=== PATIENT | female | born 1970 | race African-American/Black ===

== ENCOUNTER 2018-06-17 14:44 | Emergency (ER) | payer BC, SELFPAY ==
[2018-06-17 14:44] VITALS: BP 206/121; PULSE 97; RESP 16; TEMP 36.4; O2SAT 98; BMI 36.2
[2018-06-17 15:14] VITALS: BP 172/111; PULSE 90; RESP 16; O2SAT 98
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
[2018-06-17] MEDS: diazePAM 5 MG Tablet PO (15:39)
[2018-06-17] MEDS: oxyCODONE 5 MG Tablet PO (15:39)
[2018-06-17] MEDS: Naproxen 500 MG Tablet PO (15:40)
[2018-06-17 15:41] VITALS: BP 164/110
== END 2018-06-17 15:43 | disposition home or self-care (01) ==
PROVIDERS: Emergency Provider Emergency Medicine; Family Provider Family Medicine; PCP Family Medicine
DX: M62.830 Muscle spasm of back (principal); V89.2XXA Person injured in unspecified motor-vehicle accident, traffic, initial encounter; Y93.9 Activity, unspecified; Y92.9 Unspecified place or not applicable; M54.9 Dorsalgia, unspecified; J45.909 Unspecified asthma, uncomplicated; E11.9 Type 2 diabetes mellitus without complications; I10 Essential (primary) hypertension; Z79.84 Long term (current) use of oral hypoglycemic drugs; Z79.899 Other long term (current) drug therapy
CPT/HCPCS: 99283

== ENCOUNTER 2019-04-20 19:25 | Observation (INO) | payer BC, SELFPAY ==
[2019-04-20] VITALS (10 sets, daily range): BP systolic 74–127; BP diastolic 34–88; PULSE 78–96; RESP 15–20; TEMP 36.6–37; O2SAT 97–100; BMI 36.9; BMI 36.8
--- NOTE | 2019-04-20 19:36 | EKG12_ITS ---
Test Reason : Blood Pressure : / mmHG Vent. Rate : 084 BPM Atrial Rate : 084 BPM P-R Int : 126 ms QRS Dur : 082 ms QT Int : 396 ms P-R-T Axes : 055 042 048 degrees QTc Int : 467 ms Normal sinus rhythm Nonspecific ST abnormality Abnormal ECG Confirmed by SARAVANAN MACHADO, JOVON ([id number]), non linear editor RAY PANDEY ([id number]) on 04/21/2019 1:23:09 PM Referred By: Leo Ge Confirmed By:JOVON COE MD
--- NOTE | 2019-04-20 19:48 | ED.DCSUM_ITS ---
- ER Visit Summary Date of Service: 04/20/19 Chief Complaint: Rash, hives and itching History of Present Illness: The patient is a 48 F history of prior stroke earlier this year and [id number] diabetes. Patient states within the last hour she started having highs, itching and just not feeling well. States that the only time she had allergic reaction before with the fish and thinks that she may have ate something that had fish with it was cooked with it. She denies any nausea, vomiting or diarrhea. No fever. She is on no new medications. She is not on any type of WHIT inhibitor. And she is currently not on any antibiotics. Physical Examination: Middle-aged female no acute distress vital signs are stable afebrile. HEENT exam minimal swelling to her lower lip. Tongue unremarkable. No trouble swallowing, breathing. No drooling or stridor. Neck nontender. Lungs clear to auscultation bilaterally. No wheezing. Heart regular rhythm no murmur. Rate about 90. Abdomen is soft and nontender. Normal bowel sounds no peritoneal signs. Patient moving all 4 extremities. Neurovascular intact. She has a rash consistent with hives on both thighs her abdomen and back. Neurologically she is awake alert with no focal motor deficits. She is moving all 4 extremities. Test Results: Patient states she was dizzy the nurses per protocol did an EKG which showed a sinus rhythm rate 84 with no acute signs of AR or ischemia. I do not think there is any type of cardiac etiology at this time. Emergency Department Course and Treatment: Patient's history exam is consistent with a diffuse allergic reaction with hives. She will be treated with IV Solu- Medrol, IV Benadryl and p.o. Pepcid. Repeat exam patient is doing well at 2110. She was given a dose of p.o. Ativan for being anxious. Her rash is resolving she looks better. Repeat exam this patient rash is improving but was still present. We still during her pressure dropped in the 80s systolically. She is Nael received a liter of fluid. She will be given a second. I do not think she needs epinephrine at this time given her age, diabetes and recent stroke unless she worsens I do not think epinephrine is necessary. I do think she would warrant admission to be observed overnight. I discussed this with the hospitalist. Due to the admission he wanted some screening labs were to be checked out to be overnight.and the patient will be admitted to PCU Treatment Plan: Prednisone daily. Benadryl for the itching. Follow-up if not improving return if worse. Disposition: Discharge Impression: Acute generalized allergic reaction with hives with transient hypotension History of prior CVA History of diabetes This note was generated with [employer] dictation software. It may contain incorrect words, spelling, and punctuation that were not noted in review of the chart prior to signing ED Disposition - Plan for ED Patient: Disposition: Home or Assisted Living Instructions: ED Urticaria Prescriptions: Prednisone [Deltasone] 40 mg PO DAILY 3 Days tab Referrals: Jaspreet Henry MD [Primary Care Provider] - 3-5 Days if not improving Additional Instructions: Prednisone for the hives. Take daily. Watch her blood sugars closely because the prednisone will increase your blood sugars typically. Benadryl also for itching and the allergic reaction. Follow-up with your doctor if not improving return if worse.
[2019-04-20] MEDS: DiphenhydrAMINE 50 MG/ML Syringe IV (19:50)
[2019-04-20] MEDS: Famotidine 20 MG Tablet 40 MG PO (19:50)
[2019-04-20] MEDS: MethylPREDNISolone 125 MG/2 ML Vial IV (19:50)
--- NOTE | 2019-04-20 21:11 | ED.DEP ---
ED Disposition - Plan for ED Patient: Disposition: Home or Assisted Living Instructions: ED Urticaria Prescriptions: Prednisone [Deltasone] 40 mg PO DAILY 3 Days tab Referrals: Jaspreet Henry MD [Primary Care Provider] - 3-5 Days if not improving Additional Instructions: Prednisone for the hives. Take daily. Watch her blood sugars closely because the prednisone will increase your blood sugars typically. Benadryl also for itching and the allergic reaction. Follow-up with your doctor if not improving return if worse.
[2019-04-20] MEDS: LORazepam 1 MG Tablet PO (21:21)
--- NOTE | 2019-04-20 21:37 | ED.RN ---
1929 STOOD PT UP FOR DC AND SHE STATES SHE FELT DIZZY AND NAUSEOUS. SAT HER IN WHEELCHAIR AND BP WAS 74/34. PULSE 84 SPO2 97 ON RA. WITH ASSISTANCE, WE RETURNED PT TO THE BED FOR OBSERVATION. 1934 BP IS 113/62. FAMILY PRESENT IN ROOM. WILL CONTINUE TO MONITOR.
--- NOTE | 2019-04-20 21:59 | ED.RN ---
HOSPITALIST PAGED FOR DR PEREIRA
--- NOTE | 2019-04-20 22:00 | ED.RN ---
Addendum entered by Marisela Alexander 04/20/19 22:30: PT PLACED BACK ON BED REMAINS IN SAFE AND COMFORTABLE POSITIONING. 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 PT TO BE ADMITTED PER DR. PEREIRA. Original Note: PT REPORTS CONTINUED NAUSEA AND DIZZINESS. PT ORTHOS POSITIVE. DR. PEREIRA INFORMED WILL CONTINUE TO MONITOR.
--- NOTE | 2019-04-20 22:04 | HP.PCM_ITS ---
Problem List (1) Allergic reaction Status: Acute (2) Diabetes Status: Chronic History of Present Illness Date of Admission: 04/20/19 Chief Complaint: hives. 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 Her symptoms started on the same day of presentation. Associated with her symptoms is generalized body itching. Lightheadedness; and weakness which caused her to sit down. Also patient reports lip swelling and swelling of her face. At emergency department patient was given Benadryl; Pepcid; Ativan and methylprednisone. The plan was to discharge patient for the emergency department. However patient systolic blood pressure was 120s but upon getting up her systolic blood pressure dropped to the 80s for which reason a consideration was made to admit the patient. Also patient received IV fluids at the emergency department. Although, she is allergic to face she denies eating fish or coming into contact with fish. She cannot pinpoint any trigger at this time except using a blanket of her brother who recently flew from [place]. Her brother also denied eating fish. Past Medical History Past Medical History (Chronic Problems): Chronic Problems (Last Reviewed 04/20/19 @ 22:58 by Leo Ge MD) Diabetes (Chronic) Medical History: Medical History (Last Reviewed 04/20/19 @ 22:58 by Leo Ge MD) Asthma J45.909 Diabetes E11.9 HTN (hypertension) I10 Allergies Tetanus Vaccines and Toxoid Adverse Reaction (Verified 01/25/18 11:22) Hives Home Medications: Ambulatory Orders Medication Instructions Recorded hydroCHLOROthiazide 1 tab PO DAILY 09/21/16 [Hydrochlorothiazide] amlodipine 10 mg tablet 10 mg PO DAILY 30 Days #30 01/25/18 metformin 500 mg tablet 1,000 mg PO BID 30 Days #60 01/25/18 Diazepam [Valium] 5 mg PO Q8 PRN #10 tablet 06/17/18 Naproxen [Naprosyn] 500 mg PO BID PRN PRN #20 tablet 06/17/18 Oxycodone HCl/Acetaminophen 1 tablet PO Q6H PRN PRN 3 Days #12 06/17/18 [Percocet 5/325] tablet Aspirin [Adult Low Dose Aspirin EC] 81 mg PO 04/20/19 Clopidogrel Bisulfate [Plavix] 75 mg PO DAILY 04/20/19 Glimepiride [Amaryl] 1 mg PO DAILY 04/20/19 Metoprolol Tartrate [Lopressor 25 mg PO BID 04/20/19 (Beta Leora)] Prednisone [Deltasone] 40 mg PO DAILY 3 Days tab 04/20/19 Surgical History: Surgical History (Last Updated 01/25/18 @ 11:23 by Juana Carmona) Ovarian mass N83.9 Smoking Status: Never smoker Review of Systems Constitutional: Reports: Weakness. Denies: Fever, Weight Change HEENT: Denies: Head Aches, Sinus Congestion, Sinus Drainage Cardiovascular: Reports: Light Headedness. Denies: Chest Pain, Palpitations Respiratory: Denies: Cough, Shortness of breath at rest, Sputum production Gastrointestinal: Reports: Nausea. Denies: Abdominal Pain, Vomiting Genitourinary: Denies: Dysuria Musculoskeletal: Denies: Joint Pain, Joint Tenderness Skin: Denies: Rash, Wounds Neurological: Denies: Numbness, Tingling, Focal weakness Psychiatric: Denies: Anxiety, Depression, Homicidal Ideations, Suicidal Keely ations Hematologic/ Lymphatic: Denies: Easy Bruising, Easy Bleeding VTE Information - Inpt Only VTE Present on Admission: No VTE Mechan Device Prophylaxis: None VTE Pharm Prophylaxis ordered?: Yes Patient Problems: Active and Suspected Problems (Last Reviewed 04/20/19 @ 22:58 by Leo Ge MD) Allergic reaction (Acute) - Physical Exam General: Alert, Oriented x3, Cooperative, - - Observed rigors HEENT: Atraumatic, Normocephalic, - - Lower lip swelling Neck: Supple, No JVD, Negative Carotid Bruits Lungs: Clear to auscultation, Normal air movement Cardiovascular: Regular rate, No murmurs Abdomen: Bowel Sounds Present, Soft, Non Tender Extremities: No edema, Capillary Refill Less than 3 Seconds Skin: No breakdown, - - Diffuse wheals Musculoskeletal: No Tenderness to Palpation of Joints or Extremities Neurological: Neuro grossly intact Psych/Mental Status: Normal Affect, Appropriate Vital Signs Temp Pulse Resp BP Pulse Ox 98.2 F 86 16 115/88 H 97 04/20/19 19:26 04/20/19 21:57 04/20/19 21:32 04/20/19 21:57 04/20/19 21:32 Oxygen Delivery Method Room Air Weight: 97.7 kg Body Mass Index (BMI) 36.9 Assessment/Plan All Active Problems (Last Reviewed 04/20/19 @ 22:58 by Leo eG MD) Allergic reaction (Acute) The patient is a 48 year old F with a significant history of CVA; hypertension; diabetes mellitus and 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 Probable Allergic reaction We will admit to progressive care unit on observation status and on telemetry. Received IV fluid at the emergency department. We will continue normal saline infusion. We will hold home blood pressure medications. Received Solu-Medrol; Pepcid and Benadryl at emergency department. Also received Ativan. Solu-Medrol; Pepcid and loratadine scheduled. PRN Benadryl and epinephrine ordered. Lactic acidosis: Lactic acid is 3.8. Likely due to probable allergic reaction or dehydration. Her metformin use could also be contributing to her elevated lactic acid. Hold metformin. IV hydration as above. Trend lactic acid. Elevated creatinine without diagnosis of MARIANA: On presentation her creatinine was 1.27. Review of records show that in 2016 her creatinine was 1.08. IV fluids as above. Trend BMP. Diabetes mellitus with acute hyperglycemia. On admission her blood glucose was not within goal. Hold home metformin because of lactic acidosis. Continue Amaryl. Accu-Chek every 4 hours with correction scale insulin. Neutrophilic leukocytosis: Mild. Trend. History of CVA: Aspirin and Plavix continued. Hypertension: Hold home anti-hypertensive medication because of orthostatic hypotension in the setting of probable allergic reaction. Repeat orthostatic blood pressure in a.m. labetalol as needed for systolic blood pressure more than 160. DVT prophylaxis: Subcutaneous Lovenox. Code Visit OBSV E&M: 74775 Initial observation care L3
[2019-04-20] MEDS: 0.9% Normal Saline 1,000 ML 1000 ML IV (22:14)
[2019-04-20 22:30] LABS: Absolute Lymphocyte Count 2.59 X10^3/ul (0.83-4.51); Absolute Neutrophil Count 8.5 X10^3/uL (2.0-7.7); Basophil# 0.01 X10^3/uL; Basophil% 0.1 % (0-1); Eosinophil# 0.03 X10^3/uL; Eosinophils% 0.3 % (0-5); Hematocrit 43.6 % (37-47); Hemoglobin 14.3 g/dl (12.0-15.0); Lymphocyte # 2.59 X10^3/ul (4.0); Lymphocyte % 22.3 % (19-41); Mean Corp Hgb Conc 32.8 g/gl (32-36); Mean Corpuscular Hgb 27.1 pg (27.0-32.0); Mean Corpuscular Volume 82.7 fL (81-99); Mean Platelet Vol. 9.7 fl (6.2-12.0); Monocyte% 4.3 % (0-10); Neutrophil # 8.45 X10^3/uL (2.7-7.7); Neutrophil % 72.7 % (47-70); Platelet Count 362 K/mm3 (150-450); RBC Distribution Width CV 14.3 % (11.6-14.6); RBC Distribution Width SD 43.4 fl (35.1-43.9); Red Blood Count 5.27 M/mm3 (4.2-5.4); White Blood Count 11.6 K/mm3 (4.4-11.0)
[2019-04-20 22:35] LABS: POSITIVE COUNT NO; POSITIVE DIFFERENTIAL NO; POSITIVE MORPHOLOGY NO
[2019-04-20 22:41] LABS: Anion Gap 13 (5-15); BUN 16 mg/dL (7-18); BUN/Creat Ratio 12.6 RATIO (10-20); Calcium,Total 9.1 mg/dL (8.5-10.1); Chloride 101 mmol/L (98-107); Creatinine, Serum 1.27 mg/dL (0.55-1.02); EST Glomerular Filtration Rate 47 mL/min (>60); Est Glom Filt Rate - Afr Amer 57 mL/min (>60); Estimated Creatinine Clearance 45.76 ml/min; Glucose 325 mg/dL (74-106); Sodium Level 142 mmol/L (136-145)
[2019-04-20 22:57] LABS: Lactic Acid 3.8 mmol/L (0.4-2.0)
--- NOTE | 2019-04-20 22:59 | ED.RN ---
DR DE LEON AND DR GALARZA BOTH AWARE OF PT'S LACTIC ACID RESULTS.
[2019-04-21] MEDS: Insulin Lispro 100 UNIT/ML INSULN.PEN SQ ×3 (00:06→10:15)
[2019-04-21] MEDS: Loratadine 10 MG Tablet PO ×2 (00:06→10:17)
[2019-04-21] MEDS: 0.9% NaCl Peripheral Flush Adult/Peds IV ×2 (00:08→05:17)
[2019-04-21 00:11] LABS: Bedside Glucose 283 mg/dL (70-110)
[2019-04-21 02:26] LABS: Reflex Lactate? Y
[2019-04-21 03:02] VITALS: PULSE 79
[2019-04-21 03:10] LABS: Anion Gap 8 (5-15); BUN 14 mg/dL (7-18); BUN/Creat Ratio 12.4 RATIO (10-20); Calcium,Total 8.7 mg/dL (8.5-10.1); Chloride 105 mmol/L (98-107); Creatinine, Serum 1.13 mg/dL (0.55-1.02); EST Glomerular Filtration Rate 54 mL/min (>60); Est Glom Filt Rate - Afr Amer 65 mL/min (>60); Estimated Creatinine Clearance 49.27 ml/min; Glucose 292 mg/dL (74-106); Potassium 4.7 mmol/L (3.5-5.1); Sodium Level 137 mmol/L (136-145)
[2019-04-21 03:28] LABS: Hematocrit 39.2 % (37-47); Hemoglobin 12.7 g/dl (12.0-15.0); Mean Corp Hgb Conc 32.4 g/gl (32-36); Mean Corpuscular Hgb 26.6 pg (27.0-32.0); Mean Platelet Vol. 9.9 fl (6.2-12.0); Platelet Count 353 K/mm3 (150-450); RBC Distribution Width CV 14.3 % (11.6-14.6); RBC Distribution Width SD 42.7 fl (35.1-43.9); Red Blood Count 4.78 M/mm3 (4.2-5.4); White Blood Count 7.5 K/mm3 (4.4-11.0)
[2019-04-21 03:29] LABS: Scan Indicated on CBC? Y/N NO
[2019-04-21 03:43] LABS: Lactic Acid 3.9 mmol/L (0.4-2.0)
[2019-04-21 05:11] LABS: Bedside Glucose 261 mg/dL (70-110)
[2019-04-21 05:20] VITALS: BP 124/78; PULSE 85; RESP 18; TEMP 36.6; O2SAT 99
[2019-04-21 05:30] VITALS: BP 118/73; BP 124/78; BP 126/78; PULSE 100; PULSE 79; PULSE 81
[2019-04-21 07:08] VITALS: PULSE 90
[2019-04-21 07:23] VITALS: O2SAT 97
[2019-04-21] MEDS: Clopidogrel Bisulfate 75 MG Tablet PO (08:42)
[2019-04-21] MEDS: Famotidine 20 MG Tablet PO (08:42)
[2019-04-21] MEDS: Glimepiride 1 MG Tablet PO (08:42)
--- NOTE | 2019-04-21 09:17 | NURSING ---
patient walked in halls, no SOB or unsteadiness
[2019-04-21 10:20] LABS: Bedside Glucose 248 mg/dL (70-110)
--- NOTE | 2019-04-21 10:34 | DCINST_ITS ---
- Discharge Diagnoses Current Active Problems: Current Active and Chronic Problems (Last Reviewed 04/20/19 @ 22:58 by Leo Ge MD) Allergic reaction (Acute) Diabetes (Chronic) You will use the following diet at home:: Calorie/Carbohydrate Controlled (specify 1200, 1400, etc) - 1800 garcía Your food should be the consistency of: Regular Your liquids should be the consistency of: Regular/Thin Discharge Activity: Return to Normal Activity Weight Bearing Status: Full weight bearing Instructions: ED Urticaria Additional Instructions: take Benadryl 25 mg four times a day as needed for allergic symptoms Allergies/Adverse Reactions: Allergies Fish Containing Products Allergy (Verified 04/20/19 23:31) Swelling Tetanus Vaccines and Toxoid Adverse Reaction (Verified 01/25/18 11:22) Hives Medications to take at Discharge hydroCHLOROthiazide [Hydrochlorothiazide] 1 tab PO DAILY 09/21/16 amlodipine 10 mg tablet 10 mg PO DAILY 30 Days #30 01/25/18 metformin 500 mg tablet 1,000 mg PO BID 30 Days #60 01/25/18 Aspirin [Adult Low Dose Aspirin EC] 81 mg PO DAILY 04/20/19 Clopidogrel Bisulfate [Plavix] 75 mg PO DAILY 04/20/19 Glimepiride [Amaryl] 1 mg PO DAILY 04/20/19 Metoprolol Tartrate [Lopressor (beta gato)] 12.5 mg PO BID 04/20/19 MethylPREDNISolone DosePak [Medrol DosePak] 4 mg PO UD #1 box 04/21/19 The following prescriptions were given: MethylPREDNISolone DosePak [Medrol DosePak] 4 mg PO UD #1 box Primary Care Physician: Jaspreet Henry MD [Primary Care Provider] - 3-5 Days if not improving Please follow up with your Primary Care Physician in: in 1-2 weeks Test Results: Test results from this visit will be discussed in further detail at your follow- up appointment, if applicable.
[2019-04-21 11:00] VITALS: BP 114/71; PULSE 87; RESP 16; TEMP 36.8; O2SAT 97
--- NOTE | 2019-04-21 11:13 | PHA.DC.MC ---
Pharmacy Service has performed discharge medication reconciliation and counseling for this patient. The patient's discharge medication list was reviewed for discrepancies and discrepancies were resolved. The patient was counseled on the following discharge medications and changes in medications for homegoing were reviewed. 1. MEDROL DOSEPAK The Reason for Use, instructions for use, and potential side effects were reviewed for all new medications. The patient's questions regarding all of their medications were answered. The patient demonstrated some understanding but would benefit from further education and reinforcement.
--- NOTE | 2019-04-21 19:21 | DS.PCM_ITS ---
Discharge Date and Diagnosis Date of Admission: 04/20/19 Date of Discharge: 04/21/19 - Primary Discharge Diagnosis #1 acute allergic reaction with hives-etiology unclear #2 hypertension #3 type 2 diabetes - Secondary Discharge Diagnosis Chronic Problems (Last Reviewed 04/20/19 @ 22:58 by Leo Ge MD) Diabetes (Chronic) Hospital Course and Treatment Operations: None Procedures: None Summary of Care Provided: The patient is a 48 year old F was seen in the emergency room at [facility] with a chief complaint of rash, hives, and itching. She is highly allergic to fish and wonders whether she could have come into contact with fish. 613 examination in the emergency room showed the patient have a rash consistent with hives on both of her thighs, her abdomen, and her back. Patient had no shortness of breath and the remainder of her work-up was unremarkable. Patient was given Ativan p.o. for anxiety in the emergency room, rash appeared to be improved after ministration of IV Solu-Medrol, p.o. Pepcid, and IV Benadryl. She was also given IV fluids. The emergency room physician felt the patient should be observed overnight and the patient was placed in observation status on PCU and IV corticosteroids were continued. Patient's rash improved markedly and on 04/21/2019, patient was seen and examined: On examination she appeared in good health and spirits. Vital signs as documented. Skin warm and dry and without overt rashes. Neck without JVD. Lungs clear. Heart exam notable for regular rhythm, normal sounds and absence of murmurs, rubs or gallops. Abdomen unremarkable and without evidence of organomegaly, masses, or abdominal aortic enlargement. Extremities nonedematous. Neuro: Cranial nerves II through XII are grossly intact, no focal motor deficits were noted, sensation to light touch and pinprick is intact. Psych: Patient is alert and oriented x3, she does not appear anxious or depressed On 04/21/2019, patient was discharged home in stable condition. - Physical Exam Vital Signs Temp Pulse Resp BP Pulse Ox 98.2 F 87 16 114/71 97 04/21/19 11:00 04/21/19 11:00 04/21/19 11:00 04/21/19 11:00 04/21/19 11:00 Oxygen Delivery Method Room Air Weight: 94.4 kg Body Mass Index (BMI) 36.8 Intake and Output for Last 24 Hours 04/19/19 04/20/19 04/21/19 23:59 23:59 23:59 Intake Total 911 / 911 Balance 911 / 911 Laboratory Tests Past 24 Hrs 04/20/19 04/20/19 04/20/19 22:10 22:10 22:10 WBC 11.6 H RBC 5.27 Hgb 14.3 Hct 43.6 MCV 82.7 MCH 27.1 MCHC 32.8 RDW 14.3 RDW Differential 43.4 Plt Count 362 MPV 9.7 Immature Gran % (Auto) 0.300 Neut % (Auto) 72.7 H Lymph % (Auto) 22.3 [place] % (Auto) 4.3 Eos % (Auto) 0.3 Baso % (Auto) 0.1 Absolute Neuts (auto) 8.5 H Absolute Lymphs (auto) 2.59 Total Counted Not Reportable Sodium 142 Potassium 4.0 Chloride 101 Carbon Dioxide 28.0 Anion Gap 13 BUN 16 Creatinine 1.27 H Estim Creat Clear Calc 45.76 Est GFR (MDRD) Af Amer 57 L Est GFR (MDRD) Non-Af 47 L BUN/Creatinine Ratio 12.6 Glucose 325 H Lactic Acid 3.8 H Calcium 9.1 04/21/19 04/21/19 04/21/19 02:39 02:39 02:39 WBC 7.5 RBC 4.78 Hgb 12.7 Hct 39.2 MCV 82.0 MCH 26.6 L MCHC 32.4 RDW 14.3 RDW Differential 42.7 Plt Count 353 MPV 9.9 Immature Gran % (Auto) Neut % (Auto) Lymph % (Auto) [place] % (Auto) Eos % (Auto) Baso % (Auto) Absolute Neuts (auto) Absolute Lymphs (auto) Total Counted Sodium 137 Potassium 4.7 Chloride 105 Carbon Dioxide 24.0 Anion Gap 8 BUN 14 Creatinine 1.13 H Estim Creat Clear Calc 49.27 Est GFR (MDRD) Af Amer 65 Est GFR (MDRD) Non-Af 54 L BUN/Creatinine Ratio 12.4 Glucose 292 H Lactic Acid 3.9 H Calcium 8.7 POC Glucose 04/21/19 04/21/19 04/21/19 10:13 05:08 00:04 POC Glucose 248 H 261 H 283 H Discharge Activity: Return to Normal Activity Weight Bearing Status: Full weight bearing Home Medications: Medications to take at Discharge hydroCHLOROthiazide [Hydrochlorothiazide] 1 tab PO DAILY 09/21/16 amlodipine 10 mg tablet 10 mg PO DAILY 30 Days #30 01/25/18 metformin 500 mg tablet 1,000 mg PO BID 30 Days #60 01/25/18 Aspirin [Adult Low Dose Aspirin EC] 81 mg PO DAILY 04/20/19 Clopidogrel Bisulfate [Plavix] 75 mg PO DAILY 04/20/19 Glimepiride [Amaryl] 1 mg PO DAILY 04/20/19 Metoprolol Tartrate [Lopressor (beta gato)] 12.5 mg PO BID 04/20/19 MethylPREDNISolone DosePak [Medrol DosePak] 4 mg PO UD #1 box 04/21/19 Following Prescrptions Were Given to Patient: MethylPREDNISolone DosePak [Medrol DosePak] 4 mg PO UD #1 box Primary Care Physician: Jaspreet Henry MD [Primary Care Provider] - 3-5 Days if not improving Please follow up with your Primary Care Physician in: in 1-2 weeks Patient Instructions: ED Urticaria Disposition: Home Minutes spent on discharge:: 30 Patient Condition:: Stable Medical Necessity - Tobacco Use Smoking Status: Never smoker Meaningful Use Info Meaningful Use Diagnoses (Choose all that apply): None applicable Code Visit OBSV E&M: 41500 Observation care discharge
== END 2019-04-21 10:34 | disposition home or self-care (01) ==
LOC: ED 21:13 → PCU 23:02
PROVIDERS: Admitting Provider Hospitalist; Emergency Provider Emergency Medicine; Family Provider Family Medicine; PCP Family Medicine; Referring Provider Hospitalist; Visit Provider Internal Medicine
DX: L50.0 Allergic urticaria (principal); E11.9 Type 2 diabetes mellitus without complications; I10 Essential (primary) hypertension; Z79.02 Long term (current) use of antithrombotics/antiplatelets; Z79.899 Other long term (current) drug therapy; Z79.82 Long term (current) use of aspirin; Z79.84 Long term (current) use of oral hypoglycemic drugs; F41.9 Anxiety disorder, unspecified; Z86.73 Personal history of transient ischemic attack (TIA), and cerebral infarction without residual deficits; J45.909 Unspecified asthma, uncomplicated; E87.2 Acidosis
CPT/HCPCS: 80048; 82962; 83605; 85025; 85027; 93005; 96361; 96374; 96375; 96376; 99218; 99285; J7030; A4216; G0378

== ENCOUNTER 2020-07-18 14:05 | Emergency (ER) | payer MEDICAID, SELFPAY ==
[2019-04-20 23:25] VITALS: BMI 36.8
[2020-07-18 14:05] VITALS: BP 151/93; PULSE 77; RESP 16; TEMP 36.3; O2SAT 100; BMI 32.9
--- NOTE | 2020-07-18 14:32 | ED.VISSUMM ---
- ER Visit Summary Date of Service: 07/18/20 Chief Complaint: [Dental pain] History of Present Illness: The patient is a 50 F [presents the emergency department complaint of dental pain for the last 2 days. Patient states that she is actually had pain off and on for several months. Patient states that she had a stroke last year and ever since her stroke her teeth started to move. Patient states over last 2 days she is having hard time sleeping because of the pain in her mouth and it seems that the pain radiates to the right side of her head. Patient denies any photophobia or nausea. She denies any fevers. Patient is a diabetic and has history of hypertension as well as cholesterol history of stroke.] Physical Examination: [HEENT-PERRLA, EOMI. Cranial nerves II through XII grossly intact. TMs clear. Mucous membranes moist. No adenopathy. Titian-patient has tenderness palpation to her right lower second molar that seems to reproduce her pain. She has some gingival erythema noted. There is no abscess noted on exam. No fluctuance. There are some mild swelling to the right lower side of the face. No facial cellulitis noted. Cardiovascular-regular rate and rhythm without murmur or ectopy Lungs-clear to auscultation, chest wall stable without crepitus or subcu emphysema Abdomen-normoactive bowel sounds, soft, nontender, no rebound or rigidity, no peritoneal signs. Extremities-intact ?4, normal range of motion, normal pulses, atraumatic] Test Results: [None indicated] Emergency Department Course and Treatment: [] Treatment Plan: [Patient will be treated with clindamycin and [place] for pain. Patient will be referred to dentist for follow-up. Patient advised to return if fever, worsening pain, increased swelling, or condition should worsen anyway.] Disposition: [Discharged home in stable condition] Impression: [Dental pain Cephalgia] This note was generated with [employer] dictation software. It may contain incorrect words, spelling, and punctuation that were not noted in review of the chart prior to signing ED Disposition - Plan for ED Patient: Referrals: Jaspreet Henry MD [Primary Care Provider] -
--- NOTE | 2020-07-18 14:34 | ED.DEP ---
ED Disposition - Plan for ED Patient: Instructions: ED Headache Unspecified, ED Tooth Pain Prescriptions: Clindamycin HCl [Cleocin] 300 mg PO Q6H #40 cap Transmission Status: Pending to [facility] Hydrocodone Bitart/Apap 5-325 [[place] 5MG-325MG] 1 tablet PO Q4H PRN PRN 2 Days #14 tablet PRN Reason: Pain Transmission Status: Received by [facility] Referrals: Jaspreet Henry MD [Primary Care Provider] - Additional Instructions: see a dentist
== END 2020-07-18 14:45 | disposition home or self-care (01) ==
PROVIDERS: Emergency Provider Emergency Medicine; PCP Family Medicine
DX: K08.89 Other specified disorders of teeth and supporting structures (principal); R51 Headache; I10 Essential (primary) hypertension; E11.9 Type 2 diabetes mellitus without complications; Z86.73 Personal history of transient ischemic attack (TIA), and cerebral infarction without residual deficits; Z79.82 Long term (current) use of aspirin; Z79.84 Long term (current) use of oral hypoglycemic drugs; Z79.02 Long term (current) use of antithrombotics/antiplatelets; Z79.899 Other long term (current) drug therapy
CPT/HCPCS: 99282

== ENCOUNTER 2022-10-22 20:16 | Emergency (ER) | payer MEDICAID, SELFPAY ==
[2022-10-22 20:16] VITALS: BP 196/101; PULSE 131; RESP 18; TEMP 35.6; O2SAT 97
[2022-10-22 20:17] VITALS: BP 196/101; PULSE 131; RESP 18; TEMP 35.6; O2SAT 97; BMI 35.1
--- NOTE | 2022-10-22 20:51 | EKG12_ITS ---
Test Reason : DIZZINESS Blood Pressure : / mmHG Vent. Rate : 070 BPM Atrial Rate : 070 BPM P-R Int : 140 ms QRS Dur : 078 ms QT Int : 400 ms P-R-T Axes : 040 005 037 degrees QTc Int : 432 ms Normal sinus rhythm Normal ECG Confirmed by SARAVANAN MACHADO, JOVON ([id number]), editor index ZOILA DOS SANTOS ([id number]) on 10/23/2022 12:57:15 PM Referred By: Confirmed By:JOVON COE MD
--- NOTE | 2022-10-22 20:54 | EDS_ITS ---
HPI History of Present Illness Chief Complaint: Dizziness Informant: patient Narrative Narrative: 52-year-old female presenting with body aches, fever, cough. Symptoms started approximately 2 days ago. She states she has had lightheadedness with no syncope. Denies chest pain or shortness of breath. She has had nausea with no vomiting. Denies diarrhea. Denies abdominal pain. Multiple sick contacts. Prior similar symptoms: Yes Recent Illness/Hospitalization: No PFSH PFSH Medical History Asthma Diabetes HTN (hypertension) Home Medications hydrochlorothiazide 12.5 mg capsule 1 tab PO DAILY BLOOD PRESSURE 09/21/16 [History Last Taken Unknown] amlodipine 10 mg tablet 10 mg PO DAILY ANTIPLATELET 30 days ##30 01/25/18 [History Last Taken Unknown] metformin 500 mg tablet 1,000 mg PO BID BLOOD PRESSURE 30 days ##60 01/25/18 [History Last Taken Unknown] aspirin 81 mg tablet,delayed release (Adult Low Dose Aspirin) 81 mg PO DAILY ANTIPLATELET 04/20/19 [History Last Taken Unknown] clopidogrel 75 mg tablet 75 mg PO DAILY 04/20/19 [History Last Taken Unknown] glimepiride 1 mg tablet 1 mg PO DAILY BP 04/20/19 [History Last Taken Unknown] metoprolol tartrate 25 mg tablet 12.5 mg PO BID 04/20/19 [History Last Taken Unknown] methylprednisolone 4 mg tablets in a dose pack 4 mg PO UD ##1 04/21/19 [Rx Last Taken Unknown] clindamycin HCl 300 mg capsule 300 mg PO Q6H #40 caps 07/18/20 [Rx Last Taken Unknown] Allergy/AdvReac Type Severity Reaction Status Date / Time Fish Containing Products Allergy Swelling Verified 07/18/20 14:07 Tetanus Vaccines and Toxoid AdvReac Hives Verified 07/18/20 14:07 Surgical History Ovarian mass Social History Smoking Status: Never smoker alcohol intake: never ROS ROS ED Constitutional Constitutional ED: Reports chills and fever(s) Eyes Eyes: Denies change in vision ENT ENT ED: Reports rhinorrhea and sore throat Cardiovascular Cardiovascular: Denies chest pain or palpitations Respiratory/Chest Respiratory/Chest: Reports cough; Denies dyspnea Gastrointestinal Gastrointestinal: Reports nausea; Denies abdominal pain, diarrhea or vomiting Genitourinary Genitourinary ED: Denies dysuria Musculoskeletal Musculoskeletal: Reports myalgias; Denies neck pain Integumentary Denies rash Neurologic Neurologic: Denies headache(s) Psychiatric Psychiatric: Denies suicidal thoughts EXAM Physical Exam Const Vital Signs: 10/22/22 20:17 10/22/22 20:16 10/22/22 22:41 Temperature 96.0 F L 96.0 F L Temperature Source Temporal Temporal Pulse Rate 131 H 131 H 65 Respiratory Rate 18 18 16 Blood Pressure 196/101 H 196/101 H 152/87 H Blood Pressure Mean 132 132 108 Pulse Ox 97 97 100 Oxygen Delivery Method Room Air Room Air Room Air Positive well nourished and well developed General Appearance ED: well developed HEENT Reports normocephalic and head/scalp atraumatic Eyes PERRL and EOMs intact bilaterally Neck supple Neck Narrative: No meningismus General: Negative for tenderness Chest Wall inspection of chest normal Resp normal respiratory effort and clear to auscultation bilaterally Cardio regular rhythm Rate: tachycardic GI non-tender and non-distended Palpation: soft; Negative for guarding or rebound tenderness present no CVA tenderness Extremity normal to inspection Neuro oriented x3, CN's II-XII intact bilaterally and no sensory deficits noted Sensorium / Orientation: alert Motor Exam: strength 5/5 throughout Psych mental status grossly normal MDM MDM MDM Narrative Medical decision making narrative: Patient given IV fluids, Zofran, Toradol. CBC, chemistries are unremarkable. Troponin is negative. Chest x-ray read by myself and radiology shows no acute process. EKG is sinus rhythm rate of 70 with no acute ischemic changes. COVID- negative, influenza A positive. Patient is feeling improved on reevaluation. She is comfortable with discharge home. Advised signs and symptoms for which to return to ED. Advised to follow-up with primary care physician. Lab Data Attestation: I reviewed the patient's lab results. Labs: Laboratory Results - last 24 hr 10/22/22 10/22/22 21:05 21:05 WBC 4.4 RBC 5.13 Hgb 13.4 Hct 42.4 MCV 82.7 MCH 26.1 L MCHC 31.6 L RDW Std Deviation 47.3 H RDW Coeff of Margy 15.5 H Plt Count 291 MPV 10.8 Immature Gran % (Auto) 0.200 Neut % (Auto) 30.4 L Lymph % (Auto) 52.1 H Castro % (Auto) 15.5 H Eos % (Auto) 1.6 Baso % (Auto) 0.2 Absolute Neuts (auto) 1.3 L Absolute Lymphs (auto) 2.28 Nucleated RBC % 0 Sodium 140 Potassium 3.5 Chloride 105 Carbon Dioxide 30.0 Anion Gap 5 BUN 16 Creatinine 0.98 Estim Creat Clear Calc 56.67 Est GFR (MDRD) Af Amer 76 Est GFR (MDRD) Non-Af 63 BUN/Creatinine Ratio 16.3 Glucose 183 H Calcium 8.6 Troponin I High Sens 8 Radiography Chest X-Ray - ED: 1 View, Read by ED Physician and Read by Radiologist Diagnostic Testing: Clinical Impression(s) from Imaging Studies Chest X-Ray 10/22/22 21:10 IMPRESSION: No acute disease Electronically Signed: Jorge Mark MD at 21:27 EST Reading Location ID and State: [address] [place] [address] , Service support , EKG Initial EKG: Attestation: I personally reviewed and interpreted this EKG as follows: Interpretation: Sinus Rhythm and No Acute Injury Pattern Discharge Plan Triage Chief Complaint: Dizziness ED Provider: Taylor Cruz Dx/Rx/DC Orders Clinical Impression: Influenza A Instructions: ED Influenza (Adult) Prescriptions: No Action metformin 500 mg tablet 1,000 mg PO BID 30 Days Qty: 60 Label Comments: amlodipine 10 mg tablet 10 mg PO DAILY 30 Days Qty: 30 Label Comments: take 1 tablet by mouth once daily hydrochlorothiazide 12.5 MG capsule 1 tab PO DAILY clopidogrel 75 MG tablet 75 mg PO DAILY glimepiride 1 MG tablet 1 mg PO DAILY metoprolol tartrate 25 MG tablet 12.5 mg PO BID aspirin [Adult Low Dose Aspirin] 81 MG Tablet.Dr 81 mg PO DAILY methylprednisolone 4 MG tablet 4 mg PO UD Qty: 1 0RF clindamycin HCl 300 MG capsule 300 mg PO Q6H Qty: 40 0RF Primary Care Provider: Jaspreet Henry Referrals: Jaspreet Henry MD [Primary Care Provider] - Disposition Disposition: Home, Self Care
--- NOTE | 2022-10-22 21:10 | RAD_ITS ---
STUDY: X-RAY CHEST REASON FOR EXAM: Female, 52 years old. cough TECHNIQUE: Single frontal view of the chest. COMPARISON: None. FINDINGS: Loop recorder Left chest. The lungs are clear and expanded. There is no demonstrated pleural abnormality. Normal size heart. Normal mediastinum and lesa. Normal visualized pulmonary arteries. Normal visualized aortic arch and descending thoracic aorta. Normal visualized thoracic spine. Normal visualized ribs, clavicles, and shoulders. There is no demonstrated abnormality of the visualized soft tissue structures of the upper abdomen. RAD/Chest 1 View (Portable) IMPRESSION: No acute disease Electronically Signed: Jorge Mark MD at 21:27 EST ,
[2022-10-22 21:12] LABS: Absolute Lymphocyte Count 2.28 X10^3/uL (0.83-4.51); Absolute Neutrophil Count 1.3 X10^3/uL (2.0-7.7); Basophil# 0.01 X10^3/uL; Basophil% 0.2 % (0-1); Eosinophil# 0.07 X10^3/uL; Eosinophils% 1.6 % (0-5); Hematocrit 42.4 % (37-47); Hemoglobin 13.4 g/dL (12.0-15.0); Lymphocyte # 2.28 X10^3/ul (0.83-4.51); Lymphocyte % 52.1 % (19-41); Mean Corp Hgb Conc 31.6 g/dL (32-36); Mean Corpuscular Hgb 26.1 pg (27.0-32.0); Mean Corpuscular Volume 82.7 fL (81-99); Mean Platelet Vol. 10.8 fl (6.2-12.0); Monocyte# 0.68 X10^3/uL; Monocyte% 15.5 % (0-10); NRBC Flagged by Analyzer 0 % (0-5); Neutrophil # 1.33 X10^3/uL (2.7-7.7); Neutrophil % 30.4 % (47-70); Platelet Count 291 K/mm3 (150-450); RBC Distribution Width CV 15.5 % (11.6-14.6); RBC Distribution Width SD 47.3 fl (35.1-43.9); Red Blood Count 5.13 M/mm3 (4.2-5.4); White Blood Count 4.4 K/mm3 (4.4-11.0)
[2022-10-22] MEDS: Ketorolac 15 MG/ML Vial IV (21:14)
[2022-10-22] MEDS: 0.9% Normal Saline 1,000 ML 1000 ML IV (21:14)
[2022-10-22] MEDS: Ondansetron 4 MG/2 ML Vial IV (21:14)
[2022-10-22 21:34] LABS: Anion Gap 5 (5-15); BUN 16 mg/dL (7-18); BUN/Creat Ratio 16.3 RATIO (10-20); Calcium,Total 8.6 mg/dL (8.5-10.1); Chloride 105 mmol/L (98-107); Creatinine, Serum 0.98 mg/dL (0.55-1.02); EST Glomerular Filtration Rate 63 mL/min (>60); Est Glom Filt Rate - Afr Amer 76 mL/min (>60); Estimated Creatinine Clearance 56.67 ml/min; Glucose 183 mg/dL (74-106); Potassium 3.5 mmol/L (3.5-5.1); Sodium Level 140 mmol/L (136-145); Troponin-I HS 8 pg/mL (3.0-54.0)
[2022-10-22 22:41] VITALS: BP 152/87; PULSE 65; RESP 16; O2SAT 100
== END 2022-10-22 22:58 | disposition home or self-care (01) ==
PROVIDERS: Emergency Provider Emergency Medicine; PCP Family Medicine; Visit Provider Emergency Medicine
DX: J10.1 Influenza due to other identified influenza virus with other respiratory manifestations (principal)
CPT/HCPCS: 71045; 80048; 84484; 85025; 87428; 93005; 96361; 96374; 96375; 99282; J2405

== ENCOUNTER 2022-12-08 01:12 | Emergency (ER) | payer OTHER, SELFPAY ==
[2022-12-08 01:13] VITALS: PULSE 79; RESP 17; TEMP 35.8; O2SAT 99; BMI 35.0
--- NOTE | 2022-12-08 01:53 | EDS_ITS ---
HPI History of Present Illness Chief Complaint: Laceration Narrative Narrative: Patient is a 52-year-old female with past medical history of diabetes and hypertension. She is right-hand dominant. She was at work this evening when she was working on a machine that has a sharp metal edge and proximal to her left hand against this causing a small laceration to the dorsal aspect of her left hand. She states the bleeding would not stop at work and secondary to that she had concerned that she may need sutures and therefore comes in for evaluation. She states she is on Plavix but denies any true blood thinners. She states that she cannot receive tetanus update secondary to an allergy [facility] Medical History Asthma Diabetes HTN (hypertension) Home Medications hydrochlorothiazide 12.5 mg capsule 1 tab PO DAILY BLOOD PRESSURE 09/21/16 [History Last Taken Unknown] amlodipine 10 mg tablet 10 mg PO DAILY ANTIPLATELET 30 days ##30 01/25/18 [History Last Taken Unknown] metformin 500 mg tablet 1,000 mg PO BID BLOOD PRESSURE 30 days ##60 01/25/18 [History Last Taken Unknown] aspirin 81 mg tablet,delayed release (Adult Low Dose Aspirin) 81 mg PO DAILY ANTIPLATELET 04/20/19 [History Last Taken Unknown] clopidogrel 75 mg tablet 75 mg PO DAILY 04/20/19 [History Last Taken Unknown] glimepiride 1 mg tablet 1 mg PO DAILY BP 04/20/19 [History Last Taken Unknown] metoprolol tartrate 25 mg tablet 12.5 mg PO BID 04/20/19 [History Last Taken Unknown] methylprednisolone 4 mg tablets in a dose pack 4 mg PO UD ##1 04/21/19 [Rx Last Taken Unknown] clindamycin HCl 300 mg capsule 300 mg PO Q6H #40 caps 07/18/20 [Rx Last Taken Unknown] Allergy/AdvReac Type Severity Reaction Status Date / Time Fish Containing Products Allergy NEEDS Verified 12/08/22 01:18 FOLLOW-UP tetanus and diphtheria Allergy NEEDS Verified 12/08/22 01:18 toxoids FOLLOW-UP Surgical History Ovarian mass Social History Smoking Status: Never smoker alcohol intake: never ROS ROS ED Constitutional Constitutional ED: Denies chills or fever(s) ENT ENT ED: Denies sore throat Cardiovascular Cardiovascular: Denies chest pain Respiratory/Chest Respiratory/Chest: Denies cough or dyspnea Gastrointestinal Gastrointestinal: Denies abdominal pain, diarrhea, nausea or vomiting Genitourinary Genitourinary ED: Denies dysuria Musculoskeletal Musculoskeletal: Reports other Details: Positive left hand pain ; Denies myalgias Integumentary Reports other Details: Positive left hand laceration ; Denies rash Neurologic Neurologic: Denies headache(s) Hematologic/Lymphatic Hematologic/Lymphatic: Reports easy bleeding and easy bruising EXAM Physical Exam Const Vital Signs: 12/08/22 01:13 Temperature 96.5 F L Temperature Source Temporal Pulse Rate 79 Respiratory Rate 17 Pulse Ox 99 Oxygen Delivery Method Nasal Cannula Positive well nourished and well developed General Appearance ED: well developed Eyes PERRL and EOMs intact bilaterally Neck supple Resp normal respiratory effort and clear to auscultation bilaterally Cardio regular rate and regular rhythm Extremity Extremity Narrative: Left upper extremity is neurovascularly intact; AIN/PIN are intact and normal. Patient has a 1.5 cm subcutaneous layer deep linear laceration to the mid dorsal portion of the left hand with minimal ooze of blood and no foreign body. No signs of ligamentous or tendon injury either. Remainder the exam is normal Neuro oriented x3, CN's II-XII intact bilaterally and no sensory deficits noted Sensorium / Orientation: alert Psych mental status grossly normal Skin Skin Narrative: Laceration to the left hand as documented above MDM MDM MDM Narrative Medical decision making narrative: Patient presented to the ER with a simple laceration to her left hand. As it occurred mainly from brushed against a sharp object I do not feel there is need for x-ray as my concern for underlying bony injury or foreign body is low. The patient has an allergy to tetanus and therefore this was not given. The wound was sutured as documented below and as exam does not indicate ligamentous or tendon injury or signs of bony trauma patient is otherwise safe for discharge Patient had the left hand wound cleaned with chlorhexidine. It was anesthetized using 3 mL of 2% lidocaine with epinephrine in local fashion. The wound was copiously irrigated with normal saline. Then three 4 Ethilon sutures were placed in simple interrupted fashion. This brought the wound together good approximation. Patient tolerated procedure well without complication Discharge Plan Triage Chief Complaint: Laceration ED Provider: Andes,Pj Dx/Rx/DC Orders Clinical Impression: Laceration of left hand, Diabetes Instructions: ED Laceration, Hand: All Closures Prescriptions: No Action metformin 500 mg tablet 1,000 mg PO BID 30 Days Qty: 60 Label Comments: amlodipine 10 mg tablet 10 mg PO DAILY 30 Days Qty: 30 Label Comments: take 1 tablet by mouth once daily hydrochlorothiazide 12.5 MG capsule 1 tab PO DAILY clopidogrel 75 MG tablet 75 mg PO DAILY glimepiride 1 MG tablet 1 mg PO DAILY metoprolol tartrate 25 MG tablet 12.5 mg PO BID aspirin [Adult Low Dose Aspirin] 81 MG Tablet.Dr 81 mg PO DAILY methylprednisolone 4 MG tablet 4 mg PO UD Qty: 1 0RF clindamycin HCl 300 MG capsule 300 mg PO Q6H Qty: 40 0RF Primary Care Provider: Jaspreet Henry Referrals: Jaspreet Henry MD [Primary Care Provider] - Activity Restrictions/Additional Instructions: Please return to the ER or follow-up with Work[employer]'s Compensation in 7 to 10 days for suture removal Disposition Disposition: Home, Self Care Discharge Date/Time: 12/08/22 02:23
== END 2022-12-08 02:23 | disposition home or self-care (01) ==
PROVIDERS: Emergency Provider Emergency Medicine; PCP Family Medicine; Visit Provider Emergency Medicine
DX: S61.412A Laceration without foreign body of left hand, initial encounter (principal); E11.9 Type 2 diabetes mellitus without complications; W31.9XXA Contact with unspecified machinery, initial encounter; Y93.89 Activity, other specified; Y99.0 Civilian activity done for income or pay; I10 Essential (primary) hypertension; Z79.02 Long term (current) use of antithrombotics/antiplatelets; Z79.82 Long term (current) use of aspirin; Z79.84 Long term (current) use of oral hypoglycemic drugs; Z79.899 Other long term (current) drug therapy
CPT/HCPCS: 12001; 99281

== ENCOUNTER 2023-03-25 12:31 | Emergency (ER) | payer BC, MEDICAID, SELFPAY ==
[2023-03-25 12:32] VITALS: BP 166/99; PULSE 72; RESP 16; TEMP 36.5; O2SAT 95; BMI 35.9
[2023-03-25] MEDS: Ketorolac 15 MG/ML Vial IM (13:26)
--- NOTE | 2023-03-25 16:44 | ED.VIS.BACK ---
HPI History of Present Illness Chief Complaint: Back Narrative Narrative: 52-year-old female with right gluteal pain. She has a history of sciatica recently diagnosed. Patient was on muscle relaxers and NSAIDs however she is run out of muscle relaxers. She is actually in physical therapy as well and was improving until yesterday when at the grocery store she noted the pain was a great. She had no direct trauma. No loss of bladder or bowel control. No saddle anesthesia or paresthesia. Patient is ambulatory. Denies urinary, vaginal, GI complaints. [facility] Medical History Asthma CVA (cerebral vascular accident) Diabetes HTN (hypertension) Home Medications hydrochlorothiazide 12.5 mg capsule 1 tab PO DAILY BLOOD PRESSURE 09/21/16 [History Last Taken Unknown] amlodipine 10 mg tablet 10 mg PO DAILY ANTIPLATELET 30 days ##30 01/25/18 [History Last Taken Unknown] metformin 500 mg tablet 1,000 mg PO BID BLOOD PRESSURE 30 days ##60 01/25/18 [History Last Taken Unknown] aspirin 81 mg tablet,delayed release (Adult Low Dose Aspirin) 81 mg PO DAILY ANTIPLATELET 04/20/19 [History Last Taken Unknown] clopidogrel 75 mg tablet 75 mg PO DAILY 04/20/19 [History Last Taken Unknown] glimepiride 1 mg tablet 1 mg PO DAILY BP 04/20/19 [History Last Taken Unknown] metoprolol tartrate 25 mg tablet 12.5 mg PO BID 04/20/19 [History Last Taken Unknown] naproxen 500 mg tablet (Naprosyn) 500 mg PO BID PRN pain #20 tabs 03/25/23 [Rx Last Taken Unknown] tizanidine 4 mg capsule (Zanaflex) 4 mg PO Q8H PRN muscle spasticity #20 caps 03/25/23 [Rx Last Taken Unknown] Allergy/AdvReac Type Severity Reaction Status Date / Time Fish Containing Products Allergy NEEDS Verified 03/25/23 12:32 FOLLOW-UP tetanus and diphtheria Allergy NEEDS Verified 03/25/23 12:32 toxoids FOLLOW-UP Surgical History Ovarian mass Status post percutaneous patent foramen ovale closure Social History Smoking Status: Never smoker alcohol intake: current alcohol intake frequency: holidays/special occasions only ROS ROS ED Constitutional Constitutional ED: Denies chills, fever(s) or sweats Eyes Eyes: Denies blurry vision or change in vision ENT ENT ED: Denies ear pain or sore throat Cardiovascular Cardiovascular: Denies chest pain, palpitations or racing heartbeat Respiratory/Chest Respiratory/Chest: Denies cough, dyspnea or sputum Gastrointestinal Gastrointestinal: Denies abdominal pain, constipation, diarrhea, nausea or vomiting Genitourinary Genitourinary ED: Denies dysuria, hematuria or urinary frequency Musculoskeletal Musculoskeletal: Reports back pain; Denies myalgias or neck pain Integumentary Denies abscess, Abrasions or rash Neurologic Neurologic: Denies headache(s), paresthesias or weakness Psychiatric Psychiatric: Denies anxiety, depression, suicidal ideation or suicidal thoughts Endocrine Endocrinology: Denies polydipsia or polyuria EXAM Physical Exam Const Vital Signs: 03/25/23 12:32 Temperature 97.7 F L Temperature Source Temporal Pulse Rate 72 Respiratory Rate 16 Blood Pressure 166/99 H Blood Pressure Mean 121 Pulse Ox 95 Oxygen Delivery Method Room Air Positive well nourished General Appearance ED: NAD HEENT Reports moist mucous membranes Eyes PERRL and EOMs intact bilaterally Resp normal respiratory effort and clear to auscultation bilaterally Cardio regular rate and regular rhythm GI normal to inspection, nondistended, normoactive bowel sounds Extremity Extremity Narrative: Tenderness to palpation in the right gluteal region. Straight leg raise test +10 to 15 degrees. Neuro oriented x3 and no sensory deficits noted Motor Exam: strength 5/5 throughout Psych mental status grossly normal Skin no rashes or lesions noted and no wounds MDM MDM MDM Narrative Medical decision making narrative: Patient presenting with sciatic pain. She is already had x-rays previously. I do not believe she warrants any today. She was given a shot of Toradol and ADD. She started on Naprosyn and tizanidine for home. Follow-up with PCP to ensure resolution. Discharge Plan Triage Chief Complaint: Back Other Complaint: Lower Extremity Injury ED Provider: Sam Nance Dx/Rx/DC Orders Instructions: ED Sciatica Prescriptions: New tizanidine [Zanaflex] 4 mg capsule 4 mg PO Q8H PRN (Reason: muscle spasticity) Qty: 20 0RF naproxen [Naprosyn] 500 mg tablet 500 mg PO BID PRN (Reason: pain) Qty: 20 0RF No Action metformin 500 mg tablet 1,000 mg PO BID 30 Days Qty: 60 Label Comments: amlodipine 10 mg tablet 10 mg PO DAILY 30 Days Qty: 30 Label Comments: take 1 tablet by mouth once daily hydrochlorothiazide 12.5 MG capsule 1 tab PO DAILY clopidogrel 75 MG tablet 75 mg PO DAILY glimepiride 1 MG tablet 1 mg PO DAILY metoprolol tartrate 25 MG tablet 12.5 mg PO BID aspirin [Adult Low Dose Aspirin] 81 MG tablet,delayed release (DR/EC) 81 mg PO DAILY Primary Care Provider: Jaspreet Henry Referrals: Jaspreet Henry MD [Primary Care Provider] - Disposition Disposition: Home, Self Care Discharge Date/Time: 03/25/23 13:48
== END 2023-03-25 13:48 | disposition home or self-care (01) ==
PROVIDERS: Emergency Provider Student in an Organized Health Care Education/Training Program; PCP Family Medicine; Visit Provider Student in an Organized Health Care Education/Training Program
DX: M54.30 Sciatica, unspecified side (principal); E11.9 Type 2 diabetes mellitus without complications; I10 Essential (primary) hypertension; Z79.899 Other long term (current) drug therapy; Z79.84 Long term (current) use of oral hypoglycemic drugs; Z79.82 Long term (current) use of aspirin; Z79.02 Long term (current) use of antithrombotics/antiplatelets; Z86.73 Personal history of transient ischemic attack (TIA), and cerebral infarction without residual deficits
CPT/HCPCS: 96372; 99282

== ENCOUNTER → 2025-04-08 | Outpatient (CLI) | payer BC, SELFPAY ==
--- NOTE | 2025-04-08 07:31 | CT_ITS ---
PROCEDURE: SINUS/FACIAL BONE REASON FOR EXAM: SINUSITIS None. TECHNIQUE: CT of the paranasal sinuses without contrast. Coronal and Sagittal reconstruction series were provided. One or more dose reduction techniques were used (e.g., Automated exposure control, adjustment of the mA and/or kV according to patient size, use of iterative reconstruction technique). CTDI volume: 33.06 mGy DLP: 883.43 mGy cm COMPARISON: None. FINDINGS: Frontal: Clear. Ethmoid: Clear. Sphenoid: Clear. Maxillary: Clear. Turbinates: Unremarkable. Nasal Septum: There is mild nasal septal deviation to the left. There is a small left-sided nasal spur. Mastoids/Middle Ears: There is opacification of the mastoid air cells on the left. The right mastoid air cells and the middle ears are unremarkable. Visualized intracranial contents: There is calcific vascular disease of the intracranial portion of both internal carotid arteries. The brain parenchyma has an unremarkable unenhanced CT appearance. Intraorbital contents: Normal. Calvarium, skull base, mandible, and facial soft tissues: The calvarium skull base and mandible are unremarkable. The temporomandibular joints are normal. There are calcifications within the palatine tonsils consistent with chronic inflammation. There are multiple reactive cervical lymph nodes. CT/Sinus/Facial Bone IMPRESSION: 1. The paranasal sinuses are clear. 2. Left mastoiditis. 3. Other findings as noted. Reading Location: [id number]
--- OUTSIDE RECORDS SUMMARY | 2025-04-08 07:33 | XMS RPT_ITS | CCD ---
Author Organization [facility] CliniSyor Care Team Providers Care Reservation Clerk Name Role Phone PROVIDER, UNKNOWN Attending Unavailable PROVIDER, UNKNOWN Referring Unavailable Jaspreet Davenport Primary Care Unavailable STACEY AMADOR Attending Unavailable CORTEZ FORRESTER Attending Unavailable Jaspreet Davenport Referring Unavailable Jaspreet Davenport Primary Care Unavailable MERARI CAMARILLO Attending Unavailable Jaspreet Davenport Referring Unavailable Jaspreet Davenport Primary Care Unavailable MERARI CAMARILLO Attending Unavailable Jaspreet Davenport Referring Unavailable Jaspreet Davenport Primary Care Unavailable FERNANDO ROSAS Attending Unavailable CORTEZ FORRESTER Referring Unavailable Jaspreet Davenport Primary Care Unavailable Isabel Davenport MD Primary Care Provider Merari Camarillo MD Unavailable Usama Briseno MD, William J Unavailable Tutcaroline REGALADO [place] Unavailable Isabel Davenport MD Primary Care Provider Merari Camarillo MD Unavailable Usama Briseno MD, William J Unavailable Tutcaroline REGALADO [place] Unavailable Isabel Davenport MD Primary Care Provider ISABEL DAVENPORT Primary Care Unavailable SJ MCCARTHY JR Referring Unavailable SJ MCCARTHY JR Referring Unavailable ISABEL DAVENPORT Primary Care Unavailable Isabel Davenport MD Primary Care Provider Merari Camarillo MD Unavailable Usama Briseno MD, Cortez Benjamin Unavailable [phone] [place] REGALADOAntonio Unavailable Kaitlynn MACHADO, Fifi Unavailable [phone] Fifi Calderón MD Unavailable Ethel MACHADO, Isabel Stoner Primary Care Provider [phone] Marquise MACHADO, Merari Unavailable 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, 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 Unavailable ETHEL, ISABEL R Primary Care Unavailable PHYLLIS BERNARDO Attending Unavailable SELF Referring Unavailable KONTAK, ISABEL R Primary Care Unavailable MERARI CAMARILLO Attending Unavailable SELF Referring Unavailable KONTAK, ISABEL R Primary Care Unavailable MERARI CAMARILLO Attending Unavailable DHEERAJTAGenaro, ISABEL R Primary Care Unavailable KONHANNAH, ISABEL R Attending Unavailable ETHEL, ISABEL R Primary Care Unavailable VADIM TEIXEIRA Referring Unavailable ENEIDA LOYOLA Referring Unavailable KONTAK, ISABEL R Primary Care Unavailable KONTAK, ISABEL R Primary Care Unavailable KONTAK, ISABEL R Referring Unavailable KONTAK, ISABEL R Primary Care Unavailable KONTAK, ISABEL R Primary Care Unavailable FERNANDO MOSQUEDA Attending Unavailable KONTAK, ISABEL R Primary Care Unavailable ANTONIO CHRISTINA Attending Unavailable JEMIMA WINN Attending Unavailable ETHEL, ISABEL R Primary Care Unavailable VADIM TEIXEIRA Referring Unavailable DHEERAJTAGenaro, ISABEL R Primary Care Unavailable KONTAK, ISABEL R Referring Unavailable ELIZABETH PEREIRA Attending Unavailable KONTAK, ISABEL R Primary Care Unavailable SELF Referring Unavailable Dandre Melissa Referring UnavailDandre Cardoza Attending UnavailJaspreet Suarez Primary Care Unavailable Allergies Allergy Classification Reported Allergen(s) Allergy Type Date of Onset Reaction(s) Facility (20 sources) TETANUS VACCINES AND TOXOID; Translations: [TETANUS VACCINES AND TOXOID] Propensity to adverse reactions to drug (disorder) 9 [facility] [place] Other [place] Repository (20 sources) Fish; Translations: [FISH CONTAINING PRODUCTS] Drug Allergy 9 [facility], [facility] Work Phone: (1 source) Fish Containing Products Allergy to substance 0 Swelling [facility] Work Phone: (17 sources) Iodine; Translations: [IODINE] Drug Allergy [address] [facility] (17 sources) Shellfish; Translations: [SHELLFISH DERIVED] Drug Allergy 4 Other: See Comments [facility] (1 source) Fish Containing Products Drug allergy (disorder) 3 [facility] Repository (1 source) tetanus and diphtheria toxoids Drug allergy (disorder) 3 [facility] Repository Medications Current Medications Medication Drug Class(es) Dates Sig (Normalized) Sig (Original) amLODIPine 10 mg oral tablet (20 sources) Dihydropyridine Calcium Channel Gato Start: 12-31-2023 End: 05-11-2024 take 1 tablet by mouth once daily amLODIPine (NORVASC) 10 mg tablet Indications: Essential hypertension Take 1 tablet by mouth once daily. 90 tablet 3 05/12/2024 Active Start: 01-25-2018 End: 04-10-2023 take 1 tablet by mouth once daily amLODIPine (NORVASC) 10 mg tablet Indications: Essential hypertension take 1 tablet by mouth once daily 90 tablet 3 04/10/2023 Active Comment on above: take 1 tablet by garry th once daily Take 1 tablet by garry th once daily. amoxicillin 875 mg / clavulanate 125 mg oral tablet (2 sources) Penicillin-class Antibacterial Start: 09-06-20 End: 09-11-20 take 1 tablet by mouth twice daily amoxicillin-clavulan ic acid (AUGMENTIN) 875-125 mg per tablet Take 1 tablet by mouth twice daily for 5 days. 10 tablet 0 09/06/2022 09/11/2022 Active Comment on above: Take 1 tablet by garry th twice daily for 5 days. aspirin 81 mg delayed release oral tablet (20 sources) Platelet Aggregation Inhibitor, Nonsteroidal Anti-inflammatory Drug Start: 04-20-20 take 1 tablet by mouth once daily aspirin, enteric coated (ASPIRIN, ENTERIC COATED) 81 mg EC tablet take 1 tablet by mouth once daily 100 tablet 3 12/27/2020 Active Comment on above: take 1 tablet by garry th once daily atorvastatin 40 mg oral tablet (20 sources) HMG-CoA Reductase Inhibitor Start: 12-31-19 End: 03-14-20 take 1 tablet by mouth once daily atorvastatin (LIPITOR) 40 mg tablet Indications: Essential hypertension Take 1 tablet by mouth once daily. 90 tablet 1 09/15/2024 03/14/2025 Active Start: 11-30-2021 End: 02-15-2023 take 1 tablet by mouth once daily atorvastatin (LIPITOR) 40 mg tablet take 1 tablet by mouth once daily 90 tablet 3 02/15/2023 Active Comment on above: Take 1 tablet by garry th once daily. take 1 tablet by garry th once daily benoxinate hydrochloride 4 mg/ml / fluorescein sodium 3 mg/ml ophthalmic solution (2 sources) Diagnostic Dye Start: 03-28-2024 End: 03-28-2024 fluorescein-benoxi leidy 0.3-0.4 % 1 Drop (FLURESS) Start: 07-12-2022 End: 07-12-2022 fluorescein-benoxinate 0.25- 0.4 % 1 Drop (FLURESS) Blood-Glucose Meter monitoring kit (1 source) Start: 11-13-2022 End: 11-14-2022 Blood-Glucose Meter monitoring kit Glucose Meter of Choice - Kit - Dx: Type 2 DM - Uncontrolled E11.65 1 Each 0 11/13/2022 11/14/2022 Active Comment on above: Glucose Meter of Cho ice - Kit - Dx: Type 2 DM - Uncontrolled E11.65 clindamycin 300 mg oral capsule (1 source) Lincosamide Antibacterial Start: 07-18-2020 take 300 mg by mouth every six hours Clindamycin Hcl Active 300 MG PO EVERY 6 HOURS 40 July 17, 2020 11:00pm clopidogrel 75 mg oral tablet (20 sources) [id number] Platelet Inhibitor Start: 01-08-2023 End: 01-29-2025 take 1 tablet by mouth once daily clopidogrel (PLAVIX) 75 mg tablet Indications: 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, unspecified blood vessel laterality (HCC) take 1 tablet by mouth once daily 360 tablet 3 01/29/2025 Active Start: 04-20-2019 take 1 tablet by garry th once daily clopidogrel (PLAVIX) 75 mg tablet take 1 tablet by mouth once daily 90 tablet 3 01/03/2022 Active Comment on above: take 1 tablet by garry th once daily Take 1 tablet by garry th once daily. docosanol 100 mg/ml topical cream (15 sources) Start: 01-06-20 25 docosanol (ABREVA) 10 % crea Apply to affected area five times a day. 2 g 1 01/05/2025 Active [id number] 0.3 ml EPINEPHrine 1 mg/ml auto-injector (13 sources) alpha-Adrenergic Agonist, beta-Adrenergic Agonist, Catecholamine Start: 01-16-20 25 EPINEPHrine (EPIPEN) 0.3 mg/0.3 mL auto-injector Inject 0.3 mL intramuscularly as needed. 2 Each 01/15/2025 Active fexofenadine hydrochloride 180 mg oral tablet (13 sources) Histamine-1 Receptor Antagonist Start: 01-16-20 25 fexofenadine (DAVID) 180 mg tablet Take 1 tablet daily. Can titrate up to 4 tablets in one day for hives with swelling. Do not exceed 4 tablets in 24 hours. 120 tablet 2 01/15/2025 Active fluticasone propionate 0.05 mg/actuat metered dose nasal spray (19 sources) Corticosteroid Start: 10-21-20 24 take 1-2 spray(s) nasal route once daily fluticasone (FLONASE) 50 mcg/actuation nasal spray instill 1 TO 2 sprays into each nostril once daily if needed 10/21/2024 Active Start: 10-06-2022 take 2 spray(s) by [facility] once daily fluticasone (FLONASE) 50 mcg/actuation nasal spray Use 2 Sprays in each nostril once daily. Rinse mouth after use. 1 Each 0 10/06/2022 Active Comment on above: Use 2 Sprays in each nostril once daily. Rinse mouth after use. hydroCHLOROthiazide 25 mg oral tablet (20 sources) Thiazide Diuretic Start: 023 End: 024 take 1 tablet by mouth once daily hydroCHLOROthiazide 25 mg tablet Indications: Essential hypertension Take 1 tablet by mouth once daily. 90 tablet 3 05/12/2024 Active Start: 11-30-2021 End: 11-30-2022 take 1 tablet by mouth once daily hydroCHLOROthiazide (HYDRODIURIL, ESIDRIX) 25 mg tablet Indications: Essential hypertension Take 1 tablet by mouth once daily. 90 tablet 3 11/30/2021 11/30/2022 Active Start: 09-21-2016 take 1 tablet by garry th once daily Hydrochlorothiazide Active 1 TABLET PO DAILY September 21, 2016 12:00am Comment on above: Take 1 tablet by garry th once daily. levothyroxine sodium 0.05 mg oral tablet (20 sources) l-Thyroxine Start: 06-28-20 End: 01-08-20 take 1 tablet by mouth once daily for thyroid dysfunction levothyroxine (LEVOXYL) 50 mcg tablet Indications: Type 2 diabetes mellitus without complication, without long-term current use of insulin (HCC) , Acquired hypothyroidism Take 1 tablet by mouth once daily. Take on empty stomach. For Thyroid 90 tablet 3 01/08/2024 Active Start: 04-20-2021 End: 03-14-2022 take 1 tablet by mouth once daily for thyroid dysfunction levothyroxine (LEVOXYL) 50 mcg tablet Indications: Acquired hypothyroidism Take 1 tablet by mouth once daily. Take on empty stomach. For Thyroid 30 tablet 5 04/20/2021 03/14/2022 Discontinued Comment on above: Take 1 tablet by garry th once daily. Take on empty stomach. For Thyroid losartan potassium 100 mg oral tablet (20 sources) Angiotensin 2 Receptor Gato Start: 3 End: 5 take 1 tablet by mouth once daily losartan (COZAAR) 100 mg tablet Indications: Essential hypertension take 1 tablet by mouth once daily 360 tablet 3 01/29/2025 Active Start: 08-11-2021 End: 11-20-2022 take 1 tablet by mouth once daily losartan (COZAAR) 50 mg tablet Take 1 tablet by mouth once daily. 180 tablet 2 06/14/2022 11/20/2022 Discontinued Comment on above: take 1 tablet by garry th once daily Take 1 tablet by garry th once daily. metFORMIN hydrochloride 500 mg oral tablet (20 sources) Biguanide Start: 4 End: 4 take 2 tablets by mouth twice daily at mealtime metFORMIN (GLUCOPHAGE) 500 mg tablet Indications: Type 2 diabetes mellitus without complication, without long-term current use of insulin (HCC) Take 2 tablets by mouth two times a day with meals. 360 tablet 3 05/12/2024 Active Start: 10-24-2022 take 2 tablets by mo uth twice daily at mealtime metFORMIN (GLUCOPHAGE) 500 mg tablet Indications: Type 2 diabetes mellitus without complication, without long-term current use of insulin (HCC) take 2 tablets by mouth twice a day with meals 120 tablet 5 10/24/2022 Active Start: 06-28-2022 End: 10-24-2022 take 2 tablets by mouth once daily at breakfast metFORMIN (GLUCOPHAGE) 500 mg tablet Indications: Type 2 diabetes mellitus without complication, without long-term current use of insulin (HCC) Take 2 tablets by mouth daily with breakfast. 0 06/28/2022 10/24/2022 Discontinued Start: 12-21-2021 take 2 tablets by mo uth twice daily at mealtime metFORMIN (GLUCOPHAGE) 500 mg tablet Indications: Type 2 diabetes mellitus without complication, without long-term current use of insulin (HCC) Take 2 tablets by mouth twice daily with meals. 120 tablet 5 12/21/2021 Active Start: 01-25-2018 take 1000 mg by mout twice daily Metformin Active 1000 MG PO TWICE A DAY 60 January 24, 2018 11:00pm Comment on above: Take 2 tablets by mo uth twice daily with meals. Take 2 tablets by mo uth daily with breakfast. take 2 tablets by mo uth twice a day with meals Take 2 tablets by mo uth two times a day with meals. methylPREDNISolone 4 mg oral tablet (1 source) Corticosteroid Start: 2018 Methylprednisolone Active 4 MG PO DIRECTED April 20, 2019 11:00pm 24 hr metoprolol succinate 25 mg extended release oral tablet (20 sources) beta-Adrenergic Gato Start: 2023 take 1 tablet by mouth once daily metoprolol succinate ER (TOPROL XL) 25 mg 24 hr tablet Take 1 tablet by mouth once daily. 90 tablet 3 06/11/2024 Active Start: 06-14-2022 End: 06-11-2024 take 0.5 tablet by mouth twice daily metoprolol tartrate, short acting, (LOPRESSOR) 25 mg tablet Indications: Essential hypertension Take 0.5 tablets by mouth two times a day. 90 tablet 3 05/12/2024 06/11/2024 Discontinued (Course of therapy completed) Start: 12-27-2020 End: 06-14-2022 take 1 tablet by mouth twice daily metoprolol tartrate, short acting, (LOPRESSOR) 25 mg tablet take 1/2 tablet by mouth twice a day 180 tablet 3 12/27/2020 06/14/2022 Discontinued Start: 04-20-2019 take 12.5 mg by mout h twice daily Metoprolol Tartrate Active 12.5 MG PO TWICE A DAY April 19, 2019 11:00pm Comment on above: take 1/2 tablet by m outh twice a day Take 0.5 tablets by mouth twice daily. Take 0.5 tablets by mouth two times a day. Miscellaneous Medical Supply (20 sources) Start: 07-17-2022 Miscellaneous Medical Supply 1 Each once daily. 1 Each 07/17/2022 Active Start: 07-17-2022 Miscellaneous Medical Supply 1 Each once daily. 1 Each 0 07/17/2022 Active Comment on above: 1 Each once daily. MULTIVITAMIN ORAL (20 sources) MULTIVITAMIN ORA L Take by mouth once daily. Active MULTIVITAMIN ORA L Take by mouth once daily. 0 Active Comment on above: Take by mouth once d aily. perflutren lipid microspheres 1.3 mL in NaCl (PF) 0.9% 10 mL injection (DEFINITY) (20 sources) Start: 11-19-2022 End: 02-18-2024 perflutren lipid microspheres 1.3 mL in NaCl (PF) 0.9% 10 mL injection (DEFINITY) Start: 08-02-2022 End: 11-01-2023 perflutren lipid microsphere s 1.3 mL in NaCl (PF) 0.9% 10 mL injection (DEFINITY) phenylephrine hydrochloride 25 mg/ml ophthalmic solution (1 source) alpha-1 Adrenergic Agonist Start: 07-12-2022 End: 07-12-2022 PHENYLephrine 2.5 % 1 Drop (AK-DILATE, IZA-SYNEPHRINE) SITagliptin 50 mg oral tablet (15 sources) Dipeptidyl Peptidase 4 Inhibitor Start: 01-05-2025 take 1 tablet by mouth once daily SITagliptin phosphate (JANUVIA) 50 mg tablet Take 1 tablet by mouth once daily. 30 tablet 11 01/05/2025 Active 125 ml sodium chloride 9 mg/ml prefilled syringe (20 sources) Start: 08-02-2022 End: 02-18-2024 sodium chloride 0.9 % (flush) 10 mL (BD POSIFLUSH) tropicamide 10 mg/ml ophthalmic solution (2 sources) Anticholinergic Start: 03-28-2024 End: 03-28-2024 tropicamide 1 % 1 Drop (MYDRIACYL) Start: 07-12-2022 End: 07-12-2022 tropicamide 1 % 1 Drop (MYDR IACYL) TRUE METRIX GLUCOSE METER (20 sources) Start: 11-13-2022 TRUE METRIX GL UCOSE METER Glucose Meter of Choice - Kit - Dx Type 2 DM - Uncontrolled E11.65 11/13/2022 Active Start: 11-13-2022 TRUE METRIX GL UCOSE METER Glucose Meter of Choice - Kit - Dx Type 2 DM - Uncontrolled E11.65 0 11/13/2022 Active Comment on above: Glucose Meter of Cho ice - Kit - Dx Type 2 DM - Uncontrolled E11.65 Completed/Discontinued Medications Medication Drug Class(es) Dates Sig (Normalized) Sig (Original) acetaminophen 250 mg / aspirin 250 mg / caffeine 65 mg oral tablet (1 source) Platelet Aggregation Inhibitor, Nonsteroidal Anti-inflammatory Drug, Central Nervous System Stimulant, Methylxanthine Start: 09-21-2016 End: 01-25-2018 Aspirin-Acetamino phen-Caffeine Discontinued 1 EACH PO DAILY September 21, 2016 12:00am January 25, 2018 10:22am acetaminophen 325 mg / HYDROcodone bitartrate 5 mg oral tablet (1 source) Opioid Agonist Start: 07-18-2020 End: 07-20-2020 take 1 tablet by mouth every four hours as needed Hydrocodone-Aceta minophen Discontinued 1 TABLET PO EVERY 4 HOURS NEEDED 14 July 18, 2020 July 19, 2020 11:03pm benzonatate 100 mg oral capsule (11 sources) Non-narcotic Antitussive Start: 10-06-2022 take 2 capsules by mouth every eight hours as needed benzonatate (TESSALON PERLES) 100 mg capsule Take 2 capsules by mouth three times daily as needed. 30 capsule 0 10/06/2022 Active Start: 09-06-2022 take 1 capsule by mo ut every eight hours as needed benzonatate (TESSALON PERLES) 100 mg capsule Take 1 capsule by mouth three times daily as needed for cough. 12 capsule 0 09/06/2022 Active Comment on above: Take 1 capsule by mo [facility] three times daily as needed for cough. Take 2 capsules by [facility] three times daily as needed. cyclobenzaprine hydrochloride 10 mg oral tablet (13 sources) Muscle Relaxant Start: 2022 End: 2023 take 1 tablet by mouth once daily at bedtime cyclobenzaprine (FLEXERIL) 10 mg tablet Indications: Primary osteoarthritis of right hip Take 1 tablet by mouth daily at bedtime. 15 tablet 0 01/29/2023 01/08/2024 Discontinued Comment on above: Take 1 tablet by garry th daily at bedtime. diazePAM 10 mg oral tablet (4 sources) Benzodiazepine Start: 2021 End: 2021 take 1 tablet by mouth every hour diazePAM (VALIUM) 10 mg tablet take 1 tablet by mouth 1 hour PRIOR TO MRI APPOINTMENT 0 03/27/2022 07/21/2022 Discontinued Comment on above: take 1 tablet by garry th 1 hour PRIOR TO MRI APPOINTMENT escitalopram 10 mg oral tablet (1 source) Serotonin Reuptake Inhibitor Start: 2021 End: 2021 take 1 tablet by mouth once daily escitalopram oxalate (LEXAPRO) 10 mg tablet take 1 tablet by mouth once daily 90 tablet 0 12/06/2021 02/18/2022 Discontinued Comment on above: take 1 tablet by garry th once daily glimepiride 2 mg oral tablet (5 sources) Sulfonylurea Start: 2021 End: 2021 take 1 tablet by mouth once daily at breakfast for diabetes mellitus glimepiride (AMARYL) 2 mg tablet Indications: Type 2 diabetes mellitus without complication, without long-term current use of insulin (HCC) Take 1 tablet by mouth daily with breakfast. For diabetes 30 tablet 11 06/28/2022 07/21/2022 Discontinued Start: 04-20-2019 take 1 mg by mouth once daily Glimepiride Active 1 MG PO DAILY April 19, 2019 11:00pm Comment on above: Take 1 tablet by garry th daily with breakfast. For diabetes hydrOXYzine hydrochloride 50 mg oral tablet (13 sources) Antihistamine Start: 02-19-20 End: 07-21-20 take 0.5 tablet by mouth three times daily hydrOXYzine HCl (ATARAX) 50 mg tablet Take 0.5 tablets by mouth three times daily. 30 tablet 0 02/18/2022 07/21/2022 Discontinued Comment on above: Take 0.5 tablets by mouth three times daily. predniSONE 10 mg oral tablet (13 sources) Start: 01-30-20 End: 01-08-20 predniSONE (DELTASONE) 10 mg tablet Indications: Primary osteoarthritis of right hip 6 tabs po day 1, then 5 tabs day 2, 4 tabs day 3, 3 tabs day 4, 2 tabs day 5, 1 tab day 6. 21 tablet 0 01/29/2023 01/08/2024 Discontinued Comment on above: 6 tabs po day 1, the n 5 tabs day 2, 4 tabs day 3, 3 tabs day 4, 2 tabs day 5, 1 tab day 6. triamcinolone acetonide 0.70907 mg/mg topical ointment (13 sources) Corticosteroid Start: 02-19-20 End: 07-21-20 triamcinolone (KENALOG) 0.025 % ointment Apply to affected area three times daily. 80 g 1 02/18/2022 07/21/2022 Discontinued Comment on above: Apply to affected ar ea three times daily. 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; Translations: [Occipital cerebral infarction] Onset: 01-16-2019 03-10-2019 Chronic Adjustment disorders (1 source) Bereavement; Translations: [Adjustment disorder, unspecified] 01-05-2025 Chronic Allergic reactions (4 sources) Inflammatory dermatosis; Translations: [Dermatitis, unspecified] Episodic Asthma (20 sources) Unspecified asthma, uncomplicated; Translations: [Asthma] Onset: 09-27-2009 09-27-2009 Chronic Blindness and vision defects (20 sources) Bilateral visual impairment; Translations: [Unqualified visual loss, both eyes] Onset: 01-27-2019 01-27-2019 Chronic Cardiac and circulatory congenital anomalies (20 sources) Atrial septal defect; Translations: [Patent foramen ovale] Onset: 01-19-2019 Resolved: 12-25-2022 01-23-2020 Chronic Diabetes mellitus without complication (20 sources) Type 2 diabetes mellitus without complications; Translations: [Diabetes mellitus] Onset: 10-10-2016 03-31-2021 Chronic Diseases of mouth; excluding dental (1 source) Oral lesion; Translations: [Unspecified lesions of oral mucosa] 01-05-2025 Episodic Disorders of lipid metabolism (20 sources) Mixed hyperlipidemia; Translations: [Mixed hyperlipidemia] Onset: 06-08-2022 Chronic Disorders usually diagnosed in infancy, childhood, or adolescence (20 sources) Adult attention deficit hyperactivity disorder ; Translations: [Other specified behavioral and emotional disorders with onset usually occurring in childhood and adolescence] Onset: 10-23-2011 10-23-2011 Chronic Essential hypertension (20 sources) Essential (primary) hypertension; Translations: [Essential hypertension] Onset: 10-06-2008 09-26-2016 Chronic Fluid and electrolyte disorders (2 sources) Hypokalemia; Translations: [Hypokalemia] Onset: 01-19-2019 Episodic Heart valve disorders (2 sources) Nonrheumatic aortic (valve) insufficiency; Translations: [Nonrheumatic aortic (valve) insufficiency] Onset: 01-19-2019 Chronic Influenza (1 source) Influenza due to Influenza A virus; Translations: [Influenza due to other identified influenza virus with other respiratory manifestations] Episodic Mood disorders (20 sources) Depressive disorder; Translations: [Depression] Onset: 05-12-2020 05-12-2020 Chronic Osteoarthritis (1 source) Osteoarthritis of right hip joint; Translations: [Unilateral primary osteoarthritis, right hip] Chronic Other aftercare (2 sources) 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 hypoglycemic drugs; Translations: [retirement (current) use of oral hypoglycemic drugs] Onset: 01-19-2019 Other circulatory disease (14 sources) History of cardiovascular surgery; Translations: [Presence of other cardiac implants and grafts] 01-16-2025 Chronic Other gastrointestinal disorders (2 sources) Occult blood in stools; Translations: [Other fecal abnormalities] 03-09-2025 Episodic Other gastrointestinal disorders (1 source) Other fecal abnormalities; Translations: [Positive fecal occult blood test] Onset: 03-09-2025 Episodic Other injuries and conditions due to external causes (1 source) Angioedema; Translations: [Angioneurotic edema, initial encounter] 01-15-2025 Episodic Other lower respiratory disease (2 sources) Cough; Translations: [Acute cough] 11-11-2024 Episodic Other non-traumatic joint disorders (1 source) Chronic pain of right upper limb; Translations: [Pain in right shoulder] Episodic Other non-traumatic joint disorders (1 source) Pain in right hip joint; Translations: [Pain in right hip] Episodic Other nutritional; endocrine; and metabolic disorders (20 sources) Obesity; Translations: [Obesity, unspecified] Onset: 10-06-2008 06-10-2019 Chronic Other screening for suspected conditions (not mental disorders or infectious disease) (13 sources) Patient encounter status; Translations: [Encounter for screening mammogram for malignant neoplasm of breast] Onset: 02-27-2025 Episodic Other upper respiratory infections (1 source) Other chronic sinusitis; Translations: [Other chronic sinusitis] Onset: 04-06-2025 Chronic Other upper respiratory infections (2 sources) Acute maxillary sinusitis; Translations: [Acute maxillary sinusitis, unspecified] Episodic Spondylosis; intervertebral disc disorders; other back problems (1 source) Inflammation of sacroiliac joint; Translations: [Sacroiliitis, not elsewhere classified] Chronic Thyroid disorders (20 sources) Acquired hypothyroidism; Translations: [Hypothyroidism, unspecified] Onset: 04-20-2021 04-20-2021 Chronic Unclassified (1 source) NO SHOW 01-04-2024 Unclassified (1 source) PFO (patent foramen ovale) (HCC); Translations: [PFO (patent foramen ovale) (HCC)] Onset: 01-16-2025 Unclassified (1 source) Acute cough; Translations: [Acute cough] Onset: 11-11-2024 Past or Other Problems Problem Classification Problem Date Documented Date Episodic/Chronic Blindness and vision defects (20 sources) Diplopia; Translations: [Homonymous bilateral field defects, left side] Onset: 01-16-2019 Episodic Diabetes mellitus without complication (20 sources) Impaired fasting glycemia; Translations: [Impaired fasting glucose] Onset: 04-28-2009 04-28-2009 Episodic Disorders of teeth and jaw (20 sources) Jaw pain; Translations: [Jaw pain] Onset: 05-12-2020 05-12-2020 Episodic Immunizations and screening for infectious disease (2 sources) Suspected disease caused by 2019-nCoV; Translations: [Suspected COVID-19 virus infection] Onset: 04-14-2024 Episodic Other acquired deformities (20 sources) Leg length inequality; Translations: [Unequal limb length (acquired), unspecified site] Onset: 02-05-2023 Episodic Other circulatory disease (20 sources) History of cerebrovascular accident; Translations: [Personal history of transient ischemic attack (TIA), and cerebral infarction without residual deficits] Onset: 05-12-2020 05-12-2020 Episodic Other circulatory disease (1 source) Personal history of transient ischemic attack (TIA), and cerebral infarction without residual deficits; Translations: [History of CVA (cerebrovascular accident)] Onset: 06-11-2024 Episodic Other connective tissue disease (20 sources) Calcaneal spur; Translations: [Calcaneal spur, unspecified foot] Onset: 09-22-2008 09-22-2008 Episodic Other connective tissue disease (20 sources) Ganglion of joint; Translations: [Ganglion, unspecified site] Onset: 10-21-2008 04-28-2009 Episodic Other connective tissue disease (20 sources) Pain in left foot; Translations: [Pain in left foot] Onset: 08-17-2015 08-17-2015 Episodic Other connective tissue disease (20 sources) Pain in right foot; Translations: [Pain in right foot] Onset: 08-17-2015 08-17-2015 Episodic Other connective tissue disease (20 sources) 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; Translations: [Plantar fascial fibromatosis] Onset: 04-16-2017 04-16-2017 Episodic Other female genital disorders (20 sources) Mass of uterine adnexa; Translations: [Other specified conditions associated with female genital organs and menstrual cycle] Onset: 04-29-2013 04-29-2013 Episodic Other lower respiratory disease (20 sources) Snoring; Translations: [Snoring] Onset: 05-12-2020 05-12-2020 Episodic Other nervous system disorders (20 sources) Abnormal gait; Translations: [Unspecified abnormalities of gait and mobility] Onset: 04-27-2010 04-27-2010 Episodic Other non-traumatic joint disorders (20 sources) Shoulder joint pain; Translations: [Pain in unspecified shoulder] Onset: 09-05-2012 09-05-2012 Episodic Residual codes; unclassified (20 sources) Family history of sleep apnea; Translations: [Family history of epilepsy and other diseases of the nervous system] Onset: 05-12-2020 05-12-2020 Episodic Spondylosis; intervertebral disc disorders; other back problems (20 sources) Low back pain; Translations: [Bilateral low back pain without sciatica] Onset: 08-17-2015 08-17-2015 Episodic Transient cerebral ischemia (20 sources) Transient cerebral ischemic attack, unspecified; Translations: [Transient cerebral ischemia] Onset: 01-16-2019 Resolved: 03-10-2019 03-10-2019 Chronic Unclassified (1 source) Patient encounter status 01-05-2025 Results Test Name Value Interpretation Reference Range Facility [facility] 03-13-[address] [facility] Telephone ([facility]) -- MARTHA VENEGAS ([id number]) 1970 F Date Time Provider Department 03/13/25 ISABEL DAVENPORT WANDER During your visit today, we recorded the following information about you: Shelia Terrazas MA 03/13/2025 11:41 AM Signed [facility] paperwork faxed today. Allergies As of Date: 03/13/2025 Noted Allergy Reaction FISH CONTAINING PRODUCTS 04/29/2019 4 - Hives 7 - Swelling IODINE 08/14/2024 16 - Unknown SHELLFISH DERIVED 08/14/2024 14 - Other: See Comments TETANUS VACCINES AND TOXOID 04/30/2009 Comments: Local Reaction Date Reviewed: 03/09/2025 Reviewed by: Marlen Mayers, RN - Fully Assessed Prescriptions as of 03/13/2025 - losartan (COZAAR) 100 mg tablet take 1 tablet by mouth once daily - clopidogrel (PLAVIX) 75 mg tablet take 1 tablet by mouth once daily - EPINEPHrine (EPIPEN) 0.3 mg/0.3 mL auto-injector Inject 0.3 mL intramuscularly as needed. - fexofenadine (DAVID) 180 mg tablet Take 1 tablet daily. Can titrate up to 4 tablets in one day for hives with swelling. Do not exceed 4 tablets in 24 hours. - fluticasone (FLONASE) 50 mcg/actuation nasal spray instill 1 TO 2 sprays into each nostril once daily if needed - SITagliptin phosphate (JANUVIA) 50 mg tablet Take 1 tablet by mouth once daily. - docosanol (ABREVA) 10 % crea Apply to affected area five times a day. - atorvastatin (LIPITOR) 40 mg tablet Take 1 tablet by mouth once daily. - metoprolol succinate ER (TOPROL XL) 25 mg 24 hr tablet Take 1 tablet by mouth once daily. - hydroCHLOROthiazide 25 mg tablet Take 1 tablet by mouth once daily. - amLODIPine (NORVASC) 10 mg tablet Take 1 tablet by mouth once daily. - metFORMIN (GLUCOPHAGE) 500 mg tablet Take 2 tablets by mouth two times a day with meals. - levothyroxine (LEVOXYL) 50 mcg tablet Take 1 tablet by mouth once daily. Take on empty stomach. For Thyroid - blood sugar diagnostic (BLOOD GLUCOSE TEST) test strip Test blood sugar(s) 2 times daily. Dx: Type 2 DM - Uncontrolled E11.65 Insulin: No - Lancets lancets Test blood sugar(s) 2 times daily. Dx: Type 2 DM - Uncontrolled E11.65 Insulin: No - TRUE METRIX GLUCOSE METER Glucose Meter of Choice - Kit - Dx Type 2 DM - Uncontrolled E11.65 - Miscellaneous Medical Supply 1 Each once daily. - MULTIVITAMIN ORAL Take by mouth once daily. - aspirin, enteric coated (ASPIRIN, ENTERIC COATED) 81 mg EC tablet take 1 tablet by mouth once daily Problem List As Of Date 03/13/2025 Noted Resolved CALCANEAL SPUR [M77.30] 09/22/2008 Primary hypertension [I10] 10/06/2008 Class 2 obesity with body mass index (BMI) of 3*10/06/2008 GANGLION OF JOINT [M67.40] 10/21/2008 IMPAIRED FASTING GLUCOSE [R73.01] 04/28/2009 Asthma [J45.909] 09/27/2009 Abnormality of Gait [R26.9] 04/27/2010 Attention deficit disorder of adult [F98.8] 10/23/2011 Pain in joint, shoulder region [M25.519] 09/05/2012 Adnexal mass [N94.89] 04/29/2013 Pain in left foot [M79.672] 08/17/2015 Pain in right foot [M79.671] 08/17/2015 Bilateral low back pain without sciatica [M54.5*08/17/2015 Diabetes mellitus (HCC) [E11.9] 10/10/2016 Plantar fascial fibromatosis of both feet [M72.*04/16/2017 TIA (transient ischemic attack) [G45.9] 01/16/2019 03/10/2019 Visual loss, both eyes [H54.3] 01/27/2019 Occipital stroke (HCC) [I63.9] 01/16/2019 PFO (patent foramen ovale) [Q21.12] 01/23/2020 Jaw pain [R68.84] 05/12/2020 History of stroke [Z86.73] 05/12/2020 Snoring [R06.83] 05/12/2020 Family history of sleep apnea [Z82.0] 05/12/2020 Depression [F32.A] 05/12/2020 Preop cardiovascular exam [Z01.810] 03/31/2021 Acquired hypothyroidism [E03.9] 04/20/2021 Hypertension [I10] 06/08/2022 Mixed hyperlipidemia [E78.2] 06/08/2022 Stroke (cerebrum) (HCC) [I63.9] 07/21/2022 Leg length discrepancy [M21.70] 02/05/2023 Low vision right eye category 1, low vision lef*04/08/2024 Homonymous hemianopsia, left [H53.462] 04/08/2024 Presbyopia [H52.4] 04/08/2024 Status post placement of implantable loop recor* Encounter Status:Closed by SHELIA TERRAZAS on 03/13/25 Normal [facility] ANES POSTPROC EVALon 025 ANES POSTPROC EVAL HNO ID: [id number] Author: SUNITHA MOYA APRN.CRNA Service: Anesthesiology Author Type: Nurse Inverform Machine Operator Type: Anesthesia Postprocedure Evaluation Filed: 03/09/2025 09:26 Note Text: POST ANESTHESIA EVALUATION NOTE : 1970 Procedure Summary Date: 03/09/25 Room / Location: Ambulatory Surgery Anesthesia Start: 846 Anesthesia Stop: 924 Procedure: COLONOSCOPY DIAGNOSTIC Diagnosis: Positive fecal occult blood test Scheduled Providers: Jemima Winn MD; Katie Meade RN; Vadim Ruiz Tech Responsible Provider: Sunitha Moya APRN.ORDER FILLER Anesthesia Type: MAC ASA Status: 2 Anesthesia Type: MAC Last Vitals Vitals Value Taken Time BP 140/85 03/09/25 0925 Temp 03/09/25 0925 Pulse 62 03/09/25 0925 Resp 26 03/09/25 0925 SpO2 100 03/09/25 0925 Post Anesthesia Patient Status Patient Evaluation: bedside. Anticipated Disposition: phase 2 then home. Neurological Status: aware and responsive. Pulmonary Status: breathing comfortably on room air Airway Control: returned to baseline unsupported. Cardiovascular Status: stable. Pain Management: clinically adequate Postoperative Hydration: acceptable. Intraoperative Events: no significant anesthesia events Post Operative Nausea/Vomiting Status: no significant post operative nausea or vomiting Recommendation: continue current plan of care. Anesthesia Observations No Documentation SIGNATURE: Sunitha Moya APRN.ORDER FILLER PATIENT NAME: Martha Venegas DATE: March 09, 2025 TIME: 9:25 AM CSN: [id number] Normal [facility] ANES PRE-OPon 03-09-2025 ANES PRE-OP HNO ID: [id number] Author: SUNITHA MOYA APRN.CRNA Service: Anesthesiology Author Type: Nurse Inverform Machine Operator Type: Anesthesia Preprocedure Evaluation Filed: 03/09/2025 09:00 Note Text: ANESTHESIOLOGY DAY OF SURGERY NOTE : 1970 Procedure Information Anesthesia Start Date/Time: 03/09/25 0847 Scheduled providers: Jemima Winn MD; Katie Meade RN; Vadim Ruiz Tech Procedure: COLONOSCOPY DIAGNOSTIC Location: Ambulatory Surgery Estimated body mass index is 33.99 kg/m? as calculated from the following: Height as of 02/16/25: 162.6 cm (5' 4). Weight as of 02/16/25: 89.8 kg (198 lb). Most recent hematocrit and potassium results: Hematocrit 39.2 01/02/2025 Potassium 3.6 04/14/2024 Relevant Problems CARDIO (+) Hypertension (+) Primary hypertension ENDO (+) Acquired hypothyroidism NEURO-PSYCH (+) History of stroke (+) Stroke (cerebrum) ([facility]) PULMONARY (+) Asthma (HCC) Cardiovascular (+) PFO (patent foramen ovale) ([facility]) I - PHYSICAL EVALUATION AIRWAY Patient intubated: No. Tracheostomy tube not present Mallampati: II. TM distance: >3 FB. Neck ROM: full ROM without neurological symptoms. Mouth opening: adequate. Short neck: no. Thick neck: no DENTAL Dental findings: teeth intact. Additional exam findings: yes. CARDIOVASCULAR Normal cardiovascular observations. PULMONARY Normal pulmonary observations. II - ANESTHESIA PLAN ASA Score: 2 Anesthetic Plan: MAC The patient is not a current smoker. NPO Status: adequate Beta Gato Administration of chronic beta gato medication not planned. (pt on home BB therapy) Monitoring Plan Monitoring plan: standard ASA. Post Procedure Analgesic Plan Postoperative analgesic plan: per surgical service. Informed Consent Anesthetic risks, benefits, alternatives, personnel and consent discussed: yes. Patient / Responsible Libertarian agrees to proceed: yes Patient / Surrogate agrees to blood products: blood products not planned DNR status not reviewed with patient and/or family prior to surgery. Significant changes in the patient condition since the History and Physical, not otherwise documented in primary service progress note: no. Potential Anesthesia issues that may suggest increased risk of complications or contraindication to planned procedure: none. Vitals Value Taken Time BP 138/75 03/09/25 0844 Pulse 59 03/09/25 0844 Resp 12 03/09/25 0844 Temp SpO2 97 % 03/09/25 0844 Outpatient Medications as of 03/09/2025 Medication Sig losartan (COZAAR) 100 mg tablet take 1 tablet by mouth once daily metoprolol succinate ER (TOPROL XL) 25 mg 24 hr tablet Take 1 tablet by mouth once daily. hydroCHLOROthiazide 25 mg tablet Take 1 tablet by mouth once daily. amLODIPine (NORVASC) 10 mg tablet Take 1 tablet by mouth once daily. metFORMIN (GLUCOPHAGE) 500 mg tablet Take 2 tablets by mouth two times a day with meals. aspirin, enteric coated (ASPIRIN, ENTERIC COATED) 81 mg EC tablet take 1 tablet by mouth once daily clopidogrel (PLAVIX) 75 mg tablet take 1 tablet by mouth once daily EPINEPHrine (EPIPEN) 0.3 mg/0.3 mL auto-injector Inject 0.3 mL intramuscularly as needed. fexofenadine (DAVID) 180 mg tablet Take 1 tablet daily. Can titrate up to 4 tablets in one day for hives with swelling. Do not exceed 4 tablets in 24 hours. fluticasone (FLONASE) 50 mcg/actuation nasal spray instill 1 TO 2 sprays into each nostril once daily if needed SITagliptin phosphate (JANUVIA) 50 mg tablet Take 1 tablet by mouth once daily. docosanol (ABREVA) 10 % crea Apply to affected area five times a day. atorvastatin (LIPITOR) 40 mg tablet Take 1 tablet by mouth once daily. levothyroxine (LEVOXYL) 50 mcg tablet Take 1 tablet by mouth once daily. Take on empty stomach. For Thyroid blood sugar diagnostic (BLOOD GLUCOSE TEST) test strip Test blood sugar(s) 2 times daily. Dx: Type 2 DM - Uncontrolled E11.65 Insulin: No Lancets lancets Test blood sugar(s) 2 times daily. Dx: Type 2 DM - Uncontrolled E11.65 Insulin: No TRUE METRIX GLUCOSE METER Glucose Meter of Choice - Kit - Dx Type 2 DM - Uncontrolled E11.65 Miscellaneous Medical Supply 1 Each once daily. MULTIVITAMIN ORAL Take by mouth once daily. (Patient not taking: Reported on 02/16/2025) Facility-Administered Medications as of 03/09/2025 Medication Dose Route Frequency lidocaine HCl (PF) 20 mg/mL (2 %) injection INTRAVENOUS PRN propofol infusion (DIPRIVAN) INTRAVENOUS X (ONE-STEP ONLY) CONTINUOUS PRN propofol injection (DIPRIVAN) INTRAVENOUS PRN NaCl 0.9% iv infusion INTRAVENOUS X (ONE-STEP ONLY) CONTINUOUS PRN I have interviewed and examined the patient. I have reviewed the medical record and/or the pre-anesthesia evaluation, pertinent labs, and test results. This contains updated information obtained within 48 hours of Surgery/Procedure. SIGNATURE: Sunitha Moya APRN.ORDER FILLER PATIENT NAME: Martha Venegas DATE: March 09, 2025 (more content not included)... Normal [facility] Colonoscopyon 03-09-2025 Colonoscopy [facility] Gastroenterology Gastrointestinal Endoscopy Patient Name: Martha Venegas Procedure Date: 03/09/2025 8:41 AM Date of : 1970 Admit Type: Outpatient Age: 54 Room: [facility] 1 Gender: Female Note Status: Training Program Manager Override Attending MD: Jemima Winn MD, [id number] Procedure: Colonoscopy Indications: Positive fecal immunochemical test Providers: Jemima Winn MD Patient Profile: This is a 54 year old female. Refer to note in patient chart for documentation of history and physical. Last Colonoscopy: none. The patient's first colonoscopy is today. Referring Physician: Vadim Lau (Referring MD) Medicines: Monitored Anesthesia Care Complications: No immediate complications. Requesting Provider: Procedure: Pre-Anesthesia Assessment: - Prior to the procedure, a History and Physical was performed, and patient medications and allergies were reviewed. The patient's tolerance of previous anesthesia was also reviewed. The risks and benefits of the procedure and the sedation options and risks were discussed with the patient. All questions were answered, and informed consent was obtained. Prior Anticoagulants: The patient has taken no anticoagulant or antiplatelet agents. ASA Grade Assessment: II - A patient with mild systemic disease. After reviewing the risks and benefits, the patient was deemed in satisfactory condition to undergo the procedure. - Prior to the procedure, a History and Physical was performed, and patient medications, allergies and sensitivities were reviewed. The patient's tolerance of previous anesthesia was reviewed. - The risks and benefits of the procedure and the sedation options and risks were discussed with the patient. All questions were answered and informed consent was obtained. - Patient identification and proposed procedure were verified prior to the procedure by the physician and the nurse. The procedure was verified in the pre-procedure area. After I obtained informed consent, the scope was passed under direct vision. Throughout the procedure, the patient's blood pressure, pulse, and oxygen saturations were monitored continuously. The Colonoscope was introduced through the anus and advanced to the terminal ileum, with identification of the appendiceal orifice and IC valve. I was present and participated during the entire procedure, including non-bradshaw portions, and during the administration and monitoring of Moderate Sedation. The colonoscopy was performed without difficulty. The patient tolerated the procedure well. The quality of the bowel preparation was evaluated using the BBPS ([place] Bowel Preparation Scale) with scores of: Right Colon = 1 (portion of mucosa seen, but other areas not well seen due to staining, residual stool and/or opaque liquid), Transverse Colon = 2 (minor amount of residual staining, small fragments of stool and/or opaque liquid, but mucosa seen well) and Left Colon = 1 (portion of mucosa seen, but other areas not well seen due to staining, residual stool and/or opaque liquid). The total BBPS score equals 4. The quality of the bowel preparation was fair. Scope Withdrawal Time: 0 hours 19 minutes 3 seconds Moderate Sedation: MAC anesthesia was administered by the anesthesia team. Findings: The perianal and digital rectal examinations were normal. Pertinent negatives include no palpable rectal lesions. The terminal ileum appeared normal. A large amount of liquid semi-solid stool was found in the entire colon, making visualization difficult. Lavage of the area was performed using a large amount of sterile water, resulting in clearance with fair visualization. A few medium-mouthed and small-mouthed diverticula were found in the sigmoid colon. Non-bleeding internal hemorrhoids were found during endoscopy. The hemorrhoids were small and Grade I (internal hemorrhoids that do not prolapse). Impression: - Preparation of the colon was fair. - The examined portion of the ileum was normal. - Stool in the entire examined colon. - Diverticulosis in the sigmoid colon. - Non-bleeding internal hemorrhoids. - No specimens collected. Recommendation: - Discharge patient to home (ambulatory). - Patient has a contact number available for emergencies. The signs and symptoms of potential delayed complications were discussed with the patient. Return to normal activities tomorrow. Written discharge instructions were provided to the patient. - Resume previous diet. - Continue present medications. - Repeat colonoscopy in 1 year because the bowel preparation was suboptimal. - Recommend 2 day prep with 8L of Golytely for next procedure. - The findings and recommendations were discussed with the patient. Procedure Code(s): --- Professional --- 71535, Colonoscopy, flexible; diagnostic, including (more content not included)... Normal [facility] Flexible sigmoidoscopy study on 03-09-2025 [facility] Gastroenterology Gastrointestinal Endoscopy Patient Name: Martha Venegas Procedure Date: 03/09/2025 8:41 AM Date of : 1970 Admit Type: Outpatient Age: 54 Room: [place] [address] Gender: Female Note Status: Finalized Attending MD: Jemima Winn MD, [id number] Procedure: Colonoscopy Indications: Positive fecal immunochemical test Providers: Jemima Winn MD Patient Profile: This is a 54 year old female. Refer to note in patient chart for documentation of history and physical. Last Colonoscopy: none. The patient's first colonoscopy is today. Referring Physician: Vaidm Lau (Referring MD) Medicines: Monitored Anesthesia Care Complications: No immediate complications. Requesting Provider: Procedure: Pre-Anesthesia Assessment: - Prior to the procedure, a History and Physical was performed, and patient medications and allergies were reviewed. The patient's tolerance of previous anesthesia was also reviewed. The risks and benefits of the procedure and the sedation options and risks were discussed with the patient. All questions were answered, and informed consent was obtained. Prior Anticoagulants: The patient has taken no anticoagulant or antiplatelet agents. ASA Grade Assessment: II - A patient with mild systemic disease. After reviewing the risks and benefits, the patient was deemed in satisfactory condition to undergo the procedure. - Prior to the procedure, a History and Physical was performed, and patient medications, allergies and sensitivities were reviewed. The patient's tolerance of previous anesthesia was reviewed. - The risks and benefits of the procedure and the sedation options and risks were discussed with the patient. All questions were answered and informed consent was obtained. - Patient identification and proposed procedure were verified prior to the procedure by the physician and the nurse. The procedure was verified in the pre-procedure area. After I obtained informed consent, the scope was passed under direct vision. Throughout the procedure, the patient's blood pressure, pulse, and oxygen saturations were monitored continuously. The Colonoscope was introduced through the anus and advanced to the terminal ileum, with identification of the appendiceal orifice and IC valve. I was present and participated during the entire procedure, including non-bradshaw portions, and during the administration and monitoring of Moderate Sedation. The colonoscopy was performed without difficulty. The patient tolerated the procedure well. The quality of the bowel preparation was evaluated using the BBPS ([place] Bowel Preparation Scale) with scores of: Right Colon = 1 (portion of mucosa seen, but other areas not well seen due to staining, residual stool and/or opaque liquid), Transverse Colon = 2 (minor amount of residual staining, small fragments of stool and/or opaque liquid, but mucosa seen well) and Left Colon = 1 (portion of mucosa seen, but other areas not well seen due to staining, residual stool and/or opaque liquid). The total BBPS score equals 4. The quality of the bowel preparation was fair. Scope Withdrawal Time: 0 hours 19 minutes 3 seconds Moderate Sedation: MAC anesthesia was administered by the anesthesia team. Findings: The perianal and digital rectal examinations were normal. Pertinent negatives include no palpable rectal lesions. The terminal ileum appeared normal. A large amount of liquid semi-solid stool was found in the entire colon, making visualization difficult. Lavage of the area was performed using a large am (more content not included)... [facility] Radiology Study observation (narrative) [facility] HISTORY PHYSICALon HISTORY PHYSICAL HNO ID: [id number] Author: JEMIMA WINN MD Service: Gastroenterology Author Type: Physician Type: H&P Filed: 03/09/2025 08:41 Note Text: ENDO HISTORY AND PHYSICAL EXAMINATION SHORT FORM EVALUATION DATE: 03/09/2025 EVALUATION TIME: 8:40 AM CHIEF COMPLAINT: Stool Guaiac Positive HPI: This is a 54 year old female who presents with Positive immunochemical fecal occult blood. 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 PAST SURGICAL HISTORY: PAST SURGICAL HISTORY Procedure Laterality Date OOPHORECTOMY PARTIAL/TOTAL UNI/BI 2006 Right PAST SURGICAL HISTORY OF 2007 Excision abdominal mass PAST SURGICAL HISTORY OF 10/14/2008 right foot soft tissue mass excision PAST SURGICAL HISTORY OF 11/03/2010 Left planter fasciotomy PAST SURGICAL HISTORY OF 12/11/2022 PFO VAGINAL HYSTERECTOMY UTERUS 250 GM/< 2007 Hysterectomy, vaginal XTRNL PT ACTIV ECG TRANSMIS W/GABRIELE SOCIAL HISTORY: Social History Tobacco Use Smoking status: Never Smokeless tobacco: Never Vaping Use Vaping status: Never Used Substance Use Topics Alcohol use: Yes Comment: rare Drug use: No FAMILY HISTORY: FAMILY HISTORY Problem Relation Age of Onset Diabetes Mother Diabetes Maternal Grandmother Diabetes Paternal Grandmother other (attention deficit) Son Diabetes Maternal Uncle other (no cardiac hx per pt) Other ALLERGIES: ALLERGIES Allergen Reactions Fish Containing Pro* Hives, Swelling Iodine Unknown Shellfish Derived Other: See Comments Tetanus Vaccines An* Local Reaction MEDICATIONS: Prior to Admission Medications: losartan (COZAAR) 100 mg tablet take 1 tablet by mouth once daily clopidogrel (PLAVIX) 75 mg tablet take 1 tablet by mouth once daily EPINEPHrine (EPIPEN) 0.3 mg/0.3 mL auto-injector Inject 0.3 mL intramuscularly as needed. fexofenadine (DAVID) 180 mg tablet Take 1 tablet daily. Can titrate up to 4 tablets in one day for hives with swelling. Do not exceed 4 tablets in 24 hours. fluticasone (FLONASE) 50 mcg/actuation nasal spray instill 1 TO 2 sprays into each nostril once daily if needed SITagliptin phosphate (JANUVIA) 50 mg tablet Take 1 tablet by mouth once daily. docosanol (ABREVA) 10 % crea Apply to affected area five times a day. atorvastatin (LIPITOR) 40 mg tablet Take 1 tablet by mouth once daily. metoprolol succinate ER (TOPROL XL) 25 mg 24 hr tablet Take 1 tablet by mouth once daily. hydroCHLOROthiazide 25 mg tablet Take 1 tablet by mouth once daily. amLODIPine (NORVASC) 10 mg tablet Take 1 tablet by mouth once daily. metFORMIN (GLUCOPHAGE) 500 mg tablet Take 2 tablets by mouth two times a day with meals. levothyroxine (LEVOXYL) 50 mcg tablet Take 1 tablet by mouth once daily. Take on empty stomach. For Thyroid blood sugar diagnostic (BLOOD GLUCOSE TEST) test strip Test blood sugar(s) 2 times daily. Dx: Type 2 DM - Uncontrolled E11.65 Insulin: No Lancets lancets Test blood sugar(s) 2 times daily. Dx: Type 2 DM - Uncontrolled E11.65 Insulin: No TRUE METRIX GLUCOSE METER Glucose Meter of Choice - Kit - Dx Type 2 DM - Uncontrolled E11.65 Miscellaneous Medical Supply 1 Each once daily. MULTIVITAMIN ORAL Take by mouth once daily. (Patient not taking: Reported on 02/16/2025) aspirin, enteric coated (ASPIRIN, ENTERIC COATED) 81 mg EC tablet take 1 tablet by mouth once daily No current facility-administered medications for this encounter. REVIEW OF SYSTEMS: Respiratory: Negative for smoking, dyspnea, cough, asthma, bronchitis, emphysema Cardiovascular: Negative for chest pain, leg swelling or palpitations. GI: See HPI PHYSICAL EXAM: No data found. General Appearance: well appearing, alert, in no acute distress Lungs: Lungs clear to auscultation. No wheezing, rhonchi, rales. Heart: RRR without murmur, gallop, or rubs. No ectopy Exogenous Class 1 Obesity PLAN OF TREATMENT: Colonoscopy SIGNATURE: Jemima Winn MD PATIENT NAME: Martha Venegas DATE: March 09, 2025 TIME: 8:40 AM Normal [facility] NURSING PROGon 03-09-2025 NURSING PROG HNO ID: [id number] Author: CHARO RAVI, RN Service: Nursing Author Type: Registered Nurse Type: Nursing Progress Note Filed: 03/09/2025 08:46 Note Text: PRE OP LEARNING ASSESSMENT PROCEDURE/SURGERY: GI PROCEDURES: Colonoscopy READINESS TO LEARN COGNITIVE ABILITY: Alert and oriented MOTIVATION TO LEARN: Eager FAMILY SUPPORT: High - Very involved in pt care PATIENT LEARNS BEST BY: Individual Instruction FACTORS AFFECTING LEARNING: None PHYSICAL LIMITATIONS AFFECTING LEARNING: None Electronically Signed By: Charo Ferrera RN In Department: AMBULATORY SURGERY Normal [facility] 03-03-2025 CNPN Telephone (FAMDNA) -- MARTHA VENEGAS ([id number]) 1970 F Date Time Provider Department 03/03/25 ISABEL DAVENPORT During your visit today, we recorded the following information about you: Luann Arita 03/03/2025 9:03 AM Signed Martha is calling Isabel Davenport MD today to advise she is having a procedure on 03/09/2025 , the [facility] paperwork will be coming to request to be off starting 03/07/2025 and 03/08/2025 which are her colonoscopy prep dates as the patient is already off on 03/09/2025. This is just a fyi that this paperwork with be coming from [place] for these two [facility] dates Patient has been identified by name and birthdate. Duration of symptoms: N/A Person calling: self Call patient at: on cell [phone] (home) [phone] (cell) Was an appointment scheduled: No Closing statement: Results or non-symptom based questions: Thank you for calling [facility], your call will be returned within the next business day. Luann Matthews [facility] Anastasia Ulloa LPN 03/03/2025 10:56 AM Signed Noted, will await receipt of fax Anastasia Ulloa LPN 03/04/2025 1:46 PM Signed [place] fmla forms received. Placed in pcp inbox for review. Isabel Davenport MD 03/13/2025 8:49 AM Signed FMLA paperwork filled out for absence 5*01/2025-03/09/2025. In outbasket. Please fax. Isabel Davenport MD Allergies As of Date: 03/03/2025 Noted Allergy Reaction FISH CONTAINING PRODUCTS 04/29/2019 4 - Hives 7 - Swelling IODINE 08/14/2024 16 - Unknown SHELLFISH DERIVED 08/14/2024 14 - Other: See Comments TETANUS VACCINES AND TOXOID 04/30/2009 Comments: Local Reaction Date Reviewed: 02/16/2025 Reviewed by: Clarisa Jeffrey MA - Fully Assessed Reason for Visit: Patient Update [1234] Prescriptions as of 03/13/2025 - losartan (COZAAR) 100 mg tablet take 1 tablet by mouth once daily - clopidogrel (PLAVIX) 75 mg tablet take 1 tablet by mouth once daily - EPINEPHrine (EPIPEN) 0.3 mg/0.3 mL auto-injector Inject 0.3 mL intramuscularly as needed. - fexofenadine (DAVID) 180 mg tablet Take 1 tablet daily. Can titrate up to 4 tablets in one day for hives with swelling. Do not exceed 4 tablets in 24 hours. - fluticasone (FLONASE) 50 mcg/actuation nasal spray instill 1 TO 2 sprays into each nostril once daily if needed - SITagliptin phosphate (JANUVIA) 50 mg tablet Take 1 tablet by mouth once daily. - docosanol (ABREVA) 10 % crea Apply to affected area five times a day. - atorvastatin (LIPITOR) 40 mg tablet Take 1 tablet by mouth once daily. - metoprolol succinate ER (TOPROL XL) 25 mg 24 hr tablet Take 1 tablet by mouth once daily. - hydroCHLOROthiazide 25 mg tablet Take 1 tablet by mouth once daily. - amLODIPine (NORVASC) 10 mg tablet Take 1 tablet by mouth once daily. - metFORMIN (GLUCOPHAGE) 500 mg tablet Take 2 tablets by mouth two times a day with meals. - levothyroxine (LEVOXYL) 50 mcg tablet Take 1 tablet by mouth once daily. Take on empty stomach. For Thyroid - blood sugar diagnostic (BLOOD GLUCOSE TEST) test strip Test blood sugar(s) 2 times daily. Dx: Type 2 DM - Uncontrolled Insulin: No - Lancets lancets Test blood sugar(s) 2 times daily. Dx: Type 2 DM - Uncontrolled Insulin: No - TRUE METRIX GLUCOSE METER Glucose Meter of Choice - Kit - Dx Type 2 DM - Uncontrolled - Miscellaneous Medical Supply 1 Each once daily. - MULTIVITAMIN ORAL Take by mouth once daily. - aspirin, enteric coated (ASPIRIN, ENTERIC COATED) 81 mg EC tablet take 1 tablet by mouth once daily Problem List As Of Date 03/03/2025 Noted Resolved CALCANEAL SPUR [M77.30] 09/22/2008 Primary hypertension [I10] 10/06/2008 Class 2 obesity with body mass index (BMI) of 3*10/06/2008 GANGLION OF JOINT [M67.40] 10/21/2008 IMPAIRED FASTING GLUCOSE [R73.01] 04/28/2009 Asthma [J45.909] 09/27/2009 Abnormality of Gait [R26.9] 04/27/2010 Attention deficit disorder of adult [F98.8] 10/23/2011 Pain in joint, shoulder region [M25.519] 09/05/2012 Adnexal mass [N94.89] 04/29/2013 Pain in left foot [M79.672] 08/17/2015 Pain in right foot [M79.671] 08/17/2015 Bilateral low back pain without sciatica [M54.5*08/17/2015 Diabetes mellitus (HCC) [E11.9] 10/10/2016 Plantar fascial fibromatosis of both feet [M72.*04/16/2017 TIA (transient ischemic attack) [G45.9] 01/16/2019 03/10/2019 Visual loss, both eyes [H54.3] 01/27/2019 Occipital stroke (HCC) [I63.9] 01/16/2019 PFO (patent foramen ovale) [Q21.12] 01/23/2020 Jaw pain [R68.84] 05/12/2020 History of stroke [Z86.73] 05/12/2020 Snoring [R06.83] 05/12/2020 Family history of sleep apnea [Z82.0] 05/12/2020 Depression [F32.A] 05/12/2020 Preop cardiovascular exam [Z01.810] 03/31/2021 Acquired hypothyroidism [E03.9] 04/20/2021 Hypertension [I10] 06/08/2022 Mixed hyperlipidemia [E78.2] 06/08/2022 Stroke (cerebrum) (HCC) [I63.9] 07/06 (more content not included)... [facility] ([id number]) 1970 F Date Time Provider Department 03/03/25 KEATON WADE ASWSNICKOLAS During your visit today, we recorded the following information about you: Yanet Meyer RN 03/03/2025 8:[address] Wade, This pt. needs rescheduled under [facility]. Please reach out to pt and assist in rescheduling. Thank you. KELLEN Brown Ida 03/03/2025 9:32 AM Addendum This patient has been contacted and rescheduled to [facility] Allergies As of Date: 03/03/2025 Noted Allergy Reaction FISH CONTAINING PRODUCTS 04/29/2019 4 - Hives 7 - Swelling IODINE 08/14/2024 16 - Unknown SHELLFISH DERIVED 08/14/2024 14 - Other: See Comments TETANUS VACCINES AND TOXOID 04/30/2009 Comments: Local Reaction Date Reviewed: 02/16/2025 Reviewed by: Clarisa Jeffrey MA - Fully Assessed Reason for Visit: Appointment [186] Prescriptions as of 03/03/2025 - losartan (COZAAR) 100 mg tablet take 1 tablet by mouth once daily - clopidogrel (PLAVIX) 75 mg tablet take 1 tablet by mouth once daily - EPINEPHrine (EPIPEN) 0.3 mg/0.3 mL auto-injector Inject 0.3 mL intramuscularly as needed. - fexofenadine (DAVID) 180 mg tablet Take 1 tablet daily. Can titrate up to 4 tablets in one day for hives with swelling. Do not exceed 4 tablets in 24 hours. - fluticasone (FLONASE) 50 mcg/actuation nasal spray instill 1 TO 2 sprays into each nostril once daily if needed - SITagliptin phosphate (JANUVIA) 50 mg tablet Take 1 tablet by mouth once daily. - docosanol (ABREVA) 10 % crea Apply to affected area five times a day. - atorvastatin (LIPITOR) 40 mg tablet Take 1 tablet by mouth once daily. - metoprolol succinate ER (TOPROL XL) 25 mg 24 hr tablet Take 1 tablet by mouth once daily. - hydroCHLOROthiazide 25 mg tablet Take 1 tablet by mouth once daily. - amLODIPine (NORVASC) 10 mg tablet Take 1 tablet by mouth once daily. - metFORMIN (GLUCOPHAGE) 500 mg tablet Take 2 tablets by mouth two times a day with meals. - levothyroxine (LEVOXYL) 50 mcg tablet Take 1 tablet by mouth once daily. Take on empty stomach. For Thyroid - blood sugar diagnostic (BLOOD GLUCOSE TEST) test strip Test blood sugar(s) 2 times daily. Dx: Type 2 DM - Uncontrolled E11.65 Insulin: No - Lancets lancets Test blood sugar(s) 2 times daily. Dx: Type 2 DM - Uncontrolled E11.65 Insulin: No - TRUE METRIX GLUCOSE METER Glucose Meter of Choice - Kit - Dx Type 2 DM - Uncontrolled E11.65 - Miscellaneous Medical Supply 1 Each once daily. - MULTIVITAMIN ORAL Take by mouth once daily. - aspirin, enteric coated (ASPIRIN, ENTERIC COATED) 81 mg EC tablet take 1 tablet by mouth once daily Problem List As Of Date 03/03/2025 Noted Resolved CALCANEAL SPUR [M77.30] 09/22/2008 Primary hypertension [I10] 10/06/2008 Class 2 obesity with body mass index (BMI) of 3*10/06/2008 GANGLION OF JOINT [M67.40] 10/21/2008 IMPAIRED FASTING GLUCOSE [R73.01] 04/28/2009 Asthma [J45.909] 09/27/2009 Abnormality of Gait [R26.9] 04/27/2010 Attention deficit disorder of adult [F98.8] 10/23/2011 Pain in joint, shoulder region [M25.519] 09/05/2012 Adnexal mass [N94.89] 04/29/2013 Pain in left foot [M79.672] 08/17/2015 Pain in right foot [M79.671] 08/17/2015 Bilateral low back pain without sciatica [M54.5*08/17/2015 Diabetes mellitus (HCC) [E11.9] 10/10/2016 Plantar fascial fibromatosis of both feet [M72.*04/16/2017 TIA (transient ischemic attack) [G45.9] 01/16/2019 03/10/2019 Visual loss, both eyes [H54.3] 01/27/2019 Occipital stroke (HCC) [I63.9] 01/16/2019 PFO (patent foramen ovale) [Q21.12] 01/23/2020 Jaw pain [R68.84] 05/12/2020 History of stroke [Z86.73] 05/12/2020 Snoring [R06.83] 05/12/2020 Family history of sleep apnea [Z82.0] 05/12/2020 Depression [F32.A] 05/12/2020 Preop cardiovascular exam [Z01.810] 03/31/2021 Acquired hypothyroidism [E03.9] 04/20/2021 Hypertension [I10] 06/08/2022 Mixed hyperlipidemia [E78.2] 06/08/2022 Stroke (cerebrum) (HCC) [I63.9] 07/21/2022 Leg length discrepancy [M21.70] 02/05/2023 Low vision right eye category 1, low vision lef*04/08/2024 Homonymous hemianopsia, left [H53.462] 04/08/2024 Presbyopia [H52.4] 04/08/2024 Status post placement of implantable loop recor* Encounter Status:Closed by OFELIA JOE on 03/03/25 Normal [facility] THAD SCREENING W TOMOon 02-27 THAD SCREENING W CAMILLA * * *Final Report* * * DATE OF EXAM: Feb 27 2025 7:55AM WRW [id number] - THAD SCREENING W CAMILLA / PROCEDURE REASON: Screening mammogram for breast cancer * * * * Physician Interpretation * * * * RESULT: [facility] [address] [place] [address] #[id number] - THAD SCREENING W CAMILLA HISTORY: 54 year-old patient seen for screening. Patient is asymptomatic in both breasts. Patient states no personal history of breast cancer. The patient has a family history of breast cancer. COMPARISON STUDIES: The present examination has been compared to prior imaging studies dated 03/19/2018 (mammogram), 01/05/2023 (mammogram) and 02/26/2024 (mammogram). MAMMOGRAM TECHNIQUE: The study was acquired using full field digital technology and interpreted from soft copy. Digital Breast Tomosynthesis (DBT) images were obtained and used to assist in the interpretation of this examination. MAMMOGRAM FINDINGS: There are scattered areas of fibroglandular density. There is a stable biopsy marker in the left breast. Loop recorder device in the upper inner left breast. There are no significant interval changes. No suspicious masses, calcifications or other abnormalities are seen in either breast. IMPRESSION: There is no mammographic evidence of malignancy. Routine screening mammogram is recommended. Annual mammogram will be due in 1 year. BI-RADS Category 2: Benign RISK: Based on the Tyrer-Cuzick (TC) risk assessment model, this patient has a 9.0% lifetime risk of developing breast cancer, meaning they are at average risk for developing breast cancer. However, this is only an estimate based on available history provided on the patient's questionnaire. We encourage all patients to talk with their providers about these results, further recommendations for managing breast health, and appropriate supplemental screening options if the patient has dense breast tissue. Interpreting Radiologist: Chika Pandey M.D. Electronically signed on: 03/02/2025 Case Repairer: ROSA Transcribe Date/Time: Feb 27 2025 7:43A Dictated by: CHIKA PANDEY MD This examination was interpreted and the report reviewed and electronically signed by: CHIKA PANDEY MD on Mar 02 2025 5:25PM EST [id number] Normal [facility] CNPNon 02-23-2025 CNPN Telephone (AGCARDPOB ) -- MARTHA VENEGAS ([id number]) 1970 F Date Time Provider Department 02/23/25 BELÉN ALCALAKSANDROVICHAGCARDPOB During your visit today, we recorded the following information about you: Gerald Lucas 02/23/2025 2:46 PM Signed Patient is scheduled for an ILR Removal on 04/[address] Alcala. The hospital will call the day before between 2-5pm with your arrival time. You should not eat or drink after midnight the day before the procedure. 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 Informed of instructions as stated above. Patient verbalized understanding. Colleen Velazco RN 02/23/2025 3:04 PM Signed Pt's name has been added to [facility] procedure board. Colleen Herrera RN Allergies As of Date: 02/23/2025 Noted Allergy Reaction FISH CONTAINING PRODUCTS 04/29/2019 4 - Hives 7 - Swelling IODINE 08/14/2024 16 - Unknown SHELLFISH DERIVED 08/14/2024 14 - Other: See Comments TETANUS VACCINES AND TOXOID 04/30/2009 Comments: Local Reaction Date Reviewed: 02/16/2025 Reviewed by: Clarisa Jeffrey MA - Fully Assessed Reason for Visit: Preparations For Procedures [899] Prescriptions as of 02/23/2025 - losartan (COZAAR) 100 mg tablet take 1 tablet by mouth once daily - clopidogrel (PLAVIX) 75 mg tablet take 1 tablet by mouth once daily - EPINEPHrine (EPIPEN) 0.3 mg/0.3 mL auto-injector Inject 0.3 mL intramuscularly as needed. - fexofenadine (DAVID) 180 mg tablet Take 1 tablet daily. Can titrate up to 4 tablets in one day for hives with swelling. Do not exceed 4 tablets in 24 hours. - fluticasone (FLONASE) 50 mcg/actuation nasal spray instill 1 TO 2 sprays into each nostril once daily if needed - SITagliptin phosphate (JANUVIA) 50 mg tablet Take 1 tablet by mouth once daily. - docosanol (ABREVA) 10 % crea Apply to affected area five times a day. - atorvastatin (LIPITOR) 40 mg tablet Take 1 tablet by mouth once daily. - metoprolol succinate ER (TOPROL XL) 25 mg 24 hr tablet Take 1 tablet by mouth once daily. - hydroCHLOROthiazide 25 mg tablet Take 1 tablet by mouth once daily. - amLODIPine (NORVASC) 10 mg tablet Take 1 tablet by mouth once daily. - metFORMIN (GLUCOPHAGE) 500 mg tablet Take 2 tablets by mouth two times a day with meals. - levothyroxine (LEVOXYL) 50 mcg tablet Take 1 tablet by mouth once daily. Take on empty stomach. For Thyroid - blood sugar diagnostic (BLOOD GLUCOSE TEST) test strip Test blood sugar(s) 2 times daily. Dx: Type 2 DM - Uncontrolled E11.65 Insulin: No - Lancets lancets Test blood sugar(s) 2 times daily. Dx: Type 2 DM - Uncontrolled E11.65 Insulin: No - TRUE METRIX GLUCOSE METER Glucose Meter of Choice - Kit - Dx Type 2 DM - Uncontrolled E11.65 - Miscellaneous Medical Supply 1 Each once daily. - MULTIVITAMIN ORAL Take by mouth once daily. - aspirin, enteric coated (ASPIRIN, ENTERIC COATED) 81 mg EC tablet take 1 tablet by mouth once daily Problem List As Of Date 02/23/2025 Noted Resolved CALCANEAL SPUR [M77.30] 09/22/2008 Primary hypertension [I10] 10/06/2008 Class 2 obesity with body mass index (BMI) of 3*10/06/2008 GANGLION OF JOINT [M67.40] 10/21/2008 IMPAIRED FASTING GLUCOSE [R73.01] 04/28/2009 Asthma [J45.909] 09/27/2009 Abnormality of Gait [R26.9] 04/27/2010 Attention deficit disorder of adult [F98.8] 10/23/2011 Pain in joint, shoulder region [M25.519] 09/05/2012 Adnexal mass [N94.89] 04/29/2013 Pain in left foot [M79.672] 08/17/2015 Pain in right foot [M79.671] 08/17/2015 Bilateral low back pain without sciatica [M54.5*08/17/2015 Diabetes mellitus (HCC) [E11.9] 10/10/2016 Plantar fascial fibromatosis of both feet [M72.*04/16/2017 TIA (transient ischemic attack) [G45.9] 01/16/2019 03/10/2019 Visual loss, both eyes [H54.3] 01/27/2019 Occipital stroke (HCC) [I63.9] 01/16/2019 PFO (patent foramen ovale) [Q21.12] 01/23/2020 Jaw pain [R68.84] 05/12/2020 History of stroke [Z86.73] 05/12/2020 Snoring [R06.83] 05/12/2020 Family history of sleep apnea [Z82.0] 05/12/2020 Depression [F32.A] 05/12/2020 Preop cardiovascular exam [Z01.810] 03/31/2021 Acquired hypothyroidism [E03.9] 04/20/2021 Hypertension [I10] 06/08/2022 Mixed hyperlipidemia [E78.2] 06/08/2022 Stroke (cerebrum) (HCC) [I63.9] 07/21/2022 Leg length discrepancy [M21.70] 02/05/2023 Low vision right eye category 1, low vision lef*04/08/2024 Homonymous hemianopsia, left [H53.462] 04/08/2024 Presbyopia [H52.4] 04/08/2024 Status post placement of implantable loop recor* Encounter Status:Closed by GERALD LUCAS on 02/23/25 [facility] CNPN Telephone (AGCARDPOB ) -- THEOMARTHA ([id number]) 1970 F Date Time Provider Department 02/23/25 BELÉN ALCALAHAGCARDPOB During your visit today, we recorded the following information about you: Belén Alcala MD 02/23/2025 11:30 AM Signed Will make arrangements for device explantation, please inform the patient. MD Dani Tavera Jennifer, LPN 02/23/2025 11:35 AM Signed Informed patient that Dr. Alcala will make arrangements for device explantation. Patient verbalizes understanding. 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 - fexofenadine (DAVID) 180 mg tablet Take 1 tablet daily. Can titrate up to 4 tablets in one day for hives with swelling. Do not exceed 4 tablets in 24 hours. - fluticasone (FLONASE) 50 mcg/actuation nasal spray instill 1 TO 2 sprays into each nostril once daily if needed - SITagliptin phosphate (JANUVIA) 50 mg tablet Take 1 tablet by mouth once daily. - docosanol (ABREVA) 10 % crea Apply to affected area five times a day. - atorvastatin (LIPITOR) 40 mg tablet Take 1 tablet by mouth once daily. - metoprolol succinate ER (TOPROL XL) 25 mg 24 hr tablet Take 1 tablet by mouth once daily. - hydroCHLOROthiazide 25 mg tablet Take 1 tablet by mouth once daily. - amLODIPine (NORVASC) 10 mg tablet Take 1 tablet by mouth once daily. - metFORMIN (GLUCOPHAGE) 500 mg tablet Take 2 tablets by mouth two times a day with meals. - levothyroxine (LEVOXYL) 50 mcg tablet Take 1 tablet by mouth once daily. Take on empty stomach. For Thyroid - blood sugar diagnostic (BLOOD GLUCOSE TEST) test strip Test blood sugar(s) 2 times daily. Dx: Type 2 DM - Uncontrolled E11.65 Insulin: No - Lancets lancets Test blood sugar(s) 2 times daily. Dx: Type 2 DM - Uncontrolled E11.65 Insulin: No - TRUE METRIX GLUCOSE METER Glucose Meter of Choice - Kit - Dx Type 2 DM - Uncontrolled E11.65 - Miscellaneous Medical Supply 1 Each once daily. - MULTIVITAMIN ORAL Take by mouth once daily. - aspirin, enteric coated (ASPIRIN, ENTERIC COATED) 81 mg EC tablet take 1 tablet by mouth once daily Problem List As Of Date 02/23/2025 Noted Resolved CALCANEAL SPUR [M77.30] 09/22/2008 Primary hypertension [I10] 10/06/2008 Class 2 obesity with body mass index (BMI) of 3*10/06/2008 GANGLION OF JOINT [M67.40] 10/21/2008 IMPAIRED FASTING GLUCOSE [R73.01] 04/28/2009 Asthma [J45.909] 09/27/2009 Abnormality of Gait [R26.9] 04/27/2010 Attention deficit disorder of adult [F98.8] 10/23/2011 Pain in joint, shoulder region [M25.519] 09/05/2012 Adnexal mass [N94.89] 04/29/2013 Pain in left foot [M79.672] 08/17/2015 Pain in right foot [M79.671] 08/17/2015 Bilateral low back pain without sciatica [M54.5*08/17/2015 Diabetes mellitus (HCC) [E11.9] 10/10/2016 Plantar fascial fibromatosis of both feet [M72.*04/16/2017 TIA (transient ischemic attack) [G45.9] 01/16/2019 03/10/2019 Visual loss, both eyes [H54.3] 01/27/2019 Occipital stroke (HCC) [I63.9] 01/16/2019 PFO (patent foramen ovale) [Q21.12] 01/23/2020 Jaw pain [R68.84] 05/12/2020 History of stroke [Z86.73] 05/12/2020 Snoring [R06.83] 05/12/2020 Family history of sleep apnea [Z82.0] 05/12/2020 Depression [F32.A] 05/12/2020 Preop cardiovascular exam [Z01.810] 03/31/2021 Acquired hypothyroidism [E03.9] 04/20/2021 Hypertension [I10] 06/08/2022 Mixed hyperlipidemia [E78.2] 06/08/2022 Stroke (cerebrum) (HCC) [I63.9] 07/21/2022 Leg length discrepancy [M21.70] 02/05/2023 Low vision right eye category 1, low vision lef*04/08/2024 Homonymous hemianopsia, left [H53.462] 04/08/2024 Presbyopia [H52.4] 04/08/2024 Status post placement of implantable loop recor* Encounter Status:Closed by CESIA FLORES on 02/23/25 [facility] [place] 02-16-2025 CNPRADIP Office Visit (EVANS [facility]) -- MARTHA VENEGAS ([id number]) 1970 F Date Time Provider Department 02/16/25 10:00 AM PHYLLIS BERNARDO During your visit today, we recorded the following information about you: Pulse Respiration Blood pressure Weight 68/minute 18/minute 128/78 89.8 kg Height 1.626 m Phyllis Bernardo APRN.CNP 02/16/2025 10:00 AM Signed Continue current regimen I will discuss loop recorder removal and update you Follow up in 6 months with DALIA or Dr. Camarillo Please call if you have any questions or concerns Pyhllis Bernardo APRN.[employer] 02/16/2025 10:07 AM Signed Chief Complaint: Patient presents with: Cardiology Follow Up : Follow up History of Present Illness: The patient is a 54-year-old female with a history of hypertension, hyperlipidemia, PFO, diabetes mellitus, and CVA in 01/2019, presenting for follow-up. The patient denies chest pain, dyspnea, lightheadedness, dizziness, palpitations, or lower extremity edema. She reports experiencing a sensation of pressure around her head, similar to sinus pressure, but without congestion. She plans to discuss this with her PCP. BP this visit 128/78, patient repports home readings being 118-120 systolically. In 01/2019, during the workup for her CVA, a LB revealed normal LV systolic function and a PFO, with no evidence of thrombus or masses. A loop recorder was implanted in 08/2019, which did not detect any arrhythmias. A PFO closure was attempted on 12/11/2022, but no intracardiac shunting was found. A TTE on 11/14/2022 showed an LVEF of 58%, grade 1 diastolic dysfunction, mild aortic valve regurgitation, a mid-ascending aorta measuring 4.1 cm, and a trivial pericardial effusion. Discused repeating ecchocardiogram to recheck aorta and AR this visit vs next of which patient would rather wait until next visit. Pt denies chest pain, leg swelling, shortness of breath, heart palpitations, orthopnea, cough, fever, dizziness, near syncope or syncope, nausea, vomiting diaphoresis, or falls Reviewed with patient and adjusted as needed : PMH, PSH, Fam hx, Social hx, Allergies. PAST MEDICAL HISTORY Diagnosis Date Asthma (HCC) Seasonal, uses Albuterol once a month Diabetes mellitus (HCC) Family history of sleep apnea History of stroke Hypertension Mixed hyperlipidemia PFO (patent foramen ovale) (HCC) Status post placement of implantable loop recorder Stroke (cerebrum) ([facility]) TMJ arthritis PAST SURGICAL HISTORY Procedure Laterality Date OOPHORECTOMY PARTIAL/TOTAL UNI/BI 2006 Right PAST SURGICAL HISTORY OF 2007 Excision abdominal mass PAST SURGICAL HISTORY OF 10/14/2008 right foot soft tissue mass excision PAST SURGICAL HISTORY OF 11/03/2010 Left planter fasciotomy PAST SURGICAL HISTORY OF 12/11/2022 PFO VAGINAL HYSTERECTOMY UTERUS 250 GM/< 2007 Hysterectomy, vaginal XTRNL PT ACTIV ECG TRANSMIS W/GABRIELE FAMILY HISTORY Problem Relation Age of Onset Diabetes Mother Diabetes Maternal Grandmother Diabetes Paternal Grandmother other (attention deficit) Son Diabetes Maternal Uncle other (no cardiac hx per pt) Other Social History Tobacco Use Smoking status: Never Smokeless tobacco: Never Vaping Use Vaping status: Never Used Substance Use Topics Alcohol use: Yes Comment: rare Drug use: No Current Outpatient Medications Medication Sig losartan (COZAAR) 100 mg tablet take 1 tablet by mouth once daily clopidogrel (PLAVIX) 75 mg tablet take 1 tablet by mouth once daily EPINEPHrine (EPIPEN) 0.3 mg/0.3 mL auto-injector Inject 0.3 mL intramuscularly as needed. fexofenadine (DAVID) 180 mg tablet Take 1 tablet daily. Can titrate up to 4 tablets in one day for hives with swelling. Do not exceed 4 tablets in 24 hours. fluticasone (FLONASE) 50 mcg/actuation nasal spray instill 1 TO 2 sprays into each nostril once daily if needed SITagliptin phosphate (JANUVIA) 50 mg tablet Take 1 tablet by mouth once daily. docosanol (ABREVA) 10 % crea Apply to affected area five times a day. atorvastatin (LIPITOR) 40 mg tablet Take 1 tablet by mouth once daily. metoprolol succinate ER (TOPROL XL) 25 mg 24 hr tablet Take 1 tablet by mouth once daily. hydroCHLOROthiazide 25 mg tablet Take 1 tablet by mouth once daily. amLODIPine (NORVASC) 10 mg tablet Take 1 tablet by mouth once daily. metFORMIN (GLUCOPHAGE) 500 mg tablet Take 2 tablets by mouth two times a day with meals. levothyroxine (LEVOXYL) 50 mcg tablet Take 1 tablet by mouth once daily. Take on empty stomach. For Thyroid blood sugar diagnostic (BLOOD GLUCOSE TEST) test strip Test blood sugar(s) 2 times daily. Dx: Type 2 DM - Uncontrolled E11.65 Insulin: No Lancets lancets Test blood sugar(s) 2 times daily. Dx: Type 2 DM - Uncontrolled E11.65 Insulin: No TRUE METRIX GLUCOSE METER Glucose Meter of Choice - Kit - Dx Type 2 DM - Uncontrolle (more content not included)... [facility] MANNY Telephone (CARDAGHWW ) -- MARTHA VENEGAS ([id number]) 1970 F Date Time Provider Department 02/16/25 PHYLLIS BERNARDO During your visit today, we recorded the following information about you: Phyllis Bernardo APRN.SRAVANTHI 02/16/2025 10:03 AM Signed This patient has an old loop recorder in that is no longer being used. She has misplaced the card for it and now is being told she can't fly with it. She is inquiring about having it removed. Thanks Phyllis Bernardo APRN.Merari Guevara MD 02/16/2025 10:15 AM Signed Looks like Dr. Alcala had implanted the loop recorder. I've included him in this message to see if he can arrange extraction. Thanks, Mearri Camarillo MD Allergies As of Date: 02/16/2025 Noted Allergy Reaction FISH CONTAINING PRODUCTS 04/29/2019 4 - Hives 7 - Swelling IODINE 08/14/2024 16 - Unknown SHELLFISH DERIVED 08/14/2024 14 - Other: See Comments TETANUS VACCINES AND TOXOID 04/30/2009 Comments: Local Reaction Date Reviewed: 02/16/2025 Reviewed by: Clarisa Jeffrey MA - Fully Assessed Reason for Visit: Appointment [[id number]] Prescriptions as of 02/23/2025 - losartan (COZAAR) 100 mg tablet take 1 tablet by mouth once daily - clopidogrel (PLAVIX) 75 mg tablet take 1 tablet by mouth once daily - EPINEPHrine (EPIPEN) 0.3 mg/0.3 mL auto-injector Inject 0.3 mL intramuscularly as needed. - fexofenadine (DAVID) 180 mg tablet Take 1 tablet daily. Can titrate up to 4 tablets in one day for hives with swelling. Do not exceed 4 tablets in 24 hours. - fluticasone (FLONASE) 50 mcg/actuation nasal spray instill 1 TO 2 sprays into each nostril once daily if needed - SITagliptin phosphate (JANUVIA) 50 mg tablet Take 1 tablet by mouth once daily. - docosanol (ABREVA) 10 % crea Apply to affected area five times a day. - atorvastatin (LIPITOR) 40 mg tablet Take 1 tablet by mouth once daily. - metoprolol succinate ER (TOPROL XL) 25 mg 24 hr tablet Take 1 tablet by mouth once daily. - hydroCHLOROthiazide 25 mg tablet Take 1 tablet by mouth once daily. - amLODIPine (NORVASC) 10 mg tablet Take 1 tablet by mouth once daily. - metFORMIN (GLUCOPHAGE) 500 mg tablet Take 2 tablets by mouth two times a day with meals. - levothyroxine (LEVOXYL) 50 mcg tablet Take 1 tablet by mouth once daily. Take on empty stomach. For Thyroid - blood sugar diagnostic (BLOOD GLUCOSE TEST) test strip Test blood sugar(s) 2 times daily. Dx: Type 2 DM - Uncontrolled E11.65 Insulin: No - Lancets lancets Test blood sugar(s) 2 times daily. Dx: Type 2 DM - Uncontrolled E11.65 Insulin: No - TRUE METRIX GLUCOSE METER Glucose Meter of Choice - Kit - Dx Type 2 DM - Uncontrolled E11.65 - Miscellaneous Medical Supply 1 Each once daily. - MULTIVITAMIN ORAL Take by mouth once daily. - aspirin, enteric coated (ASPIRIN, ENTERIC COATED) 81 mg EC tablet take 1 tablet by mouth once daily Problem List As Of Date 02/16/2025 Noted Resolved CALCANEAL SPUR [M77.30] 09/22/2008 Primary hypertension [I10] 10/06/2008 Class 2 obesity with body mass index (BMI) of 3*10/06/2008 GANGLION OF JOINT [M67.40] 10/21/2008 IMPAIRED FASTING GLUCOSE [R73.01] 04/28/2009 Asthma [J45.909] 09/27/2009 Abnormality of Gait [R26.9] 04/27/2010 Attention deficit disorder of adult [F98.8] 10/23/2011 Pain in joint, shoulder region [M25.519] 09/05/2012 Adnexal mass [N94.89] 04/29/2013 Pain in left foot [M79.672] 08/17/2015 Pain in right foot [M79.671] 08/17/2015 Bilateral low back pain without sciatica [M54.5*08/17/2015 Diabetes mellitus (HCC) [E11.9] 10/10/2016 Plantar fascial fibromatosis of both feet [M72.*04/16/2017 TIA (transient ischemic attack) [G45.9] 01/16/2019 03/10/2019 Visual loss, both eyes [H54.3] 01/27/2019 Occipital stroke (HCC) [I63.9] 01/16/2019 PFO (patent foramen ovale) [Q21.12] 01/23/2020 Jaw pain [R68.84] 05/12/2020 History of stroke [Z86.73] 05/12/2020 Snoring [R06.83] 05/12/2020 Family history of sleep apnea [Z82.0] 05/12/2020 Depression [F32.A] 05/12/2020 Preop cardiovascular exam [Z01.810] 03/31/2021 Acquired hypothyroidism [E03.9] 04/20/2021 Hypertension [I10] 06/08/2022 Mixed hyperlipidemia [E78.2] 06/08/2022 Stroke (cerebrum) (HCC) [I63.9] 07/21/2022 Leg length discrepancy [M21.70] 02/05/2023 Low vision right eye category 1, low vision lef*04/08/2024 Homonymous hemianopsia, left [H53.462] 04/08/2024 Presbyopia [H52.4] 04/08/2024 Status post placement of implantable loop recor* Encounter Status:Closed by PHYLLIS BERNARDO on 02/23/25 Normal [facility] Hemoccult Stl Ql IAon 2024 Lower GI hemoglobin IA Ql (Stl) Positive Abnormal Negative [facility] Comment on above: Order Comment: Speci men Type: BLOOD SPECIMEN Ordering Facility: [facility] Address: [address] [place] [address] Performed By: #### [id number] #### [facility] CLIA [id number] [address] [place] [address] [place] 02-03-2025 CNPN Telephone (AMADA) -- MARTHA VENEGAS ([id number]) 1970 F Date Time Provider Department 02/03/25 ISABEL DAVENPORT During your visit today, we recorded the following information about you: Lorene Jasso LPN 02/03/2025 3:51 PM Signed Received 02/03/2025 from [employer] (formerly [employer]) . Placed in provider's inbox for review. Route to [place] for faxing. Lorene Jasso LPN 02/10/2025 10:35 AM Signed Patient can not remember the dates. She is going to email her the company to get dates she was off. Isabel Davenport MD 02/12/2025 9:24 AM Signed [place] paperwork filled out with retrospective dates off work. MD Christian Haile Cheralyn, LPN 02/12/2025 2:34 PM Signed Fax sent Allergies As of Date: 02/03/2025 Noted Allergy Reaction FISH CONTAINING PRODUCTS 04/29/2019 4 - Hives 7 - Swelling IODINE 08/14/2024 16 - Unknown SHELLFISH DERIVED 08/14/2024 14 - Other: See Comments TETANUS VACCINES AND TOXOID 04/30/2009 Comments: Local Reaction Date Reviewed: 01/15/2025 Reviewed by: Marilee Powers LPN - Fully Assessed Reason for Visit: Received Outside Medical Records [[id number]] Cmt: [employer] [facility] Certification of Health Care provider for employees serious health condition 02/03/2025 Prescriptions as of 02/12/2025 - losartan (COZAAR) 100 mg tablet take 1 tablet by mouth once daily - clopidogrel (PLAVIX) 75 mg tablet take 1 tablet by mouth once daily - EPINEPHrine (EPIPEN) 0.3 mg/0.3 mL auto-injector Inject 0.3 mL intramuscularly as needed. - fexofenadine (DAVID) 180 mg tablet Take 1 tablet daily. Can titrate up to 4 tablets in one day for hives with swelling. Do not exceed 4 tablets in 24 hours. - fluticasone (FLONASE) 50 mcg/actuation nasal spray instill 1 TO 2 sprays into each nostril once daily if needed - SITagliptin phosphate (JANUVIA) 50 mg tablet Take 1 tablet by mouth once daily. - docosanol (ABREVA) 10 % crea Apply to affected area five times a day. - atorvastatin (LIPITOR) 40 mg tablet Take 1 tablet by mouth once daily. - metoprolol succinate ER (TOPROL XL) 25 mg 24 hr tablet Take 1 tablet by mouth once daily. - hydroCHLOROthiazide 25 mg tablet Take 1 tablet by mouth once daily. - amLODIPine (NORVASC) 10 mg tablet Take 1 tablet by mouth once daily. - metFORMIN (GLUCOPHAGE) 500 mg tablet Take 2 tablets by mouth two times a day with meals. - levothyroxine (LEVOXYL) 50 mcg tablet Take 1 tablet by mouth once daily. Take on empty stomach. For Thyroid - blood sugar diagnostic (BLOOD GLUCOSE TEST) test strip Test blood sugar(s) 2 times daily. Dx: Type 2 DM - Uncontrolled E11.65 Insulin: No - Lancets lancets Test blood sugar(s) 2 times daily. Dx: Type 2 DM - Uncontrolled E11.65 Insulin: No - TRUE METRIX GLUCOSE METER Glucose Meter of Choice - Kit - Dx Type 2 DM - Uncontrolled E11.65 - Miscellaneous Medical Supply 1 Each once daily. - MULTIVITAMIN ORAL Take by mouth once daily. - aspirin, enteric coated (ASPIRIN, ENTERIC COATED) 81 mg EC tablet take 1 tablet by mouth once daily Problem List As Of Date 02/03/2025 Noted Resolved CALCANEAL SPUR [M77.30] 09/22/2008 Primary hypertension [I10] 10/06/2008 Class 2 obesity with body mass index (BMI) of 3*10/06/2008 GANGLION OF JOINT [M67.40] 10/21/2008 IMPAIRED FASTING GLUCOSE [R73.01] 04/28/2009 Asthma [J45.909] 09/27/2009 Abnormality of Gait [R26.9] 04/27/2010 Attention deficit disorder of adult [F98.8] 10/23/2011 Pain in joint, shoulder region [M25.519] 09/05/2012 Adnexal mass [N94.89] 04/29/2013 Pain in left foot [M79.672] 08/17/2015 Pain in right foot [M79.671] 08/17/2015 Bilateral low back pain without sciatica [M54.5*08/17/2015 Diabetes mellitus (HCC) [E11.9] 10/10/2016 Plantar fascial fibromatosis of both feet [M72.*04/16/2017 TIA (transient ischemic attack) [G45.9] 01/16/2019 03/10/2019 Visual loss, both eyes [H54.3] 01/27/2019 Occipital stroke (HCC) [I63.9] 01/16/2019 PFO (patent foramen ovale) [Q21.12] 01/23/2020 Jaw pain [R68.84] 05/12/2020 History of stroke [Z86.73] 05/12/2020 Snoring [R06.83] 05/12/2020 Family history of sleep apnea [Z82.0] 05/12/2020 Depression [F32.A] 05/12/2020 Preop cardiovascular exam [Z01.810] 03/31/2021 Acquired hypothyroidism [E03.9] 04/20/2021 Hypertension [I10] 06/08/2022 Mixed hyperlipidemia [E78.2] 06/08/2022 Stroke (cerebrum) (HCC) [I63.9] 07/21/2022 Leg length discrepancy [M21.70] 02/05/2023 Low vision right eye category 1, low vision lef*04/08/2024 Homonymous hemianopsia, left [H53.462] 04/08/2024 Presbyopia [H52.4] 04/08/2024 Status post placement of implantable loop recor* Encounter Status:Closed by LORENE JASSO on 02/03/25 [facility] CNOVon 01-15-2025 CNOV Office Visit (ALLEST ) -- MARTHA VENEGAS ([id number]) 1970 F Date Time Provider Department 01/15/25 1:30 PM ELIZABETH PEREIRA During your visit today, we recorded the following information about you: Pulse Weight 75/minute 89 kg Elizabeth Pereira MD 01/22/2025 9:54 PM Signed Allergy and Immunology All aspects of this note have been reviewed and updated. Consultation requested by Self for an opinion regarding hives and swelling. My final recommendations will be communicated back to the requesting physician by way of shared Medical record or letter to requesting physician via US mail. Martha Veengas is a 54 year old female with PMHx CVA, HTN, asthma, acquired hypothyroidism who presents today for evaluation of hives and swelling. The patient reports that she has been having daily hives and swelling for at least the last 4 weeks. She states that the hives are located all over her body and migrate and last between 24 and 48 hours. There are red, itchy and swollen. They do not burn, bruise, or scar. They do not worsen with ibuprofen, Motrin, Aleve, or naproxen. She does not notice worsening symptoms with alcohol. She was diagnosed with COVID in November 2024 and unfortunately her mother in December 2024. She denies any new skin care products but reports that she has tried Vaseline, Brendon pose a balm, Neosporin and Benadryl cream without any improvement in her symptoms. She has pictures that are consistent with urticaria and associated angioedema. She denies any physical triggers including pressure, vibration, sunlight, cold or hot temperatures. She has not been out of the country since this started. 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 She does not carry an epinephrine autoinjector. She reports immediate tongue swelling after ingestion of shellfish and difficulty breathing. MYC COLLATERAL ALLERGY HISTORY Question 01/13/2025 3:25 PM EDT - Filed by Patient Do you have or have you ever been diagnosed with allergic rhinitis? Not Sure Have you ever been skin tested for allergies? No Do you have asthma? No Do you have or have you ever been diagnosed with eczema or atopic dermatitis? No Do you get frequent sinus infections? No Do you have nasal polyps? No Do you have or have you ever been diagnosed with urticaria / hives? No Do you have or have you ever been diagnosed with angioedema? No Do you have or have you ever been diagnosed with food allergy? Yes Do you have or have you ever been diagnosed with stinging insect allergy (bee, wasp, yellow jacket, hornet)? No Are you allergic to Penicillin antibiotics? No MYC ALLERGY ENVIROMENTAL EXPOSURES Question 01/13/2025 3:28 PM EDT - Filed by Patient Aeroallergens Exposure What pet(s) you have at home? No pets Is there evidence of a mouse infestation in your home? No Is there evidence of a cockroach infestation in your home? No Is there evidence of mold or mildew in your home? No Is your home air conditioned during the summer? Yes Do you use zip around dust mite covers on all mattresses and pillows? Yes Is there exposure in the home to cigarette or cigar smoke? No Is there any exposure to vaping? No PAST MEDICAL HISTORY Diagnosis Date Asthma Seasonal, uses Albuterol once a month Diabetes mellitus (HCC) Family history of sleep apnea History of stroke Hypertension Mixed hyperlipidemia PFO (patent foramen ovale) Status post placement of implantable loop recorder Stroke (cerebrum) (HCC) TMJ arthritis PAST SURGICAL HISTORY Procedure Laterality Date OOPHORECTOMY PARTIAL/TOTAL UNI/BI 2007 Right PAST SURGICAL HISTORY OF 2007 Excision abdominal mass PAST SURGICAL HISTORY OF 10/14/2008 right foot soft tissue mass excision PAST SURGICAL HISTORY OF 11/03/2010 Left planter fasciotomy PAST SURGICAL HISTORY OF 12/11/2022 PFO VAGINAL HYSTERECTOMY UTERUS 250 GM/< 2007 Hysterectomy, vaginal XTRNL PT ACTIV ECG TRANSMIS W/GABRIELE FAMILY HISTORY Problem Relation Age of Onset Diabetes Mother Diabetes Maternal Grandmother Diabetes Paternal Grandmother other (attention deficit) Son Diabetes Maternal Uncle other (no cardiac hx per pt) Other Current Outpatient Medications Medication Sig EPINEPHrine (EPIPEN) 0.3 mg/0.3 mL auto-injector Inject 0.3 mL intramuscularly as needed. fexofenadine (DAVID) 180 mg tablet Take 1 tablet daily. Can titrate up to 4 tablets in one day for hives with swelling. Do not exceed 4 tablets in 24 hours. fluticasone (FLONASE) 50 mcg/actuation nasal spray instill 1 TO 2 sprays into each nostril once daily if needed SITagliptin phosphate (JANUVIA) 50 mg tablet Take 1 tablet by mouth once daily. docosanol (ABREVA) 10 % crea Apply to affected area five times a day. atorvastatin (LIPITOR) 40 mg tablet Take 1 tablet by mouth once daily (more content not included)... Normal [facility] CNOVon 01-05-2025 CNOV Office Visit (FPWADS ) -- MARTHA VENEGAS ([id number]) 1970 F Date Time Provider Department 01/05/25 9:20 AM ISABEL DAVENPORT FPALYDS During your visit today, we recorded the following information about you: Pulse Blood pressure Weight Height 70/minute 132/80 90 kg 1.626 m Isabel Davenport MD 01/05/2025 11:09 AM Signed CHIEF COMPLAINT Patient presents with: Follow Up HISTORY OF PRESENT ILLNESS Martha Venegas is a 54 year old female who presents here today for follow up. I last saw this patient on 01/08/2024. - Mother recently to breast cancer Diabetes - A1c is 12.3% - Currently managed on metformin 500 mg (2 tablets) BID - Previously tried glimepiride, was having low BS Mouth - Has intermittent flare ups of blistering/rash of the lips - Admits to noticing seeping - Has tried OTC medication without benefit - Does report a similar episode when she had Covid Health Maintenance Due for BP Controlled (<130/80) Due for Shingrix Vaccine (2 of 2) Due for Influenza Vaccine (1) Due for Covid-19 Vaccine ( season) Due for Spirometry Due for Anxiety Screening Due for Hep B Vaccine (1 of 3-3 dose series) Due for Colorectal Cancer Screening Due for Diabetic Foot Exam Due for Mammogram Screening Labs reviewed. Past medical history, appointments, medications, allergies reviewed. REVIEW OF SYSTEMS General: Feels well, no weight changes, fevers or chills. HEENT: +lesion of the lip, intermittent, seeping No sinus congestion, earache, sore throat. Cardiac: No chest pain, palpitations Resp: No cough, wheeze, shortness of breath GI: No reflux symptoms, food intolerance, bowel changes. : No urinary frequency, dysuria. MS: No pain or joint complaints. PAST MEDICAL HISTORY PAST MEDICAL HISTORY Diagnosis Date Asthma Seasonal, uses Albuterol once a month Diabetes mellitus (HCC) Family history of sleep apnea History of stroke Hypertension Mixed hyperlipidemia PFO (patent foramen ovale) Status post placement of implantable loop recorder Stroke (cerebrum) ([facility]) TMJ arthritis PHYSICAL EXAMINATION BP 132/80 Pulse 70 Ht 162.6 cm (5' 4) Wt 90 kg (198 lb 6.6 oz) SpO2 97% BMI 34.06 kg/m? Repeat BP: 128/79 General: Alert, well developed, well nourished, no distress, pleasant and cooperative. Obese. Heart: Regular rate and rhythm. Normal S1 and S2. No murmurs, rubs, or gallops. Lungs: Clear to auscultation bilaterally. No respiratory distress. No wheezes, rales, or rhonchi. Abdomen: Soft, non-tender, no distention. Extremities: Feet/ankles without edema, posterior tibial pulses full and symmetrical. Feet: Shoes and socks removed. Are you having foot pain- No. No deformities, ulcers, calluses, and normal distal pulses Data Reviewed Latest Ref Rng 01/02/2025 WBC 3.70 - 11.00 k/uL 12.61 (H) RBC 3.90 - 5.20 m/uL 4.75 Hemoglobin 11.5 - 15.5 g/dL 12.3 Hematocrit 36.0 - 46.0 % 39.2 MCV 80.0 - 100.0 fL 82.5 MCH 26.0 - 34.0 pg 25.9 (L) MCHC 30.5 - 36.0 g/dL 31.4 RDW-CV 11.5 - 15.0 % 14.6 Platelet Count 150 - 400 k/uL 289 MPV 9.0 - 12.7 fL 11.0 Absolute nRBC <0.01 k/uL <0.01 Cholesterol, Total <200 mg/dL 182 Triglyceride <150 mg/dL 131 HDL Cholesterol >39 mg/dL 49 Non HDL Cholesterol <130 mg/dL 133 (H) Fasting Time hrs 12 VLDL Cholesterol <30 mg/dL 26 TC:HDL Ratio <5.10 3.71 LDL Cholesterol <100 mg/dL 107 (H) LDL:HDL Ratio <2.54 2.18 Hemoglobin A1C 4.3 - 5.6 % 12.3 (H) Estimated Average Glucose mg/dL 306 Legend: (H) High (L) Low Assessment/Plan (E11.9) Type 2 diabetes mellitus without complication, without long-term current use of insulin (HCC) (primary encounter diagnosis) Comment: A1c continues to trend up, 12.3% per recent labs Plan: Continue metformin Start januvia 50 mg daily (E78.2) Mixed hyperlipidemia Comment: Well managed on statin therapy Plan: Continue current regimen (I10) Essential hypertension Comment: Good control Plan: Continue current regimen (I63.439) 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, unspecified blood vessel laterality (HCC) Comment: On plavix Plan: Continue current regimen (E03.9) Acquired hypothyroidism Comment: Well managed on levoxyl Plan: Continue current regimen (Z12.31) Screening mammogram for breast cancer Comment: Per health maintenance. Family history of breast cancer in mother. Plan: THAD SCREENING (F43.20, Z63.4) Bereavement reaction Comment: Mother recently to breast cancer Plan: Pt brought in [facility] paperwork, was out of work from December 16 to the . Paperwork will be completed and returned (K13.70) Oral lesion Comment: Intermittent, seeping. Description does not sound like HSV, Consider food reaction Plan: Will continue to monitor will try topical abreva for next outbreak. Requested Prescript (more content not included)... Normal [facility] CBC panel Auto (Bld)on 01-02 Erythrocyte distribution width (RBC) [Ratio] 14.6 % Normal 11.5-15.0 [facility] Comment on above: Order Comment: Speci men Type: BLOOD SPECIMENOrdering Facility: [facility] Address: [address] [place] [address] Performed By: #### 5 8410-2 ####[facility] [id number] [place] [address] [place] Hematocrit (Bld) [Volume fraction] 39.2 % Normal 36.0-46.0 [facility] Comment on above: Order Comment: Speci men Type: BLOOD SPECIMENOrdering Facility: [facility] Address: [address] [place] [address] Performed By: #### 5 8410-2 ####[facility] [id number] [place] [address] [place] Hemoglobin (Bld) [Mass/Vol] 12.3 g/dL Normal 11.5-15.5 [facility] Comment on above: Order Comment: Speci men Type: BLOOD SPECIMENOrdering Facility: [facility] Address: [address] [place] [address] Performed By: #### 5 8410-2 ####[facility] [id number] [place] [address] [place] MCH (RBC) [Entitic mass] 25.9 pg Low 26.0-34.0 [facility] Comment on above: Order Comment: Speci men Type: BLOOD SPECIMENOrdering Facility: [facility] Address: [address] [place] [address] Performed By: #### 5 8410-2 ####[facility] [id number] [place] [address] [place] MCHC (RBC) [Mass/Vol] 31.4 g/dL Normal 30.5-36.0 [facility] Comment on above: Order Comment: Speci men Type: BLOOD SPECIMENOrdering Facility: [facility] Address: [address] [place] [address] Performed By: #### 5 8410-2 ####[facility] [id number] [place] [address] [place] MCV (RBC) [Entitic vol] 82.5 fL Normal 80.0-100.0 [facility] Comment on above: Order Comment: Speci men Type: BLOOD SPECIMENOrdering Facility: [facility] Address: [address] [place] [address] Performed By: #### 5 8410-2 ####[facility] [id number] [place] [address] [place] Nucleated RBC (Bld) [#/Vol] 10*3/uL Normal <0.01 [facility] Comment on above: Order Comment: Speci men Type: BLOOD SPECIMENOrdering Facility: [facility] Address: [address] [place] [address] Performed By: #### 5 8410-2 ####[facility]ENTERLIA [id number] [address] [place] Platelet mean volume (Bld) [Entitic vol] 11.0 fL Normal 9.0-12.7 [facility] Comment on above: Order Comment: Speci men Type: BLOOD SPECIMENOrdering Facility: [facility] Address: [address] [place], [place] [id number] Performed By: #### 5 8410-2 ####[facility] [id number] [place] [address] [place] Platelets (Bld) [#/Vol] 289 10*3/uL Normal 150-400 [facility] Comment on above: Order Comment: Speci men Type: BLOOD SPECIMENOrdering Facility: [facility] Address: [address] [place] [address] Performed By: #### 5 8410-2 ####[facility] [id number] [place] [address] [place] RBC (Bld) [#/Vol] 4.75 10*6/uL Normal 3.90-5.20 [facility] Comment on above: Order Comment: Speci men Type: BLOOD SPECIMENOrdering Facility: [facility] Address: [address] [place] [address] Performed By: #### 5 8410-2 ####[facility] [id number] [place] [address] [place] WBC (Bld) [#/Vol] 12.61 10*3/uL High 3.70-11.00 [facility] Comment on above: Order Comment: Speci men Type: BLOOD SPECIMENOrdering Facility: [facility] Address: [address] [place] [address] Performed By: #### 5 8410-2 ####[facility] [id number] [place] [address] [place] HbA1c (Bld)on 01-02-2025 Average glucose Estimated from glycated hemoglobin (Bld) [Mass/Vol] 306 mg/dL Normal [facility] Comment on above: Order Comment: Speci men Type: BLOOD SPECIMEN [facility] Address: [address] [place] [address] Result Comment: eAG: (Estimated average glucose) is a calculated value from HgbA1c and is sales representative business courses of the average blood glucose level in the last 2-3 month period. Performed By: #### 5 5454-3 #### [facility] CLIA [id number] [address] [place] [address] [place] HbA1c (Bld) [Mass fraction] 12.3 % High 4.3-5.6 [facility] Comment on above: Order Comment: Zane lorenzo Type: BLOOD SPECIMEN [facility] Address: [address] [place] [address] Result Comment: Amer [place] Diabetes Association guidelines indicate that patients with HgbA1c in the range 5.7-6.4% are at increased risk for development of diabetes, and intervention by lifestyle modification may be beneficial. HgbA1c greater or equal to 6.5% is considered diagnostic of diabetes. Performed By: #### 5 5454-3 #### [facility] CLIA [id number] [address] [place] [address] [place] Lipid 1996 panelon 5 Cholesterol [Mass/Vol] 182 mg/dL Normal <200 [facility] Comment on above: Order Comment: Zane lorenzo Type: BLOOD SPECIMEN [facility] Address: [address] [place] [address] Result Comment: <200 mg/dL, Desirable 200-239 mg/dL, Borderline high >239 mg/dL, High Performed By: #### 5 5454-3 #### [facility] CLIA [id number] [address] [place] [address] [place] Cholesterol in HDL [Mass/Vol] 49 mg/dL Normal >39 [facility] Comment on above: Order Comment: Zane lorenzo Type: BLOOD SPECIMEN [facility] Address: [address] [place] [address] Result Comment: 40-5 9 mg/dL, Acceptable >59 mg/dL, High: Negative risk factor for coronary heart disease <40 mg/dL, Low: Positive risk factor for coronary heart disease Performed By: #### 5 5454-3 #### [facility] CLIA [id number] [address] [place] [address] [place] Cholesterol in LDL [Mass/Vol] 107 mg/dL High <100 [facility] Comment on above: Order Comment: Speci men Type: BLOOD SPECIMEN [facility] Address: [address] [place] [address] Result Comment: <100 mg/dL, Optimal 100-129 mg/dL, Near optimal/above optimal 130-159 mg/dL, Borderline high 160-189 mg/dL, High >189 mg/dL, Very high Secondary prevention optimal LDL Cholesterol levels are recommended to be < 70 mg/dL Performed By: #### 5 5454-3 #### [facility] CLIA [id number] [address] [place], [place] [address] [address] Cholesterol in LDL/Cholesterol in HDL [Mass ratio] 2.18 {ratio} Normal <2.54 [facility] Comment on above: Order Comment: Tomási men Type: BLOOD SPECIMEN [facility] Address: [address] [place] [address] Result Comment: Claudia blulock: 1. National Cholesterol Education Program ATP III Guideline At-A-Glance Quick Desk Reference: National Heart, Lung, and Blood [place]. National Institutes of Health. 2001: NIH Publication No. 01-3305. 2. An International Atherosclerosis Society position paper: global recommendations for the management of dyslipidemia: executive summary, Atherosclerosis. 2014: 232(2):410-413. Performed By: #### 5 5454-3 #### [facility] CLIA [id number] [address] [place] [address] [place] Cholesterol in VLDL [Mass/Vol] 26 mg/dL Normal <30 [facility] Comment on above: Order Comment: Speci men Type: BLOOD SPECIMEN [facility] Address: [address] [place] [address] Performed By: #### 5 5454-3 #### [facility] CLIA [id number] [address] [place] [address] [place] Cholesterol non HDL [Mass/Vol] 133 mg/dL High <130 [facility] Comment on above: Order Comment: Speci men Type: BLOOD SPECIMEN [facility] Address: [address] [place] [address] Result Comment: <130 mg/dL, Optimal 130-159 mg/dL, Near optimal/above optimal 160-189 mg/dL, Borderline high 190-219 mg/dL, High >219 mg/dL, Very high Secondary prevention optimal non HDL Cholesterol levels are recommended to be <100 mg/dL Performed By: #### 5 5454-3 #### [facility] CLIA [id number] [address] [place] [address] [place] Cholesterol.total/ Cholesterol in HDL [Mass ratio] 3.71 {ratio} Normal <5.10 [facility] Comment on above: Order Comment: Speci men Type: BLOOD SPECIMEN [facility] Address: [address] [place] [address] Performed By: #### 5 5454-3 #### [facility] CLIA [id number] [address] [place] [address] STATES [facility] FASTING TIME 12 hrs Normal [facility] Comment on above: Order Comment: Speci men Type: BLOOD SPECIMEN [facility] Address: [address] [place] [address] Performed By: #### 5 5454-3 #### [facility] CLIA [id number] [address] [place] [address] [place] Triglyceride [Mass/Vol] 131 mg/dL Normal <150 [facility] Comment on above: Order Comment: Speci men Type: BLOOD SPECIMEN [facility] Address: [address] [place] [address] Result Comment: <150 mg/dL, Normal 150-199 mg/dL, Borderline high 200-499 mg/dL, High >499 mg/dL, Very high Performed By: #### 5 5454-3 #### [facility] CLIA [id number] [address] [place] [address] [place] CNPNon 12-25-2024 [facility] THEOMARTHA Princess ([id number]) 1970 F Date Time Provider Department 12/25/24 ISABEL DAVENPORT During your visit today, we recorded the following information about you: Anastasia Ulloa LPN 12/25/2024 4:21 PM Signed Received [facility] paperwork from [facility]. Placed in provider's inbox for review. Route to [place] fax Isabel Davenport MD 01/12/2025 2:33 PM Signed CHECK WITH Martha, is this disability paper for a specific time off work, ongoing/ future time out of work, limitations in duties? Please review form with her and see what she needs. MD Christian Haile Cheralyn, LPN 01/15/2025 8:10 AM Signed Fax sent. Allergies As of Date: 12/25/2024 Noted Allergy Reaction FISH CONTAINING PRODUCTS 04/29/2019 4 - Hives 7 - Swelling TETANUS VACCINES AND TOXOID 04/30/2009 Comments: Local Reaction Date Reviewed: 06/11/2024 Reviewed by: Mckenzie Flores MA - Fully Assessed Reason for Visit: [facility] Paperwork [4185] Cmt: [facility] Prescriptions as of 01/15/2025 - fluticasone (FLONASE) 50 mcg/actuation nasal spray instill 1 TO 2 sprays into each nostril once daily if needed - SITagliptin phosphate (JANUVIA) 50 mg tablet Take 1 tablet by mouth once daily. - docosanol (ABREVA) 10 % crea Apply to affected area five times a day. - atorvastatin (LIPITOR) 40 mg tablet Take 1 tablet by mouth once daily. - metoprolol succinate ER (TOPROL XL) 25 mg 24 hr tablet Take 1 tablet by mouth once daily. - hydroCHLOROthiazide 25 mg tablet Take 1 tablet by mouth once daily. - amLODIPine (NORVASC) 10 mg tablet Take 1 tablet by mouth once daily. - clopidogrel (PLAVIX) 75 mg tablet Take 1 tablet by mouth once daily. - metFORMIN (GLUCOPHAGE) 500 mg tablet Take 2 tablets by mouth two times a day with meals. - losartan (COZAAR) 100 mg tablet Take 1 tablet by mouth once daily. - levothyroxine (LEVOXYL) 50 mcg tablet Take 1 tablet by mouth once daily. Take on empty stomach. For Thyroid - blood sugar diagnostic (BLOOD GLUCOSE TEST) test strip Test blood sugar(s) 2 times daily. Dx: Type 2 DM - Uncontrolled Insulin: No - Lancets lancets Test blood sugar(s) 2 times daily. Dx: Type 2 DM - Uncontrolled Insulin: No - TRUE METRIX GLUCOSE METER Glucose Meter of Choice - Kit - Dx Type 2 DM - Uncontrolled - Miscellaneous Medical Supply 1 Each once daily. - MULTIVITAMIN ORAL Take by mouth once daily. - aspirin, enteric coated (ASPIRIN, ENTERIC COATED) 81 mg EC tablet take 1 tablet by mouth once daily Problem List As Of Date 12/25/2024 Noted Resolved CALCANEAL SPUR [M77.30] 09/22/2008 Primary hypertension [I10] 10/06/2008 Class 2 obesity with body mass index (BMI) of 3*10/06/2008 GANGLION OF JOINT [M67.40] 10/21/2008 IMPAIRED FASTING GLUCOSE [R73.01] 04/28/2009 Asthma [J45.909] 09/27/2009 Abnormality of Gait [R26.9] 04/27/2010 Attention deficit disorder of adult [F98.8] 10/23/2011 Pain in joint, shoulder region [M25.519] 09/05/2012 Adnexal mass [N94.89] 04/29/2013 Pain in left foot [M79.672] 08/17/2015 Pain in right foot [M79.671] 08/17/2015 Bilateral low back pain without sciatica [M54.5*08/17/2015 Diabetes mellitus (HCC) [E11.9] 10/10/2016 Plantar fascial fibromatosis of both feet [M72.*04/16/2017 TIA (transient ischemic attack) [G45.9] 01/16/2019 03/10/2019 Visual loss, both eyes [H54.3] 01/27/2019 Occipital stroke (HCC) [I63.9] 01/16/2019 PFO (patent foramen ovale) [Q21.12] 01/23/2020 12/25/2022 Jaw pain [R68.84] 05/12/2020 History of CVA (cerebrovascular accident) [Z86.*05/12/2020 Snoring [R06.83] 05/12/2020 Family history of sleep apnea [Z82.0] 05/12/2020 Depression [F32.A] 05/12/2020 Preop cardiovascular exam [Z01.810] 03/31/2021 Acquired hypothyroidism [E03.9] 04/20/2021 Hypertension [I10] 06/08/2022 Mixed hyperlipidemia [E78.2] 06/08/2022 Cerebrovascular accident (CVA) due to embolism *07/21/2022 Leg length discrepancy [M21.70] 02/05/2023 Low vision right eye category 1, low vision lef*04/08/2024 Homonymous hemianopsia, left [H53.462] 04/08/2024 Presbyopia [H52.4] 04/08/2024 Encounter Status:Closed by ANASTASIA ULLOA on 12/25/24 Normal [facility] 11-12-[address] [facility] Telephone ([facility]) -- MARTHA VENEGAS ([id number]) 1970 F Date Time Provider Department 11/12/24 JORGE HOBSON [facility] During your visit today, we recorded the following information about you: Jorge Hobson MD 11/12/2024 7:24 AM Signed You tested positive for COVID-19. You can go back to your normal activities when, for at least 24 hours, both are true: - Your symptoms are getting better overall, and - You have not had a fever (and are not using fever-reducing medication). When you go back to your normal activities, take added precaution over the next 5 days, such as taking additional steps for basin cleaner air, hygiene, masks, physical distancing, and/or testing when you will be around other people indoors. You may be eligible for antiviral treatment, but there are interactions with a couple of you medications. Please call your doctor's office to schedule a virtual visit to discuss your eligibility if you are interested in taking Paxlovid. Please contact us if your symptoms are worsening or not improving. Ted Dave MA 11/12/2024 8:25 AM Signed Pt was notified of the results. Pt verbalized understanding. Ted Dave MA Allergies As of Date: 11/12/2024 Noted Allergy Reaction FISH CONTAINING PRODUCTS 04/29/2019 4 - Hives 7 - Swelling TETANUS VACCINES AND TOXOID 04/30/2009 Comments: Local Reaction Date Reviewed: 06/11/2024 Reviewed by: Mckenzie Flores MA - Fully Assessed Reason for Visit: Results [95] Cmt: COVID+ Prescriptions as of 11/12/2024 - atorvastatin (LIPITOR) 40 mg tablet Take 1 tablet by mouth once daily. - metoprolol succinate ER (TOPROL XL) 25 mg 24 hr tablet Take 1 tablet by mouth once daily. - hydroCHLOROthiazide 25 mg tablet Take 1 tablet by mouth once daily. - amLODIPine (NORVASC) 10 mg tablet Take 1 tablet by mouth once daily. - clopidogrel (PLAVIX) 75 mg tablet Take 1 tablet by mouth once daily. - metFORMIN (GLUCOPHAGE) 500 mg tablet Take 2 tablets by mouth two times a day with meals. - losartan (COZAAR) 100 mg tablet Take 1 tablet by mouth once daily. - levothyroxine (LEVOXYL) 50 mcg tablet Take 1 tablet by mouth once daily. Take on empty stomach. For Thyroid - blood sugar diagnostic (BLOOD GLUCOSE TEST) test strip Test blood sugar(s) 2 times daily. Dx: Type 2 DM - Uncontrolled E11.65 Insulin: No - Lancets lancets Test blood sugar(s) 2 times daily. Dx: Type 2 DM - Uncontrolled E11.65 Insulin: No - TRUE METRIX GLUCOSE METER Glucose Meter of Choice - Kit - Dx Type 2 DM - Uncontrolled E11.65 - Miscellaneous Medical Supply 1 Each once daily. - MULTIVITAMIN ORAL Take by mouth once daily. - aspirin, enteric coated (ASPIRIN, ENTERIC COATED) 81 mg EC tablet take 1 tablet by mouth once daily Problem List As Of Date 11/12/2024 Noted Resolved CALCANEAL SPUR [M77.30] 09/22/2008 Primary hypertension [I10] 10/06/2008 Class 2 obesity with body mass index (BMI) of 3*10/06/2008 GANGLION OF JOINT [M67.40] 10/21/2008 IMPAIRED FASTING GLUCOSE [R73.01] 04/28/2009 Asthma [J45.909] 09/27/2009 Abnormality of Gait [R26.9] 04/27/2010 Attention deficit disorder of adult [F98.8] 10/23/2011 Pain in joint, shoulder region [M25.519] 09/05/2012 Adnexal mass [N94.89] 04/29/2013 Pain in left foot [M79.672] 08/17/2015 Pain in right foot [M79.671] 08/17/2015 Bilateral low back pain without sciatica [M54.5*08/17/2015 Diabetes mellitus (HCC) [E11.9] 10/10/2016 Plantar fascial fibromatosis of both feet [M72.*04/16/2017 TIA (transient ischemic attack) [G45.9] 01/16/2019 03/10/2019 Visual loss, both eyes [H54.3] 01/27/2019 Occipital stroke (HCC) [I63.9] 01/16/2019 PFO (patent foramen ovale) [Q21.12] 01/23/2020 12/25/2022 Jaw pain [R68.84] 05/12/2020 History of CVA (cerebrovascular accident) [Z86.*05/12/2020 Snoring [R06.83] 05/12/2020 Family history of sleep apnea [Z82.0] 05/12/2020 Depression [F32.A] 05/12/2020 Preop cardiovascular exam [Z01.810] 03/31/2021 Acquired hypothyroidism [E03.9] 04/20/2021 Hypertension [I10] 06/08/2022 Mixed hyperlipidemia [E78.2] 06/08/2022 Cerebrovascular accident (CVA) due to embolism *07/21/2022 Leg length discrepancy [M21.70] 02/05/2023 Low vision right eye category 1, low vision lef*04/08/2024 Homonymous hemianopsia, left [H53.462] 04/08/2024 Presbyopia [H52.4] 04/08/2024 Encounter Status:Closed by TED DAVE on 11/12/24 [facility] CNOVon 11-11-2024 CNOV Office Visit ([facility] ) -- MARTHA VENEGAS ([id number]) 1970 F Date Time Provider Department 11/11/24 2:45 PM ENEIDA LOYOLA [facility] During your visit today, we recorded the following information about you: Temperature Pulse Respiration Blood pressure 97.8 degrees 87/minute 18/minute 128/82 Weight 89.2 kg Eneida Loyola PA 11/11/2024 3:21 PM Signed This note was created using Mambo[employer]. Subjective Martha Venegas is a 54 year old female. HPI 54-year-old female presents for cough, chest congestion, nasal congestion, fevers x 2 days. Patient states she started getting sick 2 days ago. She has a cough. She states that she today she coughed up phlegm tinged with sputum. She states that her phlegm is very sticky. She states she has some shortness of breath with cough. She states that she has had some fevers the past 2 days. Tmax 104 ?F yesterday. She has not taken any Tylenol or Motrin today. She has not had a fever yet today. She states she has had some nasal congestion. Patient is a diabetic and states her blood sugar was elevated 2 days ago, states it is still slightly elevated today, but not as high. She states this morning glucose was 186. She has been taking medication as prescribed. Patient denies any chest pain. She did have an episode of vomiting this morning with coughing. No diarrhea. No abdominal pain. She took some ZzzQuil last night without much improvement. PAST MEDICAL HISTORY Diagnosis Date Asthma Seasonal, uses Albuterol once a month Diabetes mellitus (HCC) Family history of sleep apnea History of stroke Hypertension Mixed hyperlipidemia PFO (patent foramen ovale) Status post placement of implantable loop recorder Stroke (cerebrum) (HCC) TMJ arthritis PAST SURGICAL HISTORY Procedure Laterality Date OOPHORECTOMY PARTIAL/TOTAL UNI/BI 2006 Right PAST SURGICAL HISTORY OF 2007 Excision abdominal mass PAST SURGICAL HISTORY OF 10/14/2008 right foot soft tissue mass excision PAST SURGICAL HISTORY OF 11/03/2010 Left planter fasciotomy PAST SURGICAL HISTORY OF 12/11/2022 PFO VAGINAL HYSTERECTOMY UTERUS 250 GM/< 2006 Hysterectomy, vaginal XTRNL PT ACTIV ECG TRANSMIS W/GABRIELE ALLERGIES Fish Containing Products and Tetanus Vaccines And Toxoid MEDICATIONS atorvastatin (LIPITOR) 40 mg tablet Take 1 tablet by mouth once daily. metoprolol succinate ER (TOPROL XL) 25 mg 24 hr tablet Take 1 tablet by mouth once daily. hydroCHLOROthiazide 25 mg tablet Take 1 tablet by mouth once daily. amLODIPine (NORVASC) 10 mg tablet Take 1 tablet by mouth once daily. clopidogrel (PLAVIX) 75 mg tablet Take 1 tablet by mouth once daily. metFORMIN (GLUCOPHAGE) 500 mg tablet Take 2 tablets by mouth two times a day with meals. losartan (COZAAR) 100 mg tablet Take 1 tablet by mouth once daily. levothyroxine (LEVOXYL) 50 mcg tablet Take 1 tablet by mouth once daily. Take on empty stomach. For Thyroid blood sugar diagnostic (BLOOD GLUCOSE TEST) test strip Test blood sugar(s) 2 times daily. Dx: Type 2 DM - Uncontrolled E11.65 Insulin: No Lancets lancets Test blood sugar(s) 2 times daily. Dx: Type 2 DM - Uncontrolled E11.65 Insulin: No TRUE METRIX GLUCOSE METER Glucose Meter of Choice - Kit - Dx Type 2 DM - Uncontrolled E11.65 Miscellaneous Medical Supply 1 Each once daily. MULTIVITAMIN ORAL Take by mouth once daily. aspirin, enteric coated (ASPIRIN, ENTERIC COATED) 81 mg EC tablet take 1 tablet by mouth once daily FAMILY HISTORY Problem Relation Age of Onset Diabetes Mother Diabetes Maternal Grandmother Diabetes Paternal Grandmother other (attention deficit) Son Diabetes Maternal Uncle other (no cardiac hx per pt) Other Social History Tobacco Use Smoking status: Never Smokeless tobacco: Never Vaping Use Vaping status: Never Used Substance Use Topics Alcohol use: Yes Comment: rare Drug use: No Review of Systems Constitutional: Positive for chills, fatigue and fever. HENT: Positive for congestion. Negative for ear pain and sore throat. Respiratory: Positive for cough and shortness of breath. Cardiovascular: Negative for chest pain. Gastrointestinal: Negative for diarrhea and vomiting. Musculoskeletal: Positive for myalgias. Objective BP 128/82 Pulse 87 Temp 36.6 ?C (97.8 ?F) (Tympanic) Resp 18 Wt 89.2 kg (196 lb 10.4 oz) SpO2 97% BMI 33.76 kg/m? Physical Exam Vitals and nursing note reviewed. Constitutional: General: She is not in acute distress. Appearance: Normal appearance. She is not toxic-appearing. HENT: Right Ear: Tympanic membrane and ear canal normal. Left Ear: Tympanic membrane and ear canal normal. Nose: Congestion present. Mouth/Throat: Mouth: Mucous membranes are moist. Pharynx: Oropharynx is clear. Eyes: Conjunctiva/sclera: Conjunctivae normal. Cardiovascular: Rate and Rhythm: Normal rate and (more content not included)... Normal [facility] COVID AND INFLUENZA A/B AND RSV PCR, ROUTINEon 11-11-2024 SARS-CoV-2 (COVID-19) RNA STEVO+probe Ql (Unsp spec) SARS-COV-2 (AGENT OF COVID-19) RNA: Detected INFLUENZA A RNA: Not detected INFLUENZA B RNA: Not detected RESPIRATORY SYNCYTIAL VIRUS (RSV) RNA: Not detected Abnormal [facility] Comment on above: Performed By: #### C VFLRS ####[facility] [id number] [place] [address] [place] XR CHEST 2V FRONTAL/LATon XR CHEST 2V FRONTAL/LAT * * *Final Report* * * DATE OF EXAM: Nov 11 2024 3:05PM WOX [id number] - XR CHEST 2V FRONTAL/LAT / PROCEDURE REASON: Acute cough * * * * Physician Interpretation * * * * EXAMINATION: CHEST RADIOGRAPH (2 VIEW FRONTAL and LATERAL) PATIENT/TECHNOLOGIST PROVIDED HISTORY: cough, chest and head congestion with fever for 2 days CLINICAL HISTORY: 54 years old Female with Acute cough MQ: XC2_6 EXAM DATE/TIME: 11/11/2024 3:05 PM COMPARISON: Chest radiograph(s) dated 01/16/2019 RESULT: Lines, tubes, and devices: Implantable cardiac loop recorder in the anterior chest wall. Lungs and pleura: No consolidation, pleural effusion or pneumothorax. Cardiomediastinal silhouette: Normal cardiomediastinal silhouette. Bones and soft tissues: Mild endplate degenerative changes in the thoracic spine. IMPRESSION: No acute radiographic abnormality. Case Repairer: STEFANIE Transcribe Date/Time: Nov 11 2024 3:06P Dictated by : KOMAL GALE DO This examination was interpreted and the report reviewed and electronically signed by: KOMAL GALE DO on Nov 11 2024 3:08PM EST [id number] Normal [facility] XR Chest PA and Lateralon IMPRESSION: No acute radiographic abnormality. Case Repairer: [employer] Transcribe Date/Time: Nov 11 2024 3:06P Dictated by : KOMAL GALE DO This examination was interpreted and the report reviewed and electronically signed by: KOMAL GALE DO on Nov 11 2024 3:08PM EST DIVISION OF RADIOLOGY * * *Final Report* * * DATE OF EXAM: Nov 11 2024 3:05PM WOX [id number] - XR CHEST 2V FRONTAL/LAT / PROCEDURE REASON: Acute cough * * * * Physician Interpretation * * * * EXAMINATION: CHEST RADIOGRAPH (2 VIEW FRONTAL & LATERAL) PATIENT/TECHNOLOGIST PROVIDED HISTORY: cough, chest and head congestion with fever for 2 days CLINICAL HISTORY: 54 years old Female with Acute cough MQ: XC2_6 EXAM DATE/TIME: 11/11/2024 3:05 PM COMPARISON: Chest radiograph(s) dated 01/16/2019 RESULT: Lines, tubes, and devices: Implantable cardiac loop recorder in the anterior chest wall. Lungs and pleura: No consolidation, pleural effusion or pneumothorax. Cardiomediastinal silhouette: Normal cardiomediastinal silhouette. Bones and soft tissues: Mild endplate degenerative changes in the thoracic spine. DIVISION OF RADIOLOGY Provider, Christina richter [place] - 11/11/2024 * * *Final Report* * * DATE OF EXAM: Nov 11 2024 3:05PM WOX [id number] - XR CHEST 2V FRONTAL/LAT / PROCEDURE REASON: Acute cough * * * * Physician Interpretation * * * * EXAMINATION: CHEST RADIOGRAPH (2 VIEW FRONTAL & LATERAL) PATIENT/TECHNOLOGIST PROVIDED HISTORY: cough, chest and head congestion with fever for 2 days CLINICAL HISTORY: 54 years old Female with Acute cough MQ: XC2_6 EXAM DATE/TIME: 11/11/2024 3:05 PM COMPARISON: Chest radiograph(s) dated 01/16/2019 RESULT: Lines, tubes, and devices: Implantable cardiac loop recorder in the anterior chest wall. Lungs and pleura: No consolidation, pleural effusion or pneumothorax. Cardiomediastinal silhouette: Normal cardiomediastinal silhouette. Bones and soft tissues: Mild endplate degenerative changes in the thoracic spine. IMPRESSION IMPRESSION: No acute radiographic abnormality. Case Repairer: PSCB Transcribe Date/Time: Nov 11 2024 3:06P Dictated by : KOMAL GALE DO This examination was interpreted and the report reviewed and electronically signed by: KOMAL GALE DO on Nov 11 2024 3:08PM [facility] Radiology Study observation (narrative) [facility] XR Chest PA and LateralOrder ed By: Ccf Provider on 11-11-2024 [facility] CNCOon 06-11-2024 CNCO Letter Text Normal [facility] CNOVon 06-11-2024 CNOV Office Visit ([facility]) -- MARTHA VENEGAS ([id number]) 1970 F Date Time Provider Department 06/11/24 2:20 PM MERARI CAMARILLO During your visit today, we recorded the following information about you: Pulse Respiration Blood pressure Weight 72/minute 16/minute 180/103 93 kg Height 1.626 m Mckenzie Flores MA 06/11/2024 2:18 PM Signed Patient has no cardiac complaints today. Merari Epps CMA, MD 06/11/2024 2:42 PM Signed Restart taking medications Monitor home blood pressures and call us with readings in 4 weeks Once blood pressures improved, restart regular exercise program with goal of walking 30 minutes, 5 days weekly Merari Camarillo MD 06/11/2024 4:14 PM Signed HISTORY OF PRESENT ILLNESS: Ms. Venegas is a 53 year old female with a history of obesity, hypertension, hyperlipidemia, diabetes and CVA in 01/21 who presents to cardiology clinic for routine follow-up. Patient reports that in January 2019, she started having episodes of confusion where she would get lost while at work or while driving around town. 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 She was found to have hemianopsia and was taken to the ER for further evaluation. She did have an MRI and MRA of the brain revealing scattered areas of acute infarct in the right occipital lobe with an occluded right BOTTOM PAINTER. She was admitted to [facility] for further evaluation. Of note, prior to her hospitalization, her diabetes was not optimally controlled as her hemoglobin A1c was 10, her blood pressures were suboptimal ranging in the 150s/90s-100s, and her lipids were not optimally controlled and she was not on statin therapy. During her hospitalization, her medications were adjusted with improved blood sugar and blood pressure control. She did have a TTE and a LB performed revealing normal LV systolic function without evidence of intracardiac thrombus or masses but with evidence of a PFO. Since her hospitalization, she did wear an event monitor revealing no evidence of arrhythmias. She has since undergone a loop recorder implantation in 08/23 which has not revealed any evidence of atrial arrhythmias. Patient was referred to [facility] for PFO closure. She did undergo attempted procedure on 12/11/2022 but was not found to have any evidence of intracardiac shunting. In discussion with the patient in the office today, she reports doing well from a cardiac standpoint. She denies any complaints of chest pain, dyspnea on exertion, orthopnea, paroxysmal nocturnal dyspnea, lower extremity edema, presyncope, syncope, or palpitations. She does not engage in any regular exercise but has started hiking twice a day with her family. 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 Of note, patient reports that she has transition to working third shift in the last 6 to 8 weeks. She also became depressed about the number of pills she was taking. Due to the combination of the above, she has not been compliant with any of her medications for the last 6 weeks and has been taking them only approximately 10 to 20% of the time. In addition, she has not been checking her blood pressure regularly. When she was compliant with her medications and was checking her blood pressures back in April 2024, she reports they were very well-controlled in the 110s-120s/70s. PAST MEDICAL HISTORY No date: Asthma Comment: Seasonal, uses Albuterol once a month No date: Diabetes mellitus (HCC) No date: Family history of sleep apnea No date: History of stroke No date: Hypertension No date: Mixed hyperlipidemia No date: PFO (patent foramen ovale) No date: Status post placement of implantable loop recorder No date: Stroke (cerebrum) (HCC) No date: TMJ arthritis PAST SURGICAL HISTORY 2006: OOPHORECTOMY PARTIAL/TOTAL UNI/BI Comment: Right 2008: PAST SURGICAL HISTORY OF Comment: Excision abdominal mass 10/14/2008: PAST SURGICAL HISTORY OF Comment: right foot soft tissue mass excision 11/03/2010: PAST SURGICAL HISTORY OF Comment: Left planter fasciotomy 12/11/2022: PAST SURGICAL HISTORY OF Comment: PFO 2007: VAGINAL HYSTERECTOMY UTERUS 250 GM/< Comment: Hysterectomy, vaginal 08/15/2019: XTRNL PT ACTIV ECG TRANSMIS W/GABRIELE MEDICATIONS: hydroCHLOROthiazide 25 mg tablet Take 1 tablet by mouth once daily. amLODIPine (NORVASC) 10 mg tablet Take 1 tablet by mouth once daily. clopidogrel (PLAVIX) 75 mg tablet Take 1 tablet by mouth once daily. metFORMIN (GLUCOPHAGE) 500 mg tablet Take 2 tablets by mouth two times a day with meals. atorvastatin (LIPITOR) 40 mg tablet Take 1 tablet by mouth once daily. (more content not included)... Normal [facility] ALBUMIN/CREATININE RATIO, UR INEon 04-14-2024 Albumin DL <= 20 mg/L (U) [Mass/Vol] 62.6 mg/L Normal [facility] Comment on above: Order Comment: Speci men Type: BLOOD SPECIMEN Ordering Facility: [facility] Address: [address] [place] [address] Performed By: #### 5 5454-3 #### [facility] CLIA [id number] [address] [place] [address] [place] [facility] Albumin/Creatinine (U) [Mass ratio] 24 mg/g Normal <30 [facility] Comment on above: Order Comment: Speci men Type: BLOOD SPECIMEN Ordering Facility: [facility] Address: [address] [place] [address] Result Comment: Adul t Male and Female Nephrotic Criteria: <30 mg/g is considered normal to mildly increased 30-300 mg/g is considered moderately increased >300 mg/g is considered severely increased KDIGO. (2013). KDIGO 2012 Clinical Practice Guideline for the Evaluation and Management of Chronic Kidney Disease. Official Journal of the International Society of Nephrology, 3(1), 1-150. Performed By: #### 5 5454-3 #### [facility] CLIA [id number] [address] [place] [address] [place] Creatinine (U) [Mass/Vol] 256.1 mg/dL Normal 20.0-300.0 [facility] Comment on above: Order Comment: Speci men Type: BLOOD SPECIMEN Ordering Facility: [facility] Address: [address] [place] [address] Performed By: #### 5 5454-3 #### [facility] CLIA [id number] [address] [place] [address] [place] Comprehensive metabolic 2000 panelon 04-14-2024 Albumin [Mass/Vol] 4.1 g/dL Normal 3.9-4.9 [facility] Comment on above: Order Comment: Speci men Type: BLOOD SPECIMEN Ordering Facility: [facility] Address: [address] [place] [address] Performed By: #### 5 5454-3 #### [facility] CLIA [id number] [address] [place] [address] [place] ALP [Catalytic activity/Vol] 87 U/L Normal 34-123 [facility] Comment on above: Order Comment: Speci men Type: BLOOD SPECIMEN Ordering Facility: [facility] Address: [address] [place] [address] Performed By: #### 5 5454-3 #### [facility] CLIA [id number] [address] [place] [address] [place] ALT [Catalytic activity/Vol] 15 U/L Normal 7-38 [facility] Comment on above: Order Comment: Speci men Type: BLOOD SPECIMEN Ordering Facility: [facility] Address: [address] [place] [address] Performed By: #### 5 5454-3 #### [facility] CLIA [id number] [address] [place] [address] [place] Anion gap [Moles/Vol] 12 mmol/L Normal 8-15 [facility] Comment on above: Order Comment: Speci men Type: BLOOD SPECIMEN Ordering Facility: [facility] Address: [address] [place] [address] Performed By: #### 5 5454-3 #### [facility] CLIA [id number] [address] [place] [address] [place] AST [Catalytic activity/Vol] 10 U/L Low 13-35 [facility] Comment on above: Order Comment: Speci men Type: BLOOD SPECIMEN Ordering Facility: [facility] Address: [address] [place] [address] Performed By: #### 5 5454-3 #### [facility] CLIA [id number] [address] [place], [place] [address] [place] Bilirubin [Mass/Vol] 0.5 mg/dL Normal 0.2-1.3 [facility] Comment on above: Order Comment: Speci men Type: BLOOD SPECIMEN Ordering Facility: [facility] Address: [address] [place] [address] Performed By: #### 5 5454-3 #### [facility] CLIA [id number] [address] [place] [address] [place] Calcium [Mass/Vol] 9.7 mg/dL Normal 8.5-10.2 [facility] Comment on above: Order Comment: Speci men Type: BLOOD SPECIMEN Ordering Facility: [facility] Address: [address] [place] [address] Performed By: #### 5 5454-3 #### [facility] CLIA [id number] [address] [place] [address] [place] Chloride [Moles/Vol] 97 mmol/L Low 98-107 [facility] Comment on above: Order Comment: Speci men Type: BLOOD SPECIMEN Ordering Facility: [facility] Address: [address] [place] [address] Performed By: #### 5 5454-3 #### [facility] CLIA [id number] [address] [place] [address] [place] CO2 [Moles/Vol] 27 mmol/L Normal 22-30 [facility] Comment on above: Order Comment: Speci men Type: BLOOD SPECIMEN Ordering Facility: [facility] Address: [address] [place] [address] Performed By: #### 5 5454-3 #### [facility] CLIA [id number] [address] [place] [address] [place] Creatinine [Mass/Vol] 0.75 mg/dL Normal 0.58-0.96 [facility] Comment on above: Order Comment: Speci men Type: BLOOD SPECIMEN Ordering Facility: [facility] Address: [address] [place] [address] Performed By: #### 5 5454-3 #### [facility] CLIA [id number] [address] [place] [address] [place] Creatinine and Glomerular filtration rate.predicted panel (S/P/Bld) 94 mL/min/1.73m??? Normal >=60 [facility] Comment on above: Order Comment: Zane lorenzo Type: BLOOD SPECIMEN Ordering Facility: [facility] Address: [address] [place] [address] Result Comment: Crispin mated Glomerular Filtration Rate (eGFR) is calculated using the 2020 CKD-EPI creatinine equation. This equation utilizes serum creatinine, sex, and age as parameters. The creatinine assay has traceable calibration to isotope dilution-mass spectrometry. Refer to KDIGO guidelines for clinical interpretation. In patients with unstable renal function, e.g. those with acute kidney injury, the eGFR may not accurately reflect actual GFR. Performed By: #### 5 5454-3 #### [facility] CLIA [id number] [address] [place] [address] [place] Glucose [Mass/Vol] 277 mg/dL High 74-99 [facility] Comment on above: Order Comment: Zane lorenzo Type: BLOOD SPECIMEN Ordering Facility: [facility] Address: [address] [place] [address] Result Comment: The [place] Diabetes Association (ADA) provides guidance for cutoff values for fasting glucose and random glucose. The ADA defines fasting as no caloric intake for at least 8 hours. Fasting plasma glucose results between 100 to 125 mg/dL indicate increased risk for diabetes (prediabetes). Fasting plasma glucose results greater than or equal to 126 mg/dL meet the criteria for diagnosis of diabetes. In the absence of unequivocal hyperglycemia, results should be confirmed by repeat testing. In a patient with classic symptoms of hyperglycemia or hyperglycemic crisis, random plasma glucose results greater than or equal to 200 mg/dL meet the criteria for diagnosis of diabetes. Reference: Standards of Medical Care in Diabetes 2016, [place] Diabetes Association. Diabetes Care. 2016.39(Suppl 1). Performed By: #### 5 5454-3 #### [facility] CLIA [id number] [address] [place] [id number] [address] [place] Potassium [Moles/Vol] 3.6 mmol/L Low 3.7-5.1 [facility] Comment on above: Order Comment: Speci men Type: BLOOD SPECIMEN Ordering Facility: [facility] Address: [address] [place] [address] Performed By: #### 5 5454-3 #### [facility] CLIA [id number] [address] [place] [address] [place] Protein [Mass/Vol] 6.9 g/dL Normal 6.3-8.0 [facility] Comment on above: Order Comment: Speci men Type: BLOOD SPECIMEN Ordering Facility: [facility] Address: [address] [place] [address] Performed By: #### 5 5454-3 #### [facility] CLIA [id number] [address] [place] [address] [place] Sodium [Moles/Vol] 136 mmol/L Normal 136-144 [facility] Comment on above: Order Comment: Speci men Type: BLOOD SPECIMEN Ordering Facility: [facility] Address: [address] [place] [address] Performed By: #### 5 5454-3 #### [facility] CLIA [id number] [address] [place] [address] [place] Urea nitrogen [Mass/Vol] 14 mg/dL Normal 7-21 [facility] Comment on above: Order Comment: Speci men Type: BLOOD SPECIMEN Ordering Facility: [facility] Address: [address] [place] [address] Performed By: #### 5 5454-3 #### [facility] CLIA [id number] [address] [place] [address] [place] HIV 1+2 Ab IA Qlon 4 HIV 1 and 2 Ab IA.rapid Nom (S/P/Bld) Normal [facility] Comment on above: Order Comment: Speci men Type: BLOOD SPECIMEN Ordering Facility: [facility] Address: [address] [place] [address] Result Comment: Test not indicated. Performed By: #### 3 1201-7 #### [facility] CLIA [id number] [address] [place] [address] [place] HIV 1+2 Ab+HIV1 p24 Ag IA Ql Non-Reactive Normal Nonreactive [facility] Comment on above: Order Comment: Speci men Type: BLOOD SPECIMEN Ordering Facility: [facility] Address: [address] [place] [address] Performed By: #### 3 1201-7 #### [facility] CLIA [id number] [address] [place] [address] [place] HIV immunoassay testing algorithm interpretation (S/P/Bld) [Interp] Normal [facility] Comment on above: Order Comment: Speci men Type: BLOOD SPECIMEN Ordering Facility: [facility] Address: [address] [place] [address] Result Comment: No e vidence of HIV-1 or HIV-2 infection. Should recent infection be suspected, repeat testing may be considered 2-3 weeks after this draw. [place] Rev. Code 3701.243(E): This information has been disclosed to you from confidential records protected from disclosure by state law. ???You shall make no further disclosure of this information without the specific, written, and informed release of the individual to whom it pertains or as otherwise permitted by state law. A general authorization for the release of medical or other information is not sufficient for the purpose of the release of HIV test results or diagnoses. Performed By: #### 3 1201-7 #### [facility] CLIA [id number] [address] [place] [address] [place] HbA1c (Bld)on 04-14-2024 Average glucose Estimated from glycated hemoglobin (Bld) [Mass/Vol] 280 mg/dL Normal [facility] Comment on above: Order Comment: Speci men Type: BLOOD SPECIMEN Ordering Facility: [facility] Address: [address] [place] [address] Result Comment: eAG: (Estimated average glucose) is a calculated value from HgbA1c and is sales representative business courses of the average blood glucose level in the last 2-3 month period. Performed By: #### 5 5454-3 #### [facility] CLIA [id number] [address] [place] [address] [place] HbA1c (Bld) [Mass fraction] 11.4 % High 4.3-5.6 [facility] Comment on above: Order Comment: Speci men Type: BLOOD SPECIMEN Ordering Facility: [facility] Address: [address] [place] [address] Result Comment: [place] Diabetes Association guidelines indicate that patients with HgbA1c in the range 5.7-6.4% are at increased risk for development of diabetes, and intervention by lifestyle modification may be beneficial. HgbA1c greater or equal to 6.5% is considered diagnostic of diabetes. Performed By: #### 5 5454-3 #### [facility] IA [id number] [address] [place] [address] [place] TSH SerPl-aCncon 04-14-2024 TSH Qn 1.230 m[IU]/L Normal 0.270-4.200 [facility] Comment on above: Order Comment: Speci men Type: BLOOD SPECIMEN Ordering Facility: [facility] Address: [address] [place] [address] Performed By: #### 5 5454-3 #### [facility] IA [id number] [address] [place] [address] [place] HEMOGLOBIN A1C (POC)on 01-07 HbA1c (Bld) [Mass fraction] 10.5 % Abnormal 4.3 - 5.6 % [facility] Absolute lymphocyte counton 10-22-2022 Lymphocytes Auto (Unsp spec) [#/Vol] 2.28 10*3/uL 0.83-4.51 [facility] Work Phone: Basophil percentageon 2021 Basophils/100 WBC (Bld) 0.2 % 0-1 [facility] Work Phone: Chloride [Moles/Vol] 105 mmol/L 98-107 [facility] Work Phone: Eosinophils/100 WBC (Bld) 1.6 % 0-5 [facility] Work Phone: Glucose [Mass/Vol] 183 mg/dL 74-106 [facility] Work Phone: Comment on above: Fasting Glucose resu lt greater than or equal to 126 mg/dL suggests DIABETES MELLITUS per A.D.A. criteria. Neutrophils (Bld) [#/Vol] 1.3 10*3/uL 2.0-7.7 [facility] Work Phone: Neutrophils/100 WBC (Bld) 30.4 % 47-70 [facility] Work Phone: Potassium [Moles/Vol] 3.5 mmol/L 3.5-5.1 [facility] Work Phone: Sodium [Moles/Vol] 140 mmol/L 136-145 [facility] Work Phone: WBC (Bld) [#/Vol] 4.4 10*3/uL 4.4-11.0 [facility] Work Phone: Blood erythrocytes count (nu mber/volume)on 10-22-2022 RBC (Bld) [#/Vol] 5.13 10*6/uL 4.2-5.4 [facility] Work Phone: Blood hemoglobin measurement (mass/volume)on 10-22-2022 Hemoglobin (Bld) [Mass/Vol] 13.4 g/dL 12.0-15.0 [facility] Work Phone: Blood lymphocytes/100 leukoc yteson 10-22-2022 Lymphocytes/100 WBC (Bld) 52.1 % 19-41 [facility] Work Phone: Blood monocytes/100 leukocyt eson 10-22-2022 Monocytes/100 WBC (Bld) 15.5 % 0-10 [facility] Work Phone: [phone] Blood platelet mean volumeon 10-22-2022 Platelet mean volume (Bld) [Entitic vol] 10.8 fL 6.2-12.0 [facility] Work Phone: [phone] Determination of erythrocyte mean corpuscular volume (MCV)on 10-22-2022 MCV (RBC) [Entitic vol] 82.7 fL 81-99 [facility] Work Phone: [phone] Hematocrit Auto (Bld) [Volum e fraction]on 10-22-2022 Hematocrit (Bld) [Volume fraction] 42.4 % 37-47 [facility] Work Phone: [phone] Laboratory - Chemistry and C hemistry - challengeon 10-22-2022 CO2 [Moles/Vol] 30.0 mmol/L 21.0-32.0 [facility] Work Phone: [phone] Urea nitrogen/Creatinin e [Mass ratio] 16.3 mg/mg 10-20 [facility] Work Phone: [phone] Laboratory - Hematology and Cell countson 10-22-2022 Erythrocyte distribution width (RBC) [Entitic vol] 47.3 fL 35.1-43.9 [facility] Work Phone: [phone] Erythrocyte distribution width (RBC) [Ratio] 15.5 % 11.6-14.6 [facility] Work Phone: [phone] Immature granulocytes/100 WBC (Bld) 0.200 % 0.0-0.9 [facility] Work Phone: [phone] Comment on above: IG% - Immature Granu locytes (promyelocytes, myelocytes and metamyelocytes) > 1% indicates that a LEFT SHIFT is Present. MCH (RBC) [Entitic mass] 26.1 pg 27.0-32.0 [facility] Work Phone: [phone] Nucleated RBC/100 WBC (Bld) [Ratio] 0 % 0-5 [facility] Work Phone: [phone] MCHC Auto (RBC) [Mass/Vol]on 10-22-2022 MCHC (RBC) [Mass/Vol] 31.6 g/dL 32-36 [facility] Work Phone: No Panel Informationon 10-22 Estimated Creatinine Clearance Calc 56.67 ml/min [facility] Work Phone: Estimated GFR (MDRD) Amer 76 mL/min >60 [facility] Work Phone: Comment on above: GFR Calc Estimated GFR (MDRD) Non-Af Amer 63 mL/min >60 [facility] Work Phone: Comment on above: Non- GFR Calc Troponin I High Sensitivity 8 pg/mL 3.0-54.0 [facility] Work Phone: Comment on above: Please Note: New Ester t Units and Gender Specific Reference Ranges. For more information see Policy Stat Procedure [place] High Sensitivity Troponin (TNIH) and attachments. Platelets bldon 10-22-2022 Platelets (Bld) [#/Vol] 291 10*3/uL 150-450 [facility] Work Phone: Serum or plasma calcium loulou urement (mass/volume)on 10-22-2022 Calcium [Mass/Vol] 8.6 mg/dL 8.5-10.1 [facility] Work Phone: Serum or plasma creatinine m easurement (mass/volume)on 10-22-2022 Creatinine [Mass/Vol] 0.98 mg/dL 0.55-1.02 [facility] Work Phone: Comment on above: The validity of the calculated GFR & GFRAA in patients over 70 years has not been determined. Clinical correlation is essential. Serum or plasma urea nitroge n measurement (mass/volume)on 10-22-2022 Urea nitrogen [Mass/Vol] 16 mg/dL - [facility] Work Phone: [phone] Thin prep Papanicolaou smear with manual screeningon 10-22-2022 Thin prep Papanicolaou smear with manual screening 5 5-15 [facility] Work Phone: [phone] Influenza virus A and B RNA and SARS-CoV-2 (COVID-19) N gene panel STEVO+probe (Resp)on 09-06-2022 FLUAV RNA STEVO+probe Ql (Unsp spec) Negative Negative for Influenza A by RT-PCR [facility] FLUBV RNA STEVO+probe Ql (Unsp spec) Negative Negative for Influenza B by RT-PCR [facility] SARS-CoV-2 (COVID-19) RNA STEVO+probe Ql (Resp) SARS-CoV-2 (Agent of COVID-19) Not Detected by RT-PCR or equivalent method. Not Detected [facility] Basic Metabolic Panelon 01-03 Calcium mass conc 9.2 mg/dL Normal 8.4-10.4 [facility] Comment on above: Performed By: #### H EMDF, HA1C2, LIPD2, BMP3 #### [address] Glucose mass conc 110 mg/dL High 70-100 [facility] Comment on above: Performed By: #### H EMDF, HA1C2, LIPD2, BMP3 #### [address] Urea nitrogen mass conc 24 mg/dL High 7-20 [facility] Comment on above: Performed By: #### H EMDF, HA1C2, LIPD2, BMP3 #### [address] Anion gap molar conc 12 Normal [facility] Comment on above: Performed By: #### H EMDF, HA1C2, LIPD2, BMP3 #### [address] [address] [place], [place] CO2 molar conc 31 mmol/L High 22-30 [facility] Comment on above: Performed By: #### H EMDF, HA1C2, LIPD2, BMP3 #### [address] Creatinine mass conc 1.17 mg/dL Normal 0.52-1.25 [facility] Comment on above: Performed By: #### H EMDF, HA1C2, LIPD2, BMP3 #### [address] [address] [place], [place] GFR/1.73 sq M predicted among blacks MDRD vol rate/area (S/P/Bld) 59.2 mL/min/{1.73_m2} Normal >60 [facility] Comment on above: Performed By: #### H EMDF, HA1C2, LIPD2, BMP3 #### [facility] [address] [place] [address] GFR/1.73 sq M predicted among non-blacks MDRD vol rate/area (S/P/Bld) 48.9 mL/min/{1.73_m2} Normal >60 [facility] Comment on above: Result Comment: Sour ce- MDRD equation with creatinine calibration to IDMS(NKDEP) eGFR not recommended for drug dose adjustment Performed By: #### H EMDF, HA1C2, LIPD2, BMP3 #### [address] [address] Chloride molar conc 99 mmol/L Normal 98-107 [facility] Comment on above: Performed By: #### H EMDF, HA1C2, LIPD2, BMP3 #### [facility] [employer] [facility] [address] [place] [address] Potassium molar conc 3.3 mmol/L Low 3.5-5.1 [facility] Comment on above: Performed By: #### H EMDF, HA1C2, LIPD2, BMP3 #### [facility] [address] [place] [address] Sodium molar conc 142 mmol/L Normal 135-145 [facility] Comment on above: Performed By: #### H EMDF, HA1C2, LIPD2, BMP3 #### [facility] [address] [place] [address] Echo 2D/3D LB w/wo Contrast on 01-20-2019 Echo 2D/3D LB w/wo Contrast Patient Name: MARTHA VENEGAS Ultrasound Exam Date/Time 01/20/2019 15:03:36 EDT Exam Echo 2D/3D LB w/wo Contrast Ordering Physician MD ALIZA, LYNN Trent Accession Number [id number] Reason For Exam CVA Report TRANSESOPHAGEAL ECHOCARDIOGRAM PATIENT: Martha Venegas STUDY DATE: 01/20/2019 [facility]#: [id number] : 1970 AGE: 48 HT/WT: 170.2 cm (67 92.3 kg (203 in) lb) GENDER: F BP: 143 / 92 LOCATION: [facility] PATIENT Inpatient [facility] STATUS: *ORDERING PHYSICIAN: * Lynn Abrams *READING PHYSICIAN: * Lynn Abrams *ANIMAL HERDER: Jaskaran ALVARADO --- INDICATIONS: CVA. --- HISTORY: Echocardiography (01/17/2019). --- CONCLUSIONS SUMMARY: 1. Left ventricle: Systolic function is normal. The estimated ejection fraction is 55%. 2. Left atrium: No evidence of thrombus in the atrial cavity or appendage. 3. Atrial septum: Color Doppler shows a heneg-am-tegf shunt. There is evidence of right to left shunting with injection of agitated saline contrast. 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 No thrombus is identified within the aneurysm. 4. Aortic valve: There is redundancy of the non coronary cusp. Trileaflet. There is mild prolapse of the non coronary cusp resulting in a mild eccentric AI jet. There is mild, 1+ regurgitation. 5. Tricuspid valve: There is trivial, less than 1+ regurgitation. 6. Aorta: There is mild dilation of proximal ascending aorta. 7. Left upper pulmonary vein: The Doppler velocity and flow profile are normal. 8. Left lower pulmonary vein: The Doppler velocity and flow profile are normal. 9. Right upper pulmonary vein: The Doppler velocity and flow profile are normal. --- STUDY DATA: Transesophageal echocardiography was performed. Procedure: Initial setup. Surface ECG leads, blood pressure measurements, and pulse oximetric signals were monitored. Image quality was adequate. A transesophageal probe was inserted by the attending trick rodeo rider without difficulty. Intrvenous imaging enhancement Agitated saline was administered. Image quality was adequate. Complete 2D, complete spectral Doppler, and color flow Doppler images were acquired and archived for permanent storage and are available for subsequent review. Study status: Routine. Patient status: Inpatient. Location: [facility] laboratory. Consent: The risks, benefits, and alternatives to the procedure were explained to the patient and informed consent was obtained. Administered medications: Propofol. --- FINDINGS LEFT VENTRICLE: The cavity size is normal. Systolic function is normal. The estimated ejection fraction is 55%. RIGHT VENTRICLE: The cavity size is normal. Systolic function is normal. VENTRICULAR SEPTUM: Thickness is mildly increased. There is no evidence of a ventricular septal defect. LEFT ATRIUM: The atrium is normal in size. No evidence of thrombus in the atrial cavity or appendage. No evidence of thrombus in the atrial cavity or appendage. No spontaneous echo contrast is observed. The appendage is well visualized and of normal size. Emptying velocity is normal. RIGHT ATRIUM: The atrium is normal in size. ATRIAL SEPTUM: Well visualized. There is a small patent foramen ovale. Color Doppler shows a quoms-lt-bpcu shunt. There is evidence of right to left shunting with injection of agitated saline contrast. 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 No thrombus is identified within the aneurysm. MITRAL VALVE: Structurally normal valve. Leaflet separation is normal. Doppler: There is no significant regurgitation. AORTIC VALVE: There is redundancy of the non coronary cusp. Trileaflet. There is mild prolapse of the non coronary cusp resulting in a mild eccentric AI jet. Doppler: There is no stenosis. There is mild, 1+ regurgitation. TRICUSPID VALVE: Structurally normal valve. Leaflet separation is normal. Doppler: There is trivial, less than 1+ regurgitation. PULMONIC VALVE: No thickening. Cusp separation is normal. Doppler: There is no significant regurgitation. AORTA: The aorta is well visualized. There is no atheroma. There is no evidence for aneurysm. There is no evidence for dissection. There is mild dilation of proximal ascending aorta. PULMONARY ARTERY: The main pulmonary artery is normal in size. PERICARDIUM: There is no pericardial effusion. SYSTEMIC VEINS: Superior vena cava: The vessel is normal in size. PULMONARY VEINS: Well visualized. Left upper pulmonary vein: Normal sized. The Doppler velocity and flow profile are normal. Left lower pulmonary vein: Normal sized. The Doppler velocity and flow profile are normal. Right upper pulmonary vein: Normal sized. The Doppler velocity and flow profile are normal. Electronically signed by Lynn Abrams 01/20/2019 16:41 Final Dictated: 01/20/2019 4:41 pm Dictating Physician: MD ABRAMS MUHAMMAD A Signed Date and Time: 01/20/2019 4:41 pm Signed by: MD ABRAMS MUHAMMAD A Normal [facility] Glucose,Bedsideon 01-20-2019 Glucose mass conc 100 mg/dL Normal 70-100 [facility] [employer] [facility] Comment on above: Result Comment: Test performed by glucose meter. Results may be 10%-15% lower than serum/plasma values. (CLIA ID [id number]) Performed By: #### H EMDF, HA1C2, LIPD2, BMP3 #### [facility] [address] [place] [address] Glucose mass conc 114 mg/dL High 70-100 [facility] Comment on above: Result Comment: Test performed by glucose meter. Results may be 10%-15% lower than serum/plasma values. (CLIA ID [id number]) Performed By: #### H EMDF, HA1C2, LIPD2, BMP3 #### [facility] [address] [place] [address] Glucose,Bedsideon 01-19-2019 Glucose mass conc 117 mg/dL High 70-100 [facility] Comment on above: Result Comment: Test performed by glucose meter. Results may be 10%-15% lower than serum/plasma values. (CLIA ID [id number]) Performed By: #### H EMDF, HA1C2, LIPD2, BMP3 #### [facility] [address] [place] [address] Glucose mass conc 98 mg/dL Normal 70-100 [facility] Comment on above: Result Comment: Test performed by glucose meter. Results may be 10%-15% lower than serum/plasma values. (CLIA ID [id number]) Performed By: #### H EMDF, HA1C2, LIPD2, BMP3 #### [facility] [address] [place] [address] Glucose mass conc 111 mg/dL High 70-100 [facility] Comment on above: Result Comment: Test performed by glucose meter. Results may be 10%-15% lower than serum/plasma values. (CLIA ID [id number]) Performed By: #### H EMDF, HA1C2, LIPD2, BMP3 #### [facility] [address] [place] [address] Glucose mass conc 154 mg/dL High 70-100 [facility] Comment on above: Result Comment: Test performed by glucose meter. Results may be 10%-15% lower than serum/plasma values. (CLIA ID [id number]) Performed By: #### H EMDF, HA1C2, LIPD2, BMP3 #### [facility] [address] [place] [address] Glucose,Bedsideon 01-18-2019 Glucose mass conc 123 mg/dL High 70-100 [facility] Comment on above: Result Comment: Test performed by glucose meter. Results may be 10%-15% lower than serum/plasma values. (CLIA ID [id number]) Performed By: #### H EMDF, HA1C2, LIPD2, BMP3 #### [facility] [address] [place] [address] Glucose mass conc 231 mg/dL High 70-100 [facility] Comment on above: Result Comment: Test performed by glucose meter. Results may be 10%-15% lower than serum/plasma values. (CLIA ID [id number]) Performed By: #### H EMDF, HA1C2, LIPD2, BMP3 #### [facility] [address] [place] [address] Glucose mass conc 84 mg/dL Normal 70-100 [facility] Comment on above: Result Comment: Test performed by glucose meter. Results may be 10%-15% lower than serum/plasma values. (CLIA ID [id number]) Performed By: #### H EMDF, HA1C2, LIPD2, BMP3 #### [facility] [address] [place] [address] Glucose mass conc 121 mg/dL High 70-100 [facility] Comment on above: Result Comment: Test performed by glucose meter. Results may be 10%-15% lower than serum/plasma values. (CLIA ID [id number]) Performed By: #### H EMDF, HA1C2, LIPD2, BMP3 #### [facility] [address] [place] [address] MRA Head w/o Contraston 01-03 MRA Head w/o Contrast Patient Name: MARTHA VENEGAS MRI Exam Date/Time 01/17/2019 18:34:49 EDT Exam MRA Head w/o Contrast Ordering Physician MD VILLALTA SHREEBATSA Accession Number [id number] CPT4 Codes 75641 () Reason For Exam STROKE Report MRA HEAD WITHOUT CONTRAST CLINICAL INDICATION: Stroke Noncontrast three-dimensional drzg-ws-ireety MRA images of the intracranial circulation were obtained. Maximum intensity projection reformatted images were also made available for interpretation. 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 There is a predominantly origin of the left posterior cerebral artery which appears widely patent. The bilateral anterior and middle cerebral arteries appear patent. The distal vertebral arteries and basilar arteries appear normal. There is no evidence of aneurysm or vascular malformation. 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 Otherwise unremarkable MRA of the intracranial circulation. Report Dictated on Workstation: COUNTS INCLUDE 234 BEDS AT THE [facility] Final Dictated: 01/17/2019 10:54 pm Dictating Physician: MD PIPER JONATHAN R Signed Date and Time: 01/17/2019 10:56 pm Signed by: MD PIPER JONATHAN R Transcribed Date and Time: 01/17/2019 10:54 Normal [facility] MRA Neck w/ + w/o Contraston 01-18-2019 MRA Neck w/ + w/o Contrast Patient Name: MARTHA VENEGAS MRI Exam Date/Time 01/17/2019 18:34:49 EDT Exam MRA Neck w/ + w/o Contrast Ordering Physician [id number] ELINA JERRY Accession Number [id number] CPT4 Codes 48336 () Reason For Exam Stroke, L visual loss Report MRA NECK WITH AND WITHOUT CONTRAST CLINICAL INDICATION: Stroke Noncontrast 2-D ahdx-lm-rozshm MR angiographic images of the neck were performed. Gadolinium bolus postcontrast MR angiographic images of the neck were obtained after administration of 19 mL of Multihance gadolinium contrast. Maximum intensity projection images were also made available for interpretation. COMPARISON: MRA head performed the same day FINDINGS: There are patent origins of the great vessels. Along the lengths of the right and left vertebral arteries, there are no stenoses. Both vertebral arteries are patent through the axis loop to the basilar artery. There is no evidence of dissection. The lower right and left common carotid arteries are widely patent. The right carotid bifurcation demonstrates no hemodynamically significant stenosis. There is 0 percent stenosis by NASCET criteria. The external carotid is patent. The left carotid bifurcation demonstrates no hemodynamically significant stenosis. There is 0 percent stenosis by NASCET criteria. The external carotid is patent. There is good flow in the upper cervical internal carotid arteries to the carotid siphons bilaterally, with no evidence of stenosis or dissection. IMPRESSION: No significant carotid bifurcation stenosis or ulceration, 0 percent stenosis by NASCET criteria bilaterally. No significant vertebrobasilar stenosis. Report Dictated on Workstation: [facility] Final Dictated: 01/17/2019 10:56 pm Dictating Physician: MD PIPER JONATHAN R Signed Date and Time: 01/17/2019 10:58 pm Signed by: MD PIPER JONATHAN R Transcribed Date and Time: 01/17/2019 10:56 Normal [facility] MRI Brain w/ + w/o Contrasto n 01-18-2019 MRI Brain w/ + w/o Contrast Patient Name: MARTHA VENEGAS MRI Exam Date/Time 01/17/2019 18:34:49 EDT Exam MRI Brain w/ + w/o Contrast Ordering Physician [id number] ELINA JERRY Accession Number [id number] CPT4 Codes 01066 () Reason For Exam stroke, L visual changes Report MRI BRAIN WITH AND WITHOUT CONTRAST CLINICAL INDICATION: Stroke, left-sided visual changes Multiplanar, multisequence MR imaging of the brain was performed both before and after the intravenous administration of 19 mL Multihance gadolinium contrast. COMPARISON: None FINDINGS: There is scattered abnormal diffusion restriction within the right occipital lobe consistent with acute infarction. There is also abnormal diffusion restriction within the splenium of the corpus callosum predominately on the right and a small area of diffusion restriction within the posterolateral aspect of the right thalamus. The ventricles, sulci, and cisterns are normal in size and configuration for the patient's age. There is no evidence of mass lesion, edema, or hemorrhage. There is no hydrocephalus, midline shift, or herniation. No epidural or subdural collections are present. There are scattered areas of increased T2 and FLAIR signal within the periventricular and subcortical white matter. The hypothalamus and pituitary regions are normal. The brain stem, cerebellum, and craniocervical junction appear normal. The globes and orbital contents are grossly normal. The paranasal sinuses appear clear. Following Gadolinium administration, there is no pathologic enhancement in the brain or meninges. There is normal enhancement of the cerebral vascular structures and choroid. IMPRESSION: Scattered areas of acute infarction within the right occipital lobe. Abnormal diffusion restriction consistent with acute infarct also extends into the splenium of the corpus callosum predominantly to the right of midline. There is also a small area of abnormal diffusion restriction consistent with acute infarction within the posterolateral aspect of the right thalamus. No abnormal enhancement seen following administration of gadolinium contrast. Report Dictated on Workstation: [facility] Final Dictated: 01/17/2019 10:49 pm Dictating Physician: MD PIPER JONATHAN R Signed Date and Time: 01/17/2019 10:54 pm Signed by: MD PIPER JONATHAN R Transcribed Date and Time: 01/17/2019 10:49 Normal [facility] Add on test from HISon 01-17 Add on test from HIS Accepted Normal [facility] Comment on above: Result Comment: Spec imen available & acceptable for analysis. Performed By: #### A DDON #### [address] [address] [address] [place], [place] Basic Metabolic Panelon 01-03 Calcium mass conc 9.4 mg/dL Normal 8.4-10.4 [facility] Comment on above: Performed By: #### H EMDF, HA1C2, LIPD2, BMP3 #### [facility] [address] [place], [place] Anion gap molar conc 14 Normal [facility] Comment on above: Performed By: #### H EMDF, HA1C2, LIPD2, BMP3 #### [facility] [address] [place], [place] CO2 molar conc 28 mmol/L Normal 22-30 [facility] Comment on above: Performed By: #### H EMDF, HA1C2, LIPD2, BMP3 #### [address] [address] [place], [place] Creatinine mass conc 0.84 mg/dL Normal 0.52-1.25 [facility] Comment on above: Performed By: #### H EMDF, HA1C2, LIPD2, BMP3 #### [address] [address] [place], [place] GFR/1.73 sq M predicted among blacks MDRD vol rate/area (S/P/Bld) mL/min/{1.73_m2} Normal >60 [facility] Comment on above: Performed By: #### H EMDF, HA1C2, LIPD2, BMP3 #### [address] [address] [place], [place] GFR/1.73 sq M predicted among non-blacks MDRD vol rate/area (S/P/Bld) mL/min/{1.73_m2} Normal >60 [facility] Comment on above: Result Comment: Sour ce- MDRD equation with creatinine calibration to IDMS(NKDEP) eGFR not recommended for drug dose adjustment Performed By: #### H EMDF, HA1C2, LIPD2, BMP3 #### [address] [address] [place], [place] Glucose mass conc 155 mg/dL High 70-100 [facility] Comment on above: Performed By: #### H EMDF, HA1C2, LIPD2, BMP3 #### [address] [address] [place], [place] Urea nitrogen mass conc 19 mg/dL Normal 7-20 [facility] Comment on above: Performed By: #### H EMDF, HA1C2, LIPD2, BMP3 #### [address] Chloride molar conc 97 mmol/L Low 98-107 [facility] Comment on above: Performed By: #### H EMDF, HA1C2, LIPD2, BMP3 #### [address] [address] [place] [address] Potassium molar conc 3.3 mmol/L Low 3.5-5.1 [facility] Comment on above: Performed By: #### H EMDF, HA1C2, LIPD2, BMP3 #### [facility] [address] [place] [address] Sodium molar conc 139 mmol/L Normal 135-145 [facility] Comment on above: Performed By: #### H EMDF, HA1C2, LIPD2, BMP3 #### [facility] [facility] [facility] [address] [place] [address] Echo Complete w/wo Contrasto n 01-17-2019 Echo Complete w/wo Contrast Patient Name: MARTHA VENEGAS Ultrasound Exam Date/Time 01/17/2019 15:33:54 EDT Exam Echo Complete w/wo Contrast Ordering Physician Jamie AMADOR PALLAVI Accession Number [id number] Reason For Exam stroke Report TRANSTHORACIC ECHOCARDIOGRAM PATIENT: Martha Venegas STUDY DATE: 01/17/2019 : 1970 AGE: 48 HT/WT: 165.1 cm (65 92.1 kg (202.6 in) lb) GENDER: F BP: 137 / 95 LOCATION: [facility] PATIENT Observation [facility] STATUS: *ORDERING PHYSICIAN: * Stacey Amador *READING PHYSICIAN: * Wesley Gracia, *ANIMAL HERDER: * Raymond Gotti RDCS, MD AE --- INDICATIONS: (stroke). --- CONCLUSIONS SUMMARY: 1. Left ventricle: Systolic function is normal by visual assessment. The estimated ejection fraction is 70%. There are no regional wall motion abnormalities. 2. Ventricular septum: There is no evidence of a ventricular septal defect. 3. Atrial septum: Color Doppler shows no evidence of shunt. There is no aneurysm. 4. No significant valve disease. --- STUDY DATA: Complete transthoracic echocardiogram. Procedure: Image quality was good. M-mode, complete 2D, complete spectral Doppler, and color flow Doppler images were acquired and archived for permanent storage and are available for subsequent review. Study status: Routine. Patient status: Observation. --- FINDINGS LEFT VENTRICLE: The cavity size is normal. Wall thickness is mildly increased. Systolic function is normal by visual assessment. The estimated ejection fraction is 70%. There are no regional wall motion abnormalities. There is a borderline abnormality in the ratio of early to atrial left ventricular filling. The tissue Doppler parameters are abnormal. Left ventricular diastolic function parameters are normal for the patient's age. E/e' average: 9.5 RIGHT VENTRICLE: The cavity size is normal. Wall thickness is normal. Systolic function is normal. Right ventricular systolic pressure is within the normal range. VENTRICULAR SEPTUM: There is no evidence of a ventricular septal defect. LEFT ATRIUM: The atrium is normal in size. RIGHT ATRIUM: The atrium is normal in size. ATRIAL SEPTUM: Color Doppler shows no evidence of shunt. There is no aneurysm. MITRAL VALVE: Mildly thickened leaflets. Doppler: There is no regurgitation. AORTIC VALVE: Structurally normal valve. Trileaflet. Doppler: There is no regurgitation. Peak gradient (S): 6 mm Hg. Peak velocity (S): 1.2 m/sec. TRICUSPID VALVE: Structurally normal valve. Doppler: There is no regurgitation. PULMONIC VALVE: Structurally normal valve. Doppler: There is trivial, less than 1+ regurgitation. AORTA: The aorta is normal. PULMONARY ARTERY: Main pulmonary artery: Normal. PERICARDIUM: There is no pericardial effusion. SYSTEMIC VEINS: Inferior vena cava: The vessel is normal. The IVC collapses by greater than 50% with inspiration. --- Measurements Left ventricle Value Reference LV ID, ED 4.1 cm 3.9 - 5.3 LV ID, ES 2.5 cm --------- LV PW thickness, ED (H) 1.2 cm 0.6 - 0.9 LV end-diastolic volume, 1-p A4C (L) 32 ml 56 - 104 LV end-systolic volume, 1-p A4C (L) 11 ml 19 - 49 LV end-diastolic volume, 2-p (L) 30 ml 56 - 104 LV end-systolic volume, 2-p (L) 12 ml 19 - 49 LV ejection fraction, 2-p 59 % >=55 LV E/e', lateral 7.5 --------- LV E/e', medial 13.1 --------- LV E/e', average 9.5 --------- Ventricular septum Value Reference IVS thickness, ED (H) 1.1 cm 0.6 - 0.9 LVOT Value Reference LVOT ID, A-P 2.0 cm --------- LVOT mean velocity, S 0.6 m/sec --------- LVOT VTI, S 15.5 cm --------- LVOT peak gradient, S 4 mm Hg --------- Stroke volume (SV), LVOT DP 48 ml --------- Stroke index (SV/bsa), LVOT DP 23 ml/m2 --------- Aortic valve Value Reference Aortic annulus diameter, ED 1.8 cm --------- Aortic valve peak velocity, S 1.2 m/sec --------- Aortic peak gradient, S 6 mm Hg --------- Aorta Value Reference Ascending aorta ID, A-P, S 3.4 cm --------- Left atrium Value Reference LA volume/bsa, ES, 2-p 15 ml/m2 --------- Mitral valve Value Reference Mitral E-wave peak velocity 0.5 m/sec --------- Mitral A-wave peak velocity 0.8 m/sec --------- Mitral deceleration time 185 ms --------- Mitral E/A ratio, peak 0.7 --------- Right atrium Value Reference RA area, ES, A4C (L) 9 cm2 10 - 18 Right ventricle Value Reference RV ID, minor axis, ED, A4C base (L) 2.1 cm 2.4 - 4.2 RV ID, minor axis, ED, A4C mid 2.5 cm 2.0 - 3.5 TAPSE 1.8 cm --------- RV s', lateral, S 0.2 m/sec --------- Legend: (L) and (H) arpan values outside specified reference range. Electronically signed by Wesley Gracia MD 01/17/2019 15:54 Final Dictated: 01/17/2019 3:55 pm Dictating Physician: MD GRACIA STEPHEN A Signed Date and Time: 01/17/2019 3:54 pm Signed by: MD GRACIA STEPHEN A Normal [facility] Glucose,Bedsideon 01-17-2019 Glucose mass conc 117 mg/dL High 70-100 [facility] Comment on above: Result Comment: Test performed by glucose meter. Results may be 10%-15% lower than serum/plasma values. (CLIA ID [id number]) Performed By: #### H EMDF, HA1C2, LIPD2, BMP3 #### [address] [place] [place] [address] Glucose mass conc 125 mg/dL High 70-100 [facility] Comment on above: Result Comment: Test performed by glucose meter. Results may be 10%-15% lower than serum/plasma values. (CLIA ID [id number]) Performed By: #### B GLU #### [address], [place] Glucose mass conc 106 mg/dL High 70-100 [facility] Comment on above: Result Comment: Test performed by glucose meter. Results may be 10%-15% lower than serum/plasma values. (CLIA ID [id number]) Performed By: #### B GLU #### [address] [place], [place] Glucose mass conc 132 mg/dL High 70-100 [facility] Comment on above: Result Comment: Test performed by glucose meter. Results may be 10%-15% lower than serum/plasma values. (CLIA ID [id number]) Performed By: #### B GLU #### [address] [id number] Hemoglobin A1Con 01-17-2019 Hemoglobin A1c/Hemoglobin.tot al mass fraction (Bld) 240 mg/dL Normal [facility] Comment on above: Performed By: #### H EMDF, HA1C2, LIPD2, BMP3 #### [address] [address] [place], [place] Hemoglobin A1c/Hemoglobin.tot al mass fraction (Bld) 10.0 % High 4.0-5.7 [facility] Comment on above: Result Comment: --Hg bA1C levels may not be accurate in patients who have renal disease, received recent blood transfusions, are anemic, or who have dyshemoglobinemia. Performed By: #### H EMDF, HA1C2, LIPD2, BMP3 #### [address] [address] [place], [place] Hemogram w/ Autodiffon 01-17 Abs Baso Cnt 0.0 10*3/uL Normal 0.0-0.2 [facility] Comment on above: Performed By: #### H EMDF, HA1C2, LIPD2, BMP3 #### [address] Abs Neutrophile Cnt 5.3 10*3/uL Normal 1.8-7.0 [facility] Comment on above: Performed By: #### H EMDF, HA1C2, LIPD2, BMP3 #### [address] Basophils/100 WBC (Bld) 0.4 % Normal 0.0-2.0 [facility] Comment on above: Performed By: #### H EMDF, HA1C2, LIPD2, BMP3 #### [address] Eosinophils #/vol (Bld) 0.3 10*3/uL Normal 0.0-0.5 [facility] Comment on above: Performed By: #### H EMDF, HA1C2, LIPD2, BMP3 #### [address] Eosinophils/100 WBC (Bld) 3.0 % Normal 1.0-6.0 [facility] Comment on above: Performed By: #### H EMDF, HA1C2, LIPD2, BMP3 #### [address] Erythrocyte distribution width Ratio (RBC) 14.0 % Normal 11.5-14.5 [facility] Comment on above: Performed By: #### H EMDF, HA1C2, LIPD2, BMP3 #### [address] Granulocytes/100 WBC (Bld) 57.6 % Normal 40.0-80.0 [facility] Comment on above: Performed By: #### H EMDF, HA1C2, LIPD2, BMP3 #### [address] Hematocrit Volume Fraction (Bld) 41.2 % Normal 35.0-47.0 [facility] Comment on above: Performed By: #### H EMDF, HA1C2, LIPD2, BMP3 #### [address] Hemoglobin mass conc (Bld) 13.6 g/dL Normal 11.7-16.0 [facility] Comment on above: Performed By: #### H EMDF, HA1C2, LIPD2, BMP3 #### [address] Lymphocytes #/vol (Bld) 2.7 10*3/uL Normal 1.0-4.3 [facility] Comment on above: Performed By: #### H EMDF, HA1C2, LIPD2, BMP3 #### [address] Lymphocytes/100 WBC (Bld) 28.7 % Normal 20.0-40.0 [facility] Comment on above: Performed By: #### H EMDF, HA1C2, LIPD2, BMP3 #### [address] MCH Entitic mass (RBC) 26.6 pg Normal 26.0-34.0 [facility] Comment on above: Performed By: #### H EMDF, HA1C2, LIPD2, BMP3 #### [address] MCHC mass conc (RBC) 33.0 % Normal 32.0-36.0 [facility] Comment on above: Performed By: #### H EMDF, HA1C2, LIPD2, BMP3 #### [address] MCV Entitic volume (RBC) 80.8 fL Normal 79.0-98.0 [facility] Comment on above: Performed By: #### H EMDF, HA1C2, LIPD2, BMP3 #### [address] Monocytes #/vol (Bld) 1.0 10*3/uL High 0.0-0.8 [facility] Comment on above: Performed By: #### H EMDF, HA1C2, LIPD2, BMP3 #### [address] [address] [place], [place] Monocytes/100 WBC (Bld) 10.3 % High 2.0-10.0 [facility] Comment on above: Performed By: #### H EMDF, HA1C2, LIPD2, BMP3 #### [address] Platelet mean volume Entitic volume (Bld) 8.6 fL Normal 7.4-10.4 [facility] Comment on above: Performed By: #### H EMDF, HA1C2, LIPD2, BMP3 #### [address] Platelets #/vol (Bld) 328 10*3/uL Normal 140-440 [facility] Comment on above: Performed By: #### H EMDF, HA1C2, LIPD2, BMP3 #### [address] RBC #/vol (Bld) 5.09 10*6/uL Normal 3.80-5.20 [facility] Comment on above: Performed By: #### H EMDF, HA1C2, LIPD2, BMP3 #### [address] WBC #/vol (Bld) 9.2 10*3/uL Normal 3.6-10.7 [facility] Comment on above: Performed By: #### H EMDF, HA1C2, LIPD2, BMP3 #### [address] Lipid Panelon 01-17-2019 Cholesterol in HDL mass conc 36 mg/dL Low 40-60 [facility] Comment on above: Performed By: #### H EMDF, HA1C2, LIPD2, BMP3 #### [address] Cholesterol.total/ Cholesterol in HDL mass ratio 5 Normal [facility] Comment on above: Result Comment: Ref Range: < 3 Low Risk for CHD 3-6 Mod Risk for CHD > 6 High Risk for CHD Performed By: #### H EMDF, HA1C2, LIPD2, BMP3 #### [facility] [address] [place] [address] Protein mass conc 121 mg/dL Abnormal <100 [facility] Comment on above: Performed By: #### H EMDF, HA1C2, LIPD2, BMP3 #### [facility] [address] [place], [place] Cholesterol mass conc 195 mg/dL Normal < 200 [facility] Comment on above: Performed By: #### H EMDF, HA1C2, LIPD2, BMP3 #### [address] Triglyceride mass conc 192 mg/dL Abnormal <150 [facility] Comment on above: Performed By: #### H EMDF, HA1C2, LIPD2, BMP3 #### [facility] [address] [place], [place] Troponin Ion 01-17-2019 Troponin I.cardiac mass conc ng/mL Normal 0.000-0.034 [facility] Comment on above: Result Comment: 0.04 6 - 0.400 = Indeterminate > 0.400 = Consider Myocardial Injury Performed By: #### T ROPN #### [address] [address] ALLIED HEALTHon 01-16-2019 ALLIED HEALTH HNO ID: [id number] Author: Liliana (Ct) CHARANJIT Reyes Service: ? Author Type: Clinical Movement Assembly Final Inspector Type: Allied Health Filed: 01/16/2019 5:55 PM Note Text: Radiology Service Progress Note PATIENT NAME: Martha Venegas DATE OF SERVICE: January 16, 2019 TIME: 5:55 PM PATIENT IDENTITY VERIFICATION COMPLETED USING TWO (2) METHODS: Patient confirmed name verbally and ID band matches.. PATIENT GENDER DATA: Female. status: : No status: NO. PATIENT RELEVANT IMPLANT DATA REVIEWED: Not Applicable RADIOLOGY DEPARTMENT: CT; Exam(s) Completed: Brain PERIPHERAL IV DATA: Not applicable SIGNED BY: Liliana Reyes, CHARANJIT January 16, 2019 5:55 PM Normal [facility] APTTon 01-16-2019 aPTT Coag time (Bld) 21.4 s Low 23.0-32.4 [facility] Comment on above: Result Comment: Unfr actionated Heparin Therapeutic Ranges: Standard Heparin Nomogram: 53 to 78 seconds (anti-Xa level of 0.3 to 0.7 U/ml) Low Dose/ACS Nomogram: 49 to 67 seconds (anti-Xa level of 0.2 to 0.5 U/ml) Stroke Treatment Nomogram: 49 to 67 seconds (anti-Xa level of 0.2 to 0.5 U/ml) Note: The APTT therapeutic range has been determined for the current lot of laboratory APTT reagent in use throughout the [facility]. Performed By: #### C BCDIF, PT, PTT, CMP #### [facility] [address] [place] [address] CBC and Differentialon 01-16 Abs Baso <0.03 Normal <0.11 [facility] Comment on above: Performed By: #### C BCDIF, PT, PTT, CMP #### [facility] [address] [place] [address] Abs [place] 0.96 k/uL High <0.87 [facility] Comment on above: Performed By: #### C BCDIF, PT, PTT, CMP #### [facility] [address] [place] [address] Abs Neut 6.92 k/uL Normal 1.45-7.50 [facility] Comment on above: Performed By: #### C BCDIF, PT, PTT, CMP #### [facility] [address] [place] [address] Basophils/100 WBC (Bld) 0.2 % Normal [facility] Comment on above: Performed By: #### C BCDIF, PT, PTT, CMP #### [facility] [address] [place] [address] Eosinophils #/vol (Bld) 0.35 10*3/uL Normal <0.46 [facility] Comment on above: Performed By: #### C BCDIF, PT, PTT, CMP #### [facility] [address] [phone] Eosinophils/100 WBC (Bld) 3.2 % Normal [facility] Comment on above: Performed By: #### C BCDIF, PT, PTT, CMP #### [facility] [address] [phone] Erythrocyte distribution width Ratio (RBC) 14.5 % Normal 11.5-15.0 [facility] Comment on above: Performed By: #### C BCDIF, PT, PTT, CMP #### [facility] [address] [phone] Hematocrit Volume Fraction (Bld) 44.9 % Normal 36.0-46.0 [facility] Comment on above: Performed By: #### C BCDIF, PT, PTT, CMP #### [facility] [address] [phone] Hemoglobin mass conc (Bld) 14.1 g/dL Normal 11.5-15.5 [facility] Comment on above: Performed By: #### C BCDIF, PT, PTT, CMP #### [facility] [address] [phone] Lymphocytes #/vol (Bld) 2.77 10*3/uL Normal 1.00-4.00 [facility] Comment on above: Performed By: #### C BCDIF, PT, PTT, CMP #### [facility] [address] [phone] Lymphocytes/100 WBC (Bld) 25.1 % Normal [facility] Comment on above: Performed By: #### C BCDIF, PT, PTT, CMP #### [facility] [address] [phone] MCH Entitic mass (RBC) 25.8 pG Low 26.0-34.0 [facility] Comment on above: Performed By: #### C BCDIF, PT, PTT, CMP #### [facility] [address] [phone] MCHC mass conc (RBC) 31.4 g/dL Normal 30.5-36.0 [facility] Comment on above: Performed By: #### C BCDIF, PT, PTT, CMP #### [facility] [address] MCV Entitic volume (RBC) 82.2 fL Normal 80.0-100.0 [facility] Comment on above: Performed By: #### C BCDIF, PT, PTT, CMP #### [facility] [address] [phone] Monocytes/100 WBC (Bld) 8.7 % Normal [facility] Comment on above: Performed By: #### C BCDIF, PT, PTT, CMP #### [facility] [address] Neutrophils/100 WBC (Bld) 62.8 % Normal [facility] Comment on above: Performed By: #### C BCDIF, PT, PTT, CMP #### [facility] [address] [address] Platelet mean volume Entitic volume (Bld) 11.2 fL Normal 9.0-12.7 [facility] Comment on above: Performed By: #### C BCDIF, PT, PTT, CMP #### [facility] [address] [place] [address] Platelets #/vol (Bld) 274 10*3/uL Normal 150-400 [facility] Comment on above: Performed By: #### C BCDIF, PT, PTT, CMP #### [facility] [address] [place] [address] RBC #/vol (Bld) 5.46 10*6/uL High 3.90-5.20 [facility] Comment on above: Performed By: #### C BCDIF, PT, PTT, CMP #### [facility] [address] [place], [place] [id number] WBC #/vol (Bld) 11.02 10*3/uL High 3.70-11.00 [facility] Comment on above: Performed By: #### C BCDIF, PT, PTT, CMP #### [facility] [address] [place], [place] [id number] CT BRAIN WO IVCONon 01-17-[address] BRAIN WO IVCON * * *Final Report* * * DATE OF EXAM: Jan 16 2019 5:54PM [facility] - CT BRAIN WO IVCON / PROCEDURE REASON: Vision changes * * * * Physician Interpretation * * * * EXAMINATION: CT BRAIN WO IVCON CLINICAL HISTORY: Vision changes TECHNIQUE: Serial axial images without IV contrast were obtained from the vertex to the foramen magnum. MQ: CTBWO_[id number] CT Dose-Length Product (DLP): 532 mGy*cm CT Dose Reduction Employed: Automated exposure control (AEC) COMPARISON: None. RESULT: Post-operative change: None. Acute change: No evidence of an acute infarct or other acute parenchymal process. Hemorrhage: No evidence of acute intracranial hemorrhage. Mass Lesion / Mass Effect: There is no evidence of an intracranial mass or extraaxial fluid collection. No significant mass effect. Chronic change: None apparent. Parenchyma: There is no significant volume loss. The brain parenchyma is otherwise within normal limits for age. Ventricles: The ventricles are within normal limits of size and configuration for age. Paranasal sinuses and skull base: The visualized paranasal sinuses are grossly clear. The skull base and imaged soft tissues are unremarkable. IMPRESSION: No acute intracranial process. Case Repairer: STEFANIE Transcribe Date/Time: Jan 16 2019 5:57P Dictated by : VIVIAN WARD MD This examination was interpreted and the report reviewed and electronically signed by: VIVIAN WARD MD on Jan 16 2019 5:59PM EST [id number] Normal [facility] Comp Metabolic Panelon 01-16 Albumin mass conc 4.6 g/dL Normal 3.9-4.9 [facility] Comment on above: Performed By: #### C BCDIF, PT, PTT, CMP #### [facility] [address] [place], [place] [id number] ALP enzyme act/vol 71 U/L Normal 34-123 [facility] Comment on above: Performed By: #### C BCDIF, PT, PTT, CMP #### [facility] [address] [place], [place] [phone] ALT enzyme act/vol 38 U/L Normal 7-38 [facility] Comment on above: Performed By: #### C BCDIF, PT, PTT, CMP #### [facility] [address] [place], [place] [phone] Anion gap molar conc 16 mmol/L Normal 9-18 [facility] Comment on above: Performed By: #### C BCDIF, PT, PTT, CMP #### [facility] [address] [address] AST enzyme act/vol 27 U/L Normal 13-35 [facility] Comment on above: Performed By: #### C BCDIF, PT, PTT, CMP #### [facility] [address] [address] Bilirubin mass conc 0.3 mg/dL Normal 0.2-1.3 [facility] Comment on above: Performed By: #### C BCDIF, PT, PTT, CMP #### [facility] [address] [address] Calcium mass conc 9.9 mg/dL Normal 8.5-10.2 [facility] Comment on above: Performed By: #### C BCDIF, PT, PTT, CMP #### [facility] [address] [place] [address] Chloride molar conc 96 mmol/L Low 97-105 [facility] Comment on above: Performed By: #### C BCDIF, PT, PTT, CMP #### [facility] [address] [place] [address] CO2 molar conc 25 mmol/L Normal 22-30 [facility] Comment on above: Performed By: #### C BCDIF, PT, PTT, CMP #### [facility] [address] [place] [address] Creatinine mass conc 0.92 mg/dL Normal 0.58-0.96 [facility] Comment on above: Performed By: #### C BCDIF, PT, PTT, CMP #### [facility] [address] [place] [address] eGFR- Amer. >60 Normal [facility] Comment on above: Performed By: #### C BCDIF, PT, PTT, CMP #### [facility] [address] [place] [address] GFR/1.73 sq M predicted among non-blacks MDRD vol rate/area (S/P/Bld) mL/min/{1.73_m2} Normal [facility] Comment on above: Result Comment: eGFR (Estimated GFR) Units of measure: mL/min/1.73 meters squared eGFR is derived from the reexpressed MDRD Study equation using the following parameters: serum creatinine, age, gender and race. The creatinine assay has been calibrated to be traceable to IDMS. An eGFR <60 mL/min/1.73m2 for >3 months is consistent with chronic kidney disease. Refer to KDOQI guidelines for clinical interpretation. In patients with unstable renal function, e.g. those with acute kidney injury, the eGFR may not accurately reflect actual GFR. Performed By: #### C BCDIF, PT, PTT, CMP #### [facility] [address] [place] [address] Glucose mass conc 145 mg/dL High 74-99 [facility] Comment on above: Result Comment: The [place] [employer] (ADA) provides guidance for cutoff values for fasting glucose and random glucose. The ADA defines fasting as no caloric intake for at least 8 hours. Fasting plasma glucose results between 100 to 125 mg/dL indicate increased risk for diabetes (prediabetes). Fasting plasma glucose results greater than or equal to 126 mg/dL meet the criteria for diagnosis of diabetes. In the absence of unequivocal hyperglycemia, results should be confirmed by repeat testing. In a patient with classic symptoms of hyperglycemia or hyperglycemic crisis, random plasma glucose results greater than or equal to 200 mg/dL meet the criteria for diagnosis of diabetes. Reference: Standards of Medical Care in Diabetes 2016, [place] [employer]. Diabetes Care. 2016.39(Suppl 1). Performed By: #### C BCDIF, PT, PTT, CMP #### [facility] [address] [place], [place] [id number] Potassium molar conc 3.5 mmol/L Low 3.7-5.1 [facility] Comment on above: Performed By: #### C BCDIF, PT, PTT, CMP #### [facility] [address] [place], [place] [phone] Protein mass conc 8.4 g/dL High 6.3-8.0 [facility] Comment on above: Performed By: #### C BCDIF, PT, PTT, CMP #### [facility] [address] [place], [place] [phone] Sodium molar conc 137 mmol/L Normal 136-144 [facility] Comment on above: Performed By: #### C BCDIF, PT, PTT, CMP #### [facility] [address] [place], [place] [phone] Urea nitrogen mass conc 20 mg/dL Normal 05-25 [facility] Comment on above: Performed By: #### C BCDIF, PT, PTT, CMP #### [facility] [address] [facility] [phone] ECG COMPLETEon 01-16-2019 ECG COMPLETE NAME : MARTHA VENEGAS PID : [id number] Gender : Female Race : ORD : [id number] Procedure Date : Jan 16 2019 18:02:19 Edit Date : Jan 17 2019 08:54:46 Diagnosis:NORMAL SINUS RHYTHM MINIMAL VOLTAGE CRITERIA FOR LVH, MAY BE NORMAL VARIANT BORDERLINE ECG NO PREVIOUS ECGS AVAILABLE agree Confirmed by MD ESPINOZA CHRISTOPHER ([id number]), avid editor JUAN FRANCISCO TAMAYO ([id number]) on 01/17/2019 8:54:44 AM Ventricular Rate : 86 BPM Atrial Rate : 86 BPM P-R Interval : 138 ms QRS Duration : 82 ms Q-T Interval : 380 ms QTC Calculation(Bezet) : 454 ms P [place] : 32 degrees R [place] : -3 degrees T [place] : 37 degrees Test Reason : Chest Pain Location : 1 : ER ED Overread By : MD ESPINOZA CHRISTOPHER Edited By : JUAN FRANCISCO TAMAYO Referred By : , Acquired by : GEO [facility] ED NOTEon 01-16-2019 ED NOTE HNO ID: [id number] Author: Zhane (Rn) KELLEN Becerra Service: ? Author Type: Registered Nurse Type: ED Notes Filed: 01/16/2019 6:37 PM Note Text: Pt was explained the need for admit to hospital and need to transfer [facility] ED NOTE HNO ID: [id number] Author: Zhane (Rn) KELLEN Becerra Service: ? Author Type: Registered Nurse Type: ED Notes Filed: 01/16/2019 5:42 PM Note Text: C/o of lightheadedness and dizzeness for 1 month and blurred vision [facility] ED NOTE HNO ID: [id number] Author: Opal MarroquinRn) KELLEN Fletcher Service: ? Author Type: Registered Nurse Type: ED Notes Filed: 01/16/2019 4:49 PM Note Text: Patient presents from [facility] next door with vision issues and need for MRI, patient states it all started over a month ago with some lightheadedness, vision is getting worse over the past 2 weeks. [facility] ED PROV NOTEon 01-16-2019 Protein mass conc HNO ID: [id number] Author: Dandre Espinoza DO Service: Emergency Medicine Author Type: Physician Type: ED Provider Notes Filed: 01/18/2019 12:52 AM Note Text: ED Provider Note Patient Name: Martha Venegas SERVICE DATE: 01/16/19 History Patient presents with: Blurred Vision: sent over from [facility] for an MRI, been having these vision issues for about a month-getting worse over last couple of weeks 48 year old female, with a history of asthma and HTN, presents with diplopia for the last 2 weeks. She noted an episode of diplopia and forgot how to get to work 2 weeks ago. Prior to that she had been feeling generalized weakness and lightheadedness for about a month as she was doing the keto diet. She denies any chest pain or shortness of breath. No one-sided weakness, slurred speech, facial droop or head trauma. No history of TIA or stroke. She has hypertension but does not have diabetes or hyperlipidemia. States that she still has a diplopia. She was saw an new vehicle sales consultant today who diagnosed her with left-sided homonymous hemianopsia. She was sent in for evaluation of a subacute stroke History provided by: Patient PAST MEDICAL HISTORY Diagnosis Date - Asthma Seasonal, uses Albuterol once a month - Hypertension PAST SURGICAL HISTORY Procedure Laterality Date - PAST SURGICAL HISTORY OF 2007 Excision abdominal mass - PAST SURGICAL HISTORY OF 10/14/2008 right foot soft tissue mass excision - PAST SURGICAL HISTORY OF 11/03/10 Left planter fasciotomy - REMOVAL OF OVARY(S) 2006 Right - VAGINAL HYSTERECTOMY 2007 Hysterectomy, vaginal FAMILY HISTORY Problem Relation Age of Onset - Diabetes Mother - Diabetes Maternal Grandmother - Diabetes Paternal Grandmother - Cancer Paternal Grandmother - Cancer Paternal Grandfather - other (attention deficit [Other]) Son - Diabetes Maternal Uncle Social History Tobacco Use - Smoking status: Never Smoker - Smokeless tobacco: Never Used Substance and Sexual Activity - Alcohol use: Yes Comment: rare - Drug use: No - Sexual activity: Never ALLERGIES Allergen Reactions - Tetanus Vaccines An* Local Reaction Review of Systems Constitutional: Negative for chills and fever. HENT: Negative. Eyes: Positive for visual disturbance. Negative for photophobia, pain, discharge, redness and itching. Respiratory: Negative. Cardiovascular: Negative. Gastrointestinal: Negative. Endocrine: Negative. Genitourinary: Negative for difficulty urinating and dysuria. Musculoskeletal: Negative for myalgias, neck pain and neck stiffness. Skin: Negative for rash and wound. Neurological: Positive for dizziness and light-headedness. Negative for tremors, seizures, syncope, facial asymmetry, speech difficulty, weakness, numbness and headaches. Hematological: Negative. Psychiatric/Behavioral: Negative. Physical Exam BP 141/89 Pulse 90 Temp (Src) 98.5 (Oral) Resp 16 Ht 5' 4 (1.63m) Wt 207 lb (93.9kg) SpO2 99% BMI 35.51 kg/(m2). Physical Exam Constitutional: She is oriented to person, place, and time. She appears well-developed and well-nourished. No distress. Pleasant well appearing female in NAD HENT: Head: Normocephalic and atraumatic. Eyes: Pupils are equal, round, and reactive to light. Conjunctivae and EOM are normal. States double vision with right eye, left eye and both eyes Neck: Normal range of motion. Neck supple. Cardiovascular: Normal rate, regular rhythm and normal heart sounds. Pulmonary/Chest: Effort normal and breath sounds normal. No respiratory distress. Abdominal: Soft. Bowel sounds are normal. She exhibits no distension. There is no tenderness. Musculoskeletal: Normal range of motion. Neurological: She is alert and oriented to person, place, and time. She has normal strength. No cranial nerve deficit or sensory deficit. She displays a negative Romberg sign. Coordination and gait normal. GCS eye subscore is 4. GCS verbal subscore is 5. GCS motor subscore is 6. NIHSS 0 at this time. Skin: Skin is warm and dry. Psychiatric: She has a normal mood and affect. Nursing note and vitals reviewed. Diagnostic Testing ED Labs Ordered and Reviewed CBC + DIFF - Abnormal; Notable for the following components: Result Value Ref Range WBC 11.02 (*) 3.70 - 11.00 k/uL RBC 5.46 (*) 3.90 - 5.20 m/uL MCH 25.8 (*) 26.0 - 34.0 pG Abs [place] 0.96 (*) <0.87 k/uL All other components within normal limits COMP METABOLIC PANEL - Abnormal; Notable for the following components: Protein, Total 8.4 (*) 6.3 - 8.0 g/dL Glucose 145 (*) 74 - 99 mg/dL Potassium 3.5 (*) 3.7 - 5.1 mmol/L Chloride 96 (*) 97 - 105 mmol/L All other components within normal limits ACTIVATED PTT - Abnormal; Notable for the following components: APTT 21.4 (*) 23.0 - 32.4 sec All other components within normal limits PROTHROMBIN TIME/PT - Abnormal; Notable for the following components: PT INR <0.9 (*) 0.9 - 1.3 All other components within normal limits TROPONIN T ED imaging studies ordered and reviewed CT brain: without ICH CXR: without infiltrate or cardiomegaly EKG ordered and interpreted as normal sinus rhythm rate of 86 no appreciable acute ischemic changes Procedures-none ED Course / Clinical Impression Clinical Impressions as of Jan 18 46 Diplopia Leukocytosis, unspecified type Hypokalemia MDM / Disposition / Plan IV started Nursing notes and vital signs reviewed Triage note reviewed Placed on hospital monitor Discussed with accepting physician at [facility] Dr. Villalta - agreeable to admission/transfer Patient presented to the emergency department for diplopia been going on for 2 weeks. She was sent down from optometry. They noted left-sided homonymous hemianopsia. She has no other neurological deficits on my examinations. CT brain without ICH. Her lab work is unremarkable. However with the double vision there is concerning for stroke and that she would need MRI and a neuro evaluation. She would like to go to [facility]. The patient will be transferred. She stable at this time. Dr. Villalta is accepting. The patient was TRANSFERRED to: [facility] Condition at time of disposition: stable SIGNATURE: KAREN Carrizales (Pa) 01/16/192012 Attending Note I have personally performed a face to face assessment of the patient and have reviewed the PA/REFINERY OPERATOR VAPOR RECOVERY UNIT note. My bradshaw findings include: History is the patient is a 48-year-old female past medical history of morbid obesity asthma hypertension diabetes presents from ophthalmology office with visual disturbance. Patient has reportedly had visual disturbance including including blurred vision to both visual stephenson over the past 1 month. She has had episodes of disorientation and intermittent diplopia over the past 2 weeks. She denies any unilateral muscle weakness sensory deficits or speech disturbance. No gait instability. She was evaluated by an professor of literacy today and was noted to have left sided homonymous hemianopsia and was sent in for evaluation of potential stroke. Diplopia and disorientation are intermittent worsening and relieved by nothing. Exam is mildly hypertensive upon arrival. Alert and oriented no acute distress. Head normocephalic atraumatic. Pupils equal reactive. Extraocular motion intact. Visual field cut noted to the left upper lateral quadrant. Conjunctiva normal. No facial droop. Facial sensation equal bilaterally. Heart regular rate and rhythm. Lungs clear bilaterally. Abdomen soft nontender nondistended. No ataxia. Muscle strength 5 out of 5 to all 4 extremities. Equal and appropriate sensation to the face and all 4 extremities. Remainder of exam unremarkable. Assessment/Plan are stable upon arrival. Patient noted to have visual field cut to the left upper lateral quadrant. Patient reports visual disturbance intermittently over the past 2 weeks?4 weeks. No additional neurological abnormalities noted. Blood work shows minimal leukocytosis. CT brain and chest x-ray negative. EKG shows normal sinus rhythm. Patient be transferred to [facility] per her request for further evaluation of potential subacute stroke as the cause of her visual disturbance. Patient updated and agreeable to current plan of care. All questions answered bedside. Transfer. Other additions or changes: As edited - bold type Signature: Dandre Espinoza DO Date: 01/18/2019 Time: 12:48 AM Dandre Espinoza DO 01/18/19 0052 Normal [facility] Protimeon 01-16-2019 Prothrombin time (PT) Coag time (PPP) 9.7 s Normal 9.7-13.0 [facility] Comment on above: Performed By: #### C BCDIF, PT, PTT, CMP #### [facility] [address] [phone] Prothrombin time (PT) Coag time (PPP) s Low 0.9-1.3 [facility] Comment on above: Result Comment: Denisse min K Antagonist (VKA) Therapeutic Range: INR 2 to 3 (Target INR of 2.5) Note: For patients treated with VKA drugs, such as warfarin, the [employer] [employer] 2012 Guideline recommends a therapeutic INR range of 2 to 3 (target INR of 2.5). This recommendation includes high-risk patients with antiphospholipid syndrome with previous arterial or venous thromboembolism, current-generation mechanical or bioprosthetic aortic heart valve replacement. Note: Patients with mechanical aortic valve replacement and additional risk factors for thromboembolic events (atrial fibrillation, previous thromboembolism, LV dysfunction, hypercoagulable conditions) or an older generation mechanical AVR (i.e., ball in-Cage) or any mechanical MVR should have a INR therapeutic range of 2.5 to 3.5 (target INR of 3). Adilene GH, et al. Chest 2012, 141:7S-47S Steven RA, et al. [facility] 2017, 70: 252-289 Performed By: #### C BCDIF, PT, PTT, CMP #### [facility] [address] [phone] Troponin Ton 01-16-2019 Troponin T.cardiac mass conc ug/L Normal 0.000-0.029 [facility] Comment on above: Performed By: #### T NT #### [facility] [address] [phone] XR CHEST 1V FRONTAL PORTon 0 01-16-2019 XR CHEST 1V FRONTAL PORT * * *Final Report* * * DATE OF EXAM: Jan 16 2019 5:22PM MDX [id number] - XR CHEST 1V FRONTAL PORT / PROCEDURE REASON: Fatigue and malaise * * * * Physician Interpretation * * * * EXAMINATION: CHEST RADIOGRAPH (PORTABLE SINGLE VIEW AP) Exam Date/Time: 01/16/2019 5:22 PM Clinical History: Fatigue and malaise MQ: [id number] Comparison: 10/19/2016 RESULT: IMPRESSION: 1. Lines, Tubes, and Devices: None 2. Lungs and Pleura: The lungs are clear. No infiltrates, nodules or pleural effusions are seen. 3. Cardiomediastinal silhouette: Heart size is unchanged. Pulmonary vascularity is unremarkable. 4. Other: Bony structures unremarkable. Case Repairer: STEFANIE Transcribe Date/Time: Jan 16 2019 5:31P Dictated by : NEYMAR SEVERINO DO This examination was interpreted and the report reviewed and electronically signed by: NEYMAR SEVERINO DO on Jan 16 2019 5:32PM EST [id number] [facility] VISUAL FIELD 30-2 OU (BOTH E YES) [facility] Vital Signs Date Time Vital Sign Value Performing Clinician Facility 03-09-2025 09:35-0400 Diastolic blood pressure 91 mm[Hg] Jemima Winn MD Work Phone: [facility] 03-09-2025 09:35-0400 Heart rate 57 /min Jemima Winn MD Work Phone: [facility] 03-09-2025 09:35-0400 Respiratory rate 13 /min Jemima Winn MD Work Phone: [facility] 03-09-2025 09:35-0400 SaO2% (BldA) [Mass fraction] 100 % Jemima Winn MD Work Phone: [facility] 03-09-2025 09:35-0400 Systolic blood pressure 127 mm[Hg] Jemima Winn MD Work Phone: [facility] 02-16-2025 09:49-0400 Body height 162.6 cm Phyllis Bernardo APRN.SOLUTIONS EXECUTIVE SECURITY Work Phone: [facility] 02-16-2025 09:49-0400 Body mass index (BMI) [Ratio] 33.99 kg/m2 Phyllis Bernardo APRN.SOLUTIONS EXECUTIVE SECURITY Work Phone: [facility] 02-16-2025 09:49-0400 Body weight 89.81 kg Phyllis Bernardo APRN.SOLUTIONS EXECUTIVE SECURITY Work Phone: [facility] 02-16-2025 09:49-0400 Diastolic blood pressure 78 mm[Hg] Phyllis Bernardo APRN.SOLUTIONS EXECUTIVE SECURITY Work Phone: [facility] 02-16-2025 09:49-0400 Heart rate 68 /min Phyllis Bernardo APRN.SOLUTIONS EXECUTIVE SECURITY Work Phone: [facility] 02-16-2025 09:49-0400 Respiratory rate 18 /min Phyllis Bernardo APRN.SOLUTIONS EXECUTIVE SECURITY Work Phone: [facility] 02-16-2025 09:49-0400 SaO2% (BldA) [Mass fraction] 98 % Phyllis Bernardo APRN.SOLUTIONS EXECUTIVE SECURITY Work Phone: [facility] 02-16-2025 09:49-0400 Systolic blood pressure 128 mm[Hg] Phyllis Bernardo APRN.SOLUTIONS EXECUTIVE SECURITY Work Phone: [facility] 01-15-2025 13:24-0400 Body mass index (BMI) [Ratio] 33.68 kg/m2 Elizabeth Pereira MD Work Phone: [facility] 01-15-2025 13:24-0400 Body weight 89 kg Elizabeth Pereira MD Work Phone: [facility] 01-15-2025 13:24-0400 Heart rate 75 /min Elizabeth Pereira MD Work Phone: [facility] 01-15-2025 13:24-0400 SaO2% (BldA) [Mass fraction] 100 % Elizabeth Pereira MD Work Phone: [facility] 01-05-2025 09:29-0500 Body height 162.6 cm Isabel Davenport MD Work Phone: [facility] 01-05-2025 09:29-0500 Body mass index (BMI) [Ratio] 34.06 kg/m2 Isabel Davenport MD Work Phone: [facility] 01-05-2025 09:29-0500 Body weight 90 kg Isabel Davenport MD Work Phone: [facility] 01-05-2025 09:29-0500 Diastolic blood pressure 80 mm[Hg] Isabel Davenport MD Work Phone: [facility] 01-05-2025 09:29-0500 Heart rate 70 /min Isabel Davenport MD Work Phone: [facility] 01-05-2025 09:29-0500 SaO2% (BldA) [Mass fraction] 97 % Isabel Davenport MD Work Phone: [facility] 01-05-2025 09:29-0500 Systolic blood pressure 132 mm[Hg] Isabel Davenport MD Work Phone: [facility] 11-11-2024 14:45-0500 Body mass index (BMI) [Ratio] 33.76 kg/m2 Krislyn Aberegg PA Work Phone: [facility] 11-11-2024 14:45-0500 Body temperature 97.81 [degF] Krislyn Aberegg PA Work Phone: [facility] 11-11-2024 14:45-0500 Body weight 89.2 kg Krislyn Aberegg PA Work Phone: [facility] 11-11-2024 14:45-0500 Diastolic blood pressure 82 mm[Hg] Krislyn Aberegg PA Work Phone: [facility] 11-11-2024 14:45-0500 Heart rate 87 /min Krislyn Aberegg PA Work Phone: [facility] 11-11-2024 14:45-0500 Respiratory rate 18 /min Krislyn Aberegg PA Work Phone: [facility] 11-11-2024 14:45-0500 SaO2% (BldA) [Mass fraction] 97 % Krislyn Aberegg PA Work Phone: [facility] 11-11-2024 14:45-0500 Systolic blood pressure 128 mm[Hg] Krislyn Aberegg PA Work Phone: [facility] 06-11-2024 14:12-0400 Body height 162.6 cm Merari Camarillo MD Work Phone: [facility] 06-11-2024 14:12-0400 Body mass index (BMI) [Ratio] 35.19 kg/m2 Merari Camarillo MD Work Phone: [facility] 06-11-2024 14:12-0400 Body weight 92.99 kg Merari Camarillo MD Work Phone: [facility] 06-11-2024 14:12-0400 Diastolic blood pressure 103 mm[Hg] Merari Camarillo MD Work Phone: [facility] Comment on above: hasnt taken medication yet today 06-11-2024 14:12-0400 Heart rate 72 /min Merari Camarillo MD Work Phone: [facility] 06-11-2024 14:12-0400 Respiratory rate 16 /min Merari Camarillo MD Work Phone: [facility] 06-11-2024 14:12-0400 SaO2% (BldA) [Mass fraction] 100 % Merari Camarillo MD Work Phone: [facility] 06-11-2024 14:12-0400 Systolic blood pressure 180 mm[Hg] Merari Camarillo MD Work Phone: [facility] Comment on above: hasnt taken medication yet today 01-08-2024 16:42-0500 Body height 162.6 cm Isabel Davenport MD Work Phone: [facility] 01-08-2024 16:42-0500 Body weight 94 kg Isabel Davenport MD Work Phone: [facility] 01-08-2024 16:42-0500 Diastolic blood pressure 104 mm[Hg] Isabel Davenport MD Work Phone: [facility] 01-08-2024 16:42-0500 Heart rate 79 /min Isabel Davenport MD Work Phone: [facility] 01-08-2024 16:42-0500 SaO2% (BldA) [Mass fraction] 98 % Isabel Davenport MD Work Phone: [facility] 01-08-2024 16:42-0500 Systolic blood pressure 164 mm[Hg] Isabel Davenport MD Work Phone: [facility] 12-31-2023 16:19-0500 Body height 162.6 cm Isabel Davenport MD Work Phone: [facility] 03-27-2023 14:25-0400 Body height 162.6 cm Brianda Vetovitz PA-C Work Phone: [facility] 01-29-2023 14:25-0400 Body weight 95.25 kg Brianda Vetovitz PA-C Work Phone: [facility] 12-25-2022 08:41-0500 Body height 162.6 cm Merari Camarillo MD Work Phone: [facility] 12-25-2022 08:41-0500 Body weight 95.25 kg Merari Camarillo MD Work Phone: [facility] 12-25-2022 08:41-0500 Diastolic blood pressure 100 mm[Hg] Merari Camarillo MD Work Phone: [facility] 12-25-2022 08:41-0500 Heart rate 72 /min Merari Camarillo MD Work Phone: [facility] 12-25-2022 08:41-0500 Respiratory rate 18 /min Merari Camarillo MD Work Phone: [facility] 12-25-2022 08:41-0500 SaO2% (BldA) [Mass fraction] 98 % Merari Camarillo MD Work Phone: [facility] 12-25-2022 08:41-0500 Systolic blood pressure 146 mm[Hg] Merari Camarillo MD Work Phone: [facility] 11-20-2022 11:27-0500 Body height 166 cm Isabel Davenport MD Work Phone: [facility] 11-20-2022 11:27-0500 Body weight 94.35 kg Isabel Davenport MD Work Phone: [facility] 11-20-2022 11:27-0500 Diastolic blood pressure 80 mm[Hg] Isabel Davenport MD Work Phone: [facility] 11-20-2022 11:27-0500 Heart rate 78 /min Isabel Davenport MD Work Phone: [facility] 11-20-2022 11:27-0500 Systolic blood pressure 150 mm[Hg] Isabel Davenport MD Work Phone: [facility] 10-22-2022 22:41-0500 Diastolic blood pressure 87 mm[Hg] [facility] Work Phone: 10-22-2022 22:41-0500 Heart rate 65 /min [facility] Work Phone: 10-22-2022 22:41-0500 Respiratory rate 16 /min [facility] Work Phone: 10-22-2022 22:41-0500 SaO2% (BldA) [Mass fraction] 100 % [facility] Work Phone: 10-22-2022 22:41-0500 Systolic blood pressure 152 mm[Hg] [facility] Work Phone: 10-22-2022 20:17-0500 Body height 162.56 cm [facility] Work Phone: 10-22-2022 20:17-0500 Body mass index (BMI) [Ratio] 35.1 kg/m2 [facility] Work Phone: 10-22-2022 20:17-0500 Body temperature 96 [degF] [facility] Work Phone: 10-22-2022 20:17-0500 Body weight 92.85 kg [facility] Work Phone: 09-05-2022 18:17-0400 Body temperature 98.4 [degF] Jaspreet Acuña APRN.SOLUTIONS EXECUTIVE SECURITY Work Phone: [facility] 09-05-2022 18:17-0400 Body weight 94.35 kg Jaspreet Acuña APRN.SOLUTIONS EXECUTIVE SECURITY Work Phone: [facility] 09-05-2022 18:17-0400 Diastolic blood pressure 80 mm[Hg] Jaspreet Acuña APRN.SOLUTIONS EXECUTIVE SECURITY Work Phone: [facility] 09-05-2022 18:17-0400 Heart rate 98 /min Jaspreet Mirlandelebury GYPSUM BLOCK SETTER.SOLUTIONS EXECUTIVE SECURITY Work Phone: [facility] 09-05-2022 18:17-0400 Respiratory rate 16 /min Jaspreet Acuña GYPSUM BLOCK SETTER.SOLUTIONS EXECUTIVE SECURITY Work Phone: [facility] 09-05-2022 18:17-0400 SaO2% (BldA) [Mass fraction] 98 % Jaspreet Acuña GYPSUM BLOCK SETTER.SOLUTIONS EXECUTIVE SECURITY Work Phone: [facility] 09-05-2022 18:17-0400 Systolic blood pressure 124 mm[Hg] Jaspreet Acuña GYPSUM BLOCK SETTER.SOLUTIONS EXECUTIVE SECURITY Work Phone: [facility] 07-21-2022 10:31-0400 Body height 162.6 cm Parish Koch MD Work Phone: [facility] 07-21-2022 10:31-0400 Body weight 93.89 kg Parish Koch MD Work Phone: [facility] 07-21-2022 10:31-0400 Diastolic blood pressure 89 mm[Hg] Parish Koch MD Work Phone: [facility] 07-21-2022 10:31-0400 Heart rate 74 /min Parish Koch MD Work Phone: [facility] 07-21-2022 10:31-0400 SaO2% (BldA) [Mass fraction] 99 % Parish Koch MD Work Phone: [facility] 07-21-2022 10:31-0400 Systolic blood pressure 134 mm[Hg] Parish Koch MD Work Phone: [facility] 06-14-2022 10:43-0400 Body height 162.6 cm Merari Camarillo MD Work Phone: [facility] 06-14-2022 10:43-0400 Body weight 93.89 kg Merari Camarillo MD Work Phone: [facility] 06-14-2022 10:43-0400 Diastolic blood pressure 84 mm[Hg] Merari Camarillo MD Work Phone: [facility] 06-14-2022 10:43-0400 Heart rate 73 /min Merari Camarillo MD Work Phone: [facility] 06-14-2022 10:43-0400 Respiratory rate 18 /min Merari Camarillo MD Work Phone: [facility] 06-14-2022 10:43-0400 SaO2% (BldA) [Mass fraction] 97 % Merari Camarillo MD Work Phone: [facility] 06-14-2022 10:43-0400 Systolic blood pressure 134 mm[Hg] Merari Camarillo MD Work Phone: [facility] 03-14-2022 07:59-0400 Body height 162.6 cm Jennie Sosa GYPSUM BLOCK SETTER.SOLUTIONS EXECUTIVE SECURITY Work Phone: [facility] 03-14-2022 07:59-0400 Body weight 93.89 kg Jennie Sosa GYPSUM BLOCK SETTER.SOLUTIONS EXECUTIVE SECURITY Work Phone: [facility] 03-14-2022 07:59-0400 Diastolic blood pressure 88 mm[Hg] Jennie Sosa GYPSUM BLOCK SETTER.SOLUTIONS EXECUTIVE SECURITY Work Phone: [facility] 03-14-2022 07:59-0400 Heart rate 77 /min Jennie Sosa GYPSUM BLOCK SETTER.SOLUTIONS EXECUTIVE SECURITY Work Phone: [facility] 03-14-2022 07:59-0400 Respiratory rate 18 /min Jennie Sosa GYPSUM BLOCK SETTER.SOLUTIONS EXECUTIVE SECURITY Work Phone: [facility] 03-14-2022 07:59-0400 SaO2% (BldA) [Mass fraction] 98 % Jennie Sosa GYPSUM BLOCK SETTER.SOLUTIONS EXECUTIVE SECURITY Work Phone: [facility] 03-14-2022 07:59-0400 Systolic blood pressure 132 mm[Hg] Jennie Sosa GYPSUM BLOCK SETTER.SOLUTIONS EXECUTIVE SECURITY Work Phone: [facility] 02-18-2022 13:45-0400 Body temperature 97.2 [degF] Danette Lopez GYPSUM BLOCK SETTER.SOLUTIONS EXECUTIVE SECURITY Work Phone: [facility] 02-18-2022 13:45-0400 Body weight 97.61 kg Danette Lopez GYPSUM BLOCK SETTER.SOLUTIONS EXECUTIVE SECURITY Work Phone: [facility] 02-18-2022 13:45-0400 Diastolic blood pressure 74 mm[Hg] Danette Lopez GYPSUM BLOCK SETTER.SOLUTIONS EXECUTIVE SECURITY Work Phone: [facility] 02-18-2022 13:45-0400 Heart rate 70 /min Danette Lopez GYPSUM BLOCK SETTER.SOLUTIONS EXECUTIVE SECURITY Work Phone: [facility] 02-18-2022 13:45-0400 Respiratory rate 18 /min Danette Lopez GYPSUM BLOCK SETTER.SOLUTIONS EXECUTIVE SECURITY Work Phone: [facility] 02-18-2022 13:45-0400 SaO2% (BldA) [Mass fraction] 97 % Danette Lopez GYPSUM BLOCK SETTER.SOLUTIONS EXECUTIVE SECURITY Work Phone: [facility] 02-18-2022 13:45-0400 Systolic blood pressure 130 mm[Hg] Danette Lopez GYPSUM BLOCK SETTER.SOLUTIONS EXECUTIVE SECURITY Work Phone: [facility] Encounters Encounter Date Encounter Type Care Provider Facility Start: 04-08-2025 ambulatory [facility] Fa cility:[facility] Start: 03-13-2025 End: 03-13-2025 Telephone encounter Isabel Davenport MD Work Phone: [facility] Start: 03-09-2025 ambulatory JEMIMA WINN Facility: [facility] Start: 03-09-2025 End: 03-09-2025 Subsequent hospital visit by physician Jemima Winn MD Work Phone: [facility] Surgery Comment on above: Positive fecal occul t blood test [R19.5] Start: 03-03-2025 End: 03-03-2025 ambulatory Isabel Davenport MD Work Phone: [facility] Comment on above: Fax number Start: 03-03-2025 End: 03-04-2025 Telephone encounter Keaton Wade MD Work Phone: Ambulatory Surgery Comment on above: Appointment Patient Update Start: 02-27-2025 ambulatory ISABEL DAVENPORT [facility] ty:[facility] Start: 02-23-2025 End: 02-23-2025 Telephone encounter Belén Alcala MD Work Phone: 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 For Pro cedures Start: 02-16-2025 End: 02-23-2025 Telephone encounter Phyllis Bernardo APRN.SOLUTIONS EXECUTIVE SECURITY Work Phone: [facility] Comment on above: Appointment Start: 02-16-2025 End: 02-16-2025 Patient encounter procedure Phlylis Bernardo APRN.SOLUTIONS EXECUTIVE SECURITY Work Phone: [facility] Comment on above: PFO (patent foramen ovale) (HCC) (Primary Dx); Essential (primary) hypertension; Mixed hyperlipidemia Start: 02-16-2025 End: 02-16-2025 ambulatory ISABEL DAVENPORT Facility:[facility] Start: 02-03-2025 End: 02-03-2025 Telephone encounter Isabel Davenport MD Work Phone: [facility] Comment on above: Received Outside SubC Control Records ([place] [employer] [facility] Certification of Health Care provider for employees serious health condition 02/03/2025) Start: 01-29-2025 End: 01-29-2025 Refill Isabel Davenport MD Work Phone: [facility] Comment on above: Refill Request Start: 01-15-2025 End: 01-15-2025 ambulatory ELIZABETH PEREIRA Facility:[facility] Start: 01-15-2025 End: 01-15-2025 Office outpatient new 45 minutes Elizabeth Pereira MD Work Phone: Allergy Comment on above: Chronic idiopathic u rticaria (Primary Dx); Angioedema, initial encounter; Adverse food reaction, initial encounter Start: 01-05-2025 End: 03-07-2025 Follow-up encounter Isabel Davenport MD Work Phone: [facility] Start: 01-05-2025 End: 01-05-2025 ambulatory ISABEL DAVENPORT Facility:[facility] Start: 01-05-2025 End: 01-05-2025 Office outpatient visit 25 minutes Isabel Davenport MD Work Phone: [facility] Comment on above: Type 2 diabetes tavo itus without complication, without long- term current use of insulin (HCC) (Primary Dx); Mixed hyperlipidemia; Essential hypertension; 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, unspecified blood vessel laterality (HCC); Acquired hypothyroidism; Screening mammogram for breast cancer; Bereavement reaction; Oral lesion; Encounter for screening fecal occult blood testing Start: 01-02-2025 End: 01-02-2025 ambulatory ISABEL DAVENPORT Facility:[facility] Start: 12-25-2024 End: 12-25-2024 Telephone encounter Isabel Davenport MD Work Phone: [facility] Comment on above: 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 (Dannie finch ) Start: 12-23-2024 End: 12-26-2024 ambulatory Isabel Davenport MD Work Phone: Internal Medicine [place] [id number] Start: 12-17-2024 End: 12-19-2024 ambulatory Isabel Davenport MD Work Phone: [facility] Start: 11-12-2024 End: 11-12-2024 Telephone encounter Jorge Hobson MD Work Phone: [facility] Comment on above: Results (COVID+) Start: 11-11-2024 End: 11-11-2024 Subsequent hospital visit by physician [facility] Melissa Work Phone: Radiology Comment on above: Acute cough [R05.1] Start: 11-11-2024 End: 11-11-2024 ambulatory ISABEL DAVENPORT Facility:[facility] [place] Start: 11-11-2024 End: 11-11-2024 Patient encounter procedure Eneida GREENWOOD Work Phone: [facility] Comment on above: Acute cough (Primary Dx); URI, acute Start: 09-13-2024 End: 09-15-2024 Refill Isabel Davenport MD Work Phone: [facility] Comment on above: Refill Request Start: 07-04-2024 End: 07-04-2024 Refill Farnaz Flores [employer]UTIONS EXECUTIVE SECURITY Work Phone: [facility] Comment on above: Refill Request Start: 06-11-2024 End: 06-11-2024 Patient encounter procedure Merari Cmaarillo MD Work Phone: [facility] Comment on above: History of CVA (cere brovascular accident) (Primary Dx); Primary hypertension; Mixed hyperlipidemia Start: 06-11-2024 End: 06-11-2024 ambulatory ISABEL DAVENPORT Facility:[facility] Start: 05-11-2024 Refill Isabel chan MD Work Phone: [facility] Comment on above: Refill Request Start: 04-16-2024 ambulatory Isabel chan MD Work Phone: [facility] Comment on above: lab Start: 04-16-2024 E-mail encounter fro m caregiver Isabel Davenport MD Work Phone: [facility] Start: 04-14-2024 End: 04-14-2024 ambulatory ISABEL DAVENPORT Facility:[facility] [place] Start: 04-08-2024 End: 04-08-2024 ambulatory ISABEL DAVENPORT Facility:[facility] Start: 04-08-2024 End: 04-08-2024 Patient encounter procedure Fernando Bakaristeve OD Work Phone: [facility] Comment on above: Low vision right eye category 1, low vision left eye category 1 (Primary Dx); Homonymous hemianopsia, left; Occipital stroke (HCC); Presbyopia Start: 03-28-2024 End: 03-28-2024 ambulatory ISABEL DAVENPORT Facility:[facility] Start: 03-28-2024 End: 03-28-2024 Patient encounter procedure Antonio Christina OD Work Phone: Ophthalmology Comment on above: Type 2 diabetes tavo itus without retinopathy (HCC) (Primary Dx); Homonymous hemianopsia, left Start: 03-20-2024 End: 03-20-2024 ambulatory ISABEL DAVENPORT Facility:[facility] Start: 02-29-2024 ambulatory Isabel chan MD Work Phone: [facility] Start: 02-29-2024 E-mail encounter fro m caregiver Isabel Davenport MD Work Phone: [facility] Start: 02-27-2024 ambulatory Isabel chan MD Work Phone: [facility] Comment on above: Wellness Screening F rom Start: 02-27-2024 Documentation procedure Mammog hamlet Coordinator [facility] Department Start: 02-27-2024 Letter encounter Mammography Coordinator [facility] Start: 02-26-2024 End: 02-26-2024 Subsequent hospital visit by physician Screen Mammo [facility] Start: 01-08-2024 End: 01-08-2024 Patient encounter procedure Isabel Davenport MD Work Phone: [facility] Comment on above: Cerebrovascular acci dent (CVA) due to embolism of posterior cerebral artery, unspecified blood vessel laterality (HCC) (Primary Dx); Type 2 diabetes mellitus without complication, without long-term current use of insulin (HCC); Essential hypertension; Acquired hypothyroidism; Type 2 diabetes mellitus without complication, with no history of insulin use (HCC); Encounter for immunization; Screening mammogram for breast cancer; Encounter for screening fecal occult blood testing; Encounter for screening mammogram for breast cancer; Screening for HIV (human immunodeficiency virus) Start: 01-08-2024 Telephone encounter Merari lemos MD Work Phone: [facility] Cardiology [place] Comment on above: Results Start: 01-06-2024 ambulatory Hermelinda SALDANA SE CORPORATE STATISTICAL FINANCIAL ANALYST Comment on above: Patient Question Start: 12-31-2023 End: 12-31-2023 Patient encounter procedure Isabel Davenport MD Work Phone: [facility] Comment on above: NO SHOW (Primary Dx) Start: 12-30-2023 Refill Isabel chan MD Work Phone: [facility] Comment on above: Refill Request Start: 04-10-2023 Refill Merari Marquise M D Work Phone: [facility] Comment on above: Refill Request Start: 03-27-2023 Telephone encounter Isabel Davenport MD Work Phone: [facility] Comment on above: Received Outside Med ical Records ([facility] Emergency Department Summary 03/25/2023) Start: 03-06-2023 End: 03-06-2023 ambulatory Johny Flores PT Work Phone: [facility] Comment on above: Leg length discrepan cy (Primary Dx) Start: 02-19-2023 Orders Only Sheron Albert nn GYPSUM BLOCK SETTER.[employer] EXECUTIVE SECURITY Work Phone: Cardiology Comment on above: PFO (patent foramen ovale) (Primary Dx) Start: 02-15-2023 Refill Merari Marquise M D Work Phone: [facility] Comment on above: Refill Request Start: 02-15-2023 End: 02-15-2023 ambulatory Johny Flores PT Work Phone: [facility] Comment on above: Leg length discrepan cy (Primary Dx) Start: 02-02-2023 ambulatory Isabel chan MD Work Phone: [facility] Comment on above: Prescription [employer] p Sticker Renewal Start: 01-30-2023 ambulatory Brianda Vetovit z PA-C Work Phone: Orthopaedics Comment on above: Forgot: Return to Wo rk Note Start: 01-29-2023 End: 01-29-2023 Orders Only Brianda Vetovitz PA-C Work Phone: Orthopaedics Comment on above: Pain in right hip (P rimary Dx) Primary osteoarthrit is of right hip (Primary Dx); Sacroiliitis (HCC); Leg length discrepancy Start: 01-26-2023 End: 01-26-2023 Follow-up encounter Rem [facility] DEVICE [facility] Comment on above: Remote Pacemaker Fol low Up Start: 01-26-2023 End: 01-26-2023 Patient encounter procedure Rem Device [facility] Start: 01-05-2023 Documentation procedure Mammog hamlet Coordinator [facility] Start: 01-05-2023 Letter encounter Mammography Coordinator [facility] Department Start: 01-01-2023 [facility] Fifi Calderón MD Work Phone: Cardiology Comment on above: After Surgery/Return to work Start: 01-01-2023 ambulatory Fifi preciado MD Work Phone: [facility] Start: 01-01-2023 Telephone encounter Merari lemos MD Work Phone: Preventive Cardiology Comment on above: Patient Question (As ked why appointment Dr. Duffy) Start: 12-29-2022 [facility] Fifi Calderón MD Work Phone: Cardiology Comment on above: After Surgery/Return to work Start: 12-29-2022 ambulatory Fifi preciado MD Work Phone: [facility] Start: 12-27-2022 End: 12-27-2022 Follow-up encounter Rem [facility] DEVICE [facility] Comment on above: Remote ILR Follow Up Start: 12-27-2022 End: 12-27-2022 Patient encounter procedure Rem Device [facility] Start: 12-26-2022 [facility] Fifi Calderón MD Work Phone: Cardiology Comment on above: After Surgery/Return to work Start: 12-26-2022 ambulatory Fifi preciado MD Work Phone: [facility] Start: 12-25-2022 End: 12-25-2022 Patient encounter procedure Merari Camarillo MD Work Phone: [facility] Comment on above: Primary hypertension (Primary Dx); Mixed hyperlipidemia; Recurrent cerebrovascular accidents (CVAs) (HCC) Start: 12-19-2022 Admission to [facility] Fifi Calderón MD Work Phone: Cardiology Comment on above: Reply: After Surgery Start: 12-19-2022 ambulatory Fifi preciado MD Work Phone: [facility] Start: 12-15-2022 [facility] Fifi Calderón MD Work Phone: Cardiology Comment on above: After Surgery/Return to work Start: 12-15-2022 ambulatory Fifi preciado MD Work Phone: [facility] Start: 12-10-2022 Telephone encounter Fifi emanuel MD Work Phone: Cardiology Comment on above: Education Of Patient /family Start: 11-27-2022 End: 11-27-2022 Follow-up encounter Rem [facility] DEVICE [facility] Comment on above: Remote ILR Follow Up Start: 11-27-2022 End: 11-27-2022 Patient encounter procedure Rem Device [facility] Start: 11-20-2022 End: 11-20-2022 Patient encounter procedure Isabel Davenport MD Work Phone: [facility] Comment on above: Essential hypertensi on (Primary Dx); Type 2 diabetes mellitus without complication, without long-term current use of insulin (HCC); PFO (patent foramen ovale); Acquired hypothyroidism; History of stroke; Occipital stroke ([facility]); Visual impairment; Leg length discrepancy; Encounter for immunization; Encounter for screening fecal occult blood testing; Screening for HIV (human immunodeficiency virus) Start: 11-19-2022 Orders Only Fifi preciado MD Work Phone: Cardiology Comment on above: PFO (patent foramen ovale) (Primary Dx); Primary hypertension; Hypertension, unspecified type Start: 11-15-2022 Refill Merari Israel Work Phone: [facility] Comment on above: Refill Request Start: 11-10-2022 Refill Vadim Sid A PRN.[employer] EXECUTIVE SECURITY Work Phone: [facility] Comment on above: Refill Request Start: 10-28-2022 End: 11-01-2022 Follow-up encounter Rem [facility] GENERAL DEVICE [facility] Comment on above: Remote ILR Follow Up Start: 10-28-2022 End: 11-01-2022 Patient encounter procedure Rem Device [facility] Start: 10-23-2022 Telephone encounter Isabel Davenport MD Work Phone: [facility] Comment on above: Received Outside Med ical Records ([facility]) Start: 10-22-2022 End: 10-22-2022 Emergency department patient visit [facility] Start: 10-22-2022 Refill Zenobia malik PA-C Work Phone: [facility] Comment on above: Refill Request Start: 09-28-2022 End: 09-28-2022 Follow-up encounter [facility] DEVICE [facility] Comment on above: Remote Pacemaker Fol low Up Start: 09-28-2022 End: 09-28-2022 Patient encounter procedure Rem Device [facility] Start: 09-09-2022 End: 09-10-2022 ambulatory Covid Vaccine [place] COVID Vaccine Comment on above: Arrived Start: 09-05-2022 End: 09-05-2022 Patient encounter procedure Jaspreet Acuña GYPSUM BLOCK SETTER.[employer] EXECUTIVE SECURITY Work Phone: [facility] Comment on above: Suspected COVID-19 v irus infection (Primary Dx); Acute maxillary sinusitis, recurrence not specified Start: 08-29-2022 End: 08-29-2022 Follow-up encounter Rem [facility] GENERAL DEVICE [facility] Comment on above: Remote ILR Follow Up Start: 08-29-2022 End: 08-29-2022 Patient encounter procedure Rem Device [facility] Start: 08-12-2022 End: 08-12-2022 ambulatory Covid Vaccine [place] COVID Vaccine Comment on above: Arrived Start: 08-12-2022 End: 08-13-2022 ambulatory ISABEL DAVENPORT Facility:[facility] Start: 08-02-2022 Orders Only Fifi preciado MD Work Phone: Cardiology Comment on above: Primary hypertension (Primary Dx) Start: 07-21-2022 End: 07-21-2022 Patient encounter procedure Parish Koch MD Work Phone: [facility] [place] Comment on above: PFO (patent foramen ovale) (Primary Dx); Primary hypertension; Mixed hyperlipidemia; 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, unspecified blood vessel laterality (HCC) Start: 07-14-2022 Telephone encounter Isabel Davenport MD Work Phone: [facility] Comment on above: Orders Start: 07-12-2022 End: 07-12-2022 Patient encounter procedure Antonio Sanford OD Work Phone: Ophthalmology Comment on above: Homonymous hemianops ia, left (Primary Dx); Occipital stroke (HCC); Type 2 diabetes mellitus without retinopathy (HCC); Presbyopia Start: 06-30-2022 End: 06-30-2022 Follow-up encounter Rem [facility] GENERAL DEVICE [facility] Comment on above: Remote ILR Follow Up Start: 06-30-2022 End: 06-30-2022 Patient encounter procedure Rem Device [facility] Start: 06-14-2022 End: 06-14-2022 Patient encounter procedure Merari Camarillo MD Work Phone: [facility] Comment on above: History of stroke (P rimary Dx); Essential hypertension; PFO (patent foramen ovale); Mixed hyperlipidemia Start: 06-13-2022 ambulatory Isabel chan MD Work Phone: [facility] Medicine [facility] [place] Start: 05-03-2022 ambulatory Isabel chan MD Work Phone: [facility] [place] Start: 04-01-2022 End: 04-01-2022 Follow-up encounter Rem [facility] Comment on above: Remote ILR Follow Up Start: 04-01-2022 End: 04-01-2022 Patient encounter procedure Rem Device [facility] Start: 03-15-2022 Telephone encounter Jennie mckeon APRN.[employer]UTIONS EXECUTIVE SECURITY Work Phone: [facility] [place] Comment on above: Cardiac Clearance Start: 03-14-2022 End: 03-14-2022 Patient encounter procedure Jennie Sosa GYPSUM BLOCK SETTER.SOLUTIONS EXECUTIVE SECURITY Work Phone: [facility] Comment on above: Pre-operative cardio vascular examination (Primary Dx); Essential hypertension; Mixed hyperlipidemia; PFO (patent foramen ovale); Cerebrovascular accident (CVA), unspecified mechanism (HCC) Start: 03-14-2022 End: 03-14-2022 Patient encounter status Jennie Sosa GYPSUM BLOCK SETTER.SOLUTIONS EXECUTIVE SECURITY Work Phone: [facility] Start: 03-02-2022 End: 03-02-2022 Follow-up encounter Rem [facility]ICE [facility]INIC Comment on above: Remote Pacemaker Fol low Up Start: 03-02-2022 End: 03-02-2022 Patient encounter procedure Rem Device [facility] Start: 03-01-2022 Telephone encounter Merari lemos MD Work Phone: [facility] [place] Comment on above: Cardiac Clearance Start: 02-18-2022 End: 02-18-2022 Patient encounter procedure Danette Jessica GYPSUM BLOCK SETTER.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 Work Phone: Start: 05-14-2019 Patient encounter procedure MERARI MARQUISE Facility:[facility] Start: 05-05-2019 Patient encounter procedure FERNANDO ROSAS Facility:[facility] Start: 03-03-2019 End: 03-03-2019 Patient encounter procedure CORTEZ FORRESTER Facility:[facility] Start: 02-05-2019 End: 02-05-2019 Patient encounter procedure MERARI MARQUISE Facility:[facility] Start: 01-19-2019 Evaluation and management of inpatient UNKNOWN PROVIDER [facility] Start: 01-16-2019 End: 01-16-2019 Emergency department patient visit UNKNOWN PROVIDER [facility] Procedures Date Procedure Procedure Detail Performing Clinician Start: 03-09-2025 Colonoscopy flx dx w/collj spec when pfrmd Vadim Teixeira GYPSUM BLOCK SETTER.[employer] EXECUTIVE SECURITY Work Phone: Start: 03-09-2025 Colonoscopy Jemima Winn MD Work Phone: Start: 11-11-2024 Radiologic exam chest 2 views Eneida Loyola PA Work Phone: Start: 01-08-2024 Hemoglobin A1c/Hemoglobin.total in Blood Isabel Davenport MD Work Phone: Start: 01-08-2024 INFLUENZA VACCINE, AGE 6 MO - 64 YR, QUADRIVALENT (AFLURIA, FLULAVAL, FLUZONE) Isabel Davenport MD Work Phone: Start: 01-05-2023 Mammography Mammography Coordina tor Start: 10-22-2022 Plain chest X-ray Start: 09-09-2022 PFIZER-BIONTECH COVID-19 PRIMARY SERIES VACCINE, AGE 12+ YR Sj Mccarthy MD Work Phone: Start: 09-05-2022 COVID WITH FLUA+B, ROUTINE Jaspreet Acuña GYPSUM BLOCK SETTER.SOLUTIONS EXECUTIVE SECURITY Work Phone: Start: 08-12-2022 PFIZER-BIONTECH COVID-19 PRIMARY SERIES VACCINE, AGE 12+ YR Sj Mccarthy MD Work Phone: Start: 07-12-2022 Visual field xm uni/bi w/interp extended exam Antonio Christina OD Work Phone: Start: 03-19-2018 Mammography Danette Lopez GYPSUM BLOCK SETTER.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 Start: 02-27-2026 Screening for malignant neoplasm of breast Mammogram Screening [facility] Start: 02-16-2026 BP Controlled (<130/80) BP Controlled (<130/80) [facility] Start: 02-10-2026 Screening for malignant neoplasm of colon [facility] Start: 01-05-2026 Annual PCP Team Chronic Disease Visit Annual PCP Team Chronic Disease Visit [facility] Start: 01-05-2026 Diabetic foot examination Diabetic Foot Exam [facility] Start: 01-02-2026 Hepatitis B surface antibody level LDL Cholesterol [facility] Start: 09-28-2025 End: 09-28-2025 Patient encounter procedure 09/28/2025 9:00 AM EST [facility] [address] [place] [address] Merari Camarillo MD [address] [place], [place] [id number] 6 month follow up [facility] Comment on above: 6 month follow up Start: 07-06-2025 Influenza vaccination Influenza Vaccine (Season Ended) [facility] Start: 04-21-2025 End: 04-21-2025 Patient encounter procedure 04/21/2025 10:30 AM EDT Office Visit Allergy [address] [place] [address] [place] [address] [place] [address] HIVES FOLLOW UP Allergy Comment on above: HIVES FOLLOW UP Start: 04-14-2025 Hepatitis B screening Urine Albumin:Creatinine Ratio [facility] Start: 04-09-2025 Subsequent hospital visit by physician 04/09/2025 Hospital Encounter [facility] [address] [place] [address] Belén Alcala MD [address] [place] [id number] History of loop recorder [Z98.890] [facility] Comment on above: History of loop recorder [Z98.890] Start: 04-01-2025 Hemoglobin A1c measurement HbA1C [facility] Start: 03-28-2025 Glaucoma screening Dilated Retinal Exam [facility] Start: 03-09-2025 End: 03-09-2025 Patient encounter procedure 03/09/2025 12:30 PM EDT Appointment Ambulatory Surgery [address] [place] [address] Positive fecal occult blood test [R19.5] Ambulatory Surgery Comment on above: Positive fecal occult blood test [R19.5] Start: 03-09-2025 End: 03-09-2025 Patient encounter procedure Ambulatory Surgery Comment on above: colonoscopy Positive fecal occul t blood test Start: 03-03-2025 End: 03-03-2025 Anesthesia consultation 03/03/2025 11:59 PM EDT Anesthesia Event Ambulatory Surgery [address] [place] [address] Miranda Hernandez APRN.ORDER FILLER [address] [place] [address] Ambulatory Surgery Start: 02-27-2025 End: 02-27-2025 Patient encounter procedure 02/27/2025 7:50 AM EDT Appointment Mammogram [address] [place] [address] Mammogram Start: 02-26-2025 End: 02-04-2026 MG Breast Screening THAD SCREENING Radiology Routine Screening mammogram for breast cancer Expected: 02/26/2025, Expires: 02/04/2026 [facility] Work Phone: Comment on above: Expected: 02/26/2025, Expires: Start: 02-25-2025 Screening for malignant neoplasm of breast Mammogram Screening [facility] Start: 02-16-2025 End: 02-16-2025 Patient encounter procedure 02/16/2025 10:00 AM EDT Office Visit [facility] [address] [place] [address] Phyllis Bernardo APRN.[facility] [address], [address] [place] [address] overdue 2 month follow up jt [facility] Comment on above: overdue 2 month follow up jt Start: 01-21-2025 End: 01-21-2025 Patient encounter procedure 01/21/2025 11:00 AM EDT Office Visit [facility] [address] [place] [address] Merari Camarillo MD [address] [place], [place] [id number] overdue 2 month follow up [facility] Comment on above: overdue 2 month follow up Start: 01-07-2025 Annual PCP Team Chronic Disease Visit Annual PCP Team Chronic Disease Visit [facility] Start: 01-07-2025 Diabetic foot examination Diabetic Foot Exam [facility] Start: 01-06-2025 Hepatitis B surface antibody level LDL Cholesterol [facility] Start: 01-05-2025 End: 01-05-2025 Patient encounter procedure 01/05/2025 9:20 AM EST Office Visit Family [address] [place] [address] Isabel Davenport MD [address] [place] [address] [place] [address] f/u [facility] Comment on above: f/u Start: 01-02-2025 End: 01-02-2025 Results Only 01/02/2025 7:30 AM EST Results Only [facility] [address] [facility] [place] [address] 2 orders [facility] Comment on above: 2 orders Start: 12-31-2024 Annual PCP Team Chronic Disease Visit Annual PCP Team Chronic Disease Visit [facility] Start: 12-23-2024 End: 03-24-2025 CBC panel - Blood by Automated count COMPLETE BLOOD COUNT Lab Routine Diabetes mellitus (HCC) Expected: 12/23/2024, Expires: 03/24/2025 [facility] Work Phone: Comment on above: Expected: 12/23/2024, Expires: Start: 12-17-2024 End: 03-18-2025 Hemoglobin A1c in Blood HEMOGLOBIN A1C Lab Routine Type 2 diabetes mellitus without complication, without long-term current use of insulin (HCC) Expected: 12/17/2024, Expires: 03/18/2025 [facility] Comment on above: Expected: 12/17/2024, Expires: Start: 12-17-2024 End: 03-18-2025 Lipid 1996 panel - Serum or Plasma LIPID PANEL BASIC Lab Routine Mixed hyperlipidemia Expected: 12/17/2024, Expires: 03/18/2025 [facility] Work Phone: Comment on above: Expected: 12/17/2024, Expires: Start: 09-22-2024 End: 09-22-2024 Patient encounter procedure 09/22/2024 2:30 PM EST Office Visit [facility] General Cardiology [place] [address] [facility] [address] [place], [place] [address] Jackie Smith APRN.[employer] EXECUTIVE SECURITY [address] [place] [address] 2 month follow up [facility] Comment on above: 2 month follow up Start: 07-15-2024 Hemoglobin A1c measurement HbA1C [facility] Start: 07-09-2024 End: 09-30-2025 [facility] BINOCULAR VISUAL FIELD [facility] BINOCULAR VISUAL FIELD OPHT Imaging Routine Low vision right eye category 1, low vision left eye category 1 Homonymous hemianopsia, left Expected: 07/09/2024, Expires: 09/30/2025 [facility] Work Phone: Comment on above: Expected: 07/09/2024, Expires: Start: 07-06-2024 Covid-19 Vaccine ( season) Covid-19 Vaccine ( season) [facility] Start: 07-06-2024 Influenza vaccination Influenza Vaccine (#1) [facility] Start: 06-11-2024 End: 06-11-2024 Patient encounter procedure [facility] Comment on above: Overdue 6 month f/u Start: 04-14-2024 End: 04-14-2024 ambulatory 04/14/2024 7:00 AM EDT Results Only Melissa Taylor [facility] [address] [place] [address] Melissa [place] [facility] Start: 04-09-2024 End: 07-09-2024 ALBUMIN/CREAT RATIO RND UR ALBUMIN/CREAT RATIO RND UR Lab Routine Type 2 diabetes mellitus without complication, without long-term current use of insulin (HCC) Expected: 04/09/2024, Expires: 07/09/2024 [facility] Work Phone: Comment on above: Expected: 04/09/2024, Expires: Start: 04-09-2024 End: 07-09-2024 Comprehensive metabolic 2000 panel - Serum or Plasma COMP METABOLIC PANEL Lab Routine Type 2 diabetes mellitus without complication, without long-term current use of insulin (HCC) Essential hypertension Expected: 04/09/2024, Expires: 07/09/2024 [facility] Work Phone: Comment on above: Expected: 04/09/2024, Expires: Start: 04-09-2024 End: 07-09-2024 Hemoglobin A1c in Blood HGB A1C Lab Routine Type 2 diabetes mellitus without complication, with no history of insulin use (HCC) Expected: 04/09/2024, Expires: 07/09/2024 [facility] Work Phone: Comment on above: Expected: 04/09/2024, Expires: Start: 04-09-2024 Hemoglobin A1c measurement HbA1C [facility] Start: 04-09-2024 End: 07-09-2024 HIV 1+2 Ab [Presence] in Serum or Plasma by Immunoassay HIV 1 2 COMBO(AG/AB),WITH REFLEX TO DIFFERENTIATION Lab Routine Screening for HIV (human immunodeficiency virus) Expected: 04/09/2024, Expires: 07/09/2024 [facility] Work Phone: Comment on above: Expected: 04/09/2024, Expires: Start: 04-09-2024 End: 07-09-2024 Thyrotropin [Units/volume] in Serum or Plasma TSH BLD Lab Routine Acquired hypothyroidism Expected: 04/09/2024, Expires: 07/09/2024 [facility] Work Phone: Comment on above: Expected: 04/09/2024, Expires: Start: 03-28-2024 End: 03-28-2024 Patient encounter procedure 03/28/2024 10:00 AM EDT Office Visit [facility] Ophthalmology [address] [place], [place] [id number] Antonio Christina, OD [address] [place] [address] Routine eye exam Ophthalmology Comment on above: Routine eye exam Start: 03-20-2024 End: 03-20-2024 ambulatory 03/20/2024 8:00 AM EDT [facility] [address] [place] [address] Merari Camarillo MD [address] [place] [address] Overdue 6 month f/u, NI 12/25/22 [facility] Comment on above: Overdue 6 month f/u, NI 12/25/22 Start: 03-08-2024 Hzv zoster vacc recombinant adjuvanted im njx ZOSTER VACCINE, RECOMBINANT (SHINGRIX) Immunization/Injection Routine Encounter for immunization Expected: 03/08/2024 [facility] Work Phone: Comment on above: Expected: 03/08/2024 Start: 03-04-2024 Shingrix Vaccine (2 of 2) Shingrix Vaccine (2 of 2) [facility] Start: 01-06-[address] [facility] Start: 01-06-2024 Screening for malignant neoplasm of breast Mammogram Screening [facility] Start: 11-20-2023 ANNUAL PCP TEAM CHRONIC DISEASE VISIT ANNUAL PCP TEAM CHRONIC DISEASE VISIT [facility] Start: 11-14-2023 Hepatitis B surface antibody level LDL CHOLESTEROL [facility] Start: 09-05-2023 BP CONTROLLED (<130/80) BP CONTROLLED (<130/80) [facility] Start: 07-12-2023 Glaucoma screening Dilated Retinal Exam [facility] Start: 07-12-2023 Hepatitis C antibody, confirmatory test DILATED RETINAL EXAM [facility] Start: 07-06-2023 Covid-19 Vaccine ( season) Covid-19 Vaccine () [facility] Start: 07-06-[address] [facility] Start: 06-28-2023 3 comp foot exam completed DIABETIC FOOT EXAM [facility] Start: 06-28-2023 ANNUAL PCP TEAM CHRONIC DISEASE VISIT ANNUAL PCP TEAM CHRONIC DISEASE VISIT [facility] Start: 06-28-2023 BP CONTROLLED (<130/80) BP CONTROLLED (<130/80) [facility] inic Start: 06-28-2023 Diabetic foot examination Diabetic Foot Exam [facility] Start: 06-28-2023 Urine microalbumin profile DTAP,TDAP,TD (2 - Td or Tdap) [facility] Comment on above: Postponed from 04/28/2019 (Declined at t his time) Start: 06-26-2023 Hepatitis B screening URINE ALBUMIN:CREATININE RATIO [facility] Start: 05-05-2023 End: 07-05-2023 Basic metabolic 2000 panel - Serum or Plasma BASIC METABOLIC PNL Lab Routine Essential hypertension Expected: 05/05/2023, Expires: 07/05/2023 [facility] Work Phone: Comment on above: Expected: 05/05/2023, Expires: 3 Start: 05-05-2023 End: 07-05-2023 Hemoglobin A1c in Blood HGB A1C Lab Routine Type 2 diabetes mellitus without complication, without long-term current use of insulin (HCC) Expected: 05/05/2023, Expires: 07/05/2023 [facility] Work Phone: Comment on above: Expected: 05/05/2023, Expires: 3 Start: 02-19-2023 End: 04-21-2023 CBC W Auto Differential panel - Blood CBC + DIFF Lab Routine PFO (patent foramen ovale) Expected: 02/19/2023, Expires: 04/21/2023 [facility] Work Phone: Comment on above: Expected: 02/19/2023, Expires: 3 Start: 02-19-2023 End: 04-21-2023 Comprehensive metabolic 2000 panel - Serum or Plasma COMP METABOLIC PANEL Lab Routine PFO (patent foramen ovale) Expected: 02/19/2023, Expires: 04/21/2023 [facility] Work Phone: Comment on above: Expected: 02/19/2023, Expires: 3 Start: 02-19-2023 End: 04-21-2023 Lipid 1996 panel - Serum or Plasma LIPID PANEL BASIC Lab Routine PFO (patent foramen ovale) Expected: 02/19/2023, Expires: 04/21/2023 [facility] Work Phone: Comment on above: Expected: 02/19/2023, Expires: 3 Start: 02-19-2023 End: 04-21-2023 Natriuretic peptide.B prohormone N-Terminal [Mass/volume] in Serum or Plasma NT PRO BNP Lab Routine PFO (patent foramen ovale) Expected: 02/19/2023, Expires: 04/21/2023 [facility] Work Phone: Comment on above: Expected: 02/19/2023, Expires: 3 Start: 02-12-2023 Hemoglobin A1c measurement HbA1C [facility] Start: 02-12-2023 Hemoglobin A1c/Hemoglobin.total in Blood HBA1C [facility] Start: 11-19-2022 End: 01-19-2023 CBC panel - Blood by Automated count CBC Lab Routine PFO (patent foramen ovale) Primary hypertension Hypertension, unspecified type Expected: 11/19/2022, Expires: 01/19/2023 [facility] Work Phone: Comment on above: Expected: 11/19/2022, Expires: 3 Start: 11-19-2022 End: 01-19-2023 Comprehensive metabolic 2000 panel - Serum or Plasma COMP METABOLIC PANEL Lab Routine PFO (patent foramen ovale) Primary hypertension Hypertension, unspecified type Expected: 11/19/2022, Expires: 01/19/2023 [facility] Work Phone: Comment on above: Expected: 11/19/2022, Expires: 3 Start: 11-19-2022 End: 01-19-2023 Natriuretic peptide.B prohormone N-Terminal [Mass/volume] in Serum or Plasma NT PRO BNP Lab Routine PFO (patent foramen ovale) Primary hypertension Hypertension, unspecified type Expected: 11/19/2022, Expires: 01/19/2023 [facility] Work Phone: Comment on above: Expected: 11/19/2022, Expires: 3 Start: 11-04-2022 COVID-19 VACCINE (3 - Booster for Pfizer series) COVID-19 VACCINE (3 - Booster for Pfizer series) [facility] Start: 09-26-2022 Hemoglobin A1c/Hemoglobin.total in Blood HBA1C [facility] Start: 09-02-2022 COVID-19 VACCINE (2 - Pfizer series) COVID-19 VACCINE (2 - Pfizer series) [facility] Start: 09-02-2022 PFIZER SARS-COV-2 VACCINE 2D DOSE APPT PFIZER SARS-COV-2 VACCINE 2D DOSE APPT Procedures Routine Expected: 09/02/2022 [facility] Work Phone: Comment on above: Expected: 09/02/2022 Start: 08-05-2022 PNEUMOCOCCAL (1 - PCV) PNEUMOCOCCAL (1 - PCV) [facility] Comment on above: Postponed from 1974 (Declined at t his time) Start: 08-02-2022 End: 12-05-2022 CBC W Auto Differential panel - Blood CBC + DIFF Lab Routine Primary hypertension Expected: 08/02/2022, Expires: 12/05/2022 [facility] Work Phone: Comment on above: Expected: 08/02/2022, Expires: 3 Start: 08-02-2022 End: 12-05-2022 Comprehensive metabolic 2000 panel - Serum or Plasma COMP METABOLIC PANEL Lab Routine Primary hypertension Expected: 08/02/2022, Expires: 12/05/2022 [facility] Work Phone: Comment on above: Expected: 08/02/2022, Expires: 3 Start: 08-02-2022 End: 12-05-2022 Lipid 1996 panel - Serum or Plasma LIPID PANEL BASIC Lab Routine Primary hypertension Expected: 08/02/2022, Expires: 12/05/2022 [facility] Work Phone: Comment on above: Expected: 08/02/2022, Expires: 3 Start: 08-02-2022 End: 12-05-2022 Natriuretic peptide.B prohormone N-Terminal [Mass/volume] in Serum or Plasma NT PRO BNP Lab Routine Primary hypertension Expected: 08/02/2022, Expires: 12/05/2022 [facility] Work Phone: Comment on above: Expected: 08/02/2022, Expires: 3 Start: 07-06-2022 COVID-19 VACCINE (#1) COVID-19 VACCINE (#1) [facility] Comment on above: Postponed from 01[birth year]02/1969 (Declined at t his time) Start: 07-06-[address] [facility] Start: 06-13-2022 End: 08-13-2022 ALBUMIN/CREAT RATIO RND UR ALBUMIN/CREAT RATIO RND UR Lab Routine Diabetes mellitus (HCC) Expected: 06/13/2022, Expires: 08/13/2022 [facility] Work Phone: Comment on above: Expected: 06/13/2022, Expires: 2 Start: 06-13-2022 End: 08-13-2022 CBC panel - Blood by Automated count CBC Lab Routine Diabetes mellitus (HCC) Expected: 06/13/2022, Expires: 08/13/2022 [facility] Work Phone: Comment on above: Expected: 06/13/2022, Expires: 2 Start: 06-13-2022 End: 08-13-2022 Hemoglobin A1c in Blood HGB A1C Lab Routine Diabetes mellitus (HCC) Expected: 06/13/2022, Expires: 08/13/2022 [facility] Work Phone: Comment on above: Expected: 06/13/2022, Expires: 2 Start: 06-13-2022 End: 08-13-2022 SCHEDULE LAB TESTING SCHEDULE LAB TESTING Lab Routine Expected: 06/13/2022, Expires: 08/13/2022 [facility] Work Phone: Comment on above: Expected: 06/13/2022, Expires: 2 Start: 06-13-2022 End: 08-13-2022 Thyrotropin [Units/volume] in Serum or Plasma TSH BLD Lab Routine Acquired hypothyroidism Expected: 06/13/2022, Expires: 08/13/2022 [facility] Work Phone: Comment on above: Expected: 06/13/2022, Expires: 2 Start: 04-20-2022 ANNUAL PCP TEAM CHRONIC DISEASE VISIT ANNUAL PCP TEAM CHRONIC DISEASE VISIT [facility] Start: 01-06-2022 Hepatitis B surface antibody level LDL CHOLESTEROL [facility] Start: 10-20-2021 Hemoglobin A1c/Hemoglobin.total in Blood HBA1C [facility] Start: 01-17-2020 Hepatitis C antibody, confirmatory test DILATED RETINAL EXAM [facility] Start: 12-18-2019 Hepatitis B screening URINE ALBUMIN:CREATININE RATIO [facility] Start: 12-12-2019 3 comp foot exam completed DIABETIC FOOT EXAM [facility] Start: 04-28-[address] [facility] Start: 03-19-[address] [facility] Start: 2018 SHINGRIX VACCINE (1 of 2) SHINGRIX VACCINE (1 of 2) [facility] Start: 2013 COLOGUARD (FIT-DNA) COLOGUARD (FIT-DNA) [facility] Start: [address] [facility] Start: 2013 COLORECTAL CANCER SCREENING COLORECTAL CANCER SCREENING [facility] Start: [address] [facility] Start: 2013 FECAL OCCULT BLOOD FECAL OCCULT BLOOD [facility] Start: 2013 Screening for malignant neoplasm of colon [facility] Start: [address] [facility] Start: 1987 HEPATITIS B (1 of 3 - Risk 3-dose series) HEPATITIS B (1 of 3 - Risk 3-dose series) [facility] Start: 1987 Hepatitis B Vaccine (1 of 3 - 19+ 3-dose series) Hepatitis B Vaccine (1 of 3 - 19+ 3-dose series) [facility] Start: 1986 Anxiety Screening Anxiety Screening [facility] Start: 1986 BP CONTROLLED (<130/80) BP CONTROLLED (<130/80) [facility] Start: 1986 HIV SCREENING HIV SCREENING [facility] Start: 1986 HIV screening HIV Screening [facility] Start: [address] [facility] Start: 1984 ONE PNEUMOVAX PRIOR TO AGE 63 ONE PNEUMOVAX PRIOR TO AGE 63 [facility] Start: 1974 PNEUMOCOCCAL (1 - PCV) PNEUMOCOCCAL (1 - PCV) [facility] Start: 1973 COVID-19 VACCINE (#1) COVID-19 VACCINE (#1) [facility] Start: 1973 COVID-19 VACCINE (1) COVID-19 VACCINE (1) [facility] Start: 01-02-1969 COVID-19 VACCINE (#1) COVID-19 VACCINE (#1) [facility] Start: 1968 HEPATITIS B (1 of 3 - 3-dose series) HEPATITIS B (1 of 3 - 3-dose series) [facility] Start: 1968 Hepatitis B Vaccine (1 of 3 - 3-dose series) Hepatitis B Vaccine (1 of 3 - 3-dose series) [facility] COVID & INFLUENZA A/ B & RSV PCR, ROUTINE COVID & INFLUENZA A/B & RSV PCR, ROUTINE Microbiology Routine URI, acute Ordered: 11/11/2024 [facility] Work Phone: Comment on above: Ordered: 11/11/2024 End: 02-26-2024 DBT Breast - bilateral screening [facility] Work Phone: Comment on above: ONCE for 1 Occurrences starting 02/26/20 24 until 02/26/2024 ECG B/O W INTERP (ME D OFFICE) ECG B/O W INTERP (MED OFFICE) ECG Routine Pre-operative cardiovascular examination Ordered: 03/14/2022 [facility] Work Phone: Comment on above: Ordered: 03/14/2022 ECG B/O W INTERP (ME D OFFICE) ECG B/O W INTERP (MED OFFICE) ECG Routine PFO (patent foramen ovale) Ordered: 07/21/2022 [facility] Work Phone: Comment on above: Ordered: 07/21/2022 End: 08-02-2023 ECG COMPLETE ECG COMPLETE ECG Routine Primary hypertension 1 Occurrences starting 08/02/2022 until 08/02/2023 [facility] Work Phone: Comment on above: 1 Occurrences starting 08/02/2022 until 08/02/2023 End: 11-19-2023 ECG COMPLETE ECG COMPLETE ECG Routine PFO (patent foramen ovale) Primary hypertension Hypertension, unspecified type 1 Occurrences starting 11/19/2022 until 11/19/2023 [facility] Work Phone: Comment on above: 1 Occurrences starting 11/19/2022 until 11/19/2023 End: 08-02-2023 Echocardiography ECHO Cardiology Routine Primary hypertension 1 Occurrences starting 08/02/2022 until 08/02/2023 [facility] Work Phone: Comment on above: 1 Occurrences starting 08/02/2022 until 08/02/2023 End: 11-19-2023 Echocardiography ECHO Cardiology Routine PFO (patent foramen ovale) Primary hypertension Hypertension, unspecified type 1 Occurrences starting 11/19/2022 until 11/19/2023 [facility] Work Phone: Comment on above: 1 Occurrences starting 11/19/2022 until 11/19/2023 Hemoglobin.gastroint crispin nal.lower [Presence] in Stool by Immunoassay FECAL OCCULT BLOOD TEST Lab Routine Encounter for screening fecal occult blood testing Ordered: 11/20/2022 [facility] Work Phone: Comment on above: Ordered: 11/20/2022 Hemoglobin.gastroint crispin nal.lower [Presence] in Stool by Immunoassay FECAL OCCULT BLOOD TEST Lab Routine Encounter for screening fecal occult blood testing Ordered: 01/08/2024 [facility] Work Phone: Comment on above: Ordered: 01/08/2024 Hemoglobin.gastroint crispin nal.lower [Presence] in Stool by Immunoassay IMMUNOCHEMICAL FECAL OCCULT BLOOD TEST Lab Routine Encounter for screening fecal occult blood testing Ordered: 01/05/2025 [facility] Comment on above: Ordered: 01/05/2025 HIV 1+2 Ab [Presence ] in Serum or Plasma by Immunoassay HIV 1 2 COMBO(AG/AB),WITH REFLEX TO DIFFERENTIATION Lab Routine Screening for HIV (human immunodeficiency virus) Ordered: 11/20/2022 [facility] Work Phone: Comment on above: Ordered: 11/20/2022 End: 06-02-2023 THAD SCREENING [facility] THAD SCREENING [facility] Radiology Routine Encounter for screening mammogram for breast cancer 1 Occurrences starting 05/03/2022 until 06/02/2023 [facility] Work Phone: Comment on above: 1 Occurrences starting 05/03/2022 until 06/02/2023 End: 02-06-2025 MG Breast Screening THAD SCREENING Radiology Routine Encounter for screening mammogram for breast cancer 1 Occurrences starting 01/08/2024 until 02/06/2025 [facility] Work Phone: Comment on above: 1 Occurrences starting 01/08/2024 until 02/06/2025 Patient Education ED Influenza (Adult) [facility] Work Phone: Patient referral [facility] Work Phone: PT PLAN OF CARE CERTIFICATION PT PLAN OF CARE CERTIFICATION Procedures Routine Leg length discrepancy Ordered: 03/06/2023 [facility] Work Phone: Comment on above: Ordered: 03/06/2023 Removal subcutaneous cardiac rhythm monitor REMOVAL SUBCUTANEOUS CARDIAC RHYTHM MONITOR History of loop recorder [place] [facility] SARS-CoV-2 & FLU Ant igen (Rapid) SARS-CoV-2 & FLU Antigen (Rapid) [facility] Work Phone: End: 02-28-2024 XR HIP GENERAL 3V PELV/AP/LAT RIGHT XR HIP GENERAL 3V PELV/AP/LAT RIGHT Radiology Routine Pain in right hip 1 Occurrences starting 01/29/2023 until 02/28/2024 [facility] Work Phone: Comment on above: 1 Occurrences starting 01/29/2023 until 02/28/2024 XR HIP GENERAL 3V PELV/AP/LAT RIGHT XR HIP GENERAL 3V PELV/AP/LAT RIGHT Radiology Routine Pain in right hip 01/29/2023 2:20 PM EDT [facility] Work Phone: [facility] Immunizations Immunization Date Immunization Notes Care Provider Fa [facility] 01-08-2024 influenza, injectabl e, quadrivalent, contains preservative Isabel Davenport MD Work Phone: [facility] 01-08-2024 zoster vaccine recombinant Isabel Davenport MD Work Phone: [facility] 01-08-2024 influenza virus vaccine, unspecified formulation Isabel Davenport MD Work Phone: [facility] 11-20-2022 pneumococcal (PCV20) vaccine, 20 valent (PREVNAR 20) Isabel Davenport MD Work Phone: [facility] 11-20-2022 pneumococcal Conjugate, unspecified formulation Isabel Davenport MD Work Phone: [facility] Work Phone: 09-09-2022 COVID-19 original vaccine, age 12+ yr, monovalent (PFIZER-BIONTTaskmit - NAIR TOP) [facility]: 08-12-2022 COVID-19 original vaccine, age 12+ yr, monovalent (PFIZER-BIONTTaskmit - NAIR TOP) Covid [place] [facility] 12-12-2018 influenza virus vaccine, unspecified formulation Isabel Davenport MD Work Phone: [facility] 09-05-2012 influenza virus vaccine, unspecified formulation Danette Lopez [employer] Work Phone: [facility] 04-28-2009 tetanus toxoid, reduced diphtheria toxoid, and acellular pertussis vaccine, adsorbed Danette Lopez [employer] Work Phone: [facility] Payers Date Payer Category Payer Self-pay [id number] 2023 Blue [employer] Blue Shield BLUE CARD PPO OOS [id number] 2023 Unknown [id number] 2022 Unknown 2020 Medicaid [place] [id number] 2020-Present [phone] [address] [place] [address] Medicaid [id number] 2020 Medicaid [id number] 2020 Medicaid [id number] 2007 Private Health Insurance [employer]ET[employer] [id number] 2007 Unknown [id number] 1968 Unknown [id number] 1968 Unknown [id number] 1968 Unknown [id number] 1968 Unknown [id number] 1968 Unknown [id number] Unknown [id number] Social History Date Type Detail Facility Start: [facility]14[facility]2022 [facility] Start: 02-18-2022 End: 03-09-2025 Alcohol intake Current drinker of alcohol (finding) [facility] Start: 05-12-2020 End: 11-20-2022 History SDOH Alcohol Frequency 2 [facility] Start: 05-12-2020 End: 11-20-2022 History SDOH Alcohol Std Drinks 1 [facility] Start: 02-02-2020 End: 07-05-2020 History SDOH Social Connections Phone 3 [facility] Start: 02-02-2020 End: 11-20-2022 History SDOH Social Connections Living 7 [facility] Start: 02-02-2020 History SDOH Stress 4 [facility] Start: 07-05-[address] [facility] Start: 1970 Sex Assigned At Female C [facility] Start: 02-08-2022 End: 07-21-2022 Exposure to SARS-CoV-2 (event) Not sure [facility] Start: 06-14-2022 Tobacco use and exposure Smokeless tobacco non-user [facility] Start: 10-22-2022 [facility] if ever smoked [facility] Work Phone: Start: 11-20-2022 History SDOH Social Connections Get Together 98 [facility] Start: 03-27-2023 End: 12-30-2023 [address] of [address] [facility] Start: 03-27-2023 End: 12-30-2023 [facility] Utilities [facility] Has the [employer], [employer], or water [employer] threatened to shut off services in your home in past 12Mo Yes [facility] How often do you get together with friends or relatives? Patient refused [facility] Are you now , , , , never or living with a partner? Never [facility] How often to you hav e a drink containing alcohol? Monthly or less [facility] How many standard drinks containing alcohol do you have on a typical day? [address] [facility] How often do you hav e 6 or more drinks on 1 occasion? Never [facility] How hard is it for y ou to pay for the very basics like food, housing, medical care, and heating Hard [facility] Do you feel stress - tense, restless, nervous, or anxious, or unable to sleep at night because your mind is troubled all the time - these days [OSQ] Not at all [facility] (I/We) worried wheth er (my/our) food would run out before (I/we) got money to buy more. Never true [facility] In the past 12 month s, was there a time when you were not able to pay the mortgage or rent on time? No [facility] Start: 02-01-2020 Gender identity Identifies as female gender (finding) [facility] Start: 02-01-2020 Sexual orientation Heterosexual (kristine farnsworth) [facility] How hard is it for y ou to pay for the very basics like food, housing, medical care, and heating Somewhat hard [facility] Do you feel stress - tense, restless, nervous, or anxious, or unable to sleep at night because your mind is troubled all the time - these days [OSQ] To some extent [facility] Medical Equipment Procedure Code Equipment Code Equipment Origin al Text Equipment Identifier Dates Test blood sugar (s) 2 times daily. Dx: Type 2 DM - Uncontrolled E11.65 Insulin: No [id number], [id number] Start: 11-13-2022 Comment on above: Test blood sugar(s) 2 times daily. Dx: Type 2 DM - Uncontrolled E11.65 Insulin: No Goals Date Patient Goal Desired Activity /State Personal health goal Functional Status Date Assessment Result Facility 12-11-2022 Are you deaf, or do you have serious difficulty hearing No 12/11/2022 5:04 PM Elisabeth Avina, KELLEN No St[facility] [facility] 12-11-2022 Are you blind, or do you have serious difficulty seeing, even when wearing glasses No 12/11/2022 5:04 PM Elisabeth Avina, KELLEN No [facility] 12-11-2022 Do you have serious difficulty walking or climbing stairs No 12/11/2022 5:04 PM Elisabeth Avina, KELLEN No [facility] 12-11-2022 Do you have difficul ty dressing or bathing No 12/11/2022 5:04 PM Elisabeth Avina, KELLEN No [facility] 12-11-2022 Because of a physica l, mental, or emotional condition, do you have difficulty doing errands alone such as visiting a physician's office or shopping No 12/11/2022 5:04 PM Elisabeth Avina, KELLEN No [facility] Mental Status Date Assessment Result Facility 12-11-2022 Because of a physica l, mental, or emotional condition, do you have serious difficulty concentrating, remembering, or making decisions No 12/11/2022 5:04 PM Elisabeth Avina, KELLEN No [facility] 10-22-2022 Cognitive function Level Of Cons ciousness Awake;Alert;Appropriate;Fol lows Commands [facility] Work Phone: Clinical Notes 01-16-2019 to 03-13-2025 Telephone Encounter - Shelia Terrazas MA - 03/13/2025 11:40 AM EDTTelephone Encounter - Shelia Terrazas MA - 03/13/2025 11:40 AM EDTAl-Jemima Araujo MD - 03/09/2025 9:00 AM EDT Note Date & Type Note Facility 03-13-2025 Telephone encounter Note [place] paperwork faxed today. [facility] 03-13-2025 Miscellaneous Notes [facility] paperwork faxed today. documented in this encounter [facility] 03-09-2025 History and physical note ENDO HISTORY AND PHYSICAL EXAMINATION SHORT FORM EVALUATION DATE: 03/09/2025 EVALUATION TIME: 8:40 AM CHIEF COMPLAINT: Stool Guaiac Positive HPI: This is a 54 year old female who presents with Positive immunochemical fecal occult blood. 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 PAST SURGICAL HISTORY: PAST SURGICAL HISTORY Procedure Laterality Date OOPHORECTOMY PARTIAL/TOTAL UNI/BI 2006 Right PAST SURGICAL HISTORY OF 2007 Excision abdominal mass PAST SURGICAL HISTORY OF 10/14/2008 right foot soft tissue mass excision PAST SURGICAL HISTORY OF 11/03/2010 Left planter fasciotomy PAST SURGICAL HISTORY OF 12/11/2022 PFO VAGINAL HYSTERECTOMY UTERUS 250 GM/< 2006 Hysterectomy, vaginal XTRNL PT ACTIV ECG TRANSMIS W/R&I SOCIAL HISTORY: Social History Tobacco Use Smoking status: Never Smokeless tobacco: Never Vaping Use Vaping status: Never Used Substance Use Topics Alcohol use: Yes Comment: rare Drug use: No FAMILY HISTORY: FAMILY HISTORY Problem Relation Age of Onset Diabetes Mother Diabetes Maternal Grandmother Diabetes Paternal Grandmother other (attention deficit) Son Diabetes Maternal Uncle other (no cardiac hx per pt) Other ALLERGIES: ALLERGIES Allergen Reactions Fish Containing Pro* Hives, Swelling Iodine Unknown Shellfish Derived Other: See Comments Tetanus Vaccines An* Local Reaction MEDICATIONS: Prior to Admission Medications: losartan (COZAAR) 100 mg tablet take 1 tablet by mouth once daily clopidogrel (PLAVIX) 75 mg tablet take 1 tablet by mouth once daily EPINEPHrine (EPIPEN) 0.3 mg/0.3 mL auto-injector Inject 0.3 mL intramuscularly as needed. fexofenadine (DAVID) 180 mg tablet Take 1 tablet daily. Can titrate up to 4 tablets in one day for hives with swelling. Do not exceed 4 tablets in 24 hours. fluticasone (FLONASE) 50 mcg/actuation nasal spray instill 1 TO 2 sprays into each nostril once daily if needed SITagliptin phosphate (JANUVIA) 50 mg tablet Take 1 tablet by mouth once daily. docosanol (ABREVA) 10 % crea Apply to affected area five times a day. atorvastatin (LIPITOR) 40 mg tablet Take 1 tablet by mouth once daily. metoprolol succinate ER (TOPROL XL) 25 mg 24 hr tablet Take 1 tablet by mouth once daily. hydroCHLOROthiazide 25 mg tablet Take 1 tablet by mouth once daily. amLODIPine (NORVASC) 10 mg tablet Take 1 tablet by mouth once daily. metFORMIN (GLUCOPHAGE) 500 mg tablet Take 2 tablets by mouth two times a day with meals. levothyroxine (LEVOXYL) 50 mcg tablet Take 1 tablet by mouth once daily. Take on empty stomach. For Thyroid blood sugar diagnostic (BLOOD GLUCOSE TEST) test strip Test blood sugar(s) 2 times daily. Dx: Type 2 DM - Uncontrolled E11.65 Insulin: No Lancets lancets Test blood sugar(s) 2 times daily. Dx: Type 2 DM - Uncontrolled E11.65 Insulin: No TRUE METRIX GLUCOSE METER Glucose Meter of Choice - Kit - Dx Type 2 DM - Uncontrolled E11.65 Miscellaneous Medical Supply 1 Each once daily. MULTIVITAMIN ORAL Take by mouth once daily. (Patient not taking: Reported on 02/16/2025) aspirin, enteric coated (ASPIRIN, ENTERIC COATED) 81 mg EC tablet take 1 tablet by mouth once daily No current facility-administered medications for this encounter. REVIEW OF SYSTEMS: Respiratory: Negative for smoking, dyspnea, cough, asthma, bronchitis, emphysema Cardiovascular: Negative for chest pain, leg swelling or palpitations. GI: See HPI PHYSICAL EXAM: No data found. General Appearance: well appearing, alert, in no acute distress Lungs: Lungs clear to auscultation. No wheezing, rhonchi, rales. Heart: RRR without murmur, gallop, or rubs. No ectopy Exogenous Class 1 Obesity PLAN OF TREATMENT: Colonoscopy SIGNATURE: Jemima Winn MD PATIENT NAME: Martha Venegas DATE: March 09, 2025 TIME: 8:[address] [facility] Work Phone: 03-09-2025 History and physical note ENDO HISTORY AND PHYSICAL EXAMINATION SHORT FORM EVALUATION DATE: 03/09/2025 EVALUATION TIME: 8:40 AM CHIEF COMPLAINT: Stool Guaiac Positive HPI: This is a 54 year old female who presents with Positive immunochemical fecal occult blood. 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 PAST SURGICAL HISTORY: PAST SURGICAL HISTORY Procedure Laterality Date OOPHORECTOMY PARTIAL/TOTAL UNI/BI 2006 Right PAST SURGICAL HISTORY OF 2007 Excision abdominal mass PAST SURGICAL HISTORY OF 10/14/2008 right foot soft tissue mass excision PAST SURGICAL HISTORY OF 11/03/2010 Left planter fasciotomy PAST SURGICAL HISTORY OF 12/11/2022 PFO VAGINAL HYSTERECTOMY UTERUS 250 GM/< 2006 Hysterectomy, vaginal XTRNL PT ACTIV ECG TRANSMIS W/R&I </30 DAYS 08/15/2019 SOCIAL HISTORY: Social History Tobacco Use Smoking status: Never Smokeless tobacco: Never Vaping Use Vaping status: Never Used Substance Use Topics Alcohol use: Yes Comment: rare Drug use: No FAMILY HISTORY: FAMILY HISTORY Problem Relation Age of Onset Diabetes Mother Diabetes Maternal Grandmother Diabetes Paternal Grandmother other (attention deficit) Son Diabetes Maternal Uncle other (no cardiac hx per pt) Other ALLERGIES: ALLERGIES Allergen Reactions Fish Containing Pro* Hives, Swelling Iodine Unknown Shellfish Derived Other: See Comments Tetanus Vaccines An* Local Reaction MEDICATIONS: Prior to Admission Medications: losartan (COZAAR) 100 mg tablet take 1 tablet by mouth once daily clopidogrel (PLAVIX) 75 mg tablet take 1 tablet by mouth once daily EPINEPHrine (EPIPEN) 0.3 mg/0.3 mL auto-injector Inject 0.3 mL intramuscularly as needed. fexofenadine (DAVID) 180 mg tablet Take 1 tablet daily. Can titrate up to 4 tablets in one day for hives with swelling. Do not exceed 4 tablets in 24 hours. fluticasone (FLONASE) 50 mcg/actuation nasal spray instill 1 TO 2 sprays into each nostril once daily if needed SITagliptin phosphate (JANUVIA) 50 mg tablet Take 1 tablet by mouth once daily. docosanol (ABREVA) 10 % crea Apply to affected area five times a day. atorvastatin (LIPITOR) 40 mg tablet Take 1 tablet by mouth once daily. metoprolol succinate ER (TOPROL XL) 25 mg 24 hr tablet Take 1 tablet by mouth once daily. hydroCHLOROthiazide 25 mg tablet Take 1 tablet by mouth once daily. amLODIPine (NORVASC) 10 mg tablet Take 1 tablet by mouth once daily. metFORMIN (GLUCOPHAGE) 500 mg tablet Take 2 tablets by mouth two times a day with meals. levothyroxine (LEVOXYL) 50 mcg tablet Take 1 tablet by mouth once daily. Take on empty stomach. For Thyroid blood sugar diagnostic (BLOOD GLUCOSE TEST) test strip Test blood sugar(s) 2 times daily. Dx: Type 2 DM - Uncontrolled E11.65 Insulin: No Lancets lancets Test blood sugar(s) 2 times daily. Dx: Type 2 DM - Uncontrolled E11.65 Insulin: No TRUE METRIX GLUCOSE METER Glucose Meter of Choice - Kit - Dx Type 2 DM - Uncontrolled E11.65 Miscellaneous Medical Supply 1 Each once daily. MULTIVITAMIN ORAL Take by mouth once daily. (Patient not taking: Reported on 02/16/2025) aspirin, enteric coated (ASPIRIN, ENTERIC COATED) 81 mg EC tablet take 1 tablet by mouth once daily No current facility-administered medications for this encounter. REVIEW OF SYSTEMS: Respiratory: Negative for smoking, dyspnea, cough, asthma, bronchitis, emphysema Cardiovascular: Negative for chest pain, leg swelling or palpitations. GI: See HPI PHYSICAL EXAM: No data found. General Appearance: well appearing, alert, in no acute distress Lungs: Lungs clear to auscultation. No wheezing, rhonchi, rales. Heart: RRR without murmur, gallop, or rubs. No ectopy Exogenous Class 1 Obesity PLAN OF TREATMENT: Colonoscopy SIGNATURE: Jemima Winn MD PATIENT NAME: Martha Venegas DATE: March 09, 2025 TIME: 8:40 AM documented in this encounter [facility] 03-09-2025 Nurse Note PRE OP LEARNING ASSESSMENT PROCEDURE/SURGERY: GI PROCEDURES: Colonoscopy READINESS TO LEARN COGNITIVE ABILITY: Alert and oriented MOTIVATION TO LEARN: Eager FAMILY SUPPORT: High - Very involved in pt care PATIENT LEARNS BEST BY: Individual Instruction FACTORS AFFECTING LEARNING: None PHYSICAL LIMITATIONS AFFECTING LEARNING: None Electronically Signed By: Charo Ferrera RN In Department: AMBULATORY SURGERY [facility] 03-09-2025 Nurse Note PRE OP LEARNING ASSESSMENT PROCEDURE/SURGERY: GI PROCEDURES: Colonoscopy READINESS TO LEARN COGNITIVE ABILITY: Alert and oriented MOTIVATION TO LEARN: Eager FAMILY SUPPORT: High - Very involved in pt care PATIENT LEARNS BEST BY: Individual Instruction FACTORS AFFECTING LEARNING: None PHYSICAL LIMITATIONS AFFECTING LEARNING: None Electronically Signed By: Charo Ferrera RN In Department: AMBULATORY SURGERY documented in this encounter [facility] 03-04-2025 Telephone encounter Note [facility] fmla forms received. Placed in pcp inbox for review. [facility] 03-04-2025 Miscellaneous Notes [facility] f[employer] forms received. Placed in pcp inbox for review. Noted, will await receipt of fax Martha is calling Isabel Davenport MD today to advise she is having a procedure on 03/09/2025 , the [facility] paperwork will be coming to request to be off starting 03/07/2025 and 03/08/2025 which are her colonoscopy prep dates as the patient is already off on 03/09/2025. This is just a fyi that this paperwork with be coming from [place] for these two FMLA dates Patient has been identified by name and birthdate. Duration of symptoms: N/A Person calling: self Call patient at: on cell [phone] (home) [phone] (cell) Was an appointment scheduled: No Closing statement: Results or non-symptom based questions: Thank you for calling [facility], your call will be returned within the next business day. Luann Huynh documented in this encounter [facility] 03-03-2025 Telephone encounter Note Noted, will await receipt of fax [facility] 03-03-2025 Telephone encounter Note This patient has been contacted and rescheduled to [facility] Work Phone: 03-03-2025 Miscellaneous Notes This patient has been contacted and rescheduled to [facility] Per Dr. Wade, This pt. needs rescheduled under [facility]. Please reach out to pt and assist in rescheduling. Thank you. Yanet Meyer, RN documented in this encounter [facility] 04-29-2025 Telephone encounter Note Per Dr. Wade, This pt. needs rescheduled under [facility]. Please reach out to pt and assist in rescheduling. Thank you. Yanet Meyer RN [facility] 03-03-2025 Telephone encounter Note Martha is calling Isabel Davenport MD today to advise she is having a procedure on 03/09/2025 , the [facility] paperwork will be coming to request to be off starting 03/07/2025 and 03/08/2025 which are her colonoscopy prep dates as the patient is already off on 03/09/2025. This is just a fyi that this paperwork with be coming from [place] for these two FMLA dates Patient has been identified by name and birthdate. Duration of symptoms: N/A Person calling: self Call patient at: on cell [phone] (home) [phone] (cell) Was an appointment scheduled: No Closing statement: Results or non-symptom based questions: Thank you for calling [facility], your call will be returned within the next business day. Luann Huynh [facility] 02-27-2025 Note HNO ID: [id number] Author: ETHAN ROMERO [employer] Service: ? Author Type: Movement Assembly Final Inspector Type: Progress Notes Filed: 02/27/2025 08:38 Note Text: Radiology Service Progress Note PATIENT NAME: Martha Venegas DATE OF SERVICE: February 27, 2025 TIME: 8:38 AM PATIENT IDENTITY VERIFICATION COMPLETED USING TWO (2) IDENTIFIERS: Name and Date of confirmed by patient verbally. FALL SCREENING: Has the patient had 2 falls in the last year or 1 fall with injury or currently using an Ambulatory Assistive Device (Walker, Cane, Wheelchair, Crutches, etc.)? No PATIENT GENDER DATA: Assigned female at . status: : No status: NO. PATIENT RELEVANT IMPLANT DATA REVIEWED: Not Applicable PATIENT PRESENTS WITH AN IMPLANTABLE OR ATTACHED SUBSCRIPTION AGENT: No RADIOLOGY DEPARTMENT: Mammography PERIPHERAL IV DATA: Not applicable SIGNED BY: Lukasz Sebastian February 27, 2025 8:38 AM [facility] 02-23-2025 Telephone encounter Note Pt's name has been added to [place] procedure board. Colleen Herrera RN [facility] 02-23-2025 Miscellaneous Notes Pt's name has been added to [place] procedure board. Colleen Herrera RN Patient is scheduled for an ILR Removal on 04/[address] Alcala. The hospital will call the day before between 2-5pm with your arrival time. You should not eat or drink after midnight the day before the procedure. 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 Informed of instructions as stated above. Patient verbalized understanding. Gerald Lucas documented in this encounter [facility] 02-23-2025 Telephone encounter Note Patient is scheduled for an ILR Removal on 04/[address] Alcala. The hospital will call the day before between 2-5pm with your arrival time. You should not eat or drink after midnight the day before the procedure. 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 Informed of instructions as stated above. Patient verbalized understanding. Gerald Lucas [facility] 02-23-2025 Telephone encounter Note Informed patient that Dr. Alcala will make arrangements for device explantation. Patient verbalizes understanding. Cesia Flores LPN [facility] 02-23-2025 Miscellaneous Notes Informed patient that Dr. Alcala will make arrangements for device explantation. Patient verbalizes understanding. Cesia Flores LPN Will make arrangements for device explantation, please inform the patient. Belén Alcala MD documented in this encounter [facility] 02-23-2025 Telephone encounter Note Will make arrangements for device explantation, please inform the patient. Belén Alcala MD [facility] 02-16-2025 Telephone encounter Note Looks like Dr. Alcala had implanted the loop recorder. I've included him in this message to see if he can arrange extraction. Thanks, Merari Camarillo MD [facility] 02-16-2025 Miscellaneous [address] like Dr. Alcala had implanted the loop recorder. I've included him in this message to see if he can arrange extraction. Thanks, Merari Camarillo MD This patient has an old loop recorder in that is no longer being used. She has misplaced the card for it and now is being told she can't fly with it. She is inquiring about having it removed. Thanks Phyllis Bernardo APRN.CNP documented in this encounter [facility] 02-16-2025 Telephone encounter Note This patient has an old loop recorder in that is no longer being used. She has misplaced the card for it and now is being told she can't fly with it. She is inquiring about having it removed. Thanks Phyllis Bernardo APRN.CNP [facility] Work Phone: 02-16-2025 Note HNO ID: [id number] Author: PHYLLIS BERNARDO APRN.CNP Service: ? Author Type: Nurse Practitioner Type: Progress Notes Filed: 02/16/2025 10:07 Note Text: Chief Complaint: Patient presents with: Cardiology Follow Up : Follow up History of Present Illness: The patient is a 54-year-old female with a history of hypertension, hyperlipidemia, PFO, diabetes mellitus, and CVA in 01/2019, presenting for follow-up. The patient denies chest pain, dyspnea, lightheadedness, dizziness, palpitations, or lower extremity edema. She reports experiencing a sensation of pressure around her head, similar to sinus pressure, but without congestion. She plans to discuss this with her PCP. BP this visit 128/78, patient repports home readings being 118-120 systolically. In 01/2019, during the workup for her CVA, a LB revealed normal LV systolic function and a PFO, with no evidence of thrombus or masses. A loop recorder was implanted in 08/2019, which did not detect any arrhythmias. A PFO closure was attempted on 12/11/2022, but no intracardiac shunting was found. A TTE on 11/14/2022 showed an LVEF of 58%, grade 1 diastolic dysfunction, mild aortic valve regurgitation, a mid-ascending aorta measuring 4.1 cm, and a trivial pericardial effusion. Discused repeating ecchocardiogram to recheck aorta and AR this visit vs next of which patient would rather wait until next visit. Pt denies chest pain, leg swelling, shortness of breath, heart palpitations, orthopnea, cough, fever, dizziness, near syncope or syncope, nausea, vomiting diaphoresis, or falls Reviewed with patient and adjusted as needed : PMH, PSH, Fam hx, Social hx, Allergies. PAST MEDICAL HISTORY Diagnosis Date Asthma ([facility]) Seasonal, uses Albuterol once a month Diabetes mellitus ([facility]) Family history of sleep apnea History of stroke Hypertension Mixed hyperlipidemia PFO (patent foramen ovale) ([facility]) Status post placement of implantable loop recorder Stroke (cerebrum) ([facility]) TMJ arthritis PAST SURGICAL HISTORY Procedure Laterality Date OOPHORECTOMY PARTIAL/TOTAL UNI/BI 2006 Right PAST SURGICAL HISTORY OF 2007 Excision abdominal mass PAST SURGICAL HISTORY OF 10/14/2008 right foot soft tissue mass excision PAST SURGICAL HISTORY OF 11/03/2010 Left planter fasciotomy PAST SURGICAL HISTORY OF 12/11/2022 PFO VAGINAL HYSTERECTOMY UTERUS 250 GM/< 2006 Hysterectomy, vaginal XTRNL PT ACTIV ECG TRANSMIS W/GABRIELE FAMILY HISTORY Problem Relation Age of Onset Diabetes Mother Diabetes Maternal Grandmother Diabetes Paternal Grandmother other (attention deficit) Son Diabetes Maternal Uncle other (no cardiac hx per pt) Other Social History Tobacco Use Smoking status: Never Smokeless tobacco: Never Vaping Use Vaping status: Never Used Substance Use Topics Alcohol use: Yes Comment: rare Drug use: No Current Outpatient Medications Medication Sig losartan (COZAAR) 100 mg tablet take 1 tablet by mouth once daily clopidogrel (PLAVIX) 75 mg tablet take 1 tablet by mouth once daily EPINEPHrine (EPIPEN) 0.3 mg/0.3 mL auto-injector Inject 0.3 mL intramuscularly as needed. fexofenadine (DAVID) 180 mg tablet Take 1 tablet daily. Can titrate up to 4 tablets in one day for hives with swelling. Do not exceed 4 tablets in 24 hours. fluticasone (FLONASE) 50 mcg/actuation nasal spray instill 1 TO 2 sprays into each nostril once daily if needed SITagliptin phosphate (JANUVIA) 50 mg tablet Take 1 tablet by mouth once daily. docosanol (ABREVA) 10 % crea Apply to affected area five times a day. atorvastatin (LIPITOR) 40 mg tablet Take 1 tablet by mouth once daily. metoprolol succinate ER (TOPROL XL) 25 mg 24 hr tablet Take 1 tablet by mouth once daily. hydroCHLOROthiazide 25 mg tablet Take 1 tablet by mouth once daily. amLODIPine (NORVASC) 10 mg tablet Take 1 tablet by mouth once daily. metFORMIN (GLUCOPHAGE) 500 mg tablet Take 2 tablets by mouth two times a day with meals. levothyroxine (LEVOXYL) 50 mcg tablet Take 1 tablet by mouth once daily. Take on empty stomach. For Thyroid blood sugar diagnostic (BLOOD GLUCOSE TEST) test strip Test blood sugar(s) 2 times daily. Dx: Type 2 DM - Uncontrolled E11.65 Insulin: No Lancets lancets Test blood sugar(s) 2 times daily. Dx: Type 2 DM - Uncontrolled E11.65 Insulin: No TRUE METRIX GLUCOSE METER Glucose Meter of Choice - Kit - Dx Type 2 DM - Uncontrolled E11.65 Miscellaneous Medical Supply 1 Each once daily. aspirin, enteric coated (ASPIRIN, ENTERIC COATED) 81 mg EC tablet take 1 tablet by mouth once daily MULTIVITAMIN ORAL Take by mouth once daily. (Patient not taking: Reported on 02/16/2025) No current facility-administered medications for this visit. ALLERGIES Allergen Reactions Fish Containing Pro* Hives, Swelling Iodine Unknown Shellfish Derived Other: See Comments Tetanus Vaccines An* Local Reaction Review of Systems: Review of Systems (more content not included)... [facility] 02-16-2025 History of Present illness Narrative Chief Complaint: Patient presents with: Cardiology Follow Up : Follow up History of Present Illness: The patient is a 54-year-old female with a history of hypertension, hyperlipidemia, PFO, diabetes mellitus, and CVA in 01/2019, presenting for follow-up. The patient denies chest pain, dyspnea, lightheadedness, dizziness, palpitations, or lower extremity edema. She reports experiencing a sensation of pressure around her head, similar to sinus pressure, but without congestion. She plans to discuss this with her PCP. BP this visit 128/78, patient repports home readings being 118-120 systolically. In 01/2019, during the workup for her CVA, a LB revealed normal LV systolic function and a PFO, with no evidence of thrombus or masses. A loop recorder was implanted in 08/2019, which did not detect any arrhythmias. A PFO closure was attempted on 12/11/2022, but no intracardiac shunting was found. A TTE on 11/14/2022 showed an LVEF of 58%, grade 1 diastolic dysfunction, mild aortic valve regurgitation, a mid-ascending aorta measuring 4.1 cm, and a trivial pericardial effusion. Discused repeating ecchocardiogram to recheck aorta and AR this visit vs next of which patient would rather wait until next visit. Pt denies chest pain, leg swelling, shortness of breath, heart palpitations, orthopnea, cough, fever, dizziness, near syncope or syncope, nausea, vomiting diaphoresis, or falls Reviewed with patient and adjusted as needed : PMH, PSH, Fam hx, Social hx, Allergies. PAST MEDICAL HISTORY Diagnosis Date Asthma ([facility]) Seasonal, uses Albuterol once a month Diabetes mellitus ([facility]) Family history of sleep apnea History of stroke Hypertension Mixed hyperlipidemia PFO (patent foramen ovale) ([facility]) Status post placement of implantable loop recorder Stroke (cerebrum) ([facility]) TMJ arthritis PAST SURGICAL HISTORY Procedure Laterality Date OOPHORECTOMY PARTIAL/TOTAL UNI/BI 2006 Right PAST SURGICAL HISTORY OF 2007 Excision abdominal mass PAST SURGICAL HISTORY OF 10/14/2008 right foot soft tissue mass excision PAST SURGICAL HISTORY OF 11/03/2010 Left planter fasciotomy PAST SURGICAL HISTORY OF 12/11/2022 PFO VAGINAL HYSTERECTOMY UTERUS 250 GM/< 2006 Hysterectomy, vaginal XTRNL PT ACTIV ECG TRANSMIS W/R&I </30 DAYS 08/15/2019 FAMILY HISTORY Problem Relation Age of Onset Diabetes Mother Diabetes Maternal Grandmother Diabetes Paternal Grandmother other (attention deficit) Son Diabetes Maternal Uncle other (no cardiac hx per pt) Other Social History Tobacco Use Smoking status: Never Smokeless tobacco: Never Vaping Use Vaping status: Never Used Substance Use Topics Alcohol use: Yes Comment: rare Drug use: No Current Outpatient Medications Medication Sig losartan (COZAAR) 100 mg tablet take 1 tablet by mouth once daily clopidogrel (PLAVIX) 75 mg tablet take 1 tablet by mouth once daily EPINEPHrine (EPIPEN) 0.3 mg/0.3 mL auto-injector Inject 0.3 mL intramuscularly as needed. fexofenadine (DAVID) 180 mg tablet Take 1 tablet daily. Can titrate up to 4 tablets in one day for hives with swelling. Do not exceed 4 tablets in 24 hours. fluticasone (FLONASE) 50 mcg/actuation nasal spray instill 1 TO 2 sprays into each nostril once daily if needed SITagliptin phosphate (JANUVIA) 50 mg tablet Take 1 tablet by mouth once daily. docosanol (ABREVA) 10 % crea Apply to affected area five times a day. atorvastatin (LIPITOR) 40 mg tablet Take 1 tablet by mouth once daily. metoprolol succinate ER (TOPROL XL) 25 mg 24 hr tablet Take 1 tablet by mouth once daily. hydroCHLOROthiazide 25 mg tablet Take 1 tablet by mouth once daily. amLODIPine (NORVASC) 10 mg tablet Take 1 tablet by mouth once daily. metFORMIN (GLUCOPHAGE) 500 mg tablet Take 2 tablets by mouth two times a day with meals. levothyroxine (LEVOXYL) 50 mcg tablet Take 1 tablet by mouth once daily. Take on empty stomach. For Thyroid blood sugar diagnostic (BLOOD GLUCOSE TEST) test strip Test blood sugar(s) 2 times daily. Dx: Type 2 DM - Uncontrolled E11.65 Insulin: No Lancets lancets Test blood sugar(s) 2 times daily. Dx: Type 2 DM - Uncontrolled E11.65 Insulin: No TRUE METRIX GLUCOSE METER Glucose Meter of Choice - Kit - Dx Type 2 DM - Uncontrolled E11.65 Miscellaneous Medical Supply 1 Each once daily. aspirin, enteric coated (ASPIRIN, ENTERIC COATED) 81 mg EC tablet take 1 tablet by mouth once daily MULTIVITAMIN ORAL Take by mouth once daily. (Patient not taking: Reported on 02/16/2025) No current facility-administered medications for this visit. ALLERGIES Allergen Reactions Fish Containing Pro* Hives, Swelling Iodine Unknown Shellfish Derived Other: See Comments Tetanus Vaccines An* Local Reaction Review of Systems: Review of Systems Constitutional: Negative for malaise/fatigue. Respiratory: Negative for shortness of breath and wheezing. Cardiovascular: Negative for chest pain, palpitations, orthopnea and leg swelling. Gastrointestinal: Negative for nausea and vomiting. Musculoskeletal: Negative for falls. Neurological: Negative for dizziness and weakness. Endo/Heme/Allergies: Does not bruise/bleed easily. Physical Examination: BP 128/78 (BP Site: Right Arm, BP Position: Sitting, BP Cuff Size: Large Adult) Pulse 68 Resp 18 Ht 5' 4 (1.626 m) Wt 198 lb (89.8 kg) SpO2 98% BMI 33.99 kg/m BMI 33.99 kg/(m^2) General: Alert & oriented, no acute distress Skin: Normal HEENT: Pupils equal, round. Oral cavity, oropharynx clear Neck: Supple, no mass Breast: Deferred Respiratory: Clear to auscultation, bilaterally Cardiovascular: Jugular venous pressure normal. Regular rate and rhythm, normal S1 and S2, no murmurs or added sounds Abdomen: Soft, non-tender, non-distended, no masses palpable, no hepatosplenomegaly, normal bowel sounds Genitourinary: Deferred MSK: No joint swelling, erythema, or tenderness Extremities: No clubbing, cyanosis, or edema Cardiac Testing and Procedures: Labs: - (01/02/2025) Lipid panel: - Total cholesterol: 182 mg/dL - Triglycerides: 131 mg/dL - HDL: 49 mg/dL - LDL: 107 mg/dL Imaging: - (11/14/2022) Echocardiogram: - LVEF: 58% - Grade 1 diastolic dysfunction - Normal wall motion - Mild aortic valve regurgitation - Aorta measuring 4.1 cm in the mid-ascending segment - Trivial pericardial effusion - (January 2019) LB: - Normal LV systolic function - No evidence of thrombus or masses - Evidence of PFO Tests: - (12/11/2022) PFO closure attempt: No intracardiac shunting found - (11/14/2022) EKG: Normal sinus rhythm, 67 BPM Assessment/Plan: 1. PFO (patent foramen ovale) ([facility]) (Q21.12) Patient has a history of PFO identified during CVA workup in January 2019. LB at that time showed normal LV systolic function with no evidence of thrombus or masses. A loop recorder was implanted in August 2019, which did not show any evidence of arrhythmias. PFO closure was attempted on 12/11/2022 at [facility], but no intracardiac shunting was found. Recent echocardiogram on 11/14/2022 showed LVEF 58%, grade 1 diastolic dysfunction, mild aortic valve regurgitation, and a dilated aorta at 4.1 cm. EKG on the same date showed normal sinus rhythm at 67 BPM. - Monitor aortic dilation and aortic valve regurgitation with follow-up echocardiogram in 2-3 years. - Discuss removal of loop recorder with Dr. Camarillo due to patient's reported issues with airport security and device functionality. - Follow-up in 6 months for reassessment and potential further testing. 2. Essential (primary) hypertension (I10) Blood pressure is well-controlled with current medications: amlodipine, hydrochlorothiazide, losartan, and metoprolol. Recent BP reading was 128/78 mmHg, and home readings are consistently between 118-120 mmHg. Grade 1 diastolic dysfunction on recent echocardiogram may be related to hypertension. Continue current antihypertensive regimen and monitor blood pressure at home. 3. Mixed hyperlipidemia (E78.2) Lipid panel on 01/02/2025 showed total cholesterol 182 mg/dL, triglycerides 131 mg/dL, HDL 49 mg/dL, and LDL 107 mg/dL. LDL is slightly above target but not significantly concerning. Patient is currently on atorvastatin. Continue atorvastatin therapy and recheck lipid panel at next follow-up in 6 months. Phyllis Bernardo APRN.[employer] Return in about 6 months (around 08/18/2025), or with Dr. Camarillo or DALIA. Medical Decision Making: Problems: Moderate: 2+ stable chronic illnesses Data: Unique test result(s) reviewed: 1 Risk: Moderate: Drug management Medical Decision Making Level: 4 - Moderate Please Note: This office note has been created using 3FLOZ, and consent was obtained by the patient documented in this encounter [facility] 02-16-2025 Instructions Phyllis Bernardo APRN.CNP - 02/16/2025 10:00 AM EDT Continue current regimen I will discuss loop recorder removal and update you Follow up in 6 months with DALIA or Dr. Camarillo Please call if you have any questions or concerns documented in this encounter [facility] 02-03-2025 Telephone encounter Note Received 02/03/2025 from Victoriano . Placed in provider's inbox for review. Route to [place] for faxing. [facility] 02-03-2025 Miscellaneous Notes Received 02/03/2025 from Victoriano . Placed in provider's inbox for review. Route to OR for faxing. documented in this encounter [facility] 01-29-2025 Telephone encounter Note The following approved medication requests have been transmitted electronically. Requested Prescriptions Signed Prescriptions Disp Refills clopidogrel (PLAVIX) 75 mg tablet 360 tablet 3 Sig: take 1 tablet by mouth once daily Authorizing Provider: ISABEL DAVENPORT MD [facility] 01-29-2025 Telephone encounter Note The following approved medication requests have been transmitted electronically. Requested Prescriptions Signed Prescriptions Disp Refills losartan (COZAAR) 100 mg tablet 360 tablet 3 Sig: take 1 tablet by mouth once daily Authorizing Provider: ISABEL DAVENPORT MD [facility] 01-29-2025 Miscellaneous Notes The following approved medication requests have been transmitted electronically. Requested Prescriptions Signed Prescriptions Disp Refills losartan (COZAAR) 100 mg tablet 360 tablet 3 Sig: take 1 tablet by mouth once daily Authorizing Provider: ISABEL DAVENPORT MD Prescription Refill Information The patient has been identified by name and date of : Yes Caregiver verified no other encounters exist for this prescription request: Yes Caregiver confirmed with patient/requestor that no other refills are due, in the near future, with this provider at this time: Yes The last office visit in the department: 01/05/2025 Does the patient have a future office visit with this provider/department: No Requested Prescriptions Pending Prescriptions Disp Refills losartan (COZAAR) 100 mg tablet [Pharmacy Med Name: LOSARTAN POTASSIUM 100 MG TAB] 360 tablet Sig: take 1 tablet by mouth once daily Sunitha Lei LPN January 29, 2025 10:03 AM documented in this encounter [facility] 01-29-2025 Miscellaneous Notes The following approved medication requests have been transmitted electronically. Requested Prescriptions Signed Prescriptions Disp Refills clopidogrel (PLAVIX) 75 mg tablet 360 tablet 3 Sig: take 1 tablet by mouth once daily Authorizing Provider: ISABEL DAVENPORT MD Prescription Refill Information The patient has been identified by name and date of : Yes Caregiver verified no other encounters exist for this prescription request: Yes Caregiver confirmed with patient/requestor that no other refills are due, in the near future, with this provider at this time: Yes The last office visit in the department: 01/05/2025 Does the patient have a future office visit with this provider/department: No Requested Prescriptions Pending Prescriptions Disp Refills clopidogrel (PLAVIX) 75 mg tablet [Pharmacy Med Name: CLOPIDOGREL 75 MG TABLET] 360 tablet Sig: take 1 tablet by mouth once daily Sunitha Lei LPN January 29, 2025 11:37 AM documented in this encounter [facility] 01-29-2025 Telephone encounter Note Prescription Refill Information The patient has been identified by name and date of : Yes Caregiver verified no other encounters exist for this prescription request: Yes Caregiver confirmed with patient/requestor that no other refills are due, in the near future, with this provider at this time: Yes The last office visit in the department: 01/05/2025 Does the patient have a future office visit with this provider/department: No Requested Prescriptions Pending Prescriptions Disp Refills clopidogrel (PLAVIX) 75 mg tablet [Pharmacy Med Name: CLOPIDOGREL 75 MG TABLET] 360 tablet Sig: take 1 tablet by mouth once daily Sunitha Lei LPN January 29, 2025 11:37 AM [facility] 01-29-2025 Telephone encounter Note Prescription Refill Information The patient has been identified by name and date of : Yes Caregiver verified no other encounters exist for this prescription request: Yes Caregiver confirmed with patient/requestor that no other refills are due, in the near future, with this provider at this time: Yes The last office visit in the department: 01/05/2025 Does the patient have a future office visit with this provider/department: No Requested Prescriptions Pending Prescriptions Disp Refills losartan (COZAAR) 100 mg tablet [Pharmacy Med Name: LOSARTAN POTASSIUM 100 MG TAB] 360 tablet Sig: take 1 tablet by mouth once daily Sunitha Lei LPN January 29, 2025 10:03 AM [facility] 01-15-2025 Note HNO ID: [id number] Author: CARMELITA LARSON RN Service: ? Author Type: Registered Nurse Type: Progress Notes Filed: 01/22/2025 21:54 Note Text: AMBULATORY PATIENT EDUCATION TOPIC: SURVIVAL SKILLS: Medication Administration Epipen READINESS TO LEARN COGNITIVE ABILITY: Alert and oriented MOTIVATION TO LEARN: Eager Interested FAMILY SUPPORT: Unable to assess - Family not present INSTRUCTION PROVIDED TO: Patient PATIENT LEARNS BEST BY: Individual Instruction Written Instruction - Hand-outs Verbal Instruction Demonstration FACTORS AFFECTING LEARNING: None PHYSICAL LIMITATIONS AFFECTING LEARNING: None LEARNING RESPONSE DIAGNOSIS: Anaphylaxis METHOD OF INSTRUCTION: Individual instruction Written instruction/Handouts Verbal instruction Demonstration/Hands on Learning PATIENT / FAMILY RESPONSE: Verbalizes understanding of: MEDICATION PRESCRIBED-Accurate knowledge of prescribed medication prior to discharge MEDICATION ROUTE-Correct route for administration of the prescribed medication MEDICATION SIDE EFFECTS-Side effects associated with the medication that warrant a call to the physician FOLLOW-UP PLAN: Recommend - Recommend continued instruction and follow up as directed SUPPLEMENTAL MATERIAL: None REFERRAL (RECOMMENDATION): None Electronically Signed By Carmelita Larson RN In Department: ALLERGY [facility] 01-15-2025 History of Present illness Narrative AMBULATORY PATIENT EDUCATION TOPIC: SURVIVAL SKILLS: Medication Administration Epipen READINESS TO LEARN COGNITIVE ABILITY: Alert and oriented MOTIVATION TO LEARN: Eager Interested FAMILY SUPPORT: Unable to assess - Family not present INSTRUCTION PROVIDED TO: Patient PATIENT LEARNS BEST BY: Individual Instruction Written Instruction - Hand-outs Verbal Instruction Demonstration FACTORS AFFECTING LEARNING: None PHYSICAL LIMITATIONS AFFECTING LEARNING: None LEARNING RESPONSE DIAGNOSIS: Anaphylaxis METHOD OF INSTRUCTION: Individual instruction Written instruction/Handouts Verbal instruction Demonstration/Hands on Learning PATIENT / FAMILY RESPONSE: Verbalizes understanding of: MEDICATION PRESCRIBED-Accurate knowledge of prescribed medication prior to discharge MEDICATION ROUTE-Correct route for administration of the prescribed medication MEDICATION SIDE EFFECTS-Side effects associated with the medication that warrant a call to the physician FOLLOW-UP PLAN: Recommend - Recommend continued instruction and follow up as directed SUPPLEMENTAL MATERIAL: None REFERRAL (RECOMMENDATION): None Electronically Signed By Carmelita Larson RN In Department: ALLERGY Images from the original note were not included. Allergy and Immunology All aspects of this note have been reviewed and updated. Consultation requested by Self for an opinion regarding hives and swelling. My final recommendations will be communicated back to the requesting physician by way of shared Medical record or letter to requesting physician via US mail. Martha Venegas is a 54 year old female with PMHx CVA, HTN, asthma, acquired hypothyroidism who presents today for evaluation of hives and swelling. The patient reports that she has been having daily hives and swelling for at least the last 4 weeks. She states that the hives are located all over her body and migrate and last between 24 and 48 hours. There are red, itchy and swollen. They do not burn, bruise, or scar. They do not worsen with ibuprofen, Motrin, Aleve, or naproxen. She does not notice worsening symptoms with alcohol. She was diagnosed with COVID in November 2024 and unfortunately her mother in December 2024. She denies any new skin care products but reports that she has tried Vaseline, Brendon pose a balm, Neosporin and Benadryl cream without any improvement in her symptoms. She has pictures that are consistent with urticaria and associated angioedema. She denies any physical triggers including pressure, vibration, sunlight, cold or hot temperatures. She has not been out of the country since this started. 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 She does not carry an epinephrine autoinjector. She reports immediate tongue swelling after ingestion of shellfish and difficulty breathing. MYC COLLATERAL ALLERGY HISTORY Question 01/13/2025 3:25 PM EDT - Filed by Patient Do you have or have you ever been diagnosed with allergic rhinitis? Not Sure Have you ever been skin tested for allergies? No Do you have asthma? No Do you have or have you ever been diagnosed with eczema or atopic dermatitis? No Do you get frequent sinus infections? No Do you have nasal polyps? No Do you have or have you ever been diagnosed with urticaria / hives? No Do you have or have you ever been diagnosed with angioedema? No Do you have or have you ever been diagnosed with food allergy? Yes Do you have or have you ever been diagnosed with stinging insect allergy (bee, wasp, yellow jacket, hornet)? No Are you allergic to Penicillin antibiotics? No MYC ALLERGY ENVIROMENTAL EXPOSURES Question 01/13/2025 3:28 PM EDT - Filed by Patient Aeroallergens Exposure What pet(s) you have at home? No pets Is there evidence of a mouse infestation in your home? No Is there evidence of a cockroach infestation in your home? No Is there evidence of mold or mildew in your home? No Is your home air conditioned during the summer? Yes Do you use zip around dust mite covers on all mattresses and pillows? Yes Is there exposure in the home to cigarette or cigar smoke? No Is there any exposure to vaping? No PAST MEDICAL HISTORY Diagnosis Date Asthma Seasonal, uses Albuterol once a month Diabetes mellitus (HCC) Family history of sleep apnea History of stroke Hypertension Mixed hyperlipidemia PFO (patent foramen ovale) Status post placement of implantable loop recorder Stroke (cerebrum) (HCC) TMJ arthritis PAST SURGICAL HISTORY Procedure Laterality Date OOPHORECTOMY PARTIAL/TOTAL UNI/BI 2006 Right PAST SURGICAL HISTORY OF 2007 Excision abdominal mass PAST SURGICAL HISTORY OF 10/14/2008 right foot soft tissue mass excision PAST SURGICAL HISTORY OF 11/03/2010 Left planter fasciotomy PAST SURGICAL HISTORY OF 12/11/2022 PFO VAGINAL HYSTERECTOMY UTERUS 250 GM/< 2006 Hysterectomy, vaginal XTRNL PT ACTIV ECG TRANSMIS W/R&I </30 DAYS 08/15/2019 FAMILY HISTORY Problem Relation Age of Onset Diabetes Mother Diabetes Maternal Grandmother Diabetes Paternal Grandmother other (attention deficit) Son Diabetes Maternal Uncle other (no cardiac hx per pt) Other Current Outpatient Medications Medication Sig EPINEPHrine (EPIPEN) 0.3 mg/0.3 mL auto-injector Inject 0.3 mL intramuscularly as needed. fexofenadine (DAVID) 180 mg tablet Take 1 tablet daily. Can titrate up to 4 tablets in one day for hives with swelling. Do not exceed 4 tablets in 24 hours. fluticasone (FLONASE) 50 mcg/actuation nasal spray instill 1 TO 2 sprays into each nostril once daily if needed SITagliptin phosphate (JANUVIA) 50 mg tablet Take 1 tablet by mouth once daily. docosanol (ABREVA) 10 % crea Apply to affected area five times a day. atorvastatin (LIPITOR) 40 mg tablet Take 1 tablet by mouth once daily. metoprolol succinate ER (TOPROL XL) 25 mg 24 hr tablet Take 1 tablet by mouth once daily. hydroCHLOROthiazide 25 mg tablet Take 1 tablet by mouth once daily. amLODIPine (NORVASC) 10 mg tablet Take 1 tablet by mouth once daily. clopidogrel (PLAVIX) 75 mg tablet Take 1 tablet by mouth once daily. metFORMIN (GLUCOPHAGE) 500 mg tablet Take 2 tablets by mouth two times a day with meals. losartan (COZAAR) 100 mg tablet Take 1 tablet by mouth once daily. levothyroxine (LEVOXYL) 50 mcg tablet Take 1 tablet by mouth once daily. Take on empty stomach. For Thyroid blood sugar diagnostic (BLOOD GLUCOSE TEST) test strip Test blood sugar(s) 2 times daily. Dx: Type 2 DM - Uncontrolled E11.65 Insulin: No Lancets lancets Test blood sugar(s) 2 times daily. Dx: Type 2 DM - Uncontrolled E11.65 Insulin: No TRUE METRIX GLUCOSE METER Glucose Meter of Choice - Kit - Dx Type 2 DM - Uncontrolled E11.65 Miscellaneous Medical Supply 1 Each once daily. MULTIVITAMIN ORAL Take by mouth once daily. aspirin, enteric coated (ASPIRIN, ENTERIC COATED) 81 mg EC tablet take 1 tablet by mouth once daily No current facility-administered medications for this visit. ALLERGIES Allergen Reactions Fish Containing Pro* Hives, Swelling Iodine Unknown Shellfish Derived Other: See Comments Tetanus Vaccines An* Local Reaction Social History Tobacco Use Smoking status: Never Smokeless tobacco: Never REVIEW OF SYSTEMS MYC ROS ALLERGY Question 01/13/2025 3:24 PM EDT - Filed by Patient Eyes - Do you have Eye discharge Itchy Eyes Eye pain Eye redness Photophobia (light sensitivity) Vision Disturbance Ears, Nose, Mouth, Throat - Do you have Ear pain Ringing in Ears Ear Discharge Yes Hearing Loss Yes Nasal Congestion Runny Nose Sneezing Itchy Nose Nosebleeds Sore throat Itchy throat Throat clearing Yes Lungs - Do you have Shortness of breath A cough Wheezing Chest tightness GI - Do you have Abdominal pain Nausea Vomiting Heartburn Trouble swallowing Diarrhea Constipation Neurology - Do you have Headaches Dermatology - Do you have A rash Yes Itching Yes Dry skin Flushing Pulse 75, weight 89 kg (196 lb 3.4 oz), SpO2 100%. Body mass index is 33.68 kg/m . Physical Exam Vitals reviewed. Constitutional: Appearance: She is not ill-appearing. HENT: Right Ear: Tympanic membrane, ear canal and external ear normal. Left Ear: Tympanic membrane, ear canal and external ear normal. Nose: Nose normal. Mouth/Throat: Mouth: Mucous membranes are moist. Pharynx: Oropharynx is clear. Eyes: Conjunctiva/sclera: Conjunctivae normal. Cardiovascular: Rate and Rhythm: Normal rate and regular rhythm. Pulmonary: Effort: Pulmonary effort is normal. Breath sounds: Normal breath sounds. Skin: General: Skin is warm and dry. Findings: No rash. Neurological: Mental Status: She is alert. Psychiatric: Behavior: Behavior normal. Diagnostic Testing: Labs Latest Ref Rng 04/14/2024 11/11/2024 01/02/2025 WBC 3.70 - 11.00 k/uL 12.61 (H) RBC 3.90 - 5.20 m/uL 4.75 Hemoglobin 11.5 - 15.5 g/dL 12.3 Hematocrit 36.0 - 46.0 % 39.2 MCV 80.0 - 100.0 fL 82.5 MCH 26.0 - 34.0 pg 25.9 (L) MCHC 30.5 - 36.0 g/dL 31.4 RDW-CV 11.5 - 15.0 % 14.6 Platelet Count 150 - 400 k/uL 289 MPV 9.0 - 12.7 fL 11.0 Absolute nRBC <0.01 k/uL <0.01 SARS-CoV-2 (Agent of COVID-19) RNA See comment Detected ! Influenza A RNA Not Detected Not detected Influenza B RNA Not Detected Not detected Respiratory syncytial virus (RSV) RNA Not Detected Not detected HIV 12 Combo (Ag/Ab) Nonreactive Nonreactive HIV 1/2 Ab -- HIV Interpretation -- Hemoglobin A1C 4.3 - 5.6 % 12.3 (H) Estimated Average Glucose mg/dL 306 Assessment/Plan: 54 year old female with PMHx CVA, HTN, asthma, acquired hypothyroidism who presents today for evaluation of hives and swelling. 1. Chronic idiopathic urticaria - ICD9: 708.1, ICD10: L50.1 (primary diagnosis) 2. Angioedema, initial encounter - ICD9: 995.1, ICD10: T78.3XXA - +COVID in November 2024, family member passed in December Plan: > The nature of chronic urticaria/angioedema was discussed at length. The patient was informed that a definite etiology is not identified in the overwhelming majority of cases and that management primarily entails the regular use of antihistamine medication. Goals are to control symptoms as much as possible without developing bothersome side effects. > No abnormalities (lesions lasting longer than 24-48 hrs, burning/pain, or residual skin changes/hyperpigmentation) to indicate need for skin biopsy. > Start fexofenadine 180 mg 4 tablets once daily. > Advise avoidance of NSAIDs, opiates and WHIT inhibitors which can lower the threshold for urticaria or angioedema 3. Adverse food reaction, initial encounter - ICD9: 995.7, ICD10: T78.1XXA - Listed shellfish and fish allergy Plan: > Continue to avoid all seafood. > Epinephrine autoinjector Rx given. > Food anaphylaxis plan created and reviewed with patient. Discussed medication dosage, usage, side effects, and goals of treatment in detail. Follow-up: Return in about 3 months (around 04/17/2025) for Hives. Patient advised to call or return sooner should current symptoms worsen or fail to improve or if new symptoms or problems arise. Elizabeth Pereira MD Allergy and Immunology [facility] Medical Decision Making: Problems: Moderate: New problem with uncertain prognosis Data: Unique test result(s) reviewed: 3+ Risk: Moderate: Drug management Medical Decision Making Level: 4 - Moderate documented in this encounter [facility] 01-15-2025 Note HNO ID: [id number] Author: ELIZBAETH PEREIRA MD Service: ? Author Type: Physician Type: Progress Notes Filed: 01/22/2025 21:54 Note Text: Allergy and Immunology All aspects of this note have been reviewed and updated. Consultation requested by Self for an opinion regarding hives and swelling. My final recommendations will be communicated back to the requesting physician by way of shared Medical record or letter to requesting physician via US mail. Martha Venegas is a 54 year old female with PMHx CVA, HTN, asthma, acquired hypothyroidism who presents today for evaluation of hives and swelling. The patient reports that she has been having daily hives and swelling for at least the last 4 weeks. She states that the hives are located all over her body and migrate and last between 24 and 48 hours. There are red, itchy and swollen. They do not burn, bruise, or scar. They do not worsen with ibuprofen, Motrin, Aleve, or naproxen. She does not notice worsening symptoms with alcohol. She was diagnosed with COVID in November 2024 and unfortunately her mother in December 2024. She denies any new skin care products but reports that she has tried Vaseline, Brendon pose a balm, Neosporin and Benadryl cream without any improvement in her symptoms. She has pictures that are consistent with urticaria and associated angioedema. She denies any physical triggers including pressure, vibration, sunlight, cold or hot temperatures. She has not been out of the country since this started. 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 She does not carry an epinephrine autoinjector. She reports immediate tongue swelling after ingestion of shellfish and difficulty breathing. [facility] COLLATERAL ALLERGY HISTORY Question 01/13/2025 3:25 PM EDT - Filed by Patient Do you have or have you ever been diagnosed with allergic rhinitis? Not Sure Have you ever been skin tested for allergies? No Do you have asthma? No Do you have or have you ever been diagnosed with eczema or atopic dermatitis? No Do you get frequent sinus infections? No Do you have nasal polyps? No Do you have or have you ever been diagnosed with urticaria / hives? No Do you have or have you ever been diagnosed with angioedema? No Do you have or have you ever been diagnosed with food allergy? Yes Do you have or have you ever been diagnosed with stinging insect allergy (bee, wasp, yellow jacket, hornet)? No Are you allergic to Penicillin antibiotics? No [facility] ALLERGY ENVIROMENTAL EXPOSURES Question 01/13/2025 3:28 PM EDT - Filed by Patient Aeroallergens Exposure What pet(s) you have at home? No pets Is there evidence of a mouse infestation in your home? No Is there evidence of a cockroach infestation in your home? No Is there evidence of mold or mildew in your home? No Is your home air conditioned during the summer? Yes Do you use zip around dust mite covers on all mattresses and pillows? Yes Is there exposure in the home to cigarette or cigar smoke? No Is there any exposure to vaping? No PAST MEDICAL HISTORY Diagnosis Date Asthma Seasonal, uses Albuterol once a month Diabetes mellitus (HCC) Family history of sleep apnea History of stroke Hypertension Mixed hyperlipidemia PFO (patent foramen ovale) Status post placement of implantable loop recorder Stroke (cerebrum) (HCC) TMJ arthritis PAST SURGICAL HISTORY Procedure Laterality Date OOPHORECTOMY PARTIAL/TOTAL UNI/BI 2006 Right PAST SURGICAL HISTORY OF 2007 Excision abdominal mass PAST SURGICAL HISTORY OF 10/14/2008 right foot soft tissue mass excision PAST SURGICAL HISTORY OF 11/03/2010 Left planter fasciotomy PAST SURGICAL HISTORY OF 12/11/2022 PFO VAGINAL HYSTERECTOMY UTERUS 250 GM/< 2007 Hysterectomy, vaginal XTRNL PT ACTIV ECG TRANSMIS W/GABRIELE FAMILY HISTORY Problem Relation Age of Onset Diabetes Mother Diabetes Maternal Grandmother Diabetes Paternal Grandmother other (attention deficit) Son Diabetes Maternal Uncle other (no cardiac hx per pt) Other Current Outpatient Medications Medication Sig EPINEPHrine (EPIPEN) 0.3 mg/0.3 mL auto-injector Inject 0.3 mL intramuscularly as needed. fexofenadine (DAVID) 180 mg tablet Take 1 tablet daily. Can titrate up to 4 tablets in one day for hives with swelling. Do not exceed 4 tablets in 24 hours. fluticasone (FLONASE) 50 mcg/actuation nasal spray instill 1 TO 2 sprays into each nostril once daily if needed SITagliptin phosphate (JANUVIA) 50 mg tablet Take 1 tablet by mouth once daily. docosanol (ABREVA) 10 % crea Apply to affected area five times a day. atorvastatin (LIPITOR) 40 mg tablet Take 1 tablet by mouth once daily. metoprolol succinate ER (TOPROL XL) 25 mg 24 hr tablet Take 1 tablet by mouth once daily. hydroCHLOROthiazide 25 mg tablet Take 1 tablet by mouth once daily. amLODIPine (NORVASC) 10 mg tablet Take 1 tablet by mouth once (more content not included)... [facility] 01-05-2025 Note HNO ID: [id number] Author: ISABEL DAVENPORT MD Service: ? Author Type: Physician Type: Progress Notes Filed: 01/05/2025 11:09 Note Text: Off work Dec 16. Family Isabel Davenport MD [facility] 01-05-2025 History of Present illness Narrative Off work Dec 16. Family Isabel Davenport MD CHIEF COMPLAINT Patient presents with: Follow Up HISTORY OF PRESENT ILLNESS Martha Venegas is a 54 year old female who presents here today for follow up. I last saw this patient on 01/08/2024. - Mother recently to breast cancer Diabetes - A1c is 12.3% - Currently managed on metformin 500 mg (2 tablets) BID - Previously tried glimepiride, was having low BS Mouth - Has intermittent flare ups of blistering/rash of the lips - Admits to noticing seeping - Has tried OTC medication without benefit - Does report a similar episode when she had Covid Health Maintenance Due for BP Controlled (<130/80) Due for Shingrix Vaccine (2 of 2) Due for Influenza Vaccine (1) Due for Covid-19 Vaccine ( season) Due for Spirometry Due for Anxiety Screening Due for Hep B Vaccine (1 of 3-3 dose series) Due for Colorectal Cancer Screening Due for Diabetic Foot Exam Due for Mammogram Screening Labs reviewed. Past medical history, appointments, medications, allergies reviewed. REVIEW OF SYSTEMS General: Feels well, no weight changes, fevers or chills. HEENT: +lesion of the lip, intermittent, seeping No sinus congestion, earache, sore throat. Cardiac: No chest pain, palpitations Resp: No cough, wheeze, shortness of breath GI: No reflux symptoms, food intolerance, bowel changes. : No urinary frequency, dysuria. MS: No pain or joint complaints. PAST MEDICAL HISTORY PAST MEDICAL HISTORY Diagnosis Date Asthma Seasonal, uses Albuterol once a month Diabetes mellitus (HCC) Family history of sleep apnea History of stroke Hypertension Mixed hyperlipidemia PFO (patent foramen ovale) Status post placement of implantable loop recorder Stroke (cerebrum) (HCC) TMJ arthritis PHYSICAL EXAMINATION BP 132/80 Pulse 70 Ht 162.6 cm (5' 4) Wt 90 kg (198 lb 6.6 oz) SpO2 97% BMI 34.06 kg/m Repeat BP: 128/79 General: Alert, well developed, well nourished, no distress, pleasant and cooperative. Obese. Heart: Regular rate and rhythm. Normal S1 and S2. No murmurs, rubs, or gallops. Lungs: Clear to auscultation bilaterally. No respiratory distress. No wheezes, rales, or rhonchi. Abdomen: Soft, non-tender, no distention. Extremities: Feet/ankles without edema, posterior tibial pulses full and symmetrical. Feet: Shoes and socks removed. Are you having foot pain- No. No deformities, ulcers, calluses, and normal distal pulses Data Reviewed Latest Ref Rng 01/02/2025 WBC 3.70 - 11.00 k/uL 12.61 (H) RBC 3.90 - 5.20 m/uL 4.75 Hemoglobin 11.5 - 15.5 g/dL 12.3 Hematocrit 36.0 - 46.0 % 39.2 MCV 80.0 - 100.0 fL 82.5 MCH 26.0 - 34.0 pg 25.9 (L) MCHC 30.5 - 36.0 g/dL 31.4 RDW-CV 11.5 - 15.0 % 14.6 Platelet Count 150 - 400 k/uL 289 MPV 9.0 - 12.7 fL 11.0 Absolute nRBC <0.01 k/uL <0.01 Cholesterol, Total <200 mg/dL 182 Triglyceride <150 mg/dL 131 HDL Cholesterol >39 mg/dL 49 Non HDL Cholesterol <130 mg/dL 133 (H) Fasting Time hrs 12 VLDL Cholesterol <30 mg/dL 26 TC:HDL Ratio <5.10 3.71 LDL Cholesterol <100 mg/dL 107 (H) LDL:HDL Ratio <2.54 2.18 Hemoglobin A1C 4.3 - 5.6 % 12.3 (H) Estimated Average Glucose mg/dL 306 Legend: (H) High (L) Low Assessment/Plan (E11.9) Type 2 diabetes mellitus without complication, without long-term current use of insulin (HCC) (primary encounter diagnosis) Comment: A1c continues to trend up, 12.3% per recent labs Plan: Continue metformin Start januvia 50 mg daily (E78.2) Mixed hyperlipidemia Comment: Well managed on statin therapy Plan: Continue current regimen (I10) Essential hypertension Comment: Good control Plan: Continue current regimen (I63.439) 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, unspecified blood vessel laterality (HCC) Comment: On plavix Plan: Continue current regimen (E03.9) Acquired hypothyroidism Comment: Well managed on levoxyl Plan: Continue current regimen (Z12.31) Screening mammogram for breast cancer Comment: Per health maintenance. Family history of breast cancer in mother. Plan: THAD SCREENING (F43.20, Z63.4) Bereavement reaction Comment: Mother recently to breast cancer Plan: Pt brought in [facility] paperwork, was out of work from December 16 to the . Paperwork will be completed and returned (K13.70) Oral lesion Comment: Intermittent, seeping. Description does not sound like HSV, Consider food reaction Plan: Will continue to monitor will try topical abreva for next outbreak. Requested Prescriptions Signed Prescriptions Disp Refills SITagliptin phosphate (JANUVIA) 50 mg tablet 30 tablet 11 Sig: Take 1 tablet by mouth once daily. docosanol (ABREVA) 10 % crea 2 g 1 Sig: Apply to affected area five times a day. RTO: 6 months or sooner as needed Scribe Attestation: By signing my name below, I, Francis Palma, attest that this documentation has been prepared under the direction and in the presence of Jaspreet Davenport M.D. Electronically Signed: Antwon Ohara. January 05, 2025 9:34 AM Provider Attestation: IIsabel MD, personally performed the services described in this documentation. All medical record entries made by the scribe were at my direction and in my telephonic presence. I have reviewed the chart and discharge instructions (if applicable), and agree that the record reflects my personal performance and is accurate and complete. Electronically Signed: Isabel Davenport MD January 05, 2025 11:04 AM documented in this encounter [facility] 01-05-2025 Note HNO ID: [id number] Author: ISABEL DAVENPORT MD Service: ? Author Type: Physician Type: Progress Notes Filed: 01/05/2025 11:09 Note Text: CHIEF COMPLAINT Patient presents with: Follow Up HISTORY OF PRESENT ILLNESS Martha Venegas is a 54 year old female who presents here today for follow up. I last saw this patient on 01/08/2024. - Mother recently to breast cancer Diabetes - A1c is 12.3% - Currently managed on metformin 500 mg (2 tablets) BID - Previously tried glimepiride, was having low BS Mouth - Has intermittent flare ups of blistering/rash of the lips - Admits to noticing seeping - Has tried OTC medication without benefit - Does report a similar episode when she had Covid Health Maintenance Due for BP Controlled (<130/80) Due for Shingrix Vaccine (2 of 2) Due for Influenza Vaccine (1) Due for Covid-19 Vaccine ( season) Due for Spirometry Due for Anxiety Screening Due for Hep B Vaccine (1 of 3-3 dose series) Due for Colorectal Cancer Screening Due for Diabetic Foot Exam Due for Mammogram Screening Labs reviewed. Past medical history, appointments, medications, allergies reviewed. REVIEW OF SYSTEMS General: Feels well, no weight changes, fevers or chills. HEENT: +lesion of the lip, intermittent, seeping No sinus congestion, earache, sore throat. Cardiac: No chest pain, palpitations Resp: No cough, wheeze, shortness of breath GI: No reflux symptoms, food intolerance, bowel changes. : No urinary frequency, dysuria. MS: No pain or joint complaints. PAST MEDICAL HISTORY PAST MEDICAL HISTORY Diagnosis Date Asthma Seasonal, uses Albuterol once a month Diabetes mellitus (HCC) Family history of sleep apnea History of stroke Hypertension Mixed hyperlipidemia PFO (patent foramen ovale) Status post placement of implantable loop recorder Stroke (cerebrum) ([facility]) TMJ arthritis PHYSICAL EXAMINATION BP 132/80 Pulse 70 Ht 162.6 cm (5' 4) Wt 90 kg (198 lb 6.6 oz) SpO2 97% BMI 34.06 kg/m? Repeat BP: 128/79 General: Alert, well developed, well nourished, no distress, pleasant and cooperative. Obese. Heart: Regular rate and rhythm. Normal S1 and S2. No murmurs, rubs, or gallops. Lungs: Clear to auscultation bilaterally. No respiratory distress. No wheezes, rales, or rhonchi. Abdomen: Soft, non-tender, no distention. Extremities: Feet/ankles without edema, posterior tibial pulses full and symmetrical. Feet: Shoes and socks removed. Are you having foot pain- No. No deformities, ulcers, calluses, and normal distal pulses Data Reviewed Latest Ref [facility] 01/02/2025 WBC 3.70 - 11.00 k/uL 12.61 (H) RBC 3.90 - 5.20 m/uL 4.75 Hemoglobin 11.5 - 15.5 g/dL 12.3 Hematocrit 36.0 - 46.0 % 39.2 MCV 80.0 - 100.0 fL 82.5 MCH 26.0 - 34.0 pg 25.9 (L) MCHC 30.5 - 36.0 g/dL 31.4 RDW-CV 11.5 - 15.0 % 14.6 Platelet Count 150 - 400 k/uL 289 MPV 9.0 - 12.7 fL 11.0 Absolute nRBC <0.01 k/uL <0.01 Cholesterol, Total <200 mg/dL 182 Triglyceride <150 mg/dL 131 HDL Cholesterol >39 mg/dL 49 Non HDL Cholesterol <130 mg/dL 133 (H) Fasting Time hrs 12 VLDL Cholesterol <30 mg/dL 26 TC:HDL Ratio <5.10 3.71 LDL Cholesterol <100 mg/dL 107 (H) LDL:HDL Ratio <2.54 2.18 Hemoglobin A1C 4.3 - 5.6 % 12.3 (H) Estimated Average Glucose mg/dL 306 Legend: (H) High (L) Low Assessment/Plan (E11.9) Type 2 diabetes mellitus without complication, without long-term current use of insulin (HCC) (primary encounter diagnosis) Comment: A1c continues to trend up, 12.3% per recent labs Plan: Continue metformin Start januvia 50 mg daily (E78.2) Mixed hyperlipidemia Comment: Well managed on statin therapy Plan: Continue current regimen (I10) Essential hypertension Comment: Good control Plan: Continue current regimen (I63.439) 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, unspecified blood vessel laterality (HCC) Comment: On plavix Plan: Continue current regimen (E03.9) Acquired hypothyroidism Comment: Well managed on levoxyl Plan: Continue current regimen (Z12.31) Screening mammogram for breast cancer Comment: Per health maintenance. Family history of breast cancer in mother. Plan: THAD SCREENING (F43.20, Z63.4) Bereavement reaction Comment: Mother recently to breast cancer Plan: Pt brought in [facility] paperwork, was out of work from December 16 to the . Paperwork will be completed and returned (K13.70) Oral lesion Comment: Intermittent, seeping. Description does not sound like HSV, Consider food reaction Plan: Will continue to monitor will try topical abreva for next outbreak. Requested Prescriptions Signed Prescriptions Disp Refills SITagliptin phosphate (JANUVIA) 50 mg tablet 30 tablet 11 Sig: Take 1 tablet by mouth once daily. docosanol (ABREVA) 10 % crea 2 g 1 Sig: Apply to affected area five times a day. RTO: 6 months or sooner as needed (more content not included)... [facility] 12-25-2024 Telephone encounter Note Received [facility] paperwork from [place]. Placed in provider's inbox for review. Route to OR fax [facility] 12-25-2024 Miscellaneous Notes Received [facility] paperwork from [employer]. Placed in provider's inbox for review. Route to OR fax documented in this encounter [facility] 12-23-2024 Note Patient Outreach (IN TMMN) MARTHA VENEGAS ([id number]) 1970 F Date Time Provider Department 12/23/24 ISABEL DAVENPORT During your visit today, we recorded the following information about you: Allergies As of Date: 12/23/2024 Noted Allergy Reaction FISH CONTAINING PRODUCTS 04/29/2019 4 - Hives 7 - Swelling TETANUS VACCINES AND TOXOID 04/30/2009 Comments: Local Reaction Date Reviewed: 06/11/2024 Reviewed by: Mckenzie Flores MA - Fully Assessed Visit Diagnosis:Diabetes mellitus (HCC) [E11.9] Order(s):COMPLETE BLOOD COUNT [SQCBC] Order #: [id number] FUTURE Prescriptions as of 12/26/2024 - atorvastatin (LIPITOR) 40 mg tablet Take 1 tablet by mouth once daily. - metoprolol succinate ER (TOPROL XL) 25 mg 24 hr tablet Take 1 tablet by mouth once daily. - hydroCHLOROthiazide 25 mg tablet Take 1 tablet by mouth once daily. - amLODIPine (NORVASC) 10 mg tablet Take 1 tablet by mouth once daily. - clopidogrel (PLAVIX) 75 mg tablet Take 1 tablet by mouth once daily. - metFORMIN (GLUCOPHAGE) 500 mg tablet Take 2 tablets by mouth two times a day with meals. - losartan (COZAAR) 100 mg tablet Take 1 tablet by mouth once daily. - levothyroxine (LEVOXYL) 50 mcg tablet Take 1 tablet by mouth once daily. Take on empty stomach. For Thyroid - blood sugar diagnostic (BLOOD GLUCOSE TEST) test strip Test blood sugar(s) 2 times daily. Dx: Type 2 DM - Uncontrolled Insulin: No - Lancets lancets Test blood sugar(s) 2 times daily. Dx: Type 2 DM - Uncontrolled Insulin: No - TRUE METRIX GLUCOSE METER Glucose Meter of Choice - Kit - Dx Type 2 DM - Uncontrolled - Miscellaneous Medical Supply 1 Each once daily. - MULTIVITAMIN ORAL Take by mouth once daily. - aspirin, enteric coated (ASPIRIN, ENTERIC COATED) 81 mg EC tablet take 1 tablet by mouth once daily Problem List As Of Date 12/23/2024 Noted Resolved CALCANEAL SPUR [M77.30] 09/22/2008 Primary hypertension [I10] 10/06/2008 Class 2 obesity with body mass index (BMI) of 3*10/06/2008 GANGLION OF JOINT [M67.40] 10/21/2008 IMPAIRED FASTING GLUCOSE [R73.01] 04/28/2009 Asthma [J45.909] 09/27/2009 Abnormality of Gait [R26.9] 04/27/2010 Attention deficit disorder of adult [F98.8] 10/23/2011 Pain in joint, shoulder region [M25.519] 09/05/2012 Adnexal mass [N94.89] 04/29/2013 Pain in left foot [M79.672] 08/17/2015 Pain in right foot [M79.671] 08/17/2015 Bilateral low back pain without sciatica [M54.5*08/17/2015 Diabetes mellitus (HCC) [E11.9] 10/10/2016 Plantar fascial fibromatosis of both feet [M72.*04/16/2017 TIA (transient ischemic attack) [G45.9] 01/16/2019 03/10/2019 Visual loss, both eyes [H54.3] 01/27/2019 Occipital stroke (HCC) [I63.9] 01/16/2019 PFO (patent foramen ovale) [Q21.12] 01/23/2020 12/25/2022 Jaw pain [R68.84] 05/12/2020 History of CVA (cerebrovascular accident) [Z86.*05/12/2020 Snoring [R06.83] 05/12/2020 Family history of sleep apnea [Z82.0] 05/12/2020 Depression [F32.A] 05/12/2020 Preop cardiovascular exam [Z01.810] 03/31/2021 Acquired hypothyroidism [E03.9] 04/20/2021 Hypertension [I10] 06/08/2022 Mixed hyperlipidemia [E78.2] 06/08/2022 Cerebrovascular accident (CVA) due to embolism *07/21/2022 Leg length discrepancy [M21.70] 02/05/2023 Low vision right eye category 1, low vision lef*04/08/2024 Homonymous hemianopsia, left [H53.462] 04/08/2024 Presbyopia [H52.4] 04/08/2024 Encounter Status:Closed by VICTORINA PRODUSER on 12/26/24 [facility] 12-19-2024 Note HNO ID: [id number] Author: ?, ?, ? Service: ? Author Type: ? Type: Progress Notes Filed: 12/19/2024 09:12 Note Text: Called and scheduled pt appts. [facility] 12-19-2024 History of Present illness Narrative Called and scheduled pt appts. 1st attempt to schedule with primary care, sent [employer] message. Millie Balderrama Patient is overdue for office visit for diabetes management, please schedule LETHA with either provider. Also due for fasting labs, please complete 1 week prior to appointment, offer to schedule lab as well Vadim Teixeira APRN.SRAVANTHI documented in this encounter [facility] 12-17-2024 Note HNO ID: [id number] Author: ?, ?, ? Service: ? Author Type: ? Type: Progress Notes Filed: 12/19/2024 09:12 Note Text: 1st attempt to schedule with primary care, sent [employer] message. Millie Balderrama [facility] 12-17-2024 Note HNO ID: [id number] Author: VADIM TEIXEIRA APRN.SRAVANTHI Service: ? Author Type: Nurse Practitioner Type: Progress Notes Filed: 12/19/2024 09:12 Note Text: Patient is overdue for office visit for diabetes management, please schedule LETHA with either provider. Also due for fasting labs, please complete 1 week prior to appointment, offer to schedule lab as well Vadim Teixeira APRN.SRAVANTHI [facility] 12-17-2024 Note Patient Outreach (FP ALYDS) MARTHA VENEGAS ([id number]) 1970 F Date Time Provider Department 12/17/24 [facility] During your visit today, we recorded the following information about you: Vadim Teixeira APRN.CNP 12/19/2024 9:12 AM Signed Patient is overdue for office visit for diabetes management, please schedule LETHA with either provider. Also due for fasting labs, please complete 1 week prior to appointment, offer to schedule lab as well Vadim Teixeira APRN.Millie Nelson 12/19/2024 9:12 AM Signed 1st attempt to schedule with primary care, sent [employer] message. Arun Ni 12/19/2024 9:12 AM Signed Called and scheduled pt appts. Allergies As of Date: 12/17/2024 Noted Allergy Reaction FISH CONTAINING PRODUCTS 04/29/2019 4 - Hives 7 - Swelling TETANUS VACCINES AND TOXOID 04/30/2009 Comments: Local Reaction Date Reviewed: 06/11/2024 Reviewed by: Mckenzie Flores MA - Fully Assessed Primary Visit Diagnosis:Type 2 diabetes mellitus without complication, without long-term current use of insulin (HCC) [E11.9] Other Visit Diagnosis:Mixed hyperlipidemia [E78.2] Order(s):LIPID PANEL BASIC [SQLIPB] Order #: [id number] FUTURE HEMOGLOBIN A1C [QVAYX1T] Order #: [id number] FUTURE Prescriptions as of 12/19/2024 - atorvastatin (LIPITOR) 40 mg tablet Take 1 tablet by mouth once daily. - metoprolol succinate ER (TOPROL XL) 25 mg 24 hr tablet Take 1 tablet by mouth once daily. - hydroCHLOROthiazide 25 mg tablet Take 1 tablet by mouth once daily. - amLODIPine (NORVASC) 10 mg tablet Take 1 tablet by mouth once daily. - clopidogrel (PLAVIX) 75 mg tablet Take 1 tablet by mouth once daily. - metFORMIN (GLUCOPHAGE) 500 mg tablet Take 2 tablets by mouth two times a day with meals. - losartan (COZAAR) 100 mg tablet Take 1 tablet by mouth once daily. - levothyroxine (LEVOXYL) 50 mcg tablet Take 1 tablet by mouth once daily. Take on empty stomach. For Thyroid - blood sugar diagnostic (BLOOD GLUCOSE TEST) test strip Test blood sugar(s) 2 times daily. Dx: Type 2 DM - Uncontrolled E11.65 Insulin: No - Lancets lancets Test blood sugar(s) 2 times daily. Dx: Type 2 DM - Uncontrolled E11.65 Insulin: No - TRUE METRIX GLUCOSE METER Glucose Meter of Choice - Kit - Dx Type 2 DM - Uncontrolled E11.65 - Miscellaneous Medical Supply 1 Each once daily. - MULTIVITAMIN ORAL Take by mouth once daily. - aspirin, enteric coated (ASPIRIN, ENTERIC COATED) 81 mg EC tablet take 1 tablet by mouth once daily Problem List As Of Date 12/17/2024 Noted Resolved CALCANEAL SPUR [M77.30] 09/22/2008 Primary hypertension [I10] 10/06/2008 Class 2 obesity with body mass index (BMI) of 3*10/06/2008 GANGLION OF JOINT [M67.40] 10/21/2008 IMPAIRED FASTING GLUCOSE [R73.01] 04/28/2009 Asthma [J45.909] 09/27/2009 Abnormality of Gait [R26.9] 04/27/2010 Attention deficit disorder of adult [F98.8] 10/23/2011 Pain in joint, shoulder region [M25.519] 09/05/2012 Adnexal mass [N94.89] 04/29/2013 Pain in left foot [M79.672] 08/17/2015 Pain in right foot [M79.671] 08/17/2015 Bilateral low back pain without sciatica [M54.5*08/17/2015 Diabetes mellitus (HCC) [E11.9] 10/10/2016 Plantar fascial fibromatosis of both feet [M72.*04/16/2017 TIA (transient ischemic attack) [G45.9] 01/16/2019 03/10/2019 Visual loss, both eyes [H54.3] 01/27/2019 Occipital stroke (HCC) [I63.9] 01/16/2019 PFO (patent foramen ovale) [Q21.12] 01/23/2020 12/25/2022 Jaw pain [R68.84] 05/12/2020 History of CVA (cerebrovascular accident) [Z86.*05/12/2020 Snoring [R06.83] 05/12/2020 Family history of sleep apnea [Z82.0] 05/12/2020 Depression [F32.A] 05/12/2020 Preop cardiovascular exam [Z01.810] 03/31/2021 Acquired hypothyroidism [E03.9] 04/20/2021 Hypertension [I10] 06/08/2022 Mixed hyperlipidemia [E78.2] 06/08/2022 Cerebrovascular accident (CVA) due to embolism *07/21/2022 Leg length discrepancy [M21.70] 02/05/2023 Low vision right eye category 1, low vision lef*04/08/2024 Homonymous hemianopsia, left [H53.462] 04/08/2024 Presbyopia [H52.4] 04/08/2024 Encounter Status:Closed by ARUN FRAZIER on 12/19/24 [facility] 11-12-2024 Telephone encounter Note Pt was notified of the results. Pt verbalized understanding. Ted Dave MA [facility] 11-12-2024 Miscellaneous Notes Pt was notified of the results. Pt verbalized understanding. Ted Dave MA You tested positive for COVID-19. You can go back to your normal activities when, for at least 24 hours, both are true: - Your symptoms are getting better overall, and - You have not had a fever (and are not using fever-reducing medication). When you go back to your normal activities, take added precaution over the next 5 days, such as taking additional steps for basin cleaner air, hygiene, masks, physical distancing, and/or testing when you will be around other people indoors. You may be eligible for antiviral treatment, but there are interactions with a couple of you medications. Please call your doctor's office to schedule a virtual visit to discuss your eligibility if you are interested in taking Paxlovid. Please contact us if your symptoms are worsening or not improving. documented in this encounter [facility] 11-12-2024 Telephone encounter Note You tested positive for COVID-19. You can go back to your normal activities when, for at least 24 hours, both are true: - Your symptoms are getting better overall, and - You have not had a fever (and are not using fever-reducing medication). When you go back to your normal activities, take added precaution over the next 5 days, such as taking additional steps for basin cleaner air, hygiene, masks, physical distancing, and/or testing when you will be around other people indoors. You may be eligible for antiviral treatment, but there are interactions with a couple of you medications. Please call your doctor's office to schedule a virtual visit to discuss your eligibility if you are interested in taking Paxlovid. Please contact us if your symptoms are worsening or not improving. [facility] Work Phone: 11-11-2024 History of Present illness Narrative Radiology Service Progress Note PATIENT NAME: Martha Venegas DATE OF SERVICE: November 11, 2024 TIME: 2:57 PM PATIENT IDENTITY VERIFICATION COMPLETED USING TWO (2) IDENTIFIERS: Name and Date of confirmed by patient verbally. FALL SCREENING: Has the patient had 2 falls in the last year or 1 fall with injury or currently using an Ambulatory Assistive Device (Walker, Cane, Wheelchair, Crutches, etc.)? No PATIENT GENDER DATA: Female. status: : No status: NO. PATIENT RELEVANT IMPLANT DATA REVIEWED: Not Applicable PATIENT PRESENTS WITH AN IMPLANTABLE OR ATTACHED SUBSCRIPTION AGENT: No RADIOLOGY DEPARTMENT: General X-ray: Exam(s) Completed: Chest X-Ray PERIPHERAL IV DATA: Not applicable SIGNED BY: RT Mariela(Herbie) November 11, 2024 2:57 PM documented in this encounter [facility] 11-11-2024 Note HNO ID: [id number] Author: LUIS A HADDAD RT(Herbie) Service: Radiology Author Type: Technologist Type: Progress Notes Filed: 11/11/2024 15:05 Note Text: Radiology Service Progress Note PATIENT NAME: Martha Venegas DATE OF SERVICE: November 11, 2024 TIME: 2:57 PM PATIENT IDENTITY VERIFICATION COMPLETED USING TWO (2) IDENTIFIERS: Name and Date of confirmed by patient verbally. FALL SCREENING: Has the patient had 2 falls in the last year or 1 fall with injury or currently using an Ambulatory Assistive Device (Walker, Cane, Wheelchair, Crutches, etc.)? No PATIENT GENDER DATA: Female. status: : No status: NO. PATIENT RELEVANT IMPLANT DATA REVIEWED: Not Applicable PATIENT PRESENTS WITH AN IMPLANTABLE OR ATTACHED SUBSCRIPTION AGENT: No RADIOLOGY DEPARTMENT: General X-ray: Exam(s) Completed: Chest X-Ray PERIPHERAL IV DATA: Not applicable SIGNED BY: RT Mariela(Herbie) November 11, 2024 2:57 PM [facility] 11-11-2024 Note HNO ID: [id number] Author: ENEIDA LOYOLA PA Service: ? Author Type: Physician Tire Recapper Type: Progress Notes Filed: 11/11/2024 15:21 Note Text: This note was created using Sensdatariter. Subjective Martha Venegas is a 54 year old female. HPI 54-year-old female presents for cough, chest congestion, nasal congestion, fevers x 2 days. Patient states she started getting sick 2 days ago. She has a cough. She states that she today she coughed up phlegm tinged with sputum. She states that her phlegm is very sticky. She states she has some shortness of breath with cough. She states that she has had some fevers the past 2 days. Tmax 104 ?F yesterday. She has not taken any Tylenol or Motrin today. She has not had a fever yet today. She states she has had some nasal congestion. Patient is a diabetic and states her blood sugar was elevated 2 days ago, states it is still slightly elevated today, but not as high. She states this morning glucose was 186. She has been taking medication as prescribed. Patient denies any chest pain. She did have an episode of vomiting this morning with coughing. No diarrhea. No abdominal pain. She took some ZzzQuil last night without much improvement. PAST MEDICAL HISTORY Diagnosis Date Asthma Seasonal, uses Albuterol once a month Diabetes mellitus (HCC) Family history of sleep apnea History of stroke Hypertension Mixed hyperlipidemia PFO (patent foramen ovale) Status post placement of implantable loop recorder Stroke (cerebrum) (HCC) TMJ arthritis PAST SURGICAL HISTORY Procedure Laterality Date OOPHORECTOMY PARTIAL/TOTAL UNI/BI 2006 Right PAST SURGICAL HISTORY OF 2007 Excision abdominal mass PAST SURGICAL HISTORY OF 10/14/2008 right foot soft tissue mass excision PAST SURGICAL HISTORY OF 11/03/2010 Left planter fasciotomy PAST SURGICAL HISTORY OF 12/11/2022 PFO VAGINAL HYSTERECTOMY UTERUS 250 GM/< 2007 Hysterectomy, vaginal XTRNL PT ACTIV ECG TRANSMIS W/GABRIELE ALLERGIES Fish Containing Products and Tetanus Vaccines And Toxoid MEDICATIONS atorvastatin (LIPITOR) 40 mg tablet Take 1 tablet by mouth once daily. metoprolol succinate ER (TOPROL XL) 25 mg 24 hr tablet Take 1 tablet by mouth once daily. hydroCHLOROthiazide 25 mg tablet Take 1 tablet by mouth once daily. amLODIPine (NORVASC) 10 mg tablet Take 1 tablet by mouth once daily. clopidogrel (PLAVIX) 75 mg tablet Take 1 tablet by mouth once daily. metFORMIN (GLUCOPHAGE) 500 mg tablet Take 2 tablets by mouth two times a day with meals. losartan (COZAAR) 100 mg tablet Take 1 tablet by mouth once daily. levothyroxine (LEVOXYL) 50 mcg tablet Take 1 tablet by mouth once daily. Take on empty stomach. For Thyroid blood sugar diagnostic (BLOOD GLUCOSE TEST) test strip Test blood sugar(s) 2 times daily. Dx: Type 2 DM - Uncontrolled E11.65 Insulin: No Lancets lancets Test blood sugar(s) 2 times daily. Dx: Type 2 DM - Uncontrolled E11.65 Insulin: No TRUE METRIX GLUCOSE METER Glucose Meter of Choice - Kit - Dx Type 2 DM - Uncontrolled E11.65 Miscellaneous Medical Supply 1 Each once daily. MULTIVITAMIN ORAL Take by mouth once daily. aspirin, enteric coated (ASPIRIN, ENTERIC COATED) 81 mg EC tablet take 1 tablet by mouth once daily FAMILY HISTORY Problem Relation Age of Onset Diabetes Mother Diabetes Maternal Grandmother Diabetes Paternal Grandmother other (attention deficit) Son Diabetes Maternal Uncle other (no cardiac hx per pt) Other Social History Tobacco Use Smoking status: Never Smokeless tobacco: Never Vaping Use Vaping status: Never Used Substance Use Topics Alcohol use: Yes Comment: rare Drug use: No Review of Systems Constitutional: Positive for chills, fatigue and fever. HENT: Positive for congestion. Negative for ear pain and sore throat. Respiratory: Positive for cough and shortness of breath. Cardiovascular: Negative for chest pain. Gastrointestinal: Negative for diarrhea and vomiting. Musculoskeletal: Positive for myalgias. Objective BP 128/82 Pulse 87 Temp 36.6 ?C (97.8 ?F) (Tympanic) Resp 18 Wt 89.2 kg (196 lb 10.4 oz) SpO2 97% BMI 33.76 kg/m? Physical Exam Vitals and nursing note reviewed. Constitutional: General: She is not in acute distress. Appearance: Normal appearance. She is not toxic-appearing. HENT: Right Ear: Tympanic membrane and ear canal normal. Left Ear: Tympanic membrane and ear canal normal. Nose: Congestion present. Mouth/Throat: Mouth: Mucous membranes are moist. Pharynx: Oropharynx is clear. Eyes: Conjunctiva/sclera: Conjunctivae normal. Cardiovascular: Rate and Rhythm: Normal rate and regular rhythm. Pulmonary: Effort: Pulmonary effort is normal. Breath sounds: No wheezing, rhonchi or rales. Skin: General: Skin is warm and dry. Neurological: Mental Status: She is alert. Assessment and Plan ASSESSMENT/PLAN: 1. Acute cough - ICD9: 786.2, ICD10: R05.1 (prim (more content not included)... [facility] 11-11-2024 History of Present illness Narrative This note was created using Sensdatariter. Subjective Martha Venegas is a 54 year old female. HPI 54-year-old female presents for cough, chest congestion, nasal congestion, fevers x 2 days. Patient states she started getting sick 2 days ago. She has a cough. She states that she today she coughed up phlegm tinged with sputum. She states that her phlegm is very sticky. She states she has some shortness of breath with cough. She states that she has had some fevers the past 2 days. Tmax 104 F yesterday. She has not taken any Tylenol or Motrin today. She has not had a fever yet today. She states she has had some nasal congestion. Patient is a diabetic and states her blood sugar was elevated 2 days ago, states it is still slightly elevated today, but not as high. She states this morning glucose was 186. She has been taking medication as prescribed. Patient denies any chest pain. She did have an episode of vomiting this morning with coughing. No diarrhea. No abdominal pain. She took some ZzzQuil last night without much improvement. PAST MEDICAL HISTORY Diagnosis Date Asthma Seasonal, uses Albuterol once a month Diabetes mellitus (HCC) Family history of sleep apnea History of stroke Hypertension Mixed hyperlipidemia PFO (patent foramen ovale) Status post placement of implantable loop recorder Stroke (cerebrum) (HCC) TMJ arthritis PAST SURGICAL HISTORY Procedure Laterality Date OOPHORECTOMY PARTIAL/TOTAL UNI/BI 2007 Right PAST SURGICAL HISTORY OF 2007 Excision abdominal mass PAST SURGICAL HISTORY OF 10/14/2008 right foot soft tissue mass excision PAST SURGICAL HISTORY OF 11/03/2010 Left planter fasciotomy PAST SURGICAL HISTORY OF 12/11/2022 PFO VAGINAL HYSTERECTOMY UTERUS 250 GM/< 2006 Hysterectomy, vaginal XTRNL PT ACTIV ECG TRANSMIS W/R&I </30 DAYS 08/15/2019 ALLERGIES Fish Containing Products and Tetanus Vaccines And Toxoid MEDICATIONS atorvastatin (LIPITOR) 40 mg tablet Take 1 tablet by mouth once daily. metoprolol succinate ER (TOPROL XL) 25 mg 24 hr tablet Take 1 tablet by mouth once daily. hydroCHLOROthiazide 25 mg tablet Take 1 tablet by mouth once daily. amLODIPine (NORVASC) 10 mg tablet Take 1 tablet by mouth once daily. clopidogrel (PLAVIX) 75 mg tablet Take 1 tablet by mouth once daily. metFORMIN (GLUCOPHAGE) 500 mg tablet Take 2 tablets by mouth two times a day with meals. losartan (COZAAR) 100 mg tablet Take 1 tablet by mouth once daily. levothyroxine (LEVOXYL) 50 mcg tablet Take 1 tablet by mouth once daily. Take on empty stomach. For Thyroid blood sugar diagnostic (BLOOD GLUCOSE TEST) test strip Test blood sugar(s) 2 times daily. Dx: Type 2 DM - Uncontrolled E11.65 Insulin: No Lancets lancets Test blood sugar(s) 2 times daily. Dx: Type 2 DM - Uncontrolled E11.65 Insulin: No TRUE METRIX GLUCOSE METER Glucose Meter of Choice - Kit - Dx Type 2 DM - Uncontrolled E11.65 Miscellaneous Medical Supply 1 Each once daily. MULTIVITAMIN ORAL Take by mouth once daily. aspirin, enteric coated (ASPIRIN, ENTERIC COATED) 81 mg EC tablet take 1 tablet by mouth once daily FAMILY HISTORY Problem Relation Age of Onset Diabetes Mother Diabetes Maternal Grandmother Diabetes Paternal Grandmother other (attention deficit) Son Diabetes Maternal Uncle other (no cardiac hx per pt) Other Social History Tobacco Use Smoking status: Never Smokeless tobacco: Never Vaping Use Vaping status: Never Used Substance Use Topics Alcohol use: Yes Comment: rare Drug use: No Review of Systems Constitutional: Positive for chills, fatigue and fever. HENT: Positive for congestion. Negative for ear pain and sore throat. Respiratory: Positive for cough and shortness of breath. Cardiovascular: Negative for chest pain. Gastrointestinal: Negative for diarrhea and vomiting. Musculoskeletal: Positive for myalgias. Objective BP 128/82 Pulse 87 Temp 36.6 C (97.8 F) (Tympanic) Resp 18 Wt 89.2 kg (196 lb 10.4 oz) SpO2 97% BMI 33.76 kg/m Physical Exam Vitals and nursing note reviewed. Constitutional: General: She is not in acute distress. Appearance: Normal appearance. She is not toxic-appearing. HENT: Right Ear: Tympanic membrane and ear canal normal. Left Ear: Tympanic membrane and ear canal normal. Nose: Congestion present. Mouth/Throat: Mouth: Mucous membranes are moist. Pharynx: Oropharynx is clear. Eyes: Conjunctiva/sclera: Conjunctivae normal. Cardiovascular: Rate and Rhythm: Normal rate and regular rhythm. Pulmonary: Effort: Pulmonary effort is normal. Breath sounds: No wheezing, rhonchi or rales. Skin: General: Skin is warm and dry. Neurological: Mental Status: She is alert. Assessment and Plan ASSESSMENT/PLAN: 1. Acute cough - ICD9: 786.2, ICD10: R05.1 (primary diagnosis) - XR CHEST 2V FRONTAL/LAT-no acute radiographic abnormality 2. URI, acute - ICD9: 465.9, ICD10: J06.9 - Discussed viral etiology and rationale for treatment. - Symptomatic treatment with prn analgesia - Supportive care with fluids and rest - The patient may also use OTC cough and cold meds as needed. - COVID & INFLUENZA A/B & RSV PCR, ROUTINE -Out of window for Tamiflu. -Candidate for Paxlovid if patient is interested in this. GFR 94. Diagnosis and treatment plan were discussed and questions were answered to the patient's satisfaction. Pt acknowledged understanding of concepts and follow up plan. Specific signs and symptoms that would indicate the need for higher level of care were discussed in detail warranting prompt ER evaluation. KRYSTYNA Renteria documented in this encounter [facility] 09-15-2024 Telephone encounter Note Prescription Refill Information The patient has been identified by name and date of : Yes Caregiver verified no other encounters exist for this prescription request: Yes Caregiver confirmed with patient/requestor that no other refills are due, in the near future, with this provider at this time: Yes The last office visit in the department: 01/08/24 Does the patient have a future office visit with this provider/department: No Requested Prescriptions Pending Prescriptions Disp Refills atorvastatin (LIPITOR) 40 mg tablet [Pharmacy Med Name: ATORVASTATIN 40 MG TABLET] 30 tablet 1 Sig: take 1 tablet by mouth once daily Jazlyn Napoles MA September 15, 2024 9:[address] [facility] 09-15-2024 Miscellaneous Notes Prescription Refill Information The patient has been identified by name and date of : Yes Caregiver verified no other encounters exist for this prescription request: Yes Caregiver confirmed with patient/requestor that no other refills are due, in the near future, with this provider at this time: Yes The last office visit in the department: 01/08/24 Does the patient have a future office visit with this provider/department: No Requested Prescriptions Pending Prescriptions Disp Refills atorvastatin (LIPITOR) 40 mg tablet [Pharmacy Med Name: ATORVASTATIN 40 MG TABLET] 30 tablet 1 Sig: take 1 tablet by mouth once daily Jazlyn Napoles MA September 15, 2024 9:45 AM documented in this encounter [facility] 07-04-2024 Telephone encounter Note The following approved medication requests have been transmitted electronically. Requested Prescriptions Signed Prescriptions Disp Refills atorvastatin (LIPITOR) 40 mg tablet 30 tablet 1 Sig: take 1 tablet by mouth once daily Authorizing Provider: ISABEL DAVENPORT MD [facility] 07-04-2024 Miscellaneous Notes The following approved medication requests have been transmitted electronically. Requested Prescriptions Signed Prescriptions Disp Refills atorvastatin (LIPITOR) 40 mg tablet 30 tablet 1 Sig: take 1 tablet by mouth once daily Authorizing Provider: ISABEL DAVENPORT MD Prescription Refill Information The patient has been identified by name and date of : Yes Caregiver verified no other encounters exist for this prescription request: Yes Caregiver confirmed with patient/requestor that no other refills are due, in the near future, with this provider at this time: Yes The last office visit in the department: 01/08/24 Does the patient have a future office visit with this provider/department: Yes Requested Prescriptions Pending Prescriptions Disp Refills atorvastatin (LIPITOR) 40 mg tablet [Pharmacy Med Name: ATORVASTATIN 40 MG TABLET] 30 tablet 1 Sig: take 1 tablet by mouth once daily Jazlyn Napoles MA July 04, 2024 9:57 AM documented in this encounter [facility] 07-04-2024 Telephone encounter Note Prescription Refill Information The patient has been identified by name and date of : Yes Caregiver verified no other encounters exist for this prescription request: Yes Caregiver confirmed with patient/requestor that no other refills are due, in the near future, with this provider at this time: Yes The last office visit in the department: 01/08/24 Does the patient have a future office visit with this provider/department: Yes Requested Prescriptions Pending Prescriptions Disp Refills atorvastatin (LIPITOR) 40 mg tablet [Pharmacy Med Name: ATORVASTATIN 40 MG TABLET] 30 tablet 1 Sig: take 1 tablet by mouth once daily Jazlyn Napoles MA July 04, 2024 9:[address] [facility] 06-11-2024 Note HNO ID: [id number] Author: MERARI CAMARILLO MD Service: ? Author Type: Physician Type: Progress Notes Filed: 06/11/2024 16:14 Note Text: HISTORY OF PRESENT ILLNESS: Ms. Venegas is a 53 year old female with a history of obesity, hypertension, hyperlipidemia, diabetes and CVA in 01/21 who presents to cardiology clinic for routine follow-up. Patient reports that in January 2019, she started having episodes of confusion where she would get lost while at work or while driving around town. 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 She was found to have hemianopsia and was taken to the ER for further evaluation. She did have an MRI and MRA of the brain revealing scattered areas of acute infarct in the right occipital lobe with an occluded right BOTTOM PAINTER. She was admitted to [facility] for further evaluation. Of note, prior to her hospitalization, her diabetes was not optimally controlled as her hemoglobin A1c was 10, her blood pressures were suboptimal ranging in the 150s/90s-100s, and her lipids were not optimally controlled and she was not on statin therapy. During her hospitalization, her medications were adjusted with improved blood sugar and blood pressure control. She did have a TTE and a LB performed revealing normal LV systolic function without evidence of intracardiac thrombus or masses but with evidence of a PFO. Since her hospitalization, she did wear an event monitor revealing no evidence of arrhythmias. She has since undergone a loop recorder implantation in 08/23 which has not revealed any evidence of atrial arrhythmias. Patient was referred to [facility] for PFO closure. She did undergo attempted procedure on 12/11/2022 but was not found to have any evidence of intracardiac shunting. In discussion with the patient in the office today, she reports doing well from a cardiac standpoint. She denies any complaints of chest pain, dyspnea on exertion, orthopnea, paroxysmal nocturnal dyspnea, lower extremity edema, presyncope, syncope, or palpitations. She does not engage in any regular exercise but has started hiking twice a day with her family. 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 Of note, patient reports that she has transition to working third shift in the last 6 to 8 weeks. She also became depressed about the number of pills she was taking. Due to the combination of the above, she has not been compliant with any of her medications for the last 6 weeks and has been taking them only approximately 10 to 20% of the time. In addition, she has not been checking her blood pressure regularly. When she was compliant with her medications and was checking her blood pressures back in April 2024, she reports they were very well-controlled in the 110s-120s/70s. PAST MEDICAL HISTORY No date: Asthma Comment: Seasonal, uses Albuterol once a month No date: Diabetes mellitus (HCC) No date: Family history of sleep apnea No date: History of stroke No date: Hypertension No date: Mixed hyperlipidemia No date: PFO (patent foramen ovale) No date: Status post placement of implantable loop recorder No date: Stroke (cerebrum) (HCC) No date: TMJ arthritis PAST SURGICAL HISTORY 2006: OOPHORECTOMY PARTIAL/TOTAL UNI/BI Comment: Right 2008: PAST SURGICAL HISTORY OF Comment: Excision abdominal mass 10/14/2008: PAST SURGICAL HISTORY OF Comment: right foot soft tissue mass excision 11/03/2010: PAST SURGICAL HISTORY OF Comment: Left planter fasciotomy 12/11/2022: PAST SURGICAL HISTORY OF Comment: PFO 2007: VAGINAL HYSTERECTOMY UTERUS 250 GM/< Comment: Hysterectomy, vaginal 08/15/2019: XTRNL PT ACTIV ECG TRANSMIS W/GARBIELE MEDICATIONS: hydroCHLOROthiazide 25 mg tablet Take 1 tablet by mouth once daily. amLODIPine (NORVASC) 10 mg tablet Take 1 tablet by mouth once daily. clopidogrel (PLAVIX) 75 mg tablet Take 1 tablet by mouth once daily. metFORMIN (GLUCOPHAGE) 500 mg tablet Take 2 tablets by mouth two times a day with meals. atorvastatin (LIPITOR) 40 mg tablet Take 1 tablet by mouth once daily. losartan (COZAAR) 100 mg tablet Take 1 tablet by mouth once daily. levothyroxine (LEVOXYL) 50 mcg tablet Take 1 tablet by mouth once daily. Take on empty stomach. For Thyroid blood sugar diagnostic (BLOOD GLUCOSE TEST) test strip Test blood sugar(s) 2 times daily. Dx: Type 2 DM - Uncontrolled E11.65 Insulin: No Lancets lancets Test blood sugar(s) 2 times daily. Dx: Type 2 DM - Uncontrolled E11.65 Insulin: No TRUE METRIX GLUCOSE METER Glucose Meter of Choice - Kit - Dx Type 2 DM - Uncontrolled E11.65 Miscellaneous Medical Supply 1 Each once daily. MULTIVITAMIN ORAL Take by mouth once daily. aspirin, enteric coated (ASPIRIN, (more content not included)... [facility] 06-11-2024 History of Present illness Narrative HISTORY OF PRESENT ILLNESS: Ms. Venegas is a 53 year old female with a history of obesity, hypertension, hyperlipidemia, diabetes and CVA in 01/21 who presents to cardiology clinic for routine follow-up. Patient reports that in January 2019, she started having episodes of confusion where she would get lost while at work or while driving around town. 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 She was found to have hemianopsia and was taken to the ER for further evaluation. She did have an MRI and MRA of the brain revealing scattered areas of acute infarct in the right occipital lobe with an occluded right BOTTOM PAINTER. She was admitted to [facility] for further evaluation. Of note, prior to her hospitalization, her diabetes was not optimally controlled as her hemoglobin A1c was 10, her blood pressures were suboptimal ranging in the 150s/90s-100s, and her lipids were not optimally controlled and she was not on statin therapy. During her hospitalization, her medications were adjusted with improved blood sugar and blood pressure control. She did have a TTE and a LB performed revealing normal LV systolic function without evidence of intracardiac thrombus or masses but with evidence of a PFO. Since her hospitalization, she did wear an event monitor revealing no evidence of arrhythmias. She has since undergone a loop recorder implantation in 08/23 which has not revealed any evidence of atrial arrhythmias. Patient was referred to [facility] for PFO closure. She did undergo attempted procedure on 12/11/2022 but was not found to have any evidence of intracardiac shunting. In discussion with the patient in the office today, she reports doing well from a cardiac standpoint. She denies any complaints of chest pain, dyspnea on exertion, orthopnea, paroxysmal nocturnal dyspnea, lower extremity edema, presyncope, syncope, or palpitations. She does not engage in any regular exercise but has started hiking twice a day with her family. 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 Of note, patient reports that she has transition to working third shift in the last 6 to 8 weeks. She also became depressed about the number of pills she was taking. Due to the combination of the above, she has not been compliant with any of her medications for the last 6 weeks and has been taking them only approximately 10 to 20% of the time. In addition, she has not been checking her blood pressure regularly. When she was compliant with her medications and was checking her blood pressures back in April 2024, she reports they were very well-controlled in the 110s-120s/70s. PAST MEDICAL HISTORY No date: Asthma Comment: Seasonal, uses Albuterol once a month No date: Diabetes mellitus (HCC) No date: Family history of sleep apnea No date: History of stroke No date: Hypertension No date: Mixed hyperlipidemia No date: PFO (patent foramen ovale) No date: Status post placement of implantable loop recorder No date: Stroke (cerebrum) (HCC) No date: TMJ arthritis PAST SURGICAL HISTORY 2007: OOPHORECTOMY PARTIAL/TOTAL UNI/BI Comment: Right 2008: PAST SURGICAL HISTORY OF Comment: Excision abdominal mass 10/14/2008: PAST SURGICAL HISTORY OF Comment: right foot soft tissue mass excision 11/03/2010: PAST SURGICAL HISTORY OF Comment: Left planter fasciotomy 12/11/2022: PAST SURGICAL HISTORY OF Comment: PFO 2006: VAGINAL HYSTERECTOMY UTERUS 250 GM/< Comment: Hysterectomy, vaginal 08/15/2019: XTRNL PT ACTIV ECG TRANSMIS W/R&I </30 DAYS MEDICATIONS: hydroCHLOROthiazide 25 mg tablet Take 1 tablet by mouth once daily. amLODIPine (NORVASC) 10 mg tablet Take 1 tablet by mouth once daily. clopidogrel (PLAVIX) 75 mg tablet Take 1 tablet by mouth once daily. metFORMIN (GLUCOPHAGE) 500 mg tablet Take 2 tablets by mouth two times a day with meals. atorvastatin (LIPITOR) 40 mg tablet Take 1 tablet by mouth once daily. losartan (COZAAR) 100 mg tablet Take 1 tablet by mouth once daily. levothyroxine (LEVOXYL) 50 mcg tablet Take 1 tablet by mouth once daily. Take on empty stomach. For Thyroid blood sugar diagnostic (BLOOD GLUCOSE TEST) test strip Test blood sugar(s) 2 times daily. Dx: Type 2 DM - Uncontrolled E11.65 Insulin: No Lancets lancets Test blood sugar(s) 2 times daily. Dx: Type 2 DM - Uncontrolled E11.65 Insulin: No TRUE METRIX GLUCOSE METER Glucose Meter of Choice - Kit - Dx Type 2 DM - Uncontrolled E11.65 Miscellaneous Medical Supply 1 Each once daily. MULTIVITAMIN ORAL Take by mouth once daily. aspirin, enteric coated (ASPIRIN, ENTERIC COATED) 81 mg EC tablet take 1 tablet by mouth once daily metoprolol succinate ER (TOPROL XL) 25 mg 24 hr tablet Take 1 tablet by mouth once daily. ALLERGIES Allergen Reactions Fish Containing Pro* Hives, Swelling Tetanus Vaccines An* Local Reaction SOCIAL HISTORY: Social History Tobacco Use Smoking status: Never Smokeless tobacco: Never Vaping Use Vaping Use: Never used Substance Use Topics Alcohol use: Yes Comment: rare Drug use: No FAMILY HISTORY Problem Relation Age of Onset Diabetes Mother Diabetes Maternal Grandmother Diabetes Paternal Grandmother other (attention deficit) Son Diabetes Maternal Uncle other (no cardiac hx per pt) Other REVIEW OF SYSTEMS: GENERAL: Negative for: Fever, Chills, or Night sweats RESPIRATORY: Negative for: Cough, Blood in Sputum, Shortness of breath, Wheezing CARDIAC: Negative history of chest pain on exertion, dyspnea on exertion, orthopnea, paroxysmal nocturnal dyspnea, lower extremity edema, presyncope, syncope, or palpitations I have confirmed and edited as necessary, the [facility] and [facility] PHYSICAL EXAMINATION: BP 180/103[hasnt taken medication yet today[ Pulse 72 Resp 16 Ht 5' 4 (1.63m) Wt 205 lb (93.0kg) SpO2 100% BMI 35.17 kg/(m^2). General appearance: Obese, alert, appears to be in no acute distress, cooperative Lungs: CTAB; no rales, rhonchi, or wheezes Heart: RRR; normal S1/S2; no murmurs/gallops/rubs Extremities: No lower extremity edema bilaterally Neurologic: Grossly nonfocal CARDIAC TESTING: EKG: EKG, 01/16/19: Normal sinus rhythm. Minimal voltage criteria for left ventricular hypertrophy. 30 day event monitor, 03/21-04/21/19: Sinus rhythm throughout with heart rates ranging from 59-97 bpm. No PACs or PVCs noted. Echocardiogram: OSH TTE, 01/17/19: Normal LV systolic function with ejection fraction 70%. Normal diastolic function. No significant valve disease. OSH LB, 01/20/19: Normal LV systolic function with ejection fraction 55%. Redundant noncoronary cusp with mild aortic insufficiency. Small atrial septal aneurysm noted with evidence of PFO with [id number] shunting by color Doppler and right to left shunting with agitated saline contrast. I have personally reviewed the Electrocardiogram and reports of prior echocardiograms as per above. I also reviewed records of patient's hospitalization at [facility] in 01/21 in CareEverywhere. ASSESSMENT: Ms. Venegas is a 53 year old female with a history of obesity, hypertension, hyperlipidemia, diabetes and CVA in 01/21 who presents to cardiology clinic for routine follow-up. PLAN AND RECOMMENDATIONS: 1. CVA, suspected embolic in etiology: Patient with CVA back in 03/23 which was suspected to be embolic in etiology. She did have several potential etiologies for her CVA including prior uncontrolled hypertension, hyperlipidemia, and diabetes. To ensure no evidence of atrial arrhythmias, she has had a loop recorder implanted which did not reveal any evidence of atrial arrhythmias in the last several years. As her OSH TTE/LB did reveal evidence of PFO, she did undergo attempted PFO closure on 12/11/22 revealing no evidence of PFO or intracardiac shunt. Unfortunately, patient has been noncompliant with her medication regimen. I did stress the importance of restarting her medications for her blood pressure and her lipids as she is not high risk for having a recurrent stroke in the setting of her uncontrolled blood pressures. As such, I recommended she restart therapy with aspirin, Plavix, Lipitor along with her blood pressure regimen. 2. Hypertension: Patient reports she has been noncompliant with her medications over the last 6 weeks. In addition, she has not been checking her blood pressures as well. When she was taking her blood pressures regularly, she reports they were very well-controlled at home ranging in the 110s-120s systolic. As such, I stressed to her the importance of restarting her medication therapy given her markedly elevated blood pressure in the office today. She understands that if she continues to be noncompliant with her medications, she will remain at high risk for having recurrent stroke. I recommended she monitor her home blood pressure recordings and contact us with her blood pressure readings in the next few weeks. I reviewed the proper method of checking blood pressure with her including sitting with both feet on the ground and back supported for at least 5 minutes, having her arm at heart level, having an empty bladder, and avoiding caffeine/food for at least an hour prior to checking her blood pressure. 3. Hyperlipidemia: Patient's lipids were previously very well-controlled with LDL of 79 in November 2022. Unfortunately, she has been noncompliant with her Lipitor over the last several months. As a result, her LDL was poorly controlled back in January 2024 with LDL 147. As per above, I did strongly recommend she restart her medication therapy with Lipitor especially given her history of diabetes and prior CVA. I recommended she contact us with her blood pressure readings in the next 3 to 4 weeks. Otherwise, I will arrange follow-up visit with our nurse practitioners in the next 2 months to ensure she is back on her medications and her blood pressures are back at goal. Some elements of A&P were copied from note from 12/25/2022, which have been updated where appropriate, and all reflect current medical decision making from today (June 11, 2024). Merari Camarillo MD documented in this encounter [facility] 06-11-2024 Instructions Merari Camarillo MD - 06/11/2024 2:42 PM EDT Restart taking medications Monitor home blood pressures and call us with readings in 4 weeks Once blood pressures improved, restart regular exercise program with goal of walking 30 minutes, 5 days weekly documented in this encounter [facility] 06-11-2024 Nurse Note Patient has no cardiac complaints today. Mckenzie Flores CMA [facility] 06-11-2024 Nurse Note Patient has no cardiac complaints today. Mckenzie Flores CMA documented in this encounter [facility] 05-12-2024 Telephone encounter Note Prescription Refill Information The patient has been identified by name and date of : Yes Caregiver verified no other encounters exist for this prescription request: Yes Caregiver confirmed with patient/requestor that no other refills are due, in the near future, with this provider at this time: Yes The last office visit in the department: 01/08/24 Does the patient have a future office visit with this provider/department: No Requested Prescriptions Pending Prescriptions Disp Refills metFORMIN (GLUCOPHAGE) 500 mg tablet 360 tablet 3 Sig: Take 2 tablets by mouth two times a day with meals. atorvastatin (LIPITOR) 40 mg tablet 30 tablet 1 Sig: Take 1 tablet by mouth once daily. metoprolol tartrate, short acting, (LOPRESSOR) 25 mg tablet 90 tablet 3 Sig: Take 0.5 tablets by mouth two times a day. Anastasia Ulloa LPN May 12, 2024 10:[address] [facility] 05-12-2024 Miscellaneous Notes Prescription Refill Information The patient has been identified by name and date of : Yes Caregiver verified no other encounters exist for this prescription request: Yes Caregiver confirmed with patient/requestor that no other refills are due, in the near future, with this provider at this time: Yes The last office visit in the department: 01/08/24 Does the patient have a future office visit with this provider/department: No Requested Prescriptions Pending Prescriptions Disp Refills metFORMIN (GLUCOPHAGE) 500 mg tablet 360 tablet 3 Sig: Take 2 tablets by mouth two times a day with meals. atorvastatin (LIPITOR) 40 mg tablet 30 tablet 1 Sig: Take 1 tablet by mouth once daily. metoprolol tartrate, short acting, (LOPRESSOR) 25 mg tablet 90 tablet 3 Sig: Take 0.5 tablets by mouth two times a day. Anastasia Ulloa LPN May 12, 2024 10:55 AM documented in this encounter [facility] 05-12-2024 Telephone encounter Note Prescription Refill Information The patient has been identified by name and date of : Yes Caregiver verified no other encounters exist for this prescription request: Yes Caregiver confirmed with patient/requestor that no other refills are due, in the near future, with this provider at this time: Yes The last office visit in the department: 01/08/24 Does the patient have a future office visit with this provider/department: No Requested Prescriptions Pending Prescriptions Disp Refills hydroCHLOROthiazide 25 mg tablet 90 tablet 3 Sig: Take 1 tablet by mouth once daily. amLODIPine (NORVASC) 10 mg tablet 90 tablet 3 Sig: Take 1 tablet by mouth once daily. clopidogrel (PLAVIX) 75 mg tablet 90 tablet 3 Sig: Take 1 tablet by mouth once daily. Anastasia Ulloa LPN May 12, 2024 9:[address] [facility] 05-12-2024 Miscellaneous Notes Prescription Refill Information The patient has been identified by name and date of : Yes Caregiver verified no other encounters exist for this prescription request: Yes Caregiver confirmed with patient/requestor that no other refills are due, in the near future, with this provider at this time: Yes The last office visit in the department: 01/08/24 Does the patient have a future office visit with this provider/department: No Requested Prescriptions Pending Prescriptions Disp Refills hydroCHLOROthiazide 25 mg tablet 90 tablet 3 Sig: Take 1 tablet by mouth once daily. amLODIPine (NORVASC) 10 mg tablet 90 tablet 3 Sig: Take 1 tablet by mouth once daily. clopidogrel (PLAVIX) 75 mg tablet 90 tablet 3 Sig: Take 1 tablet by mouth once daily. Anastasia Ulloa LPN May 12, 2024 9:38 AM documented in this encounter [facility] 04-17-2024 Telephone encounter Note Made appointment for patient [facility] 04-17-2024 Miscellaneous Notes Made appointment for patient Please schedule appointment to address the omar Davenport MD documented in this encounter [facility] 04-16-2024 Telephone encounter Note Please schedule appointment to address the omar Davenport MD [facility] 04-08-2024 Note HNO ID: [id number] Author: FERNANDO MOSQUEDA OD Service: ? 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 Recommend Mobilux 10D LED lighted handheld magnifier and stand for more portability/ convenience. Glasses Rx given. Will recheck in 1 month to patient determines if Peli prism if effective in expanding peripheral vision to her left. Then may submit for safety glasses with ground in prism. Reviewed lens size and strength relationship, working distances, and instructed in the use of low vision aids. Demonstrated computer modifications and kali for smartphone that allows for magnification, reads text, and identifies currency, colors, and people. Discussed activities of daily living and recommended non-optical aids for assistance. Recommended local resources for support groups and agencies. Provided applications for audio books/Bible/magazines. Return as needed for low vision care. Time spent with patient included over 50% counseling, reviewing and demonstrating various lens combinations and conditions for low vision, including but not limited to the discussion of magnifiers and lighting. Attending Note The majority of the visit was spent counseling and/or coordinating care for the patient. Counseled the patient regarding visual impairment. Total face to face time was 60 minutes. Signature: Fernando Mosqueda OD Date: 04/08/2024 Time: 1:23 PM Dilation not repeated today, recently performed by referring doctor. Continue care as directed by referring doctor. 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 Recommend Mobilux 10D LED lighted handheld magnifier and stand for more portability/ convenience. Glasses Rx given. Will recheck in 1 month to patient determines if Peli prism if effective in expanding peripheral vision to her left. Then may submit for safety glasses with ground in prism. Reviewed lens size and strength relationship, working distances, and instructed in the use of low vision aids. Demonstrated computer modifications and kali for smartphone that allows for magnification, reads text, and identifies currency, colors, and people. Discussed activities of daily living and recommended non-optical aids for assistance. Recommended local resources for support groups and agencies. Provided applications for audio books/Bible/magazines. Return as needed for low vision care. Time spent with patient included over 50% counseling, reviewing and demonstrating various lens combinations and conditions for low vision, including but not limited to the discussion of magnifiers and lighting. Attending Note The majority of the visit was spent counseling and/or coordinating care for the patient. Counseled the patient regarding visual impairment. Total face to face time was 60 minutes. Signature: Fernando Mosqueda OD Date: 04/08/2024 Time: 1:23 PM Dilation not repeated today, recently performed by referring doctor. Continue care as directed by referring doctor. documented in this encounter [facility] 03-28-2024 Note HNO ID: [id number] Author: ANTONIO CHRISTINA OD Service: ? 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 Type 2 diabetes mellitus without retinopathy (HCC) E11.9 2. Homonymous hemianopsia, left H53.462 Educated pt No signs of ret Continue strict glucose control HH stable Having issues at work with bumping into things in her blind spot Discussed miya glasses for peripheral awareness Will refer to dr. Flavio lebron for radhames Christina OD March 28, 2024 10:47 AM [facility] 03-28-2024 History of Present illness Narrative Encounter Diagnosis ICD-10-CM 1. Type 2 diabetes mellitus without retinopathy (HCC) E11.9 2. Homonymous hemianopsia, left H53.462 Educated pt No signs of ret Continue strict glucose control HH stable Having issues at work with bumping into things in her blind spot Discussed miya glasses for peripheral awareness Will refer to dr. Flavio lebron for radhames Christina OD March 28, 2024 10:47 AM documented in this encounter [facility] 03-03-2024 Telephone encounter Note Form scanned into pt chart per request of pt. Mychart sent notifying pt. Closing encounter. [facility] 03-03-2024 Miscellaneous Notes Form scanned into pt chart per request of pt. Mychart sent notifying pt. Closing encounter. Form filled out/ signed. Please advise pt once it's sent. Remind her the glucose was high on the blood test. We need to see her back in the office to address the sugar Isabel Davenport MD documented in this encounter [facility] 02-29-2024 Telephone encounter Note Form filled out/ signed. Please advise pt once it's sent. Remind her the glucose was high on the blood test. We need to see her back in the office to address the sugar Isabel Davenport MD [facility] 02-28-2024 Telephone encounter Note Please review and advise [facility] 02-28-2024 Miscellaneous Notes Please review and advise documented in this encounter [facility] 02-27-2024 Note Formatting of this n ote might be different from the original. February 28, 2024 PID: [id number] Martha Venegas [address] [place] [address] Dear Theo, We are pleased to inform you that the results of your recent breast imaging exam on 02/26/2024 are normal. Early detection of cancer is very important. We also understand recommendations regarding breast cancer screening are controversial. Please discuss with your primary care provider which strategy is best for you and whether a mammogram is right for you. Your imaging studies and report will be kept on file at [facility] as part of your permanent medical record and are available for your continuing care. Thank you for allowing us to help in meeting your health care needs. Sincerely, Dr. Griffin Interpreting Radiologist [facility] (Normal over 40) [facility] 02-27-2024 Miscellaneous Notes February 28, 2024 PID: [id number] Martha Venegas [address] [facility] [address] [place] [address] Dear Patrick Venegas, We are pleased to inform you that the results of your recent breast imaging exam on 02/26/2024 are normal. Early detection of cancer is very important. We also understand recommendations regarding breast cancer screening are controversial. Please discuss with your primary care provider which strategy is best for you and whether a mammogram is right for you. Your imaging studies and report will be kept on file at [facility] as part of your permanent medical record and are available for your continuing care. Thank you for allowing us to help in meeting your health care needs. Sincerely, Dr. Griffin Interpreting Radiologist [facility] (Normal over 40) documented in this encounter [facility] 02-26-2024 History of Present illness Narrative Radiology Service Progress Note PATIENT NAME: Martha Venegas DATE OF SERVICE: February 26, 2024 TIME: 2:55 PM PATIENT IDENTITY VERIFICATION COMPLETED USING TWO (2) IDENTIFIERS: Name and Date of confirmed by patient verbally. FALL SCREENING: Has the patient had 2 falls in the last year or 1 fall with injury or currently using an Ambulatory Assistive Device (Walker, Cane, Wheelchair, Crutches, etc.)? No PATIENT GENDER DATA: Female. status: : No status: NO. PATIENT RELEVANT IMPLANT DATA REVIEWED: Not Applicable PATIENT PRESENTS WITH AN IMPLANTABLE OR ATTACHED SUBSCRIPTION AGENT: No RADIOLOGY DEPARTMENT: Mammography PERIPHERAL IV DATA: Not applicable SIGNED BY: Lukasz Kirk February 26, 2024 2:55 PM documented in this encounter [facility] 01-08-2024 History of Present illness Narrative CHIEF COMPLAINT Patient presents with: Follow Up HISTORY OF PRESENT ILLNESS Martha Venegas is a 53 year old female who presents here today for follow up. I last saw this patient on 12/31/2023. Hypertension/history of stroke - Currently managed on metoprolol tartrate short acting 25 mg tablet BID, hydrochlorothiazide 2 mg tablet once daily, losartan 100 mg tablet once daily and amlodipine 10 mg tablet once daily - Adherent to regimen - BP elevated upon arrival to office at 164/104 - Checks bp at home at least once a week, averages 120 Stroke symptoms largely resolved, still occasional word finding difficulty and not at 100% on dealing with complex tasks. Diabetes - Currently managed on metformin 500 mg tablet, 2 tablets BID - Has not been checking her BG at home - Reports being out of some her medications; levothyroxine, losartan - Was recently sick, still endorses a mild dry cough - Believes it was the flu - Home Covid test was negative Health Maintenance Due for Hep B Vaccine (1 of 3- 3 dose series) Due for Spirometry Due for HIV Screening Due for Colorectal Cancer Screening Due for Shingrix Vaccine (1 of 2) Due for DTaP, Tdap, Td Vaccine (2- Td or Tdap) Due for HBA1C Due for Urine Albumin:Creatinine Ratio Due for Diabetic Foot Exam Due for Influenza Vaccine Due for Covid-19 Vaccine ( season) Due for Dilated Retinal Exam Due for BP Controlled (<130/80) Labs reviewed. Past medical history, appointments, medications, allergies reviewed. REVIEW OF SYSTEMS General: Feels well, no weight changes, fevers or chills. HEENT: No sinus congestion, earache, sore throat. Cardiac: No chest pain, palpitations Resp: No wheeze or shortness of breath +mild dry cough GI: No reflux symptoms, food intolerance, bowel changes. : No urinary frequency, dysuria. MS: No pain or joint complaints. PAST MEDICAL HISTORY PAST MEDICAL HISTORY Diagnosis Date Asthma Seasonal, uses Albuterol once a month Diabetes mellitus (HCC) Family history of sleep apnea History of stroke Hypertension Mixed hyperlipidemia PFO (patent foramen ovale) Status post placement of implantable loop recorder Stroke (cerebrum) ([facility]) TMJ arthritis PHYSICAL EXAMINATION BP 164/104 Pulse 79 Ht 162.6 cm (5' 4) Wt 94 kg (207 lb 3.7 oz) SpO2 98% BMI 35.57 kg/m Repeat BP: 142/86 General: Alert, well developed, well nourished, no distress, pleasant and cooperative. Obese. Heart: Regular rate and rhythm. Normal S1 and S2. No murmurs, rubs, or gallops. Lungs: Clear to auscultation bilaterally. No respiratory distress. No wheezes, rales, or rhonchi. Abdomen: Soft, non-tender, no distention. Extremities: Feet/ankles without edema, posterior tibial pulses full and symmetrical. Feet: Shoes and socks removed, No deformities, ulcers, calluses, and normal distal pulses Data Reviewed Component Latest Ref Rng & Units 01/07/2024 WBC 3.70 - 11.00 k/uL 12.93 (H) RBC 3.90 - 5.20 m/uL 4.98 Hemoglobin 11.5 - 15.5 g/dL 13.2 Hematocrit 36.0 - 46.0 % 40.5 MCV 80.0 - 100.0 fL 81.3 MCH 26.0 - 34.0 pg 26.5 MCHC 30.5 - 36.0 g/dL 32.6 RDW-CV 11.5 - 15.0 % 13.8 Platelet Count 150 - 400 k/uL 286 MPV 9.0 - 12.7 fL 10.6 Absolute nRBC <0.01 k/uL <0.01 Glucose 74 - 99 mg/dL 204 (H) BUN 7 - 21 mg/dL 13 Creatinine 0.58 - 0.96 mg/dL 0.78 Sodium 136 - 144 mmol/L 137 Potassium 3.7 - 5.1 mmol/L 3.8 Chloride 97 - 105 mmol/L 97 CO2 22 - 30 mmol/L 25 Anion Gap 9 - 18 mmol/L 15 Calcium 8.5 - 10.2 mg/dL 9.9 eGFR >=60 mL/min/1.73m 90 Cholesterol, Total <200 mg/dL 218 (H) Triglyceride <150 mg/dL 129 HDL Cholesterol >39 mg/dL 45 Non HDL Cholesterol <130 mg/dL 173 (H) Fasting Time hrs 12 VLDL Cholesterol <30 mg/dL 26 TC:HDL Ratio <5.10 4.84 LDL Cholesterol <100 mg/dL 147 (H) LDL:HDL Ratio <2.54 3.27 (H) Assessment/Plan (I63.439) 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, unspecified blood vessel laterality (HCC) (primary encounter diagnosis) Comment: In need of refill Plan: clopidogrel (PLAVIX) 75 mg tablet (E11.9) Type 2 diabetes mellitus without complication, with no history of insulin use (HCC) (E11.9) Type 2 diabetes mellitus without complication, without long-term current use of insulin (HCC) Comment: Has not been taking metformin regularly due to new job schedule. Due for routine labs in April, will check A1c today in office Plan: metFORMIN (GLUCOPHAGE) 500 mg tablet, COMP METABOLIC PANEL, ALBUMIN/CREAT RATIO RND UR HEMOGLOBIN A1C (POC), HGB A1C (I10) Essential hypertension Comment: Bp elevated today upon arrival to office, improved on repeat however it did remain above goal. Bp is checked at home once weekly, systolic averages 120. In need of refills. Due for routine lab in April Plan: atorvastatin (LIPITOR) 40 mg tablet, metoprolol tartrate, short acting, (LOPRESSOR) 25 mg tablet, hydroCHLOROthiazide 25 mg tablet, amLODIPine (NORVASC) 10 mg tablet, losartan (COZAAR) 100 mg tablet, COMP METABOLIC PANEL (E03.9) Acquired hypothyroidism Comment: Has been out of this medication, in need of refill Plan: levothyroxine (LEVOXYL) 50 mcg tablet, TSH BLD Lab ordered for 2 months after resuming meds. (Z23) Encounter for immunization Comment: Per health maintenance Plan: ZOSTER VACCINE, RECOMBINANT (SHINGRIX), ZOSTER VACCINE, RECOMBINANT (SHINGRIX), INFLUENZA VACCINE, AGE 6 MO - 64 YR, QUADRIVALENT (AFLURIA, FLULAVAL, FLUZONE) (Z12.11) Encounter for screening fecal occult blood testing Comment: Per health maintenance Plan: FECAL OCCULT BLOOD TEST (Z12.31) Screening mammogram for breast cancer (Z12.31) Encounter for screening mammogram for breast cancer Comment: Per health maintenance Plan: THAD SCREENING (Z11.4) Screening for HIV (human immunodeficiency virus) Comment: Per health maintenance Plan: HIV 1 2 COMBO(AG/AB),WITH REFLEX TO DIFFERENTIATION Requested Prescriptions Signed Prescriptions Disp Refills metFORMIN (GLUCOPHAGE) 500 mg tablet 360 tablet 3 Sig: Take 2 tablets by mouth two times a day with meals. atorvastatin (LIPITOR) 40 mg tablet 30 tablet 1 Sig: Take 1 tablet by mouth once daily. metoprolol tartrate, short acting, (LOPRESSOR) 25 mg tablet 90 tablet 3 Sig: Take 0.5 tablets by mouth two times a day. hydroCHLOROthiazide 25 mg tablet 90 tablet 3 Sig: Take 1 tablet by mouth once daily. amLODIPine (NORVASC) 10 mg tablet 90 tablet 3 Sig: Take 1 tablet by mouth once daily. clopidogrel (PLAVIX) 75 mg tablet 90 tablet 3 Sig: Take 1 tablet by mouth once daily. losartan (COZAAR) 100 mg tablet 90 tablet 3 Sig: Take 1 tablet by mouth once daily. levothyroxine (LEVOXYL) 50 mcg tablet 90 tablet 3 Sig: Take 1 tablet by mouth once daily. Take on empty stomach. For Thyroid RTO: 3 months Scribe Attestation: By signing my name below, IFrancis, attest that this documentation has been prepared under the direction and in the presence of Jaspreet Davenport M.D. Electronically Signed: Antwon Ohara. January 08, 2024 4:41 PM Provider Attestation: IIsabel MD, personally performed the services described in this documentation. All medical record entries made by the scribe were at my direction and in my presence. I have reviewed the chart and discharge instructions (if applicable), and agree that the record reflects my personal performance and is accurate and complete. Electronically Signed: Isabel Davenport MD January 10, 2024 1:46 PM documented in this encounter [facility] 01-08-2024 Miscellaneous Notes Spoke with Martha Venegas on January 08, 2024. Informed of results / instructions as stated above. Patient voiced understanding at this time. Patient states she was off Lipitor therapy for a while, but is starting back up on it. Aleyda Olmedo LPN ----- Message from Merari Camarillo MD sent at 01/08/2024 10:33 AM EST ----- Can you please let Ms. Venegas know her basic metabolic panel revealed normal electrolytes and kidney function. Her glucose was elevated and she should follow up with her PCP in this regards. Her CBC revealed normal blood counts. Her WBC count was slightly elevated and she should follow up with her PCP in this regards. Patient's lipids were not optimally controlled with LDL 147. This is markedly increased when compared to her LDL of 79 from one year ago. Can we ensure she is still taking her lipitor therapy? Thanks, Merari Camarillo MD documented in this encounter [facility] 01-06-2024 Miscellaneous Notes Patient calling to ask if she needs to fast for her lab tests scheduled for tomorrow. Lipid panel, CBC and BMP ordered. Advised it is an 8-10 hour fast, water as much as she likes and black coffee. Patient verbalized understanding/agreement to all information discussed. documented in this encounter [facility] 01-04-2024 History of Present illness Narrative Patient did not attend appointment. Isabel Davenport MD documented in this encounter [facility] 01-02-2024 Miscellaneous Notes 1st attempt,called pt to reschedule appt, left VM Patient was not seen, she checked in from home for her appt and called the call center when she didn't have her video visit. We were told by the call center they would reschedule her. Pt was not seen for scheduled appt 12/31/23 Can clinical team please verify if Martha was not seen for her 12/31/23 appointment? It shows she had an appointment yesterday but there are no notes or RX's. Is it possible she wasn't seen? Thank you, Millie Balderrama Patient is overdue for office visit and fasting labs, please schedule appointment then route back and will send short term supply of medication. Vadim Lau APRN.SRAVANTHI Pharmacy verified in [facility] Patient has been identified by name and date of : Yes Patient aware RX will be sent to pharmacy. No need to notify patient. Patient phones for refill(s): Requested Prescriptions Pending Prescriptions Disp Refills losartan (COZAAR) 100 mg tablet 90 tablet 3 Sig: Take 1 tablet by mouth once daily. Date of last office visit : 11/20/2022 Date of next office visit : 12/30/2023 Last 2 Encounter Wt Readings: Date: Wt: 01/29/2023 95.3 kg (210 lb) 12/25/2022 95.3 kg (210 lb) Blood Pressure: BUN (mg/dL) Date Value 12/11/2022 14 01/06/2021 14 Creatinine (mg/dL) Date Value 12/11/2022 0.81 01/06/2021 0.83 Sodium (mmol/L) Date Value 12/11/2022 138 01/06/2021 140 Potassium (mmol/L) Date Value 12/11/2022 4.2 01/06/2021 3.9 Last 1 Encounter BP Readings: Date: BP: 12/25/2022 146/100 Please advise. Anastasia Ulloa LPN documented in this encounter [facility] 04-10-2023 Miscellaneous Notes Patient's request for medication is as follows: Requested Prescriptions Pending Prescriptions Disp Refills amLODIPine (NORVASC) 10 mg tablet [Pharmacy Med Name: AMLODIPINE BESYLATE 10 MG TAB] 90 tablet 3 Sig: take 1 tablet by mouth once daily Last seen 12/07/22 . Pt on recall list for 06/27. Prescription(s) as above. Please process accordingly. Meredith Justin LPN documented in this encounter [facility] 03-27-2023 Miscellaneous Notes Received 03/27/2023 from [facility]. Placed in provider's inbox for review. Route to OR for scanning Right gluteal pain Zanaflex 4 mg Naproxen 500 mg documented in this encounter [facility] 03-06-2023 History of Present illness Narrative Episode Visit Count: 4 Therapist That Will Accept/Oversee The Plan Of Care: Johny Flores Start of Care Date: 02/05/23 Onset Date: 02/06/20 Plan of Care Certification Date: 03/06/23 Next Certification Due Date: 04/10/23 Patient Identified by Name and Date of : Yes REHABILITATION AND SPORTS THERAPY PHYSICAL THERAPY PROGRESS REPORT PLAN OF CARE UPDATE: Assessment: Martha Venegas demonstrates difficulty with lifting, working, twisting, and bending and improvements in working. She has progressed toward goals. Patient continues to present with impairments in independence in exercise, overall function, range of motion, and tissue tenderness that interfere with working, lifting . Current prognosis is Good due to: current objective clinical presentation . Pt does demonstrates some facet-like pain that may benefit from flexion based exercise and core strengthening. She will benefit from continued skilled therapy services to meet the updated goals for this plan of care as noted below. Goals updated 03/06/2023 Goals for Episode of Care: created on 02/05/23 through Independent in home exercises. - Met so far Restore pain-free lumbar ROM to WNL to allow for ease of bending, twisting, lifting at work - Progressing, will continue Stand / Walk 30 minutes without pain/symptoms. - Progressing, will continue Pt will be able to perform resisted hip flexion without increased RLE - Not assessed symptoms demonstrating improved core strength/stability in 8 weeks or less Patient Goals: Decrease pain Patient Goals: Decrease pain Planned Interventions, Frequency, and Duration: 1x/week, 4 weeks Total Number of Visits Planned: 4 Patient to be seen for Therapeutic exercise (35321), Neuromuscular re-education (83519), Manual therapy (39546), Self-snf management (56683), Patient/Family/Caregiver Education PLAN FOR NEXT VISIT: Flexion based exercise for the lumbar spine and Abdominal strengthening SUBJECTIVE: Patient Reason for Visit: Can feels sore but not as sore as the past. Was sore last week and she was doing a lot of bending and walking. Can get pain in the leg with turning in the bed but that is definitely better. Pt states she feels about 50% Patient Goals: Decrease pain Functional Limitations: working, lifting Prior Level of Function: Independent without limitations Intake Information: Prescription present Previous Treatment: Physical Therapy , Heat , Ice Pain: Pain Pain Level: 8 Pain Location: Low Back/Lumbar Spine - Right Post Treatment Pain Post Treatment Pain Level: 6 Post Treatment Pain Location: Back, Hip - Left, Hip - Right PROMIS Scales Higher is Better 03/04/2023 02/02/2023 Phys Func - Score 38 (moderate dysfunction) 37 (moderate dysfunction) Phys Func - Percentile 12 % 10 % Self-Eff Symptom - Score 45 (Average) 40 (Average) Self-Eff Symptom - Percentile 31 % 16 % T-scores: mean of general population = 50. 5 points is clinically meaningfully difference Percentiles provide an indication of how the patient's score ranks in relation to the general population. Higher percentile rankings indicate better function/quality of life. 50th percentile is the average of the general population and indicates half of respondents had a worse score. OBJECTIVE MEASURES WITH LEVEL OF FUNCTION: Lumbar Spine AROM Lumbar Flexion: Normal, End range pain Lumbar Extension: Minimal limitation, Increased pain (Pinch) Lumbar R Side-Bend: Increased pain, Minimal limitation Lumbar L Side-Bend: Normal Lumbar R Rotation: Peripheralizing, Minimal limitation Lumbar L Rotation: Normal LE AROM R LE AROM: WNL L LE AROM: WNL LE Strength Trunk Strength: Difficulty maintaining PPT with marching in hooklying R Hip Flexion (L2): 4/5 L Hip Flexion (L2): 4/5 TREATMENT: Therapeutic Exercise: 1: All objective measures taken this session 2: Child's pose 2 x 8 reps holding 10 sec each 3: Hooklying PPT with alt january 2 x 10 (VC's for proper performance of PPT with the entire january) Skilled Intervention: Patient was educated in proper exercise technique and purpose for exercises. Correct performance of therapeutic exercises was facilitated with verbal and visual cuing. Billing Therapeutic Exercise Treatment Minutes: 45 Total Treatment Time Minutes (timed/untimed): 45 Johny Flores PT documented in this encounter [facility] 02-15-2023 Miscellaneous Notes Patient's request for medication is as follows: Requested Prescriptions Pending Prescriptions Disp Refills atorvastatin (LIPITOR) 40 mg tablet [Pharmacy Med Name: ATORVASTATIN 40 MG TABLET] 90 tablet 3 Sig: take 1 tablet by mouth once daily Last seen 12/25/2022. Prescription(s) as above. Please process accordingly. Cesia Flores LPN documented in this encounter [facility] 02-15-2023 History of Present illness Narrative Episode Visit Count: 2 Therapist That Will Accept/Oversee The Plan Of Care: Johny Flores Start of Care Date: 02/05/23 Onset Date: 02/06/20 Plan of Care Certification Date: 02/05/23 Next Certification Due Date: 03/12/23 Patient Identified by Name and Date of : Yes REHABILITATION AND SPORTS THERAPY PHYSICAL THERAPY TREATMENT NOTE ASSESSMENT: Martha Venegas tolerated the session with decreased symptoms. She demonstrated difficulty with HS dominance with exercises. The patient will continue to benefit from ongoing skilled physical therapy to progress toward set goals. PLAN FOR NEXT VISIT: Gluite strengthening. SUBJECTIVE: Patient Reason for Visit: Standing and walking at work is a problem. Not sure if the exercises are helping or not. The HEP does not cause pain. Pain into both thighs right now. Pain: Pain Pain Level: 8 Pain Location: Hip - Right, Hip - Left Post Treatment Pain Post Treatment Pain Level: 6 Post Treatment Pain Location: Back, Hip - Left, Hip - Right OBJECTIVE MEASURES WITH LEVEL OF FUNCTION: R Hs cramping with hip ext in prone Min quad tightness bilat PA through L1-L5 does not provoke any familiar pain TREATMENT: Therapeutic Exercise: 1: Standing lumbar ext x 10 2: Prone opp arm leg lift x 10 3: Hooklying bridge strap assist 3 x 10 Skilled Intervention: Patient was educated in proper exercise technique and purpose for exercises. Correct performance of therapeutic exercises was facilitated with verbal cuing. Manual Therapy: 1: ME technique to adjust L posterior rotation x 4 Skilled Intervention: Manual skills to improve joint mobility, ROM, and decrease pain. Utilized anatomy knowledge of the therapist, and assessment of patient's response to intervention. Billing Therapeutic Exercise Treatment Minutes: 40 Manual TherapyTreatment Minutes: 5 Total Treatment Time Minutes (timed/untimed): 45 Johny Flores PT documented in this encounter [facility] 02-06-2023 Miscellaneous Notes Patient would like mailed to her home. Letter placed in mail. Handicap placard printed in [employer]. It has to have an original signature on it, can't be sent electronlcally Will mail it Isabel Davenport MD Please advise. documented in this encounter [facility] 01-29-2023 History of Present illness Narrative Brianda Decker PA-C Department of Orthopaedics Orthopaedics [address] [facility] [address] Dept: [phone] Dept January 29, 2023 CHIEF COMPLAINT: New and Pain of the Right Hip Ms. Martha Venegas is a 52 year old female who presents with pain in her right lower back and lateral aspect of her right hip which radiates to her knee, pain started shortly after she started a new job. She is required to do quite a bit of heavy lifting, pushing and pulling at her new job. Reports that after work she has to crawl out of her car, using ralings to pull herself. Previously she had been off work for sometime after she had a stroke. She is anticoagulated and has only been able to take Tylenol for the pain which is not helpful. She tells me that she has had similar pain in her low back and right hip, she was seeing a physical therapist at her old place of employment, that therapist did some what sounds like manipulations to her leg which she found to be very beneficial. The patient tells me that she has a leg length discrepancy. She denies any locking or catching of the hip, no right groin pain.she is a diabetic, last A1C was 8.7., admits to not taking her all of her medications as it makes her blood sugars too low. ASSESSMENT: M16.11 Primary osteoarthritis of right hip (primary encounter diagnosis) M46.1 Sacroiliitis (HCC) M21.70 Leg length discrepancy PLAN: She has some hip OA and some SI joint pain. Will try a steroid taper and nighttime muscle relaxer. We will have her see PT as planned, may need to be fitted with a shoe lift. Ms. Martha Venegas was advised as to contrast therapies and/or to take analgesics/anti-inflammatories as needed and all contraindications were reviewed. OBJECTIVE: Ms. Martha Venegas is a pleasant 52 year old in no apparent distress. Gen:Ht 5' 4 (1.63m) Wt 210 lb (95.3kg) BMI 36.03 kg/(m^2). nl development, obese, no deformities ENT: Normocephalic, normal hearing, moist mucosa CV: Pulses:DP/PT= 2+ and symmetric, capillary refill < 2 secs, no peripheral edema/varicosities Skin: no rash, bruising or lesions. Good turgor. Psych: cooperative and appropriate, alert and oriented x 3, good mood and affect. Musculoskeletal: HIP EXAM: Right: ROM: Extension: full extension Flexion: 110 degrees Internal Rotation: 30 degrees External Rotation: 35 degrees Abduction: 35 degrees Adduction: 35 degrees Strength: Pain with resisted abduction and Pain with resisted hip flexion Palpation: Tenderness over right greater trochanter and SI joint Log roll: painful. Straight leg raise: Negative Neurovascular Status: Sensation Intact, Moves foot and ankle up & down, and 2+ dorsalis pedis Imaging: * * *Final Report* * * DATE OF EXAM: Jan 29 2023 2:20PM [id number] [id number] - XR HIP 3V PELV+ AP/LAT RT / PROCEDURE REASON: Pain in right hip * * * * Physician Interpretation * * * * EXAM: XR HIP 3V PELV+ AP/LAT RT HISTORY: Pain in right hip Chronic right hip pain that has worsened in the last week. VIEWS: AP and lateral right hip with AP pelvis. COMPARISON: No relevant prior study available FINDINGS: No dislocation or acute fracture. Bilateral coxa profunda. Mild hip joint space narrowing and acetabular spurring bilaterally. Maintained sacroiliac joint spaces. Pelvic phleboliths. IMPRESSION IMPRESSION: Mild arthrosis at both hips. Case Repairer: PSCEsau Transcribe Date/Time: Feb 01 2023 12:01P Dictated by : Cassidy BANG MD This examination was interpreted and the report reviewed and electronically signed by: Cassidy BANG MD on Feb 01 2023 12:03PM EST Supporting Subjective Information Below: Past Surgical History: PAST SURGICAL HISTORY Procedure Laterality Date OOPHORECTOMY PARTIAL/TOTAL UNI/BI 2006 Right PAST SURGICAL HISTORY OF 2007 Excision abdominal mass PAST SURGICAL HISTORY OF 10/14/2008 right foot soft tissue mass excision PAST SURGICAL HISTORY OF 11/03/2010 Left planter fasciotomy PAST SURGICAL HISTORY OF 12/11/2022 PFO VAGINAL HYSTERECTOMY UTERUS 250 GM/< 2006 Hysterectomy, vaginal XTRNL PT ACTIV ECG TRANSMIS W/R&I </30 DAYS 08/15/2019 Medications: Current Outpatient Medications Medication Sig clopidogrel (PLAVIX) 75 mg tablet take 1 tablet by mouth once daily TRUE METRIX GLUCOSE METER Glucose Meter of Choice - Kit - Dx Type 2 DM - Uncontrolled E11.65 losartan (COZAAR) 100 mg tablet Take 1 tablet by mouth once daily. atorvastatin (LIPITOR) 40 mg tablet take 1 tablet by mouth once daily blood sugar diagnostic (BLOOD GLUCOSE TEST) test strip Test blood sugar(s) 2 times daily. Dx: Type 2 DM - Uncontrolled E11.65 Insulin: No Lancets lancets Test blood sugar(s) 2 times daily. Dx: Type 2 DM - Uncontrolled E11.65 Insulin: No metFORMIN (GLUCOPHAGE) 500 mg tablet take 2 tablets by mouth twice a day with meals Miscellaneous Medical Supply 1 Each once daily. levothyroxine (LEVOXYL) 50 mcg tablet Take 1 tablet by mouth once daily. Take on empty stomach. For Thyroid amLODIPine (NORVASC) 10 mg tablet Take 1 tablet by mouth once daily. metoprolol tartrate, short acting, (LOPRESSOR) 25 mg tablet Take 0.5 tablets by mouth twice daily. MULTIVITAMIN ORAL Take by mouth once daily. aspirin, enteric coated (ASPIRIN, ENTERIC COATED) 81 mg EC tablet take 1 tablet by mouth once daily predniSONE (DELTASONE) 10 mg tablet 6 tabs po day 1, then 5 tabs day 2, 4 tabs day 3, 3 tabs day 4, 2 tabs day 5, 1 tab day 6. cyclobenzaprine (FLEXERIL) 10 mg tablet Take 1 tablet by mouth daily at bedtime. Current Facility-Administered Medications Medication Dose Route Frequency perflutren lipid microspheres 1.3 mL in NaCl (PF) 0.9% 10 mL injection (DEFINITY) INTRAVENOUS DIRECTED PRN sodium chloride 0.9 % (flush) 10 mL (BD POSIFLUSH) 10 mL INTRAVENOUS DIRECTED PRN Allergies: Fish Containing Products and Tetanus Vaccines And Toxoid ROS: General (negative for fatigue, malaise, weight loss/gain) HEENT (negative for headache, earache, recent vision changes, sinus pain, sore throat) Respiratory (no recent shortness of breath, hemoptysis) CV (negative for chest tightness, palpitations) Musculoskeletal (see HPI) Psych (no depression, anxiety) This note was partially generated using Path voice recognition system, and there may be some incorrect words, spellings, and punctuation that were not noted in checking the note before saving. 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 Her pain is in her upper thigh and deep into her buttock as well. Works at [employer]. 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 Taking Tylenol for the pain like candy and does not help. She did have a Tramadol she found at home and did not help either. X-rays done today. documented in this encounter [facility] 01-05-2023 Miscellaneous Notes January 08, 2023 PID: [id number] Martha Venegas [address] [place] [address] Dear Ms. Venegas, We are pleased to inform you that the results of your recent breast imaging exam on 01/05/2023 are normal. Early detection of cancer is very important. We also understand recommendations regarding breast cancer screening are controversial. Please discuss with your primary care provider which strategy is best for you and whether a mammogram is right for you. Your imaging studies and report will be kept on file at [facility] as part of your permanent medical record and are available for your continuing care. Thank you for allowing us to help in meeting your health care needs. Sincerely, Dr. Figueroa Interpreting Radiologist [facility] (Normal over 40) documented in this encounter [facility] 01-03-2023 Miscellaneous Notes Letter has been written sent through Pretty Daniels January 03, 2023 8:06 AM documented in this encounter [facility] 01-01-2023 Miscellaneous Notes Patient called because said see's many appointments and testing in her chart. Asked about Dr. Duffy apointment and why was scheduled. I said could be a referral and could transfer her to scheduling. She decided to call Dr. Camarillo office to speak with them. Bessie documented in this encounter [facility] 12-26-2022 Miscellaneous Notes Hi Ms. Venegas, We can write a return to work letter for you! Do you feel like you can go back to full duty on the December? Or do you feel restrictions are needed for two more weeks of not lifting anything greater than 10-20 pounds? Please let me know, and where we can send the letter to. KELLEN Guevara Called patient and spoke with patient she states she is having pain on the right side describes it is being achy her pain today is 10, and if she could please get a call back Pretty Daniels December 26, 2022 11:19 AM documented in this encounter [facility] 12-25-2022 History of Present illness Narrative HISTORY OF PRESENT ILLNESS: Ms. Venegas is a 52 year old female with a history of obesity, hypertension, hyperlipidemia, diabetes and CVA in 01/21 who presents to cardiology clinic for routine follow-up. Patient reports that in January 2019, she started having facial episodes of confusion where she would get lost while at work or while driving around town. 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 She was found to have hemianopsia and was taken to the ER for further evaluation. She did have an MRI and MRA of the brain revealing scattered areas of acute infarct in the right occipital lobe with an occluded right BOTTOM PAINTER. She was admitted to [facility] for further evaluation. Of note, prior to her hospitalization, her diabetes was not optimally controlled as her hemoglobin A1c was 10, her blood pressures were suboptimal ranging in the 150s/90s-100s, and her lipids were not optimally controlled and she was not on statin therapy. During her hospitalization, her medications were adjusted with improved blood sugar and blood pressure control. She did have a TTE and a LB performed revealing normal LV systolic function without evidence of intracardiac thrombus or masses but with evidence of a PFO. Since her hospitalization, she did wear an event monitor revealing no evidence of arrhythmias. She has since undergone a loop recorder implantation in 08/23 which has not revealed any evidence of atrial arrhythmias. Since her last clinic visit, patient was referred to [facility] for PFO closure. She did undergo attempted procedure on 12/11/2022 but was not found to have any evidence of intracardiac shunting. Postprocedure, patient reports she had significant bleeding in both of her groin sites. They did have to hold pressure for quite some time. Since then, she has continued to have tenderness and soreness at the sites but reports they are gradually healing. She initially did notice significant lump at her groin sites which has slowly decreased in size. She otherwise denies any current bleeding or drainage from the sites or any neurological symptoms in her lower extremities. She has been gradually building up her endurance but reports she does get soreness in her groin sites after walking for more than 5 to 10 minutes at a time. She has been off of work the last couple weeks as a result of her procedure. 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 From a cardiac standpoint, patient otherwise reports continue to do well. She denies any complaints of chest pain, dyspnea on exertion, orthopnea, paroxysmal nocturnal dyspnea, lower extremity edema, presyncope, syncope, or palpitations. She continues to have mild deficits from her stroke including mild peripheral vision loss and some memory issues. Otherwise, she does check her blood pressures at home and reports they are well controlled in the 110-120/70s. She has been taking her statin therapy as well. She has restarted walking on the treadmill for 5 to 10 minutes at a time since her recent procedure. PAST MEDICAL HISTORY Diagnosis Date Asthma Seasonal, uses Albuterol once a month Diabetes mellitus (HCC) Family history of sleep apnea History of stroke Hypertension Mixed hyperlipidemia PFO (patent foramen ovale) Status post placement of implantable loop recorder Stroke (cerebrum) (HCC) TMJ arthritis PAST SURGICAL HISTORY Procedure Laterality Date OOPHORECTOMY PARTIAL/TOTAL UNI/BI 2006 Right PAST SURGICAL HISTORY OF 2007 Excision abdominal mass PAST SURGICAL HISTORY OF 10/14/2008 right foot soft tissue mass excision PAST SURGICAL HISTORY OF 11/03/10 Left planter fasciotomy VAGINAL HYSTERECTOMY UTERUS 250 GM/< 2006 Hysterectomy, vaginal XTRNL PT ACTIV ECG TRANSMIS W/R&I </30 DAYS 08/15/2019 MEDICATIONS: losartan (COZAAR) 100 mg tablet^Take 1 tablet by mouth once daily.^Disp: 90 tablet^Rfl: 3 atorvastatin (LIPITOR) 40 mg tablet^take 1 tablet by mouth once daily^Disp: 90 tablet^Rfl: 0 blood sugar diagnostic (BLOOD GLUCOSE TEST) test strip^Test blood sugar(s) 2 times daily. Dx: Type 2 DM - Uncontrolled E11.65 Insulin: No^Disp: 100 Strip^Rfl: 5 Lancets lancets^Test blood sugar(s) 2 times daily. Dx: Type 2 DM - Uncontrolled E11.65 Insulin: No^Disp: 100 Each^Rfl: 11 metFORMIN (GLUCOPHAGE) 500 mg tablet^take 2 tablets by mouth twice a day with meals^Disp: 120 tablet^Rfl: 5 Miscellaneous Medical Supply^1 Each once daily.^Disp: 1 Each^Rfl: 0 levothyroxine (LEVOXYL) 50 mcg tablet^Take 1 tablet by mouth once daily. Take on empty stomach. For Thyroid^Disp: 30 tablet^Rfl: 11 amLODIPine (NORVASC) 10 mg tablet^Take 1 tablet by mouth once daily.^Disp: 90 tablet^Rfl: 2 metoprolol tartrate, short acting, (LOPRESSOR) 25 mg tablet^Take 0.5 tablets by mouth twice daily.^Disp: 90 tablet^Rfl: 3 clopidogrel (PLAVIX) 75 mg tablet^take 1 tablet by mouth once daily^Disp: 90 tablet^Rfl: 3 MULTIVITAMIN ORAL^Take by mouth once daily.^Disp: ^Rfl: aspirin, enteric coated (ASPIRIN, ENTERIC COATED) 81 mg EC tablet^take 1 tablet by mouth once daily^Disp: 100 tablet^Rfl: 3 ALLERGIES Allergen Reactions Fish Containing Pro* Hives, Swelling Tetanus Vaccines An* Local Reaction SOCIAL HISTORY: Social History Tobacco Use Smoking status: Never Smokeless tobacco: Never Vaping Use Vaping Use: Never used Substance Use Topics Alcohol use: Yes Comment: rare Drug use: No FAMILY HISTORY Problem Relation Age of Onset Diabetes Mother Diabetes Maternal Grandmother Diabetes Paternal Grandmother other (attention deficit) Son Diabetes Maternal Uncle other (no cardiac hx per pt) Other REVIEW OF SYSTEMS: GENERAL: Negative for: Fever, Chills, or Night sweats RESPIRATORY: Negative for: Cough, Blood in Sputum, Shortness of breath, Wheezing CARDIAC: Negative history of chest pain on exertion, dyspnea on exertion, orthopnea, paroxysmal nocturnal dyspnea, lower extremity edema, presyncope, syncope, or palpitations MUSCULOSKELETAL: Negative for: Muscle or joint pain, Joint swelling OTHER: The rest of the review of systems is unremarkable and negative or non-contributory I have confirmed and edited as necessary, the [facility] and [facility] PHYSICAL EXAMINATION: BP 146/100 Pulse 72 Resp 18 Ht 5' 4 (1.63m) Wt 210 lb (95.3kg) SpO2 98% BMI 36.03 kg/(m^2). General appearance: Pleasant female, alert, appears to be in no acute distress, cooperative Head: Normocephalic, atraumatic HEENT: Extraocular movements intact; Lungs: CTAB; no rales, rhonchi, or wheezes Heart: RRR; normal S1/S2; no murmurs/gallops/rubs Extremities: No lower extremity edema bilaterally; bilateral groin sites w/ mild induration but no oozing/bleeding; pulses intact in lower extremities bilaterally Neurologic: Grossly nonfocal Psych: Normal mood/affect CARDIAC TESTING: EKG: EKG, 01/16/19: Normal sinus rhythm. Minimal voltage criteria for left ventricular hypertrophy. 30 day event monitor, 03/21-04/21/19: Sinus rhythm throughout with heart rates ranging from 59-97 bpm. No PACs or PVCs noted. Echocardiogram: OSH TTE, 01/17/19: Normal LV systolic function with ejection fraction 70%. Normal diastolic function. No significant valve disease. OSH LB, 01/20/19: Normal LV systolic function with ejection fraction 55%. Redundant noncoronary cusp with mild aortic insufficiency. Small atrial septal aneurysm noted with evidence of PFO with [id number] shunting by color Doppler and right to left shunting with agitated saline contrast. I have personally reviewed the Electrocardiogram and reports of prior echocardiograms as per above. I also reviewed records of patient's hospitalization at [facility] in 01/21 in [facility]. ASSESSMENT: Ms. Venegas is a 52 year old female with a history of obesity, hypertension, hyperlipidemia, diabetes and CVA in 01/21 who presents to cardiology clinic for routine follow-up. PLAN AND RECOMMENDATIONS: 1. CVA, suspected embolic in etiology: Patient with CVA back in 03/23 which was suspected to be embolic in etiology. She did have several potential etiologies for her CVA including prior uncontrolled hypertension, hyperlipidemia, and diabetes. To ensure no evidence of atrial arrhythmias, she has had a loop recorder implanted which has not revealed any evidence of atrial arrhythmias in the last several years. As her OSH TTE/LB did reveal evidence of PFO, she did undergo attempted PFO closure on 12/11/22 revealing no evidence of PFO or intracardiac shunt. As a result, she is undergoing hypercoagulable work-up for further evaluation of her recurrent CVA and I have given her a referral to hematology in this regards. Otherwise, currently she remains on therapy with ASA, lipitor, and plavix. Patient did express significant frustration in regards to lack of communication after recent procedure. She was not aware that she did not have a PFO and it was not closed with her recent procedure. In addition, she has had significant pain in her groin sites over the last couple weeks which has gradually been improving over time. I did check both of her groin sites revealing well-healing sites with mild induration and otherwise preserved distal pulses. She is not yet ready to return to work as she continues to have pain and soreness in her bilateral groin after walking a few minutes and does not believe she will be able to lift 30 to 60 pounds while at work. I did recommend she follow-up with her interventionalist for further evaluation and clearance to return to work. 2. Hypertension: Patient's blood pressure is well controlled on her current antihypertensive regimen based on her home blood pressure readings. 3. Hyperlipidemia: Patient continues on high intensity statin therapy with Lipitor. Patient's lipids are well controlled with last LDL 79 in November 2022. Some elements of A&P were copied from note from 06/14/2022, which have been updated where appropriate, and all reflect current medical decision making from today (December 25, 2022). I spent a total of 39 minutes on the date of the service which included preparing to see the patient, [id number] patient care, completing clinical documentation, obtaining and/or reviewing separately obtained history, performing a medically appropriate examination, and counseling and educating the patient/family/caregiver. Merari Camarillo MD documented in this encounter [facility] 12-25-2022 Nurse Note Patient has no cardiac complaints today. Mckenzie Flores CMA documented in this encounter [facility] 12-20-2022 Miscellaneous Notes Called patient: She states she is still sore on both groin sites since intervention. She states she is still having some bloody discharge more on the R>L. She states it is still red but slight yellow like, but since then has cleared up. 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 I did recommend she see someone locally (urgent care, PCP, trick rodeo rider) for a site check. Patient states right now it has cleared up so she will have the site checked on Sunday at her local trick rodeo rider. We discussed if symptoms worsen (chest pain, N/T in legs, bleeding from the site, discharge from the site, signs of infection) patient needs to be seen at her local urgent care or ED. \ Patient states she will let us know if she needs a return to work letter, but her trick rodeo rider might be able to do it. Patient verbalized understanding and agrees with plan of care. Paola Milian RN documented in this encounter [facility] 12-10-2022 Miscellaneous Notes CARDIOVASCULAR LAB INSTRUCTIONS: Readiness to Learn: Cognitive Ability: Alert and oriented Motivation To Learn: Interested Family/Significant Other Support: Unable to assess - Family not present Instruction Provided To: Patient Patient Learns Best By: Individual Instruction Factors Affecting Learning: None Physical Limitations Affecting Learning: None Learning Response: Procedure: PFO Pre procedure education topics: Arrival time/NPO Status/Medications/Travel Instructions/Restrictions- driving restrictions Patient/Family Response Evaluation: Verbalizes understanding Follow Up Plan and Medication: As directed by physician Instruction/Supplemental Material Given: Cardiac catheterization instructions, procedure information, hospital information, hotel information. Instructed By Marci Page RN, RN. In Department of CARDIOLOGY. documented in this encounter [facility] 11-20-2022 History of Present illness Narrative Chief Complaint Patient presents with: Follow Up: Diabetes right hip pain. HPI Martha Venegas is a 52 year old female who presents here today for a follow up regarding DM and R hip pain. R Hip pain Pt notes overcompensating on her left side due to the pain on her R hip. Pt reports attending PT in the past. DM Type 2 Pt denies numbness in her feet. Social history: - Recently started a new job Previously worked for [employer], now [employer]. Past medical history, appointments, medications, allergies reviewed. Previous Medical History PAST MEDICAL HISTORY Diagnosis Date Asthma Seasonal, uses Albuterol once a month Diabetes mellitus (HCC) Family history of sleep apnea History of stroke Hypertension Mixed hyperlipidemia PFO (patent foramen ovale) Stroke (cerebrum) (HCC) TMJ arthritis Previous Surgical History PAST SURGICAL HISTORY Procedure Laterality Date OOPHORECTOMY PARTIAL/TOTAL UNI/BI 2007 Right PAST SURGICAL HISTORY OF 2007 Excision abdominal mass PAST SURGICAL HISTORY OF 10/14/2008 right foot soft tissue mass excision PAST SURGICAL HISTORY OF 11/03/10 Left planter fasciotomy VAGINAL HYSTERECTOMY UTERUS 250 GM/< 2006 Hysterectomy, vaginal XTRNL PT ACTIV ECG TRANSMIS W/R&I </30 DAYS 08/15/2019 Family History FAMILY HISTORY Problem Relation Age of Onset Diabetes Mother Diabetes Maternal Grandmother Diabetes Paternal Grandmother other (attention deficit) Son Diabetes Maternal Uncle other (no cardiac hx per pt) Other Patient Allergies ALLERGIES Allergen Reactions Fish Containing Pro* Hives, Swelling Tetanus Vaccines An* Local Reaction Current Medications Current Outpatient Medications on File Prior to Visit Medication Sig atorvastatin (LIPITOR) 40 mg tablet take 1 tablet by mouth once daily blood sugar diagnostic (BLOOD GLUCOSE TEST) test strip Test blood sugar(s) 2 times daily. Dx: Type 2 DM - Uncontrolled E11.65 Insulin: No Lancets lancets Test blood sugar(s) 2 times daily. Dx: Type 2 DM - Uncontrolled E11.65 Insulin: No metFORMIN (GLUCOPHAGE) 500 mg tablet take 2 tablets by mouth twice a day with meals Miscellaneous Medical Supply 1 Each once daily. levothyroxine (LEVOXYL) 50 mcg tablet Take 1 tablet by mouth once daily. Take on empty stomach. For Thyroid (Patient not taking: Reported on 11/14/2022) amLODIPine (NORVASC) 10 mg tablet Take 1 tablet by mouth once daily. losartan (COZAAR) 50 mg tablet Take 1 tablet by mouth once daily. metoprolol tartrate, short acting, (LOPRESSOR) 25 mg tablet Take 0.5 tablets by mouth twice daily. clopidogrel (PLAVIX) 75 mg tablet take 1 tablet by mouth once daily MULTIVITAMIN ORAL Take by mouth once daily. aspirin, enteric coated (ASPIRIN, ENTERIC COATED) 81 mg EC tablet take 1 tablet by mouth once daily Current Facility-Administered Medications on File Prior to Visit Medication perflutren lipid microspheres 1.3 mL in NaCl (PF) 0.9% 10 mL injection (DEFINITY) sodium chloride 0.9 % (flush) 10 mL (BD POSIFLUSH) Social History Social History Tobacco Use Smoking status: Never Smokeless tobacco: Never Vaping Use Vaping Use: Never used Substance Use Topics Alcohol use: Yes Comment: rare Drug use: No Review of Symptoms REVIEW OF SYSTEMS PAIN ASSESSMENT: Negative for pain, history of chronic pain, or current treatment for a chronic pain condition. GENERAL: No weight loss, malaise or fevers HEENT: Negative for frequent or significant headaches, No changes in hearing or vision, no nose bleeds or other nasal problems MUSCULOSKELETAL: +R hip pain PHYSICAL EXAMINATION BP 150/80 Pulse 78 Ht 166 cm (5' 5.35) Wt 94.3 kg (208 lb) BMI 34.24 kg/m General: Alert and oriented, no distress, pleasant and cooperative. Heart: Regular, normal S1 and S2, no murmurs, rubs, or gallops Lungs: Clear to auscultation bilaterally Abdomen: Benign Extremities: Feet/ankles without edema, posterior tibial pulses full and symmetrical Health Maintenance List HEPATITIS B(1 of 3 - 3-dose series) Never done PNEUMOCOCCAL(1 - PCV) Never done SPIROMETRY Never done HIV SCREENING Never done COLORECTAL CANCER SCREENING Never done SHINGRIX VACCINE(1 of 2) Never done MAMMOGRAM due on 03/19/2019 INFLUENZA(1) due on 07/06/2022 COVID-19 VACCINE(3 - Booster for Pfizer series) due on 11/04/2022 DTAP,TDAP,TD(2 - Td or Tdap) due on 06/28/2023 HBA1C due on 02/12/2023 URINE ALBUMIN:CREATININE RATIO due on 06/26/2023 DIABETIC FOOT EXAM due on 06/28/2023 ANNUAL PCP TEAM CHRONIC DISEASE VISIT due on 06/28/2023 DILATED RETINAL EXAM due on 07/12/2023 BP CONTROLLED (<130/80) due on 09/05/2023 LDL CHOLESTEROL due on 11/14/2023 HEPATITIS C SCREENING Completed PAP TESTING Discontinued HPV TESTING Discontinued Data reviewed Component Latest Ref Rng & Units 07/13/2015 11/14/2022 WBC 3.70 - 11.00 k/uL 8.80 RBC 3.90 - 5.20 m/uL 4.78 Hemoglobin 11.5 - 15.5 g/dL 12.2 Hematocrit 36.0 - 46.0 % 39.3 MCV 80.0 - 100.0 fL 82.2 MCH 26.0 - 34.0 pg 25.5 (L) MCHC 30.5 - 36.0 g/dL 31.0 RDW-CV 11.5 - 15.0 % 15.1 (H) Platelet Count 150 - 400 k/uL 327 MPV 9.0 - 12.7 fL 10.8 Neut% % 50.6 Abs Neut (ANC) 1.45 - 7.50 k/uL 4.45 Lymph% % 39.4 Abs Lymph 1.00 - 4.00 k/uL 3.47 [place]% % 7.3 Abs [place] <0.87 k/uL 0.64 Eosin% % 2.2 Abs Eosin <0.46 k/uL 0.19 Baso% % 0.2 Abs Baso <0.11 k/uL <0.03 Immature Gran % % 0.3 IMMATURE GRANS (ABS) <0.10 k/uL 0.03 NRBC /100 WBC 0.0 Absolute nRBC <0.01 k/uL <0.01 DTYPE Auto Protein, Total 6.3 - 8.0 g/dL 7.1 Albumin 3.9 - 4.9 g/dL 4.2 Calcium 8.5 - 10.2 mg/dL 9.1 9.6 Bilirubin, Total 0.2 - 1.3 mg/dL 0.4 Alkaline Phosphatase 34 - 123 U/L 82 AST 13 - 35 U/L 19 ALT 7 - 38 U/L 19 Glucose 74 - 99 mg/dL 101 (H) 166 (H) BUN 7 - 21 mg/dL 12 12 Creatinine 0.58 - 0.96 mg/dL 0.90 0.73 Sodium 136 - 144 mmol/L 141 140 Potassium 3.7 - 5.1 mmol/L 4.2 4.2 Chloride 97 - 105 mmol/L 99 103 CO2 22 - 30 mmol/L 28 27 Anion Gap 9 - 18 mmol/L 14 10 eGFR >=60 mL/min/1.73m 98 eGFR- >60 eGFR-All Other Races . >60 Cholesterol, Total <200 mg/dL 150 Triglyceride <150 mg/dL 116 HDL Cholesterol >39 mg/dL 48 Non HDL Cholesterol <130 mg/dL 102 Fasting Time hrs 12 VLDL Cholesterol <30 mg/dL 23 TC:HDL Ratio <5.10 3.13 LDL Cholesterol <100 mg/dL 79 LDL:HDL Ratio <2.54 1.65 Hemoglobin A1C 4.3 - 5.6 % 8.7 (H) Estimated Average Glucose mg/dL 203 TSH 0.270 - 4.200 mIU/L 1.610 (I10) Essential hypertension (primary encounter diagnosis) Comment: BP: 150/80 Plan: increase Losartan dosage (E11.9) Type 2 diabetes mellitus without complication, without long-term current use of insulin (HCC) Comment: Pt denies numbness in her feet Plan: continue to monitor (Q21.12) PFO (patent foramen ovale) Comment: due for surgery Plan: follow up (E03.9) Acquired hypothyroidism Comment: TSH: 1.6 Plan: Continue on levothyroxine 50 mcg (Z86.73) History of stroke (I63.9) Occipital stroke (HCC) (H54.7) Visual impairment Comment: took place on 01/2019, ongoing issues. Plan: Discussed controlling BP (M21.70) Leg length discrepancy Comment: chronic issue with this recurring though responsds to PT> Plan: CONSULT TO PHYSICAL THERAPY By signing my name below, I, Frances Banuelos, attest that this documentation has been prepared under the direction and in the presence of Jaspreet Davenport M.D. Electronically Signed: Antwon Sanz. November 20, 2022 11:40 AM Provider Attestation: I, Isabel Davenport MD, personally performed the services described in this documentation. All medical record entries made by the scribe were at my direction and in my presence. I have reviewed the chart and discharge instructions (if applicable) and agree that the record reflects my personal performance and is accurate and complete. Electronically Signed: Isabel Davenport MD November 20, 2022 4:19 PM documented in this encounter [facility] 11-15-2022 Miscellaneous Notes Patient's request for medication is as follows: Requested Prescriptions Pending Prescriptions Disp Refills atorvastatin (LIPITOR) 40 mg tablet [Pharmacy Med Name: ATORVASTATIN 40 MG TABLET] 90 tablet 0 Sig: take 1 tablet by mouth once daily Pt last seen 07/21/22. On recall list. Message sent to clerical to make the appt. Prescription(s) as above. Please process accordingly. Rosalinda Colorado LPN documented in this encounter [facility] 11-13-2022 Miscellaneous Notes 1st attempt. Left patient VM to schedule. Prescriptions sent. Patient is overdue for an office visit for diabetes management, please schedule LETHA with either provider. Also due for fasting labs, can get these done at her office visit if she'd like, or I can place orders to get done ahead of time, whichever she prefers. Vadim Lau APRN.SRAVANTHI Patient is asking for a new glucose meter and supplies to be sent to [facility]. Patient has no preference. She said what ever insurance will pay for. documented in this encounter [facility] 10-24-2022 Miscellaneous Notes The following approved medication requests have been transmitted electronically. Requested Prescriptions Signed Prescriptions Disp Refills metFORMIN (GLUCOPHAGE) 500 mg tablet 120 tablet 5 Sig: take 2 tablets by mouth twice a day with meals Authorizing Provider: ISABEL DAVENPORT MD Last appointment: 06-28-22 Next appointment: na Pharmacy verified in Epic. Refill(s) requested: Requested Prescriptions Pending Prescriptions Disp Refills metFORMIN (GLUCOPHAGE) 500 mg tablet [Pharmacy Med Name: METFORMIN HCL 500 MG TABLET] 120 tablet Sig: take 2 tablets by mouth twice a day with meals Order(s) pended. Please advise. Carmelita Hardwick MA, LOT [employer] documented in this encounter [facility] 10-23-2022 Miscellaneous Notes Received ED summary, labs, EKG, chest xray for dizziness from [facility]. Placed in provider's inbox for review. Route to JONO sánchez documented in this encounter [facility] 09-05-2022 Instructions Jaspreet Acuña APRN.SRAVANTHI - 09/05/2022 6:31 PM EDT How to Manage Common Symptoms Associated with COVID for Adults Fever- Fever is a temperature over 100.4 F and can occur when the body is fighting an infection. To help treat a fever: Drink plenty of fluids and stay well hydrated. Eat small amounts of easy to digest food. Rest. Your body needs rest to recover, but getting up and moving around the house frequently is a good idea. You should try to continue doing your normal daily activities (bathing, toileting, grooming, cooking), though you will probably feel tired, and need to rest often. Avoid any heavy activity or exercise, as this will increase your body temperature. Dress in light clothing and stay covered in a light sheet. Keep the room temperature cool. Take a slightly warm (not cold or cool) bath, or apply damp washcloths to the forehead and wrists. Cough- Cough is a common symptom associated with COVID and can be bothersome. To help treat a cough: Stay well hydrated. Try warm water or tea with lemon and/or honey to help soothe the cough. Use a humidifier to add moisture to the air. Try a product with menthol, like a cough drop or a rub for your chest such as Vicks, which can help reduce cough. Try cough drops. Avoid smoking and other strong odors or perfumes. Try breathing exercises to keep your lungs open and clear. Take a big deep breath through your nose and hold for 5 seconds before slowly releasing. Repeat frequently, while you are awake. Congestion- Runny nose or nasal congestion can occur with COVID. Treatment can help relieve symptoms: Try OTC nasal saline spray, or nasal saline rinse to relieve mucus congestion. Nasal strips can help keep nasal passages open, to increase airflow. Elevating your head with an extra pillow in bed can help reduce congestion. Using a humidifier can increase moisture in the air, and make breathing easier. Sore Throat- Another common symptom with COVID, can be managed at home by: Stay well hydrated. Gargle with salt water - mix teaspoon salt with 1 cup of warm water and gargle. This helps to loosen mucus in the back of the throat and may reduce discomfort. Try ice chips, popsicles or lozenges to soothe the throat. Nausea/Vomiting/Diarrhea- These are common symptoms, and staying hydrated is most important. If you are nauseous or vomiting, start with small sips of water every 10-15 minutes and increase as tolerated. You can try sucking an ice cube too. If tolerating, you can try pedialyte or Gatorade, or flat sprite or diamond-elizabeth. Start slowly and increase as you are able to. Instead of meals, try smaller, more frequent snacks. Try eating bland foods like crackers, toast, rice, and applesauce. Avoid spicy, greasy or fried foods and dairy containing foods. Even if you aren't feeling hungry due to lack of smell or taste, it is important to try to take in some food when you are able. After drinking and eating, rest in an upright position for up to two hours as needed to help decrease nauseous feelings. Try closing your eyes, avoid moving and watching TV. Avoid strong odors that can make you feel more nauseated. When to seek emergency medical attention Look for emergency warning signs for COVID-19. If having any of these symptoms, seek emergency medical care immediately: Trouble breathing Persistent pain or pressure in the chest New confusion Inability to wake or stay awake Bluish lips or face *This list is not all possible symptoms. Please call your medical provider for any other symptoms that are severe or concerning to you. documented in this encounter [facility] 09-05-2022 History of Present illness Narrative Subjective HPI Nontoxic-appearing female presents urgent care chief complaint flulike symptoms. Duration of symptoms 6 days. Associated symptoms cough sore throat nasal drainage ear pain shortness of breath with coughing. Patient states she did have body aches and chills and fevers first few days of illness this is some subsided. States has been around ill people with similar signs symptoms. No positive COVID-19 exposures. 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 She did receive COVID-19 vaccine. She has not had COVID-19 in last 90 days. Has not use any OTC medications today. She was able to go to work today. Denies any fever body aches chills productive cough chest pain shortness of breath pleuritic pain hemoptysis quality swallowing difficulty handling secretions decreased range of motion of neck nausea vomiting abdominal pain change in bowel or bladder habits. Past medical history prescription medication use and allergies reviewed. .Patient presents with: Cough: drainage, sore throat, ear pain and sob x 6 days PAST MEDICAL HISTORY Diagnosis Date Asthma Seasonal, uses Albuterol once a month Diabetes mellitus (HCC) Family history of sleep apnea History of stroke Hypertension Mixed hyperlipidemia PFO (patent foramen ovale) Stroke (cerebrum) (HCC) TMJ arthritis PAST SURGICAL HISTORY Procedure Laterality Date OOPHORECTOMY PARTIAL/TOTAL UNI/BI 2006 Right PAST SURGICAL HISTORY OF 2007 Excision abdominal mass PAST SURGICAL HISTORY OF 10/14/2008 right foot soft tissue mass excision PAST SURGICAL HISTORY OF 11/03/10 Left planter fasciotomy VAGINAL HYSTERECTOMY UTERUS 250 GM/< 2006 Hysterectomy, vaginal XTRNL PT ACTIV ECG TRANSMIS W/R&I </30 DAYS 08/15/2019 ALLERGIES Fish Containing Products and Tetanus Vaccines And Toxoid MEDICATIONS Miscellaneous Medical Supply^1 Each once daily.^Disp: 1 Each^Rfl: 0 levothyroxine (LEVOXYL) 50 mcg tablet^Take 1 tablet by mouth once daily. Take on empty stomach. For Thyroid^Disp: 30 tablet^Rfl: 11 metFORMIN (GLUCOPHAGE) 500 mg tablet^Take 2 tablets by mouth daily with breakfast.^Disp: ^Rfl: amLODIPine (NORVASC) 10 mg tablet^Take 1 tablet by mouth once daily.^Disp: 90 tablet^Rfl: 2 losartan (COZAAR) 50 mg tablet^Take 1 tablet by mouth once daily.^Disp: 180 tablet^Rfl: 2 metoprolol tartrate, short acting, (LOPRESSOR) 25 mg tablet^Take 0.5 tablets by mouth twice daily.^Disp: 90 tablet^Rfl: 3 clopidogrel (PLAVIX) 75 mg tablet^take 1 tablet by mouth once daily^Disp: 90 tablet^Rfl: 3 MULTIVITAMIN ORAL^Take by mouth once daily.^Disp: ^Rfl: atorvastatin (LIPITOR) 40 mg tablet^Take 1 tablet by mouth once daily.^Disp: 90 tablet^Rfl: 3 aspirin, enteric coated (ASPIRIN, ENTERIC COATED) 81 mg EC tablet^take 1 tablet by mouth once daily^Disp: 100 tablet^Rfl: 3 FAMILY HISTORY Problem Relation Age of Onset Diabetes Mother Diabetes Maternal Grandmother Diabetes Paternal Grandmother other (attention deficit) Son Diabetes Maternal Uncle other (no cardiac hx per pt) Other Social History Tobacco Use Smoking status: Never Smokeless tobacco: Never Vaping Use Vaping Use: Never used Substance Use Topics Alcohol use: Yes Comment: rare Drug use: No BP 124/80 Pulse 98 Temp 36.9 C (98.4 F) Resp 16 Wt 94.3 kg (208 lb) SpO2 98% BMI 35.70 kg/m Review of Systems Constitutional: Positive for malaise/fatigue. Negative for chills and fever. HENT: Positive for congestion, ear pain and sore throat. Negative for ear discharge and sinus pain. Eyes: Negative for blurred vision, pain, discharge and redness. Respiratory: Positive for cough. Negative for hemoptysis, sputum production, shortness of breath, wheezing and stridor. Cardiovascular: Negative for chest pain. Gastrointestinal: Negative for abdominal pain, diarrhea, nausea and vomiting. Musculoskeletal: Positive for myalgias. Skin: Negative for itching and rash. Neurological: Positive for headaches. Negative for dizziness. Objective Physical Exam Constitutional: General: She is not in acute distress. Appearance: She is not diaphoretic. HENT: Head: Normocephalic. Jaw: No trismus or tenderness. Right Ear: Tympanic membrane, ear canal and external ear normal. Left Ear: Tympanic membrane, ear canal and external ear normal. Nose: Congestion present. Right Sinus: Maxillary sinus tenderness present. Left Sinus: Maxillary sinus tenderness present. Mouth/Throat: Lips: [place]. Mouth: Mucous membranes are moist. Pharynx: Oropharynx is clear. Uvula midline. No pharyngeal swelling, oropharyngeal exudate, posterior oropharyngeal erythema or uvula swelling. Eyes: Conjunctiva/sclera: Conjunctivae normal. Pupils: Pupils are equal, round, and reactive to light. Cardiovascular: Rate and Rhythm: Normal rate and regular rhythm. Heart sounds: Normal heart sounds. Pulmonary: Effort: Pulmonary effort is normal. No tachypnea, accessory muscle usage or respiratory distress. Breath sounds: Normal breath sounds. No stridor. No wheezing, rhonchi or rales. Abdominal: Palpations: Abdomen is soft. Tenderness: There is no abdominal tenderness. Musculoskeletal: Cervical back: Normal range of motion and neck supple. No rigidity or tenderness. No pain with movement. Normal range of motion. Lymphadenopathy: Cervical: No cervical adenopathy. Skin: General: Skin is warm and dry. Neurological: Mental Status: She is alert and oriented to person, place, and time. ASSESSMENT/PLAN: 1. Suspected COVID-19 virus infection - ICD9: V01.79, ICD10: Z20.822 (primary diagnosis) - COVID WITH FLUA+B, ROUTINE 2. Acute maxillary sinusitis, recurrence not specified - ICD9: 461.0, ICD10: J01.00 COVID-19 influenza test negative. Duration of symptoms symptoms of double sickening will be placed on Augmentin. Amena Velazco called in. Follow-up with PCP symptoms or not improving next 2 to 3 days. Patient was educated on supportive therapies. Patient was instructed to immediately proceed to emergency room for any new, worsening, or symptoms lasting longer than anticipated. The patient's clinical presentation is otherwise unremarkable at this time. Based on exam and clinical finding, the patient is stable for discharge. Plan of care was discussed with patient. Patient verbalizes understanding and agrees to plan of care. This note was generated using Path software. It may contain errors in wording, punctuation, or spelling. Jaspreet Acuña APRN.[employer] documented in this encounter [facility] 07-21-2022 Nurse Note Patient denies any cardiac complaints or symptoms. documented in this encounter [facility] 07-21-2022 History of Present illness Narrative Chief Complaint: Patient presents with: Cardiology Follow Up : PFO closure radhames Thomas Princess Venegas is a 52 year old female with a known past medical history of hypertension, hyperlipidemia, type 2 diabetes, CVA in 01/2019, obesity who presents for evaluation of patent foramen ovale. Since her hospitalization, she did wear an event monitor revealing no evidence of arrhythmias. She has since undergone a loop recorder implantation in 08/23 which has not revealed any evidence of atrial arrhythmias. She had an MRI, and an MRA of the brain and neck which showed a right occipital infarct, and no evidence for atherosclerotic disease in the major vessels in the neck. Transthoracic echocardiogram showed no right to left shunt, but a LB showed a patent foramen ovale. She continues to deny any chest pain or pressure and denies any dyspnea, orthopnea, paroxysmal nocturnal dyspnea, syncope or presyncope denies any palpitations or leg swelling. She states that she has permanent vision loss especially in her peripheral vision since this day. She is currently on aspirin and Plavix. PAST MEDICAL HISTORY Diagnosis Date Asthma Seasonal, uses Albuterol once a month Diabetes mellitus (HCC) Family history of sleep apnea History of stroke Hypertension Mixed hyperlipidemia PFO (patent foramen ovale) Stroke (cerebrum) (HCC) TMJ arthritis PAST SURGICAL HISTORY Procedure Laterality Date OOPHORECTOMY PARTIAL/TOTAL UNI/BI 2006 Right PAST SURGICAL HISTORY OF 2007 Excision abdominal mass PAST SURGICAL HISTORY OF 10/14/2008 right foot soft tissue mass excision PAST SURGICAL HISTORY OF 11/03/10 Left planter fasciotomy VAGINAL HYSTERECTOMY UTERUS 250 GM/< 2006 Hysterectomy, vaginal XTRNL PT ACTIV ECG TRANSMIS W/R&I </30 DAYS 08/15/2019 FAMILY HISTORY Problem Relation Age of Onset Diabetes Mother Diabetes Maternal Grandmother Diabetes Paternal Grandmother other (attention deficit) Son Diabetes Maternal Uncle other (no cardiac hx per pt) Other Social History Tobacco Use Smoking status: Never Smokeless tobacco: Never Vaping Use Vaping Use: Never used Substance Use Topics Alcohol use: Yes Comment: rare Drug use: No Current Outpatient Medications Medication Sig Miscellaneous Medical Supply 1 Each once daily. levothyroxine (LEVOXYL) 50 mcg tablet Take 1 tablet by mouth once daily. Take on empty stomach. For Thyroid metFORMIN (GLUCOPHAGE) 500 mg tablet Take 2 tablets by mouth daily with breakfast. amLODIPine (NORVASC) 10 mg tablet Take 1 tablet by mouth once daily. losartan (COZAAR) 50 mg tablet Take 1 tablet by mouth once daily. metoprolol tartrate, short acting, (LOPRESSOR) 25 mg tablet Take 0.5 tablets by mouth twice daily. hydrOXYzine HCl (ATARAX) 50 mg tablet Take 0.5 tablets by mouth three times daily. (Patient taking differently: Take 25 mg by mouth once daily.) clopidogrel (PLAVIX) 75 mg tablet take 1 tablet by mouth once daily MULTIVITAMIN ORAL Take by mouth once daily. atorvastatin (LIPITOR) 40 mg tablet Take 1 tablet by mouth once daily. aspirin, enteric coated (ASPIRIN, ENTERIC COATED) 81 mg EC tablet take 1 tablet by mouth once daily diazePAM (VALIUM) 10 mg tablet take 1 tablet by mouth 1 hour PRIOR TO MRI APPOINTMENT (Patient not taking: Reported on 07/21/2022) glimepiride (AMARYL) 2 mg tablet Take 1 tablet by mouth daily with breakfast. For diabetes (Patient not taking: Reported on 07/21/2022) triamcinolone (KENALOG) 0.025 % ointment Apply to affected area three times daily. (Patient not taking: No sig reported) No current facility-administered medications for this visit. ALLERGIES Allergen Reactions Fish Containing Pro* Hives, Swelling Tetanus Vaccines An* Local Reaction Cardiac Testing TTE 2019: SUMMARY: 1. Left ventricle: Systolic function is normal by visual assessment. The estimated ejection fraction is 70%. There are no regional wall motion abnormalities. 2. Ventricular septum: There is no evidence of a ventricular septal defect. 3. Atrial septum: Color Doppler shows no evidence of shunt. There is no aneurysm. 4. No significant valve disease. LB 01/20/2019: SUMMARY: 1. Left ventricle: Systolic function is normal. The estimated ejection fraction is 55%. 2. Left atrium: No evidence of thrombus in the atrial cavity or appendage. 3. Atrial septum: Color Doppler shows a ehiso-nu-[id number] shunt. There is evidence of right to left shunting with injection of agitated saline contrast. 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 No thrombus is identified within the aneurysm. 4. Aortic valve: There is redundancy of the non coronary cusp. Trileaflet. There is mild prolapse of the non coronary cusp resulting in a mild eccentric AI jet. There is mild, 1+ regurgitation. 5. Tricuspid valve: There is trivial, less than 1+ regurgitation. 6. Aorta: There is mild dilation of proximal ascending aorta. 7. Left upper pulmonary vein: The Doppler velocity and flow profile are normal. 8. Left lower pulmonary vein: The Doppler velocity and flow profile are normal. 9. Right upper pulmonary vein: The Doppler velocity and flow profile are normal. MRA neck 2019: FINDINGS: There are patent origins of the great vessels. Along the lengths of the right and left vertebral arteries, there are no stenoses. Both vertebral arteries are patent through the axis loop to the basilar artery. There is no evidence of dissection. The lower right and left common carotid arteries are widely patent. The right carotid bifurcation demonstrates no hemodynamically significant stenosis. There is 0 percent stenosis by NASCET criteria. The external carotid is patent. The left carotid bifurcation demonstrates no hemodynamically significant stenosis. There is 0 percent stenosis by NASCET criteria. The external carotid is patent. There is good flow in the upper cervical internal carotid arteries to the carotid siphons bilaterally, with no evidence of stenosis or dissection. IMPRESSION: No significant carotid bifurcation stenosis or ulceration, 0 percent MRA head 2019: FINDINGS: There appears to be occlusion of the right posterior cerebral artery at its origin. There is a predominantly origin of the left posterior cerebral artery which appears widely patent. The bilateral anterior and middle cerebral arteries appear patent. The distal vertebral arteries and basilar arteries appear normal. There is no evidence of aneurysm or vascular malformation. 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 Otherwise unremarkable MRA of the intracranial circulation. MRI Brain 2019: FINDINGS: There is scattered abnormal diffusion restriction within the right occipital lobe consistent with acute infarction. There is also abnormal diffusion restriction within the splenium of the corpus callosum predominately on the right and a small area of diffusion restriction within the posterolateral aspect of the right thalamus. The ventricles, sulci, and cisterns are normal in size and configuration for the patient's age. There is no evidence of mass lesion, edema, or hemorrhage. There is no hydrocephalus, midline shift, or herniation. No epidural or subdural collections are present. There are scattered areas of increased T2 and FLAIR signal within the periventricular and subcortical white matter. The hypothalamus and pituitary regions are normal. The brain stem, cerebellum, and craniocervical junction appear normal. The globes and orbital contents are grossly normal. The paranasal sinuses appear clear. Following Gadolinium administration, there is no pathologic enhancement in the brain or meninges. There is normal enhancement of the cerebral vascular structures and choroid. IMPRESSION: Scattered areas of acute infarction within the right occipital lobe. Abnormal diffusion restriction consistent with acute infarct also extends into the splenium of the corpus callosum predominantly to the right of midline. There is also a small area of abnormal diffusion restriction consistent with acute infarction within the posterolateral aspect of the right thalamus. No abnormal enhancement seen following administration of gadolinium contrast. Review of Systems: GENERAL: No weight loss, malaise or fevers. HEENT: Negative for frequent or significant headaches NECK: Negative for goiter, pain or significant neck swelling RESPIRATORY: Negative for cough, hemoptysis, wheezing, COPD, dyspnea or shortness of breath CARDIOVASCULAR: See HPI GI: Not reviewed MUSCULOSKELETAL: Negative for joint pain or swelling, back pain or muscle pain SKIN: Not reviewed ENDOCRINE: Negative for cold or heat intolerance, polyuria or polydipsia. NEURO: No history of headaches, syncope, paralysis, seizures or tremors Physical Examination:: BP 134/89 Pulse 74 Ht 5' 4 (1.63m) Wt 207 lb (93.9kg) SpO2 99[room air]% BMI 35.51 kg/(m^2). General Appearance: Well appearing, alert, in no acute distress, well-hydrated, well nourished.. Skin: Skin color, texture, turgor normal, no suspicious rashes or lesions. Head: Normocephalic, no masses, lesions, tenderness or abnormalities. Eyes: Anicteric sclera. Pupils are equally round. Extraocular movements are intact. Neck: Supple, no adenopathy; thyroid symmetric, normal size, no bruits. Lungs: Lungs clear to auscultation. No wheezing, rhonchi, rales.. Heart: regular rate and rhythm, no murmur, gallop or rub, normal, S1, S2, physiologic split, no lifts, heaves, or thrills, PMI not displaced Peripheral Pulses: Normal. ASSESSMENT/PLAN: 1. PFO (patent foramen ovale) - ICD9: 745.5, ICD10: Q21.1 (primary diagnosis) 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, unspecified blood vessel laterality (HCC) - ICD9: 434.11, ICD10: I63.439 She had an occipital infarct in 2019, and has undergone complete work-up to establish a source for her thromboembolic disease. Her MRI/MRA revealed an occipital stroke, and relatively normal great vessels in her neck. Her loop recorder which has been in place for over a year now showed no evidence for atrial fibrillation. And she has a clear PFO on transesophageal echocardiogram. Would refer her for PFO closure at this time. 2. Primary hypertension - ICD9: 401.9, ICD10: I10 - good control - Continue current medication(s) - Recommended regular aerobic exercise. - Recommend home blood pressure monitoring, to bring results in on next visit - Goal of BP <130/80 3. Mixed hyperlipidemia - ICD9: 272.2, ICD10: E78.2 - good control - Continue current medication. Parish Fernandez MD [employer] Attendant of Internal Medicine [facility] Interventional Cardiology [employer] Operator of Structural Heart Disease [address], [address] [place] [address] Facsimile: [phone] Email: [email or web address] documented in this encounter [facility] 07-17-2022 Miscellaneous Notes Called and informed pt. Pt indicated understanding. I sent these to Arthur Lau APRN.SRAVANTHI Please advise. Martha Venegas is calling Isabel Davenport MD today requesting orders for glucose meter and blood pressure monitor. Please fax to Arthur Kate Please contact patient once the orders have been sent documented in this encounter [facility] 07-12-2022 History of Present illness Narrative Encounter Diagnosis ICD-10-CM 1. Homonymous hemianopsia, left H53.462 VISUAL FIELD 30-2 OU (BOTH EYES) 2. Occipital stroke (HCC) I63.9 tropicamide 1 % 1 Drop (MYDRIACYL) fluorescein-benoxinate 0.25-0.4 % 1 Drop (FLURESS) 3. Type 2 diabetes mellitus without retinopathy (HCC) E11.9 4. Presbyopia H52.4 Educated pt Miya stable from 3 years ago No new strokes No signs of ret Continue strict glucose control Updated glasses Follow up yearly Antonio Christina OD July 12, 2022 11:51 AM documented in this encounter [facility] 06-14-2022 History of Present illness Narrative HISTORY OF PRESENT ILLNESS: Ms. Venegas is a 51 year old female with a history of obesity, hypertension, hyperlipidemia, diabetes and CVA in 01/21 who presents to cardiology clinic for routine follow-up. Patient reports that in January 2019, she started having facial episodes of confusion where she would get lost while at work or while driving around town. 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 She was found to have hemianopsia and was taken to the ER for further evaluation. She did have an MRI and MRA of the brain revealing scattered areas of acute infarct in the right occipital lobe with an occluded right BOTTOM PAINTER. She was admitted to [facility] for further evaluation. Of note, prior to her hospitalization, her diabetes was not optimally controlled as her hemoglobin A1c was 10, her blood pressures were suboptimal ranging in the 150s/90s-100s, and her lipids were not optimally controlled and she was not on statin therapy. During her hospitalization, her medications were adjusted with improved blood sugar and blood pressure control. She did have a TTE and a LB performed revealing normal LV systolic function without evidence of intracardiac thrombus or masses but with evidence of a PFO. Since her hospitalization, she did wear an event monitor revealing no evidence of arrhythmias. She has since undergone a loop recorder implantation in 08/23 which has not revealed any evidence of atrial arrhythmias. She was given a referral to interventional cardiology during her last clinic visit for consideration of PFO closure but has not yet scheduled her appointment. She presents to cardiology today for follow-up. In discussion with the patient in clinic today, she denies any significant cardiac complaints. She specifically denies any symptoms of chest pain, dyspnea on exertion, orthopnea, paroxysmal nocturnal dyspnea, lower extremity edema, claudication, presyncope, syncope, or palpitations. She does have mild deficits from her stroke including mild peripheral vision loss and some memory issues. She has not worked since her stroke but is looking to get back in the workforce in the next few months. She does express some anxiety over this decision. Otherwise, she does check her blood pressures at home and reports they are well controlled in the 110s/70s. She has been taking her statin therapy as well. She is scheduled to get repeat blood work by her PCP in the near future. She has not been engaging in regular exercise recently. She does otherwise have a stationary bike and a treadmill at home. She has been trying to go out on walks with her family from time to time. Of note, patient reports that she did get COVID-19 last month. She has not yet been vaccinated but had an overall mild case. She does continue to have residual cough which is gradually improving. PAST MEDICAL HISTORY Diagnosis Date Asthma Seasonal, uses Albuterol once a month Diabetes mellitus (HCC) Family history of sleep apnea History of stroke Hypertension Mixed hyperlipidemia PFO (patent foramen ovale) Stroke (cerebrum) (HCC) TMJ arthritis PAST SURGICAL HISTORY Procedure Laterality Date OOPHORECTOMY PARTIAL/TOTAL UNI/BI 2006 Right PAST SURGICAL HISTORY OF 2007 Excision abdominal mass PAST SURGICAL HISTORY OF 10/14/2008 right foot soft tissue mass excision PAST SURGICAL HISTORY OF 11/03/10 Left planter fasciotomy VAGINAL HYSTERECTOMY UTERUS 250 GM/< 2006 Hysterectomy, vaginal XTRNL PT ACTIV ECG TRANSMIS W/R&I </30 DAYS 08/15/2019 MEDICATIONS: triamcinolone (KENALOG) 0.025 % ointment Apply to affected area three times daily. hydrOXYzine HCl (ATARAX) 50 mg tablet Take 0.5 tablets by mouth three times daily. clopidogrel (PLAVIX) 75 mg tablet take 1 tablet by mouth once daily metFORMIN (GLUCOPHAGE) 500 mg tablet Take 2 tablets by mouth twice daily with meals. MULTIVITAMIN ORAL Take by mouth once daily. hydroCHLOROthiazide (HYDRODIURIL, ESIDRIX) 25 mg tablet Take 1 tablet by mouth once daily. atorvastatin (LIPITOR) 40 mg tablet Take 1 tablet by mouth once daily. aspirin, enteric coated (ASPIRIN, ENTERIC COATED) 81 mg EC tablet take 1 tablet by mouth once daily amLODIPine (NORVASC) 10 mg tablet Take 1 tablet by mouth once daily. losartan (COZAAR) 50 mg tablet Take 1 tablet by mouth once daily. metoprolol tartrate, short acting, (LOPRESSOR) 25 mg tablet Take 0.5 tablets by mouth twice daily. ALLERGIES Allergen Reactions Fish Containing Pro* Hives, Swelling Tetanus Vaccines An* Local Reaction SOCIAL HISTORY: Social History Tobacco Use Smoking status: Never Smokeless tobacco: Never Vaping Use Vaping Use: Never used Substance Use Topics Alcohol use: Yes Comment: rare Drug use: No FAMILY HISTORY Problem Relation Age of Onset Diabetes Mother Diabetes Maternal Grandmother Diabetes Paternal Grandmother other (attention deficit) Son Diabetes Maternal Uncle other (no cardiac hx per pt) Other REVIEW OF SYSTEMS: GENERAL: Negative for: Fever, Chills, or Night sweats RESPIRATORY: Negative for: Cough, Blood in Sputum, Shortness of breath, Wheezing CARDIAC: Negative history of chest pain on exertion, dyspnea on exertion, orthopnea, paroxysmal nocturnal dyspnea, lower extremity edema, presyncope, syncope, or palpitations MUSCULOSKELETAL: Negative for: Muscle or joint pain, Joint swelling OTHER: The rest of the review of systems is unremarkable and negative or non-contributory I have confirmed and edited as necessary, the [facility] and [facility] PHYSICAL EXAMINATION: BP 134/84 Pulse 73 Resp 18 Ht 5' 4 (1.63m) Wt 207 lb (93.9kg) SpO2 97% BMI 35.51 kg/(m^2). General appearance: Pleasant female, alert, appears to be in no acute distress, cooperative Head: Normocephalic, atraumatic HEENT: Extraocular movements intact; Lungs: CTAB; no rales, rhonchi, or wheezes Heart: RRR; normal S1/S2; no murmurs/gallops/rubs Extremities: No lower extremity edema bilaterally Neurologic: Grossly nonfocal Psych: Normal mood/affect CARDIAC TESTING: EKG: EKG, 01/16/19: Normal sinus rhythm. Minimal voltage criteria for left ventricular hypertrophy. 30 day event monitor, 03/21-04/21/19: Sinus rhythm throughout with heart rates ranging from 59-97 bpm. No PACs or PVCs noted. Echocardiogram: OSH TTE, 01/17/19: Normal LV systolic function with ejection fraction 70%. Normal diastolic function. No significant valve disease. OSH LB, 01/20/19: Normal LV systolic function with ejection fraction 55%. Redundant noncoronary cusp with mild aortic insufficiency. Small atrial septal aneurysm noted with evidence of PFO with [id number] shunting by color Doppler and right to left shunting with agitated saline contrast. I have personally reviewed the Electrocardiogram and reports of prior echocardiograms as per above. I also reviewed records of patient's hospitalization at [facility] in 01/21 in [facility]where. ASSESSMENT: Ms. Venegas is a 51 year old female with a history of obesity, hypertension, hyperlipidemia, diabetes and CVA in 01/21 who presents to cardiology clinic for routine follow-up. PLAN AND RECOMMENDATIONS: 1. CVA, suspected embolic in etiology: Patient with CVA back in 03/23 which was suspected to be embolic in etiology. She did have several potential etiologies for her CVA including prior uncontrolled hypertension, hyperlipidemia, and diabetes. To ensure no evidence of atrial arrhythmias, she has had a loop recorder implanted which has not revealed any evidence of atrial arrhythmias in the last several years. Given no clear definitive etiology for her CVA, I did recommend consideration of PFO closure. She remains interested in undergoing PFO closure and have again given her a referral to interventional cardiology for further evaluation for PFO closure. Otherwise, currently she remains on therapy with ASA, lipitor, and plavix. 2. PFO: Patient was found to have evidence of a PFO as per documentation of her prior TTE and LB performed at [facility]. I reviewed that PFO is a common finding present in about 30% of the population and is only rarely implicated as an etiology for recurrent strokes. However, given her young age and prior CVA, it would be reasonable to consider potential PFO closure as no clear etiology of her CVA has been determined. As such, I have again given her a referral to interventional cardiology as per above. 3. Hypertension: Patient's blood pressure is well controlled on her current antihypertensive regimen based on her home blood pressure readings. 4. Hyperlipidemia: Patient continues on high intensity statin therapy with Lipitor. She is scheduled to get repeat blood work in the next few weeks as per her PCP. Given her history of CVA and diabetes, her LDL should certainly be < 100 and ideally < 70. 5. COVID Pandemic: Patient was interested in getting vaccinated since her recent bout with COVID-19. As she recently had COVID and is still recovering from some of the symptoms, I did recommend she wait a few weeks and encouraged her to get vaccinated thereafter. I also informed her that they are anticipating a revised vaccine shot around mid July. Some elements of A&P were copied from note from 11/30/2021, which have been updated where appropriate, and all reflect current medical decision making from today (June 14, 2022). Merrai Camarillo MD documented in this encounter [facility] 06-14-2022 Instructions Merari Camarillo MD - 06/14/2022 11:12 AM EDT LIFESTYLE CHANGE A healthy lifestyle is the most important component of your overall treatment plan. Please give serious thought to the following areas and commit to making snf changes. EAT A WHOLE FOOD, PLANT BASED DIET The nutrition your body gets is more important than the medicine you take. What matters most is the overall way you eat. We encourage you to minimize the use of animal products (which include dairy and all meats except fatty fish) and use whole, unprocessed plant foods to provide your protein, vitamins and other nutrients. We have a lot of information to share with you on this topic. This is not a diet. It is a way of life that you will keep with you. EXERCISE REGULARLY It is not important to spend hours in the gym, lifting weights and perspiring heavily. A total of 2-3 hours per week of aerobic (causing you to be moderately short of breath) exercise is sufficient to improve your health. Talk to us before you begin a new exercise program, if you have heart disease or experience shortness of breath or chest pain. REDUCE STRESS Chronic emotional and physical stress leads to disease. Ways of reducing stress include meditation, visualization, prayer, yoga and other forms of relaxation therapy. Consistency is the bradshaw. Find a technique that works for you and do it every day. CULTIVATE RELATIONSHIPS Loneliness and isolation have a major negative impact on health. Seek out others who can love, care for and nurture you. Avoid hurtful relationships. MAINTAIN IDEAL BODY WEIGHT The best way to do this is to do all the things above. Our bodies naturally find the right weight if we keep moving and feed ourselves the right food. If your BMI is greater than 25, we strongly recommend a referral to a weight management program. Please speak to us or your family physician about available programs. AVOID NICOTINE IN ALL FORMS This includes all tobacco products, whether chewed, smoked, vaped, or rubbed on the skin. Smoking cessation programs, which can make use of tobacco substitutes, medications to suppress cravings and behavior management, are available. Please contact your family physician about programs in your area. documented in this encounter [facility] 06-14-2022 Nurse Note Patient has no cardiac complaints today. Mckenzie Flores CMA documented in this encounter [facility] 03-15-2022 Miscellaneous Notes Cardiac clearance form received and placed in Ian's door box. Rosalinda Colorado LPN Left voicemail with surgery coordinator at [facility] to call back so we can get another form sent. Rosalinda Colorado LPN Pt Was seen yesterday In Office. Preop Cardiac eval Orthopedic surgery Thru [facility] notes say That clearance form Placed in Dr Shepard mail Box. I reviewed Records and do Not see the form. Nothing scanned into [facility] either Please call [facility] and obtain Clearance form Thanks Jennie Sosa APRN.[employer] documented in this encounter [facility] 03-14-2022 History of Present illness Narrative Chief Complaint: Patient presents with: Cardiac Clearance: ortho surgery History of Present Illness: Martha Venegas is a 51 year old female with history of hypertension, hyperlipidemia, diabetes, obesity remote CVA in January 2019. To provide brief history patient reported that in January 2019 she had facial symptoms as well as confusion double vision and blurry vision. At [facility] She had an MRI/MRA of the brain revealing scattered areas of acute infarct in the right occipital lobe with an acute right BOTTOM PAINTER. She was admitted to [facility]. She did have LB as well as surface echocardiogram revealing normal LV function without evidence of thrombus mass but with evidence of a PFO. She had recorder placed which did not reveal any arrhythmias. She established with Dr. Camarillo in November 2021. She presents today for preoperative cardiac risk stratification prior to torn right rotator cuff surgery that is yet to be scheduled With [facility] She denies any complaints of chest pain, palpitations tach palpitations syncope nor near syncope she has no orthopnea PND or lower extremity edema. She has mild memory issues since the stroke. She has no signs of acute coronary syndrome decompensated heart failure tachycardia bradycardia arrhythmia or valvular heart disease. PAST MEDICAL HISTORY Diagnosis Date Asthma Seasonal, uses Albuterol once a month Diabetes mellitus (HCC) Family history of sleep apnea History of stroke Hypertension Mixed hyperlipidemia PFO (patent foramen ovale) Stroke (cerebrum) (HCC) TMJ arthritis PAST SURGICAL HISTORY Procedure Laterality Date OOPHORECTOMY PARTIAL/TOTAL UNI/BI 2006 Right PAST SURGICAL HISTORY OF 2007 Excision abdominal mass PAST SURGICAL HISTORY OF 10/14/2008 right foot soft tissue mass excision PAST SURGICAL HISTORY OF 11/03/10 Left planter fasciotomy VAGINAL HYSTERECTOMY UTERUS 250 GM/< 2006 Hysterectomy, vaginal XTRNL PT ACTIV ECG TRANSMIS W/R&I </30 DAYS 08/15/2019 FAMILY HISTORY Problem Relation Age of Onset Diabetes Mother Diabetes Maternal Grandmother Diabetes Paternal Grandmother other (attention deficit) Son Diabetes Maternal Uncle other (no cardiac hx per pt) Other Social History Tobacco Use Smoking status: Never Smoker Smokeless tobacco: Never Used Vaping Use Vaping Use: Never used Substance Use Topics Alcohol use: Yes Comment: rare Drug use: No Current Outpatient Medications Medication Sig triamcinolone (KENALOG) 0.025 % ointment Apply to affected area three times daily. hydrOXYzine HCl (ATARAX) 50 mg tablet Take 0.5 tablets by mouth three times daily. clopidogrel (PLAVIX) 75 mg tablet take 1 tablet by mouth once daily metFORMIN (GLUCOPHAGE) 500 mg tablet Take 2 tablets by mouth twice daily with meals. MULTIVITAMIN ORAL Take by mouth once daily. hydroCHLOROthiazide (HYDRODIURIL, ESIDRIX) 25 mg tablet Take 1 tablet by mouth once daily. atorvastatin (LIPITOR) 40 mg tablet Take 1 tablet by mouth once daily. amLODIPine (NORVASC) 10 mg tablet take 1 tablet by mouth once daily losartan (COZAAR) 50 mg tablet take 1 tablet by mouth once daily metoprolol tartrate, short acting, (LOPRESSOR) 25 mg tablet take 1/2 tablet by mouth twice a day aspirin, enteric coated (ASPIRIN, ENTERIC COATED) 81 mg EC tablet take 1 tablet by mouth once daily No current facility-administered medications for this visit. ALLERGIES Allergen Reactions Fish Containing Pro* Hives, Swelling Tetanus Vaccines An* Local Reaction Review of Systems: Review of Systems Constitutional: Negative for chills, diaphoresis and fever. HENT: Negative for hearing loss. Eyes: Negative for blurred vision, double vision and photophobia. Respiratory: Negative for cough, hemoptysis, shortness of breath and wheezing. Cardiovascular: Negative for chest pain, palpitations, orthopnea, claudication, leg swelling and PND. Gastrointestinal: Negative for abdominal pain, constipation, diarrhea, heartburn and nausea. Genitourinary: Negative for frequency. Musculoskeletal: Negative for back pain, falls, joint pain, myalgias and neck pain. Skin: Negative for itching and rash. Neurological: Negative for dizziness, tingling, tremors, weakness and headaches. Endo/Heme/Allergies: Does not bruise/bleed easily. Psychiatric/Behavioral: Positive for memory loss. Negative for depression. The patient is not nervous/anxious. Physical Examination: BP 132/88 (BP Site: Left Arm, BP Position: Sitting, BP Cuff Size: Regular Adult) Pulse 77 Resp 18 Ht 5' 4 (1.626 m) Wt 207 lb (93.9 kg) SpO2 98% BMI 35.53 kg/m BMI 35.53 kg/(m^2) Physical Exam Constitutional: Appearance: She is obese. HENT: Head: Normocephalic. Cardiovascular: Rate and Rhythm: Normal rate and regular rhythm. Heart sounds: Normal heart sounds. Pulmonary: Effort: Pulmonary effort is normal. Breath sounds: Normal breath sounds. Abdominal: General: Bowel sounds are normal. Palpations: Abdomen is soft. Musculoskeletal: General: Normal range of motion. Cervical back: Normal range of motion and neck supple. Skin: General: Skin is warm and dry. Neurological: Mental Status: She is alert and oriented to person, place, and time. Psychiatric: Mood and Affect: Mood and affect normal. Cognition and Memory: Memory normal. Judgment: Judgment normal. Cardiac Testing and Procedures: EKG: EKG, 03/14/2022-normal sinus rhythm EKG, 01/16/19: Normal sinus rhythm. Minimal voltage criteria for left ventricular hypertrophy. 30 day Event monitor 03/21-04/21/19: Sinus rhythm throughout with heart rates ranging from 59-97 bpm. No PACs or PVCs noted. Echocardiogram: OSH TTE, 01/17/19: Normal LV systolic function with ejection fraction 70%. Normal diastolic function. No significant valve disease. OSH LB, 01/20/19: Normal LV systolic function with ejection fraction 55%. Redundant noncoronary cusp with mild aortic insufficiency. Small atrial septal aneurysm noted with evidence of PFO with [id number] shunting by color Doppler and right to left shunting with agitated saline contrast. Recommendations: 1. Hypertension-blood pressure acceptable. 2. Hyperlipidemia-last LDL from January 2021 was 119. She had been off statin for period of time and just resumed in December. Lipid orders have been provided. 3. Remote CVA suspected to be embolic in origin. She did wear a 30 Day event monitor with no arrhythmic episodes identified. She does have loop recorder as well. Given no clear etiology for her CVA Dr. Camarillo did recommend consideration of PFO closure. She was referred to interventional cardiology for further evaluation. She has not made any appointment at this time. She remains on aspirin as well as Plavix and statin therapy. 4. Diabetes-closely monitors her blood sugars. 5. Obesity-is trying to work on weight reduction. She is doing much better with dietary habits. 6. Preoperative cardiac risk stratification-patient is to undergo torn right rotator cuff orthopedic surgery yet to be scheduled. She will be low cardiac risk for the upcoming procedure. We will send the cardiac clearance evaluation form to the orthopedic surgeon. Will hold Plavix 5 days prior to the surgical intervention. She is recommended to continue aspirin therapy. She has a follow-up appointment scheduled in June which we will keep with Dr. Camarillo. [address] in [address] encounter [facility] 03-14-2022 Nurse Note Patient has no cardiac complaints today. Mckenzie Flores CMA documented in this encounter [facility] 03-01-2022 Miscellaneous Notes Clearance form received from [facility]. Form placed in Dr. Camarillo's door box. Rosalinda Colorado LPN documented in this encounter [facility] 02-18-2022 Instructions Danette Lopez APRN.SRAVANTHI - 02/18/2022 2:00 PM EDT Patient instructed to: * Use cold compresses, 20 minutes 4-6 times per day * Use Toomsuba Solution and Aveeno products as needed. * Wash all clothes. * Return to primary care provider if no relief in 3-4 days. documented in this encounter [facility] 02-18-2022 History of Present illness Narrative This note was created using Sensdatariter. Subjective Martha Venegas is a 51 year old female. 51 year old female with PMH HTN, DM, thyroid, PFO, CVA, asthma, and right shoulder rotator cuff presents with right shoulder complaints. Right shoulder States it is a two part. She has history of rotator cuff, and has been informed she needed surgery, but was cancelled during COVID. and just been putting it off She has an orthopedic who is overseeing her for this. Has been using OTC Tylenol States pain is worse at night, endorses that she is unable to sleep at night. States she has been diagnosed with rotator cuff from an MRI. States last weekend she was in [place] and had bed bug bites to her right shoulder has utilized OTC creams. the pain of my rotator cuff and then these bug bites is just too much Denies additional trauma or injury. Denies fever or chills. The history is provided by the patient. Rash This is a new problem. The current episode started in the past 7 days. The problem has been waxing and waning since onset. Location: right shoulder. The rash is characterized by redness and itchiness. She was exposed to an insect bite/sting. Pertinent negatives include no anorexia, congestion, cough, diarrhea, eye pain, facial edema, fatigue, fever, joint pain, nail changes, rhinorrhea, shortness of breath, sore throat or vomiting. Past treatments include anti-itch cream. The treatment provided no relief. Her past medical history is significant for asthma. There is no history of allergies, eczema or varicella. PAST MEDICAL HISTORY Diagnosis Date Asthma Seasonal, uses Albuterol once a month Diabetes mellitus (HCC) Family history of sleep apnea History of stroke Hypertension PFO (patent foramen ovale) Stroke (cerebrum) ([facility]) TMJ arthritis PAST SURGICAL HISTORY Procedure Laterality Date OOPHORECTOMY PARTIAL/TOTAL UNI/BI 2006 Right PAST SURGICAL HISTORY OF 2007 Excision abdominal mass PAST SURGICAL HISTORY OF 10/14/2008 right foot soft tissue mass excision PAST SURGICAL HISTORY OF 11/03/10 Left planter fasciotomy VAGINAL HYSTERECTOMY UTERUS 250 GM/< 2006 Hysterectomy, vaginal XTRNL PT ACTIV ECG TRANSMIS W/R&I </30 DAYS 08/15/2019 ALLERGIES Fish Containing Products and Tetanus Vaccines And Toxoid MEDICATIONS clopidogrel (PLAVIX) 75 mg tablet take 1 tablet by mouth once daily metFORMIN (GLUCOPHAGE) 500 mg tablet Take 2 tablets by mouth twice daily with meals. MULTIVITAMIN ORAL Take by mouth once daily. hydroCHLOROthiazide (HYDRODIURIL, ESIDRIX) 25 mg tablet Take 1 tablet by mouth once daily. atorvastatin (LIPITOR) 40 mg tablet Take 1 tablet by mouth once daily. amLODIPine (NORVASC) 10 mg tablet take 1 tablet by mouth once daily losartan (COZAAR) 50 mg tablet take 1 tablet by mouth once daily levothyroxine (LEVOXYL) 50 mcg tablet Take 1 tablet by mouth once daily. Take on empty stomach. For Thyroid metoprolol tartrate, short acting, (LOPRESSOR) 25 mg tablet take 1/2 tablet by mouth twice a day aspirin, enteric coated (ASPIRIN, ENTERIC COATED) 81 mg EC tablet take 1 tablet by mouth once daily triamcinolone (KENALOG) 0.025 % ointment Apply to affected area three times daily. hydrOXYzine HCl (ATARAX) 50 mg tablet Take 0.5 tablets by mouth three times daily. FAMILY HISTORY Problem Relation Age of Onset Diabetes Mother Diabetes Maternal Grandmother Diabetes Paternal Grandmother other (attention deficit) Son Diabetes Maternal Uncle other (no cardiac hx per pt) Other Social History Tobacco Use Smoking status: Never Smoker Smokeless tobacco: Never Used Vaping Use Vaping Use: Never used Substance Use Topics Alcohol use: Yes Comment: rare Drug use: No Review of Systems Constitutional: Negative for activity change, appetite change, fatigue and fever. HENT: Negative for congestion, rhinorrhea and sore throat. Eyes: Negative for pain, discharge and itching. Respiratory: Negative for apnea, cough, choking, chest tightness and shortness of breath. Cardiovascular: Negative for chest pain, palpitations and leg swelling. Gastrointestinal: Negative for abdominal pain, anorexia, diarrhea, nausea and vomiting. Musculoskeletal: Negative for arthralgias, back pain, gait problem and joint pain. Right shoulder pain (chronic) Skin: Positive for rash. Negative for nail changes. Allergic/Immunologic: Negative for environmental allergies, food allergies and immunocompromised state. Neurological: Negative for dizziness, facial asymmetry, light-headedness and headaches. Hematological: Negative for adenopathy. Does not bruise/bleed easily. Psychiatric/Behavioral: Negative for agitation and behavioral problems. Objective BP 130/74 Pulse 70 Temp 36.2 C (97.2 F) Resp 18 Wt 97.6 kg (215 lb 3.2 oz) SpO2 97% BMI 36.94 kg/m Physical Exam Vitals and nursing note reviewed. Constitutional: General: She is not in acute distress. Appearance: Normal appearance. She is normal weight. She is not ill-appearing, toxic-appearing or diaphoretic. HENT: Head: Normocephalic and atraumatic. Right Ear: Ear canal and external ear normal. Left Ear: Ear canal and external ear normal. Nose: Nose normal. No congestion or rhinorrhea. Mouth/Throat: Mouth: Mucous membranes are moist. Pharynx: No oropharyngeal exudate or posterior oropharyngeal erythema. Eyes: General: Right eye: No discharge. Left eye: No discharge. Extraocular Movements: Extraocular movements intact. Conjunctiva/sclera: Conjunctivae normal. Pupils: Pupils are equal, round, and reactive to light. Cardiovascular: Rate and Rhythm: Normal rate and regular rhythm. Pulses: Normal pulses. Heart sounds: Normal heart sounds. No murmur heard. No friction rub. Pulmonary: Effort: Pulmonary effort is normal. No respiratory distress. Breath sounds: Normal breath sounds. No stridor. No wheezing, rhonchi or rales. Chest: Chest wall: No tenderness. Abdominal: General: Abdomen is flat. There is no distension. Palpations: Abdomen is soft. There is no mass. Tenderness: There is no abdominal tenderness. There is no right CVA tenderness, left CVA tenderness, guarding or rebound. Hernia: No hernia is present. Musculoskeletal: General: No swelling, tenderness, deformity or signs of injury. Normal range of motion. Cervical back: Normal range of motion and neck supple. No rigidity. Right lower leg: No edema. Left lower leg: No edema. Comments: Right upper extremity with limited and reduced ROM. Neuro intact Sensation intact Lymphadenopathy: Cervical: No cervical adenopathy. Skin: General: Skin is warm and dry. Coloration: Skin is not jaundiced or pale. Findings: Rash (right anterior chest wtih raised red varying size macupules. No abscess. No red streaking. No petechia. No crepitus) present. No bruising, erythema or lesion. Neurological: General: No focal deficit present. Mental Status: She is alert and oriented to person, place, and time. Cranial Nerves: No cranial nerve deficit. Sensory: No sensory deficit. Motor: No weakness. Coordination: Coordination normal. Gait: Gait normal. Psychiatric: Mood and Affect: Mood normal. Behavior: Behavior normal. Thought Content: Thought content normal. Judgment: Judgment normal. Assessment and Plan ASSESSMENT/PLAN: 1. Dermatitis - ICD9: 692.9, ICD10: L30.9 (primary diagnosis) - Topical steriod tx with Rx for steriod cream/ointment- see orders - Anti itch therapy of Calomine lotion, Oatmeal baths and Rx for Atarax recommended prn - discussed skin care of rash - follow up if symptoms persist or worsen. 2. Chronic right shoulder pain - ICD9: 719.41, 338.29, ICD10: M25.511, G89.29 Chronic in nature New trauma or injury Instructed to follow up with ortho. Danette Lopez APRN.[employer] documented in this encounter [facility] 01-23-2020 History of Past i llness Narrative Problem Noted Date Resolved Date PFO (patent foramen ovale) 01/23/202012/25 TIA (transient ischemic attack) 01/16/2019 03/10/2019 documented as of this encounter (statuses as of 12/25/2022) [facility] History of Past illness Narrative* Problem Noted Date Resolved Date PFO (patent foramen ovale) 01/23/202012/25 TIA (transient ischemic attack) 01/16/2019 03/10/2019 documented as of this encounter (statuses as of 12/28/2022) [address]20-2020 History of Past illness Narrative* Problem Noted Date Resolved Date PFO (patent foramen ovale) 01/23/202012/25 TIA (transient ischemic attack) 01/16/2019 03/10/2019 documented as of this encounter (statuses as of 12/29/2022) [address]20-2020 History of Past illness Narrative* Problem Noted Date Resolved Date PFO (patent foramen ovale) 01/23/202012/25 TIA (transient ischemic attack) 01/16/2019 03/10/2019 documented as of this encounter (statuses as of 01/01/2023) [address]20-2020 History of Past illness Narrative* Problem Noted Date Resolved Date PFO (patent foramen ovale) 01/23/202012/25 TIA (transient ischemic attack) 01/16/2019 03/10/2019 documented as of this encounter (statuses as of 01/03/2023) [address]20-2020 History of Past illness Narrative* Problem Noted Date Resolved Date PFO (patent foramen ovale) 01/23/202012/25 TIA (transient ischemic attack) 01/16/2019 03/10/2019 documented as of this encounter (statuses as of 01/09/2023) [address]20-2020 History of Past illness Narrative* Problem Noted Date Resolved Date PFO (patent foramen ovale) 01/23/202012/25 TIA (transient ischemic attack) 01/16/2019 03/10/2019 documented as of this encounter (statuses as of 01/29/2023) [address]20-2020 History of Past illness Narrative* Problem Noted Date Resolved Date PFO (patent foramen ovale) 01/23/202012/25 TIA (transient ischemic attack) 01/16/2019 03/10/2019 documented as of this encounter (statuses as of 01/29/2023) [address]20-2020 History of Past illness Narrative* Problem Noted Date Resolved Date PFO (patent foramen ovale) 01/23/202012/25 TIA (transient ischemic attack) 01/16/2019 03/10/2019 documented as of this encounter (statuses as of 01/31/2023) [address]20-2020 History of Past illness Narrative* Problem Noted Date Resolved Date PFO (patent foramen ovale) 01/23/202012/25 TIA (transient ischemic attack) 01/16/2019 03/10/2019 documented as of this encounter (statuses as of 02/01/2023) [address]20-2020 History of Past illness Narrative* Problem Noted Date Resolved Date PFO (patent foramen ovale) 01/23/202012/25 TIA (transient ischemic attack) 01/16/2019 03/10/2019 documented as of this encounter (statuses as of 02/06/2023) [address]20-2020 History of Past illness Narrative* Problem Noted Date Resolved Date PFO (patent foramen ovale) 01/23/202012/25 TIA (transient ischemic attack) 01/16/2019 03/10/2019 documented as of this encounter (statuses as of 02/16/2023) [address]20-2020 History of Past illness Narrative* Problem Noted Date Resolved Date PFO (patent foramen ovale) 01/23/202012/25 TIA (transient ischemic attack) 01/16/2019 03/10/2019 documented as of this encounter (statuses as of 02/16/2023) [address]20-2020 History of Past illness Narrative* Problem Noted Date Resolved Date PFO (patent foramen ovale) 01/23/202012/25 TIA (transient ischemic attack) 01/16/2019 03/10/2019 documented as of this encounter (statuses as of 02/19/2023) [address]20-2020 History of Past illness Narrative* Problem Noted Date Resolved Date PFO (patent foramen ovale) 01/23/202012/25 TIA (transient ischemic attack) 01/16/2019 03/10/2019 documented as of this encounter (statuses as of 03/06/2023) [address]20-2020 History of Past illness Narrative* Problem Noted Date Resolved Date PFO (patent foramen ovale) 01/23/202012/25 TIA (transient ischemic attack) 01/16/2019 03/10/2019 documented as of this encounter (statuses as of 03/27/2023) [address]20-2020 History of Past illness Narrative* Problem Noted Date Resolved Date PFO (patent foramen ovale) 01/23/202012/25 TIA (transient ischemic attack) 01/16/2019 03/10/2019 documented as of this encounter (statuses as of 04/10/2023) [address]20-2020 History of Past illness Narrative* Problem Noted Date Diagnosed Date Resolved Date PFO (patent foramen ovale) 01/23/2020 0 12/25/2022 TIA (transient ischemic attack) 01/16/2019 03/10/2019 documented as of this encounter (statuses as of 01/02/2024) [address]20-2020 History of Past illness Narrative* Problem Noted Date Diagnosed Date Resolved Date PFO (patent foramen ovale) 01/23/2020 0 12/25/2022 TIA (transient ischemic attack) 01/16/2019 03/10/2019 documented as of this encounter (statuses as of 01/04/2024) [address]20-2020 History of Past illness Narrative* Problem Noted Date Diagnosed Date Resolved Date PFO (patent foramen ovale) 01/23/2020 0 12/25/2022 TIA (transient ischemic attack) 01/16/2019 03/10/2019 documented as of this encounter (statuses as of 01/06/2024) [address]20-2020 History of Past illness Narrative* Problem Noted Date Diagnosed Date Resolved Date PFO (patent foramen ovale) 01/23/2020 0 12/25/2022 TIA (transient ischemic attack) 01/16/2019 03/10/2019 documented as of this encounter (statuses as of 01/10/2024) [address]20-2020 History of Past illness Narrative* Problem Noted Date Diagnosed Date Resolved Date PFO (patent foramen ovale) 01/23/2020 0 12/25/2022 TIA (transient ischemic attack) 01/16/2019 03/10/2019 documented as of this encounter (statuses as of 01/10/2024) [address]14-2019 History of Past illness Narrative* Problem Noted Date Resolved Date TIA (transient ischemic attack) 01/16/2019 03/10/2019 documented as of this encounter (statuses as of 02/18/2022) [address]14-2019 History of Past illness Narrative* Problem Noted Date Resolved Date TIA (transient ischemic attack) 01/16/2019 03/10/2019 documented as of this encounter (statuses as of 03/01/2022) [address]14-2019 History of Past illness Narrative* Problem Noted Date Resolved Date TIA (transient ischemic attack) 01/16/2019 03/10/2019 documented as of this encounter (statuses as of 03/03/2022) [address]14-2019 History of Past illness Narrative* Problem Noted Date Resolved Date TIA (transient ischemic attack) 01/16/2019 03/10/2019 documented as of this encounter (statuses as of 03/14/2022) [address]14-2019 History of Past illness Narrative* Problem Noted Date Resolved Date TIA (transient ischemic attack) 01/16/2019 03/10/2019 documented as of this encounter (statuses as of 03/16/2022) [address]14-2019 History of Past illness Narrative* Problem Noted Date Resolved Date TIA (transient ischemic attack) 01/16/2019 03/10/2019 documented as of this encounter (statuses as of 04/04/2022) [address]14-2019 History of Past illness Narrative* Problem Noted Date Resolved Date TIA (transient ischemic attack) 01/16/2019 03/10/2019 documented as of this encounter (statuses as of 05/08/2022) [address]14-2019 History of Past illness Narrative* Problem Noted Date Resolved Date TIA (transient ischemic attack) 01/16/2019 03/10/2019 documented as of this encounter (statuses as of 06/14/2022) [address]14-2019 History of Past illness Narrative* Problem Noted Date Resolved Date TIA (transient ischemic attack) 01/16/2019 03/10/2019 documented as of this encounter (statuses as of 06/16/2022) [address]14-2019 History of Past illness Narrative* Problem Noted Date Resolved Date TIA (transient ischemic attack) 01/16/2019 03/10/2019 documented as of this encounter (statuses as of 07/03/2022) [address]14-2019 History of Past illness Narrative* Problem Noted Date Resolved Date TIA (transient ischemic attack) 01/16/2019 03/10/2019 documented as of this encounter (statuses as of 07/12/2022) [address]14-2019 History of Past illness Narrative* Problem Noted Date Resolved Date TIA (transient ischemic attack) 01/16/2019 03/10/2019 documented as of this encounter (statuses as of 07/17/2022) [address]14-2019 History of Past illness Narrative* Problem Noted Date Resolved Date TIA (transient ischemic attack) 01/16/2019 03/10/2019 documented as of this encounter (statuses as of 07/21/2022) [address]14-2019 History of Past illness Narrative* Problem Noted Date Resolved Date TIA (transient ischemic attack) 01/16/2019 03/10/2019 documented as of this encounter (statuses as of 08/03/2022) [address]14-2019 History of Past illness Narrative* Problem Noted Date Resolved Date TIA (transient ischemic attack) 01/16/2019 03/10/2019 documented as of this encounter (statuses as of 08/12/2022) [address]14-2019 History of Past illness Narrative* Problem Noted Date Resolved Date TIA (transient ischemic attack) 01/16/2019 03/10/2019 documented as of this encounter (statuses as of 08/29/2022) [address]14-2019 History of Past illness Narrative* Problem Noted Date Resolved Date TIA (transient ischemic attack) 01/16/2019 03/10/2019 documented as of this encounter (statuses as of 09/06/2022) [address]14-2019 History of Past illness Narrative* Problem Noted Date Resolved Date TIA (transient ischemic attack) 01/16/2019 03/10/2019 documented as of this encounter (statuses as of 09/09/2022) [address]14-2019 History of Past illness Narrative* Problem Noted Date Resolved Date TIA (transient ischemic attack) 01/16/2019 03/10/2019 documented as of this encounter (statuses as of 09/29/2022) [address]14-2019 History of Past illness Narrative* Problem Noted Date Resolved Date TIA (transient ischemic attack) 01/16/2019 03/10/2019 documented as of this encounter (statuses as of 10/23/2022) [address]14-2019 History of Past illness Narrative* Problem Noted Date Resolved Date TIA (transient ischemic attack) 01/16/2019 03/10/2019 documented as of this encounter (statuses as of 10/24/2022) [address]14-2019 History of Past illness Narrative* Problem Noted Date Resolved Date TIA (transient ischemic attack) 01/16/2019 03/10/2019 documented as of this encounter (statuses as of 11/05/2022) [address]14-2019 History of Past illness Narrative* Problem Noted Date Resolved Date TIA (transient ischemic attack) 01/16/2019 03/10/2019 documented as of this encounter (statuses as of 11/13/2022) [address]14-2019 History of Past illness Narrative* Problem Noted Date Resolved Date TIA (transient ischemic attack) 01/16/2019 03/10/2019 documented as of this encounter (statuses as of 11/15/2022) [address]14-2019 History of Past illness Narrative* Problem Noted Date Resolved Date TIA (transient ischemic attack) 01/16/2019 03/10/2019 documented as of this encounter (statuses as of 11/19/2022) [address]14-2019 History of Past illness Narrative* Problem Noted Date Resolved Date TIA (transient ischemic attack) 01/16/2019 03/10/2019 documented as of this encounter (statuses as of 11/20/2022) [address]14-2019 History of Past illness Narrative* Problem Noted Date Resolved Date TIA (transient ischemic attack) 01/16/2019 03/10/2019 documented as of this encounter (statuses as of 11/28/2022) [address]14-2019 History of Past illness Narrative* Problem Noted Date Resolved Date TIA (transient ischemic attack) 01/16/2019 03/10/2019 documented as of this encounter (statuses as of 12/10/2022) [facility]03-14-2019 History of Past illness Narrative* Problem Noted Date Resolved Date TIA (transient ischemic attack) 01/16/2019 03/10/2019 documented as of this encounter (statuses as of 12/15/2022) [facility] History of Past illness Narrative* Problem Noted Date Resolved Date TIA (transient ischemic attack) 01/16/2019 03/10/2019 documented as of this encounter (statuses as of 12/22/2022) [facility] Diagnosis Dermatitis- Primary Contact dermatitis and other eczema, due to unspecified cause Chronic right shoulder pain Pain in joint, shoulder region [facility] Diagnosis Cryptogenic stroke (HCC) Unspecified cerebral artery occlusion with cerebral infarction [facility] Diagnosis Pre-operative cardiovascular examination- Primary Essential hypertension Unspecified essential hypertension Mixed hyperlipidemia PFO (patent foramen ovale) Ostium secundum type atrial septal defect Cerebrovascular accident (CVA), unspecified mechanism (HCC) [facility] Diagnosis Cryptogenic stroke (HCC) Unspecified cerebral artery occlusion with cerebral infarction [facility] Diagnosis Encounter for screening mammogram for breast cancer [facility] Diagnosis History of stroke- Primary Transient ischemic attack (TIA), and cerebral infarction without residual deficits Essential hypertension Unspecified essential hypertension PFO (patent foramen ovale) Ostium secundum type atrial septal defect Mixed hyperlipidemia [facility] [place] [facility] Diagnosis Diabetes mellitus (HCC) Type II or unspecified type diabetes mellitus without mention of complication, not stated as uncontrolled Acquired hypothyroidism Unspecified hypothyroidism [facility] Diagnosis Cryptogenic stroke (HCC)- Primary Unspecified cerebral artery occlusion with cerebral infarction [facility] Diagnosis Homonymous hemianopsia, left- Primary Occipital stroke (HCC) Unspecified cerebral artery occlusion with cerebral infarction Type 2 diabetes mellitus without retinopathy (HCC) Type II or unspecified type diabetes mellitus without mention of complication, not stated as uncontrolled Presbyopia [facility] Diagnosis Essential hypertension- Primary Unspecified essential hypertension Type 2 diabetes mellitus without complication, without long-term current use of insulin (HCC) [facility] Diagnosis PFO (patent foramen ovale)- Primary Ostium secundum type atrial septal defect Primary hypertension Unspecified essential hypertension Mixed hyperlipidemia 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, unspecified blood vessel laterality (HCC) [facility] Diagnosis Primary hypertension- Primary Unspecified essential hypertension [facility] Diagnosis Cryptogenic stroke (HCC)- Primary Unspecified cerebral artery occlusion with cerebral infarction [facility] Diagnosis Suspected COVID-19 virus infection- Primary Acute maxillary sinusitis, recurrence not specified [facility] Diagnosis Cryptogenic stroke (HCC)- Primary Unspecified cerebral artery occlusion with cerebral infarction documented in this encounter [facility] noteNo assessment information availableWKettering Health Pre[facility] Work Phone: Evaluation note* Diagnosis Type 2 diabetes mellitus without complication, without long-term current use of insulin (HCC) documented in this encounter [facility] note* Diagnosis Cryptogenic stroke (HCC)- Primary Unspecified cerebral artery occlusion with cerebral infarction [facility] Diagnosis PFO (patent foramen ovale)- Primary Ostium secundum type atrial septal defect Primary hypertension Unspecified essential hypertension Hypertension, unspecified type PFO (patent foramen ovale) Ostium secundum type atrial septal defect [facility] Diagnosis Essential hypertension- Primary Unspecified essential hypertension Type 2 diabetes mellitus without complication, without long-term current use of insulin (HCC) PFO (patent foramen ovale) Ostium secundum type atrial septal defect Acquired hypothyroidism Unspecified hypothyroidism History of stroke Transient ischemic attack (TIA), and cerebral infarction without residual deficits Occipital stroke (HCC) Unspecified cerebral artery occlusion with cerebral infarction Visual impairment Unspecified visual loss Leg length discrepancy Unequal leg length (acquired) Encounter for immunization Need for other specified prophylactic vaccination against single bacterial disease Encounter for screening fecal occult blood testing Special screening for malignant neoplasms, colon Screening for HIV (human immunodeficiency virus) Special screening examination for other specified viral diseases PFO (patent foramen ovale) Ostium secundum type [facility] septal defect [facility] Cryptogenic [facility] (HCC)- Primary Unspecified cerebral artery occlusion with cerebral infarction PFO (patent foramen ovale) Ostium secundum type atrial septal defect [facility] Primary hypertension- Primary Unspecified essential hypertension Mixed hyperlipidemia Recurrent cerebrovascular accidents (CVAs) (HCC) [facility]* Diagnosis Cryptogenic stroke (HCC)- Primary Unspecified cerebral artery occlusion with cerebral infarction [facility] Pain in right hip- Primary Pain in joint, pelvic region and thigh [facility] Diagnosis Primary osteoarthritis of right hip- Primary Primary localized osteoarthrosis, pelvic region and thigh Sacroiliitis (HCC) Sacroiliitis, not elsewhere classified Leg length discrepancy Unequal leg length (acquired) [facility] Diagnosis Leg length discrepancy- Primary Unequal leg length (acquired) [facility] Diagnosis PFO (patent foramen ovale)- Primary Ostium secundum type atrial septal defect [facility] Diagnosis Leg length discrepancy- Primary Unequal leg length (acquired) [facility] Diagnosis Essential hypertension Unspecified essential hypertension [facility] Diagnosis NO SHOW- Primary [facility] Diagnosis 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, unspecified blood vessel laterality (HCC)- Primary Type 2 diabetes mellitus without complication, without long-term current use of insulin (HCC) Essential hypertension Unspecified essential hypertension Acquired hypothyroidism Unspecified hypothyroidism Type 2 diabetes mellitus without complication, with no history of insulin use (HCC) Encounter for immunization Need for other specified prophylactic vaccination against single bacterial disease Screening mammogram for breast cancer Encounter for screening fecal occult blood testing Special screening for malignant neoplasms, colon Encounter for screening mammogram for breast cancer Screening for HIV (human immunodeficiency virus) Special screening examination for other specified viral diseases [facility] Encounter for screening mammogram for breast cancer [facility] Diagnosis Type 2 diabetes mellitus without retinopathy (HCC)- Primary Type II or unspecified type diabetes mellitus without mention of complication, not stated as uncontrolled Homonymous hemianopsia, left [facility] Diagnosis Low vision right eye category 1, low vision left eye category 1- Primary Homonymous hemianopsia, left Occipital stroke (HCC) Unspecified cerebral artery occlusion with cerebral infarction Presbyopia documented in this encounter [facility] note* Diagnosis Essential hypertension Unspecified essential hypertension 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, unspecified blood vessel laterality (HCC) [facility]* Diagnosis Type 2 diabetes mellitus without complication, without long-term current use of insulin (HCC) Essential hypertension Unspecified essential hypertension documented in this encounter [facility] note* Diagnosis History of CVA (cerebrovascular accident)- Primary Transient ischemic attack (TIA), and cerebral infarction without residual deficits Primary hypertension Unspecified essential hypertension Mixed hyperlipidemia documented in this encounter [facility] note* Diagnosis Essential hypertension Unspecified essential hypertension documented in this encounter [facility] note* Diagnosis Essential hypertension Unspecified essential hypertension [facility]* Diagnosis Acute cough- Primary URI, acute Acute upper respiratory infections of unspecified site Acute cough [facility]* Diagnosis Acute cough [facility]* Diagnosis Type 2 diabetes mellitus without complication, without long-term current use of insulin (HCC)- Primary Mixed hyperlipidemia documented [facility]* Diagnosis Diabetes mellitus (HCC) Type II or unspecified type diabetes mellitus without mention of complication, not stated as uncontrolled documented in this encounter [facility] note* Diagnosis Type 2 diabetes mellitus without complication, without long-term current use of insulin (HCC)- Primary Mixed hyperlipidemia Essential hypertension Unspecified essential hypertension 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, unspecified blood vessel laterality (HCC) Acquired hypothyroidism Unspecified hypothyroidism Screening mammogram for breast cancer Bereavement reaction Adjustment disorder with depressed mood Oral lesion Other and unspecified diseases of the oral soft tissues Encounter for screening fecal occult blood testing Special screening for malignant neoplasms, colon documented [facility]* Diagnosis Chronic idiopathic urticaria- Primary Idiopathic urticaria Angioedema, initial encounter Adverse food reaction, initial encounter documented in this encounter [facility] note* Diagnosis Essential hypertension Unspecified essential hypertension [facility] Diagnosis 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, unspecified blood vessel laterality (HCC) documented in this encounter [facility] note* Diagnosis PFO (patent foramen ovale) (HCC)- Primary Ostium secundum type atrial septal defect Essential (primary) hypertension Unspecified essential hypertension Mixed hyperlipidemia documented in this encounter [facility] note* Diagnosis History of loop recorder- Primary documented in this encounter [facility] note* Diagnosis Positive fecal occult blood test Nonspecific abnormal finding in stool contents documented in this encounter [facility] for referral (narrative)* Diagnostic Procedure Only (Routine) - Pending Review Specialty Diagnoses / Procedures Referred By Tushar burciaga Referred To Contact [facility] Diagnoses Encounter for screening mammogram for breast cancer Procedures THAD SCREENING W CAMILLA SCREENING DIGITAL BREAST TOMOSYNTHESIS BI SCREENING MAMMOGRAPHY BI 2-VIEW BREAST INC Isabel Sanders MD [address] [place] [address] [place] [address] [facility] [address] [place] [address] Referral ID Status Reason Start Date Expiration Date Visits Requested Visits Authorized [id number] Pending Review Auto-Generat ed Referral 05/03/2022 06/02/2023 1 1 [facility] for referral (narrative)* Outpatient Procedure (Routine) - Pending Review Specialty Diagnoses / Procedures Referred By Tushar burciaga Referred [facility] Diagnoses Primary hypertension Procedures ECHO ECHO TTHRC R-T 2D W/WOM-MODE COMPL SPEC&COLR D Fifi Calderón MD [address] [place] [address] [facility] [place] [address] [place] [id number] Referral ID Status Reason Start Date Expiration Date Visits Requested Visits Authorized [id number] Pending Review Auto-Generat ed Referral 08/02/2022 08/02/2023 1 1 * Outpatient Procedure (Routine) - Authorized Specialty Diagnoses / Procedures Referred By Contac t Referred To Contact [facility] Diagnoses Primary hypertension Procedures ECG COMPLETE ECG ROUTINE ECG W/LEAST 12 LDS W/I&R Fifi Calderón MD [address] [place] [address] [address] Referral ID Status Reason Start Date Expiration Date Visits Requested Visits Authorized [id number] Authorized Auto-Generat ed Referral 08/02/2022 08/02/2023 1 1 [facility] for referral (narrative)* Outpatient Procedure (Routine) - Pending Review Specialty Diagnoses / Procedures Referred By Contac t Referred To [facility] Diagnoses PFO (patent foramen ovale) Primary hypertension Hypertension, unspecified type Procedures ECHO ECHO TTHRC R-T 2D W/WOM-MODE COMPL SPEC&COLR D Fifi Calderón MD [address] [place] [address] [address] Referral ID Status Reason Start Date Expiration Date Visits Requested Visits Authorized [id number] Pending Review Auto-Generat ed Referral 11/19/2022 11/19/2023 1 1 * Outpatient Procedure (Routine) - Authorized Specialty Diagnoses / Procedures Referred By Contac t Referred To Contact [facility] Diagnoses PFO (patent foramen ovale) Primary hypertension Hypertension, unspecified type Procedures ECG COMPLETE ECG ROUTINE ECG W/LEAST 12 LDS W/I&R Fifi Calderón MD [address] [place] [address] [address] Referral ID Status Reason Start Date Expiration Date Visits Requested Visits Authorized [id number] Authorized Auto-Generat ed Referral 11/19/2022 11/19/2023 1 1 [facility] for referral (narrative)* Diagnostic Procedure Only (Routine) - Closed Specialty Diagnoses / Procedures Referred By Tushar t Referred To Contact [facility] Diagnoses Pain in right hip Procedures XR HIP GENERAL 3V PELV/AP/LAT RIGHT RADEX HIP UNILATERAL WITH PELVIS 2-3 VIEWS Brianda Decker PA-C [address] [place] [address] X[facility] Referral ID Status Reason Start Date Expiration Date V isits Requested Visits Authorized [id number] Closed Auto-Generate d Referral 01/29/2023 02/28/2024 1 1 [facility] for referral (narrative)* Diagnostic Procedure Only (Routine) - Pending Review Specialty Diagnoses / Procedures Referred By Tushar burciaga Referred To Contact [facility] Diagnoses Encounter for screening mammogram for breast cancer Procedures THAD SCREENING SCREENING MAMMOGRAPHY BI 2-VIEW BREAST INC Isabel Sanders MD [address] [facility] [place] [address] [facility] [address] [place] [address] Referral ID Status Reason Start Date Expiration Date Visits Requested Visits Authorized [id number] Pending Review Auto-Generat ed Referral 01/08/2024 02/06/2025 1 1 [facility] for visit Narrative* Diagnostic Procedure Only (Routine) - Closed Specialty Diagnoses / Procedures Referred By Tushar burciaga Referred To Contact [facility] Diagnoses Encounter for screening mammogram for breast cancer Procedures THAD SCREENING SCREENING MAMMOGRAPHY BI 2-VIEW BREAST INC Isabel Sanders MD [address] [facility] [address] [facility] [address] [place] [address] Referral ID Status Reason Start Date Expiration Date V isits Requested Visits Authorized [id number] Closed Auto-Generate d Referral 01/08/2024 02/06/[address] Outpatient Procedure (Routine) - Closed Specialty Diagnoses / Procedures Referred By Tushar t Referred To Contact [facility] Diagnoses Positive fecal occult blood test Procedures COLONOSCOPY DIAGNOSTIC COLONOSCOPY FLX DX W/COLLJ SPEC WHEN PFRMD Vadim Teixeira, [employer] [address] [facility] [place] [address] Phone: tel: fax: [facility] [address] [place] [address] Referral ID Status Reason Start Date Expiration Date V isits Requested Visits Authorized [id number] Closed Auto-Generate d Referral 02/23/2025 11/04/[address] 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 Advance Directive(s) 08/15/2019 8:36 AM Advance Directive(s) 01/16/2019 6:26 PM Advance Directive Response Recorded Date/ Time Living Will No October 22 2 022 8:53pm Power of Manager Nursing Home No October 22, 2022 8:53pm Reason for Referral Specialty Diagnoses / Procedures Referred By Tushar t Referred To Contact Cardiology Diagnoses PFO (patent foramen ovale) Procedures CONSULT TO CARDIOLOGY OFFICE/OUTPATIENT [facility] MDM 60-74 MINUTES Merari Camarillo MD [address] [facility] [place] [address] Referral ID Status Reason Start Date Expiration Date Visits Requested Visits Authorized [id number] Authorized PCP Requested Referral 06/14/2022 06/14/2023 1 1 Specialty Diagnoses / Procedures Referred By Tushar t Referred To Contact [facility] Diagnoses Leg length discrepancy Procedures CONSULT TO PHYSICAL THERAPY PHYSICAL THERAPY EVALUATION HIGH COMPLEX 45 MINS Isabel Davenport MD [address] [facility] [place] [address] [facility] [address] [address] Referral ID Status Reason Start Date Expiration Date Visits Requested Visits Authorized [id number] Pending Review Auto-Generat ed Referral 11/20/2022 11/20/2023 1 1 Specialty Diagnoses / Procedures Referred By Contac t Referred To Contact Hematology Diagnoses Recurrent cerebrovascular accidents (CVAs) (HCC) Procedures CONSULT TO HEMATOLOGY OFFICE/OUTPATIENT [facility] HIGH MDM 60-74 MINUTES Merari Camarillo MD [address] [place] [address] [place] [address] Referral ID Status Reason Start Date Expiration Date Visits Requested Visits Authorized [id number] Authorized PCP Requested Referral 12/25/2022 12/25/2023 1 1 Specialty Diagnoses / Procedures Referred By Contac t Referred To Contact [facility] Diagnoses Leg length discrepancy Procedures PT REHAB FOLLOW UP ORDER THERAPEUTIC EXERCISES RE, EA 15 MIN. Johny Flores, PT [address] [place] [id number] [facility] [address] [address] Referral ID Status Reason Start Date Expiration Date Visits Requested Visits Authorized [id number] Pending Review PCP Requested Referral Auto-Generate d Referral 03/06/2023 06/04/2023 1 1 Health Concerns Infection Onset Date Last Indicated Resolved Time COVID-19 Rule-Out 09/05/2022 09/05/2022 09/06/2022 5:21 AM EDT Chief Complaint and Reason for Visit Chief Complaint DIZZINESS Additional Source Comments INFORMATION SOURCE (unrecogn ized section and content) DATE CREATED AUTHOR 01/19/2019 [facility] DATE CREATED AUTHOR AUTHOR'S ORGANIZ ATION 02/03/2019 [facility] DATE CREATED AUTHOR AUTHOR'S ORGANIZ ATION 03/07/2019 [facility] DATE CREATED AUTHOR AUTHOR'S ORGANIZ ATION 09/13/2022 [facility] DATE CREATED AUTHOR AUTHOR'S ORGANIZ ATION 02/24/2025 [facility] DATE CREATED AUTHOR AUTHOR'S ORGANIZ ATION 03/15/2025 [facility] DATE CREATED AUTHOR AUTHOR'S ORGANCISCO ATION 04/06/2025 [facility] Source Comments (unrecognize d section and content) In the event this informatio n is protected by the Federal Confidentiality of Alcohol and Drug Abuse Patient Records regulations: The Federal rules restrict any use of the information to criminally investigate or prosecute any alcohol or drug abuse patient.[facility] the event this information is protected by the Federal Confidentiality of Alcohol and Drug Abuse Patient Records regulations: The Federal rules restrict any use of the information to criminally investigate or prosecute any alcohol or drug abuse patient.[facility] the event this information is protected by the Federal Confidentiality of Alcohol and Drug Abuse Patient Records regulations: The Federal rules restrict any use of the information to criminally investigate or prosecute any alcohol or drug abuse patient.[facility] the event this information is protected by the Federal Confidentiality of Alcohol and Drug Abuse Patient Records regulations: The Federal rules restrict any use of the information to criminally investigate or prosecute any alcohol or drug abuse patient.[facility] the event this information is protected by the Federal Confidentiality of Alcohol and Drug Abuse Patient Records regulations: The Federal rules restrict any use of the information to criminally investigate or prosecute any alcohol or drug abuse patient.[facility] the event this information is protected by the Federal Confidentiality of Alcohol and Drug Abuse Patient Records regulations: The Federal rules restrict any use of the information to criminally investigate or prosecute any alcohol or drug abuse patient.[facility] the event this information is protected by the Federal Confidentiality of Alcohol and Drug Abuse Patient Records regulations: The Federal rules restrict any use of the information to criminally investigate or prosecute any alcohol or drug abuse patient.[facility] the event this information is protected by the Federal Confidentiality of Alcohol and Drug Abuse Patient Records regulations: The Federal rules restrict any use of the information to criminally investigate or prosecute any alcohol or drug abuse patient.[facility] the event this information is protected by the Federal Confidentiality of Alcohol and Drug Abuse Patient Records regulations: The Federal rules restrict any use of the information to criminally investigate or prosecute any alcohol or drug abuse patient.[facility] the event this information is protected by the Federal Confidentiality of Alcohol and Drug Abuse Patient Records regulations: The Federal rules restrict any use of the information to criminally investigate or prosecute any alcohol or drug abuse patient.[facility] the event this information is protected by the Federal Confidentiality of Alcohol and Drug Abuse Patient Records regulations: The Federal rules restrict any use of the information to criminally investigate or prosecute any alcohol or drug abuse patient.[facility] the event this information is protected by the Federal Confidentiality of Alcohol and Drug Abuse Patient Records regulations: The Federal rules restrict any use of the information to criminally investigate or prosecute any alcohol or drug abuse patient.[facility] the event this information is protected by the Federal Confidentiality of Alcohol and Drug Abuse Patient Records regulations: The Federal rules restrict any use of the information to criminally investigate or prosecute any alcohol or drug abuse patient.[facility] the event this information is protected by the Federal Confidentiality of Alcohol and Drug Abuse Patient Records regulations: The Federal rules restrict any use of the information to criminally investigate or prosecute any alcohol or drug abuse patient.[facility] the event this information is protected by the Federal Confidentiality of Alcohol and Drug Abuse Patient Records regulations: The Federal rules restrict any use of the information to criminally investigate or prosecute any alcohol or drug abuse patient.[facility] the event this information is protected by the Federal Confidentiality of Alcohol and Drug Abuse Patient Records regulations: The Federal rules restrict any use of the information to criminally investigate or prosecute any alcohol or drug abuse patient.[facility] the event this information is protected by the Federal Confidentiality of Alcohol and Drug Abuse Patient Records regulations: The Federal rules restrict any use of the information to criminally investigate or prosecute any alcohol or drug abuse patient.[facility] Center[facility] the event this information is protected by the Federal Confidentiality of Alcohol and Drug Abuse Patient Records regulations: The Federal rules restrict any use of the information to criminally investigate or prosecute any alcohol or drug abuse patient.[facility] the event this information is protected by the Federal Confidentiality of Alcohol and Drug Abuse Patient Records regulations: The Federal rules restrict any use of the information to criminally investigate or prosecute any alcohol or drug abuse patient.[facility] the event this information is protected by the Federal Confidentiality of Alcohol and Drug Abuse Patient Records regulations: The Federal rules restrict any use of the information to criminally investigate or prosecute any alcohol or drug abuse patient.[facility] the event this information is protected by the Federal Confidentiality of Alcohol and Drug Abuse Patient Records regulations: The Federal rules restrict any use of the information to criminally investigate or prosecute any alcohol or drug abuse patient.[facility] Center[facility] the event this information is protected by the Federal Confidentiality of Alcohol and Drug Abuse Patient Records regulations: The Federal rules restrict any use of the information to criminally investigate or prosecute any alcohol or drug abuse patient.[facility] Center[facility] the event this information is protected by the Federal Confidentiality of Alcohol and Drug Abuse Patient Records regulations: The Federal rules restrict any use of the information to criminally investigate or prosecute any alcohol or drug abuse patient.[facility] Center[facility] the event this information is protected by the Federal Confidentiality of Alcohol and Drug Abuse Patient Records regulations: The Federal rules restrict any use of the information to criminally investigate or prosecute any alcohol or drug abuse patient.[facility] Center[facility] the event this information is protected by the Federal Confidentiality of Alcohol and Drug Abuse Patient Records regulations: The Federal rules restrict any use of the information to criminally investigate or prosecute any alcohol or drug abuse patient.[facility] the event this information is protected by the Federal Confidentiality of Alcohol and Drug Abuse Patient Records regulations: The Federal rules restrict any use of the information to criminally investigate or prosecute any alcohol or drug abuse patient.[facility] CenterIn the event this information is protected by the Federal Confidentiality of Alcohol and Drug Abuse Patient Records regulations: The Federal rules restrict any use of the information to criminally investigate or prosecute any alcohol or drug abuse patient.[facility] Center[facility] the event this information is protected by the Federal Confidentiality of Alcohol and Drug Abuse Patient Records regulations: The Federal rules restrict any use of the information to criminally investigate or prosecute any alcohol or drug abuse patient.[facility] CenterIn the event this information is protected by the Federal Confidentiality of Alcohol and Drug Abuse Patient Records regulations: The Federal rules restrict any use of the information to criminally investigate or prosecute any alcohol or drug abuse patient.[facility] CenterIn the event this information is protected by the Federal Confidentiality of Alcohol and Drug Abuse Patient Records regulations: The Federal rules restrict any use of the information to criminally investigate or prosecute any alcohol or drug abuse patient.[facility] Center[facility] the event this information is protected by the Federal Confidentiality of Alcohol and Drug Abuse Patient Records regulations: The Federal rules restrict any use of the information to criminally investigate or prosecute any alcohol or drug abuse patient.[facility] CenterIn the event this information is protected by the Federal Confidentiality of Alcohol and Drug Abuse Patient Records regulations: The Federal rules restrict any use of the information to criminally investigate or prosecute any alcohol or drug abuse patient.[facility] CenterIn the event this information is protected by the Federal Confidentiality of Alcohol and Drug Abuse Patient Records regulations: The Federal rules restrict any use of the information to criminally investigate or prosecute any alcohol or drug abuse patient.[facility] CenterIn the event this information is protected by the Federal Confidentiality of Alcohol and Drug Abuse Patient Records regulations: The Federal rules restrict any use of the information to criminally investigate or prosecute any alcohol or drug abuse patient.[facility] CenterIn the event this information is protected by the Federal Confidentiality of Alcohol and Drug Abuse Patient Records regulations: The Federal rules restrict any use of the information to criminally investigate or prosecute any alcohol or drug abuse patient.[facility] CenterIn the event this information is protected by the Federal Confidentiality of Alcohol and Drug Abuse Patient Records regulations: The Federal rules restrict any use of the information to criminally investigate or prosecute any alcohol or drug abuse patient.[facility] CenterIn the event this information is protected by the Federal Confidentiality of Alcohol and Drug Abuse Patient Records regulations: The Federal rules restrict any use of the information to criminally investigate or prosecute any alcohol or drug abuse patient.[facility] CenterIn the event this information is protected by the Federal Confidentiality of Alcohol and Drug Abuse Patient Records regulations: The Federal rules restrict any use of the information to criminally investigate or prosecute any alcohol or drug abuse patient.[facility] CenterIn the event this information is protected by the Federal Confidentiality of Alcohol and Drug Abuse Patient Records regulations: The Federal rules restrict any use of the information to criminally investigate or prosecute any alcohol or drug abuse patient.[facility] CenterIn the event this information is protected by the Federal Confidentiality of Alcohol and Drug Abuse Patient Records regulations: The Federal rules restrict any use of the information to criminally investigate or prosecute any alcohol or drug abuse patient.[facility] CenterIn the event this information is protected by the Federal Confidentiality of Alcohol and Drug Abuse Patient Records regulations: The Federal rules restrict any use of the information to criminally investigate or prosecute any alcohol or drug abuse patient.[facility] CenterIn the event this information is protected by the Federal Confidentiality of Alcohol and Drug Abuse Patient Records regulations: The Federal rules restrict any use of the information to criminally investigate or prosecute any alcohol or drug abuse patient.[facility] CenterIn the event this information is protected by the Federal Confidentiality of Alcohol and Drug Abuse Patient Records regulations: The Federal rules restrict any use of the information to criminally investigate or prosecute any alcohol or drug abuse patient.St. [facility] CenterIn the event this information is protected by the Federal Confidentiality of Alcohol and Drug Abuse Patient Records regulations: The Federal rules restrict any use of the information to criminally investigate or prosecute any alcohol or drug abuse patient.[facility] CenterIn the event this information is protected by the Federal Confidentiality of Alcohol and Drug Abuse Patient Records regulations: The Federal rules restrict any use of the information to criminally investigate or prosecute any alcohol or drug abuse patient.[facility] CenterIn the event this information is protected by the Federal Confidentiality of Alcohol and Drug Abuse Patient Records regulations: The Federal rules restrict any use of the information to criminally investigate or prosecute any alcohol or drug abuse patient.[facility] CenterIn the event this information is protected by the Federal Confidentiality of Alcohol and Drug Abuse Patient Records regulations: The Federal rules restrict any use of the information to criminally investigate or prosecute any alcohol or drug abuse patient.[facility] CenterIn the event this information is protected by the Federal Confidentiality of Alcohol and Drug Abuse Patient Records regulations: The Federal rules restrict any use of the information to criminally investigate or prosecute any alcohol or drug abuse patient.[facility] CenterIn the event this information is protected by the Federal Confidentiality of Alcohol and Drug Abuse Patient Records regulations: The Federal rules restrict any use of the information to criminally investigate or prosecute any alcohol or drug abuse patient.[facility] CenterIn the event this information is protected by the Federal Confidentiality of Alcohol and Drug Abuse Patient Records regulations: The Federal rules restrict any use of the information to criminally investigate or prosecute any alcohol or drug abuse patient.[facility] CenterIn the event this information is protected by the Federal Confidentiality of Alcohol and Drug Abuse Patient Records regulations: The Federal rules restrict any use of the information to criminally investigate or prosecute any alcohol or drug abuse patient.[facility] CenterIn the event this information is protected by the Federal Confidentiality of Alcohol and Drug Abuse Patient Records regulations: The Federal rules restrict any use of the information to criminally investigate or prosecute any alcohol or drug abuse patient.[facility] CenterIn the event this information is protected by the Federal Confidentiality of Alcohol and Drug Abuse Patient Records regulations: The Federal rules restrict any use of the information to criminally investigate or prosecute any alcohol or drug abuse patient.[facility] CenterIn the event this information is protected by the Federal Confidentiality of Alcohol and Drug Abuse Patient Records regulations: The Federal rules restrict any use of the information to criminally investigate or prosecute any alcohol or drug abuse patient.[facility] CenterIn the event this information is protected by the Federal Confidentiality of Alcohol and Drug Abuse Patient Records regulations: The Federal rules restrict any use of the information to criminally investigate or prosecute any alcohol or drug abuse patient.[facility] CenterIn the event this information is protected by the Federal Confidentiality of Alcohol and Drug Abuse Patient Records regulations: The Federal rules restrict any use of the information to criminally investigate or prosecute any alcohol or drug abuse patient.[facility] CenterIn the event this information is protected by the Federal Confidentiality of Alcohol and Drug Abuse Patient Records regulations: The Federal rules restrict any use of the information to criminally investigate or prosecute any alcohol or drug abuse patient.[facility] CenterIn the event this information is protected by the Federal Confidentiality of Alcohol and Drug Abuse Patient Records regulations: The Federal rules restrict any use of the information to criminally investigate or prosecute any alcohol or drug abuse patient.[facility] CenterIn the event this information is protected by the Federal Confidentiality of Alcohol and Drug Abuse Patient Records regulations: The Federal rules restrict any use of the information to criminally investigate or prosecute any alcohol or drug abuse patient.[facility] CenterIn the event this information is protected by the Federal Confidentiality of Alcohol and Drug Abuse Patient Records regulations: The Federal rules restrict any use of the information to criminally investigate or prosecute any alcohol or drug abuse patient.[facility] CenterIn the event this information is protected by the Federal Confidentiality of Alcohol and Drug Abuse Patient Records regulations: The Federal rules restrict any use of the information to criminally investigate or prosecute any alcohol or drug abuse patient.[facility] CenterIn the event this information is protected by the Federal Confidentiality of Alcohol and Drug Abuse Patient Records regulations: The Federal rules restrict any use of the information to criminally investigate or prosecute any alcohol or drug abuse patient.[facility] CenterIn the event this information is protected by the Federal Confidentiality of Alcohol and Drug Abuse Patient Records regulations: The Federal rules restrict any use of the information to criminally investigate or prosecute any alcohol or drug abuse patient.[facility] CenterIn the event this information is protected by the Federal Confidentiality of Alcohol and Drug Abuse Patient Records regulations: The Federal rules restrict any use of the information to criminally investigate or prosecute any alcohol or drug abuse patient.[facility] CenterIn the event this information is protected by the Federal Confidentiality of Alcohol and Drug Abuse Patient Records regulations: The Federal rules restrict any use of the information to criminally investigate or prosecute any alcohol or drug abuse patient.[facility] CenterIn the event this information is protected by the Federal Confidentiality of Alcohol and Drug Abuse Patient Records regulations: The Federal rules restrict any use of the information to criminally investigate or prosecute any alcohol or drug abuse patient.[facility] CenterIn the event this information is protected by the Federal Confidentiality of Alcohol and Drug Abuse Patient Records regulations: The Federal rules restrict any use of the information to criminally investigate or prosecute any alcohol or drug abuse patient.[facility] CenterIn the event this information is protected by the Federal Confidentiality of Alcohol and Drug Abuse Patient Records regulations: The Federal rules restrict any use of the information to criminally investigate or prosecute any alcohol or drug abuse patient.[facility] CenterIn the event this information is protected by the Federal Confidentiality of Alcohol and Drug Abuse Patient Records regulations: The Federal rules restrict any use of the information to criminally investigate or prosecute any alcohol or drug abuse patient.[facility] CenterIn the event this information is protected by the Federal Confidentiality of Alcohol and Drug Abuse Patient Records regulations: The Federal rules restrict any use of the information to criminally investigate or prosecute any alcohol or drug abuse patient.[facility] CenterIn the event this information is protected by the Federal Confidentiality of Alcohol and Drug Abuse Patient Records regulations: The Federal rules restrict any use of the information to criminally investigate or prosecute any alcohol or drug abuse patient.[facility] CenterIn the event this information is protected by the Federal Confidentiality of Alcohol and Drug Abuse Patient Records regulations: The Federal rules restrict any use of the information to criminally investigate or prosecute any alcohol or drug abuse patient.[facility] CenterIn the event this information is protected by the Federal Confidentiality of Alcohol and Drug Abuse Patient Records regulations: The Federal rules restrict any use of the information to criminally investigate or prosecute any alcohol or drug abuse patient.[facility] CenterIn the event this information is protected by the Federal Confidentiality of Alcohol and Drug Abuse Patient Records regulations: The Federal rules restrict any use of the information to criminally investigate or prosecute any alcohol or drug abuse patient.[facility] CenterIn the event this information is protected by the Federal Confidentiality of Alcohol and Drug Abuse Patient Records regulations: The Federal rules restrict any use of the information to criminally investigate or prosecute any alcohol or drug abuse patient.[facility] CenterIn the event this information is protected by the Federal Confidentiality of Alcohol and Drug Abuse Patient Records regulations: The Federal rules restrict any use of the information to criminally investigate or prosecute any alcohol or drug abuse patient.[facility] CenterIn the event this information is protected by the Federal Confidentiality of Alcohol and Drug Abuse Patient Records regulations: The Federal rules restrict any use of the information to criminally investigate or prosecute any alcohol or drug abuse patient.[facility] CenterIn the event this information is protected by the Federal Confidentiality of Alcohol and Drug Abuse Patient Records regulations: The Federal rules restrict any use of the information to criminally investigate or prosecute any alcohol or drug abuse patient.[facility] CenterIn the event this information is protected by the Federal Confidentiality of Alcohol and Drug Abuse Patient Records regulations: The Federal rules restrict any use of the information to criminally investigate or prosecute any alcohol or drug abuse patient.[facility] CenterIn the event this information is protected by the Federal Confidentiality of Alcohol and Drug Abuse Patient Records regulations: The Federal rules restrict any use of the information to criminally investigate or prosecute any alcohol or drug abuse patient.[facility] CenterIn the event this information is protected by the Federal Confidentiality of Alcohol and Drug Abuse Patient Records regulations: The Federal rules restrict any use of the information to criminally investigate or prosecute any alcohol or drug abuse patient.[facility] CenterIn the event this information is protected by the Federal Confidentiality of Alcohol and Drug Abuse Patient Records regulations: The Federal rules restrict any use of the information to criminally investigate or prosecute any alcohol or drug abuse patient.[facility] CenterIn the event this information is protected by the Federal Confidentiality of Alcohol and Drug Abuse Patient Records regulations: The Federal rules restrict any use of the information to criminally investigate or prosecute any alcohol or drug abuse patient.[facility] CenterIn the event this information is protected by the Federal Confidentiality of Alcohol and Drug Abuse Patient Records regulations: The Federal rules restrict any use of the information to criminally investigate or prosecute any alcohol or drug abuse patient.[facility] CenterIn the event this information is protected by the Federal Confidentiality of Alcohol and Drug Abuse Patient Records regulations: The Federal rules restrict any use of the information to criminally investigate or prosecute any alcohol or drug abuse patient.[facility] CenterIn the event this information is protected by the Federal Confidentiality of Alcohol and Drug Abuse Patient Records regulations: The Federal rules restrict any use of the information to criminally investigate or prosecute any alcohol or drug abuse patient.[facility] Reason for Visit (unrecogniz ed section and content) Reason Comments Pain (RT) rotator cuff te ar Dx, pain rated 7, PM 10 Insect Bite possible bug bite (R T) shoulder Reason Comments Cardiac Clearance Reason Comments Remote Pacemaker Follow Up Reason Comments Cardiac Clearance ortho surgery Reason Comments Remote ILR Follow Up Reason Comments CARD Follow Up 6 Month HLD Reason Comments Diabetes Reason Comments Orders Reason Comments Cardiology Follow Up PFO closure eval Reason Comments Cough drainage, sore throa t, ear pain and sob x 6 days Reason Comments Received Outside Medical Records [facility] Reason Comments Refill Request Reason Onset Date Comments Refill Request 11/10/2022 Reason Comments Follow Up Diabetes right hip p ain. Reason Comments Education Of Patient/family Reason Comments CARD Follow Up 6 Month Hx stroke Reason Comments Patient Question Asked why appointmen t Dr. Duffy Reason Comments New Pain Reason Comments Physical Therapy Specialty Diagnoses / Procedures Referred By Contac t Referred To Contact Physical Therapy / PHYSICAL THERAPY Diagnoses Leg length discrepancy [M21.70] Procedures NEW RS PT ORTH Toan Cortez MD [address] [place] [address] Johny Flores, PT [address] [place] [address] Referral ID Status Reason Start Date Expiration Date V isits Requested Visits Authorized [id number] Authorized 11/05/2022 11/04/2023 30 30 Reason Comments PT Progress Note Specialty Diagnoses / Procedures Referred By Contac t Referred To Contact Physical Therapy / PHYSICAL THERAPY Diagnoses Leg length discrepancy [M21.70] Procedures NEW RS PT ORTH Toan Cortez MD [address] [place] [address] Johny Flores, PT [address] [place] [address] Reason Comments Received Outside Medical Records [facility] Emergency Department Summary 03/25/2023 Reason Onset Date Comments Refill Request 12/30/2023 Reason Comments Patient Question Reason Comments Follow Up Reason Comments Results Reason Comments Yearly Exam Reason Comments Low vision-evaluation Reason Onset Date Comments Refill Request 05/11/2024 Reason Comments Cardiology Follow Up Hypertension Reason Comments Cough Cough, chest congest ion, head congestion, fever and light-headed x 2 days Reason Comments Results COVID+ Reason Comments 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 [place] Reason Comments Hives Possible hives to li ps Reason Comments Received Outside Medical Records [employer] Certification of Health Care provider for employees serious health condition 02/03/2025 Reason Comments Cardiology Follow Up 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 Reason Comments Preparations For Procedures Reason Comments Appointment Reason Comments Patient Update Care Teams (unrecognized sec tion and content) Reservation Clerk Relationship Specialty Start Date End Date Isabel Davenport MD [address] [place] [address] PCP - General Family Practice 10/25/10 Merari Camarillo MD [address] [facility] [place] [address] [place] [address] Cardiology 03/10/19 Cortez Forrester Jr., MD [address] [facility] [place] [address] [place] [phone] Neurology 03/10/19 Antonio Christina, OD [address] [place] [address] Optometry 03/10/19 Reservation Clerk Relationship Specialty Start Date End Date Isabel Davenport MD [address] [place] [address] PCP - General Family Practice 10/25/10 Merari Camarillo MD [address] [place] [address] [place] [address] Cardiology 03/10/19 Cortez Forrester Jr., MD [address] [facility] [address] [place] [phone] Neurology 03/10/19 Tut, Antonio, OD [address] [place] [address] Optometry 03/10/19 Reservation Clerk Relationship Specialty Start Date End Date Isabel Davenport MD [address] [place] [address] PCP - General Family Practice 10/25/10 Merari Camarillo MD [address] [place] [address] [place] [address] Cardiology 03/10/19 Cortez Forrester Jr., MD [address] [facility] [address] [place] [address] Neurology 03/10/19 [facility], OD [address] [place] [address] Optometry 03/10/19 Reservation Clerk Relationship Specialty Start Date End Date Isabel Davenport MD [address] [place] [address] PCP - General Family Practice 10/25/10 Merari Camarillo MD [address] [place] [address] [place] [address] Cardiology 03/10/19 Cortez Forrester Jr., MD [address] [facility] [address] [place] [address] Neurology 03/10/19 [facility] [address] [place] [address] Optometry 03/10/19 Reservation Clerk Relationship Specialty Start Date End Date Isabel Davenport MD [address] [place] [address] PCP - General Family Practice 10/25/10 Merari Camarillo MD [address] [place] [address] [place] [address] Cardiology 03/10/19 Cortez Forrester Jr., MD [address] [facility] [address] [place] [phone] Neurology 03/10/19 [facility] [address] [place] [address] Optometry 03/10/19 Reservation Clerk Relationship Specialty Start Date End Date Isabel Davenport MD [address] [place] [address] PCP - General Family Practice 10/25/10 Merari Camarillo MD [address] [place] [address] [place] [address] Cardiology 03/10/19 Cortez Forrester Jr., MD [address] [facility] [address] [place] [address] Neurology 03/10/19 Antonio Christina, OD [address] [place] [address] Optometry 03/10/19 Reservation Clerk Relationship Specialty Start Date End Date Isabel Davenport MD [address] [place] [address] PCP - General Family Practice 10/25/10 Merari Camarillo MD [address] [place] [address] [place] [address] Cardiology 03/10/19 Cortez Forrester Jr., MD [address] [facility] [address] [place] [phone] Neurology 03/10/19 [facility] [address] [place] [address] Optometry 03/10/19 Reservation Clerk Relationship Specialty Start Date End Date Isabel Davenport MD [address] [place] [address] PCP - General Family Practice 10/25/10 Merari Camarillo MD [address] [place] [address] [place] [address] Cardiology 03/10/19 Cortez Forrester Jr., MD [address] [facility] [address] [place] [phone] Neurology 03/10/19 [facility] [address] [place] [address] Optometry 03/10/19 Reservation Clerk Relationship Specialty Start Date End Date Isabel Davenport MD [address] [place] [address] PCP - General Family Practice 10/25/10 Merari Camarillo MD [address] [place] [address] [place] [address] Cardiology 03/10/19 Cortez Forrester Jr., MD [address] [facility] [address] [place] [address] Neurology 03/10/19 [facility], OD [address] [place] [address] Optometry 03/10/19 Reservation Clerk Relationship Specialty Start Date End Date Isabel Davenport MD [address] [place] [address] PCP - General Family Medicine 10/25/10 Merari Camarillo MD [address] [place] [address] [place] [address] Cardiology 03/10/19 Cortez Forrester Jr., MD [address] [facility] [address] [place] [address] Neurology 03/10/19 [facility], OD [address] [place] [address] Optometry 03/10/19 Reservation Clerk Relationship Specialty Start Date End Date Isabel Davenport MD [address] [place] [address] PCP - General Family Medicine 10/25/10 Merari Camarillo MD [address] [place] [address] [place] [address] Cardiology 03/10/19 Cortez Forrester Jr., MD [address] [facility] [address] [place] [address] Neurology 03/10/19 [facility], OD [address] [place] [address] Optometry 03/10/19 Reservation Clerk Relationship Specialty Start Date End Date Isabel Davenport MD [address] [place] [address] PCP - General Family Medicine 10/25/10 Merari Camarillo MD [address], [place] [address] [place] [address] Cardiology 03/10/19 Cortez Forrester Jr., MD [address] [phone] Neurology 03/10/19 [facility], OD [address] [place] [address] Optometry 03/10/19 Reservation Clerk Relationship Specialty Start Date End Date Isabel Davenport MD [address] [place] [address] PCP - General Family Medicine 10/25/10 Merari Camarillo MD [address] [place] [address] [place] [address] Cardiology 03/10/19 Cortez Forrester Jr., MD [address] [facility] [address] [place] [address] Neurology 03/10/19 [facility], OD [address] [place] [address] Optometry 03/10/19 Reservation Clerk Relationship Specialty Start Date End Date Isabel Davenport MD [address] [place] [address] PCP - General Family Medicine 10/25/10 Merari Camarillo MD [address] [place] [address] [place] [address] Cardiology 03/10/19 Cortez Forrester Jr., MD [address] [facility] [address] [place] [address] Neurology 03/10/19 [facility], OD [address] [place] [address] Optometry 03/10/19 Reservation Clerk Relationship Specialty Start Date End Date Isabel Davenport MD [address] [place] [address] PCP - General Family Medicine 10/25/10 Merari Camarillo MD [address] [place] [address] [place] [address] Cardiology 03/10/19 Cortez Forrester Jr., MD [address] [facility] [address] [place] [phone] Neurology 03/10/19 [facility], OD [address] [place] [address] Optometry 03/10/19 Reservation Clerk Relationship Specialty Start Date End Date Isabel Davenport MD [address] [place] [address] PCP - General Family Medicine 10/25/10 Merari Camarillo MD [address] [place] [address] [place] [address] Cardiology 03/10/19 Cortez Forrester Jr., MD [address] [facility] [address] [place] [address] Neurology 03/10/19 Antonio Christina, OD [address] [place] [address] Optometry 03/10/19 Reservation Clerk Relationship Specialty Start Date End Date Isabel Davenport MD [address] [place] [address] PCP - General Family Medicine 10/25/10 Merari Camarillo MD [address] [place] [address] [place] [address] Cardiology 03/10/19 Cortez Forrester Jr., MD [address] [facility] [address] [place] [phone] Neurology 03/10/19 Valeriy Christinaon, OD [address] [place] [address] Optometry 03/10/19 Reservation Clerk Relationship Specialty Start Date End Date Isabel Davenport MD [address] [place] [address] PCP - General Family Medicine 10/25/10 Merari Camarillo MD [address] [place] [address] [place] [address] Cardiology 03/10/19 Cortez Forrester Jr., MD [address] [facility] [address] [place] [address] Neurology 03/10/19 J LuisValeriyon, OD [address] [place] [address] Optometry 03/10/19 Reservation Clerk Relationship Specialty Start Date End Date Isabel Davenport MD [address] [place] [address] PCP - General Family Medicine 10/25/10 Merari Camarillo MD [address] [place] [address] [place] [address] Cardiology 03/10/19 Cortez Forrester Jr., MD [address] [phone] Neurology 03/10/19 J LuisAntonio velazquez, OD [address] [place] [address] Optometry 03/10/19 Fifi Calderón MD [address] [facility] [place] [address] Primary Staff Physician Cardiology 11/14/22 Reservation Clerk Relationship Specialty Start Date End Date Isabel Davenport MD [address] [place] [address] PCP - General Family Medicine 10/25/10 Merari Camarillo MD [address] [place] [address] [place] [address] Cardiology 03/10/19 Cortez Forrester Jr., MD [address] [facility] [address] [place] [phone] Neurology 03/10/19 J LuisAntonio velazquez, OD [address] [place] [address] Optometry 03/10/19 Fifi Calderón MD [address] [place] [address] Primary Staff Physician Cardiology 11/14/22 Reservation Clerk Relationship Specialty Start Date End Date Isabel Davenport MD [address] [place] [address] PCP - General Family Medicine 10/25/10 Merari Camarillo MD [address] [place] [address] [place] [address] Cardiology 03/10/19 Cortez Forrester Jr., MD [address] [facility] [place] [address] [place] [phone] Neurology 03/10/19 [facility], OD [address] [place] [address] Optometry 03/10/19 Fifi Calderón MD [address] [place] [address] Primary Staff Physician Cardiology 11/14/22 Reservation Clerk Relationship Specialty Start Date End Date Isabel Davenport MD [address] [place] [address] PCP - General Family Medicine 10/25/10 Merari Camarillo MD [address] [place] [address] [place] [address] Cardiology 03/10/19 Cortez Forrester Jr., MD [address] [facility] [address] [place] [phone] Neurology 03/10/19 [facility] [place], OD [address] [place] [address] Optometry 03/10/19 Fifi Calderón MD [address] [place] [address] Primary Staff Physician Cardiology 11/14/22 Reservation Clerk Relationship Specialty Start Date End Date Isabel Davenport MD [address] [place] [address] PCP - General Family Medicine 10/25/10 Merari Camarillo MD [address], [place] [address] [place] [address] Cardiology 03/10/19 Cortez Forrester Jr., MD [address] [facility] [place] [address] [place] [phone] Neurology 03/10/19 J Luisen, Antonio, OD [address] [place] [address] Optometry 03/10/19 Fifi Calderón MD [address] [place] [address] Primary Staff Physician Cardiology 11/14/22 Reservation Clerk Relationship Specialty Start Date End Date Isabel Davenport MD [address] [place] [address] PCP - General Family Medicine 10/25/10 Merari Camarillo MD [address], [place] [address] [place] [address] Cardiology 03/10/19 Cortez Forrester Jr., MD [address] [facility] [place] [address] [place] [phone] Neurology 03/10/19 [facility], [place], OD [address] [place] [address] Optometry 03/10/19 Fifi Calderón MD [address] [place] [address] Primary Staff Physician Cardiology 11/14/22 Reservation Clerk Relationship Specialty Start Date End Date Isabel Davenport MD [address] [place] [address] PCP - General Family Medicine 10/25/10 Merari Camarillo MD [address], [place] [address] [place] [address] Cardiology 03/10/19 Cortez Forrester Jr., MD [address] [facility] [place] [address] [place] [phone] Neurology 03/10/19 Antonio Christina, OD [address] [place] [address] Optometry 03/10/19 Fifi Calderón MD [address] [place] [address] Primary Staff Physician Cardiology 11/14/22 Reservation Clerk Relationship Specialty Start Date End Date Isabel Davenport MD [address] [place] [address] PCP - General Family Medicine 10/25/10 Merari Camarillo MD [address], [place] [address] [place] [address] Cardiology 03/10/19 Cotrez Forrester Jr., MD [address] [facility] [place] [address] [place] [phone] Neurology 03/10/19 [place], OD [address] [place] [address] Optometry 03/10/19 Fifi Calderón MD [address] [place] [address] Primary Staff Physician Cardiology 11/14/22 Reservation Clerk Relationship Specialty Start Date End Date Isabel Davenport MD [address] [place] [address] PCP - General Family Medicine 10/25/10 Merari Camarillo MD [address], [place] [address] [place] [address] Cardiology 03/10/19 Cortez Forrester Jr., MD [address] [facility] [place] [address] [place] [phone] Neurology 03/10/19 Valeriy Christinaon, OD [address] [place] [address] Optometry 03/10/19 Fifi Calderón MD [address] [place] [address] Primary Staff Physician Cardiology 11/14/22 Reservation Clerk Relationship Specialty Start Date End Date Isabel Davenport MD [address] [place] [address] PCP - General Family Medicine 10/25/10 Merari Camarillo MD [address], [place] [address] [place] [address] Cardiology 03/10/19 Cortez Forrester Jr., MD [address] [facility] [address] [place] [phone] Neurology 03/10/19 Antonio Christina, OD [address] [place] [address] Optometry 03/10/19 Fifi Calderón MD [address] [place] [address] Primary Staff Physician Cardiology 11/14/22 Reservation Clerk Relationship Specialty Start Date End Date Isabel Davenport MD [address] [place] [address] PCP - General Family Medicine 10/25/10 Merari Camarillo MD [address], [place] [address] [place] [address] Cardiology 03/10/19 Cortez Forrester Jr., MD [address] [facility] [place] [address] [place] [phone] Neurology 03/10/19 Antonio Christina, OD [address] [place] [address] Optometry 03/10/19 Fifi Calderón MD [address] [place] [address] Primary Staff Physician Cardiology 11/14/22 Reservation Clerk Relationship Specialty Start Date End Date Isabel Davenport MD [address] [place] [address] PCP - General Family Medicine 10/25/10 Merari Camarillo MD [address], [place] [address] [place] [address] Cardiology 03/10/19 Cortez Forrester Jr., MD [address] [place] [address] [place] [address] Neurology 03/10/19 Antonio Christina, OD [address] [place] [address] Optometry 03/10/19 Fifi Calderón MD [address] [place] [address] Primary Staff Physician Cardiology 11/14/22 Reservation Clerk Relationship Specialty Start Date End Date Isabel Davenport MD [address] [place], [place] 726871 PCP - General Family Medicine 10/25/10 Merari Camarillo MD [address], [place] [address] [place] [address] Cardiology 03/10/19 Cortez Forrester Jr., MD [address] [facility] [place] [address] [place] [address]50[address] Neurology 03/10/19 Antonio Christina, OD [address] [place] [address] Optometry 03/10/19 Fifi Calderón MD [address] [place] [address] Primary Staff Physician Cardiology 11/14/22 Reservation Clerk Relationship Specialty Start Date End Date Isabel Davenport MD [address] [place], [place] 071361 PCP - General Family Medicine 10/25/10 Merari Camarillo MD [address], [place] [address] [place] [address] Cardiology 03/10/19 Cortez Forrester Jr., MD [address] [facility] [address] [place] [phone] Neurology 03/10/19 Antonio Christina, OD [address] [place] [address] Optometry 03/10/19 Fifi Calderón MD [address] [place] [address] Primary Staff Physician Cardiology 11/14/22 Reservation Clerk Relationship Specialty Start Date End Date Isabel Davenport MD [address] [place] [address] PCP - General Family Medicine 10/25/10 Merari Camarillo MD [address], [place] [address] [place] [address] Cardiology 03/10/19 Cortez Forrester Jr., MD [address] [facility] [address] [place] [address] Neurology 03/10/19 Antonio Christina, OD [address] [place] [address] Optometry 03/10/19 Fifi Calderón MD [address] [place] [address] Primary Staff Physician Cardiology 11/14/22 Reservation Clerk Relationship Specialty Start Date End Date Isabel Davenport MD [address] [place] [address] PCP - General Family Medicine 10/25/10 Merari Camarillo MD [address], [place] [address] [place] [address] Cardiology 03/10/19 Cortez Forrester Jr., MD [address] [facility] [address] [place] [phone] Neurology 03/10/19 Antonio Christina, OD [address] [place] [address] Optometry 03/10/19 Fifi Calderón MD [address] [place], [place] 6755295 Primary Staff Physician Cardiology 11/14/22 Reservation Clerk Relationship Specialty Start Date End Date Isabel Davenport MD [address] [place] [address] PCP - General Family Medicine 10/25/10 Merari Camarillo MD 224 [facility], [place] [address] [place] [address] Cardiology 03/10/19 Coretz Forrester Jr., MD [address] [facility] [address] [place] [address] Neurology 03/10/19 Antonio Christina, [address] [place] [address] Optometry 03/10/19 Fifi Calderón MD [address] [place], [place] 4079295 Primary Staff Physician Cardiology 11/14/22 Reservation Clerk Relationship Specialty Start Date End Date Isabel Davenport MD [address] [place], [place] 079131 PCP - General Family Medicine 10/25/10 Merari Camarillo MD [address], [place] [address] [place] [address] Cardiology 03/10/19 Cortez Forrester Jr., MD [address] [facility] [address] [place] [phone] Neurology 03/10/19 Antonio Christina, OD [address] [place] [address] Optometry 03/10/19 Fifi Calderón MD [address] [place] [address] Primary Staff Physician Cardiology 11/14/22 Reservation Clerk Relationship Specialty Start Date End Date Isabel Davenport MD [address] [place] [address] PCP - General Family Medicine 10/25/10 Merari Camarillo MD [address], [place] [address] [place] [address] Cardiology 03/10/19 Cortez Forrester Jr., MD [address] [facility] [address] [place] [phone] Neurology 03/10/19 Antonio Christina, OD [address] [place] [address] Optometry 03/10/19 Fifi Calderón MD [address] [place] [address] Primary Staff Physician Cardiology 11/14/22 Reservation Clerk Relationship Specialty Start Date End Date Isabel Davenport MD [address] [place] [address] PCP - General Family Medicine 10/25/10 Merari Camarillo MD [address], [place] [address] [place] [address] Cardiology 03/10/19 Cortez Forrester Jr., MD [address] [facility] [place] [address] [place] [phone] Neurology 03/10/19 Antonio Christina OD [address] [place] [address] Optometry 03/10/19 Fifi Calderón MD [address] [place] [address] Primary Staff Physician Cardiology 11/14/22 Reservation Clerk Relationship Specialty Start Date End Date Isabel Davenport MD [address] [place] [address] PCP - General Family Medicine 10/25/10 Merari Camarillo MD [address], [place] [address] [place] [address] Cardiology 03/10/19 Cortez Forrester Jr., MD [address] [place] [address] [place] [phone] Neurology 03/10/19 Antonio Christina, OD [address] [place] [address] Optometry 03/10/19 Fifi Calderón MD [address] [place] [address] Primary Staff Physician Cardiology 11/14/22 Reservation Clerk Relationship Specialty Start Date End Date Isabel Davenport MD [address] [place], [place] 882181 PCP - General Family Medicine 10/25/10 Merari Camarillo MD 224 [facility] [place] [address] [place] [address] Cardiology 03/10/19 Cortez Forrester Jr., MD [address] [facility] [address] [place] [phone] Neurology 03/10/19 Antonio Christina, OD [address] [place] [address] Optometry 03/10/19 Fifi Calderón MD [address] [place] [address] Primary Staff Physician Cardiology 11/14/22 Reservation Clerk Relationship Specialty Start Date End Date Isabel Davenport MD [address] [place] [address] PCP - General Family Medicine 10/25/10 Merari Camarillo MD [address], [place] [address] [place] [address] Cardiology 03/10/19 Cortez Forrester Jr., MD [address] [facility] [place] [address] [place] [address]-45[address] Neurology 03/10/19 Antonio Christina, OD [address] [place] [address] Optometry 03/10/19 Fifi Calderón MD [address] [place], [place] 0014695 Primary Staff Physician Cardiology 11/14/22 Reservation Clerk Relationship Specialty Start Date End Date sIabel Davenport MD [address] [place] [address] PCP - General Family Medicine 10/25/10 Merari Camarillo MD [address], [place] [address] [place] [address] Cardiology 03/10/19 Cortez Forrester Jr., MD [address] [facility] [address] [place] [phone] Neurology 03/10/19 Antonio Christina, OD [address] [place] [address] Optometry 03/10/19 Fifi Calderón MD [address] [place], [place] 0453595 Primary Staff Physician Cardiology 11/14/22 Reservation Clerk Relationship Specialty Start Date End Date Isabel Davenport MD [address] [place] [address] PCP - General Family Medicine 10/25/10 Merari Camarillo MD [address], [place] [address] [place] [address] Cardiology 03/10/19 Cortez Forrester Jr., MD [address] [place] [address] [place] [phone] Neurology 03/10/19 Antonio Christina, SABINE [address] [place] [address] Optometry 03/10/19 Fifi Calderón MD [address] [place] [address] Primary Staff Physician Cardiology 11/14/22 Reservation Clerk Relationship Specialty Start Date End Date Isabel Davenport MD [address] [place] [address] PCP - General Family Medicine 10/25/10 Merari Camarillo MD [address], [place] [address] [place] [address] Cardiology 03/10/19 Cortez Forrester Jr., MD [address] [place] [address] [place] [phone] Neurology 03/10/19 Antonio Christina, OD [address] [place] [address] Optometry 03/10/19 Fifi Calderón MD [address] [place] [address] Primary Staff Physician Cardiology 11/14/22 Reservation Clerk Relationship Specialty Start Date End Date Isabel Davenport MD [address] [place] [address] PCP - General Family Medicine 10/25/10 Merari Camarillo MD [address], [place] [address] [place] [address] Cardiology 03/10/19 Cortez Forrester Jr., MD [address] [facility] [place] [address] [place] [phone] Neurology 03/10/19 Antonio Christina, SABINE [address] [place] [address] Optometry 03/10/19 Fifi Calderón MD [address] [place] [address] Primary Staff Physician Cardiology 11/14/22 Reservation Clerk Relationship Specialty Start Date End Date Isabel Davenport MD [address] [place] [address] PCP - General Family Medicine 10/25/10 Merari Camarillo MD [address], [place] [address] [place] [address] Cardiology 03/10/19 Cortez Forrester Jr., MD [address] [facility] [address] [place] [phone] Neurology 03/10/19 Antonio Christina, OD [address] [place] [address] Optometry 03/10/19 Fifi Calderón MD [address] [place], [place] 6409395 Primary Staff Physician Cardiology 11/14/22 Reservation Clerk Relationship Specialty Start Date End Date Isabel Davenport MD [address] [place] [address] PCP - General Family Medicine 10/25/10 Merari Camarillo MD 224 [facility] [place] [address] [place] [address] Cardiology 03/10/19 Cortez Forrester Jr., MD [address] [facility] [address] [place] [phone] Neurology 03/10/19 Antonio Christina, OD [address] [place] [address] Optometry 03/10/19 Fifi Calderón MD [address] [place], [place] 0982895 Primary Staff Physician Cardiology 11/14/22 Vadim Teixeira APRN.SOLUTIONS EXECUTIVE SECURITY [address] [facility] [address] [address] Egg Factory Worker Internal Medicine 10/12/24 Reservation Clerk Relationship Specialty Start Date End Date Isabel Davenport MD [address] [place], [place] 899981 PCP - General Family Medicine 10/25/10 Merari Camarillo MD [address], [place] [address] [place] [address] Cardiology 03/10/19 Cortez Forrester Jr., MD [address] [facility] [address] [place] [address] Neurology 03/10/19 Antonio Christina OD [address] [place] [address] Optometry 03/10/19 Fifi Calderón MD [address] [place] [address] Primary Staff Physician Cardiology 11/14/22 Vadim Teixeira APRN.SOLUTIONS EXECUTIVE SECURITY [address] [facility] [address] [address] Egg Factory Worker Internal Medicine 10/12/24 Reservation Clerk Relationship Specialty Start Date End Date Isabel Davenport MD [address] [place], [place] 089941 PCP - General Family Medicine 10/25/10 Merari Camarillo MD [address], [place] [address] [place] [address] Cardiology 03/10/19 Cortez Forrester Jr., MD [address] [facility] [place] [address] [place] [address] Neurology 03/10/19 Antonio Christina, OD [address] [place] [address] Optometry 03/10/19 Fifi Calderón MD [address] [place], [place] 6388795 Primary Staff Physician Cardiology 11/14/22 Vadim Teixeira APRN.SOLUT[employer] EXECUTIVE SECURITY [address] [facility] [address] [place], [place] [address] Egg Factory Worker Internal Medicine 10/12/24 Reservation Clerk Relationship Specialty Start Date End Date Isabel Davenport MD [address] [place], [place] 034171 PCP - General Family Medicine 10/25/10 Merari Camarillo MD [address] [facility] [place] [address] [place], [place] 76[address]302 Cardiology 03/10/19 Cortez Forrester Jr., MD [address] [facility] [place] [address] [place] [phone] Neurology 03/10/19 Antonio Christina, OD [address] [place] [address] Optometry 03/10/19 Fifi Calderón MD [address] [place] [address] Primary Staff Physician Cardiology 11/14/22 Vadim Teixeira APRN.[employer]UT[employer] EXECUTIVE SECURITY [address] [facility] [place], [place] [address] Egg Factory Worker Internal Medicine 10/12/24 Reservation Clerk Relationship Specialty Start Date End Date Isabel Davenport MD [address] [place], [place] 101111 PCP - General Family Medicine 10/25/10 Merari Camarillo MD [address] [facility] [address] [place], [place] 60[address] Cardiology 03/10/19 oCrtez Forrester Jr., MD [address] [facility] [address] [place] [address]27164514 Neurology 03/10/19 Antonio Christina, OD [address] [place] [address] Optometry 03/10/19 Fifi Calderón MD [address] [place] [address] Primary Staff Physician Cardiology 11/14/22 Vadim Teixeira, DALIA.SOLUTIONS EXECUTIVE SECURITY [address] [facility] [address] [place], [place] [address] Egg Factory Worker Internal Medicine 10/12/24 Reservation Clerk Relationship Specialty Start Date End Date Isabel Davenport MD [address] [place], [place] 857391 PCP - General Family Medicine 10/25/10 Merari Camarillo MD [address], [place] [address] [place] [address] Cardiology 03/10/19 Cortez Forrester Jr., MD [address] [place] [address] [place] [phone] Neurology 03/10/19 Antonio Christina, OD [address] [place] [address] Optometry 03/10/19 Fifi Calderón MD [address] [place], [place] 9033495 Primary Staff Physician Cardiology 11/14/22 Vadim Teixeira, DALIA.SOLUTIONS EXECUTIVE SECURITY [address] [facility] [address] [address] Egg Factory Worker Internal Medicine 10/12/24 Reservation Clerk Relationship Specialty Start Date End Date Isabel Davenport MD [address] [place] [address] PCP - General Family Medicine 10/25/10 Merari Camarillo MD [address], [place] [address] [place] [address] Cardiology 03/10/19 Cortez Forrester Jr., MD [address] [place] [address] [place] [phone] Neurology 03/10/19 Antonio Christina, OD [address] [place] [address] Optometry 03/10/19 Fifi Calderón MD [address] [place] [address] Primary Staff Physician Cardiology 11/14/22 Vadim Teixeira APRN.[employer]UTIONS EXECUTIVE SECURITY [address] [facility] [address] [place], [place] [address] Egg Factory Worker Internal Medicine 10/12/24 Reservation Clerk Relationship Specialty Start Date End Date Isabel Davenport MD [address] [place], [place] 779661 PCP - General Family Medicine 10/25/10 Merari Camarillo MD [address] [facility] [address] [place] [address] Cardiology 03/10/19 Cortez Forrester Jr., MD [address] [facility] [address] [place] [phone] Neurology 03/10/19 J Luiscaroline Antonio, SABINE [address] [place] [address] Optometry 03/10/19 Fifi Calderón MD [address] [facility] [place] [address]179[address] Primary Staff Physician Cardiology 11/14/22 Vadim Teixeira APRN.SOLUTIONS EXECUTIVE SECURITY [address] [facility] [address] [place], [place] [address] Egg Factory Worker Internal Medicine 10/12/24 Reservation Clerk Relationship Specialty Start Date End Date Isabel Davenport MD [address] [place] [address] PCP - General Family Medicine 10/25/10 Merari Camarillo MD [address], [place] [address] [place] [address] Cardiology 03/10/19 Cortez Forrester Jr., MD [address] [facility] [address] [place] [address]2183333[address]4514 Neurology 03/10/19 Antonio Christina OD [address] [place] [address] Optometry 03/10/19 Fifi Calderón MD [address] [place], [place] 1810295 Primary Staff Physician Cardiology 11/14/22 Vadim Teixeira APRN.SOL[employer] EXECUTIVE SECURITY [address] [facility] [address] [address] Egg Factory Worker Internal Medicine 10/12/24 Reservation Clerk Relationship Specialty Start Date End Date Isabel Davenport MD [address] [place] [address] PCP - General Family Medicine 10/25/10 Merari Camarillo MD [address], [place] [address] [place] [address] Cardiology 03/10/19 Cortez Forrester Jr., MD [address] [facility] [address] [place] [address]-9178333[address]4514 Neurology 03/10/19 Antonio Christina, OD [address] [place] [address] Optometry 03/10/19 Fifi Calderón MD [address] [place] [address] Primary Staff Physician Cardiology 11/14/22 Vadim Teixeira, DALIA.SOLUTIONS EXECUTIVE SECURITY [address] [facility] [address] [address] [place], [place] [address] Egg Factory Worker Internal Medicine 10/12/24 Reservation Clerk Relationship Specialty Start Date End Date Isabel Davenport MD [address] [place], [place] 085511 PCP - General Family Medicine 10/25/10 Merari Camarillo MD [address] [facility] [address] [place] [address] Cardiology 03/10/19 Cortez Forrester Jr., MD [address] [facility] [address] [place] [phone] Neurology 03/10/19 J LuisAntonio velazquez, OD [address] [place] [address] Optometry 03/10/19 Fifi Calderón MD [address] [place] [address] Primary Staff Physician Cardiology 11/14/22 Vadim Teixeira, DALIA.SOL[employer]IONS EXECUTIVE SECURITY [address] [facility] [address] [address] Egg Factory Worker Internal Medicine 10/12/24 Reservation Clerk Relationship Specialty Start Date End Date Isabel Davenport MD [address] [place] [address] PCP - General Family Medicine 10/25/10 Merari Camarillo MD [address] [facility] [place] [address] [place] [address] Cardiology 03/10/19 Cortez Forrester Jr., MD [address] [facility] [address] [place] [address] Neurology 03/10/19 Antonio Christina OD [address] [place] [address] Optometry 03/10/19 Fifi Calderón MD [address] [place], [place] [id number] Primary Staff Physician Cardiology 11/14/22 Vadim Teixeira APRN.[employer] EXECUTIVE SECURITY [address] [facility] [address] [address] Egg Factory Worker Internal Medicine 10/12/24 Goals (unrecognized section and content) Goals may be documented in a n alternate section FOR RECORDS PERTAINING TO PATIENTS WHO ARE OR HAVE BEEN ENROLLED IN A CHEMICAL DEPENDENCY/SUBSTANCEABUSE PROGRAM, SOME INFORMATION MAY BE OMITTED. This clinical summary was aggregated from multiple sources. Caution should be exercised in using it in the provision of clinical care. This summary normalizes information from multiple sources, and as a consequence, information in this document may materially change the coding, format and clinical context of patient data. In addition, data may be omitted in some cases. CLINICAL DECISIONS SHOULD BE BASED ON THE PRIMARY CLINICAL RECORDS. [facility]. provides no warranty or guarantee of the accuracy or completeness of information in this document.
== END | disposition home or self-care (01) ==
LOC: CT 07:29
PROVIDERS: PCP Family Medicine; Referring Provider Otolaryngology; Visit Provider Otolaryngology
DX: J32.9 Chronic sinusitis, unspecified (principal)
CPT/HCPCS: 70486

== ENCOUNTER → 2025-04-20 | Outpatient (CLI) | payer BC, SELFPAY ==
--- NOTE | 2025-04-20 07:48 | EKG12_ITS ---
Test Reason : PRE OP Blood Pressure : */* mmHG Vent. Rate : 68 BPM Atrial Rate : 68 BPM P-R Int : 144 ms QRS Dur : 82 ms QT Int : 408 ms P-R-T Axes : 26 0 22 degrees QTcB Int : 433 ms Normal sinus rhythm Normal ECG Confirmed by SARAVANAN MACHADO, JOVON ([id number]), purchasing expeditor ZOILA DOS SANTOS ([id number]) on 04/21/2025 8:23:28 AM Referred By: Dandre Melissa Confirmed By: JOVON COE MD
== END | disposition home or self-care (01) ==
PROVIDERS: PCP Family Medicine; Referring Provider Otolaryngology; Visit Provider Otolaryngology
DX: Z01.818 Encounter for other preprocedural examination (principal)
CPT/HCPCS: 93005

== ENCOUNTER → 2025-04-24 | Outpatient (CLI) | payer BC, SELFPAY ==
--- OUTSIDE RECORDS SUMMARY | 2025-04-24 07:19 | XMS RPT_ITS | CCD ---
Author Organization [facility] Care Team Providers Care Skip Tracer Name Role Phone PROVIDER, UNKNOWN Attending Unavailable [...] Unavailable Isabel Davenport MD Primary Care Provider [phone] Merari Camarillo MD Unavailable Usama Briseno MD, William J Unavailable [phone] Valeriy Christina ODon Unavailable Isabel Davenport MD Primary Care Provider Merari Camarillo MD Unavailable Usama Briseno MD, William J Unavailable [facility] Antonio Unavailable Isabel Davenport MD Primary Care Provider ISABEL DAVENPORT Primary Care Unavailable SJ MCCARTHY JR Referring Unavailable SJ MCCARTHY JR Referring Unavailable ISABEL DAVENPORT Primary Care Unavailable Isabel Davenport MD Primary Care Provider Marquise MD, Merari Unavailable Usama Briseno MD, Cortez Benjamin Unavailable Antonio Christina OD Unavailable Kaitlynn MACHADO, Fifi Unavailable Fifi Calderón MD Unavailable Isabel Davenport MD Primary Care Provider Marquise MACHADO, Merari Unavailable Puneet GUEST RELATIONS MANAGER.CUT OFF SAW GRADER, Vadim Unavailable [phone] MERARI CAMARILLO Attending Unavailable SELF Referring Unavailable ISABEL DAVENPORT Primary Care Unavailable PHYLLIS BERNARDO Attending Unavailable SELF Referring Unavailable ISABEL DAVENPORT Primary Care Unavailable Carl MACHADO, Dr. Vogel Primary Care Provider Shin MACHADO, Dr. Amos Attending Provider Shin MACHADO, Dr. Amos Referring Provider Dandre Melissa Attending Unavailabl e Dandre Melissa Referring Unavailabl e Kontak, Jaspreet Primary Care Unavailable Dandre Melissa Referring Unavailabl e Kontak, Jaspreet Primary Care Unavailable Dandre Melissa Attending Unavailabl e Wartmann, Dandre Attending Unavailabl e Dandre Melissa Referring Unavailabl e HuantaJaspreet horn Primary Care Unavailable VADIM TEIXEIRA Referring Unavailable ISABEL DAVENPORT Primary Care Unavailable ISABEL DAVENPORT Referring Unavailable ISABEL DAVENPORT Primary Care Unavailable JEMIMA WINN Attending Unavailable VADIM TEIXEIRA Referring Unavailable ISABEL DAVENPORT R Primary Care Unavailable KELLI, ELIZABETH Attending Unavailable ISABEL DAVENPORT Primary Care Unavailable ISABEL DAVENPORT Attending Unavailable ISABEL DAVENPOTR R Primary Care Unavailable PARASROBINA, ELIZABETH Attending Unavailable SELF Referring Unavailable ISABEL DAVENPORT R Primary Care Unavailable ISABEL DAVENPORT R Primary Care Unavailable ENEIDA LOYOLA Referring Unavailable ISABEL DAVENPORT Primary Care Unavailable Allergies Allergy Classification Reported Allergen(s) Allergy Type Date of Onset Reaction(s) Facility (20 sources) TETANUS VACCINES AND TOXOID; Translations: [TETANUS VACCINES AND TOXOID] Propensity to adverse reactions to drug (disorder) 9 Hives [facility] Other [facility] (20 sources) Fish; Translations: [FISH CONTAINING PRODUCTS] Drug Allergy 9 Hives, Swelling [facility] Work Phone: (3 sources) Fish Containing Products Allergy to substance 0 Swelling, NEEDS FOLLOW-UP [facility] (20 sources) Iodine; Translations: [IODINE] Drug Allergy 4 Unknown [facility] (20 sources) Shellfish; Translations: [SHELLFISH DERIVED] Drug Allergy 4 Other: See Comments [facility] (3 sources) tetanus and diphtheria toxoids; Translations: [tetanus and diphtheria toxoids] Allergy to substance 3 NEEDS FOLLOW-UP [facility] (1 source) Fish Containing Products Drug allergy (disorder) 3 [facility] Repository Medications Current Medications Medication Drug Class(es) Dates Sig (Normalized) Sig (Original) amLODIPine 10 mg oral tablet (20 sources) Dihydropyridine Calcium Channel Gato Start: 01-25-2018 End: 05-11-2024 take 1 tablet by mouth once daily Amlodipine 10 mg tablet Active 10 mg PO DAILY January 25, 2018 12:00am Comment on above: take 1 tablet by garry th once daily Take 1 tablet by garry th once daily. amoxicillin 875 mg / clavulanate 125 mg oral tablet (2 sources) Penicillin-class Antibacterial Start: 09-06-2022 End: 09-11-2022 take 1 tablet by mouth twice daily amoxicillin-clavu lanic acid (AUGMENTIN) 875-125 mg per tablet Take 1 tablet by mouth twice daily for 5 days. 10 tablet 0 09/06/2022 09/11/2022 Active Comment on above: Take 1 tablet by garry th twice daily for 5 days. aspirin 81 mg delayed release oral tablet (20 sources) Platelet Aggregation Inhibitor, Nonsteroidal Anti-inflammatory Drug Start: 04-20-2019 Aspirin (Adult Low Dose Aspirin) 81 MG tablet,delayed release (DR/EC) Active 81 mg PO DAILY April 20, 2019 12:00am Comment on above: take 1 tablet by garry th once daily atorvastatin 40 mg oral tablet (20 sources) HMG-CoA Reductase Inhibitor Start: 12-31-2023 End: 03-14-2025 take 1 tablet by mouth once daily atorvastatin (LIPITOR) 40 mg tablet Indications: Essential hypertension Take 1 tablet by mouth once daily. 90 tablet 1 09/15/2024 Active Start: 11-30-2021 End: 02-15-2023 take 1 [...] Dx: Type 2 DM - Uncontrolled E11.65 clopidogrel 75 mg oral tablet (20 sources) P2Y12 Platelet Inhibitor Start: 04-20-2019 End: 01-29-2025 take 1 tablet by mouth once daily Clopidogrel 75 MG tablet Active 75 mg PO DAILY April 20, 2019 12:00am Comment on above: take 1 tablet by garry th once daily Take 1 tablet by garry th once daily. docosanol 100 mg/ml topical cream (19 sources) Start: 01-05-2025 docosanol (ABREVA) 10 % crea Apply to affected area five times a day. 2 g 1 01/05/2025 Active [id number] 0.3 ml EPINEPHrine 1 mg/ml auto-injector (17 sources) alpha-Adrenergic Agonist, beta-Adrenergic Agonist, Catecholamine Start: 01-15-2025 EPINEPHrine (EPIPEN) 0.3 mg/0.3 mL auto-injector Inject 0.3 mL intramuscularly as needed. 2 Each 01/15/2025 Active fexofenadine hydrochloride 180 mg oral tablet (18 sources) Histamine-1 Receptor Antagonist Start: 01-15-2025 End: 04-21-2025 take 1 tablet by mouth once daily as needed fexofenadine (KARELY) 180 mg tablet Take 1 tablet by mouth once daily as needed. 120 tablet 2 04/21/2025 Active fluticasone propionate 0.05 mg/actuat metered dose nasal spray (20 sources) Corticosteroid Start: 10-21-2024 take 1-2 spray(s) nasal route once daily fluticasone (FLONASE) 50 mcg/actuation nasal spray instill 1 TO 2 sprays into each nostril once daily if needed 10/21/2024 Active Start: 10-06-2022 take 2 spray(s) by m out once daily fluticasone (FLONASE) 50 mcg/actuation nasal [...] tablet 3 11/30/2021 11/30/2022 Active Start: 09-21-2016 Hydrochlorothi azide 12.5 MG capsule Active 1 {tbl} PO DAILY September 21, 2016 1:00am Comment on above: Take 1 tablet by garry once daily. levothyroxine sodium 0.05 mg oral [...] (20 sources) Angiotensin 2 Receptor Gato Start: End: take 1 tablet by mouth once daily [...] mg oral tablet (20 sources) Biguanide Start: 06-28-20 End: 10-24-20 take 2 tablets by mouth once daily at breakfast metFORMIN (GLUCOPHAGE) 500 mg tablet Indications: Type 2 diabetes mellitus without complication, without long-term current use of insulin (HCC) Take 2 tablets by mouth daily with breakfast. 0 06/28/2022 10/24/2022 Discontinued Start: 01-25-2018 End: 05-11-2024 take 2 tablets by mouth twice daily Metformin 500 mg tablet Active 1000 mg PO TWICE A DAY 60 January 25, 2018 12:00am Start: 01-25-2018 take 1000 mg by mouth twice da manjeet Metformin Active 1000 MG PO TWICE A DAY 60 January 24, 2018 11:00pm Comment on above: Take 2 tablets by mo uth twice daily with meals. Take 2 tablets by mo ut daily with breakfast. take 2 tablets by mo uth twice a day with meals Take 2 tablets by mo uth two times a day with meals. 24 hr metoprolol succinate 25 mg extended release oral tablet (20 sources) beta-Adrenergic Gato Start: 06-11-2024 take 1 tablet by mouth once daily [...] tablet 3 12/27/2020 06/14/2022 Discontinued Start: 04-20-2019 Metoprolol Tar trate 25 MG tablet Active 12.5 mg PO TWICE A DAY April 20, 2019 12:00am Start: 04-20-2019 take 12.5 mg by mout [...] above: Take by mouth once d aily. naproxen 500 mg oral tablet (2 sources) Nonsteroidal Anti-inflammatory Drug Start: 3 take 1 tablet by mouth twice daily as needed for pain Naproxen (Naprosyn) 500 mg tablet Active 500 mg PO TWICE A DAY as needed for pain March 25, 2023 12:00am perflutren lipid microspheres 1.3 mL in NaCl (PF) 0.9% 10 mL injection (DEFINITY) (20 sources) Start: End: perflutren lipid microspheres 1.3 mL in NaCl (PF) 0.9% 10 mL injection (DEFINITY) Start: 08-02-2022 End: 11-01-2023 perflutren lipid microsphere s 1.3 mL in NaCl (PF) 0.9% 10 mL injection (DEFINITY) phenylephrine hydrochloride 25 mg/ml ophthalmic solution (1 source) alpha-1 Adrenergic Agonist Start: 07-12-2022 End: 07-12-2022 PHENYLephrine 2.5 % 1 Drop (AK-DILATE, IZA-SYNEPHRINE) SITagliptin 50 mg oral tablet (19 sources) Dipeptidyl Peptidase 4 Inhibitor Start: 01-05-2025 take 1 tablet by mouth once daily SITagliptin phosphate (JANUVIA) 50 mg tablet Take 1 tablet by mouth once daily. 30 tablet 11 01/05/2025 Active 125 ml sodium chloride 9 mg/ml prefilled syringe (20 sources) Start: 08-02-2022 End: 02-18-2024 sodium chloride 0.9 % (flush) 10 mL (BD POSIFLUSH) tiZANidine 4 mg oral capsule (2 sources) Central alpha-2 Adrenergic Agonist Start: 03-25-2023 take 1 capsule by mouth every eight hours as needed Tizanidine (Zanaflex) 4 mg capsule Active 4 mg PO Q8H as needed for muscle spasticity March 25, 2023 12:00am tropicamide 10 mg/ml ophthalmic solution (2 sources) Anticholinergic Start: 03-28-2024 End: 03-28-2024 tropicamide 1 % 1 Drop (MYDRIACYL) Start: 07-12-2022 End: 07-12-2022 tropicamide 1 % 1 Drop (MYDR IACYL) TRUE METRIX GLUCOSE METER (20 sources) Start: 11-13-2022 TRUE METRIX GL UCOSE METER Glucose Meter of zLense - Kit - Dx Type 2 DM [...] mg / caffeine 65 mg oral tablet (3 sources) Platelet Aggregation Inhibitor, Nonsteroidal Anti-inflammatory Drug, Central Nervous System Stimulant, Methylxanthine Start: 09-21-2016 End: 01-25-2018 Aspirin-Acetaminop hen-Caffeine 1 EACH tablet Discontinued 1 NMA PO DAILY September 21, 2016 1:00am January 25, 2018 11:22am Start: 09-21-2016 End: 01-25-2018 Pfzkter-Sgizvtcdsybdk-Wthruk ne Discontinued 1 EACH PO DAILY September 21, 2016 12:00am January 25, 2018 10:22am acetaminophen 325 mg / HYDROcodone bitartrate 5 mg oral tablet (3 sources) Opioid Agonist Start: 07-18-2020 End: 07-20-2020 Hydrocodone-Acetaminophen 1 TABLET tablet Discontinued 1 {tbl} PO EVERY 4 HOURS NEEDED as needed for Pain 14 2 July 18, 2020 July 19, 2020 12:00am July 20, 2020 12:03am Start: 07-18-2020 End: 07-20-2020 take 1 tablet by mouth every four hours as needed Hydrocodone-Acetaminophen Discontinued 1 TABLET PO EVERY 4 HOURS NEEDED 14 2 July 18, 2020 July 19, 2020 11:03pm benzonatate 100 mg oral capsule (11 sources) Non-narcotic Antitussive Start: 10-06-2022 take 2 capsules by mouth every eight hours as needed benzonatate (TESSALON PERLES) 100 mg capsule Take 2 capsules by mouth three times daily as needed. 30 capsule 0 10/06/2022 Active Start: 09-06-2022 take 1 capsule by mo uth every eight hours as needed benzonatate (TESSALON PERLES) 100 mg capsule Take 1 capsule by mouth three times daily as needed for cough. 12 capsule 0 09/06/2022 Active Comment on above: Take 1 capsule by mo uth three times daily as needed for cough. Take 2 capsules by m outh three times daily as needed. clindamycin 300 mg oral capsule (3 sources) Lincosamide Antibacterial Start: 2019 End: 2022 take 1 capsule by mouth every six hours Clindamycin Hcl 300 MG capsule Discontinued 300 mg PO EVERY 6 HOURS 40 July 18, 2020 12:00am December 26, 2022 6:04pm cyclobenzaprine hydrochloride 10 mg oral tablet (13 [...] once daily glimepiride 2 mg oral tablet (7 sources) Sulfonylurea Start: 2021 End: 2021 take 1 tablet by mouth once daily at breakfast for diabetes mellitus glimepiride (AMARYL) 2 mg tablet Indications: Type 2 diabetes mellitus without complication, without long-term current use of insulin (HCC) Take 1 tablet by mouth daily with breakfast. For diabetes 30 tablet 11 06/28/2022 07/21/2022 Discontinued Start: 04-20-2019 take 1 tablet by garry th once daily Glimepiride 1 MG tablet Active 1 mg PO DAILY April 20, 2019 12:00am Comment on above: Take 1 tablet by garry th daily with breakfast. For diabetes hydrOXYzine hydrochloride 50 mg oral tablet (13 sources) Antihistamine Start: 2021 End: 2021 take 0.5 tablet by mouth three times daily hydrOXYzine HCl (ATARAX) 50 mg tablet Take 0.5 tablets by mouth three times daily. 30 tablet 0 02/18/2022 07/21/2022 Discontinued Comment on above: Take 0.5 tablets by mouth three times daily. methylPREDNISolone 4 mg oral tablet (3 sources) Corticosteroid Start: 2018 End: 2022 Methylprednisolone 4 MG tablet Discontinued 4 mg PO DIRECTED April 21, 2019 12:00am December 26, 2022 6:05pm predniSONE 10 mg oral tablet (13 sources) Start: 2022 End: 2023 predniSONE (DELTASONE) 10 mg tablet Indications: Primary [...] 5, 1 tab day 6. triamcinolone acetonide 0.60973 mg/mg topical ointment (13 sources) Corticosteroid Start: 2021 End: 2021 triamcinolone (KENALOG) 0.025 % ointment Apply to [...] [Adjustment disorder, unspecified] 01-05-2025 Chronic Allergic reactions (9 sources) Inflammatory dermatosis; Translations: [Dermatitis, unspecified] Onset: 04-21-2025 Episodic Asthma (20 sources) Unspecified asthma, uncomplicated; [...] 03-31-2021 Chronic Diseases of mouth; excluding dental (4 sources) Oral lesion; Translations: [Unspecified lesions of oral mucosa] Onset: 04-21-2025 01-05-2025 Episodic Disorders of lipid metabolism (20 [...] [Nonrheumatic aortic (valve) insufficiency] Onset: 01-19-2019 Chronic Immunizations and screening for infectious disease (1 source) Suspected disease caused by 2019-nCoV; Translations: [Suspected COVID-19 virus infection] Episodic Influenza (3 sources) Influenza due to Influenza A virus; Translations: [Influenza due to other identified influenza virus with other respiratory manifestations] 10-30-2022 Episodic Mood disorders (20 sources) Depressive disorder; Translations: [Depression] Onset: 05-12-2020 05-12-2020 Chronic Open wounds of extremities (2 sources) Laceration of left hand; Translations: [Laceration without foreign body of left hand, initial encounter] 12-16-2022 Episodic Osteoarthritis (1 source) Osteoarthritis of right hip joint; Translations: [Unilateral primary osteoarthritis, right hip] Chronic Other aftercare (2 sources) long term care phlebotomist (current) use of oral hypoglycemic drugs; Translations: [penitentiary (current) use of oral hypoglycemic drugs] Onset: 01-19-2019 Other circulatory disease (18 sources) History of cardiovascular surgery; Translations: [Presence of other cardiac implants and grafts] 01-16-2025 Chronic Other gastrointestinal disorders (2 sources) Occult blood in stools; Translations: [Other fecal abnormalities] 03-09-2025 Episodic Other gastrointestinal disorders (1 source) Other fecal abnormalities; Translations: [Positive fecal occult blood test] Onset: 03-09-2025 Episodic Other injuries and conditions due to external causes (2 sources) Angioedema; Translations: [Angioneurotic edema, initial encounter] 01-15-2025 [...] Episodic Other upper respiratory infections (1 source) Chronic sinusitis, unspecified; Translations: [Chronic sinusitis, unspecified] Onset: 04-14-2025 Chronic Other upper respiratory infections (2 sources) [...] Translations: [Jaw pain] Onset: 05-12-2020 05-12-2020 Episodic Other acquired deformities (20 sources) Leg [...] Test Name Value Interpretation Reference Range Facility [facility] 04-21-2025 CNOV Office Visit (ALLEST ) -- MARTHA VENEGAS ([id number]) 1970 F Date Time Provider Department 04/21/25 10:30 AM ELIZABETH PEREIRA During your visit today, we recorded the following information about you: Pulse Weight 64/minute 91 kg Elizabeth Pereira MD 04/21/2025 11:33 AM Signed Allergy and Immunology All aspects of this note have been reviewed and updated. Martha Preciado Theo is a 54 year old female PMHx CVA, HTN, asthma, acquired hypothyroidism who was last seen by myself on 01/15/2025, here today for follow up. Since last visit, she notes that she took karely 1-2 tablets for 1 week after we last saw each other but has not taken any since then. She denies any other swelling, hives since the week of January. No burning, bruising, or scarring. She continues to note darken lips and irritation of her lips when she is around manufacturing labs and lips glosses. She tolerates corn of the cob, dairy, garlic, and other ingredients listed on the packaging. Her daughter underwent patch testing previously. MYC ASTHMA CONTROL TEST Question 04/14/2025 10:31 AM EDT - Filed by Patient 01/13/2025 3:22 PM EDT - Filed by Patient Keep from getting things done 5 None of the time 5 None of the time Shortness of breath 5 Not at all 5 Not at all Symptoms wake up at night or early in morning 5 Not at all 5 Not at all How often have you used inhaler/nebulizer 5 Not at all 5 Not at all Rate your asthma control over past 4 weeks 5 Completely controlled 5 Completely controlled Asthma Control Test Score (range: 0 - 25) 25 25 In the last 24 hours, how many hives have you experienced? 0 None In the last 24 hours, evaluate your pruritis associated with hives: 0 None UAS-24 hrs Total Score (0-6): 0 Over the last 7 days, on average how many hives have you experienced per day? 1 Mild (<20 wheals/day) Over the last 7 days, evaluate your pruritis associated with hives: 0 None UAS-7 day Total Score (0-6): 1 Documentation from Previous Encounters: January 15, 2025: The patient reports that she has been [...] Is there any exposure to vaping? No Current Outpatient Medications Medication Sig losartan (COZAAR) 100 mg tablet take 1 tablet by mouth once daily clopidogrel (PLAVIX) 75 mg tablet take 1 tablet by mouth once daily EPINEPHrine (EPIPEN) 0.3 mg/0.3 mL auto-injector Inject 0.3 mL intramuscularly as needed. fluticasone (FLONASE) 50 mcg/actuation nasal spray instill 1 TO 2 sprays into each nostril once daily if n (more content not included)... [facility] MARTH[facility] VENEGAS ([id number]) 1970 F Date Time Provider Department 04/21/25 ISABEL DAVENPORT During your visit today, we recorded the following information about you: Anastasia Ulloa LPN 04/21/2025 9:09 AM Signed Received EKG report from [facility]. Placed in provider's inbox for review. Route to MA scanning Allergies As of Date: 04/21/2025 Noted Allergy Reaction FISH CONTAINING PRODUCTS 04/29/2019 4 - Hives 7 - Swelling IODINE 08/14/2024 16 - Unknown SHELLFISH DERIVED 08/14/2024 14 - Other: See Comments TETANUS VACCINES AND TOXOID 04/30/2009 Comments: Local Reaction Date Reviewed: 03/09/2025 Reviewed by: Marlen Mayers, RN - Fully Assessed Reason for Visit: Received Outside Medical Records [[id number]] Cmt: [facility] EKG Prescriptions as of 04/21/2025 - losartan (COZAAR) 100 mg tablet take 1 tablet by mouth once daily - clopidogrel (PLAVIX) 75 mg tablet take 1 tablet by mouth once daily - EPINEPHrine (EPIPEN) 0.3 mg/0.3 mL auto-injector Inject 0.3 mL intramuscularly as needed. - fexofenadine (KARELY) 180 mg tablet Take 1 tablet daily. [...] once daily Problem List As Of Date 04/21/2025 Noted Resolved CALCANEAL SPUR [M77.30] 09/22/2008 Primary [...] of implantable loop recor* Encounter Status:Closed by ANASTASIA ULLOA on 04/21/25 Normal [facility] Electrocardiogram reportOrde red By: Yoav Navas on 04-21-2025 EKG study [facility] Cardiovascular Services [address] [place] [id number] 12 Lead EKG 04/20/25 0754 MR#: [id number] Acct: [id number] Name: MARTHA VENEGAS Rep #:[id number] : 1970 54 From: Yoav Navas MD Attending Dr: Dr. Dandre Melissa MD Status: REG CLI Ordering Dr: Dandre Melissa MD D ate: 04/20/25 Location: PSN Sex: F AA Admitted: Test Reason : PRE OP Blood Pressure : */* mmHG Vent. Rate : 68 BPM Atrial Rate : 68 BPM P-R Int : 144 ms QRS Dur : 82 ms QT Int : 408 ms P-R-T Axes : 26 0 22 degrees QTcB Int : 433 ms Normal sinus rhythm Normal ECG Confirmed by YOAV NAVAS MD ([id number]), editor in chief newspaper MARLEN DOS SANTOS ([id number]) on 58:23:28 AM Referred By: Dandre Melissa Confirmed By: YOAV NAVAS MD 04/21/25822 Date _ Yoav Navas MD CC: Dr. Dandre Melissa MD; Dr. Jaspreet Davenport MD ~ Signed [facility] Other Phone: 12 Lead EKGon 04-20-2025 12 Lead EKG [facility] Cardiovascular Services [address] [place] [address] 12 Lead EKG 04/20/25 0754 MR#: [id number] Acct: [id number] Name: MARTHA VENEGAS Rep #: [id number] : 1970 54 From: Yoav Navas MD Attending Dr: Dr. Dandre Melissa MD Statu s: REG CLI Ordering Dr: Dandre Melissa MD Date: 5 Location: [facility] Sex: F AA Admitted: Test Reason : PRE OP Blood Pressure : */* mmHG Vent. Rate : 68 BPM Atrial Rate : 68 BPM P-R Int : 144 ms QRS Dur : 82 ms QT Int : 408 ms P-R-T Axes : 26 0 22 degrees QTcB Int : 433 ms Normal sinus rhythm Normal ECG Confirmed by YOAV NAVAS MD ([id number]), editor in chief newspaper MARLEN DOS SANTOS ([id number]) on 04/21/2025 8:23:28 AM Referred By: Dandre Melissa Confirmed By: YOAV NAVAS MD 04/21/25822 Date Yoav Navas MD CC: Dr. Dandre Melissa MD; Dr. Jaspreet Davenport MD Signed [facility]NP[facility] 04-10-2025 [facility] Telephone (AGCARDPOB ) -- THEOMARTHA Preciado ([id number]) 1970 F Date Time Provider Department 04/10/25 PHYLLIS BERNARDO AGCARDPOB During your visit today, we recorded the following information about you: Duane Norris 04/10/2025 11:39 AM Signed Cardiac Clearance received from [facility] for Left myringotomy with T-Tube on 05/19/25 Form scanned and placed in Az's box for review. Duane Norris Allergies As of Date: 04/10/2025 Noted Allergy Reaction FISH CONTAINING PRODUCTS 04/29/2019 4 - Hives 7 - Swelling IODINE 08/14/2024 16 - Unknown SHELLFISH DERIVED 08/14/2024 14 - Other: See Comments TETANUS VACCINES AND TOXOID 04/30/2009 Comments: Local Reaction Date Reviewed: 03/09/2025 Reviewed by: Marlen Mayers, RN - Fully Assessed Reason for Visit: Cardiac Clearance [8040] Prescriptions as of 04/10/2025 - losartan (COZAAR) 100 mg tablet take 1 tablet by mouth once daily - clopidogrel (PLAVIX) 75 mg tablet take 1 tablet by mouth once daily - EPINEPHrine (EPIPEN) 0.3 mg/0.3 mL auto-injector Inject 0.3 mL intramuscularly as needed. - fexofenadine (KARELY) 180 mg tablet Take 1 tablet daily. [...] daily. Dx: Type 2 DM - Uncontrolled E11 Insulin: No - Lancets lancets Test blood [...] once daily Problem List As Of Date 04/10/2025 Noted Resolved CALCANEAL SPUR [M77.30] 09/22/2008 Primary [...] of implantable loop recor* Encounter Status:Closed by DUANE NORRIS on 04/10/25 [facility] 04-09-2025 [facility] Telephone (JAILENEWARUTHIE) -- MARTHA VENEGAS ([id number]) 1970 F Date Time Provider Department 04/09/25 ISABEL DAVENPORT During your visit today, we recorded the following information about you: Anastasia Ulloa LPN 04/09/2025 11:25 AM Signed Received imaging report for sinus/ facial bone from [facility]. Placed in provider's inbox for review. Route to MA scanning Allergies As of Date: 04/09/2025 Noted Allergy Reaction FISH CONTAINING PRODUCTS 04/29/2019 4 - Hives 7 - Swelling IODINE 08/14/2024 16 - Unknown SHELLFISH DERIVED 08/14/2024 14 - Other: See Comments TETANUS VACCINES AND TOXOID 04/30/2009 Comments: Local Reaction Date Reviewed: 03/09/2025 Reviewed by: Marlen Mayers RN - Fully Assessed Reason for Visit: Received Outside Medical Records [[id number]] Cmt: [facility] imaging Prescriptions as of 04/09/2025 - losartan (COZAAR) 100 mg tablet take 1 tablet by mouth once daily - clopidogrel (PLAVIX) 75 mg tablet take 1 tablet by mouth once daily - EPINEPHrine (EPIPEN) 0.3 mg/0.3 mL auto-injector Inject 0.3 mL intramuscularly as needed. - fexofenadine (KARELY) 180 mg tablet Take 1 tablet daily. [...] once daily Problem List As Of Date 04/09/2025 Noted Resolved CALCANEAL SPUR [M77.30] 09/22/2008 Primary [...] of implantable loop recor* Encounter Status:Closed by ANASTASIA ULLOA on 04/09/25 [facility] [facility] Sinus/Facial Boneon 04-08-20 25 Sinus/Facial Bone [facility] Imaging Services [address], [place] [address] Sinus/Facial Bone MR#: [id number] Acct: [id number] Name: MARTHA VENEGAS Rep #: [id number] : 1970 F 54 From: Alan Duncan MD PCP: Dr. Jaspreet Davenport MD Status: REG CLI Study: Sinus/Facial Bone Date of Exam: 04/08/25 Exam# [id number] Ordering Dr: Dandre Melissa MD PROCEDURE: SINUS/FACIAL BONE REASON FOR EXAM: SINUSITIS None. TECHNIQUE: CT of the paranasal sinuses without contrast. Coronal and Sagittal reconstruction series were provided. One or more dose reduction techniques were used (e.g., Automated exposure control, adjustment of the mA and/or kV according to patient size, use of iterative reconstruction technique). CTDI volume: 33.06 mGy DLP: 883.43 mGy cm COMPARISON: None. FINDINGS: Frontal: Clear. Ethmoid: Clear. Sphenoid: Clear. Maxillary: Clear. Turbinates: Unremarkable. Nasal Septum: There is mild nasal septal deviation to the left. There is a small left-sided nasal spur. Mastoids/Middle Ears: There is opacification of the mastoid air cells on the left. The right mastoid air cells and the middle ears are unremarkable. Visualized intracranial contents: There is calcific vascular disease of the intracranial portion of both internal carotid arteries. The brain parenchyma has an unremarkable unenhanced CT appearance. Intraorbital contents: Normal. Calvarium, skull base, mandible, and facial soft tissues: The calvarium skull base and mandible are unremarkable. The temporomandibular joints are normal. There are calcifications within the palatine tonsils consistent with chronic inflammation. There are multiple reactive cervical lymph nodes. CT/Sinus/Facial Bone IMPRESSION: 1. The paranasal sinuses are clear. 2. Left mastoiditis. 3. Other findings as noted. Reading Location: [id number] CC: Dr. Dandre Melissa MD; Dr. Jaspreet Davenport MD It Security Consulting Director: Signed [facility] 03-13-2025 [facility] Telephone (FPWADS) -- MARTHA VENEGAS ([id number]) 1970 F Date Time Provider Department 03/13/25 ISABEL DAVENPORT During your visit today, we recorded the following information about you: Shelia Terrazas MA 03/13/2025 11:41 AM Signed [facility] paperwork faxed today. Allergies As of Date: 03/13/2025 Noted Allergy Reaction FISH CONTAINING PRODUCTS 04/29/2019 4 - Hives 7 - Swelling IODINE 08/14/2024 16 - Unknown SHELLFISH DERIVED 08/14/2024 14 - Other: See Comments TETANUS VACCINES AND TOXOID 04/30/2009 Comments: Local Reaction Date Reviewed: 03/09/2025 Reviewed by: Marlen Mayers, KELLEN - Fully Assessed Prescriptions as of 03/13/2025 - losartan (COZAAR) 100 mg tablet take 1 tablet by mouth once daily - clopidogrel (PLAVIX) 75 mg tablet take 1 tablet by mouth once daily - EPINEPHrine (EPIPEN) 0.3 mg/0.3 mL auto-injector Inject 0.3 mL intramuscularly as needed. - fexofenadine (KARELY) 180 mg tablet Take 1 tablet daily. [...] Encounter Status:Closed by SHELIA TERRAZAS on 03/13/25 [facility] ANES POSTPROC EVALon 025 ANES POSTPROC EVAL HNO ID: [id number] Author: SUNITHA MOYA APRN.CRNA Service: Anesthesiology Author Type: Nurse Armature Tester Type: Anesthesia Postprocedure Evaluation Filed: 03/09/2025 09:26 Note Text: POST ANESTHESIA EVALUATION NOTE : 1970 Procedure Summary Date: 03/09/25 Room / Location: Ambulatory Surgery Anesthesia Start: 846 Anesthesia Stop: 924 Procedure: COLONOSCOPY DIAGNOSTIC Diagnosis: Positive fecal occult blood test Scheduled Providers: Jemima Winn MD; Katie Meade RN; Vadim Ruiz Tech Responsible Provider: Sunitha Moya APRN.CRNA Anesthesia Type: MAC ASA Status: 2 Anesthesia Type: MAC Last Vitals Vitals Value Taken Time BP 140/85 03/09/25 0925 Temp 03/09/25924 Pulse 62 03/09/25 09 Resp 26 03/09/25 09 SpO2 100 03/09/25924 Post Anesthesia Patient Status Patient Evaluation: bedside. [...] Anesthesia Observations No Documentation SIGNATURE: Sunitha Moya APRN.MRI SUPERVISOR PATIENT NAME: Martha Vneegas DATE: March 09, 2025 TIME: 9:25 AM CSN: [id number] Normal [facility] ANES PRE-OPon 03-09-2025 ANES PRE-OP HNO ID: [id number] Author: SUNITHA MOYA APRN.MRI SUPERVISOR Service: Anesthesiology Author Type: Nurse Armature Tester Type: Anesthesia Preprocedure Evaluation Filed: 03/09/2025 09:00 Note Text: ANESTHESIOLOGY DAY OF SURGERY NOTE : 1970 Procedure Information Anesthesia Start Date/Time: 03/09/25846 Scheduled providers: Jemima Winn MD; Katie Meade [...] (+) History of stroke (+) Stroke (cerebrum) (HCC) PULMONARY (+) Asthma (HCC) Cardiovascular (+) PFO (patent foramen ovale) ([facility]) I - PHYSICAL EVALUATION AIRWAY Patient intubated: [...] and consent discussed: yes. Patient / Responsible Democrat agrees to proceed: yes Patient / Surrogate [...] Inject 0.3 mL intramuscularly as needed. fexofenadine (KARELY) 180 mg tablet Take 1 tablet daily. [...] 48 hours of Surgery/Procedure. SIGNATURE: Sunitha Moya APRN.MRI SUPERVISOR PATIENT NAME: Martha Venegas DATE: March 09, 2025 (more content not included)... 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 Procedure Code(s): --- Professional --- 96988, Colonoscopy, flexible; diagnostic, including (more content not included)... Normal [facility] Flexible sigmoidoscopy study on 03-09-2025 [facility] Gastroenterology Gastrointestinal Endoscopy Patient Name: Martha Venegas Procedure Date: 03/09/2025 8:41 AM Date of : 1970 Admit Type: Outpatient Age: 54 Room: [facility] 1 Gender: Female Note Status: Finalized Attending MD: Jemima Winn MD, [id number] Procedure: Colonoscopy Indications: Positive fecal immunochemical test Providers: Jemima Winn MD Patient Profile: This is a 54 year old female. Refer to note in patient chart for documentation of history and physical. Last Colonoscopy: none. The patient's first colonoscopy is today. Referring Physician: Vadim hendrix) Sid (Referring MD) Medicines: Monitored Anesthesia Care Complications: [...] bowel preparation was evaluated using the BBPS (Sutter Bowel Preparation Scale) with scores of: Right [...] large am (more content not included)... PROVATION [facility] Radiology Study observation (narrative) [facility] HISTORY PHYSICALon HISTORY PHYSICAL HNO ID: [id number] Author: JEMIMA WINN MD Service: Gastroenterology Author Type: Physician Type: H&P Filed: 03/09/2025 08:41 Note Text: ENDO HISTORY AND PHYSICAL EXAMINATION SHORT FORM EVALUATION DATE: 03/09/2025 EVALUATION TIME: 8:40 AM CHIEF COMPLAINT: Stool Guaiac Positive HPI: This is a 54 year old female who presents with Positive immunochemical fecal occult blood. 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 fexofenadine (KARELY) 180 mg tablet Take 1 tablet daily. [...] March 09, 2025 TIME: 8:40 AM Normal [facility] NURSING PROGon 03-09-2025 NURSING PROG HNO ID: [id number] Author: CHARO RAVI RN Service: Nursing Author Type: Registered Nurse [...] Ferrera RN In Department: AMBULATORY SURGERY Normal [facility] CNPHerminia 03-03-2025 CNPN Telephone (FAMDNA) -- MARTHA VENEGAS ([id number]) 1970 F Date Time Provider Department 03/03/25 ISABEL DAVENPORT During your visit today, we recorded the following information about you: Luann Arita 03/03/2025 9:03 AM Signed Martha is calling Isabel Davenport MD today to advise she is having a procedure on 03/09/2025 , the [facility] paperwork will be coming to request to be off starting 03/07/2025 and 03/08/2025 which are her colonoscopy prep dates as the patient is already off on 03/09/2025. This is just a fyi that this paperwork with be coming from [employer] for these two FMLA dates Patient has been identified by name and birthdate. Duration of symptoms: N/A Person calling: self Call patient at: on cell [phone] (home) [phone] (cell) Was an appointment scheduled: No Closing statement: Results or non-symptom based questions: Thank you for calling [facility], your call will be returned within the next business day. Luann Matthews [facility] Anastasia Ulloa LPN 03/03/2025 10:56 AM Signed Noted, will await receipt of fax Anastasia Ulloa LPN 03/04/2025 1:46 PM [facility]. Placed in pcp inbox for review. Isabel Davenport MD 03/13/2025 8:49 AM Signed [place] paperwork filled out for absence 5*01/2025-03/09/2025. In [...] 0.3 mL intramuscularly as needed. - fexofenadine (KARELY) 180 mg tablet Take 1 tablet daily. [...] [I63.9] 07/06 (more content not included)... Normal [facility] CNPN Telephone (ASWSTR) -- MARTHA VENEGAS ([id number]) 1970 F Date Time Provider Department 03/03/25 KEATON WADE ASWSTR During your visit today, we recorded the following information about you: Yanet Meyer RN 03/03/2025 8:[address] Wade, This pt. needs rescheduled under MAC. Please reach out to pt and assist in rescheduling. Thank you. KELLEN Brown Ida 03/03/2025 9:32 AM Addendum This patient has been contacted and rescheduled to [facility] As of Date: 03/03/2025 Noted Allergy Reaction [...] 0.3 mL intramuscularly as needed. - fexofenadine (KARELY) 180 mg tablet Take 1 tablet daily. [...] Status:Closed by OFELIA JOE on 03/03/25 Normal [facility] THAD SCREENING W TOMOon 02-27 THAD SCREENING W CAMILLA * * *Final Report* * * DATE OF EXAM: Feb 27 2025 7:55AM WRW 0582 - THAD SCREENING W CAMILLA / PROCEDURE REASON: Screening mammogram for breast cancer * * * * Physician Interpretation * * * * RESULT: [address] [address] [place] [address] #[id number] - THAD SCREENING W CAMILLA HISTORY: 54 [...] Chika Pandey M.D. Electronically signed on: 03/02/2025 It Security Consulting Director: ROSA Transcribe Date/Time: Feb 27 2025 7:43A Dictated by: CHIKA PANDEY MD This examination was interpreted and the report reviewed and electronically signed by: CHIKA PANDEY MD on Mar 02 2025 5:25PM EST [id number] Normal [facility] CNPNon 02-23-2025 CNPN Telephone (AGCARDPOB ) -- MARTHA VENEGAS ([id number]) 1970 F Date Time Provider Department 02/23/25 [...] MA - Fully Assessed Reason for Visit: [employer] - Other [2932] Primary Visit Diagnosis:History of loop recorder [Z98.890] Order(s):SURGICAL REQUEST - ELECTIVE (06/2020) [[id number]] Order #: [id number]: 1 Prescriptions as of 02/23/2025 - losartan (COZAAR) 100 mg tablet take 1 tablet by mouth once daily - clopidogrel (PLAVIX) 75 mg tablet take 1 tablet by mouth once daily - EPINEPHrine (EPIPEN) 0.3 mg/0.3 mL auto-injector Inject 0.3 mL intramuscularly as needed. - fexofenadine (KARELY) 180 mg tablet Take 1 tablet daily. [...] Encounter Status:Closed by CESIA FLORES on 02/23/25 [facility] MANNY Telephone (AGCARDPOB ) -- MARTHA VENEGAS ([id number]) 1970 F Date Time Provider Department 02/23/25 BELÉN ALCALAANDROVICHAGCARDPOB During your visit today, we recorded the following information about you: Sury Oliveira 02/23/2025 2:46 PM Signed Patient is scheduled for an ILR Removal on 04/[address] Alcala. The hospital will call the day before between 2-5pm with your arrival time. You should not eat or drink after midnight the day before the procedure. You will need a hack driver when released from the hospital You [...] to arredondo procedure board. Colleen Herrera RN Katie Fernandez 04/08/2025 12:34 PM Signed Patient calling in and does not have transportation for ILR tomorrow. States that Mondays and Tuesdays work best for her for next available date. Katie Fernandez Allergies As of Date: 02/23/2025 Noted Allergy Reaction FISH CONTAINING PRODUCTS 04/29/2019 4 - Hives 7 - Swelling IODINE 08/14/2024 16 - Unknown SHELLFISH DERIVED 08/14/2024 14 - Other: See Comments TETANUS VACCINES AND TOXOID 04/30/2009 Comments: Local Reaction Date Reviewed: 02/16/2025 Reviewed by: Clarisa Jeffrey MA - Fully Assessed Reason for Visit: Preparations For Procedures [899] Prescriptions as of 04/08/2025 - losartan (COZAAR) 100 mg tablet take 1 tablet by mouth once daily - clopidogrel (PLAVIX) 75 mg tablet take 1 tablet by mouth once daily - EPINEPHrine (EPIPEN) 0.3 mg/0.3 mL auto-injector Inject 0.3 mL intramuscularly as needed. - fexofenadine (KARELY) 180 mg tablet Take 1 tablet daily. [...] hemianopsia, left [H53.462] 04/08/2024 Presbyopia [H52.4] 04/08/2024 Statu (more content not included)... Normal [facility] CNOVon 02-16-2025 CNOV Office Visit (CARDAG HWW) -- MARTHA VENEGAS ([id number]) 1970 F Date Time Provider Department 02/16/25 10:00 AM PHYLLIS BERNARDOHWW During your visit today, we recorded the following information about you: Pulse Respiration Blood pressure Weight 68/minute 18/minute 128/78 89.8 kg Height 1.626 m Phyllis Bernardo APRN.[facility] 02/16/2025 10:00 AM Signed Continue current regimen I will discuss loop recorder removal and update you Follow up in 6 months with DALIA or Dr. 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 fexofenadine (KARELY) 180 mg tablet Take 1 tablet daily. [...] - Uncontrolle (more content not included)... Normal [facility] 02-16-2025 MANNY Telephone (EVANSHWW ) -- THEOMARTHA Princess ([id number]) 1970 F Date Time Provider Department 02/16/25 PHYLLIS BERNARDO During your visit today, we recorded the following information about you: Phyllis Bernardo APRN.C[employer] SAW GRADER 02/16/2025 10:03 AM Signed This patient has [...] can arrange extraction. Thanks, Merari Camarillo MD Allergies As of Date: 02/16/2025 [...] 0.3 mL intramuscularly as needed. - fexofenadine (KARELY) 180 mg tablet Take 1 tablet daily. [...] Status:Closed by PHYLLIS BERNARDO on 02/23/25 Normal [facility] Hemoccult Stl Ql IAon 2024 Lower GI hemoglobin IA Ql (Stl) Positive Abnormal Negative [facility] Comment on above: Order Comment: Speci men Type: STOOL SPECIMENOrdering Facility: [facility] Address: [address] [place] [address] Performed By: #### C VFLRS #### [facility] CLIA [id number] [address] [place] [address] OF [facility] Duane 02-03-2025 CNPN Telephone (AMADA) -- THEOMARTHA L ([id number]) 1970 F Date Time Provider Department 02/03/25 ISABEL DAVENPORT During your visit today, we recorded the following information about you: Lorene Jasso LPN 02/03/2025 3:51 PM Signed Received 02/03/2025 from [employer] . Placed in provider's inbox for review. Route to [place] for faxing. Lorene Jasso LPN 02/10/2025 10:35 AM Signed Patient can not remember the dates. She is going to email her the company to get dates she was off. Isabel Davenport MD 02/12/2025 9:24 AM Signed [facility] paperwork filled out with retrospective dates off work. MD Christian Haile Cheralyn COMMERCIAL MANAGER 02/12/2025 2:34 PM Signed Fax sent Allergies As of Date: 02/03/2025 Noted Allergy Reaction FISH CONTAINING PRODUCTS 04/29/2019 4 - Hives 7 - Swelling IODINE 08/14/2024 16 - Unknown SHELLFISH DERIVED 08/14/2024 14 - Other: See Comments TETANUS VACCINES AND TOXOID 04/30/2009 Comments: Local Reaction Date Reviewed: 01/15/2025 Reviewed by: Marilee Powers LPN - Fully Assessed Reason for Visit: Received Outside Medical Records [3572] Cmt: [employer] [facility] Certification of Health Care provider for employees serious health condition 02/03/2025 Prescriptions as of 02/12/2025 - losartan (COZAAR) 100 mg tablet take 1 tablet by mouth once daily - clopidogrel (PLAVIX) 75 mg tablet take 1 tablet by mouth once daily - EPINEPHrine (EPIPEN) 0.3 mg/0.3 mL auto-injector Inject 0.3 mL intramuscularly as needed. - fexofenadine (KARELY) 180 mg tablet Take 1 tablet daily. [...] Encounter Status:Closed by LORENE JASSO on 02/03/25 Normal [facility] CNOVon 01-15-2025 CNOV Office Visit (ALLEST ) -- MARTHA VENEGAS ([id number]) 1970 F Date Time Provider Department 01/15/25 [...] Inject 0.3 mL intramuscularly as needed. fexofenadine (KARELY) 180 mg tablet Take 1 tablet daily. [...] once daily (more content not included)... Normal [facility] CNOVon 01-05-2025 CNOV Office Visit (FPWADS ) -- MARTHA VENEGAS ([id number]) 1970 F Date Time Provider Department 01/05/25 9:20 AM ISABEL DAVENPORT During your visit today, we [...] implantable loop recorder Stroke (cerebrum) ([facility]) TMJ arthritis PHYSICAL EXAMINATION BP 132/80 Pulse [...] to breast cancer Plan: Pt brought in [facility] paperwork, was out of work from December 16 to the . Paperwork will be completed and returned (K13.70) Oral lesion Comment: Intermittent, seeping. Description does not sound like HSV, Consider food reaction Plan: Will continue to monitor will try topical abreva for next outbreak. Requested Prescript (more content not included)... Normal [facility] CBC panel Auto (Bld)on 01-02 Erythrocyte distribution width (RBC) [Ratio] 14.6 % Normal 11.5-15.0 [facility] Comment on above: Order Comment: Speci men Type: BLOOD SPECIMENOrdering Facility: [facility] Address: [address] [place] [address] Performed By: #### C VFLRS #### [facility] CLIA [id number] [address] [place] [address] [place] Hematocrit (Bld) [Volume fraction] 39.2 % Normal 36.0-46.0 [facility] Comment on above: Order Comment: Speci men Type: BLOOD SPECIMENOrdering Facility: [facility] Address: [address] [place] [address] Performed By: #### C VFLRS #### [facility] CLIA [id number] [address] [place] [address] [place] Hemoglobin (Bld) [Mass/Vol] 12.3 g/dL Normal 11.5-15.5 [facility] Comment on above: Order Comment: Speci men Type: BLOOD SPECIMENOrdering Facility: [facility] Address: [address] [place] [address] Performed By: #### C VFLRS #### [facility] CLIA [id number] [address] [place] [address] [place] MCH (RBC) [Entitic mass] 25.9 pg Low 26.0-34.0 [facility] Comment on above: Order Comment: Speci men Type: BLOOD SPECIMENOrdering Facility: [facility] Address: [address] [place] [address] Performed By: #### C VFLRS #### [facility] CLIA [id number] [address] [place] [address] [place] MCHC (RBC) [Mass/Vol] 31.4 g/dL Normal 30.5-36.0 [facility] Comment on above: Order Comment: Speci men Type: BLOOD SPECIMENOrdering Facility: [facility] Address: [address] [place] [address] Performed By: #### C VFLRS #### [facility] CLIA [id number] [address] [place] [address] [place] MCV (RBC) [Entitic vol] 82.5 fL Normal 80.0-100.0 [facility] Comment on above: Order Comment: Speci men Type: BLOOD SPECIMENOrdering Facility: [facility] Address: [address] [place] [address] Performed By: #### C VFLRS #### [facility] CLIA [id number] [address] [place] [address] [place] Nucleated RBC (Bld) [#/Vol] 10*3/uL Normal <0.01 [facility] Comment on above: Order Comment: Speci men Type: BLOOD SPECIMENOrdering Facility: [facility] Address: [address] [place] [address] Performed By: #### C VFLRS #### [facility] CLIA [id number] [address] [place] [address] [place] Platelet mean volume (Bld) [Entitic vol] 11.0 fL Normal 9.0-12.7 [facility] Comment on above: Order Comment: Speci men Type: BLOOD SPECIMENOrdering Facility: [facility] Address: [address] [place] [address] Performed By: #### C VFLRS #### [facility] CLIA [id number] [address] [place] [address] [place] Platelets (Bld) [#/Vol] 289 10*3/uL Normal 150-400 [facility] Comment on above: Order Comment: Speci men Type: BLOOD SPECIMENOrdering Facility: [facility] Address: [address] [place] [address] Performed By: #### C VFLRS #### [facility] CLIA [id number] [address] [place] [address] [place] RBC (Bld) [#/Vol] 4.75 10*6/uL Normal 3.90-5.20 [facility] Comment on above: Order Comment: Speci men Type: BLOOD SPECIMENOrdering Facility: [facility] Address: [address] [place] [address] Performed By: #### C VFLRS #### [facility] IA [id number] [address] [place] [address] [place] WBC (Bld) [#/Vol] 12.61 10*3/uL High 3.70-11.00 [facility] Comment on above: Order Comment: Speci men Type: BLOOD SPECIMENOrdering Facility: [facility] Address: [address] [place] [address] Performed By: #### C VFLRS #### [facility] IA [id number] [address] [place] [address] [place] HbA1c (Bld)on 01-02-2025 Average glucose Estimated from glycated hemoglobin (Bld) [Mass/Vol] 306 mg/dL Normal [facility] Comment on above: Order Comment: Speci men Type: BLOOD SPECIMENOrdering Facility: [facility] Address: [address] [place] [address] Result Comment: eAG: (Estimated average glucose) is a calculated value from HgbA1c and is surgical sales representative of the average blood glucose level in the last 2-3 month period. Performed By: #### C VFLRS #### [facility] CLIA [id number] [address] [place] [address] [place] HbA1c (Bld) [Mass fraction] 12.3 % High 4.3-5.6 [facility] Comment on above: Order Comment: Zane men Type: BLOOD SPECIMENOrdering Facility: [facility] Address: [address] [place] [address] Result Comment: Amer [place] Diabetes Association guidelines indicate that patients with HgbA1c in the range 5.7-6.4% are at increased risk for development of diabetes, and intervention by lifestyle modification may be beneficial. HgbA1c greater or equal to 6.5% is considered diagnostic of diabetes. Performed By: #### C VFLRS #### [facility] CLIA [id number] [address] [place] [address] [place] Lipid 1996 panelon 5 Cholesterol [Mass/Vol] 182 mg/dL Normal <200 [facility] Comment on above: Order Comment: Zane lorenzo Type: BLOOD SPECIMENOrdering Facility: [facility] Address: [address] [place] [address] Result Comment: <200 mg/dL, Desirable 200-239 mg/dL, Borderline high >239 mg/dL, High Performed By: #### C VFLRS #### [facility] CLIA [id number] [address] [place] [address] [place] Cholesterol in HDL [Mass/Vol] 49 mg/dL Normal >39 [facility] Comment on above: Order Comment: Zane lorenzo Type: BLOOD SPECIMENOrdering Facility: [facility] Address: [address] [place] [address] Result Comment: 40-5 9 mg/dL, Acceptable >59 mg/dL, High: Negative risk factor for coronary heart disease <40 mg/dL, Low: Positive risk factor for coronary heart disease Performed By: #### C VFLRS #### [facility] CLIA [id number] [facility] [place] [address] [place] Cholesterol in LDL [Mass/Vol] 107 mg/dL High <100 [facility] Comment on above: Order Comment: Speci men Type: BLOOD SPECIMENOrdering Facility: [facility] Address: [address] [place] [address] Result Comment: <100 mg/dL, Optimal 100-129 mg/dL, Near optimal/above optimal 130-159 mg/dL, Borderline high 160-189 mg/dL, High >189 mg/dL, Very high Secondary prevention optimal LDL Cholesterol levels are recommended to be < 70 mg/dL Performed By: #### C VFLRS #### [facility] CLIA [id number] [address] [place] [address] [place] Cholesterol in LDL/Cholesterol in HDL [Mass ratio] 2.18 {ratio} Normal <2.54 [facility] Comment on above: Order Comment: Speci men Type: BLOOD SPECIMENOrdering Facility: [facility] Address: [address] [place] [address] Result Comment: Claudia bullock: 1. National Cholesterol Education Program ATP III Guideline At-A-Glance Quick Desk Reference: National Heart, Lung, and Blood [place]. National Institutes of Health. 2001: NIH Publication No. 01-3305. 2. An International Atherosclerosis Society position paper: global recommendations for the management of dyslipidemia: executive summary, Atherosclerosis. 2014: 232(2):410-413. Performed By: #### C VFLRS #### [facility] CLIA [id number] [address] [place] [address] [place] Cholesterol in VLDL [Mass/Vol] 26 mg/dL Normal <30 [facility] Comment on above: Order Comment: Speci men Type: BLOOD SPECIMENOrdering Facility: [facility] Address: [address] [place] [address] Performed By: #### C VFLRS #### [facility] CLIA [id number] [address] [place] [address] [place] Cholesterol non HDL [Mass/Vol] 133 mg/dL High <130 [facility] Comment on above: Order Comment: Speci men Type: BLOOD SPECIMENOrdering Facility: [facility] Address: [address] [place] [address] Result Comment: <130 mg/dL, Optimal 130-159 mg/dL, Near optimal/above optimal 160-189 mg/dL, Borderline high 190-219 mg/dL, High >219 mg/dL, Very high Secondary prevention optimal non HDL Cholesterol levels are recommended to be <100 mg/dL Performed By: #### C VFLRS #### [facility] CLIA [id number] [address] [place] [address] [place] Cholesterol.total/Ch olesterol in HDL [Mass ratio] 3.71 {ratio} Normal <5.10 [facility] Comment on above: Order Comment: Speci men Type: BLOOD SPECIMENOrdering Facility: [facility] Address: [address] [place] [address] Performed By: #### C VFLRS #### [facility] CLIA [id number] [address] [place] [address] [place] FASTING TIME 12 hrs Normal [facility] Comment on above: Order Comment: Speci men Type: BLOOD SPECIMENOrdering Facility: [facility] Address: [address] [place] [address] Performed By: #### C VFLRS #### [facility] CLIA [id number] [address] [place] [address] [place] Triglyceride [Mass/Vol] 131 mg/dL Normal <150 [facility] Comment on above: Order Comment: Speci men Type: BLOOD SPECIMENOrdering Facility: [facility] Address: [address] [place] [address] Result Comment: <150 mg/dL, Normal 150-199 mg/dL, Borderline high 200-499 mg/dL, High >499 mg/dL, Very high Performed By: #### C VFLRS #### [facility] CLIA [id number] [address] [place], [place] [address] [place] CNPHerminia 12-25-2024 SRAVANTHIN Telephone (FPWADS) -- THEOMARTHA ([id number]) 1970 F Date Time Provider Department 12/25/24 ISABEL DAVENPORT During your visit today, we recorded the following information about you: Anastasia Ulloa LPN 12/25/2024 4:21 PM Signed Received [facility] paperwork from victoriano. Placed in provider's inbox for review. Route to [place] fax Isabel Davenport MD 01/12/2025 2:33 PM [...] MA - Fully Assessed Reason for Visit: [facility] Paperwork [4185] Cmt: Victoriano Prescriptions as [...] daily. Dx: Type 2 DM - Uncontrolled E1165 Insulin: No - Lancets lancets Test blood sugar(s) 2 times daily. Dx: Type 2 DM - Uncontrolled 65 Insulin: No - TRUE METRIX GLUCOSE METER [...] Encounter Status:Closed by ANASTASIA ULLOA on 12/25/24 [facility] Duane 11-12-2024 [facility] THEOMARTHA L ([id number]) 1970 F Date Time Provider Department 11/12/24 JORGE HOBSON [facility] During your visit today, we recorded the [...] days, such as taking additional steps for rug cleaner helper air, hygiene, masks, physical distancing, and/or testing [...] Encounter Status:Closed by TED DAVE on 11/12/24 [facility] CNOVon 11-11-2024 CNOV Office Visit ([facility] ) -- MARTHA VENEGAS ([id number]) 1970 F Date Time Provider Department 11/11/24 2:45 PM ENEIDA LOYOLA [facility] During your visit today, we recorded the following information about you: Temperature Pulse Respiration Blood pressure 97.8 degrees 87/minute 18/minute 128/82 Weight 89.2 kg Eneida Loyola PA 11/11/2024 3:21 PM Signed This note was created using [employer]. Subjective Martha Venegas is a 54 year [...] rate and (more content not included)... Normal [facility] COVID AND INFLUENZA A/B AND RSV PCR, ROUTINEon 11-11-2024 SARS-CoV-2 (COVID-19) RNA STEVO+probe Ql (Unsp spec) SARS-COV-2 (AGENT OF COVID-19) RNA: Detected INFLUENZA A RNA: Not detected INFLUENZA B RNA: Not detected RESPIRATORY SYNCYTIAL VIRUS (RSV) RNA: Not detected Abnormal [facility] Comment on above: Performed By: #### C VFLRS #### [facility] CLIA [id number] [address] [place] [address] [place] [address] [place] XR CHEST 2V [...] thoracic spine. IMPRESSION: No acute radiographic abnormality. It Security Consulting Director: STEFANIE Transcribe Date/Time: Nov 11 2024 3:06P Dictated by : KOMAL GALE DO This examination was interpreted and the report reviewed and electronically signed by: KOMAL GALE DO on Nov 11 2024 3:08PM EST [id number] Normal [facility] XR Chest PA and Lateralon IMPRESSION: No acute radiographic abnormality. It Security Consulting Director: [facility] Transcribe Date/Time: Nov 11 2024 3:06P Dictated [...] thoracic spine. DIVISION OF RADIOLOGY Provider, Christina Richter - 11/11/2024 * * *Final Report* * [...] spine. IMPRESSION IMPRESSION: No acute radiographic abnormality. It Security Consulting Director: PSCB Transcribe Date/Time: Nov 11 2024 3:06P Dictated by : KOMAL GALE DO This examination was interpreted and the report reviewed and electronically signed by: KOMAL GALE DO on Nov 11 2024 3:08PM EST [facility] Radiology Study observation (narrative) [facility] XR Chest PA and LateralOrder ed By: Ccf Provider on 11-11-2024 [facility] CNCOon 06-11-2024 CNCO Letter Text Normal [facility] CNOVon 06-11-2024 CNOV Office Visit ([facility]) -- MARTHA VENEGAS ([id number]) 1970 F Date Time Provider Department 06/11/24 2:20 PM MERARI CAMARILLO [facility] During your visit today, we recorded the following information about you: Pulse Respiration Blood pressure Weight 72/minute 16/minute 180/103 93 kg Height 1.626 m Mckenzie Flores MA 06/11/2024 2:18 PM Signed Patient has no cardiac complaints today. Mckenzie Merari Andujar CMA, MD 06/11/2024 2:42 PM Signed Restart [...] town. 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 She was found to have hemianopsia and was taken to the ER for further evaluation. 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 She was admitted to [facility] for further evaluation. Of note, prior [...] of atrial arrhythmias. Patient was referred to [facility] for PFO closure. 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 (more content not included)... Normal [facility] HEMOGLOBIN A1C (POC)on 01-07 HbA1c (Bld) [Mass fraction] 10.5 % Abnormal 4.3 - 5.6 % [facility] Absolute lymphocyte counton 10-22-2022 Lymphocytes Auto (Unsp spec) [#/Vol] 2.28 10*3/uL 0.83-4.51 [facility] Work Phone: Basophil percentageon 2021 Basophils/100 WBC (Bld) 0.2 % 0-1 [facility] Work Phone: Chloride [Moles/Vol] 105 mmol/L 98-107 [facility] Work Phone: Eosinophils/100 WBC (Bld) 1.6 % 0-5 [facility] Work Phone: Glucose [Mass/Vol] 183 mg/dL 74-[address] [facility] Work Phone: Comment on above: Fasting Glucose resu lt greater than or equal to 126 mg/dL suggests DIABETES MELLITUS per A.D.A. criteria. Neutrophils (Bld) [#/Vol] 1.3 10*3/uL 2.0-7.7 [facility] Work Phone: Neutrophils/100 WBC (Bld) 30.4 % 47-70 [facility] Work Phone: Potassium [Moles/Vol] 3.5 mmol/L 3.5-5.1 [facility] Work Phone: Sodium [Moles/Vol] 140 mmol/L 136-[address] [facility] Work Phone: WBC (Bld) [#/Vol] 4.4 10*3/uL 4.4-11.[address] [facility] Work Phone: Blood erythrocytes count (nu mber/volume)on 10-22-2022 RBC (Bld) [#/Vol] 5.13 10*6/uL 4.2-5.4 [facility] Work Phone: Blood hemoglobin measurement (mass/volume)on 10-22-2022 Hemoglobin (Bld) [Mass/Vol] 13.4 g/dL 12.0-15.0 [facility] Work Phone: Blood lymphocytes/100 leukoc yteson 10-22-2022 Lymphocytes/100 WBC (Bld) 52.1 % 19-41 [facility] Work Phone: Blood monocytes/100 leukocyt eson 10-22-2022 Monocytes/100 WBC (Bld) 15.5 % 0-10 [facility] Work Phone: Blood platelet mean volumeon 10-22-2022 Platelet mean volume (Bld) [Entitic vol] 10.8 fL 6.2-12.0 [facility] Work Phone: Determination of erythrocyte mean corpuscular volume (MCV)on 10-22-2022 MCV (RBC) [Entitic vol] 82.7 fL 81-99 [facility] Work Phone: Hematocrit Auto (Bld) [Volum e fraction]on 10-22-2022 Hematocrit (Bld) [Volume fraction] 42.4 % 37-47 [facility] Work Phone: Laboratory - Chemistry and C hemistry - challengeon 10-22-2022 CO2 [Moles/Vol] 30.0 mmol/L 21.0-32.0 [facility] Work Phone: Urea nitrogen/Creatinine [Mass ratio] 16.3 mg/mg 10-20 [facility] Work Phone: Laboratory - Hematology and Cell countson 10-22-2022 Erythrocyte distribution width (RBC) [Entitic vol] 47.3 fL 35.1-43.9 [facility] Work Phone: Erythrocyte distribution width (RBC) [Ratio] 15.5 % 11.6-14.6 [facility] Work Phone: Immature granulocytes/100 WBC (Bld) 0.200 % 0.0-0.9 [facility] Work Phone: Comment on above: IG% - Immature Granu locytes (promyelocytes, myelocytes and metamyelocytes) > 1% indicates that a LEFT SHIFT is Present. MCH (RBC) [Entitic mass] 26.1 pg 27.0-32.0 [facility] Work Phone: Nucleated RBC/100 WBC (Bld) [Ratio] 0 % 0-5 [facility] Work Phone: [phone] MCHC Auto (RBC) [Mass/Vol]on 10-22-2022 MCHC (RBC) [Mass/Vol] 31.6 g/dL 32-36 [facility] Work Phone: No Panel Informationon 10-22 Estimated Creatinine Clearance Calc 56.67 ml/min [facility] Work Phone: Estimated GFR (MDRD) Amer 76 mL/min >60 [facility] Work Phone: Comment on above: GFR Calc Estimated GFR (MDRD) Non-Af Amer 63 mL/min >60 [facility] Work Phone: Comment on above: Non- GFR Calc Troponin I High Sensitivity 8 pg/mL 3.0-54.0 [facility] Work Phone: Comment on above: Please Note: New Ester t Units and Gender Specific Reference Ranges. For more information see Policy Stat Procedure [place] High Sensitivity Troponin (TNIH) and attachments. Platelets bldon 10-22-2022 Platelets (Bld) [#/Vol] 291 10*3/uL 150-450 [facility] Work Phone: [phone] Serum or plasma calcium loulou urement (mass/volume)on 10-22-2022 Calcium [Mass/Vol] 8.6 mg/dL 8.5-10.[address] [facility] Work Phone: [phone] Serum or plasma creatinine m easurement (mass/volume)on 10-22-2022 Creatinine [Mass/Vol] 0.98 mg/dL 0.55-1.02 [facility] Work Phone: Comment on above: The validity of the calculated GFR & GFRAA in patients over 70 years has not been determined. Clinical correlation is essential. Serum or plasma urea nitroge n measurement (mass/volume)on 10-22-2022 Urea nitrogen [Mass/Vol] 16 mg/dL 05-22 [facility] Work Phone: Thin prep Papanicolaou smear with manual screeningon 10-22-2022 Thin prep Papanicolaou smear with manual screening 5 -15 [facility] Work Phone: Influenza virus A and B RNA and SARS-CoV-2 (COVID-19) N gene panel STEVO+probe (Resp)on 09-06-2022 FLUAV RNA STEVO+probe Ql (Unsp spec) Negative Negative for Influenza A by RT-PCR [facility] FLUBV RNA STEVO+probe Ql (Unsp spec) Negative Negative for Influenza B by RT-PCR [facility] SARS-CoV-2 (COVID-19) RNA STEVO+probe Ql (Resp) SARS-CoV-2 (Agent of COVID-19) Not Detected by RT-PCR or equivalent method. Not Detected [facility] Basic Metabolic Panelon 01-03 Calcium mass conc 9.2 mg/dL Normal 8.4-10.4 [facility] Comment on above: Performed By: #### H EMDF, HA1C2, LIPD2, BMP3 #### [facility] [address] [place] [address] Glucose mass conc 110 mg/dL High 70-100 [facility] Comment on above: Performed By: #### H EMDF, HA1C2, LIPD2, BMP3 #### [facility] [address] [place] [address] Urea nitrogen mass conc 24 mg/dL High 7-20 [facility] Comment on above: Performed By: #### H EMDF, HA1C2, LIPD2, BMP3 #### [facility] [address] [place] [address] Anion gap molar conc 12 Normal [facility] Comment on above: Performed By: #### H EMDF, HA1C2, LIPD2, BMP3 #### [facility] [address] [place], [place] CO2 molar conc 31 mmol/L High 22-30 [facility] Comment on above: Performed By: #### H EMDF, HA1C2, LIPD2, BMP3 #### [address] Creatinine mass conc 1.17 mg/dL Normal 0.52-1.[address] [facility] Comment on above: Performed By: #### H EMDF, HA1C2, LIPD2, BMP3 #### [address] GFR/1.73 sq M predicted among blacks MDRD vol rate/area (S/P/Bld) 59.2 mL/min/{1.73_m2} Normal >60 [facility] Comment on above: Performed By: #### H EMDF, HA1C2, LIPD2, BMP3 #### [place] [address] [place], [place] GFR/1.73 sq M predicted among non-blacks MDRD vol rate/area (S/P/Bld) 48.9 mL/min/{1.73_m2} Normal >60 [facility] Comment on above: Result Comment: Sour ce- MDRD equation with creatinine calibration to IDMS(NKDEP) eGFR not recommended for drug dose adjustment Performed By: #### H EMDF, HA1C2, LIPD2, BMP3 #### [address] Chloride molar conc 99 mmol/L Normal 98-107 [facility] Comment on above: Performed By: #### H EMDF, HA1C2, LIPD2, BMP3 #### [address] Potassium molar conc 3.3 mmol/L Low 3.5-5.[address] [facility] Comment on above: Performed By: #### H EMDF, HA1C2, LIPD2, BMP3 #### [address] Sodium molar conc 142 mmol/L Normal 135-145 [facility] Comment on above: Performed By: #### H EMDF, HA1C2, LIPD2, BMP3 #### [address] [address] Echo 2D/3D LB w/wo Contrast on 01-20-2019 Echo 2D/3D LB w/wo Contrast Patient Name: MARTHA VENEGAS Ultrasound Exam Date/Time 01/20/2019 15:03:36 EDT Exam Echo 2D/3D LB w/wo Contrast Ordering Physician MD ALIZA, LYNN Trent Accession Number [id number] Reason For Exam CVA Report TRANSESOPHAGEAL ECHOCARDIOGRAM PATIENT: Martha Venegas STUDY DATE: 01/20/2019 : 1970 AGE: 48 HT/WT: 170.2 cm (67 92.3 kg (203 in) lb) GENDER: F BP: 143 / 92 LOCATION: [facility] PATIENT [facility] STATUS: *ORDERING PHYSICIAN: Lynn Montez *READING PHYSICIAN: Lynn Montez *HOT WATER HEATER INSTALLER: Jaskaran ALVARADO --- INDICATIONS: CVA. --- HISTORY: Echocardiography (01/17/2019). --- CONCLUSIONS SUMMARY: 1. Left ventricle: Systolic function is normal. The estimated ejection fraction is 55%. 2. Left atrium: No evidence of thrombus in the atrial cavity or appendage. 3. Atrial septum: Color Doppler shows a fxlmk-ep-adys shunt. There is evidence of right to [...] transesophageal probe was inserted by the attending felting machine operator helper without difficulty. Intrvenous imaging enhancement Agitated saline [...] patent foramen ovale. Color Doppler shows a rnfau-vo-pjop shunt. There is evidence of right to [...] Time: 01/20/2019 4:41 pm Signed by: MD ABARMS MUHAMMAD A Normal [facility] Glucose,Bedsideon 01-20-2019 Glucose mass conc 100 mg/dL Normal 70-100 [facility] Comment on above: Result Comment: Test performed by glucose meter. Results may be 10%-15% lower than serum/plasma values. (CLIA ID [id number]) Performed By: #### H EMDF, HA1C2, LIPD2, BMP3 #### [facility] [address] [place] [address] Glucose mass conc 114 mg/dL High 70-100 [facility] Comment on above: Result Comment: Test performed by glucose meter. Results may be 10%-15% lower than serum/plasma values. (CLIA ID [id number]) Performed By: #### H EMDF, HA1C2, LIPD2, BMP3 #### [facility] [address] [place] [address] Glucose,Bedsideon 01-19-2019 Glucose mass conc 117 mg/dL High 70-100 [facility] Comment on above: Result Comment: Test performed by glucose meter. Results may be 10%-15% lower than serum/plasma values. (CLIA ID [id number]) Performed By: #### H EMDF, HA1C2, LIPD2, BMP3 #### [facility] [address] [place] [address] Glucose mass conc 98 mg/dL Normal 70-100 [facility] Comment on above: Result Comment: Test performed by glucose meter. Results may be 10%-15% lower than serum/plasma values. (CLIA ID [id number]) Performed By: #### H EMDF, HA1C2, LIPD2, BMP3 #### [facility] [address] [place] [address] Glucose mass conc 111 mg/dL High 70-100 [facility] Comment on above: Result Comment: Test performed by glucose meter. Results may be 10%-15% lower than serum/plasma values. (CLIA ID [id number]) Performed By: #### H EMDF, HA1C2, LIPD2, BMP3 #### [facility] [address] [place] [address] Glucose mass conc 154 mg/dL High 70-100 [facility] Comment on above: Result Comment: Test performed by glucose meter. Results may be 10%-15% lower than serum/plasma values. (CLIA ID [id number]) Performed By: #### H EMDF, HA1C2, LIPD2, BMP3 #### [facility] [address] [place] [address] Glucose,Bedsideon 01-18-2019 Glucose mass conc 123 mg/dL High 70-100 [facility] Comment on above: Result Comment: Test performed by glucose meter. Results may be 10%-15% lower than serum/plasma values. (CLIA ID [id number]) Performed By: #### H EMDF, HA1C2, LIPD2, BMP3 #### [facility] [address] [place] [address] Glucose mass conc 231 mg/dL High 70-100 [facility] Comment on above: Result Comment: Test performed by glucose meter. Results may be 10%-15% lower than serum/plasma values. (CLIA ID [id number]) Performed By: #### H EMDF, HA1C2, LIPD2, BMP3 #### [facility] [address] [place] [address] Glucose mass conc 84 mg/dL Normal 70-100 [facility] Comment on above: Result Comment: Test performed by glucose meter. Results may be 10%-15% lower than serum/plasma values. (CLIA ID [id number]) Performed By: #### H EMDF, HA1C2, LIPD2, BMP3 #### [facility] [address] [place] [address] Glucose mass conc 121 mg/dL High 70-100 [facility] Comment on above: Result Comment: Test performed by glucose meter. Results may be 10%-15% lower than serum/plasma values. (CLIA ID [id number]) Performed By: #### H EMDF, HA1C2, LIPD2, BMP3 #### [facility] [address] [place] [address] MRA Head w/o Contraston 01-03 MRA Head w/o Contrast Patient Name: MARTHA VENEGAS MRI Exam Date/Time 01/17/2019 18:34:49 EDT Exam MRA Head w/o Contrast Ordering Physician MD AMBAR, [facility] Accession Number [id number] CPT4 Codes 59081 () Reason For Exam STROKE Report MRA HEAD WITHOUT CONTRAST CLINICAL INDICATION: Stroke Noncontrast three-dimensional [id number] MRA images of the intracranial circulation were [...] the intracranial circulation. Report Dictated on Workstation: [facility] Final Dictated: 01/17/2019 10:54 pm Dictating Physician: MD PIPER JONATHAN R Signed Date and Time: 01/17/2019 10:56 pm Signed by: MD PIPER JONATHAN R Transcribed Date and Time: 01/17/2019 10:54 Normal [facility] MRA Neck w/ + w/o Contraston 01-18-2019 MRA Neck w/ + w/o Contrast Patient Name: MARTHA VENEGAS MRI Exam Date/Time 01/17/2019 18:34:49 EDT Exam MRA Neck w/ + w/o Contrast Ordering Physician [id number] ELINA JERRY Accession Number [id number] CPT4 Codes 58572 () Reason For Exam Stroke, L visual loss Report MRA NECK WITH AND WITHOUT CONTRAST CLINICAL INDICATION: Stroke Noncontrast 2-D [id number] MR angiographic images of the neck were [...] significant vertebrobasilar stenosis. Report Dictated on Workstation: [facility] Final Dictated: 01/17/2019 10:56 pm Dictating Physician: MD PIPER JONATHAN R Signed Date and Time: 01/17/2019 10:58 pm Signed by: MD PIPER JONATHAN R Transcribed Date and Time: 01/17/2019 10:56 Normal [facility] MRI Brain w/ + w/o Contrasto n 01-18-2019 MRI Brain w/ + w/o Contrast Patient Name: MARTHA VENEGAS MRI Exam Date/Time 01/17/2019 18:34:49 EDT Exam MRI Brain w/ + w/o Contrast Ordering Physician [id number] DAY Accession Number [id number] CPT4 Codes 68711 () Reason For Exam stroke, L visual [...] of gadolinium contrast. Report Dictated on Workstation: [facility] Final Dictated: 01/17/2019 10:49 pm Dictating Physician: MD PIPER JONATHAN R Signed Date and Time: 01/17/2019 10:54 pm Signed by: MD PIPER JONATHAN R Transcribed Date and Time: 01/17/2019 10:49 Normal [facility] Add on test from HISon 01-17 Add on test from HIS Accepted Normal [facility] Comment on above: Result Comment: Spec imen available & acceptable for analysis. Performed By: #### A DDON #### [address] [address] Basic Metabolic Panelon 01-03 Calcium mass conc 9.4 mg/dL Normal 8.4-10.4 [facility] Comment on above: Performed By: #### H EMDF, HA1C2, LIPD2, BMP3 #### [address] Anion gap molar conc [address] [facility] Comment on above: Performed By: #### H EMDF, HA1C2, LIPD2, BMP3 #### [address] CO2 molar conc 28 mmol/L Normal 22-30 [facility] Comment on above: Performed By: #### H EMDF, HA1C2, LIPD2, BMP3 #### [address] Creatinine mass conc 0.84 mg/dL Normal 0.52-1.[address] [facility] Comment on above: Performed By: #### H EMDF, HA1C2, LIPD2, BMP3 #### [address] GFR/1.73 sq M predicted among blacks MDRD vol rate/area (S/P/Bld) mL/min/{1.73_m2} Normal >60 [facility] Comment on above: Performed By: #### H EMDF, HA1C2, LIPD2, BMP3 #### [address] [address] [place], [place] GFR/1.73 sq M predicted among non-blacks MDRD vol rate/area (S/P/Bld) mL/min/{1.73_m2} Normal >60 [facility] Comment on above: Result Comment: Sour ce- MDRD equation with creatinine calibration to IDMS(NKDEP) eGFR not recommended for drug dose adjustment Performed By: #### H EMDF, HA1C2, LIPD2, BMP3 #### [address] Glucose mass conc 155 mg/dL High 70-100 [facility] Comment on above: Performed By: #### H EMDF, HA1C2, LIPD2, BMP3 #### [facility] [address] [place] [address] Urea nitrogen mass conc 19 mg/dL Normal 7-20 [facility] Comment on above: Performed By: #### H EMDF, HA1C2, LIPD2, BMP3 #### [facility] [address] [place] [address] Chloride molar conc 97 mmol/L Low 98-107 [facility] Comment on above: Performed By: #### H EMDF, HA1C2, LIPD2, BMP3 #### [facility] [address] [place] [address] Potassium molar conc 3.3 mmol/L Low 3.5-5.[address] [facility] Comment on above: Performed By: #### H EMDF, HA1C2, LIPD2, BMP3 #### [facility] [address] [place] [address] Sodium molar conc 139 mmol/L Normal 135-145 [facility] Comment on above: Performed By: #### H EMDF, HA1C2, LIPD2, BMP3 #### [facility] [address] [place] [address] Echo Complete w/wo Contrasto n 01-17-2019 Echo Complete w/wo Contrast Patient Name: MARTHA VENEGAS Ultrasound Exam Date/Time 01/17/2019 15:33:54 EDT Exam Echo Complete w/wo Contrast Ordering Physician Jamie AMADOR PALLAVI Accession Number [id number] Reason For Exam stroke Report TRANSTHORACIC ECHOCARDIOGRAM PATIENT: Martha Venegas STUDY DATE: 01/17/2019 : 1970 AGE: 48 HT/WT: 165.1 cm (65 92.1 kg (202.6 in) lb) GENDER: F BP: 137 / 95 LOCATION: [facility] PATIENT Observation [facility] STATUS: *ORDERING PHYSICIAN: * Stacey Amador *READING PHYSICIAN: * Wesley Gracia, *HOT WATER HEATER INSTALLER: * Raymond Gotti RDCS, MD AE --- [...] Signed by: MD GRACIA STEPHEN A Normal [facility] Glucose,Bedsideon 01-17-2019 Glucose mass conc 117 mg/dL High 70-100 [facility] Comment on above: Result Comment: Test performed by glucose meter. Results may be 10%-15% lower than serum/plasma values. (CLIA ID [id number]) Performed By: #### H EMDF, HA1C2, LIPD2, BMP3 #### [facility] [employer] [address] [address] [place] [address] Glucose mass conc 125 mg/dL High 70-100 [facility] Comment on above: Result Comment: Test performed by glucose meter. Results may be 10%-15% lower than serum/plasma values. (CLIA ID [id number]) Performed By: #### B GLU #### [facility] [employer] [facility] [place] [address] Glucose mass conc 106 mg/dL High 70-100 [facility] Comment on above: Result Comment: Test performed by glucose meter. Results may be 10%-15% lower than serum/plasma values. (CLIA ID [id number]) Performed By: #### B GLU #### [facility] [employer] [facility] [place] [address] Glucose mass conc 132 mg/dL High 70-100 [facility] Comment on above: Result Comment: Test performed by glucose meter. Results may be 10%-15% lower than serum/plasma values. (CLIA ID [id number]) Performed By: #### B GLU #### [address] [address] [place] [address] Hemoglobin A1Con 01-17-2019 Hemoglobin A1c/Hemoglobin.total mass fraction (Bld) 240 mg/dL Normal [facility] Comment on above: Performed By: #### H EMDF, HA1C2, LIPD2, BMP3 #### [address] Hemoglobin A1c/Hemoglobin.total mass fraction (Bld) 10.0 % High 4.0-5.7 [facility] Comment on above: Result Comment: --Hg bA1C levels may not be accurate in patients who have renal disease, received recent blood transfusions, are anemic, or who have dyshemoglobinemia. Performed By: #### H EMDF, HA1C2, LIPD2, BMP3 #### [address] Hemogram w/ Autodiffon 01-17 Abs Baso Cnt 0.0 10*3/uL Normal 0.0-0.2 [facility] Comment on above: Performed By: #### H EMDF, HA1C2, LIPD2, BMP3 #### [address] Abs Neutrophile Cnt 5.3 10*3/uL Normal 1.8-7.[address] [facility] Comment on above: Performed By: #### H EMDF, HA1C2, LIPD2, BMP3 #### [address] Basophils/100 WBC (Bld) 0.4 % Normal 0.0-2.0 [facility] Comment on above: Performed By: #### H EMDF, HA1C2, LIPD2, BMP3 #### [address] Eosinophils #/vol (Bld) 0.3 10*3/uL Normal 0.0-0.5 [facility] Comment on above: Performed By: #### H EMDF, HA1C2, LIPD2, BMP3 #### [address] Eosinophils/100 WBC (Bld) 3.0 % Normal 1.0-6.0 [facility] Comment on above: Performed By: #### H EMDF, HA1C2, LIPD2, BMP3 #### [address] Erythrocyte distribution width Ratio (RBC) 14.0 % Normal 11.5-14.5 [facility] Comment on above: Performed By: #### H EMDF, HA1C2, LIPD2, BMP3 #### [address] [address] [place], [place] Granulocytes/100 WBC (Bld) 57.6 % Normal 40.0-80.0 [facility] Comment on above: Performed By: #### H EMDF, HA1C2, LIPD2, BMP3 #### [address] [address] [address] [place], [place] Hematocrit Volume Fraction (Bld) 41.2 % Normal 35.0-47.0 [facility] Comment on above: Performed By: #### H EMDF, HA1C2, LIPD2, BMP3 #### [address] [address] [place], [place] Hemoglobin mass conc (Bld) 13.6 g/dL Normal 11.7-16.0 [facility] Comment on above: Performed By: #### H EMDF, HA1C2, LIPD2, BMP3 #### [address] [address] [place], [place] Lymphocytes #/vol (Bld) 2.7 10*3/uL Normal 1.0-4.3 [facility] Comment on above: Performed By: #### H EMDF, HA1C2, LIPD2, BMP3 #### [address] Lymphocytes/100 WBC (Bld) 28.7 % Normal 20.0-40.0 [facility] Comment on above: Performed By: #### H EMDF, HA1C2, LIPD2, BMP3 #### [address] [place], [place] MCH Entitic mass (RBC) 26.6 pg Normal 26.0-34.0 [facility] Comment on above: Performed By: #### H EMDF, HA1C2, LIPD2, BMP3 #### [address] MCHC mass conc (RBC) 33.0 % Normal 32.0-36.[address] [facility] Comment on above: Performed By: #### H EMDF, HA1C2, LIPD2, BMP3 #### [address] [address] [address] [place], [place] MCV Entitic volume (RBC) 80.8 fL Normal 79.0-98.0 [facility] Comment on above: Performed By: #### H EMDF, HA1C2, LIPD2, BMP3 #### [address] [place], [place] Monocytes #/vol (Bld) 1.0 10*3/uL High 0.0-0.8 [facility] Comment on above: Performed By: #### H EMDF, HA1C2, LIPD2, BMP3 #### [address] Monocytes/100 WBC (Bld) 10.3 % High 2.0-10.0 [facility] Comment on above: Performed By: #### H EMDF, HA1C2, LIPD2, BMP3 #### [address] Platelet mean volume Entitic volume (Bld) 8.6 fL Normal 7.4-10.4 [facility] Comment on above: Performed By: #### H EMDF, HA1C2, LIPD2, BMP3 #### [address] Platelets #/vol (Bld) 328 10*3/uL Normal 140-440 [facility] Comment on above: Performed By: #### H EMDF, HA1C2, LIPD2, BMP3 #### [address] RBC #/vol (Bld) 5.09 10*6/uL Normal 3.80-5.20 [facility] Comment on above: Performed By: #### H EMDF, HA1C2, LIPD2, BMP3 #### [address] WBC #/vol (Bld) 9.2 10*3/uL Normal 3.6-10.7 [facility] Comment on above: Performed By: #### H EMDF, HA1C2, LIPD2, BMP3 #### [address] Lipid Panelon 01-17-2019 Cholesterol in HDL mass conc 36 mg/dL Low 40-60 [facility] Comment on above: Performed By: #### H EMDF, HA1C2, LIPD2, BMP3 #### [address] Cholesterol.total/Ch olesterol in HDL mass ratio 5 Normal [facility] Comment on above: Result Comment: Ref Range: < 3 Low Risk for CHD 3-6 Mod Risk for CHD > 6 High Risk for CHD Performed By: #### H EMDF, HA1C2, LIPD2, BMP3 #### [address] Protein mass conc 121 mg/dL Abnormal <100 [facility] Comment on above: Performed By: #### H EMDF, HA1C2, LIPD2, BMP3 #### [address] Cholesterol mass conc 195 mg/dL Normal < 200 [facility] Comment on above: Performed By: #### H EMDF, HA1C2, LIPD2, BMP3 #### [address] Triglyceride mass conc 192 mg/dL Abnormal <150 [facility] Comment on above: Performed By: #### H EMDF, HA1C2, LIPD2, BMP3 #### [address] Troponin Ion 01-17-2019 Troponin I.cardiac mass conc ng/mL Normal 0.000-0.034 [facility] Comment on above: Result Comment: 0.04 6 - 0.400 = Indeterminate > 0.400 = Consider Myocardial Injury Performed By: #### T ROPN #### [address] ALLIED HEALTHon 01-16-2019 ALLIED HEALTH HNO ID: [id number] Author: CHARANJIT Anna (Ct) Service: ? Author Type: Clinical Saw Cleaner Type: Allied Health Filed: 01/16/2019 5:55 PM [...] PERIPHERAL IV DATA: Not applicable SIGNED BY: CHARANJIT Anna January 16, 2019 5:55 PM Normal [facility] APTTon 01-16-2019 aPTT Coag time (Bld) 21.4 s Low 23.0-32.4 [facility] Comment on above: Result Comment: Unfr [...] laboratory APTT reagent in use throughout the [facility]. Performed By: #### C BCDIF, PT, PTT, CMP #### [facility] [address] [place] [phone] CBC and Differentialon 01-16 Abs Baso <0.03 Normal <0.[address] [facility] Comment on above: Performed By: #### C BCDIF, PT, PTT, CMP #### [facility] [address] [place] [phone] Abs Emanuel 0.96 k/uL High <0.[address] [facility] Comment on above: Performed By: #### C BCDIF, PT, PTT, CMP #### [facility] [address] [place], [place] [address] Abs Neut 6.92 k/uL Normal 1.45-7.[address] [facility] Comment on above: Performed By: #### C BCDIF, PT, PTT, CMP #### [facility] [address] [place], [place] [phone] Basophils/100 WBC (Bld) 0.2 % Normal [facility] Comment on above: Performed By: #### C BCDIF, PT, PTT, CMP #### [facility] [address] [address] Eosinophils #/vol (Bld) 0.35 10*3/uL Normal <0.[address] [facility] Comment on above: Performed By: #### C BCDIF, PT, PTT, CMP #### [facility] [address] [place] [address] Eosinophils/100 WBC (Bld) 3.2 % Normal [facility] Comment on above: Performed By: #### C BCDIF, PT, PTT, CMP #### [facility] [address] [place] [address] Erythrocyte distribution width Ratio (RBC) 14.5 % Normal 11.5-15.[address] [facility] Comment on above: Performed By: #### C BCDIF, PT, PTT, CMP #### [facility] [address] [place] [address] Hematocrit Volume Fraction (Bld) 44.9 % Normal 36.0-46.[address] [facility] Comment on above: Performed By: #### C BCDIF, PT, PTT, CMP #### [facility] [address] [place] [address] Hemoglobin mass conc (Bld) 14.1 g/dL Normal 11.5-15.[address] [facility] Comment on above: Performed By: #### C BCDIF, PT, PTT, CMP #### [facility] [address] [place] [address] Lymphocytes #/vol (Bld) 2.77 10*3/uL Normal 1.00-4.[address] [facility] Comment on above: Performed By: #### C BCDIF, PT, PTT, CMP #### [facility] [address] [place], [place] [phone] Lymphocytes/100 WBC (Bld) 25.1 % Normal [facility] Comment on above: Performed By: #### C BCDIF, PT, PTT, CMP #### [facility] [address] [address] MCH Entitic mass (RBC) 25.8 pG Low 26.0-34.[address] [facility] Comment on above: Performed By: #### C BCDIF, PT, PTT, CMP #### [facility] [address] [address] MCHC mass conc (RBC) 31.4 g/dL Normal 30.5-36.0 [facility] Comment on above: Performed By: #### C BCDIF, PT, PTT, CMP #### [facility] [address] [address] MCV Entitic volume (RBC) 82.2 fL Normal 80.0-100.[address] [facility] Comment on above: Performed By: #### C BCDIF, PT, PTT, CMP #### [facility] [address] [place] [address] Monocytes/100 WBC (Bld) 8.7 % Normal [facility] Comment on above: Performed By: #### C BCDIF, PT, PTT, CMP #### [facility] [address] [place] [address] Neutrophils/100 WBC (Bld) 62.8 % Normal [facility] Comment on above: Performed By: #### C BCDIF, PT, PTT, CMP #### [facility] [address] [place] [address] Platelet mean volume Entitic volume (Bld) 11.2 fL Normal 9.0-12.[address] [facility] Comment on above: Performed By: #### C BCDIF, PT, PTT, CMP #### [facility] [address] [place] [address] Platelets #/vol (Bld) 274 10*3/uL Normal 150-[address] [facility] Comment on above: Performed By: #### C BCDIF, PT, PTT, CMP #### [facility] [address] [place] [address] RBC #/vol (Bld) 5.46 10*6/uL High 3.90-5.[address] [facility] Comment on above: Performed By: #### C BCDIF, PT, PTT, CMP #### [facility] [address] [phone] WBC #/vol (Bld) 11.02 10*3/uL High 3.70-11.[address] [facility] Comment on above: Performed By: #### C BCDIF, PT, PTT, CMP #### [facility] [address] [phone] CT BRAIN WO IVCONon 01-17-[address] BRAIN WO IVCON * * *Final Report* * * DATE OF EXAM: Jan 16 2019 5:54PM [place] 0504 - CT BRAIN WO IVCON / [...] are unremarkable. IMPRESSION: No acute intracranial process. It Security Consulting Director: PSCB Transcribe Date/Time: Jan 16 2019 5:57P Dictated by : VIVIAN WARD MD This examination was interpreted and the report reviewed and electronically signed by: VIVIAN WARD MD on Jan 16 2019 5:59PM EST [id number] Normal [facility] Comp Metabolic Panelon 01-16 Albumin mass conc 4.6 g/dL Normal 3.9-4.[address] [facility] Comment on above: Performed By: #### C BCDIF, PT, PTT, CMP #### [facility] [address] [address] ALP enzyme act/vol 71 U/L Normal 34-[address] [facility] Comment on above: Performed By: #### C BCDIF, PT, PTT, CMP #### [facility] [address] [address] ALT enzyme act/vol 38 U/L Normal 7-[address] [facility] Comment on above: Performed By: #### C BCDIF, PT, PTT, CMP #### [facility] [address] [address] Anion gap molar conc 16 mmol/L Normal 9-18 [facility] Comment on above: Performed By: #### C BCDIF, PT, PTT, CMP #### [facility] [address] [address] AST enzyme act/vol 27 U/L Normal 13-[address] [facility] Comment on above: Performed By: #### C BCDIF, PT, PTT, CMP #### [facility] [address] [address] Bilirubin mass conc 0.3 mg/dL Normal 0.2-1.3 [facility] Comment on above: Performed By: #### C BCDIF, PT, PTT, CMP #### [facility] [address] [address] Calcium mass conc 9.9 mg/dL Normal 8.5-10.[address] [facility] Comment on above: Performed By: #### C BCDIF, PT, PTT, CMP #### [facility] [address] [address] Chloride molar conc 96 mmol/L Low 97-105 [facility] Comment on above: Performed By: #### C BCDIF, PT, PTT, CMP #### [facility] [address] [address] CO2 molar conc 25 mmol/L Normal 22-[address] [facility] Comment on above: Performed By: #### C BCDIF, PT, PTT, CMP #### [facility] [address] [address] Creatinine mass conc 0.92 mg/dL Normal 0.58-0.96 [facility] Comment on above: Performed By: #### C BCDIF, PT, PTT, CMP #### [facility] [address] [facility] [phone] eGFR- Amer. >[address] [facility] Comment on above: Performed By: #### C BCDIF, PT, PTT, CMP #### [facility] [address] [facility] [phone] GFR/1.73 sq M predicted among non-blacks MDRD vol rate/area (S/P/Bld) mL/min/{1.73_m2} Normal [facility] Comment on above: Result Comment: eGFR [...] #### C BCDIF, PT, PTT, CMP #### [facility] [address] [facility] [phone] Glucose mass conc 145 mg/dL High 74-[address] [facility] Comment on above: Result Comment: The [place] [employer] (ADA) provides guidance for cutoff [...] Standards of Medical Care in Diabetes 2016, [place] [employer]. Diabetes Care. 2016.39(Suppl 1). Performed By: #### C BCDIF, PT, PTT, CMP #### [facility] [address] [facility] [phone] Potassium molar conc 3.5 mmol/L Low 3.7-5.1 [facility] Comment on above: Performed By: #### C BCDIF, PT, PTT, CMP #### [facility] [address] [facility] [phone] Protein mass conc 8.4 g/dL High 6.3-8.[address] [facility] Comment on above: Performed By: #### C BCDIF, PT, PTT, CMP #### [facility] [address] [facility] [phone] Sodium molar conc 137 mmol/L Normal 136-[address] [facility] Comment on above: Performed By: #### C BCDIF, PT, PTT, CMP #### [facility] [address] [facility] [phone] Urea nitrogen mass conc 20 mg/dL Normal 7-[address] [facility] Comment on above: Performed By: #### C BCDIF, PT, PTT, CMP #### [facility] [address] [facility] [phone] ECG COMPLETEon 01-16-2019 ECG COMPLETE NAME : MARTHA VENEGAS PID : [id number] : 1970 Gender : Female Race : ORD : [id number] Procedure Date : Jan 16 2019 18:02:19 Edit Date : Jan 17 2019 08:54:46 Diagnosis:NORMAL SINUS RHYTHM MINIMAL VOLTAGE CRITERIA FOR LVH, MAY BE NORMAL VARIANT BORDERLINE ECG NO PREVIOUS ECGS AVAILABLE agree Confirmed by MD ESPINOZA CHRISTOPHER ([id number]), editor in chief newspaper JUAN FRANCISCO TAMAYO ([id number]) on 01/17/2019 8:54:44 AM Ventricular Rate : 86 BPM Atrial Rate : 86 BPM P-R Interval : 138 ms QRS Duration : 82 ms Q-T Interval : 380 ms QTC Calculation(Bezet) : 454 ms P Bethel : 32 degrees R Bethel : -3 degrees T Bethel : 37 degrees Test Reason : Chest Pain Location : 1 : ER ED Overread By : MD ESPINOZA CHRISTOPHER Edited By : JUAN FRANCISCO TAMAYO Referred By : , Acquired by : Janey GUARDADO [facility] ED NOTEon 01-16-2019 ED NOTE HNO ID: [id number] Author: Zhane (Rn) KELLEN Guardado Service: ? Author Type: Registered Nurse Type: ED Notes Filed: 01/16/2019 6:37 PM Note Text: Pt was explained the need for admit to hospital and need to transfer Normal [facility] ED NOTE HNO ID: [id number] Author: Zhane (Rn) KELLEN Guardado Service: ? Author Type: Registered Nurse Type: ED Notes Filed: 01/16/2019 5:42 PM Note Text: C/o of lightheadedness and dizzeness for 1 month and blurred vision Normal [facility] ED NOTE HNO ID: [id number] Author: Opal MarroquinRn) KELLEN Fletcher Service: ? Author Type: Registered Nurse Type: ED Notes Filed: 01/16/2019 4:49 PM Note Text: Patient presents [facility] door with vision issues and need for MRI, patient states it all started over a month ago with some lightheadedness, vision is getting worse over the past 2 weeks. [facility] ED PROV NOTEon 01-16-2019 Protein mass conc HNO ID: [id number] Author: Dandre Espinoza DO Service: Emergency Medicine Author Type: Physician Type: ED Provider Notes Filed: 01/18/2019 12:52 AM Note Text: ED Provider Note Patient Name: Martha Venegas SERVICE DATE: 01/16/19 History Patient presents with: Blurred Vision: sent over from [facility] for an MRI, been having these vision [...] has a diplopia. She was saw an clam dredger today who diagnosed her with left-sided homonymous [...] 25.8 (*) 26.0 - 34.0 pG Abs Emanuel 0.96 (*) <0.87 k/uL All other components [...] signs reviewed Triage note reviewed Placed on supervisor telephone clerks Discussed with accepting physician at [facility] Dr. Chambers - agreeable to admission/transfer Patient presented to [...] evaluation. She would like to go to [facility]. The patient will be transferred. She stable at this time. Dr. Chambers is accepting. The patient was TRANSFERRED to: [facility] Condition at time of disposition: stable SIGNATURE: KAREN Carrizales (Pa) 01/16/192012 Attending Note I have personally performed a face to face assessment of the patient and have reviewed the PA/WHEEL POLISHER note. My bradshaw findings include: History is [...] gait instability. She was evaluated by an product technology scientist today and was noted to have left [...] normal sinus rhythm. Patient be transferred to [facility] per her request for further evaluation of potential subacute stroke as the cause of her visual disturbance. Patient updated and agreeable to current plan of care. All questions answered bedside. Transfer. Other additions or changes: As edited - bold type Signature: Dandre Espinoza DO Date: 01/18/2019 Time: 12:48 AM Dandre Espinoza DO 01/18/19 0052 [facility] Protimeon 01-16-2019 Prothrombin time (PT) Coag time (PPP) 9.7 s Normal 9.7-13.[address] [facility] [facility] Comment on above: Performed By: #### C BCDIF, PT, PTT, CMP #### [facility] [address] [facility] [phone] Prothrombin time (PT) Coag time (PPP) s Low 0.9-1.[address] [facility] Comment on above: Result Comment: Denisse min K Antagonist (VKA) Therapeutic Range: INR 2 to 3 (Target INR of 2.5) Note: For patients treated with VKA drugs, such as warfarin, the [employer] 2012 Guideline recommends [...] 2.5 to 3.5 (target INR of 3). Jimyatt GH, et al. Chest 2012, 141:7S-47S Steven RA, et al. JAC 2017, 70: 252-289 Performed By: #### C BCDIF, PT, PTT, CMP #### [facility] [address] [facility] [phone] Troponin Ton 01-16-2019 Troponin T.cardiac mass conc ug/L Normal 0.000-0.[address] [facility] Comment on above: Performed By: #### T NT #### [facility] [address] [facility] [phone] XR CHEST 1V FRONTAL PORTon 0 01-16-2019 [...] is unremarkable. 4. Other: Bony structures unremarkable. It Security Consulting Director: PSCB Transcribe Date/Time: Jan 16 2019 5:31P Dictated by : NEYMAR SEVERINO DO This examination was interpreted and the report reviewed and electronically signed by: NEYMAR SEVERINO DO on Jan 16 2019 5:32PM EST [id number] Normal [facility] VISUAL FIELD 30-2 OU (BOTH E YES) [facility] Vital Signs Date Time Vital Sign Value Performing Clinician Facility 04-21-2025 10:26-0400 Body mass index (BMI) [Ratio] 34.44 kg/m2 Elizabeth Pereira MD Work Phone: [facility] 04-21-2025 10:26-0400 Body weight 91 kg Elizabeth Pereira MD Work Phone: [facility] 04-21-2025 10:26-0400 Heart rate 64 /min Elizabeth Pereira MD Work Phone: [facility] 04-21-2025 10:26-0400 SaO2% (BldA) [Mass fraction] 100 % Elizabeth Pereira MD Work Phone: [facility] 03-09-2025 09:35-0400 Diastolic blood pressure 91 mm[Hg] Jemima iWnn MD Work Phone: [facility] 03-09-2025 09:35-0400 Heart rate 57 /min Jemima Winn MD Work Phone: [facility] 03-09-2025 09:35-0400 Respiratory rate 13 /min Jemima Winn MD Work Phone: [facility] 03-09-2025 09:35-0400 SaO2% (BldA) [Mass fraction] 100 % Jemima Winn MD Work Phone: [facility] 03-09-2025 09:35-0400 Systolic blood pressure 127 mm[Hg] Jemima Winn MD Work Phone: [facility] 02-16-2025 09:49-0400 Body height 162.6 cm Phyllis Bernardo APRN.CUT OFF SAW GRADER Work Phone: [facility] 02-16-2025 09:49-0400 Body mass index (BMI) [Ratio] 33.99 kg/m2 Phyllis Bernardo APRN.CUT OFF [employer]W [employer]ADER Work Phone: [facility] 02-16-2025 09:49-0400 Body weight 89.81 kg Phyllis Bernardo APRN.CUT OFF [employer]W [employer]ADER Work Phone: [facility] 02-16-2025 09:49-0400 Diastolic blood pressure 78 mm[Hg] Phyllis Bernardo APRN.CUT OFF [employer]W [employer]ADER Work Phone: [facility] 02-16-2025 09:49-0400 Heart rate 68 /min Phyllis Bernardo APRN.CUT OFF [employer]W GRADER Work Phone: [facility] 02-16-2025 09:49-0400 Respiratory rate 18 /min Phyllis Bernardo APRN.CUT OFF SAW [employer]ADER Work Phone: [facility] 02-16-2025 09:49-0400 SaO2% (BldA) [Mass fraction] 98 % Phyllis Bernardo APRN.CUT OFF [employer]W [employer]ADER Work Phone: [facility] 02-16-2025 09:49-0400 Systolic blood pressure 128 mm[Hg] Phyllis Bernardo APRN.CUT OFF [employer]W [employer]ADER Work Phone: [facility] 01-15-2025 13:24-0400 Body mass index (BMI) [Ratio] 33.68 kg/m2 Elizabeth Pereira MD Work Phone: [facility] 01-15-2025 13:24-0400 Body weight 89 kg Elizabeth Pereira MD Work Phone: [facility] 01-15-2025 13:24-0400 Heart rate 75 /min Elizabeth Pereira MD Work Phone: [facility] 01-15-2025 13:24-0400 SaO2% (BldA) [Mass fraction] 100 % Elizabeth Pereira MD Work Phone: [facility] 01-05-2025 09:29-0500 Body height 162.6 cm Isabel Davenport MD Work Phone: [facility] 01-05-2025 09:29-0500 Body mass index (BMI) [Ratio] 34.06 kg/m2 Isabel Davenport MD Work Phone: [facility] 01-05-2025 09:29-0500 Body weight 90 kg Isabel Davenport MD Work Phone: [facility] 01-05-2025 09:29-0500 Diastolic blood pressure 80 mm[Hg] Isabel Davenport MD Work Phone: [facility] 01-05-2025 09:29-0500 Heart rate 70 /min Isabel Davenport MD Work Phone: [facility] 01-05-2025 09:29-0500 SaO2% (BldA) [Mass fraction] 97 % Isabel Davenport MD Work Phone: [facility] 01-05-2025 09:29-0500 Systolic blood pressure 132 mm[Hg] Isabel Davenport MD Work Phone: [facility] 11-11-2024 14:45-0500 Body mass index (BMI) [Ratio] 33.76 kg/m2 Krislyn Aberegg PA Work Phone: [facility] 11-11-2024 14:45-0500 Body temperature 97.81 [degF] Krislyn Aberegg PA Work Phone: [facility] 11-11-2024 14:45-0500 Body weight 89.2 kg Krislyn Aberegg PA Work Phone: [facility] 11-11-2024 14:45-0500 Diastolic blood pressure 82 mm[Hg] Krislyn Aberegg PA Work Phone: [facility] 11-11-2024 14:45-0500 Heart rate 87 /min Krislyn Aberegg PA Work Phone: [facility] 11-11-2024 14:45-0500 Respiratory rate 18 /min Krislyn Aberegg PA Work Phone: [facility] 11-11-2024 14:45-0500 SaO2% (BldA) [Mass fraction] 97 % Krislyn Aberegg PA Work Phone: [facility] 11-11-2024 14:45-0500 Systolic blood pressure 128 mm[Hg] Krislyn Aberegg PA Work Phone: [facility] 06-11-2024 14:12-0400 Body height 162.6 cm Merari Camarillo MD Work Phone: [facility] 06-11-2024 14:12-0400 Body mass index (BMI) [Ratio] 35.19 kg/m2 Merari Camarillo MD Work Phone: [facility] 06-11-2024 14:12-0400 Body weight 92.99 kg Merari Camarillo MD Work Phone: [facility] 06-11-2024 14:12-0400 Diastolic blood pressure 103 mm[Hg] Merari Camarillo MD Work Phone: [facility] Comment on above: hasnt taken medication yet today 06-11-2024 14:12-0400 Heart rate 72 /min Merari Camarillo MD Work Phone: [facility] 06-11-2024 14:12-0400 Respiratory rate 16 /min Merari Camarillo MD Work Phone: [facility] 06-11-2024 14:12-0400 SaO2% (BldA) [Mass fraction] 100 % Merari Camarillo MD Work Phone: [facility] 06-11-2024 14:12-0400 Systolic blood pressure 180 mm[Hg] Merari Camarillo MD Work Phone: [facility] Comment on above: hasnt taken medication yet today 01-08-2024 16:42-0500 Body height 162.6 cm Isabel Davenport MD Work Phone: [facility] 01-08-2024 16:42-0500 Body weight 94 kg Isabel Davenport MD Work Phone: [facility] 01-08-2024 16:42-0500 Diastolic blood pressure 104 mm[Hg] Isabel Davenport MD Work Phone: [facility] 01-08-2024 16:42-0500 Heart rate 79 /min Isabel Davenport MD Work Phone: [facility] 01-08-2024 16:42-0500 SaO2% (BldA) [Mass fraction] 98 % Isabel Davenport MD Work Phone: [facility] 01-08-2024 16:42-0500 Systolic blood pressure 164 mm[Hg] Isabel Davenport MD Work Phone: [facility] 12-31-2023 16:19-0500 Body height 162.6 cm Isabel Davenport MD Work Phone: [facility] 01-29-2023 14:25-0400 Body height 162.6 cm Brianda Decker PA-C Work Phone: [facility] 01-29-2023 14:25-0400 Body weight 95.25 kg Brianda Decker PA-C Work Phone: [facility] 12-25-2022 08:41-0500 Body height 162.6 cm Merari Camarillo MD Work Phone: [facility] 12-25-2022 08:41-0500 Body weight 95.25 kg Merari Camarillo MD Work Phone: [facility] 12-25-2022 08:41-0500 Diastolic blood pressure 100 mm[Hg] Merari Camarillo MD Work Phone: [facility] 12-25-2022 08:41-0500 Heart rate 72 /min Merari Camarillo MD Work Phone: [facility] 12-25-2022 08:41-0500 Respiratory rate 18 /min Merari Camarillo MD Work Phone: [facility] 12-25-2022 08:41-0500 SaO2% (BldA) [Mass fraction] 98 % Merari Camarillo MD Work Phone: [facility] 12-25-2022 08:41-0500 Systolic blood pressure 146 mm[Hg] Merari Camarillo MD Work Phone: [facility] 11-20-2022 11:27-0500 Body height 166 cm Isabel Davenport MD Work Phone: [facility] 11-20-2022 11:27-0500 Body weight 94.35 kg Isabel Davenport MD Work Phone: [facility] 11-20-2022 11:27-0500 Diastolic blood pressure 80 mm[Hg] Isabel Davenport MD Work Phone: [facility] 11-20-2022 11:27-0500 Heart rate 78 /min Isabel Davenport MD Work Phone: [facility] 11-20-2022 11:27-0500 Systolic blood pressure 150 mm[Hg] Isabel Davenport MD Work Phone: [facility] 10-22-2022 22:41-0500 Diastolic blood pressure 87 mm[Hg] [facility] Work Phone: 10-22-2022 22:41-0500 Heart rate 65 /min [facility] Work Phone: 10-22-2022 22:41-0500 Respiratory rate 16 /min [facility] Work Phone: 10-22-2022 22:41-0500 SaO2% (BldA) [Mass fraction] 100 % [facility] Work Phone: 10-22-2022 22:41-0500 Systolic blood pressure 152 mm[Hg] [facility] Work Phone: 10-22-2022 20:17-0500 Body height 162.56 cm [facility] Work Phone: 10-22-2022 20:17-0500 Body mass index (BMI) [Ratio] 35.1 kg/m2 [facility] Work Phone: 10-22-2022 20:17-0500 Body temperature 96 [degF] [facility] Work Phone: 10-22-2022 20:17-0500 Body weight 92.85 kg [facility] Work Phone: 09-05-2022 18:17-0400 Body temperature 98.4 [degF] Jaspreet Arianne GUEST RELATIONS MANAGER.C[employer] OFF [employer]W [employer]AD[employer] Work Phone: [facility] 09-05-2022 18:17-0400 Body weight 94.35 kg Jaspreet Acuña GUEST RELATIONS MANAGER.CUT OFF [employer]W GRADER Work Phone: [facility] 09-05-2022 18:17-0400 Diastolic blood pressure 80 mm[Hg] Jaspreet Acuña GUEST RELATIONS MANAGER.CUT OFF SAW GRADER Work Phone: [facility] 09-05-2022 18:17-0400 Heart rate 98 /min Jaspreet Pendmillicent GUEST RELATIONS MANAGER.CUT OFF SAW GRADER Work Phone: [facility] 09-05-2022 18:17-0400 Respiratory rate 16 /min Jaspreet Acuña GUEST RELATIONS MANAGER.CUT OFF SAW GRADER Work Phone: [facility] 09-05-2022 18:17-0400 SaO2% (BldA) [Mass fraction] 98 % Jaspreet Acuña GUEST RELATIONS MANAGER.CUT OFF SAW GRADER Work Phone: [facility] 09-05-2022 18:17-0400 Systolic blood pressure 124 mm[Hg] Jaspreet Nogueiralegenevieve GUEST RELATIONS MANAGER.CUT OFF SAW GRADER Work Phone: [facility] 07-21-2022 10:31-0400 Body height 162.6 cm Parish Koch MD Work Phone: [facility] 07-21-2022 10:31-0400 Body weight 93.89 kg Parish Koch MD Work Phone: [facility] 07-21-2022 10:31-0400 Diastolic blood pressure 89 mm[Hg] Parish Koch MD Work Phone: [facility] 07-21-2022 10:31-0400 Heart rate 74 /min Parish Koch MD Work Phone: [facility] 07-21-2022 10:31-0400 SaO2% (BldA) [Mass fraction] 99 % Parish Koch MD Work Phone: [facility] 07-21-2022 10:31-0400 Systolic blood pressure 134 mm[Hg] Parish Koch MD Work Phone: [facility] 06-14-2022 10:43-0400 Body height 162.6 cm Merari Camarillo MD Work Phone: [facility] 06-14-2022 10:43-0400 Body weight 93.89 kg Merari Camarillo MD Work Phone: [facility] 06-14-2022 10:43-0400 Diastolic blood pressure 84 mm[Hg] Merari Camarillo MD Work Phone: [facility] 06-14-2022 10:43-0400 Heart rate 73 /min Merari Camarillo MD Work Phone: [facility] 06-14-2022 10:43-0400 Respiratory rate 18 /min Merari Camarillo MD Work Phone: [facility] 06-14-2022 10:43-0400 SaO2% (BldA) [Mass fraction] 97 % Merari Camarillo MD Work Phone: [facility] 06-14-2022 10:43-0400 Systolic blood pressure 134 mm[Hg] Merari Camarillo MD Work Phone: [facility] 03-14-2022 07:59-0400 Body height 162.6 cm Jennie Sosa GUEST RELATIONS MANAGER.CUT OFF SAW GRADER Work Phone: [facility] 03-14-2022 07:59-0400 Body weight 93.89 kg Jennie Sosa GUEST RELATIONS MANAGER.CUT OFF SAW GRADER Work Phone: [facility] 03-14-2022 07:59-0400 Diastolic blood pressure 88 mm[Hg] Jennie Sosa GUEST RELATIONS MANAGER.CUT OFF SAW GRADER Work Phone: [facility] 03-14-2022 07:59-0400 Heart rate 77 /min Jennie Sosa GUEST RELATIONS MANAGER.CUT OFF SAW GRADER Work Phone: [facility] 03-14-2022 07:59-0400 Respiratory rate 18 /min Jennie Sosa GUEST RELATIONS MANAGER.CUT OFF SAW GRADER Work Phone: [facility] 03-14-2022 07:59-0400 SaO2% (BldA) [Mass fraction] 98 % Jennie Sosa GUEST RELATIONS MANAGER.CUT OFF SAW GRADER Work Phone: [facility] 03-14-2022 07:59-0400 Systolic blood pressure 132 mm[Hg] Jennie Sosa GUEST RELATIONS MANAGER.CUT OFF SAW GRADER Work Phone: [facility] 02-18-2022 13:45-0400 Body temperature 97.2 [degF] Danette Lopez GUEST RELATIONS MANAGER.CUT OFF SAW GRADER Work Phone: [facility] 02-18-2022 13:45-0400 Body weight 97.61 kg Danette Lopez GUEST RELATIONS MANAGER.CUT OFF SAW GRADER Work Phone: [facility] 02-18-2022 13:45-0400 Diastolic blood pressure 74 mm[Hg] Danette Lopez GUEST RELATIONS MANAGER.CUT OFF SAW GRADER Work Phone: [facility] 02-18-2022 13:45-0400 Heart rate 70 /min Danette Lopez GUEST RELATIONS MANAGER.CUT OFF SAW GRADER Work Phone: [facility] 02-18-2022 13:45-0400 Respiratory rate 18 /min Danette Lopez GUEST RELATIONS MANAGER.CUT OFF SAW GRADER Work Phone: [facility] 02-18-2022 13:45-0400 SaO2% (BldA) [Mass fraction] 97 % Danette Lopez GUEST RELATIONS MANAGER.CUT OFF SAW GRADER Work Phone: [facility] 02-18-2022 13:45-0400 Systolic blood pressure 130 mm[Hg] Danette Lopez APRN.CUT OFF SAW GRADER Work Phone: [facility] Encounters Encounter Date Encounter Type Care Provider Facility Start: 04-24-2025 ambulatory [facility] Fa cility:[facility] Start: 04-21-2025 End: 04-21-2025 Telephone encounter Isabel Davenport MD Work Phone: [facility] Comment on above: Received Outside Med ical Records ([facility] EKG) Start: 04-21-2025 End: 04-21-2025 Office outpatient visit 25 minutes Elizabeth Pereira MD Work Phone: Allergy Comment on above: Chronic idiopathic u rticaria (Primary Dx); Angioedema, subsequent encounter; Cracked lips; Adverse reaction to food, subsequent encounter Start: 04-21-2025 End: 04-21-2025 ambulatory ELIZABETH PEREIRA Facility:[facility] Start: 04-20-2025 Encounter for other preprocedural examination [facility] Start: 04-20-2025 End: 04-20-[address] Dandre Melissa MD -Pulmonary Services/Neurology Work Phone: Start: 04-20-2025 End: 04-20-2025 ambulatory [facility] Facility:[facility] Start: 04-10-2025 End: 04-10-2025 Telephone encounter Phyllis Bernardo APRN.CUT OFF SAW GRADER Work Phone: [facility] Comment on above: Cardiac Clearance Start: 04-09-2025 End: 04-09-2025 Telephone encounter Isabel Davenport MD Work Phone: [facility] Comment on above: Received Outside Med ical Records ([facility] imaging ) Start: 04-08-2025 End: 04-08-[address] Jaspreet Davenport MD Work Phone: [facility] Work Phone: Start: 04-08-2025 End: 04-08-[address] Dandre Melissa MD -Cat Scan [facility] Work Phone: Start: 04-08-2025 End: 04-08-2025 ambulatory Dandre Melissa Facility:[facility] Start: 03-13-2025 End: 03-13-2025 Telephone encounter Isabel Davenport MD Work Phone: [facility] Start: 03-09-2025 ambulatory JEMIMA WINN Facility: [facility] Start: 03-09-2025 End: 03-09-2025 Subsequent hospital visit by physician Jemima Winn MD Work Phone: Ambulatory Surgery Comment on above: Positive fecal occul t blood test [R19.5] Start: 03-03-2025 End: 03-03-2025 ambulatory Isabel Davenport MD Work Phone: [facility] Comment on above: Fax number Start: 03-03-2025 End: 03-04-2025 Telephone encounter Keaton Wade MD Work Phone: Ambulatory Surgery Comment on above: Appointment Patient Update Start: 02-27-2025 ambulatory ISABEL Woodi ty:[facility] Start: 02-23-2025 End: 02-23-2025 Telephone encounter Belén Aclala MD Work Phone: [facility] Cardiology [place] Comment on above: [employer] Start: 02-16-2025 End: 02-23-2025 Telephone encounter Phyllis Bernardo APRN.CUT OFF SAW GRADER Work Phone: [facility] Comment on above: Appointment Start: 02-16-2025 End: 02-16-2025 Patient encounter procedure Phyllis Bernardo APRN.CUT OFF SAW GRADER Work Phone: [phone] [place] [address] Comment on above: PFO (patent foramen ovale) (HCC) (Primary Dx); Essential (primary) hypertension; Mixed hyperlipidemia Start: 02-16-2025 End: 02-16-2025 ambulatory PHYLLIS BERNARDO Facility:[facility] Start: 02-03-2025 End: 02-03-2025 Telephone encounter Isabel Davenport MD Work Phone: [facility] Comment on above: Received Outside Apieron Records ([employer] [facility] Certification of Health Care provider for employees serious health condition 02/03/2025) Start: 01-29-2025 End: 01-29-2025 Refill Isabel Davenport MD Work Phone: [facility] Comment on above: Refill Request Start: 01-15-2025 End: 01-15-2025 ambulatory ELIZABETH PEREIRA Facility:[facility] Start: 01-15-2025 End: 01-15-2025 Office outpatient new 45 minutes Elizabeth Pereira MD Work Phone: Allergy Comment on above: Chronic idiopathic u rticaria (Primary Dx); Angioedema, initial encounter; Adverse food reaction, initial encounter Start: 01-05-2025 End: 03-07-2025 Follow-up encounter Isabel Davenport MD Work Phone: [facility] Start: 01-05-2025 End: 01-05-2025 ambulatory ISABEL DAVENPORT Facility:[facility] Start: 01-05-2025 End: 01-05-2025 Office outpatient visit 25 minutes Isabel Davenport MD Work Phone: [facility] Comment on above: Type 2 diabetes tavo itus without complication, without long- term current use of insulin (HCC) (Primary Dx); Mixed hyperlipidemia; Essential hypertension; 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, unspecified blood vessel laterality (HCC); Acquired hypothyroidism; Screening mammogram for breast cancer; Bereavement reaction; Oral lesion; Encounter for screening fecal occult blood testing Start: 01-02-2025 End: 01-02-2025 ambulatory VADIM TEIXEIRA Facility:[facility] Start: 12-25-2024 End: 12-25-2024 Telephone encounter Isabel Davenport MD Work Phone: [facility] Comment on above: 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 (Dannie finch ) Start: 12-23-2024 End: 12-26-2024 ambulatory Isabel Davenport MD Work Phone: Internal Medicine [place] [phone] Start: 12-17-2024 End: 12-19-2024 ambulatory Isabel Davenport MD Work Phone: [facility] Start: 11-12-2024 End: 11-12-2024 Telephone encounter Jorge Hobson MD Work Phone: [facility] Comment on above: Results (COVID+) Start: 11-11-2024 End: 11-11-2024 Subsequent hospital visit by physician Xr [facility] Melissa Work Phone: Radiology Comment on above: Acute cough [R05.1] Start: 11-11-2024 End: 11-11-2024 ambulatory ISABEL DAVENPORT Facility:[facility] Start: 11-11-2024 End: 11-11-2024 Patient encounter procedure Eneida GREENWOOD Work Phone: [facility] Comment on above: Acute cough (Primary Dx); URI, acute Start: 09-13-2024 End: 09-15-2024 Refill Isabel Davenport MD Work Phone: [facility] Comment on above: Refill Request Start: 07-04-2024 End: 07-04-2024 Refill Farnaz Flores APRN.CNP Work Phone: [facility] Comment on above: Refill Request Start: 06-11-2024 End: 06-11-2024 Patient encounter procedure Merari Camarillo MD Work Phone: [facility] Comment on above: History of CVA (cere brovascular accident) (Primary Dx); Primary hypertension; Mixed hyperlipidemia Start: 06-11-2024 End: 06-11-2024 ambulatory MERARI CAMARILLO Facility:[facility] Start: 05-11-2024 Refill Isabel chan MD Work Phone: [facility] Comment on above: Refill Request Start: 04-16-2024 ambulatory Isabel chan MD Work Phone: [facility] Comment on above: lab Start: 04-16-2024 E-mail encounter tonya grijalva caregiver Isabel Davenport MD Work Phone: [facility] Start: 04-08-2024 End: 04-08-2024 Patient encounter procedure Fernando Muniz OD Work Phone: [facility] Comment on above: Low vision right eye category 1, low vision left eye category 1 (Primary Dx); Homonymous hemianopsia, left; Occipital stroke (HCC); Presbyopia Start: 03-28-2024 End: 03-28-2024 Patient encounter procedure Antonio Christina OD Work Phone: Ophthalmology Comment on above: Type 2 diabetes tavo itus without retinopathy (HCC) (Primary Dx); Homonymous hemianopsia, left Start: 02-29-2024 ambulatory Isabel chan MD Work Phone: [facility] Start: 02-29-2024 E-mail encounter tonya grijalva caregiver Isabel Davenport MD Work Phone: [facility] Start: 02-27-2024 ambulatory Isabel chan MD Work Phone: [facility] Comment on above: Wellness Screening F rom Start: 02-27-2024 Documentation procedure Mammog hamlet Coordinator [facility] Department Start: 02-27-2024 Letter encounter Mammography Coordinator [facility] Start: 02-26-2024 End: 02-26-2024 Subsequent hospital visit by physician Screen Mammo [facility] Mammogram Start: 01-08-2024 End: 01-08-2024 Patient encounter procedure Isabel Davenport MD Work Phone: [facility] Comment on above: Cerebrovascular acci dent (CVA) [...] Telephone encounter Merari lemos MD Work Phone: [facility] Cardiology [place] Comment on above: Results Start: 01-06-2024 ambulatory Hermelinda SALDANA SE [employer]UMENT AND ELECTRICAL TECHNICIAN Comment on above: Patient Question Start: 12-31-2023 End: 12-31-2023 Patient encounter procedure Isabel Davenport MD Work Phone: [facility] Comment on above: NO SHOW (Primary Dx) Start: 12-30-2023 Refill Isabel chan MD Work Phone: [facility] Comment on above: Refill Request Start: 04-10-2023 Refill Merari Israel [facility] [facility] Comment on above: Refill Request Start: 03-27-2023 Telephone encounter Isabel Davenport MD Work Phone: [facility] Comment on above: Received Outside [facility] Records ([facility] Emergency Department Summary 03/25/2023) Start: 03-06-2023 End: 03-06-2023 ambulatory Johny Flores PT Work Phone: [facility] Comment on above: Leg length discrepan cy (Primary Dx) Start: 02-19-2023 Orders Only Sheron Albert nn GUEST RELATIONS MANAGER.CUT OFF SAW GRADER Work Phone: Cardiology Comment on above: PFO (patent foramen ovale) (Primary Dx) Start: 02-15-2023 Refill Merari Israel Work Phone: [facility] Comment on above: Refill Request Start: 02-15-2023 End: 02-15-2023 ambulatory Johny Flores PT Work Phone: [facility] Comment on above: Leg length discrepan cy (Primary Dx) Start: 02-02-2023 ambulatory Isabel chan MD Work Phone: [facility] Comment on above: Prescription [employer] p Sticker Renewal Start: 01-30-2023 ambulatory Brianda Wyliebahman rodriguez PA-C Work Phone: Orthopaedics Comment on above: Forgot: Return to Wo rk Note Start: 01-29-2023 End: 01-29-2023 Orders Only Brianda Wyliemykel PA-C Work Phone: Orthopaedics Comment on above: Pain in right hip (P rimary Dx) Primary osteoarthrit is of right hip (Primary Dx); Sacroiliitis (HCC); Leg length discrepancy Start: 01-26-2023 End: 01-26-2023 Follow-up encounter Rem [facility] Comment on above: Remote Pacemaker Fol low Up Start: 01-26-2023 End: 01-26-2023 Patient encounter procedure Rem Device [facility] Start: 01-05-2023 Documentation procedure Mammog hamlet Coordinator [facility] Start: 01-05-2023 Letter encounter Mammography Coordinator [facility] Department Start: 01-01-2023 Admission to [facility] Fifi Calderón MD Work Phone: Cardiology Comment on above: After Surgery/Return to work Start: 01-01-2023 ambulatory Fifi preciado MD Work Phone: [facility] Start: 01-01-2023 Telephone encounter Merari lemos MD Work Phone: Preventive Cardiology Comment on above: Patient Question (As ked why appointment Dr. Duffy) Start: 12-29-2022 Admission to [facility] Fifi Calderón MD Work Phone: Cardiology Comment on above: After Surgery/Return to work Start: 12-29-2022 ambulatory Fifi preciado MD Work Phone: [facility] Start: 12-27-2022 End: 12-27-2022 Follow-up encounter Rem [facility] Comment on above: Remote ILR Follow Up Start: 12-27-2022 End: 12-27-2022 Patient encounter procedure Rem Device [facility] Start: 12-26-2022 Admission to [facility] Fifi Calderón MD Work Phone: Cardiology Comment on above: After Surgery/Return to work Start: 12-26-2022 ambulatory Fifi preciado MD Work Phone: [facility] Start: 12-25-2022 End: 12-25-2022 Patient encounter procedure Merari Camarillo MD Work Phone: [facility] Comment on above: Primary hypertension (Primary Dx); Mixed hyperlipidemia; Recurrent cerebrovascular accidents (CVAs) (HCC) Start: 12-19-2022 Admission to [facility] Fifi Calderón MD Work Phone: Cardiology Comment on above: Reply: After Surgery Start: 12-19-2022 ambulatory Fifi preciado MD Work Phone: [facility] Start: 12-15-2022 Admission to [facility] Fifi Calderón MD Work Phone: Cardiology Comment on above: After Surgery/Return to work Start: 12-15-2022 ambulatory Fifi preciado MD Work Phone: [facility] Start: 12-10-2022 Telephone encounter Fifi emanuel MD Work Phone: Cardiology Comment on above: Education Of Patient /family Start: 11-27-2022 End: 11-27-2022 Follow-up encounter Rem [facility] Comment on above: Remote ILR Follow Up Start: 11-27-2022 End: 11-27-2022 Patient encounter procedure Rem Device [facility] Start: 11-20-2022 End: 11-20-2022 Patient encounter procedure Isabel Davenport MD Work Phone: Family Practice Comment on above: Essential hypertensi on (Primary Dx); Type 2 diabetes mellitus without complication, without long-term current use of insulin (HCC); PFO (patent foramen ovale); Acquired hypothyroidism; History of stroke; Occipital stroke (HCC); Visual impairment; Leg length discrepancy; Encounter for immunization; Encounter for screening fecal occult blood testing; Screening for HIV (human immunodeficiency virus) Start: 11-19-2022 Orders Only Fifi preciado MD Work Phone: Cardiology Comment on above: PFO (patent foramen ovale) (Primary Dx); Primary hypertension; Hypertension, unspecified type Start: 11-15-2022 Refill Merari Israel Work Phone: [facility] Comment on above: Refill Request Start: 11-10-2022 Refill Vadim THIBODEAUXCUT OFF SAW GRADER Work Phone: [facility] Comment on above: Refill Request Start: 10-28-2022 End: 11-01-2022 Follow-up encounter Rem [facility] GENERAL DEVICE [facility] Comment on above: Remote ILR Follow Up Start: 10-28-2022 End: 11-01-2022 Patient encounter procedure Rem Device [facility] Start: 10-23-2022 Telephone encounter Isabel Davenport MD Work Phone: [facility] Comment on above: Received Outside [facility] Records ([facility] Start: 10-22-2022 End: 10-22-2022 Emergency department patient visit [facility] Start: 10-22-2022 Refill Zenobia malik PA-C Work Phone: [facility] Comment on above: Refill Request Start: 09-28-2022 End: 09-28-2022 Follow-up encounter Rem [facility] Comment on above: Remote Pacemaker Fol low Up Start: 09-28-2022 End: 09-28-2022 Patient encounter procedure Rem Device [facility] Start: 09-09-2022 End: 09-10-2022 ambulatory Covid Vaccine [place] [facility] Comment on above: Arrived Start: 09-05-2022 End: 09-05-2022 Patient encounter procedure Jaspreet Acuña APRN.CUT OFF SAW GRADER Work Phone: [facility] Comment on above: Suspected COVID-19 v irus infection (Primary Dx); Acute maxillary sinusitis, recurrence not specified Start: 08-29-2022 End: 08-29-2022 Follow-up encounter Rem [facility] GENERAL DEVICE [facility] Comment on above: Remote ILR Follow Up Start: 08-29-2022 End: 08-29-2022 Patient encounter procedure Rem Device [facility] Start: 08-12-2022 End: 08-12-2022 ambulatory Covid Vaccine [place] COVID Vaccine Comment on above: Arrived Start: 08-12-2022 End: 08-13-2022 ambulatory ISABEL DAVENPORT Facility:[facility] Start: 08-02-2022 Orders Only Fifi preciado MD Work Phone: Cardiology Comment on above: Primary hypertension (Primary Dx) Start: 07-21-2022 End: 07-21-2022 Patient encounter procedure Parish Koch MD Work Phone: [facility] [place] Comment on above: PFO (patent foramen ovale) (Primary Dx); Primary hypertension; Mixed hyperlipidemia; 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, unspecified blood vessel laterality (HCC) Start: 07-14-2022 Telephone encounter Isabel Davenport MD Work Phone: [facility] Comment on above: Orders Start: 07-12-2022 End: 07-12-2022 Patient encounter procedure Antonio Christina OD Work Phone: Ophthalmology Comment on above: Homonymous hemianops ia, left (Primary Dx); Occipital stroke (HCC); Type 2 diabetes mellitus without retinopathy (HCC); Presbyopia Start: 06-30-2022 End: 06-30-2022 Follow-up encounter Rem [facility] GENERAL DEVICE [facility] Comment on above: Remote ILR Follow Up Start: 06-30-2022 End: 06-30-2022 Patient encounter procedure Rem Device [facility] Start: 06-14-2022 End: 06-14-2022 Patient encounter procedure Merari Camarillo MD Work Phone: [facility] [place] Comment on above: History of stroke (P rimary Dx); Essential hypertension; PFO (patent foramen ovale); Mixed hyperlipidemia Start: 06-13-2022 ambulatory Isabel chan MD Work Phone: [facility] Start: 05-03-2022 ambulatory Isabel chan MD Work Phone: [facility] Start: 04-01-2022 End: 04-01-2022 Follow-up encounter [facility] GENERAL DEVICE [facility] Comment on above: Remote ILR Follow Up Start: 04-01-2022 End: 04-01-2022 Patient encounter procedure Rem Device [facility] Start: 03-15-2022 Telephone encounter Jennie mckeon GUEST RELATIONS MANAGER.CUT OFF SAW GRADER Work Phone: [facility] [place] Comment on above: Cardiac Clearance Start: 03-14-2022 End: 03-14-2022 Patient encounter procedure Jennie Sosa APRN.CUT OFF SAW GRADER Work Phone: [facility] Comment on above: Pre-operative cardio vascular examination (Primary Dx); Essential hypertension; Mixed hyperlipidemia; PFO (patent foramen ovale); Cerebrovascular accident (CVA), unspecified mechanism (HCC) Start: 03-14-2022 End: 03-14-2022 Patient encounter status Jennie Sosa APRN.CUT OFF SAW GRADER Work Phone: [facility] Start: 03-02-2022 End: 03-02-2022 Follow-up encounter [facility] DEVICE [facility] Comment on above: Remote Pacemaker Fol low Up Start: 03-02-2022 End: 03-02-2022 Patient encounter procedure Rem Device [facility] Start: 03-01-2022 Telephone encounter Merari lemos MD Work Phone: [facility] [place] Comment on above: Cardiac Clearance Start: 02-18-2022 End: 02-18-2022 Patient encounter procedure Danette Lopez GUEST RELATIONS MANAGER.CUT OFF SAW GRADER Work Phone: [facility] Comment on above: Dermatitis (Primary Dx); Chronic right shoulder pain Start: 03-31-2021 Patient encounter status Paty Lopez GUEST RELATIONS MANAGER.CUT OFF SAW GRADER Work Phone: [facility] Work Phone: Start: 05-14-2019 Patient encounter procedure MERARI CAMARILLO Facility:[facility] Start: 05-05-2019 Patient encounter procedure FERNANDO ROSAS Facility:[facility] Start: 03-03-2019 End: 03-03-2019 Patient encounter procedure OCRTEZ FORRESTER Facility:[facility] Start: 02-05-2019 End: 02-05-2019 Patient encounter procedure MERARI CAMARILLO Facility:[facility] Start: 01-19-2019 Evaluation and management of inpatient UNKNOWN PROVIDER [facility] Start: 01-16-2019 End: 01-16-2019 Emergency department patient visit UNKNOWN PROVIDER [facility] Procedures Date Procedure Procedure Detail Performing Clinician Start: 04-08-[address] Jaspreet Israel Work Phone: Start: 03-09-2025 Colonoscopy flx dx w/collj spec when pfrmd Vadim Teixeira GUEST RELATIONS MANAGER.CUT OFF SAW GRADER Work Phone: Start: 03-09-2025 Colonoscopy Jemima Winn MD Work Phone: Start: 11-11-2024 Radiologic exam chest 2 views Eneida GREENWOOD Work Phone: Start: 01-08-2024 Hemoglobin A1c/Hemoglobin.total in [...] 09-05-2022 COVID WITH FLUA+B, ROUTINE Jaspreet Acuña GUEST RELATIONS MANAGER.CUT OFF SAW GRADER Work Phone: Start: 08-12-2022 [employer]ER[employer] COVID-19 PRIMARY SERIES VACCINE, AGE 12+ YR Sj Mccarthy MD Work Phone: Start: 07-12-2022 Visual field xm uni/bi w/interp extended exam Antonio Christina OD Work Phone: Start: 03-19-2018 Mammography Danette Jessica HUBER TAX REPRESENTATIVE Work Phone: H/O: surgery History of loop recorder Belén Alcala MD Work Phone: Plan of Treatment Date Care Activity Detail Author Start: 03-09-2026 Screening for malignant neoplasm of colon [facility] Start: 02-27-2026 Screening for malignant neoplasm of breast Mammogram Screening [facility] Start: 02-16-2026 BP Controlled (<130/80) BP Controlled (<130/80) [facility] in Start: 02-10-2026 Screening for malignant neoplasm of colon [facility] Start: 01-05-2026 Annual PCP Team Chronic Disease Visit Annual PCP Team Chronic Disease Visit [facility] Start: 01-05-2026 Diabetic foot examination Diabetic Foot Exam [facility] Start: 01-02-2026 Hepatitis B surface antibody level LDL Cholesterol [facility] Start: 09-28-2025 End: 09-28-2025 Patient encounter procedure 09/28/2025 9:00 AM EST Office Visit [facility] [address] [place] [address] Merari Camarillo MD [address] [facility] [address] [place], [place] [id number] 6 month follow up [facility] Comment on above: 6 month follow up Start: 08-03-2025 End: 08-03-2025 Patient encounter procedure 08/03/2025 3:00 PM EDT Office Visit Dermatology [facility] [address] [place] [address] [place] [address] [place] [address] Cracked lips [K13.0] Dermatology [facility] Comment on above: Cracked lips [K13.0] Start: 07-06-2025 Influenza vaccination Influenza Vaccine (Season Ended) [facility] Start: 05-25-2025 End: 05-25-2025 Patient encounter procedure 05/25/2025 8:15 AM EDT Office Visit [facility] [address] [facility] [address] [place] [address] TutenAntonio, OD [address] [place] [address] Annual dilated eye exam Ophthalmology Comment on above: Annual dilated eye exam Start: 04-21-2025 End: 07-21-2025 ALGN RED DYE IGE ALGN RED DYE IGE Lab Routine Cracked lips Expected: 04/21/2025, Expires: 07/21/2025 [facility] Work Phone: Comment on above: Expected: 04/21/2025, Expires: Start: 04-21-2025 End: 04-21-2025 Patient encounter procedure 04/21/2025 10:30 AM EDT Office Visit Allergy [address] [place] [address] [place] [address] [place] [address] HIVES FOLLOW UP Allergy Comment on above: HIVES FOLLOW UP Start: 04-14-2025 Hepatitis B screening Urine Albumin:Creatinine Ratio [facility] Start: 04-09-2025 Subsequent hospital visit by physician 04/09/2025 Hospital Encounter [facility] [address] [place] [address] Belén Alcala MD [address] [place] [address] History of loop recorder [Z98.890] [facility] Comment on above: History of loop recorder [Z98.890] Start: 04-09-2025 End: 04-09-2025 Removal subcutaneous cardiac rhythm monitor REMOVAL SUBCUTANEOUS CARDIAC RHYTHM MONITOR History of loop recorder 04/09/2025 11:45 AM EDT [facility] Start: 04-01-2025 Hemoglobin A1c measurement HbA1C [facility] Start: 03-28-2025 Glaucoma screening Dilated Retinal Exam [facility] Start: 03-09-2025 End: 03-09-2025 Patient encounter procedure 03/09/2025 12:30 PM EDT Appointment Ambulatory Surgery [address] [place] [address] Positive fecal occult blood test [R19.5] Ambulatory Surgery Comment on above: Positive fecal occult blood test [R19.5] Start: 03-09-2025 End: 03-09-2025 Patient encounter procedure Ambulatory Surgery Comment on above: colonoscopy Positive fecal occul t blood test Start: 03-03-2025 End: 03-03-2025 Anesthesia consultation 03/03/2025 11:59 PM EDT Anesthesia Event Ambulatory Surgery [address] [place] [address] Miranda Hernandez APRN.MRI SUPERVISOR [address] [place] [address] Ambulatory Surgery Start: 02-27-2025 End: 02-27-2025 Patient encounter procedure 02/27/2025 7:50 AM EDT Appointment Mammogram [address] [place] [place], [place] [address] Mammogram Start: 02-26-2025 End: 02-04-2026 MG Breast Screening THAD SCREENING Radiology Routine Screening mammogram for breast cancer Expected: 02/26/2025, Expires: 02/04/2026 [facility] Work Phone: Comment on above: Expected: 02/26/2025, Expires: Start: 02-25-2025 Screening for malignant neoplasm of breast Mammogram Screening [facility] Start: 02-16-2025 End: 02-16-2025 Patient encounter procedure 02/16/2025 10:00 AM EDT Office Visit [facility] [place] [facility] [address] [place] [address] Phyllis Bernardo APRN.[facility] [address] [facility] [place] [address] overdue 2 month follow up jt [facility] Comment on above: overdue 2 month follow up jt Start: 01-21-2025 End: 01-21-2025 Patient encounter procedure 01/21/2025 11:00 AM EDT Office Visit [facility] [address] [place], [place] [id number] Merari Camarillo MD [address] [place], [place] [id number] overdue 2 month follow up [facility] Comment on above: overdue 2 month follow up Start: 01-07-2025 Annual PCP Team Chronic Disease Visit Annual PCP Team Chronic Disease Visit [facility] Start: 01-07-2025 Diabetic foot examination Diabetic Foot Exam [facility] Start: 01-06-2025 Hepatitis B surface antibody level LDL Cholesterol [facility] Start: 01-05-2025 End: 01-05-2025 Patient encounter procedure 01/05/2025 9:20 AM EST Office Visit Family Practice [address] [place] [address] Isabel Davenport MD [address] [place] [address] f/u Family Practice Comment on above: f/u Start: 01-02-2025 End: 01-02-2025 Results Only 01/02/2025 7:30 AM EST Results Only [facility] [address] [place] [address] 2 orders [facility] Comment on above: 2 orders Start: 12-31-2024 Annual PCP Team Chronic Disease Visit Annual PCP Team Chronic Disease Visit [facility] Start: 12-23-2024 End: 03-24-2025 CBC panel - Blood by Automated count COMPLETE BLOOD COUNT Lab Routine Diabetes mellitus (HCC) Expected: 12/23/2024, Expires: 03/24/2025 [facility] Work Phone: Comment on above: Expected: 12/23/2024, Expires: Start: 12-17-2024 End: 03-18-2025 Hemoglobin A1c in Blood HEMOGLOBIN A1C Lab Routine Type 2 diabetes mellitus without complication, without long-term current use of insulin (HCC) Expected: 12/17/2024, Expires: 03/18/2025 [facility] Comment on above: Expected: 12/17/2024, Expires: Start: 12-17-2024 End: 03-18-2025 Lipid 1996 panel - Serum or Plasma LIPID PANEL BASIC Lab Routine Mixed hyperlipidemia Expected: 12/17/2024, Expires: 03/18/2025 [facility] Work Phone: Comment on above: Expected: 12/17/2024, Expires: Start: 09-22-2024 End: 09-22-2024 Patient encounter procedure 09/22/2024 2:30 PM EST Office Visit [facility] General Cardiology [place] [address] [facility] [address] [place], [place] [address] Jackie Smith APRN.CUT OFF SAW GRADER [address] [place] [address] 2 month follow up [facility] [place] Comment on above: 2 month follow up Start: 07-15-2024 Hemoglobin A1c measurement HbA1C [facility] Start: 07-09-2024 End: 09-30-2025 [facility] BINOCULAR VISUAL FIELD [facility] BINOCULAR VISUAL FIELD [facility] Imaging Routine Low vision right eye category 1, low vision left eye category 1 Homonymous hemianopsia, left Expected: 07/09/2024, Expires: 09/30/2025 [facility] Work Phone: Comment on above: Expected: 07/09/2024, Expires: Start: 07-06-2024 Covid-19 Vaccine ( season) Covid-19 Vaccine () [facility] Start: 07-06-2024 [facility]enza [facility] Start: 06-11-2024 End: 06-11-2024 Patient encounter procedure [facility] [place] [facility] Comment on above: Overdue 6 month f/u Start: 04-14-2024 End: 04-14-2024 ambulatory 04/14/2024 7:00 AM EDT Results Only Melissa Taylor [facility] [address] [place] [address] Melissa Taylor [facility] Start: 04-09-2024 End: 07-09-2024 ALBUMIN/CREAT RATIO RND UR ALBUMIN/CREAT RATIO RND UR Lab Routine Type 2 diabetes mellitus without complication, without long-term current use of insulin (HCC) Expected: 04/09/2024, Expires: 07/09/2024 [facility] Work Phone: Comment on above: Expected: 04/09/2024, Expires: Start: 04-09-2024 End: 07-09-2024 Comprehensive metabolic 2000 panel - Serum or Plasma COMP METABOLIC PANEL Lab Routine Type 2 diabetes mellitus without complication, without long-term current use of insulin (HCC) Essential hypertension Expected: 04/09/2024, Expires: 07/09/2024 [facility] Work Phone: Comment on above: Expected: 04/09/2024, Expires: 4 Start: 04-09-2024 End: 07-09-2024 Hemoglobin A1c in Blood HGB A1C Lab Routine Type 2 diabetes mellitus without complication, with no history of insulin use (HCC) Expected: 04/09/2024, Expires: 07/09/2024 [facility] Work Phone: Comment on above: Expected: 04/09/2024, Expires: 4 Start: 04-09-2024 Hemoglobin A1c measurement HbA1C [facility] Start: 04-09-2024 End: 07-09-2024 HIV 1+2 Ab [Presence] in Serum or Plasma by Immunoassay HIV 1 2 COMBO(AG/AB),WITH REFLEX TO DIFFERENTIATION Lab Routine Screening for HIV (human immunodeficiency virus) Expected: 04/09/2024, Expires: 07/09/2024 [facility] Work Phone: Comment on above: Expected: 04/09/2024, Expires: Start: 04-09-2024 End: 07-09-2024 Thyrotropin [Units/volume] in Serum or Plasma TSH BLD Lab Routine Acquired hypothyroidism Expected: 04/09/2024, Expires: 07/09/2024 [facility] Work Phone: Comment on above: Expected: 04/09/2024, Expires: Start: 03-28-2024 End: 03-28-2024 Patient encounter procedure 03/28/2024 10:00 AM EDT Office Visit [facility] [address] [place] [address] Antonio Christina OD [address] [facility] [address] [place], [place] [id number] Routine eye exam Ophthalmology Comment on above: Routine eye exam Start: 03-20-2024 End: 03-20-2024 ambulatory 03/20/2024 8:00 AM EDT [facility] [place] [address] [place] [address] Merari Camarillo MD [address] [facility] [address] [place] [address] Overdue 6 month f/u, NI 12/25/22 [facility] [place] Comment on above: Overdue 6 month f/u, NI 12/25/22 Start: 03-08-2024 Hzv zoster vacc recombinant adjuvanted im njx ZOSTER VACCINE, RECOMBINANT (SHINGRIX) Immunization/Injection Routine Encounter for immunization Expected: 03/08/2024 [facility] Work Phone: Comment on above: Expected: 03/08/2024 Start: 03-04-2024 Shingrix Vaccine (2 of 2) Shingrix Vaccine (2 of 2) [facility] Start: 01-06-2024 Mammography MAMMOGRAM [facility] Start: 01-06-2024 Screening for malignant neoplasm of breast Mammogram Screening [facility] Start: 11-20-2023 ANNUAL PCP TEAM CHRONIC DISEASE VISIT ANNUAL PCP TEAM CHRONIC DISEASE VISIT [facility] Start: 11-14-2023 Hepatitis B surface antibody level LDL CHOLESTEROL [facility] Start: 09-05-2023 BP CONTROLLED (<130/80) BP CONTROLLED (<130/80) [facility] Start: 07-12-2023 Glaucoma screening Dilated Retinal Exam [facility] Start: 07-12-2023 Hepatitis C antibody, confirmatory test DILATED RETINAL EXAM [facility] Start: 07-06-2023 Covid-19 Vaccine () Covid-19 Vaccine () [facility] Start: 07-06-2023 Influenza vaccination [facility] Start: 06-28-2023 3 comp foot exam completed DIABETIC FOOT EXAM [facility] Start: 06-28-2023 ANNUAL PCP TEAM CHRONIC DISEASE VISIT ANNUAL PCP TEAM CHRONIC DISEASE VISIT [facility] Start: 06-28-2023 BP CONTROLLED (<130/80) BP CONTROLLED (<130/80) [facility] Start: 06-28-2023 Diabetic foot examination Diabetic Foot Exam [facility] Start: 06-28-2023 Urine microalbumin profile DTAP,TDAP,TD (2 - Td or Tdap) [facility] Comment on above: Postponed from 04/28/2019 (Declined at t his time) Start: 06-26-2023 Hepatitis B screening URINE ALBUMIN:CREATININE RATIO [facility] Start: 05-05-2023 End: 07-05-2023 Basic metabolic 2000 panel - Serum or Plasma BASIC METABOLIC PNL Lab Routine Essential hypertension Expected: 05/05/2023, Expires: 07/05/2023 [facility] Work Phone: Comment on above: Expected: 05/05/2023, Expires: 3 Start: 05-05-2023 End: 07-05-2023 Hemoglobin A1c in Blood HGB A1C Lab Routine Type 2 diabetes mellitus without complication, without long-term current use of insulin (HCC) Expected: 05/05/2023, Expires: 07/05/2023 [facility] Work Phone: Comment on above: Expected: 05/05/2023, Expires: 3 Start: 02-19-2023 End: 04-21-2023 CBC W Auto Differential panel - Blood CBC + DIFF Lab Routine PFO (patent foramen ovale) Expected: 02/19/2023, Expires: 04/21/2023 [facility] Work Phone: Comment on above: Expected: 02/19/2023, Expires: 3 Start: 02-19-2023 End: 04-21-2023 Comprehensive metabolic 2000 panel - Serum or Plasma COMP METABOLIC PANEL Lab Routine PFO (patent foramen ovale) Expected: 02/19/2023, Expires: 04/21/2023 [facility] Work Phone: Comment on above: Expected: 02/19/2023, Expires: 3 Start: 02-19-2023 End: 04-21-2023 Lipid 1996 panel - Serum or Plasma LIPID PANEL BASIC Lab Routine PFO (patent foramen ovale) Expected: 02/19/2023, Expires: 04/21/2023 [facility] Work Phone: Comment on above: Expected: 02/19/2023, Expires: 3 Start: 02-19-2023 End: 04-21-2023 Natriuretic peptide.B prohormone N-Terminal [Mass/volume] in Serum or Plasma NT PRO BNP Lab Routine PFO (patent foramen ovale) Expected: 02/19/2023, Expires: 04/21/2023 [facility] Work Phone: Comment on above: Expected: 02/19/2023, Expires: 3 Start: 02-12-2023 Hemoglobin A1c measurement HbA1C [facility] Start: 02-12-2023 Hemoglobin A1c/Hemoglobin.total in Blood HBA1C [facility] Start: 11-19-2022 End: 01-19-2023 CBC panel - Blood by Automated count CBC Lab Routine PFO (patent foramen ovale) Primary hypertension Hypertension, unspecified type Expected: 11/19/2022, Expires: 01/19/2023 [facility] Work Phone: Comment on above: Expected: 11/19/2022, Expires: 3 Start: 11-19-2022 End: 01-19-2023 Comprehensive metabolic 2000 panel - Serum or Plasma COMP METABOLIC PANEL Lab Routine PFO (patent foramen ovale) Primary hypertension Hypertension, unspecified type Expected: 11/19/2022, Expires: 01/19/2023 [facility] Work Phone: Comment on above: Expected: 11/19/2022, Expires: 3 Start: 11-19-2022 End: 01-19-2023 Natriuretic peptide.B prohormone N-Terminal [Mass/volume] in Serum or Plasma NT PRO BNP Lab Routine PFO (patent foramen ovale) Primary hypertension Hypertension, unspecified type Expected: 11/19/2022, Expires: 01/19/2023 [facility] Work Phone: Comment on above: Expected: 11/19/2022, Expires: 3 Start: 11-04-2022 COVID-19 VACCINE (3 - Booster for Pfizer series) COVID-19 VACCINE (3 - Booster for Pfizer series) [facility] Start: 09-26-2022 Hemoglobin A1c/Hemoglobin.total in Blood HBA1C [facility] Start: 09-02-2022 COVID-19 VACCINE (2 - Pfizer series) COVID-19 VACCINE (2 - Pfizer series) [facility] Start: 09-02-2022 PFIZER SARS-COV-2 VACCINE 2D DOSE APPT PFIZER SARS-COV-2 VACCINE 2D DOSE APPT Procedures Routine Expected: 09/02/2022 [facility] Work Phone: Comment on above: Expected: 09/02/2022 Start: 08-05-2022 PNEUMOCOCCAL (1 - PCV) PNEUMOCOCCAL (1 - PCV) [facility] ic Comment on above: Postponed from 1974 (Declined at t his time) Start: 08-02-2022 End: 12-05-2022 CBC W Auto Differential panel - Blood CBC + DIFF Lab Routine Primary hypertension Expected: 08/02/2022, Expires: 12/05/2022 [facility] Work Phone: Comment on above: Expected: 08/02/2022, Expires: 3 Start: 08-02-2022 End: 12-05-2022 Comprehensive metabolic 2000 panel - Serum or Plasma COMP METABOLIC PANEL Lab Routine Primary hypertension Expected: 08/02/2022, Expires: 12/05/2022 [facility] Work Phone: Comment on above: Expected: 08/02/2022, Expires: 3 Start: 08-02-2022 End: 12-05-2022 Lipid 1996 panel - Serum or Plasma LIPID PANEL BASIC Lab Routine Primary hypertension Expected: 08/02/2022, Expires: 12/05/2022 [facility] Work Phone: Comment on above: Expected: 08/02/2022, Expires: 3 Start: 08-02-2022 End: 12-05-2022 Natriuretic peptide.B prohormone N-Terminal [Mass/volume] in Serum or Plasma NT PRO BNP Lab Routine Primary hypertension Expected: 08/02/2022, Expires: 12/05/2022 [facility] Work Phone: Comment on above: Expected: 08/02/2022, Expires: 3 Start: 07-06-2022 COVID-19 VACCINE (#1) COVID-19 VACCINE (#1) [facility] Comment on above: Postponed from 01[birth year]02/1969 (Declined at t his time) Start: 07-06-2022 Influenza vaccination [facility] Start: 06-13-2022 End: 08-13-2022 ALBUMIN/CREAT RATIO RND UR ALBUMIN/CREAT RATIO RND UR Lab Routine Diabetes mellitus (HCC) Expected: 06/13/2022, Expires: 08/13/2022 [facility] Work Phone: Comment on above: Expected: 06/13/2022, Expires: 2 Start: 06-13-2022 End: 08-13-2022 CBC panel - Blood by Automated count CBC Lab Routine Diabetes mellitus (HCC) Expected: 06/13/2022, Expires: 08/13/2022 [facility] Work Phone: Comment on above: Expected: 06/13/2022, Expires: 2 Start: 06-13-2022 End: 08-13-2022 Hemoglobin A1c in Blood HGB A1C Lab Routine Diabetes mellitus (HCC) Expected: 06/13/2022, Expires: 08/13/2022 [facility] Work Phone: Comment on above: Expected: 06/13/2022, Expires: 2 Start: 06-13-2022 End: 08-13-2022 SCHEDULE LAB TESTING SCHEDULE LAB TESTING Lab Routine Expected: 06/13/2022, Expires: 08/13/2022 [facility] Work Phone: Comment on above: Expected: 06/13/2022, Expires: 2 Start: 06-13-2022 End: 08-13-2022 Thyrotropin [Units/volume] in Serum or Plasma TSH BLD Lab Routine Acquired hypothyroidism Expected: 06/13/2022, Expires: 08/13/2022 [facility] Work Phone: Comment on above: Expected: 06/13/2022, Expires: 2 Start: 04-20-2022 ANNUAL PCP TEAM CHRONIC DISEASE VISIT ANNUAL PCP TEAM CHRONIC DISEASE VISIT [facility] Start: 01-06-2022 Hepatitis B surface antibody level LDL CHOLESTEROL [facility] Start: 10-20-2021 Hemoglobin A1c/Hemoglobin.total in Blood HBA1C [facility] Start: 01-17-2020 Hepatitis C antibody, confirmatory test DILATED RETINAL EXAM [facility] Start: 12-18-2019 Hepatitis B screening URINE ALBUMIN:CREATININE RATIO [facility] Start: 12-12-2019 3 comp foot exam completed DIABETIC FOOT EXAM [facility] Start: 04-28-2019 Urine microalbumin profile [facility] Start: 03-19-2019 Mammography MAMMOGRAM [facility] Start: 2018 SHINGRIX VACCINE (1 of 2) SHINGRIX VACCINE (1 of 2) [facility] Start: 2013 COLOGUARD (FIT-DNA) COLOGUARD (FIT-DNA) [facility] Start: 2013 Colonoscopy COLONOSCOPY [facility] Start: 2013 COLORECTAL CANCER SCREENING COLORECTAL CANCER SCREENING [facility] Start: [address] COLONOGRAPHY [facility] Start: 2013 FECAL OCCULT BLOOD FECAL OCCULT BLOOD [facility] Start: 2013 Screening for malignant neoplasm of colon [facility] Start: 2013 SIGMOIDOSCOPY SIGMOIDOSCOPY [facility] Start: 1987 HEPATITIS B (1 of 3 - Risk 3-dose series) HEPATITIS B (1 of 3 - Risk 3-dose series) [facility] Start: 1987 Hepatitis B Vaccine (1 of 3 - 19+ 3-dose series) Hepatitis B Vaccine (1 of 3 - 19+ 3-dose series) [facility] Start: 1986 Anxiety Screening Anxiety Screening [facility] Start: 1986 BP CONTROLLED (<130/80) BP CONTROLLED (<130/80) [facility] Start: 1986 HIV SCREENING HIV SCREENING [facility] Start: 1986 HIV screening HIV Screening [facility] Start: 1986 SPIROMETRY SPIROMETRY [facility] Start: 1984 ONE PNEUMOVAX PRIOR TO AGE 63 ONE PNEUMOVAX PRIOR TO AGE 63 [facility] Start: 1974 PNEUMOCOCCAL (1 - PCV) PNEUMOCOCCAL (1 - PCV) [facility] Start: 1973 COVID-19 VACCINE (#1) COVID-19 VACCINE (#1) [facility] Start: 1973 COVID-19 VACCINE (1) COVID-19 VACCINE (1) [facility] Start: 01-02-1969 COVID-19 VACCINE (#1) COVID-19 VACCINE (#1) [facility] Start: 1968 HEPATITIS B (1 of 3 - 3-dose series) HEPATITIS B (1 of 3 - 3-dose series) [facility] Start: 1968 Hepatitis B Vaccine (1 of 3 - 3-dose series) Hepatitis B Vaccine (1 of 3 - 3-dose series) [facility] COVID & INFLUENZA A/ B & RSV PCR, ROUTINE COVID & INFLUENZA A/B & RSV PCR, ROUTINE Microbiology Routine URI, acute Ordered: 11/11/2024 [facility] Work Phone: Comment on above: Ordered: 11/11/2024 End: 02-26-2024 DBT Breast - bilateral screening [facility] Work Phone: Comment on above: ONCE for 1 Occurrences starting 02/26/20 24 until 02/26/2024 ECG B/O W INTERP (ME D OFFICE) ECG B/O W INTERP (MED OFFICE) ECG Routine Pre-operative cardiovascular examination Ordered: 03/14/2022 [facility] Work Phone: Comment on above: Ordered: 03/14/2022 ECG B/O W INTERP (ME D OFFICE) ECG B/O W INTERP (MED OFFICE) ECG Routine PFO (patent foramen ovale) Ordered: 07/21/2022 [facility] Work Phone: Comment on above: Ordered: 07/21/2022 End: 08-02-2023 ECG COMPLETE ECG COMPLETE ECG Routine Primary hypertension 1 Occurrences starting 08/02/2022 until 08/02/2023 [facility] Work Phone: Comment on above: 1 Occurrences starting 08/02/2022 until 08/02/2023 End: 11-19-2023 ECG COMPLETE ECG COMPLETE ECG Routine PFO (patent foramen ovale) Primary hypertension Hypertension, unspecified type 1 Occurrences starting 11/19/2022 until 11/19/2023 [facility] Work Phone: Comment on above: 1 Occurrences starting 11/19/2022 until 11/19/2023 End: 08-02-2023 Echocardiography ECHO Cardiology Routine Primary hypertension 1 Occurrences starting 08/02/2022 until 08/02/2023 [facility] Work Phone: Comment on above: 1 Occurrences starting 08/02/2022 until 08/02/2023 End: 11-19-2023 Echocardiography ECHO Cardiology Routine PFO (patent foramen ovale) Primary hypertension Hypertension, unspecified type 1 Occurrences starting 11/19/2022 until 11/19/2023 [facility] Work Phone: Comment on above: 1 Occurrences starting 11/19/2022 until 11/19/2023 Hemoglobin.gastroint crispin nal.lower [Presence] in Stool by Immunoassay FECAL OCCULT BLOOD TEST Lab Routine Encounter for screening fecal occult blood testing Ordered: 11/20/2022 [facility] Work Phone: Comment on above: Ordered: 11/20/2022 Hemoglobin.gastroint crispin nal.lower [Presence] in Stool by Immunoassay FECAL OCCULT BLOOD TEST Lab Routine Encounter for screening fecal occult blood testing Ordered: 01/08/2024 [facility] Work Phone: Comment on above: Ordered: 01/08/2024 Hemoglobin.gastroint crispin nal.lower [Presence] in Stool by Immunoassay IMMUNOCHEMICAL FECAL OCCULT BLOOD TEST Lab Routine Encounter for screening fecal occult blood testing Ordered: 01/05/2025 [facility] Comment on above: Ordered: 01/05/2025 HIV 1+2 Ab [Presence ] in Serum or Plasma by Immunoassay HIV 1 2 COMBO(AG/AB),WITH REFLEX TO DIFFERENTIATION Lab Routine Screening for HIV (human immunodeficiency virus) Ordered: 11/20/2022 [facility] Work Phone: Comment on above: Ordered: 11/20/2022 End: 06-02-2023 THAD SCREENING W [facility] THAD SCREENING [facility] Radiology Routine Encounter for screening mammogram for breast cancer 1 Occurrences starting 05/03/2022 until 06/02/2023 [facility] Work Phone: Comment on above: 1 Occurrences starting 05/03/2022 until 06/02/2023 End: 02-06-2025 MG Breast Screening THAD SCREENING Radiology Routine Encounter for screening mammogram for breast cancer 1 Occurrences starting 01/08/2024 until 02/06/2025 [facility] Work Phone: Comment on above: 1 Occurrences starting 01/08/2024 until 02/06/2025 Patient Education ED Influenza (Adult) [facility] Work Phone: Patient referral [facility] Work Phone: PT PLAN OF CARE CERTIFICATION PT PLAN OF CARE CERTIFICATION Procedures Routine Leg length discrepancy Ordered: 03/06/2023 [facility] Work Phone: Comment on above: Ordered: 03/06/2023 Removal subcutaneous cardiac rhythm monitor REMOVAL SUBCUTANEOUS CARDIAC RHYTHM MONITOR History of loop recorder [place] EP LAB SARS-CoV-2 & FLU Ant igen (Rapid) SARS-CoV-2 & FLU Antigen (Rapid) [facility] Work Phone: End: 02-28-2024 XR HIP GENERAL 3V PELV/AP/LAT RIGHT XR HIP GENERAL 3V PELV/AP/LAT RIGHT Radiology Routine Pain in right hip 1 Occurrences starting 01/29/2023 until 02/28/2024 [facility] Work Phone: Comment on above: 1 Occurrences starting 01/29/2023 until 02/28/2024 XR HIP GENERAL 3V PELV/AP/LAT RIGHT XR HIP GENERAL 3V PELV/AP/LAT RIGHT Radiology Routine Pain in right hip 01/29/2023 2:20 PM EDT [facility] Work Phone: [facility] Immunizations Immunization Date Immunization Notes Care Provider Fa [facility] 01-08-2024 influenza, injectabl e, quadrivalent, contains preservative Isabel Davenport MD Work Phone: [facility] 01-08-2024 zoster vaccine recombinant Isabel Davenport MD Work Phone: [facility] 01-08-2024 influenza virus vaccine, unspecified formulation Isabel Davenport MD Work Phone: [facility] 11-20-2022 pneumococcal (PCV20) vaccine, 20 valent (PREVNAR 20) Isabel Davenport MD Work Phone: [facility] 11-20-2022 pneumococcal Conjugate, unspecified formulation Isabel Davenport MD Work Phone: [facility] Work Phone: 09-09-2022 COVID-19 original vaccine, age 12+ yr, monovalent (PFIZER-BIONTECH - NAIR TOP) Covid [facility] Work Phone: 08-12-2022 COVID-19 original vaccine, age 12+ yr, monovalent (PFIZER-BIONTECH - NAIR TOP) Edna [facility] 12-12-2018 influenza virus vaccine, unspecified formulation Isabel Davenport MD Work Phone: [facility] 09-05-2012 influenza virus vaccine, unspecified formulation Danette Lopez GUEST RELATIONS MANAGER.[employer] Work Phone: [facility] 04-28-2009 tetanus toxoid, reduced diphtheria toxoid, and acellular pertussis vaccine, adsorbed Danette Lopez GUEST RELATIONS MANAGER.[employer] Work Phone: [facility] Payers Date Payer Category Payer Self-pay [id number] 2023 [employer] Blue Shield BLUE CARD PPO OOS [id number] 2022 Unknown 2020 Medicaid [place] [employer] [id number] 2020-Present [phone] [address] [place] [address] Medicaid [id number] 2020 Medicaid [id number] 2020 Medicaid [id number] 2007 Private Health Insurance ALYSSIATJANI Chao [id number] 2007 Unknown [id number] 2007 Unknown [id number] 1968 Unknown [id number] 1968 Unknown [id number] 1968 Unknown [id number] 1968 Unknown [id number] 1968 Unknown [id number] Unknown VICTOR[employer] CMS [id number] Unknown SELF INS [facility] ROMERO STER BRUSH [id number] Unknown [id number] Unknown [id number] Unknown [id number] Social History Date Type Detail Facility Start: 06-14-2022 End: 03-25-2023 Tobacco smoking status NHIS Never smoked tobacco [facility] Start: 02-18-2022 End: 03-09-2025 Alcohol intake Current drinker of alcohol (finding) [facility] Start: 05-12-2020 End: 11-20-2022 History SDOH Alcohol Frequency 2 [facility] Start: 05-12-2020 End: 11-20-2022 History SDOH Alcohol Std Drinks 1 [facility] Start: 02-02-2020 End: 07-05-2020 History SDOH Social Connections Phone 3 [facility] Start: 02-02-2020 End: 11-20-2022 History SDOH Social Connections Living 7 [facility] Start: 02-02-2020 History SDOH Stress 4 [facility] Start: 07-05-2020 Education 21 [facility] Start: 1970 Sex Assigned At Female C [facility] Start: 02-08-2022 End: 07-21-2022 Exposure to SARS-CoV-2 (event) Not sure [facility] Start: 06-14-2022 Tobacco use and exposure Smokeless tobacco non-user [facility] Start: 10-22-2022 Tobacco smoking stat us CTIS Unknown if ever smoked [facility] Work Phone: Start: 11-20-2022 History SDOH Social Connections Get Together 98 [facility] Start: 03-27-2023 End: 12-30-2023 History of Social function [facility] Start: 03-27-2023 End: 12-30-2023 [facility] [employer] Has the [employer], [employer], or water [employer] threatened to shut off services in your home in past 12Mo Yes [facility] How often do you get together with friends or relatives? Patient refused [facility] Are you now , , , , never or living with a partner? Never [facility] How often to you hav e a drink containing alcohol? Monthly or less [facility] How many standard drinks containing alcohol do you have on a typical day? 1 or 2 [facility] How often do you hav e 6 or more drinks on 1 occasion? Never [facility] How hard is it for y ou to pay for the very basics like food, housing, medical care, and heating Hard [facility] Do you feel stress - tense, restless, nervous, or anxious, or unable to sleep at night because your mind is troubled all the time - these days [OSQ] Not at all [facility] (I/We) worried whenorberto er (my/our) food would run out before (I/we) got money to buy more. Never true [facility] In the past 12 month s, was there a time when you were not able to pay the mortgage or rent on time? No [facility] Start: 02-01-2020 Gender identity Identifies as female gender (finding) [facility] Start: 02-01-2020 Sexual orientation Heterosexual (kristine farnsworth) [facility] How hard is it for y ou to pay for the very basics like food, housing, medical care, and heating Somewhat hard [facility] Do you feel stress - tense, restless, nervous, or anxious, or unable to sleep at night because your mind is troubled all the time - these days [OSQ] To some extent [facility] Medical Equipment Procedure Code Equipment Code Equipment Origin al Text Equipment Identifier Dates Test blood sugar (s) 2 times daily. Dx: Type 2 DM - Uncontrolled E11.65 Insulin: No [id number], [id number] Start: 11-13-2022 Comment on above: Test blood sugar(s) 2 times daily. Dx: Type 2 DM - Uncontrolled E11.65 Insulin: No Goals Date Patient Goal Desired Activity /State Personal health goal Functional Status Date Assessment Result Facility 12-11-2022 Are you deaf, or do you have serious difficulty hearing No 12/11/2022 5:04 PM Elisabeth Avina, KELLEN No [facility] 12-11-2022 Are you blind, or do you have serious difficulty seeing, even when wearing glasses No 12/11/2022 5:04 PM Elisabeth Avina, KELLEN No [facility] 12-11-2022 Do you have serious difficulty walking or climbing stairs No 12/11/2022 5:04 PM Elisabeth Avina, KELLEN No [facility] 12-11-2022 Do you have difficul ty dressing or bathing No 12/11/2022 5:04 PM Elisabeth Avina, KELLEN No [facility] 12-11-2022 Because of a physica l, mental, or emotional condition, do you have difficulty doing errands alone such as visiting a physician's office or shopping No 12/11/2022 5:04 PM Elisabeth Avina, KELLEN No [facility] Mental Status Date Assessment Result Facility 12-11-2022 Because of a physica l, mental, or emotional condition, do you have serious difficulty concentrating, remembering, or making decisions No 12/11/2022 5:04 PM Elisabeth Avina, KELLEN No [facility] 10-22-2022 Cognitive function Level Of Cons ciousness Awake;Alert;Appropriate;Fol lows Commands [facility] Work Phone: Clinical Notes 01-16-2019 to 04-21-2025 Elizabeth Pereira MD - 04/21/2025 10:30 AM EDTTelephone Encounter - Anastasia Ulloa LPN - 04/21/2025 9:08 AM EDTTelephone Encounter - Anastasia Ulloa LPN - 04/21/2025 9:08 AM EDT Note Date & Type Note Facility 04-21-2025 History of Present illness Narrative Images from the original note were not included. Allergy and Immunology All aspects of this note have been reviewed and updated. Martha Venegas is a 54 year old female PMHx CVA, HTN, asthma, acquired hypothyroidism who was last seen by myself on 01/15/2025, here today for follow up. Since last visit, she notes that she took karely 1-2 tablets for 1 week after we last saw each other but has not taken any since then. She denies any other swelling, hives since the 3rd week of January. No burning, bruising, or scarring. She continues to note darken lips and irritation of her lips when she is around manufacturing labs and lips glosses. She tolerates corn of the cob, dairy, garlic, and other ingredients listed on the packaging. Her daughter underwent patch testing previously. MYC ASTHMA CONTROL TEST Question 04/14/2025 10:31 AM EDT - Filed by Patient 01/13/2025 3:22 PM EDT - Filed by Patient Keep from getting things done 5 None of the time 5 None of the time Shortness of breath 5 Not at all 5 Not at all Symptoms wake up at night or early in morning 5 Not at all 5 Not at all How often have you used inhaler/nebulizer 5 Not at all 5 Not at all Rate your asthma control over past 4 weeks 5 Completely controlled 5 Completely controlled Asthma Control Test Score (range: 0 - 25) 25 25 In the last 24 hours, how many hives have you experienced? 0 None In the last 24 hours, evaluate your pruritis associated with hives: 0 None UAS-24 hrs Total Score (0-6): 0 Over the last 7 days, on average how many hives have you experienced per day? 1 Mild (<20 wheals/day) Over the last 7 days, evaluate your pruritis associated with hives: 0 None UAS-7 day Total Score (0-6): 1 Documentation from Previous Encounters: January 15, 2025: The patient reports that she has been [...] Is there any exposure to vaping? No Current Outpatient Medications Medication Sig losartan (COZAAR) 100 mg tablet take 1 tablet by mouth once daily clopidogrel (PLAVIX) 75 mg tablet take 1 tablet by mouth once daily EPINEPHrine (EPIPEN) 0.3 mg/0.3 mL auto-injector Inject 0.3 mL intramuscularly as needed. fluticasone (FLONASE) 50 mcg/actuation nasal spray instill [...] mouth two times a day with meals. blood sugar diagnostic (BLOOD GLUCOSE TEST) test strip Test blood sugar(s) 2 times daily. Dx: Type 2 DM - Uncontrolled E11.65 Insulin: No Lancets lancets Test blood sugar(s) 2 times daily. Dx: Type 2 DM - Uncontrolled E11.65 Insulin: No aspirin, enteric coated (ASPIRIN, ENTERIC COATED) 81 mg EC tablet take 1 tablet by mouth once daily fexofenadine (KARELY) 180 mg tablet Take 1 tablet by mouth once daily as needed. docosanol (ABREVA) 10 % crea Apply to affected area five times a day. levothyroxine (LEVOXYL) 50 mcg tablet Take 1 tablet by mouth once daily. Take on empty stomach. For Thyroid TRUE METRIX GLUCOSE METER Glucose Meter of Choice - Kit - Dx Type 2 DM - Uncontrolled E11.65 Miscellaneous Medical Supply 1 Each once daily. MULTIVITAMIN ORAL Take by mouth once daily. (Patient not taking: Reported on 02/16/2025) No current facility-administered medications for this visit. PAST MEDICAL HISTORY Diagnosis Date Asthma (HCC) Seasonal, uses Albuterol once a month Diabetes mellitus (HCC) Family history of sleep apnea History of stroke Hypertension Mixed hyperlipidemia PFO (patent foramen ovale) (HCC) Status post placement of implantable loop recorder Stroke (cerebrum) ([facility]) TMJ arthritis PAST SURGICAL HISTORY Procedure Laterality [...] Use Smoking status: Never Smokeless tobacco: Never Pulse 64, weight 91 kg (200 lb 9.9 oz), SpO2 100%. Body mass index is 34.44 kg/m . Physical Exam Vitals reviewed. Constitutional: Appearance: She is not ill-appearing or toxic-appearing. HENT: Head: Normocephalic and atraumatic. Right Ear: External ear normal. Left Ear: External ear normal. Nose: Nose normal. Mouth/Throat: Mouth: Mucous membranes are moist. Pharynx: Oropharynx is clear. Eyes: General: No scleral icterus. Conjunctiva/sclera: Conjunctivae normal. Cardiovascular: Rate and Rhythm: Normal rate and regular rhythm. Pulmonary: Effort: Pulmonary effort is normal. Breath sounds: Normal breath sounds. Skin: General: Skin is warm and dry. Findings: No rash. Neurological: Mental Status: She is alert. Psychiatric: Behavior: Behavior normal. Diagnostic Testing: Labs I personally reviewed this patient's results Latest Ref Rng 04/14/2024 11/11/2024 01/02/2025 WBC [...] asthma, acquired hypothyroidism who presents today for follow up. 1. Chronic idiopathic urticaria - ICD9: 708.1, ICD10: L50.1 (primary diagnosis) 2. Angioedema, subsequent encounter - ICD9: V58.89, 995.1, ICD10: T78.3XXD - +COVID in November 2024, family member passed in December Plan: > Continue fexofenadine 180 mg daily as needed. > Advise avoidance of NSAIDs, opiates and WHIT inhibitors which can lower the threshold for urticaria or angioedem 3. Cracked lips - ICD9: 528.5, ICD10: K13.0 - Ddx: CD Plan: > Discussed finding list of ingredients to foods and sending via [email or web address] message. > Discussed dermatology evaluation and consideration of patch testing. Consult placed. > Red Dye IgE ordered. 4. Adverse reaction to food, subsequent encounter - ICD9: V58.89, 995.7, ICD10: T78.1XXD, not addressed - Listed shellfish and fish allergy Plan: > Continue to avoid all seafood. > Epinephrine autoinjector Rx given. > Food anaphylaxis plan created and reviewed with patient. Discussed medication dosage, usage, side effects, and goals of treatment in detail. Follow-up: Return if symptoms worsen or fail to improve. Patient advised to call or return sooner should current symptoms worsen or fail to improve or if new symptoms or problems arise. Elizabeth Pereira MD Allergy and Immunology [facility] Medical Decision Making: Problems: Moderate: 2+ stable chronic illnesses Data: Unique test(s) ordered: 2 Risk: Moderate: Drug management Medical Decision Making Level: 4 - Moderate documented in this encounter [facility] 04-21-2025 Note HNO ID: [id number] Author: ELIZABETH PEREIRA MD Service: ? Author Type: Physician Type: Progress Notes Filed: 04/21/2025 11:33 Note Text: Allergy and Immunology All aspects of this note have been reviewed and updated. Martha Venegas is a 54 year old female PMHx CVA, HTN, asthma, acquired hypothyroidism who was last seen by myself on 01/15/2025, here today for follow up. Since last visit, she notes that she took karely 1-2 tablets for 1 week after we last saw each other but has not taken any since then. She denies any other swelling, hives since the 3rd week of January. No burning, bruising, or scarring. She continues to note darken lips and irritation of her lips when she is around manufacturing labs and lips glosses. She tolerates corn of the cob, dairy, garlic, and other ingredients listed on the packaging. Her daughter underwent patch testing previously. MYC ASTHMA CONTROL TEST Question 04/14/2025 10:31 AM EDT - Filed by Patient 01/13/2025 3:22 PM EDT - Filed by Patient Keep from getting things done 5 None of the time 5 None of the time Shortness of breath 5 Not at all 5 Not at all Symptoms wake up at night or early in morning 5 Not at all 5 Not at all How often have you used inhaler/nebulizer 5 Not at all 5 Not at all Rate your asthma control over past 4 weeks 5 Completely controlled 5 Completely controlled Asthma Control Test Score (range: 0 - 25) 25 25 In the last 24 hours, how many hives have you experienced? 0 None In the last 24 hours, evaluate your pruritis associated with hives: 0 None UAS-24 hrs Total Score (0-6): 0 Over the last 7 days, on average how many hives have you experienced per day? 1 Mild (<20 wheals/day) Over the last 7 days, evaluate your pruritis associated with hives: 0 None UAS-7 day Total Score (0-6): 1 Documentation from Previous Encounters: January 15, 2025: The patient reports that she has been [...] Is there any exposure to vaping? No Current Outpatient Medications Medication Sig losartan (COZAAR) 100 mg tablet take 1 tablet by mouth once daily clopidogrel (PLAVIX) 75 mg tablet take 1 tablet by mouth once daily EPINEPHrine (EPIPEN) 0.3 mg/0.3 mL auto-injector Inject 0.3 mL intramuscularly as needed. fluticasone (FLONASE) 50 mcg/actuation nasal spray instill 1 TO 2 sprays into each nostril once daily if needed SITagliptin phosphate (JANUVIA) 50 mg tablet Take 1 tablet by mouth once daily. atorvastatin (LIPITOR) 40 mg tablet Take 1 tablet by mouth once daily. metoprolol succinate ER (TOPROL XL) 25 mg 24 hr tablet Take 1 tab (more content not included)... [facility] 04-21-2025 Telephone encounter Note Received EKG report from [facility]. Placed in provider's inbox for review. Route to MA scanning [facility] 04-21-2025 Miscellaneous Notes Received EKG report from [facility]. Placed in provider's inbox for review. Route to MA scanning documented in this encounter [facility] 04-10-2025 Telephone encounter Note Cardiac Clearance received from [facility] for Left myringotomy with T-Tube on 05/19/25 Form scanned and placed in Az's box for review. Duane Norris [facility] 04-10-2025 Miscellaneous Notes Cardiac Clearance received from [facility] for Left myringotomy with T-Tube on 05/19/25 Form scanned and placed in Az's box for review. Duane Norris documented in this encounter [facility] 04-09-2025 Telephone encounter Note Received imaging report for sinus/ facial bone from [facility]. Placed in provider's inbox for review. Route to MA scanning [facility] 04-09-2025 Miscellaneous Notes Received imaging report for sinus/ facial bone from [facility]. Placed in provider's inbox for review. Route to MA scanning documented in this encounter [facility] 04-09-2025 Radiology Diagnostic study note [facility] Imaging Services [address] [place] [address] Sinus/Facial Bone MR#: [id number] Acct: [id number] Name: MARTHA VENEGAS Rep #: [id number] : 1970 F 54 From: Brian Duncan MD PCP: Dr. Jaspreet Davenport MD Status: REG CLI Study:Sinus/Facial Bone Date of Exam: Exam# [id number] Ordering Dr: Dandre Melissa MD PROCEDURE: SINUS/FACIAL BONE REASON FOR EXAM: SINUSITIS None. TECHNIQUE: CT of the paranasal sinuses without contrast. Coronal and Sagittal reconstruction series were provided. One or more dose reduction techniques were used (e.g., Automated exposure control, adjustment of the mA and/or kV according to patient size, use of iterative reconstruction technique). CTDI volume: 33.06 mGy DLP: 883.43 mGy cm COMPARISON: None. FINDINGS: Frontal: Clear. Ethmoid: Clear. Sphenoid: Clear. Maxillary: Clear. Turbinates: Unremarkable. Nasal Septum: There is mild nasal septal deviation to the left. There is a small left-sided nasal spur. Mastoids/Middle Ears: There is opacification of the mastoid air cells on the left. The right mastoid air cells and the middle ears are unremarkable. Visualized intracranial contents: There is calcific vascular disease of the intracranial portion of both internal carotid arteries. The brain parenchyma has an unremarkable unenhanced CT appearance. Intraorbital contents: Normal. Calvarium, skull base, mandible, and facial soft tissues: The calvarium skull base and mandible are unremarkable. The temporomandibular joints are normal. There are calcifications within the palatine tonsils consistent with chronic inflammation. There are multiple reactive cervical lymph nodes. CT/Sinus/Facial Bone IMPRESSION: 1. The paranasal sinuses are clear. 2. Left mastoiditis. 3. Other findings as noted. Reading Location: [id number] CC: Dr. Dandre Melissa MD; Dr. Jaspreet Davenport MD ~ [employer] Consulting Director: Signed [facility] Work Phone: 03-13-2025 Telephone encounter Note [facility] paperwork faxed today. [facility] 03-13-2025 Miscellaneous Notes [facility] paperwork faxed today. documented in this encounter [facility] 03-09-2025 History and physical note [facility] HISTORY AND PHYSICAL EXAMINATION SHORT FORM EVALUATION DATE: 03/09/2025 EVALUATION TIME: 8:40 AM CHIEF COMPLAINT: Stool Guaiac Positive HPI: This is a 54 year old female who presents with Positive immunochemical fecal occult blood. PAST MEDICAL HISTORY: PAST MEDICAL HISTORY Diagnosis Date Asthma ([facility]) Seasonal, uses Albuterol once a month Diabetes mellitus ([facility]) Family history of sleep apnea History of stroke Hypertension Mixed hyperlipidemia PFO (patent foramen ovale) ([facility]) Status post placement of implantable loop recorder Stroke (cerebrum) ([facility]) TMJ arthritis PAST SURGICAL HISTORY: PAST SURGICAL [...] Inject 0.3 mL intramuscularly as needed. fexofenadine (KARELY) 180 mg tablet Take 1 tablet daily. [...] DATE: March 09, 2025 TIME: 8:40 AM T [facility] Work Phone: 03-09-2025 History and physical note ENDO HISTORY AND PHYSICAL EXAMINATION SHORT FORM EVALUATION DATE: 03/09/2025 EVALUATION TIME: 8:40 AM CHIEF COMPLAINT: Stool Guaiac Positive HPI: This is a 54 year old female who presents with Positive immunochemical fecal occult blood. PAST MEDICAL HISTORY: PAST MEDICAL HISTORY Diagnosis Date Asthma (HCC) Seasonal, uses Albuterol once a month Diabetes mellitus (HCC) Family history of sleep apnea History of stroke Hypertension Mixed hyperlipidemia PFO (patent foramen ovale) (HCC) Status post placement of implantable loop recorder Stroke (cerebrum) (HCC) TMJ arthritis PAST SURGICAL HISTORY: PAST SURGICAL [...] Inject 0.3 mL intramuscularly as needed. fexofenadine (KARELY) 180 mg tablet Take 1 tablet daily. [...] TIME: 8:40 AM documented in this encounter [facility] 03-09-2025 Nurse Note PRE OP LEARNING ASSESSMENT PROCEDURE/SURGERY: GI PROCEDURES: Colonoscopy READINESS TO LEARN COGNITIVE ABILITY: Alert and oriented MOTIVATION TO LEARN: Eager FAMILY SUPPORT: High - Very involved in pt care PATIENT LEARNS BEST BY: Individual Instruction FACTORS AFFECTING LEARNING: None PHYSICAL LIMITATIONS AFFECTING LEARNING: None Electronically Signed By: Charo Ferrera RN In Department: AMBULATORY SURGERY [facility] 03-09-2025 Nurse Note PRE OP LEARNING ASSESSMENT PROCEDURE/SURGERY: GI PROCEDURES: Colonoscopy READINESS TO LEARN COGNITIVE ABILITY: Alert and oriented MOTIVATION TO LEARN: Eager FAMILY SUPPORT: High - Very involved in pt care PATIENT LEARNS BEST BY: Individual Instruction FACTORS AFFECTING LEARNING: None PHYSICAL LIMITATIONS AFFECTING LEARNING: None Electronically Signed By: Charo Ferrera RN In Department: AMBULATORY SURGERY documented in this encounter [facility] 03-04-2025 Telephone encounter Note [facility] f[employer]a forms received. Placed in pcp inbox for review. [facility] 03-04-2025 Miscellaneous Notes [facility] f[employer]a forms received. Placed in pcp inbox for review. Noted, will await receipt of fax Martha is calling Isabel Davenport MD today to advise she is having a procedure on 03/09/2025 , the [facility] paperwork will be coming to request to be off starting 03/07/2025 and 03/08/2025 which are her colonoscopy prep dates as the patient is already off on 03/09/2025. This is just a fyi that this paperwork with be coming from [employer] for these two FMLA dates Patient has been identified by name and birthdate. Duration of symptoms: N/A Person calling: self Call patient at: on cell [phone] (home) [phone] (cell) Was an appointment scheduled: No Closing statement: Results or non-symptom based questions: Thank you for calling [facility], your call will be returned within the next business day. Luann Huynh documented in this encounter [facility] 03-03-2025 Telephone encounter Note Noted, will await receipt of fax [facility] 03-03-2025 Telephone encounter Note This patient has been contacted and rescheduled to [facility] Work Phone: 03-03-2025 Miscellaneous Notes This patient has been contacted and rescheduled to [facility] Per Dr. Wade, This pt. needs rescheduled under [facility]. Please reach out to pt and assist in rescheduling. Thank you. Yanet Meyer, RN documented in this encounter [facility] 03-03-2025 Telephone encounter Note Per Dr. Wade, This pt. needs rescheduled under [facility]. Please reach out to pt and assist in rescheduling. Thank you. Yanet Meyer, RN [facility] 03-03-2025 Telephone encounter Note Martha is calling Isabel Davenport MD today to advise she is having a procedure on 03/09/2025 , the [facility] paperwork will be coming to request to be off starting 03/07/2025 and 03/08/2025 which are her colonoscopy prep dates as the patient is already off on 03/09/2025. This is just a fyi that this paperwork with be coming from [employer] for these two FMLA dates Patient has been identified by name and birthdate. Duration of symptoms: N/A Person calling: self Call patient at: on cell [phone] (home) [phone] (cell) Was an appointment scheduled: No Closing statement: Results or non-symptom based questions: Thank you for calling [facility], your call will be returned within the next business day. Luann Huynh [facility] 02-27-2025 Note HNO ID: [id number] Author: ETHAN ROMERO Mammo Tech Service: ? Author Type: Saw Cleaner Type: Progress Notes Filed: 02/27/2025 08:38 Note [...] PATIENT PRESENTS WITH AN IMPLANTABLE OR ATTACHED WASHER CARCASS: No RADIOLOGY DEPARTMENT: Mammography PERIPHERAL IV DATA: Not applicable SIGNED BY: Lukasz Sebastian February 27, 2025 8:38 AM [facility] 02-23-2025 Telephone encounter Note Pt's name has been added to arnulfo procedure board. Colleen Herrera RN [facility] 02-23-2025 Miscellaneous Notes Pt's name has been added to arnulfo procedure board. Colleen Herrera RN Patient is scheduled for an ILR Removal on 04/[address] Alcala. The hospital will call the day before between 2-5pm with your arrival time. You should not eat or drink after midnight the day before the procedure. You will need a hack driver when released from the hospital You should continue to take medications as prescribed the morning of the procedure with just a sip of water but hold Januvia 2 days prior Spoke with [facility] on February 23, 2025. Informed of instructions as stated above. Patient verbalized understanding. Sury Oliveira documented in this encounter [facility] 02-23-2025 Telephone encounter Note Patient is scheduled for an ILR Removal on 04/[address] Alcala. The hospital will call the day before between 2-5pm with your arrival time. You should not eat or drink after midnight the day before the procedure. You will need a hack driver when released from the hospital You should continue to take medications as prescribed the morning of the procedure with just a sip of water but hold Januvia 2 days prior Spoke with [facility] on February 23, 2025. Informed of instructions as stated above. Patient verbalized understanding. Sury Oliveira [facility] 02-23-2025 Telephone encounter Note Informed patient that Dr. Alcala will make arrangements for device explantation. Patient verbalizes understanding. Cesia Flores LPN [facility] 02-23-2025 Miscellaneous Notes Informed patient that Dr. Alcala will make arrangements for device explantation. Patient verbalizes understanding. Cesia Flores LPN Will make arrangements for device explantation, please inform the patient. Belén Alcala MD documented in this encounter [facility] 02-23-2025 Telephone encounter Note Will make arrangements for device explantation, please inform the patient. Belén Alcala MD [facility] 02-16-2025 Telephone encounter Note Looks like Dr. Alcala had implanted the loop recorder. I've included him in this message to see if he can arrange extraction. Thanks, Merari Camarillo MD [facility] 02-16-2025 Miscellaneous [address] Looks like Dr. Alcala [...] about having it removed. Thanks Phyllis Bernardo APRN.CUT OFF SAW GRADER documented in this encounter [facility] 02-16-2025 Telephone encounter Note This patient has an old loop recorder in that is no longer being used. She has misplaced the card for it and now is being told she can't fly with it. She is inquiring about having it removed. Thanks Phyllis Bernardo APRN.CUT OFF SAW GRADER [facility] Work Phone: 02-16-2025 Note HNO ID: [id number] Author: PHYLLIS BERNARDO APRN.SRAVANTHI Service: ? Author Type: Nurse Practitioner [...] hyperlipidemia PFO (patent foramen ovale) ([facility]) Status post placement of implantable loop recorder Stroke (cerebrum) ([facility]) TMJ arthritis PAST SURGICAL HISTORY Procedure Laterality [...] Inject 0.3 mL intramuscularly as needed. fexofenadine (KARELY) 180 mg tablet Take 1 tablet daily. [...] Review of Systems (more content not included)... [facility] 02-16-2025 History of Present illness Narrative [...] hyperlipidemia PFO (patent foramen ovale) ([facility]) Status post placement of implantable loop recorder Stroke (cerebrum) ([facility]) TMJ arthritis PAST SURGICAL HISTORY Procedure Laterality [...] Inject 0.3 mL intramuscularly as needed. fexofenadine (KARELY) 180 mg tablet Take 1 tablet daily. [...] daily. Dx: Type 2 DM - Uncontrolled .65 Insulin: No TRUE METRIX GLUCOSE METER Glucose Meter of Choice - Kit - Dx Type 2 DM - Uncontrolled Miscellaneous Medical Supply 1 Each once daily. [...] BPM Assessment/Plan: 1. PFO (patent foramen ovale) (HCC) (Q21.12) Patient has a history of PFO identified during CVA workup in January 2019. LB at that time showed normal LV systolic function with no evidence of thrombus or masses. A loop recorder was implanted in August 2019, which did not show any evidence of arrhythmias. PFO closure was attempted on 12/11/2022 at [facility], but no intracardiac shunting was found. Recent [...] next follow-up in 6 months. Phyllis Bernardo APRN.CUT OFF SAW GRADER Return in about 6 months (around 08/18/2025), or with Dr. Camarillo or [facility]. Medical Decision Making: Problems: Moderate: 2+ stable chronic illnesses Data: Unique test result(s) reviewed: 1 Risk: Moderate: Drug management Medical Decision Making Level: 4 - Moderate Please Note: This office note has been created using [employer], and consent was obtained by the patient documented in this encounter [facility] 02-16-2025 Instructions Phyllis Bernardo APRN.SRAVANTHI - 02/16/2025 10:00 AM EDT Continue current regimen I will discuss loop recorder removal and update you Follow up in 6 months with [facility]IA or Dr. Camarillo Please call if you have any questions or concerns documented in this encounter [facility] 02-03-2025 Telephone encounter Note Received 02/03/2025 from [facility] . Placed in provider's inbox for review. Route to AR for faxing. [facility] 02-03-2025 Miscellaneous Notes Received 02/03/2025 from [facility] . Placed in provider's inbox for review. Route to [place] for faxing. documented in this encounter [facility] 01-29-2025 Telephone encounter Note The following approved medication requests have been transmitted electronically. Requested Prescriptions Signed Prescriptions Disp Refills clopidogrel (PLAVIX) 75 mg tablet 360 tablet 3 Sig: take 1 tablet by mouth once daily Authorizing Provider: ISABEL DAVENPORT MD [facility] 01-29-2025 Telephone encounter Note The following approved medication requests have been transmitted electronically. Requested Prescriptions Signed Prescriptions Disp Refills losartan (COZAAR) 100 mg tablet 360 tablet 3 Sig: take 1 tablet by mouth once daily Authorizing Provider: ISABEL DAVENPORT MD [facility] 01-29-2025 Miscellaneous Notes The following approved medication [...] 2025 10:03 AM documented in this encounter [facility] 01-29-2025 Miscellaneous Notes The following approved medication [...] 2025 11:37 AM documented in this encounter [facility] 01-29-2025 Telephone encounter Note Prescription Refill Information [...] Lei LPN January 29, 2025 11:37 AM [facility] 01-29-2025 Telephone encounter Note Prescription Refill Information [...] Lei LPN January 29, 2025 10:03 AM [facility] 01-15-2025 Note HNO ID: [id number] Author: CARMELITA LARSON RN Service: ? Author [...] By Carmelita Larson RN In Department: ALLERGY [facility] 01-15-2025 History of Present illness Narrative AMBULATORY [...] Inject 0.3 mL intramuscularly as needed. fexofenadine (KARELY) 180 mg tablet Take 1 tablet daily. [...] arise. Elizabeth Pereira MD Allergy and Immunology [facility] Medical Decision Making: Problems: Moderate: New problem with uncertain prognosis Data: Unique test result(s) reviewed: 3+ Risk: Moderate: Drug management Medical Decision Making Level: 4 - Moderate documented in this encounter [facility] 01-15-2025 Note HNO ID: [id number] Author: ELIZABETH PEREIRA MD Service: ? Author Type: Physician [...] Inject 0.3 mL intramuscularly as needed. fexofenadine (KARELY) 180 mg tablet Take 1 tablet daily. [...] by mouth once (more content not included)... [facility] 01-05-2025 Note HNO ID: [id number] Author: ISABEL DAVENPORT MD Service: ? Author Type: Physician Type: Progress Notes Filed: 01/05/2025 11:09 Note Text: Off work Dec 16. 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 Electronically Signed: Antwon Ohara. January 05, 2025 9:34 AM Provider Attestation: Isabel Tsang MD, personally performed the services described in [...] 2025 11:04 AM documented in this encounter [facility] 01-05-2025 Note HNO ID: [id number] Author: ISABEL DAVENPORT MD Service: ? Author [...] report a similar episode when she had [employer] Due for BP Controlled (<130/80) [...] to breast cancer Plan: Pt brought in [facility] paperwork, was out of work from [...] sooner as needed (more content not included)... [facility] 12-25-2024 Telephone encounter Note Received [facility] paperwork from [facility]. Placed in provider's inbox for review. Route to [place] fax [facility] 12-25-2024 Miscellaneous Notes Received [facility] paperwork from [facility]. Placed in provider's inbox for review. Route to [place] fax documented in this encounter [facility] 12-23-2024 Note Patient Outreach (IN TMMN) THEOMARTHA ([id number]) 1970 F Date Time Provider Department 12/23/24 [...] [E11.9] Order(s):COMPLETE BLOOD COUNT [SQCBC] Order #: [id number] FUTURE Prescriptions as of 12/26/2024 - atorvastatin [...] 04/08/2024 Presbyopia [H52.4] 04/08/2024 Encounter Status:Closed by LORRAINE PRAJAPATI on 12/26/24 [facility] 12-19-2024 Note HNO ID: [id number] Author: ?, ?, ? Service: ? Author Type: ? Type: Progress Notes Filed: 12/19/2024 09:12 Note Text: Called and scheduled pt appts. [facility] 12-19-2024 History of Present illness Narrative Called and scheduled pt appts. 1st attempt to schedule with primary care, sent [email or web address] message. Millie Balderrama Patient is overdue for office visit for diabetes management, please schedule LETHA with either provider. Also due for fasting labs, please complete 1 week prior to appointment, offer to schedule lab as well Vadim Teixeira APRN.CNP documented in this encounter [facility] 12-17-2024 Note HNO ID: [id number] Author: ?, ?, ? Service: ? Author Type: ? Type: Progress Notes Filed: 12/19/2024 09:12 Note Text: 1st attempt to schedule with primary care, sent [email or web address] message. Millie Balderrama [facility] 12-17-2024 Note HNO ID: [id number] Author: AVDIM TEIXEIRA APRN.CNP Service: ? Author Type: Nurse Practitioner Type: Progress Notes Filed: 12/19/2024 09:12 Note Text: Patient is overdue for office visit for diabetes management, please schedule LETHA with either provider. Also due for fasting labs, please complete 1 week prior to appointment, offer to schedule lab as well Vadim Teixeira APRN.CNP [facility] 12-17-2024 Note Patient Outreach (FP WADS) MARTHA VENEGAS ([id number]) 1970 F Date Time Provider Department 12/17/24 ISABEL DAVENPORT During your visit today, we recorded the following information about you: Vadim Teixeira APRN.SRAVANTHI 12/19/2024 9:12 AM Signed Patient is overdue for office visit for diabetes management, please schedule LETHA with either provider. Also due for fasting labs, please complete 1 week prior to appointment, offer to schedule lab as well Vadim Teixeira APRN.Millie Nelson 12/19/2024 9:12 AM Signed 1st attempt to schedule with primary care, sent [email or web address] message. Arun Ni 12/19/2024 9:12 AM Signed [...] [E78.2] Order(s):LIPID PANEL BASIC [SQLIPB] Order #: [id number] FUTURE HEMOGLOBIN A1C [[id number]] Order #: [id number] FUTURE Prescriptions as of 12/19/2024 - atorvastatin [...] Encounter Status:Closed by ARUN FRAZIER on 12/19/24 [facility] 11-12-2024 Telephone encounter Note Pt was notified of the results. Pt verbalized understanding. 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 documented in this encounter [facility] 11-12-2024 Telephone encounter Note You tested positive [...] days, such as taking additional steps for rug cleaner helper air, hygiene, masks, physical distancing, and/or testing [...] your symptoms are worsening or not improving. [facility] Work Phone: 11-11-2024 History of Present illness [...] PATIENT PRESENTS WITH AN IMPLANTABLE OR ATTACHED WASHER CARCASS: No RADIOLOGY DEPARTMENT: General X-ray: Exam(s) Completed: Chest X-Ray PERIPHERAL IV DATA: Not applicable SIGNED BY: RT Mariela(R) November 11, 2024 2:57 PM documented in this encounter [facility] 11-11-2024 Note HNO ID: [id number] Author: LUIS A HADDAD RT(R) Service: Radiology Author Type: Technologist Type: Progress [...] PATIENT PRESENTS WITH AN IMPLANTABLE OR ATTACHED WASHER CARCASS: No RADIOLOGY DEPARTMENT: General X-ray: Exam(s) Completed: Chest X-Ray PERIPHERAL IV DATA: Not applicable SIGNED BY: RT Mariela(Herbie) November 11, 2024 2:57 PM [facility] 11-11-2024 Note HNO ID: [id number] Author: ENEIDA LOYOLA PA Service: ? Author Type: Physician Conduit Cleaner Type: Progress Notes Filed: 11/11/2024 15:21 Note Text: This note was created using [employer]. Subjective Martha Venegas is a 54 year [...] ICD10: R05.1 (prim (more content not included)... [facility] 11-11-2024 History of Present illness Narrative This note was created using NoteWriter. Subjective Martha Venegas is a 54 year [...] evaluation. KRYSTYNA Renteria documented in this encounter [facility] 09-15-2024 Telephone encounter Note Prescription Refill Information [...] Napoles MA September 15, 2024 9:45 AM [facility] 09-15-2024 Miscellaneous Notes Prescription Refill Information The [...] 2024 9:45 AM documented in this encounter [facility] 07-04-2024 Telephone encounter Note The following approved medication requests have been transmitted electronically. Requested Prescriptions Signed Prescriptions Disp Refills atorvastatin (LIPITOR) 40 mg tablet 30 tablet 1 Sig: take 1 tablet by mouth once daily Authorizing Provider: ISABEL DAVENPORT MD [facility] 07-04-2024 Miscellaneous Notes The following approved medication [...] 2024 9:57 AM documented in this encounter [facility] 07-04-2024 Telephone encounter Note Prescription Refill Information [...] Napoles MA July 04, 2024 9:57 AM [facility] 06-11-2024 Note HNO ID: [id number] Author: MERARI CAMARILLO MD Service: ? Author [...] town. 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 She was found to have hemianopsia and was taken to the ER for further evaluation. 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 She was admitted to [facility] for further evaluation. Of note, prior [...] of atrial arrhythmias. Patient was referred to [facility] for PFO closure. 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 [facility] 06-11-2024 History of Present illness Narrative [...] town. 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 She was found to have hemianopsia and was taken to the ER for further evaluation. 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 She was admitted to [facility] for further evaluation. Of note, prior [...] of atrial arrhythmias. Patient was referred to [facility] for PFO closure. 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 [...] have confirmed and edited as necessary, the [facility] and [facility] PHYSICAL EXAMINATION: BP 180/103[hasnt taken medication yet [...] aneurysm noted with evidence of PFO with bpcs-xb-tnybg shunting by color Doppler and right to left shunting with agitated saline contrast. I have personally reviewed the Electrocardiogram and reports of prior echocardiograms as per above. I also reviewed records of patient's hospitalization at [facility] in 01/21 in [facility]. ASSESSMENT: Ms. Venegas is a 53 year [...] Merari Camarillo MD documented in this encounter [facility] 06-11-2024 Instructions Merari Camarillo MD - 06/11/2024 2:42 PM EDT Restart taking medications Monitor home blood pressures and call us with readings in 4 weeks Once blood pressures improved, restart regular exercise program with goal of walking 30 minutes, 5 days weekly documented in this encounter [facility] 06-11-2024 Nurse Note Patient has no cardiac complaints today. Mckenzie Flores CMA [facility] 06-11-2024 Nurse Note Patient has no cardiac complaints today. Mckenzie Flores CMA documented in this encounter [facility] 05-12-2024 Telephone encounter Note Prescription Refill Information [...] Ulloa LPN May 12, 2024 10:55 AM [facility] 05-12-2024 Miscellaneous Notes Prescription Refill Information The [...] 2024 10:55 AM documented in this encounter [facility] 05-12-2024 Telephone encounter Note Prescription Refill Information [...] Ulloa LPN May 12, 2024 9:38 AM [facility] 05-12-2024 Miscellaneous Notes Prescription Refill Information The [...] 2024 9:38 AM documented in this encounter [facility] 04-17-2024 Telephone encounter Note Made appointment for patient [facility] 04-17-2024 Miscellaneous Notes Made appointment for patient Please schedule appointment to address the oamr Davenport MD documented in this encounter [facility] 04-16-2024 Telephone encounter Note Please schedule appointment to address the omar Davenport MD [facility] 04-08-2024 History of Present illness Narrative Low vision right eye category 1, low vision left eye category 1 (primary encounter diagnosis) Homonymous hemianopsia, left Occipital stroke (hcc) Presbyopia Recommend Studio[employer]aps portable video magnifier for reading fine print, writing, 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 Recommend Lyst 10D LED lighted handheld magnifier and stand [...] face time was 60 minutes. Signature: Fernando Muniz OD Date: 04/08/2024 Time: 1:23 PM Dilation not repeated today, recently performed by referring doctor. Continue care as directed by referring doctor. documented in this encounter [facility] 03-28-2024 History of Present illness Narrative Encounter Diagnosis ICD-10-CM 1. Type 2 diabetes mellitus without retinopathy (HCC) E11.9 2. Homonymous hemianopsia, left H53.462 Educated pt No signs of ret Continue strict glucose control HH stable Having issues at work with bumping into things in her blind spot Discussed miya glasses for peripheral awareness Will refer to dr. Muniz in [place] for radhames Christina, SABINE March 28, 2024 10:47 AM documented in this encounter [facility] 03-03-2024 Telephone encounter Note Form scanned into pt chart per request of pt. Mychart sent notifying pt. Closing encounter. [facility] 03-03-2024 Miscellaneous Notes Form scanned into pt chart per request of pt. Mycrobinat sent notifying pt. Closing encounter. Form filled out/ signed. Please advise pt once it's sent. Remind her the glucose was high on the blood test. We need to see her back in the office to address the sugar Isabel Davenport MD documented in this encounter [facility] 02-29-2024 Telephone encounter Note Form filled out/ signed. Please advise pt once it's sent. Remind her the glucose was high on the blood test. We need to see her back in the office to address the sugar Isabel Davenport MD [facility] 02-28-2024 Telephone encounter Note Please review and advise [facility] 02-28-2024 Miscellaneous Notes Please review and advise documented in this encounter [facility] 02-27-2024 Note Formatting of this n ote might be different from the original. February 28, 2024 PID: [id number] Martha Venegas [address] [place] [address] Dear Ms. Venegas, We are pleased to [...] report will be kept on file at [facility] as part of your permanent medical record and are available for your continuing care. Thank you for allowing us to help in meeting your health care needs. Sincerely, Dr. Griffin Interpreting Radiologist [facility] (Normal over 40) [facility] 04-24-2024 Miscellaneous Notes February 28, 2024 PID: [id number] Martha Venegas [address] [place] [address] Dear Ms. Venegas, We are pleased to [...] report will be kept on file at [facility] as part of your permanent medical record and are available for your continuing care. Thank you for allowing us to help in meeting your health care needs. Sincerely, Dr. Griffin Interpreting Radiologist [facility] (Normal over 40) documented in this encounter [facility] 02-26-2024 History of Present illness Narrative Radiology [...] PATIENT PRESENTS WITH AN IMPLANTABLE OR ATTACHED WASHER CARCASS: No RADIOLOGY DEPARTMENT: Mammography PERIPHERAL IV DATA: Not applicable SIGNED BY: Lukasz Kirk February 26, 2024 2:55 PM documented in this encounter [facility] 01-08-2024 History of Present illness Narrative CHIEF [...] for Influenza Vaccine Due for Covid-19 Vaccine (- season) Due for Dilated Retinal Exam Due [...] (cerebrum) (HCC) TMJ arthritis PHYSICAL EXAMINATION BP 164/104 Pulse [...] January 08, 2024 4:41 PM Provider Attestation: Isabel Tsang MD, personally performed the services described in this documentation. All medical record entries made by the scribe were at my direction and in my presence. I have reviewed the chart and discharge instructions (if applicable), and agree that the record reflects my personal performance and is accurate and complete. Electronically Signed: Isabel Davenport MD January 10, 2024 1:46 PM documented in this encounter [facility] 01-08-2024 Miscellaneous Notes Spoke with Martha L Theo on January 08, 2024. Informed of results [...] Merari Camarillo MD documented in this encounter [facility] 01-06-2024 Miscellaneous Notes Patient calling to ask if she needs to fast for her lab tests scheduled for tomorrow. Lipid panel, CBC and BMP ordered. Advised it is an 8-10 hour fast, water as much as she likes and black coffee. Patient verbalized understanding/agreement to all information discussed. documented in this encounter [facility] 01-04-2024 History of Present illness Narrative Patient did not attend appointment. Isabel Davenport MD documented in this encounter [facility] 01-02-2024 Miscellaneous Notes 1st attempt,called pt to [...] medication. Vadim Lau APRN.SRAVANTHI Pharmacy verified in [facility] Patient has been identified by name and [...] Anastasia Ulloa LPN documented in this encounter [facility] 04-10-2023 Miscellaneous Notes Patient's request for medication is as follows: Requested Prescriptions Pending Prescriptions Disp Refills amLODIPine (NORVASC) 10 mg tablet [Pharmacy Med Name: AMLODIPINE BESYLATE 10 MG TAB] 90 tablet 3 Sig: take 1 tablet by mouth once daily Last seen 12/07/22 . Pt on recall list for 06/27. Prescription(s) as above. Please process accordingly. Meredith Justin LPN documented in this encounter [facility] 03-27-2023 Miscellaneous Notes Received 03/27/2023 from [facility]. Placed in provider's inbox for review. Route to [place] for scanning Right gluteal pain Zanaflex 4 mg Naproxen 500 mg documented in this encounter [facility] 03-06-2023 History of Present illness Narrative Episode [...] Patient to be seen for Therapeutic exercise (73354), Neuromuscular re-education (22749), Manual therapy (32200), Self-residential management (64032), Patient/Family/Caregiver Education PLAN FOR NEXT VISIT: Flexion [...] sec each 3: Hooklying PPT with alt march 2 x 10 (VC's for proper performance of PPT with the entire january) Skilled Intervention: Patient was educated in proper exercise technique and purpose for exercises. Correct performance of therapeutic exercises was facilitated with verbal and visual cuing. Billing Therapeutic Exercise Treatment Minutes: 45 Total Treatment Time Minutes (timed/untimed): 45 Johny Flores PT documented in this encounter [facility] 02-15-2023 Miscellaneous Notes Patient's request for medication is as follows: Requested Prescriptions Pending Prescriptions Disp Refills atorvastatin (LIPITOR) 40 mg tablet [Pharmacy Med Name: ATORVASTATIN 40 MG TABLET] 90 tablet 3 Sig: take 1 tablet by mouth once daily Last seen 12/25/2022. Prescription(s) as above. Please process accordingly. Cesia Flores LPN documented in this encounter [facility] 02-15-2023 History of Present illness Narrative Episode [...] Johny Flores PT documented in this encounter [facility] 02-06-2023 Miscellaneous Notes Patient would like mailed to her home. Letter placed in mail. Handicap placard printed in [employer]. It has to have an original signature on it, can't be sent electronlcally Will mail it Isabel Davenport MD Please advise. 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 It Security Consulting Director: STEFANIE Transcribe Date/Time: Feb 01 2023 12:01P Dictated [...] anxiety) This note was partially generated using [employer] voice recognition system, and there may be [...] measure: Exercise, Massage, Other: See comment Comments: Vumd-fkg-euuwnjx Pain Meds Patient states she is having lateral hip pain. Her pain is in her upper thigh and deep into her buttock as well. Works at [employer]. 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 Taking Tylenol for the pain like candy and does not help. She did have a Tramadol she found at home and did not help either. X-rays done today. documented in this encounter [facility] 01-05-2023 Miscellaneous Notes January 08, 2023 PID: [id number] Martha Venegas [address] [place] [address] Dear Ms. Venegas, We are pleased to [...] report will be kept on file at [facility] as part of your permanent medical record and are available for your continuing care. Thank you for allowing us to help in meeting your health care needs. Sincerely, Dr. Figueroa Interpreting Radiologist [facility] (Normal over 40) documented in this encounter [facility] 01-03-2023 Miscellaneous Notes Letter has been written sent through Pretty Daniels January 03, 2023 8:06 AM documented in this encounter [facility] 01-01-2023 Miscellaneous Notes Patient called because said see's many appointments and testing in her chart. Asked about Dr. Duffy apointment and why was scheduled. I said could be a referral and could transfer her to scheduling. She decided to call Dr. Camarillo office to speak with them. Bessie documented in this encounter [facility] 12-26-2022 Miscellaneous Notes Hi Ms. Venegas, We [...] is being achy her pain today is 04/14, and if she could please get a call back Pretty Daniels December 26, 2022 11:19 AM documented in this encounter [facility] 12-25-2022 History of Present illness Narrative HISTORY [...] town. 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 She was found to have hemianopsia and was taken to the ER for further evaluation. 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 She was admitted to [facility] for further evaluation. Of note, prior [...] last clinic visit, patient was referred to [facility] for PFO closure. She did undergo [...] once a month Diabetes mellitus ([facility]) Family history of sleep apnea History of [...] have confirmed and edited as necessary, the [facility] and [facility] PHYSICAL EXAMINATION: BP 146/100 Pulse 72 Resp [...] aneurysm noted with evidence of PFO with lvpo-tg-vhwid shunting by color Doppler and right to left shunting with agitated saline contrast. I have personally reviewed the Electrocardiogram and reports of prior echocardiograms as per above. I also [facility] ASSESSMENT: Ms. Venegas is a 52 year [...] which included preparing to see the patient, mgvb-hn-xrzo patient care, completing clinical documentation, obtaining and/or reviewing separately obtained history, performing a medically appropriate examination, and counseling and educating the patient/family/caregiver. Merari Camarillo MD documented in this encounter [facility] 12-25-2022 Nurse Note Patient has no cardiac complaints today. Mckenzie Flores CMA documented in this encounter [facility] 12-20-2022 Miscellaneous Notes Called patient: She states she is still sore on both groin sites since intervention. She states she is still having some bloody discharge more on the R>L. She states it is still red but slight yellow like, but since then has cleared up. She did mention she will be seeing her felting machine operator helper on Sunday. I did recommend she see someone locally (urgent care, PCP, felting machine operator helper) for a site check. Patient states right now it has cleared up so she will have the site checked on Sunday at her local felting machine operator helper. We discussed if symptoms worsen (chest pain, N/T in legs, bleeding from the site, discharge from the site, signs of infection) patient needs to be seen at her local urgent care or ED. \ Patient states she will let us know if she needs a return to work letter, but her felting machine operator helper might be able to do it. Patient verbalized understanding and agrees with plan of care. Paola Milian RN documented in this encounter [facility] [facility] 12-10-2022 Miscellaneous Notes CARDIOVASCULAR LAB INSTRUCTIONS: Readiness [...] Department of CARDIOLOGY. documented in this encounter [facility] 11-20-2022 History of Present illness Narrative Chief [...] started a new job Previously worked for [employer], now [employer]. Past medical history, appointments, medications, allergies reviewed. [...] Abs Lymph 1.00 - 4.00 k/uL 3.47 Emanuel% % 7.3 Abs Emanuel <0.87 k/uL 0.64 Eosin% % 2.2 Abs [...] November 20, 2022 11:40 AM Provider Attestation: Isabel Tsang MD, personally performed the services described in this documentation. All medical record entries made by the scribe were at my direction and in my presence. I have reviewed the chart and discharge instructions (if applicable) and agree that the record reflects my personal performance and is accurate and complete. Electronically Signed: Isabel Davenport MD November 20, 2022 4:19 PM documented in this encounter [facility] 11-15-2022 Miscellaneous Notes Patient's request for medication [...] Rosalinda Colorado LPN documented in this encounter [facility] 11-13-2022 Miscellaneous Notes 1st attempt. Left patient [...] and supplies to be sent to [facility] Reviewed. Patient has no preference. She said what ever insurance will pay for. documented in this encounter [facility] 10-24-2022 Miscellaneous Notes The following approved medication [...] Order(s) pended. Please advise. Carmelita Hardwick MA, FIELD ASSEMBLY SUPERVISOR documented in this encounter [facility] 10-23-2022 Miscellaneous Notes Received ED summary, labs, EKG, chest xray for dizziness from [facility]. Placed in provider's inbox for review. Route to JONO sánchez documented in this encounter [facility] 09-05-2022 Instructions Jaspreet Acuña APRN.CUT OFF SAW GRADER - 09/05/2022 6:31 PM EDT How to [...] concerning to you. documented in this encounter [facility] 09-05-2022 History of Present illness Narrative Subjective [...] Sinus: Maxillary sinus tenderness present. Mouth/Throat: Lips: [place]. Mouth: Mucous membranes are moist. Pharynx: Oropharynx [...] of care. This note was generated using [employer] software. It may contain errors in wording, punctuation, or spelling. Jaspreet Acuña APRN.SRAVANTHI documented in this encounter [facility] 07-21-2022 Nurse Note Patient denies any cardiac complaints or symptoms. documented in this encounter [facility] 07-21-2022 History of Present illness Narrative Chief Complaint: Patient presents with: Cardiology Follow Up : PFO closure radhames Venegas is a 52 year old female [...] 3. Atrial septum: Color Doppler shows a [id number]-[id number] shunt. There is evidence of right to [...] - Continue current medication. Parish Fernandez MD Carpet Journeyman of Internal Medicine [facility] Regional Section of Interventional Cardiology Grid Casting Machine Operator Helper of Structural Heart Disease [address], [address] [place] [address] Facsimile: [phone] Email: documented in this encounter [facility] 07-17-2022 Miscellaneous Notes Called and informed pt. Pt indicated understanding. I sent these to Arthur Lau APRN.CNP Please advise. Martha Venegas is calling Isabel Davenport MD today requesting orders for glucose meter and blood pressure monitor. Please fax to Arthur Kate Please contact patient once the orders have been sent documented in this encounter [facility] 07-12-2022 History of Present illness Narrative Encounter [...] control Updated glasses Follow up yearly Antonio Christina, SABINE July 12, 2022 11:51 AM documented in this encounter [facility] 06-14-2022 History of Present illness Narrative HISTORY [...] town. 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 She was found to have hemianopsia and was taken to the ER for further evaluation. 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 She was admitted to [facility] for further evaluation. Of note, prior [...] have confirmed and edited as necessary, the PFSH and [facility] PHYSICAL EXAMINATION: BP 134/84 Pulse 73 Resp [...] aneurysm noted with evidence of PFO with rcqj-fv-afwwd shunting by color Doppler and right to left shunting with agitated saline contrast. I have personally reviewed the Electrocardiogram and reports of prior echocardiograms as per above. I also reviewed records of patient's hospitalization at [facility] in 01/21 in [facility]. ASSESSMENT: Ms. Venegas is a 51 year [...] her prior TTE and LB performed at [facility]. I reviewed that PFO is a [...] decision making from today (June 14, 2022). Merari Camarillo MD documented in this encounter [facility] 06-14-2022 Instructions Merari Camarillo MD - 06/14/2022 11:12 AM EDT LIFESTYLE CHANGE A healthy lifestyle is the most important component of your overall treatment plan. Please give serious thought to the following areas and commit to making custodial changes. EAT A WHOLE FOOD, PLANT BASED [...] in your area. documented in this encounter [facility] 06-14-2022 Nurse Note Patient has no cardiac complaints today. Mckenzie Flores CMA documented in this encounter [facility] 03-15-2022 Miscellaneous Notes Cardiac clearance form received and placed in Sosa's door box. Rosalinda Colorado LPN Left voicemail with surgery coordinator at [facility] to call back so we can get another form sent. Rosalinda Colorado LPN Pt Was seen yesterday In Office. Preop Cardiac eval Orthopedic surgery Thru [facility] notes say That clearance form Placed in Dr Shepard mail Box. I reviewed Records and do Not see the form. Nothing scanned into [facility] either Please call [facility] and obtain Clearance form Thanks Jennie Sosa APRN.CUT OFF SAW GRADER documented in this encounter [facility] 03-14-2022 History of Present illness Narrative Chief Complaint: Patient presents with: Cardiac Clearance: ortho surgery History of Present Illness: Martha Venegas is a 51 year old female with history of hypertension, hyperlipidemia, diabetes, obesity remote CVA in January 2019. To provide brief history patient reported that in January 2019 she had facial symptoms as well as confusion double vision and blurry vision. At [facility] She had an MRI/MRA of the brain revealing scattered areas of acute infarct in the right occipital lobe with an acute right NUTRITION INTERNSHIP. She was admitted to [facility]. She did have LB as well [...] that is yet to be scheduled With [facility] She denies any complaints of chest pain, [...] hyperlipidemia PFO (patent foramen ovale) Stroke (cerebrum) ([facility]) TMJ arthritis PAST SURGICAL HISTORY Procedure Laterality [...] aneurysm noted with evidence of PFO with [id number]-[id number] shunting by color Doppler and right to [...] Dr. Camarillo. 30 documented in this encounter [facility] 03-14-2022 Nurse Note Patient has no cardiac complaints today. Mckenzie Flores CMA documented in this encounter [facility] 03-01-2022 Miscellaneous Notes Clearance form received from [facility]. Form placed in Dr. Camarillo's door box. Rosalinda Colorado LPN documented in this encounter [facility] 02-18-2022 Instructions Danette Lopez APRN.CUT OFF SAW GRADER - 02/18/2022 2:00 PM EDT Patient instructed to: * Use cold compresses, 20 minutes 4-6 times per day * Use [place] Solution and Aveeno products as needed. * Wash all clothes. * Return to primary care provider if no relief in 3-4 days. documented in this encounter [facility] 02-18-2022 History of Present illness Narrative This note was created using [employer]. Subjective Martha Venegas is a 51 year [...] MRI. States last weekend she was in [place] and had bed bug bites to her [...] Hypertension PFO (patent foramen ovale) Stroke (cerebrum) (HCC) [...] to follow up with ortho. Danette Lopez APRN.CNP documented in this encounter [facility] 01-23-2020 History of Past i llness Narrative Problem Noted Date Resolved Date PFO (patent foramen ovale) 01/23/202012/25 TIA (transient ischemic attack) 01/16/2019 03/10/2019 documented as of this encounter (statuses as of 12/25/2022) [facility] History of Past illness Narrative* Problem Noted Date Resolved Date PFO (patent foramen ovale) 01/23/202012/25 TIA (transient ischemic attack) 01/16/2019 03/10/2019 documented as of this encounter (statuses as of 12/28/2022) [facility] History of Past illness Narrative* Problem Noted Date Resolved Date PFO (patent foramen ovale) 01/23/202012/25 TIA (transient ischemic attack) 01/16/2019 03/10/2019 documented as of this encounter (statuses as of 12/29/2022) [address]20-2020 History of Past illness Narrative* Problem Noted Date Resolved Date PFO (patent foramen ovale) 01/23/202012/25 TIA (transient ischemic attack) 01/16/2019 03/10/2019 documented as of this encounter (statuses as of 01/01/2023) [address]20-2020 History of Past illness Narrative* Problem Noted Date Resolved Date PFO (patent foramen ovale) 01/23/202012/25 TIA (transient ischemic attack) 01/16/2019 03/10/2019 documented as of this encounter (statuses as of 01/03/2023) [address]20-2020 History of Past illness Narrative* Problem Noted Date Resolved Date PFO (patent foramen ovale) 01/23/202012/25 TIA (transient ischemic attack) 01/16/2019 03/10/2019 documented as of this encounter (statuses as of 01/09/2023) [address]20-2020 History of Past illness Narrative* Problem Noted Date Resolved Date PFO (patent foramen ovale) 01/23/202012/25 TIA (transient ischemic attack) 01/16/2019 03/10/2019 documented as of this encounter (statuses as of 01/29/2023) [address]20-2020 History of Past illness Narrative* Problem Noted Date Resolved Date PFO (patent foramen ovale) 01/23/202012/25 TIA (transient ischemic attack) 01/16/2019 03/10/2019 documented as of this encounter (statuses as of 01/29/2023) [address]20-2020 History of Past illness Narrative* Problem Noted Date Resolved Date PFO (patent foramen ovale) 01/23/202012/25 TIA (transient ischemic attack) 01/16/2019 03/10/2019 documented as of this encounter (statuses as of 01/31/2023) [address]20-2020 History of Past illness Narrative* Problem Noted Date Resolved Date PFO (patent foramen ovale) 01/23/202012/25 TIA (transient ischemic attack) 01/16/2019 03/10/2019 documented as of this encounter (statuses as of 02/01/2023) [address]20-2020 History of Past illness Narrative* Problem Noted Date Resolved Date PFO (patent foramen ovale) 01/23/202012/25 TIA (transient ischemic attack) 01/16/2019 03/10/2019 documented as of this encounter (statuses as of 02/06/2023) [address]20-2020 History of Past illness Narrative* Problem Noted Date Resolved Date PFO (patent foramen ovale) 01/23/202012/25 TIA (transient ischemic attack) 01/16/2019 03/10/2019 documented as of this encounter (statuses as of 02/16/2023) [address]20-2020 History of Past illness Narrative* Problem Noted Date Resolved Date PFO (patent foramen ovale) 01/23/202012/25 TIA (transient ischemic attack) 01/16/2019 03/10/2019 documented as of this encounter (statuses as of 02/16/2023) [address]20-2020 History of Past illness Narrative* Problem Noted Date Resolved Date PFO (patent foramen ovale) 01/23/202012/25 TIA (transient ischemic attack) 01/16/2019 03/10/2019 documented as of this encounter (statuses as of 02/19/2023) [address]20-2020 History of Past illness Narrative* Problem Noted Date Resolved Date PFO (patent foramen ovale) 01/23/202012/25 TIA (transient ischemic attack) 01/16/2019 03/10/2019 documented as of this encounter (statuses as of 03/06/2023) [address]20-2020 History of Past illness Narrative* Problem Noted Date Resolved Date PFO (patent foramen ovale) 01/23/202012/25 TIA (transient ischemic attack) 01/16/2019 03/10/2019 documented as of this encounter (statuses as of 03/27/2023) [address]20-2020 History of Past illness Narrative* Problem Noted Date Resolved Date PFO (patent foramen ovale) 01/23/202012/25 TIA (transient ischemic attack) 01/16/2019 03/10/2019 documented as of this encounter (statuses as of 04/10/2023) [address]20-2020 History of Past illness Narrative* Problem Noted Date Diagnosed Date Resolved Date PFO (patent foramen ovale) 01/23/2020 0 12/25/2022 TIA (transient ischemic attack) 01/16/2019 03/10/2019 documented as of this encounter (statuses as of 01/02/2024) [address]20-2020 History of Past illness Narrative* Problem Noted Date Diagnosed Date Resolved Date PFO (patent foramen ovale) 01/23/2020 0 12/25/2022 TIA (transient ischemic attack) 01/16/2019 03/10/2019 documented as of this encounter (statuses as of 01/04/2024) [address] History of Past illness Narrative* Problem Noted Date Diagnosed Date Resolved Date PFO (patent foramen ovale) 01/23/2020 0 12/25/2022 TIA (transient ischemic attack) 01/16/2019 03/10/2019 documented as of this encounter (statuses as of 01/06/2024) [address]20-2020 History of Past illness Narrative* Problem Noted Date Diagnosed Date Resolved Date PFO (patent foramen ovale) 01/23/2020 0 12/25/2022 TIA (transient ischemic attack) 01/16/2019 03/10/2019 documented as of this encounter (statuses as of 01/10/2024) [address]20-2020 History of Past illness Narrative* Problem Noted Date Diagnosed Date Resolved Date PFO (patent foramen ovale) 01/23/2020 0 12/25/2022 TIA (transient ischemic attack) 01/16/2019 03/10/2019 documented as of this encounter (statuses as of 01/10/2024) [address]14-2019 History of Past illness Narrative* Problem Noted Date Resolved Date TIA (transient ischemic attack) 01/16/2019 03/10/2019 documented as of this encounter (statuses as of 02/18/2022) [address]14-2019 History of Past illness Narrative* Problem Noted Date Resolved Date TIA (transient ischemic attack) 01/16/2019 03/10/2019 documented as of this encounter (statuses as of 03/01/2022) [address]14-2019 History of Past illness Narrative* Problem Noted Date Resolved Date TIA (transient ischemic attack) 01/16/2019 03/10/2019 documented as of this encounter (statuses as of 03/03/2022) [address]14-2019 History of Past illness Narrative* Problem Noted Date Resolved Date TIA (transient ischemic attack) 01/16/2019 03/10/2019 documented as of this encounter (statuses as of 03/14/2022) [address]14-2019 History of Past illness Narrative* Problem Noted Date Resolved Date TIA (transient ischemic attack) 01/16/2019 03/10/2019 documented as of this encounter (statuses as of 03/16/2022) [address]14-2019 History of Past illness Narrative* Problem Noted Date Resolved Date TIA (transient ischemic attack) 01/16/2019 03/10/2019 documented as of this encounter (statuses as of 04/04/2022) [address]14-2019 History of Past illness Narrative* Problem Noted Date Resolved Date TIA (transient ischemic attack) 01/16/2019 03/10/2019 documented as of this encounter (statuses as of 05/08/2022) [address]14-2019 History of Past illness Narrative* Problem Noted Date Resolved Date TIA (transient ischemic attack) 01/16/2019 03/10/2019 documented as of this encounter (statuses as of 06/14/2022) [address]14-2019 History of Past illness Narrative* Problem Noted Date Resolved Date TIA (transient ischemic attack) 01/16/2019 03/10/2019 documented as of this encounter (statuses as of 06/16/2022) [address]14-2019 History of Past illness Narrative* Problem Noted Date Resolved Date TIA (transient ischemic attack) 01/16/2019 03/10/2019 documented as of this encounter (statuses as of 07/03/2022) [address]14-2019 History of Past illness Narrative* Problem Noted Date Resolved Date TIA (transient ischemic attack) 01/16/2019 03/10/2019 documented as of this encounter (statuses as of 07/12/2022) [address]14-2019 History of Past illness Narrative* Problem Noted Date Resolved Date TIA (transient ischemic attack) 01/16/2019 03/10/2019 documented as of this encounter (statuses as of 07/17/2022) [address]14-2019 History of Past illness Narrative* Problem Noted Date Resolved Date TIA (transient ischemic attack) 01/16/2019 03/10/2019 documented as of this encounter (statuses as of 07/21/2022) [address]14-2019 History of Past illness Narrative* Problem Noted Date Resolved Date TIA (transient ischemic attack) 01/16/2019 03/10/2019 documented as of this encounter (statuses as of 08/03/2022) [address]14-2019 History of Past illness Narrative* Problem Noted Date Resolved Date TIA (transient ischemic attack) 01/16/2019 03/10/2019 documented as of this encounter (statuses as of 08/12/2022) [address]14[address]2019 History of Past illness Narrative* Problem Noted Date Resolved Date TIA (transient ischemic attack) 01/16/2019 03/10/2019 documented as of this encounter (statuses as of 08/29/2022) [address]14-2019 History of Past illness Narrative* Problem Noted Date Resolved Date TIA (transient ischemic attack) 01/16/2019 03/10/2019 documented as of this encounter (statuses as of 09/06/2022) [address]14-2019 History of Past illness Narrative* Problem Noted Date Resolved Date TIA (transient ischemic attack) 01/16/2019 03/10/2019 documented as of this encounter (statuses as of 09/09/2022) [address]14[address]2019 History of Past illness Narrative* Problem Noted Date Resolved Date TIA (transient ischemic attack) 01/16/2019 03/10/2019 documented as of this encounter (statuses as of 09/29/2022) [address]14[address]2019 History of Past illness Narrative* Problem Noted Date Resolved Date TIA (transient ischemic attack) 01/16/2019 03/10/2019 documented as of this encounter (statuses as of 10/23/2022) [address]14[address]2019 History of Past illness Narrative* Problem Noted Date Resolved Date TIA (transient ischemic attack) 01/16/2019 03/10/2019 documented as of this encounter (statuses as of 10/24/2022) [address]14[address]2019 History of Past illness Narrative* Problem Noted Date Resolved Date TIA (transient ischemic attack) 01/16/2019 03/10/2019 documented as of this encounter (statuses as of 11/05/2022) [address]14[address]2019 History of Past illness Narrative* Problem Noted Date Resolved Date TIA (transient ischemic attack) 01/16/2019 03/10/2019 documented as of this encounter (statuses as of 11/13/2022) [address]14[address]2019 History of Past illness Narrative* Problem Noted Date Resolved Date TIA (transient ischemic attack) 01/16/2019 03/10/2019 documented as of this encounter (statuses as of 11/15/2022) [address]14[address]2019 History of Past illness Narrative* Problem Noted Date Resolved Date TIA (transient ischemic attack) 01/16/2019 03/10/2019 documented as of this encounter (statuses as of 11/19/2022) [address]14[address]2019 History of Past illness Narrative* Problem Noted Date Resolved Date TIA (transient ischemic attack) 01/16/2019 03/10/2019 documented as of this encounter (statuses as of 11/20/2022) [address]14[address]2019 History of Past illness Narrative* Problem Noted Date Resolved Date TIA (transient ischemic attack) 01/16/2019 03/10/2019 documented as of this encounter (statuses as of 11/28/2022) [address]14[address]2019 History of Past illness Narrative* Problem Noted Date Resolved Date TIA (transient ischemic attack) 01/16/2019 03/10/2019 documented as of this encounter (statuses as of 12/10/2022) [address]14[address]2019 History of Past illness Narrative* Problem Noted Date Resolved Date TIA (transient ischemic attack) 01/16/2019 03/10/2019 documented as of this encounter (statuses as of 12/15/2022) [address]14[address]2019 History of Past illness Narrative* Problem Noted Date Resolved Date TIA (transient ischemic attack) 01/16/2019 03/10/2019 documented as of this encounter (statuses as of 12/22/2022) [facility] [place] [facility] Diagnosis Dermatitis- Primary Contact dermatitis and other eczema, due to unspecified cause Chronic right shoulder pain Pain in joint, shoulder region [facility] Diagnosis Cryptogenic stroke (HCC) Unspecified cerebral artery occlusion with cerebral infarction [facility] [place] [facility] Diagnosis Pre-operative cardiovascular examination- Primary Essential hypertension Unspecified essential hypertension Mixed hyperlipidemia PFO (patent foramen ovale) Ostium secundum type atrial septal defect Cerebrovascular accident (CVA), unspecified mechanism (HCC) [facility] [place] [facility] Diagnosis Cryptogenic stroke (HCC) Unspecified cerebral artery occlusion with cerebral infarction [facility] [place] [facility] Diagnosis Encounter for screening mammogram for breast cancer [facility] [place] [facility] Diagnosis History of stroke- Primary Transient ischemic attack (TIA), and cerebral infarction without residual deficits Essential hypertension Unspecified essential hypertension PFO (patent foramen ovale) Ostium secundum type atrial septal defect Mixed hyperlipidemia [facility] [place] [facility] Diagnosis Diabetes mellitus (HCC) Type II or unspecified type diabetes mellitus without mention of complication, not stated as uncontrolled Acquired hypothyroidism Unspecified hypothyroidism [facility] [place] [facility] Diagnosis Cryptogenic stroke (HCC)- Primary Unspecified cerebral artery occlusion with cerebral infarction [facility] [place] [facility] Diagnosis Homonymous hemianopsia, left- Primary Occipital stroke (HCC) Unspecified cerebral artery occlusion with cerebral infarction Type 2 diabetes mellitus without retinopathy (HCC) Type II or unspecified type diabetes mellitus without mention of complication, not stated as uncontrolled Presbyopia [facility] [place] [facility] Diagnosis Essential hypertension- Primary Unspecified essential hypertension Type 2 diabetes mellitus without complication, without long-term current use of insulin (HCC) [facility] [place] [facility] Diagnosis PFO (patent foramen ovale)- Primary Ostium secundum type atrial septal defect Primary hypertension Unspecified essential hypertension Mixed hyperlipidemia 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, unspecified blood vessel laterality (HCC) [facility] [place] [facility] Diagnosis Primary hypertension- Primary Unspecified essential hypertension [facility] Diagnosis Cryptogenic stroke (HCC)- Primary Unspecified cerebral artery occlusion with cerebral infarction [facility] [place] [facility] Diagnosis Suspected COVID-19 virus infection- Primary Acute maxillary sinusitis, recurrence not specified [facility] [place] [facility]* Diagnosis Cryptogenic stroke (HCC)- Primary Unspecified cerebral artery occlusion with cerebral infarction [facility]No assessment information availableWMet[facility] Work Phone: Evaluation note* Diagnosis Type 2 diabetes mellitus without complication, without long-term current use of insulin (HCC) documented in this encounter [facility] note* Diagnosis Cryptogenic stroke (HCC)- Primary Unspecified cerebral artery occlusion with cerebral infarction documented in this encounter [facility] note* Diagnosis PFO (patent foramen ovale)- Primary Ostium secundum type atrial septal defect Primary hypertension Unspecified essential hypertension Hypertension, unspecified type PFO (patent foramen ovale) Ostium secundum type atrial septal defect documented in this encounter [facility] note* Diagnosis Essential hypertension- Primary Unspecified essential [...] atrial septal defect documented in this encounter [facility] note* Diagnosis Cryptogenic stroke (HCC)- Primary Unspecified cerebral artery occlusion with cerebral infarction PFO (patent foramen ovale) Ostium secundum type atrial septal defect [facility] [place] [facility] Diagnosis Primary hypertension- Primary Unspecified essential hypertension Mixed hyperlipidemia Recurrent cerebrovascular accidents (CVAs) (HCC) documented in this encounter [facility] note* Diagnosis Cryptogenic stroke (HCC)- Primary Unspecified cerebral artery occlusion with cerebral infarction [facility] [place] [facility]* Diagnosis Pain in right hip- Primary Pain in joint, pelvic region and thigh [facility] this [facility] [place] [facility]* Diagnosis Primary osteoarthritis of right hip- Primary Primary localized osteoarthrosis, pelvic region and thigh Sacroiliitis (HCC) Sacroiliitis, not elsewhere classified Leg length discrepancy Unequal leg length (acquired) documented in this encounter [facility] note* Diagnosis Leg length discrepancy- Primary Unequal leg length (acquired) [facility] [place] [facility]* Diagnosis PFO (patent foramen ovale)- Primary Ostium secundum type atrial septal defect [facility] [place] [facility]* Diagnosis Leg length discrepancy- Primary Unequal leg length (acquired) [facility] [place] [facility]* Diagnosis Essential hypertension Unspecified essential hypertension [facility] [place] [facility]* Diagnosis NO SHOW- Primary [facility] [place] [facility]* Diagnosis Cerebrovascular accident (CVA) due to [...] specified viral diseases [facility] [place] [facility]* Diagnosis Encounter for screening mammogram for breast cancer [facility] [place] [facility]* Diagnosis Type 2 diabetes mellitus without retinopathy (HCC)- Primary Type II or unspecified type diabetes mellitus without mention of complication, not stated as uncontrolled Homonymous hemianopsia, left [facility] [place] [facility]* Diagnosis Low vision right eye category 1, low vision left eye category 1- Primary Homonymous hemianopsia, left Occipital stroke (HCC) Unspecified cerebral artery occlusion with cerebral infarction Presbyopia [facility] [place] [facility]* Diagnosis Essential hypertension Unspecified essential hypertension 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, unspecified blood vessel laterality (HCC) documented [facility] [place] [facility]* Diagnosis Type 2 diabetes mellitus without complication, without long-term current use of insulin (HCC) Essential hypertension Unspecified essential hypertension [facility] [place] [facility]* Diagnosis History of CVA (cerebrovascular accident)- Primary Transient ischemic attack (TIA), and cerebral infarction without residual deficits Primary hypertension Unspecified essential hypertension Mixed hyperlipidemia [facility] Diagnosis Essential hypertension Unspecified essential hypertension documented in this encounter [facility] note* Diagnosis Essential hypertension Unspecified essential hypertension documented in this encounter [facility] note* Diagnosis Acute cough- Primary URI, acute Acute upper respiratory infections of unspecified site Acute cough documented in this encounter [facility] note* Diagnosis Acute cough documented in this encounter [facility] note* Diagnosis Type 2 diabetes mellitus without complication, without long-term current use of insulin (HCC)- Primary Mixed hyperlipidemia documented in this encounter [facility] note* Diagnosis Diabetes mellitus (HCC) Type II or unspecified type diabetes mellitus without mention of complication, not stated as uncontrolled documented in this encounter [facility] note* Diagnosis Type 2 diabetes mellitus [...] malignant neoplasms, colon documented in this encounter [facility] note* Diagnosis Chronic idiopathic urticaria- Primary Idiopathic urticaria Angioedema, initial encounter Adverse food reaction, initial encounter documented in this encounter [facility] note* Diagnosis Essential hypertension Unspecified essential hypertension documented in this encounter [facility] note* Diagnosis 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, unspecified blood vessel laterality (HCC) documented in this encounter [facility] note* Diagnosis PFO (patent foramen ovale) (HCC)- Primary Ostium secundum type atrial septal defect Essential (primary) hypertension Unspecified essential hypertension Mixed hyperlipidemia documented in this encounter [facility] note* Diagnosis History of loop recorder- Primary documented in this encounter [facility] note* Diagnosis Positive fecal occult blood test Nonspecific abnormal finding in stool contents documented in this encounter [facility] note* Diagnosis Chronic idiopathic urticaria- Primary Idiopathic urticaria Angioedema, subsequent encounter Cracked lips Diseases of lips Adverse reaction to food, subsequent encounter documented in this encounter [facility] for referral (narrative)* Diagnostic Procedure Only (Routine) - Pending Review Specialty Diagnoses / Procedures Referred By Contac t Referred To Contact [facility] Diagnoses Encounter for screening mammogram for breast cancer Procedures THAD SCREENING W CAMILLA SCREENING DIGITAL BREAST TOMOSYNTHESIS BI SCREENING MAMMOGRAPHY BI 2-VIEW BREAST INC CAD Carl, Isabel Stoner MD [address] [facility] [address] [facility] [address] [place] [address] Referral ID Status Reason Start Date Expiration Date Visits Requested Visits Authorized [id number] Pending Review Auto-Generat ed Referral 05/03/2022 06/02/2023 1 1 [facility] for referral (narrative)* Outpatient Procedure (Routine) - Pending Review Specialty Diagnoses / Procedures Referred By Tushar t Referred To Contact [facility] [place] Diagnoses Primary hypertension Procedures ECHO ECHO TTHRC R-T 2D W/WOM-MODE COMPL SPEC&[place] [address] [place] [address] [address] Referral ID Status Reason Start Date Expiration Date Visits Requested Visits Authorized [id number] Pending Review Auto-Generat ed Referral 08/02/2022 08/02/2023 1 1 * Outpatient Procedure (Routine) - Authorized Specialty Diagnoses / Procedures Referred By Contac t Referred To Contact [facility] Diagnoses Primary hypertension Procedures ECG COMPLETE ECG ROUTINE ECG W/LEAST 12 LDS W/I&R Fifi Calderón MD [address] [place] [address] [address] Referral ID Status Reason Start Date Expiration Date Visits Requested Visits Authorized [id number] Authorized Auto-Generat ed Referral 08/02/2022 08/02/2023 1 1 [facility] for referral (narrative)* Outpatient Procedure (Routine) - Pending Review Specialty Diagnoses / Procedures Referred By Contac t Referred To Contact [facility] [place] Diagnoses PFO (patent foramen ovale) Primary hypertension Hypertension, unspecified type Procedures ECHO ECHO TTHRC R-T 2D W/WOM-MODE COMPL SPEC&COLR D Fifi Calderón MD [id number] [place] [address] Referral ID Status Reason Start Date Expiration Date Visits Requested Visits Authorized [id number] Pending Review Auto-Generat ed Referral 11/19/2022 11/19/2023 1 1 * Outpatient Procedure (Routine) - Authorized Specialty Diagnoses / Procedures Referred By Contac t Referred To Contact [facility] [place] Diagnoses PFO (patent foramen ovale) Primary hypertension Hypertension, unspecified type Procedures ECG COMPLETE ECG ROUTINE ECG W/LEAST 12 LDS W/I&R Fifi Calderón MD [address] [place] [address] [place] [address] Referral ID Status Reason Start Date Expiration Date Visits Requested Visits Authorized [id number] Authorized Auto-Generat ed Referral 11/19/2022 11/19/2023 1 1 [facility] for referral (narrative)* Diagnostic Procedure Only (Routine) - Closed Specialty Diagnoses / Procedures Referred By Contac t Referred To Contact [facility] Diagnoses Pain in right hip Procedures XR HIP GENERAL 3V PELV/AP/LAT RIGHT RADEX HIP UNILATERAL WITH PELVIS 2-3 VIEWS Brianda Decker PA-C [address] [place] [address] Xr Imaging Referral ID Status Reason Start Date Expiration Date V isits Requested Visits Authorized [id number] Closed Auto-Generate d Referral 01/29/2023 02/28/2024 1 1 [facility] for referral (narrative)* Diagnostic Procedure Only (Routine) - Pending Review Specialty Diagnoses / Procedures Referred By Contac t Referred To Contact [facility] Diagnoses Encounter for screening mammogram for breast cancer Procedures THAD SCREENING SCREENING MAMMOGRAPHY BI 2-VIEW BREAST INC CAD Isabel Davenport MD [address] [facility] [place] [address] [facility] [address] [place] [address] Referral ID Status Reason Start Date Expiration Date Visits Requested Visits Authorized [id number] Pending Review Auto-Generat ed Referral 01/08/2024 02/06/2025 1 1 [facility] for referral (narrative)No reason for referral information availableWMetroHealth [facility] Work Phone: [facility] Narrative* Diagnostic Procedure Only (Routine) - Closed Specialty Diagnoses / Procedures Referred By Contselin t Referred To Contact [facility] Diagnoses Encounter for screening mammogram for breast cancer Procedures THAD SCREENING SCREENING MAMMOGRAPHY BI 2-VIEW BREAST INC CAD Isabel Davenport MD [address] [facility] [place] [address] [facility] [address] [place] [address] Referral ID Status Reason Start Date Expiration Date V isits Requested Visits Authorized [id number] Closed Auto-Generate d Referral 01/08/2024 02/06/2025 1 1 [facility] for visit Narrative* Outpatient Procedure (Routine) - Closed Specialty Diagnoses / Procedures Referred By Contselin t Referred To Contact [facility] Diagnoses Positive fecal occult blood test Procedures COLONOSCOPY DIAGNOSTIC COLONOSCOPY FLX DX W/COLLJ SPEC WHEN PFRMD Vadim Teixeira, DALIA.CUT OFF SAW GRADER [address] [facility] [place] [address] Phone: tel: fax: [facility] [address] [place] [address] Referral ID Status Reason Start Date Expiration Date V isits Requested Visits Authorized [id number] Closed Auto-Generate d Referral 02/23/2025 11/04/2025 1 1 [facility] Summary Purpose Family History No Family History Records FoundNo Family History Records FoundNo Family History Records FoundNo Family History Records FoundNo Family History Records FoundNo Family History Records FoundNo Family History Records Found Advance Directives No Advanced Directives Records FoundDocuments on File Type Date Recorded 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 Advance Directive(s) 08/15/2019 8:36 AM Advance Directive(s) 01/16/2019 6:26 PM Documents on File Type Date Recorded 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 Advance Directive(s) 08/15/2019 8:36 AM Advance Directive(s) 01/16/2019 6:26 PM Advance Directive Response Recorded Date/ Time Living Will No October 22 8:53pm Power of Systems Mechanic No October 22, 2022 8:53pm Reason for Referral Specialty Diagnoses / Procedures Referred By Contac t Referred To Contact Cardiology Diagnoses PFO (patent foramen ovale) Procedures CONSULT TO CARDIOLOGY OFFICE/OUTPATIENT [facility] [place] 60-74 MINUTES Merari Camarillo MD [address], [facility] [address] [place] [address] Referral ID Status Reason Start Date Expiration Date Visits Requested Visits Authorized [id number] Authorized PCP Requested Referral 06/14/2022 06/14/2023 1 1 Specialty Diagnoses / Procedures Referred By Contac t Referred To Contact [facility] Diagnoses Leg length discrepancy Procedures CONSULT TO PHYSICAL THERAPY PHYSICAL THERAPY EVALUATION HIGH COMPLEX 45 MINS Isabel Davenport MD [address] [facility] [place] [address] [facility] [place] [address] [place] [address] Referral ID Status Reason Start Date Expiration Date Visits Requested Visits Authorized [id number] Pending Review Auto-Generat ed Referral 11/20/2022 11/20/2023 1 1 Specialty Diagnoses / Procedures Referred By Contac t Referred To Contact Hematology Diagnoses Recurrent cerebrovascular accidents (CVAs) (HCC) Procedures CONSULT TO HEMATOLOGY OFFICE/OUTPATIENT [facility] [place] 60-74 MINUTES Merari Camarillo MD [address], [facility] [address] [place] [address] Referral ID Status Reason Start Date Expiration Date Visits Requested Visits Authorized [id number] Authorized PCP Requested Referral 12/25/2022 12/25/2023 1 1 Specialty Diagnoses / Procedures Referred By Contac t Referred To Contact [facility] Diagnoses Leg length discrepancy Procedures PT REHAB FOLLOW UP ORDER THERAPEUTIC EXERCISES RE, EA 15 MIN. Johny Flores, PT [address] [place] [address] [facility] [place] [address] [place] [address] Referral ID Status Reason Start Date Expiration Date Visits Requested Visits Authorized [id number] Pending Review PCP Requested Referral Auto-Generate d Referral 03/06/2023 06/04/2023 1 1 Health Concerns Infection Onset Date Last Indicated Resolved Time COVID-19 Rule-Out 09/05/2022 09/05/2022 09/06/2022 5:21 AM EDT Chief Complaint and Reason for Visit Chief Complaint DIZZINESS Chief Complaint Admit Date J32.8 chronic sinusitis April 08, 2025 7 :26am Chief Complaint Admit Date J32.8 chronic sinusitis April 08, 2025 7 :26am PRE OP. SURGERY 05/19/25 April 20, 2025 7:40am Additional Source Comments INFORMATION SOURCE (unrecogn ized section and content) DATE CREATED AUTHOR 01/19/[address] [facility] DATE CREATED AUTHOR AUTHOR'S ORGANIZ ATION 02/03/2019 [facility] DATE CREATED AUTHOR AUTHOR'S ORGANIZ ATION 03/07/2019 [facility] DATE CREATED AUTHOR AUTHOR'S ORGANIZ ATION 09/13/2022 [facility] DATE CREATED AUTHOR AUTHOR'S ORGANIZ ATION 04/11/2025 [facility] DATE CREATED AUTHOR AUTHOR'S ORGANIZ ATION 04/21/2025 [facility] DATE CREATED AUTHOR AUTHOR'S ORGANIZ ATION 04/23/2025 [facility] Source Comments (unrecognize d section and content) In the event this informatio n is protected by the Federal Confidentiality of Alcohol and Drug Abuse Patient Records regulations: The Federal rules restrict any use of the information to criminally investigate or prosecute any alcohol or drug abuse patient.[facility]In the event this information is protected by the Federal Confidentiality of Alcohol and Drug Abuse Patient Records regulations: The Federal rules restrict any use of the information to criminally investigate or prosecute any alcohol or drug abuse patient.[facility] MemorialIn the event this information is protected by the Federal Confidentiality of Alcohol and Drug Abuse Patient Records regulations: The Federal rules restrict any use of the information to criminally investigate or prosecute any alcohol or drug abuse patient.[facility]In the event this information is protected by the Federal Confidentiality of Alcohol and Drug Abuse Patient Records regulations: The Federal rules restrict any use of the information to criminally investigate or prosecute any alcohol or drug abuse patient.[facility] MemorialIn the event this information is protected by the Federal Confidentiality of Alcohol and Drug Abuse Patient Records regulations: The Federal rules restrict any use of the information to criminally investigate or prosecute any alcohol or drug abuse patient.[facility] MemorialIn the event this information is protected by the Federal Confidentiality of Alcohol and Drug Abuse Patient Records regulations: The Federal rules restrict any use of the information to criminally investigate or prosecute any alcohol or drug abuse patient.[facility] MemorialIn the event this information is protected by the Federal Confidentiality of Alcohol and Drug Abuse Patient Records regulations: The Federal rules restrict any use of the information to criminally investigate or prosecute any alcohol or drug abuse patient.[facility] the event this information is protected by the Federal Confidentiality of Alcohol and Drug Abuse Patient Records regulations: The Federal rules restrict any use of the information to criminally investigate or prosecute any alcohol or drug abuse patient.[facility] MemorialIn the event this information is protected by the Federal Confidentiality of Alcohol and Drug Abuse Patient Records regulations: The Federal rules restrict any use of the information to criminally investigate or prosecute any alcohol or drug abuse patient.[facility] MemorialIn the event this information is protected by the Federal Confidentiality of Alcohol and Drug Abuse Patient Records regulations: The Federal rules restrict any use of the information to criminally investigate or prosecute any alcohol or drug abuse patient.[facility] MemorialIn the event this information is protected by the Federal Confidentiality of Alcohol and Drug Abuse Patient Records regulations: The Federal rules restrict any use of the information to criminally investigate or prosecute any alcohol or drug abuse patient.[facility] MemorialIn the event this information is protected by the Federal Confidentiality of Alcohol and Drug Abuse Patient Records regulations: The Federal rules restrict any use of the information to criminally investigate or prosecute any alcohol or drug abuse patient.[facility] MemorialIn the event this information is protected by the Federal Confidentiality of Alcohol and Drug Abuse Patient Records regulations: The Federal rules restrict any use of the information to criminally investigate or prosecute any alcohol or drug abuse patient.[facility] MemorialIn the event this information is protected by the Federal Confidentiality of Alcohol and Drug Abuse Patient Records regulations: The Federal rules restrict any use of the information to criminally investigate or prosecute any alcohol or drug abuse patient.[facility] MemorialIn the event this information is protected by the Federal Confidentiality of Alcohol and Drug Abuse Patient Records regulations: The Federal rules restrict any use of the information to criminally investigate or prosecute any alcohol or drug abuse patient.[facility] MemorialIn the event this information is protected by the Federal Confidentiality of Alcohol and Drug Abuse Patient Records regulations: The Federal rules restrict any use of the information to criminally investigate or prosecute any alcohol or drug abuse patient.[facility] MemorialIn the event this information is protected by the Federal Confidentiality of Alcohol and Drug Abuse Patient Records regulations: The Federal rules restrict any use of the information to criminally investigate or prosecute any alcohol or drug abuse patient.[facility] MemorialIn the event this information is protected by the Federal Confidentiality of Alcohol and Drug Abuse Patient Records regulations: The Federal rules restrict any use of the information to criminally investigate or prosecute any alcohol or drug abuse patient.[facility] MemorialIn the event this information is protected by the Federal Confidentiality of Alcohol and Drug Abuse Patient Records regulations: The Federal rules restrict any use of the information to criminally investigate or prosecute any alcohol or drug abuse patient.[facility] MemorialIn the event this information is protected by the Federal Confidentiality of Alcohol and Drug Abuse Patient Records regulations: The Federal rules restrict any use of the information to criminally investigate or prosecute any alcohol or drug abuse patient.[facility] MemorialIn the event this information is protected by the Federal Confidentiality of Alcohol and Drug Abuse Patient Records regulations: The Federal rules restrict any use of the information to criminally investigate or prosecute any alcohol or drug abuse patient.[facility] MemorialIn the event this information is protected by the Federal Confidentiality of Alcohol and Drug Abuse Patient Records regulations: The Federal rules restrict any use of the information to criminally investigate or prosecute any alcohol or drug abuse patient.[facility] MemorialIn the event this information is protected by the Federal Confidentiality of Alcohol and Drug Abuse Patient Records regulations: The Federal rules restrict any use of the information to criminally investigate or prosecute any alcohol or drug abuse patient.[facility] MemorialIn the event this information is protected by the Federal Confidentiality of Alcohol and Drug Abuse Patient Records regulations: The Federal rules restrict any use of the information to criminally investigate or prosecute any alcohol or drug abuse patient.[facility] Memorial[facility] the event this information is protected by the Federal Confidentiality of Alcohol and Drug Abuse Patient Records regulations: The Federal rules restrict any use of the information to criminally investigate or prosecute any alcohol or drug abuse patient.[facility] MemorialIn the event this information is protected by the Federal Confidentiality of Alcohol and Drug Abuse Patient Records regulations: The Federal rules restrict any use of the information to criminally investigate or prosecute any alcohol or drug abuse patient.[facility] MemorialIn the event this information is protected by the Federal Confidentiality of Alcohol and Drug Abuse Patient Records regulations: The Federal rules restrict any use of the information to criminally investigate or prosecute any alcohol or drug abuse patient.[facility] MemorialIn the event this information is protected by the Federal Confidentiality of Alcohol and Drug Abuse Patient Records regulations: The Federal rules restrict any use of the information to criminally investigate or prosecute any alcohol or drug abuse patient.[facility] MemorialIn the event this information is protected by the Federal Confidentiality of Alcohol and Drug Abuse Patient Records regulations: The Federal rules restrict any use of the information to criminally investigate or prosecute any alcohol or drug abuse patient.[facility] MemorialIn the event this information is protected by the Federal Confidentiality of Alcohol and Drug Abuse Patient Records regulations: The Federal rules restrict any use of the information to criminally investigate or prosecute any alcohol or drug abuse patient.[facility] MemorialIn the event this information is protected by the Federal Confidentiality of Alcohol and Drug Abuse Patient Records regulations: The Federal rules restrict any use of the information to criminally investigate or prosecute any alcohol or drug abuse patient.[facility] MemorialIn the event this information is protected by the Federal Confidentiality of Alcohol and Drug Abuse Patient Records regulations: The Federal rules restrict any use of the information to criminally investigate or prosecute any alcohol or drug abuse patient.[facility] MemorialIn the event this information is protected by the Federal Confidentiality of Alcohol and Drug Abuse Patient Records regulations: The Federal rules restrict any use of the information to criminally investigate or prosecute any alcohol or drug abuse patient.[facility] MemorialIn the event this information is protected by the Federal Confidentiality of Alcohol and Drug Abuse Patient Records regulations: The Federal rules restrict any use of the information to criminally investigate or prosecute any alcohol or drug abuse patient.[facility] MemorialIn the event this information is protected by the Federal Confidentiality of Alcohol and Drug Abuse Patient Records regulations: The Federal rules restrict any use of the information to criminally investigate or prosecute any alcohol or drug abuse patient.[facility] MemorialIn the event this information is protected by the Federal Confidentiality of Alcohol and Drug Abuse Patient Records regulations: The Federal rules restrict any use of the information to criminally investigate or prosecute any alcohol or drug abuse patient.[facility] MemorialIn the event this information is protected by the Federal Confidentiality of Alcohol and Drug Abuse Patient Records regulations: The Federal rules restrict any use of the information to criminally investigate or prosecute any alcohol or drug abuse patient.[facility] MemorialIn the event this information is protected by the Federal Confidentiality of Alcohol and Drug Abuse Patient Records regulations: The Federal rules restrict any use of the information to criminally investigate or prosecute any alcohol or drug abuse patient.[facility] MemorialIn the event this information is protected by the Federal Confidentiality of Alcohol and Drug Abuse Patient Records regulations: The Federal rules restrict any use of the information to criminally investigate or prosecute any alcohol or drug abuse patient.[facility] MemorialIn the event this information is protected by the Federal Confidentiality of Alcohol and Drug Abuse Patient Records regulations: The Federal rules restrict any use of the information to criminally investigate or prosecute any alcohol or drug abuse patient.[facility] MemorialIn the event this information is protected by the Federal Confidentiality of Alcohol and Drug Abuse Patient Records regulations: The Federal rules restrict any use of the information to criminally investigate or prosecute any alcohol or drug abuse patient.[facility] MemorialIn the event this information is protected by the Federal Confidentiality of Alcohol and Drug Abuse Patient Records regulations: The Federal rules restrict any use of the information to criminally investigate or prosecute any alcohol or drug abuse patient.[facility] MemorialIn the event this information is protected by the Federal Confidentiality of Alcohol and Drug Abuse Patient Records regulations: The Federal rules restrict any use of the information to criminally investigate or prosecute any alcohol or drug abuse patient.[facility] MemorialIn the event this information is protected by the Federal Confidentiality of Alcohol and Drug Abuse Patient Records regulations: The Federal rules restrict any use of the information to criminally investigate or prosecute any alcohol or drug abuse patient.[facility] MemorialIn the event this information is protected by the Federal Confidentiality of Alcohol and Drug Abuse Patient Records regulations: The Federal rules restrict any use of the information to criminally investigate or prosecute any alcohol or drug abuse patient.[facility] MemorialIn the event this information is protected by the Federal Confidentiality of Alcohol and Drug Abuse Patient Records regulations: The Federal rules restrict any use of the information to criminally investigate or prosecute any alcohol or drug abuse patient.[facility] MemorialIn the event this information is protected by the Federal Confidentiality of Alcohol and Drug Abuse Patient Records regulations: The Federal rules restrict any use of the information to criminally investigate or prosecute any alcohol or drug abuse patient.[facility] MemorialIn the event this information is protected by the Federal Confidentiality of Alcohol and Drug Abuse Patient Records regulations: The Federal rules restrict any use of the information to criminally investigate or prosecute any alcohol or drug abuse patient.[facility] MemorialIn the event this information is protected by the Federal Confidentiality of Alcohol and Drug Abuse Patient Records regulations: The Federal rules restrict any use of the information to criminally investigate or prosecute any alcohol or drug abuse patient.[facility] MemorialIn the event this information is protected by the Federal Confidentiality of Alcohol and Drug Abuse Patient Records regulations: The Federal rules restrict any use of the information to criminally investigate or prosecute any alcohol or drug abuse patient.[facility] MemorialIn the event this information is protected by the Federal Confidentiality of Alcohol and Drug Abuse Patient Records regulations: The Federal rules restrict any use of the information to criminally investigate or prosecute any alcohol or drug abuse patient.[facility] MemorialIn the event this information is protected by the Federal Confidentiality of Alcohol and Drug Abuse Patient Records regulations: The Federal rules restrict any use of the information to criminally investigate or prosecute any alcohol or drug abuse patient.[facility] MemorialIn the event this information is protected by the Federal Confidentiality of Alcohol and Drug Abuse Patient Records regulations: The Federal rules restrict any use of the information to criminally investigate or prosecute any alcohol or drug abuse patient.[facility] MemorialIn the event this information is protected by the Federal Confidentiality of Alcohol and Drug Abuse Patient Records regulations: The Federal rules restrict any use of the information to criminally investigate or prosecute any alcohol or drug abuse patient.[facility] MemorialIn the event this information is protected by the Federal Confidentiality of Alcohol and Drug Abuse Patient Records regulations: The Federal rules restrict any use of the information to criminally investigate or prosecute any alcohol or drug abuse patient.[facility] MemorialIn the event this information is protected by the Federal Confidentiality of Alcohol and Drug Abuse Patient Records regulations: The Federal rules restrict any use of the information to criminally investigate or prosecute any alcohol or drug abuse patient.[facility] MemorialIn the event this information is protected by the Federal Confidentiality of Alcohol and Drug Abuse Patient Records regulations: The Federal rules restrict any use of the information to criminally investigate or prosecute any alcohol or drug abuse patient.[facility] MemorialIn the event this information is protected by the Federal Confidentiality of Alcohol and Drug Abuse Patient Records regulations: The Federal rules restrict any use of the information to criminally investigate or prosecute any alcohol or drug abuse patient.[facility] MemorialIn the event this information is protected by the Federal Confidentiality of Alcohol and Drug Abuse Patient Records regulations: The Federal rules restrict any use of the information to criminally investigate or prosecute any alcohol or drug abuse patient.[facility] MemorialIn the event this information is protected by the Federal Confidentiality of Alcohol and Drug Abuse Patient Records regulations: The Federal rules restrict any use of the information to criminally investigate or prosecute any alcohol or drug abuse patient.[facility] MemorialIn the event this information is protected by the Federal Confidentiality of Alcohol and Drug Abuse Patient Records regulations: The Federal rules restrict any use of the information to criminally investigate or prosecute any alcohol or drug abuse patient.[facility] MemorialIn the event this information is protected by the Federal Confidentiality of Alcohol and Drug Abuse Patient Records regulations: The Federal rules restrict any use of the information to criminally investigate or prosecute any alcohol or drug abuse patient.[facility] MemorialIn the event this information is protected by the Federal Confidentiality of Alcohol and Drug Abuse Patient Records regulations: The Federal rules restrict any use of the information to criminally investigate or prosecute any alcohol or drug abuse patient.[facility] MemorialIn the event this information is protected by the Federal Confidentiality of Alcohol and Drug Abuse Patient Records regulations: The Federal rules restrict any use of the information to criminally investigate or prosecute any alcohol or drug abuse patient.[facility] MemorialIn the event this information is protected by the Federal Confidentiality of Alcohol and Drug Abuse Patient Records regulations: The Federal rules restrict any use of the information to criminally investigate or prosecute any alcohol or drug abuse patient.[facility] MemorialIn the event this information is protected by the Federal Confidentiality of Alcohol and Drug Abuse Patient Records regulations: The Federal rules restrict any use of the information to criminally investigate or prosecute any alcohol or drug abuse patient.[facility] MemorialIn the event this information is protected by the Federal Confidentiality of Alcohol and Drug Abuse Patient Records regulations: The Federal rules restrict any use of the information to criminally investigate or prosecute any alcohol or drug abuse patient.[facility] MemorialIn the event this information is protected by the Federal Confidentiality of Alcohol and Drug Abuse Patient Records regulations: The Federal rules restrict any use of the information to criminally investigate or prosecute any alcohol or drug abuse patient.[facility] MemorialIn the event this information is protected by the Federal Confidentiality of Alcohol and Drug Abuse Patient Records regulations: The Federal rules restrict any use of the information to criminally investigate or prosecute any alcohol or drug abuse patient.[facility] MemorialIn the event this information is protected by the Federal Confidentiality of Alcohol and Drug Abuse Patient Records regulations: The Federal rules restrict any use of the information to criminally investigate or prosecute any alcohol or drug abuse patient.[facility] MemorialIn the event this information is protected by the Federal Confidentiality of Alcohol and Drug Abuse Patient Records regulations: The Federal rules restrict any use of the information to criminally investigate or prosecute any alcohol or drug abuse patient.[facility] MemorialIn the event this information is protected by the Federal Confidentiality of Alcohol and Drug Abuse Patient Records regulations: The Federal rules restrict any use of the information to criminally investigate or prosecute any alcohol or drug abuse patient.[facility] MemorialIn the event this information is protected by the Federal Confidentiality of Alcohol and Drug Abuse Patient Records regulations: The Federal rules restrict any use of the information to criminally investigate or prosecute any alcohol or drug abuse patient.[facility] MemorialIn the event this information is protected by the Federal Confidentiality of Alcohol and Drug Abuse Patient Records regulations: The Federal rules restrict any use of the information to criminally investigate or prosecute any alcohol or drug abuse patient.[facility] MemorialIn the event this information is protected by the Federal Confidentiality of Alcohol and Drug Abuse Patient Records regulations: The Federal rules restrict any use of the information to criminally investigate or prosecute any alcohol or drug abuse patient.[facility] MemorialIn the event this information is protected by the Federal Confidentiality of Alcohol and Drug Abuse Patient Records regulations: The Federal rules restrict any use of the information to criminally investigate or prosecute any alcohol or drug abuse patient.[facility] MemorialIn the event this information is protected by the Federal Confidentiality of Alcohol and Drug Abuse Patient Records regulations: The Federal rules restrict any use of the information to criminally investigate or prosecute any alcohol or drug abuse patient.[facility] MemorialIn the event this information is protected by the Federal Confidentiality of Alcohol and Drug Abuse Patient Records regulations: The Federal rules restrict any use of the information to criminally investigate or prosecute any alcohol or drug abuse patient.[facility] MemorialIn the event this information is protected by the Federal Confidentiality of Alcohol and Drug Abuse Patient Records regulations: The Federal rules restrict any use of the information to criminally investigate or prosecute any alcohol or drug abuse patient.[facility] MemorialIn the event this information is protected by the Federal Confidentiality of Alcohol and Drug Abuse Patient Records regulations: The Federal rules restrict any use of the information to criminally investigate or prosecute any alcohol or drug abuse patient.[facility] MemorialIn the event this information is protected by the Federal Confidentiality of Alcohol and Drug Abuse Patient Records regulations: The Federal rules restrict any use of the information to criminally investigate or prosecute any alcohol or drug abuse patient.[facility] MemorialIn the event this information is protected by the Federal Confidentiality of Alcohol and Drug Abuse Patient Records regulations: The Federal rules restrict any use of the information to criminally investigate or prosecute any alcohol or drug abuse patient.[facility] MemorialIn the event this information is protected by the Federal Confidentiality of Alcohol and Drug Abuse Patient Records regulations: The Federal rules restrict any use of the information to criminally investigate or prosecute any alcohol or drug abuse patient.[facility] MemorialIn the event this information is protected by the Federal Confidentiality of Alcohol and Drug Abuse Patient Records regulations: The Federal rules restrict any use of the information to criminally investigate or prosecute any alcohol or drug abuse patient.[facility] MemorialIn the event this information is protected by the Federal Confidentiality of Alcohol and Drug Abuse Patient Records regulations: The Federal rules restrict any use of the information to criminally investigate or prosecute any alcohol or drug abuse patient.[facility] MemorialIn the event this information is protected by the Federal Confidentiality of Alcohol and Drug Abuse Patient Records regulations: The Federal rules restrict any use of the information to criminally investigate or prosecute any alcohol or drug abuse patient.[facility] MemorialIn the event this information is protected by the Federal Confidentiality of Alcohol and Drug Abuse Patient Records regulations: The Federal rules restrict any use of the information to criminally investigate or prosecute any alcohol or drug abuse patient.[facility] MemorialIn the event this information is protected by the Federal Confidentiality of Alcohol and Drug Abuse Patient Records regulations: The Federal rules restrict any use of the information to criminally investigate or prosecute any alcohol or drug abuse patient.[facility] MemorialIn the event this information is protected by the Federal Confidentiality of Alcohol and Drug Abuse Patient Records regulations: The Federal rules restrict any use of the information to criminally investigate or prosecute any alcohol or drug abuse patient.[facility] MemorialIn the event this information is protected by the Federal Confidentiality of Alcohol and Drug Abuse Patient Records regulations: The Federal rules restrict any use of the information to criminally investigate or prosecute any alcohol or drug abuse patient.[facility] Reason for Visit (unrecogniz ed section and [...] Reason Comments Received Outside Medical Records ED WC Reason Comments Refill Request Reason Onset Date [...] ORTH Toan Cortez MD [address] [place] [address] Johny Flores, CHIQUITA [address] [place] [address] Referral ID Status Reason Start Date Expiration Date V isits Requested Visits Authorized [id number] Authorized 11/05/2022 11/04/2023 30 30 Reason Comments PT Progress Note Specialty Diagnoses / Procedures Referred By Contac t Referred To Contact Physical Therapy / PHYSICAL THERAPY Diagnoses Leg length discrepancy [M21.70] Procedures NEW RS PT ORTH MSK Toan You MD [address] [place] [address] Johny Flores, PT [address] [place] [address] Reason Comments Received Outside Medical Records [facility] Emergency Department Summary 03/25/2023 Reason Onset Date [...] Comments Results COVID+ Reason Comments 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 [employer] Reason Comments Hives Possible hives to li ps Reason Comments Received Outside Medical Records [employer] Certification of Health Care provider for employees serious health condition 02/03/2025 Reason Comments Cardiology Follow Up Follow up Reason Comments [employer] Section - Other Reason Comments Preparations For Procedures Reason Comments Appointment Reason Comments Patient Update Reason Comments Received Outside Medical Records [facility] jr ging Reason Comments Received Outside Medical Records [facility] EKG Reason Comments Hives Follow Up Care Teams (unrecognized sec tion and content) Skip Tracer Relationship Specialty Start Date End Date Isabel Davenport MD [address] [place] [address] PCP - General Family Practice 10/25/10 Merari Camarillo MD [address] [facility] [place] [address] [place] [address] Cardiology 03/10/19 Cortez Forrester Jr., MD [address] [facility] [address] [place] [phone] Neurology 03/10/19 Antonio Christina, OD [address] [place] [address] Optometry 03/10/19 Skip Tracer Relationship Specialty Start Date End Date Isabel Davenport MD [address] [place] [address] PCP - General Family Practice 10/25/10 Merari Camarillo MD [address] [place] [address] [place] [address] Cardiology 03/10/19 Cortez Forrester Jr., MD [address] [facility] [address] [place] [phone] Neurology 03/10/19 [facility], OD [address] [place] [address] Optometry 03/10/19 Skip Tracer Relationship Specialty Start Date End Date Isabel Davenport MD [address] [place] [address] PCP - General Family Practice 10/25/10 Merari Camarillo MD [address] [place] [address] [place] [address] Cardiology 03/10/19 Cortez Forrester Jr., MD [address] [facility] [address] [place] [phone] Neurology 03/10/19 [facility], OD [address] [place] [address] Optometry 03/10/19 Skip Tracer Relationship Specialty Start Date End Date Isabel Davenport MD [address] [place] [address] PCP - General Family Practice 10/25/10 Merari Camarillo MD [address] [place] [address] [place] [address] Cardiology 03/10/19 Cortez Forrester Jr., MD [address] [facility] [address] [place] [phone] Neurology 03/10/19 J LuisAntonio velazquez, OD [address] [place] [address] Optometry 03/10/19 Skip Tracer Relationship Specialty Start Date End Date Isabel Davenport MD [address] [place] [address] PCP - General Family Practice 10/25/10 Merari Camarillo MD [address] [place] [address] [place] [address] Cardiology 03/10/19 Cortez Forrester Jr., MD [address] [facility] [address] [place] [phone] Neurology 03/10/19 J LuisValeriyon, OD [address] [place] [address] Optometry 03/10/19 Skip Tracer Relationship Specialty Start Date End Date Isabel Davenport MD [address] [place] [address] PCP - General Family Practice 10/25/10 Merari Camarillo MD [address] [place] [address] [place] [address] Cardiology 03/10/19 Cortez Forrester Jr., MD [address] [facility] [address] [place] [address] Neurology 03/10/19 J LuisValeriyon, OD [address] [place] [address] Optometry 03/10/19 Skip Tracer Relationship Specialty Start Date End Date Isabel Davenport MD [address] [place] [address] PCP - General Family Practice 10/25/10 Merari Camarillo MD [address] [place] [address] [place] [address] Cardiology 03/10/19 Cortez Forrester Jr., MD [address] [facility] [address] [place] [phone] Neurology 03/10/19 [facility], [address] [place] [address] Optometry 03/10/19 Skip Tracer Relationship Specialty Start Date End Date Isabel Davenport MD [address] [place] [address] PCP - General Family Practice 10/25/10 Merari Camarillo MD [address] [place] [address] [place] [address] Cardiology 03/10/19 Cortez Forrester Jr., MD [address] [facility] [address] [place] [phone] Neurology 03/10/19 [facility], OD [address] [place] [address] Optometry 03/10/19 Skip Tracer Relationship Specialty Start Date End Date Isabel Davenport MD [address] [place] [address] PCP - General Family Practice 10/25/10 Merari Camarillo MD [address] [place] [address] [place] [address] Cardiology 03/10/19 Cortez Forrester Jr., MD [address] [facility] [place] [address] [place] [phone] Neurology 03/10/19 [facility] [facility], [place] [address] [place] [address] Optometry 03/10/19 Skip Tracer Relationship Specialty Start Date End Date Isabel Davenport MD [address] [place] [address] PCP - General Family Medicine 10/25/10 Merari Camarillo MD [address], [place] [address] [place] [address] Cardiology 03/10/19 Cortez Forrester Jr., MD 4125 [facility] 201 [place] [address] Neurology 03/10/19 [facility], OD [address] [place] [address] Optometry 03/10/19 Skip Tracer Relationship Specialty Start Date End Date Isabel Davenport MD [address] [place] [address] PCP - General Family Medicine 10/25/10 Merari Camarillo MD [address], [place] [address] [place] [address] Cardiology 03/10/19 Cortez Forrester Jr., MD 4125 [facility] [place] [address] [place] [address] Neurology 03/10/19 Antonio Christina, OD [address] [place] [address] Optometry 03/10/19 Skip Tracer Relationship Specialty Start Date End Date Isable Davenport MD [address] [place] [address] PCP - General Family Medicine 10/25/10 Merari Camarillo MD [address], [place] [address] [place] [address] Cardiology 03/10/19 Cortez Forrester Jr., MD 4125 [facility] [place] [address] [place] [address] Neurology 03/10/19 [facility] OD [address] [place] [address] Optometry 03/10/19 Skip Tracer Relationship Specialty Start Date End Date Isabel Davenport MD [address] [place] [address] PCP - General Family Medicine 10/25/10 Merari Camarillo MD [address], [place] [address] [place] [address] Cardiology 03/10/19 Cortez Forrester Jr., MD 4125 [facility] [place] [address] [place] [address] Neurology 03/10/19 J LuisValeriyon, OD [address] [place] [address] Optometry 03/10/19 Skip Tracer Relationship Specialty Start Date End Date Isabel Davenport MD [address] [place] [address] PCP - General Family Medicine 10/25/10 Merari Camarillo MD [address], [place] [address] [place] [address] Cardiology 03/10/19 Cortez Forrester Jr., MD 4125 [facility] [place] [address] [place] [address] Neurology 03/10/19 [facility], OD [address] [place] [address] Optometry 03/10/19 Skip Tracer Relationship Specialty Start Date End Date Isabel Davenport MD [address] [place] [address] PCP - General Family Medicine 10/25/10 Merari Camarillo MD [address], [place] [address] [place] [address] Cardiology 03/10/19 Cortez Forrester Jr., MD 4125 [facility] [address] [place] [address] Neurology 03/10/19 [facility], OD [address] [place] [address] Optometry 03/10/19 Skip Tracer Relationship Specialty Start Date End Date Isabel Davenport MD [address] [place] [address] PCP - General Family Medicine 10/25/10 Merari Camarillo MD [address], [place] [address] [place] [address] Cardiology 03/10/19 Cortez Forrester Jr., MD 4125 [facility] [address] [place] [address] Neurology 03/10/19 Antonio Christina, OD [address] [place] [address] Optometry 03/10/19 Skip Tracer Relationship Specialty Start Date End Date Isabel Davenport MD [address] [place] [address] PCP - General Family Medicine 10/25/10 Merari Camarillo MD [address], [place] [address] [place] [address] Cardiology 03/10/19 Cortez Forrester Jr., MD 4125 [facility] [address] [place] [address] Neurology 03/10/19 [facility] [address] [place] [address] Optometry 03/10/19 Skip Tracer Relationship Specialty Start Date End Date Isabel Davenport MD [address] [place] [address] PCP - General Family Medicine 10/25/10 Merari Camarillo MD [address], [place] [address] [facility] [place] [address] Cardiology 03/10/19 Cortez Forrester Jr., MD 4125 [facility] [address] [place] [address] Neurology 03/10/19 [facility] [place] [address] [place] [address] Optometry 03/10/19 Skip Tracer Relationship Specialty Start Date End Date Isabel Davenport MD [address] [place] [address] PCP - General Family Medicine 10/25/10 Merari Camarillo MD [address], [place] [address] [place] [address] Cardiology 03/10/19 Cortez Forrester Jr., MD 4125 [facility] [place] [address] [place] [phone] Neurology 03/10/19 Sanford, Antonio, OD [address] [place] [address] Optometry 03/10/19 Fifi Calderón MD [address] [place] [address] Primary Staff Physician Cardiology 11/14/22 Skip Tracer Relationship Specialty Start Date End Date Isabel Davenport MD [address] [place] [address] PCP - General Family Medicine 10/25/10 Merari Camarillo MD [address], [place] [address] [place] [address] Cardiology 03/10/19 Cortez Forrester Jr., MD 4125 [facility] [address] [place] [address] Neurology 03/10/19 Sanford, [place], OD [address] [place] [address] Optometry 03/10/19 Fifi Calderón MD [address] [place] [address] Primary Staff Physician Cardiology 11/14/22 Skip Tracer Relationship Specialty Start Date End Date Isabel Davenport MD [address] [place] [address] PCP - General Family Medicine 10/25/10 Merari Camarillo MD [address], [place] [address] [place] [address] Cardiology 03/10/19 Cortez Forrester Jr., MD 4125 [facility] [address] [place] [address] Neurology 03/10/19 San[facility], [place], OD [address] [place] [address] Optometry 03/10/19 Fifi Calderón MD [address] [place] [address] Primary Staff Physician Cardiology 11/14/22 Skip Tracer Relationship Specialty Start Date End Date Isabel Davenport MD [address] [place] [address] PCP - General Family Medicine 10/25/10 Merari Camarillo MD [address], [place] [address] [place] [address] Cardiology 03/10/19 Cortez Forrester Jr., MD 4125 [facility] [address] [place] [address] Neurology 03/10/19 J Luis, Antonio, OD [address] [place] [address] Optometry 03/10/19 Fifi Calderón MD [address] [place] [address] Primary Staff Physician Cardiology 11/14/22 Skip Tracer Relationship Specialty Start Date End Date Isabel Davenport MD [address] [place] [address] PCP - General Family Medicine 10/25/10 Merari Camarillo MD [address], [place] [address] [place] [address] Cardiology 03/10/19 Cortez Forrester Jr., MD 4125 [facility] [place] [address] [place] [address] Neurology 03/10/19 [facility], OD [address] [place] [address] Optometry 03/10/19 Fifi Calderón MD [address] [place] [address] Primary Staff Physician Cardiology 11/14/22 Skip Tracer Relationship Specialty Start Date End Date Isabel Davenport MD [address] [place] [address] PCP - General Family Medicine 10/25/10 Merari Camarillo MD [address], [place] [address] [place] [address] Cardiology 03/10/19 Cortez Forrester Jr., MD 4125 [facility] [address] [place] [phone] Neurology 03/10/19 [facility], OD [address] [place] [address] Optometry 03/10/19 Fifi Calderón MD [address] [place] [address] Primary Staff Physician Cardiology 11/14/22 Skip Tracer Relationship Specialty Start Date End Date Isabel Davenport MD [address] [place] [address] PCP - General Family Medicine 10/25/10 Merari Camarillo MD [address], [place] [address] [place] [address] Cardiology 03/10/19 Cortez Forrester Jr., MD 4125 [facility] [place] [address] [place] [address] Neurology 03/10/19 [facility], [place], OD [address] [place] [address] Optometry 03/10/19 Fifi Calderón MD [address] [place] [address] Primary Staff Physician Cardiology 11/14/22 Skip Tracer Relationship Specialty Start Date End Date Isabel Davenport MD [address] [place] [address] PCP - General Family Medicine 10/25/10 Merari Camarillo MD [address], [place] [address] [place] [address] Cardiology 03/10/19 Cortez Forrester Jr., MD 4125 [facility] [place] [address] [place] [address] Neurology 03/10/19 [facility], [place], OD [address] [place] [address] Optometry 03/10/19 Fifi Calderón MD [address] [place] [address] Primary Staff Physician Cardiology 11/14/22 Skip Tracer Relationship Specialty Start Date End Date Isabel Davenport MD [address] [place] [address] PCP - General Family Medicine 10/25/10 Merari Camarillo MD [address], [place] [address] [place] [address] Cardiology 03/10/19 Cortez Forrester Jr., MD 4125 [facility] [place] [address] [place] [phone] Neurology 03/10/19 Antonio Christina, OD [address] [place] [address] Optometry 03/10/19 Fifi Calderón MD [address] [place] [address] Primary Staff Physician Cardiology 11/14/22 Skip Tracer Relationship Specialty Start Date End Date Isabel Davenport MD [address] [place] [address] PCP - General Family Medicine 10/25/10 Merari Camarillo MD [address], [place] [address] [place] [address] Cardiology 03/10/19 Cortez Forrester Jr., MD 4125 [facility] [place] [address] [place] [phone] Neurology 03/10/19 Antonio Christina, OD [address] [place] [address] Optometry 03/10/19 Fifi Calderón MD [address] [place] [address] Primary Staff Physician Cardiology 11/14/22 Skip Tracer Relationship Specialty Start Date End Date Isabel Davenport MD [address] [place] [address] PCP - General Family Medicine 10/25/10 Merari Camarillo MD [address], [place] [address] [place] [address] Cardiology 03/10/19 Cortez Forrester Jr., MD 4125 [facility] [place] [address] [place] [phone] Neurology 03/10/19 Antonio Christina, OD [address] [place] [address] Optometry 03/10/19 Fifi Calderón MD [address] [place] [address] Primary Staff Physician Cardiology 11/14/22 Skip Tracer Relationship Specialty Start Date End Date Isabel Davenport MD [address] [place] [address] PCP - General Family Medicine 10/25/10 Merari Camarillo MD [address], [place] [address] [place] [address] Cardiology 03/10/19 Cortez Forrester Jr., MD 4125 [facility] [address] [place] [address] Neurology 03/10/19 Antonio Christina, OD [address] [place] [address] Optometry 03/10/19 Fifi Calderón MD [address] [place] [address] Primary Staff Physician Cardiology 11/14/22 Skip Tracer Relationship Specialty Start Date End Date Isabel Davenport MD [address] [place] [address] PCP - General Family Medicine 10/25/10 Merari Camarillo MD [address], [place] [address] [place] [address] Cardiology 03/10/19 Cortez Forrester Jr., MD 4125 [facility] [place] [address] [place] [address] Neurology 03/10/19 Antonio Christina, OD [address] [place] [address] Optometry 03/10/19 Fifi Calderón MD [address] [place] [address] Primary Staff Physician Cardiology 11/14/22 Skip Tracer Relationship Specialty Start Date End Date Isabel Davenport MD [address] [place] [address] PCP - General Family Medicine 10/25/10 Merari Camarillo MD [address], [place] [address] [place] [address] Cardiology 03/10/19 Cortez Forrester Jr., MD 4124 [facility] [place] [address] [place] [address] Neurology 03/10/19 Antonio Christina, OD [address] [place] [address] Optometry 03/10/19 Fifi Calderón MD [address] [place] [address] Primary Staff Physician Cardiology 11/14/22 Skip Tracer Relationship Specialty Start Date End Date Isabel Davenport MD [address] [place], [place] 997701 PCP - General Family Medicine 10/25/10 Merari Camarillo MD [address], [place] [address] [place] [address] Cardiology 03/10/19 Cortez Forrester Jr., MD 4125 [facility] [place] [address] [place] [address] Neurology 03/10/19 Antonio Christina, OD [address] [place] [address] Optometry 03/10/19 Fifi Calderón MD [address] [place] [address] Primary Staff Physician Cardiology 11/14/22 Skip Tracer Relationship Specialty Start Date End Date Isabel Davenport MD [address] [place], [place] 913231 PCP - General Family Medicine 10/25/10 Merari Camarillo MD [address], [place] [address] [place] [address] Cardiology 03/10/19 Cortez Forrester Jr., MD 4125 [facility] [address] [place] [phone] Neurology 03/10/19 Antonio Christina, [address] [place] [address] Optometry 03/10/19 Fifi Calderón MD [address] [place] [address] Primary Staff Physician Cardiology 11/14/22 Skip Tracer Relationship Specialty Start Date End Date Isabel Davenport MD [address] [place] [address] PCP - General Family Medicine 10/25/10 Merari Camarillo MD 224 [facility], [place] [address] [place] [address] Cardiology 03/10/19 Cortez Forrester Jr., MD 4125 [facility] [address] [place] [address] Neurology 03/10/19 Antonio Christina, [address] [place] [address] Optometry 03/10/19 Fifi Calderón MD [address] [place] [address] Primary Staff Physician Cardiology 11/14/22 Skip Tracer Relationship Specialty Start Date End Date Isbael Davenport MD [address] [place], [place] 021081 PCP - General Family Medicine 10/25/10 Merari Camarillo MD [address], [place] [address] [place] [address] Cardiology 03/10/19 Cortez Forrester Jr., MD [address] [place] [address] [place] [address] Neurology 03/10/19 Antonio Christina, OD [address] [place] [address] Optometry 03/10/19 Fifi Calderón MD [address] [place], [place] [address]64[address] Primary Staff Physician Cardiology 11/14/22 Skip Tracer Relationship Specialty Start Date End Date Isabel Davenport MD [address] [place] [address] PCP - General Family Medicine 10/25/10 Merari Camarillo MD [address], [place] [address] [place] [address] Cardiology 03/10/19 Cortez Forrester Jr., MD 4125 [facility] [place] [address] [place] [address] Neurology 03/10/19 Antonio Christina, OD [address] [place] [address] Optometry 03/10/19 Fifi Calderón MD [address] [place] [address] Primary Staff Physician Cardiology 11/14/22 Skip Tracer Relationship Specialty Start Date End Date Isabel Davenport MD [address] [place] [address] PCP - General Family Medicine 10/25/10 Merari Camarillo MD [address], [place] [address] [place] [address] Cardiology 03/10/19 Cortez Forrester Jr., MD 4125 [facility] [place] [address] [place] [address] Neurology 03/10/19 Antonio Christina OD [address] [place] [address] Optometry 03/10/19 Fifi Calderón MD [address] [place] [address] Primary Staff Physician Cardiology 11/14/22 Skip Tracer Relationship Specialty Start Date End Date Isabel Davenport MD [address] [place] [address] PCP - General Family Medicine 10/25/10 Merari Camarillo MD [address], [place] [address] [place] [address] Cardiology 03/10/19 Cortez Forrester Jr., MD 4125 [facility] [place] [address] [place] [address] Neurology 03/10/19 Antonio Christina, OD [address] [place] [address] Optometry 03/10/19 Fifi Calderón MD [address] [place] [address] Primary Staff Physician Cardiology 11/14/22 Skip Tracer Relationship Specialty Start Date End Date Isabel Davenport MD [address] [place] [address] PCP - General Family Medicine 10/25/10 Merari Camarillo MD [address], [place] [address] [place] [address] Cardiology 03/10/19 Cortez Forrester Jr., MD 4125 [facility] [place] [address] [place] [address] Neurology 03/10/19 Antonio Christina, OD [address] [place] [address] Optometry 03/10/19 Fifi Calderón MD [address] [place] [address] Primary Staff Physician Cardiology 11/14/22 Skip Tracer Relationship Specialty Start Date End Date Isabel Davenport MD [address] [place] [address] PCP - General Family Medicine 10/25/10 Merari Camarillo MD [address], [place] [address] [place] [address] Cardiology 03/10/19 Cortez Forrester Jr., MD 4125 [facility] [address] [place] [phone] Neurology 03/10/19 Antonio Christina, OD [address] [place] [address] Optometry 03/10/19 Fifi Calderón MD [address] [place], [place] 2035595 Primary Staff Physician Cardiology 11/14/22 Skip Tracer Relationship Specialty Start Date End Date Isabel Davenport MD [address] [place] [address] PCP - General Family Medicine 10/25/10 Merari Camarillo MD [address] , [facility] [address] [place] [address] Cardiology 03/10/19 Cortez Forrester Jr., MD [address] [phone] Neurology 03/10/19 Antonio Christina, OD [address] [place] [address] Optometry 03/10/19 Fifi Calderón MD [address] [place] [address] Primary Staff Physician Cardiology 11/14/22 Skip Tracer Relationship Specialty Start Date End Date Isabel Davenport MD [address] [place] [address] PCP - General Family Medicine 10/25/10 Merari Camarillo MD [address], [place] [address] [place] [address] Cardiology 03/10/19 Cortez Forrester Jr., MD [address] [place] [address] [place] [address] Neurology 03/10/19 Antonio Christina, OD [address] [place] [address] Optometry 03/10/19 Fifi Calderón MD [address] [place] [address] Primary Staff Physician Cardiology 11/14/22 Skip Tracer Relationship Specialty Start Date End Date Isabel Davenport MD [address] [place] [address] PCP - General Family Medicine 10/25/10 Merari Camarillo MD [address], [place] [address] [place] [address] Cardiology 03/10/19 Cortez Forrester Jr., MD [address] [place] [address] [place] [phone] Neurology 03/10/19 Antonio Christina, OD [address] [place] [address] Optometry 03/10/19 Fifi Calderón MD [address] [place] [address] Primary Staff Physician Cardiology 11/14/22 Skip Tracer Relationship Specialty Start Date End Date Isabel Davenport MD [address] [place] [address] PCP - General Family Medicine 10/25/10 Merari Camarillo MD [address], [place] [address] [place] [address] Cardiology 03/10/19 Cortez Forrester Jr., MD 4125 [facility] [place] [address] [place] [address] Neurology 03/10/19 Antonio Christina OD [address] [place] [address] Optometry 03/10/19 Fifi Calderón MD [address] [place] [address] Primary Staff Physician Cardiology 11/14/22 Skip Tracer Relationship Specialty Start Date End Date Isabel Davenport MD [address] [place] [address] PCP - General Family Medicine 10/25/10 Merari Camarillo MD [address], [place] [address] [place] [address] Cardiology 03/10/19 Cortez Forrester Jr., MD 4125 [facility] [place] [address] [place] [address] Neurology 03/10/19 Antonio Christina, OD [address] [place] [address] Optometry 03/10/19 Fifi Calderón MD [address] [place] [address] Primary Staff Physician Cardiology 11/14/22 Skip Tracer Relationship Specialty Start Date End Date Isabel Davenport MD [address] [place], [place] 185631 PCP - General Family Medicine 10/25/10 Merari Camarillo MD [address] [facility], [place] [address] [place] [address] Cardiology 03/10/19 Cortez Forrester Jr., MD 4125 [facility] [address] [place] [address] Neurology 03/10/19 J LuisAntonio velazquez, OD [address] [place] [address] Optometry 03/10/19 Fifi Calderón MD [address] [place] [address] Primary Staff Physician Cardiology 11/14/22 Vadim Teixeira APRN.CUT OFF SAW GRADER [address] [facility] [place] [address] Airport Operations Coordinator Internal Medicine 10/12/24 Skip Tracer Relationship Specialty Start Date End Date Isabel Davenport MD [address] [place] [address] PCP - General Family Medicine 10/25/10 Merari Camarillo MD [address], [place] [address] [place] [address] Cardiology 03/10/19 Cortez Forrester Jr., MD 4125 [facility] [place] [address] [place] [address] Neurology 03/10/19 Antonio Christina OD [address] [place] [address] Optometry 03/10/19 Fifi Calderón MD [address] [place] [address] Primary Staff Physician Cardiology 11/14/22 Vadim Teixeira APRN.CUT OFF SAW GRADER [address] [facility] [place] [address] Airport Operations Coordinator Internal Medicine 10/12/24 Skip Tracer Relationship Specialty Start Date End Date Isabel Davenport MD [address] [place], [place] 266601 PCP - General Family Medicine 10/25/10 Merari Camarillo MD [address], [place] [address] [place] [address] Cardiology 03/10/19 Cortez Forrester Jr., MD 4125 [facility] [address] [place] [phone] Neurology 03/10/19 Antonio Christina, OD [address] [place] [address] Optometry 03/10/19 Fifi Calderón MD [address] [place], [place] 3855795 Primary Staff Physician Cardiology 11/14/22 Vadim Teixeira APRN.CUT OFF SAW GRADER [address] [facility] [facility] [place] [address] Airport Operations Coordinator Internal Medicine 10/12/24 Skip Tracer Relationship Specialty Start Date End Date Isabel Davenport MD [address] [place] [address] PCP - General Family Medicine 10/25/10 Merari Camarillo MD 224 [facility] 225 [place] [address] Cardiology 03/10/19 Cortez Forrester Jr., MD 4125 [facility] [address] [place] [address] Neurology 03/10/19 Antonio Christina, OD [address] [place] [address] Optometry 03/10/19 Fifi Calderón MD [address] [place], [place] 4839095 Primary Staff Physician Cardiology 11/14/22 Vadim Teixeira, GUEST RELATIONS MANAGER.CUT OFF SAW GRADER [address] [facility] [address] [place], [place] [address] Airport Operations Coordinator Internal Medicine 10/12/24 Skip Tracer Relationship Specialty Start Date End Date Isabel Davenport MD [address] [place], [place] 096991 PCP - General Family Medicine 10/25/10 Merari Camarillo MD 224 [facility], [facility] 225 [place], [place] [address] Cardiology 03/10/19 oCrtez Forrester Jr., MD 4125 [facility] [address] [place] [address] Neurology 03/10/19 Antonio Christina OD [address] [place], [place] 67[address] Optometry 03/10/19 Fifi Calderón MD [address] [place] [address] Primary Staff Physician Cardiology 11/14/22 Vadim Teixeira, GUEST RELATIONS MANAGER.CUT OFF SAW GRADER [address] [facility] [place] [address] Airport Operations Coordinator Internal Medicine 10/12/24 Skip Tracer Relationship Specialty Start Date End Date Isabel Davenport MD [address] [place] [address] PCP - General Family Medicine 10/25/10 Merari Camarillo MD [address], [place] [address] [place] [address] Cardiology 03/10/19 Cortez Forrester Jr., MD 4125 [facility] [address] [place] [address] Neurology 03/10/19 Antonio Christina, OD [address] [place] [address] Optometry 03/10/19 Fifi Calderón MD [address] [facility] [place] [address] Primary Staff Physician Cardiology 11/14/22 Vadim Teixeira APRN.CUT OFF SAW GRADER [address] [facility] [place] [address] Airport Operations Coordinator Internal Medicine 10/12/24 Skip Tracer Relationship Specialty Start Date End Date Isabel Davenport MD [address] [place] [address] PCP - General Family Medicine 10/25/10 Merari Camarillo MD [address], [facility] [address] [place] [address] Cardiology 03/10/19 Cortez Forrester Jr., MD 4125 [facility] [address] [place] [address] Neurology 03/10/19 Sanford Antonio, OD [address] [place] [address] Optometry 03/10/19 Fifi Calderón MD [address] [place] [address] Primary Staff Physician Cardiology 11/14/22 Vadim Teixeira APRN.CUT OFF SAW GRADER [address] [facility] [address] [place], [place] [address] Airport Operations Coordinator Internal Medicine 10/12/24 Skip Tracer Relationship Specialty Start Date End Date Isabel Davenport MD [address] [place], [place] 894261 PCP - General Family Medicine 10/25/10 Merari Camarillo MD 224 [facility], [place] [address] [place], [place] [address] Cardiology 03/10/19 Cortez Forrester Jr., MD 4125 [facility] [address] [place] [phone] Neurology 03/10/19 Sanford Antonio, SABINE [address] [place] [address] Optometry 03/10/19 Fifi Calderón MD [address] [place] [address] Primary Staff Physician Cardiology 11/14/22 Vadim Teixeira APRN.CUT OFF SAW GRADER [address] [facility] [address] [place], [place] [address] Airport Operations Coordinator Internal Medicine 10/12/24 Skip Tracer Relationship Specialty Start Date End Date Isabel Davenport MD [address] [place] [address] PCP - General Family Medicine 10/25/10 Merari Camarillo MD [address], [place] [address] [place] [address] Cardiology 03/10/19 Cortze Forrester Jr., MD [address] [facility] [address] [place] [phone] Neurology 03/10/19 Antonio Christina OD [address] [place] [address] Optometry 03/10/19 Fifi Claderón MD [address] [place], [place] [id number] Primary Staff Physician Cardiology 11/14/22 Vadim Teixeira APRN.CUT OFF SAW GRADER [address] [facility] [address] [place], [place] [id number] Airport Operations Coordinator Internal Medicine 10/12/24 Skip Tracer Relationship Specialty Start Date End Date Isabel Davenport MD [address] [place] [address] PCP - General Family Medicine 10/25/10 Merari Camarillo MD [address], [place] [address] [place] [address] Cardiology 03/10/19 Cortez Forrester Jr., MD [address] [facility] [address] [place] [phone] Neurology 03/10/19 Antonio Christina, OD [address] [place] [address] Optometry 03/10/19 Fifi Calderón MD [address] [place] [address] Primary Staff Physician Cardiology 11/14/22 Vadim Teixeira, DALIA.CUT OFF SAW GRADER [address] [facility] [address] [place], [place] [id number] Airport Operations Coordinator Internal Medicine 10/12/24 Skip Tracer Relationship Specialty Start Date End Date Isabel Davenport MD [address] [place], [place] [address] PCP - General Family Medicine 10/25/10 Merari Camarillo MD [address] [facility], [place] [address] [place] [address] Cardiology 03/10/19 Cortez Forrester Jr., MD [address] [facility] [address] [place] [phone] Neurology 03/10/19 J LuisAntonio velazquez, OD [address] [place] [address] Optometry 03/10/19 Fifi Calderón MD [address] [place] [address] Primary Staff Physician Cardiology 11/14/22 Vadim Teixeira, DALIA.CUT OFF SAW GRADER [address] [facility] [address] [place], [place] [address] Airport Operations Coordinator Internal Medicine 10/12/24 Skip Tracer Relationship Specialty Start Date End Date Isabel Davenport MD [address] [place] [address] PCP - General Family Medicine 10/25/10 Merari Camarillo MD [address], [place] [address] [place] [address] Cardiology 03/10/19 Cortez Forrester Jr., MD [address] [facility] [place] [address] [place] [phone] Neurology 03/10/19 Antonio Christina OD [address] [address] Optometry 03/10/19 Fifi Calderón MD [address] [place] [address] Primary Staff Physician Cardiology 11/14/22 Vadim Teixeira APRN.CUT OFF SAW GRADER [address] [facility] [place] [address] Airport Operations Coordinator Internal Medicine 10/12/24 Skip Tracer Relationship Specialty Start Date End Date Isabel Davenport MD [address] [place], [place] [address] PCP - General Family Medicine 10/25/10 Merari Camarillo MD [address], [place] [address] [place] [address] Cardiology 03/10/19 Cortez Forrester Jr., MD [address] [place] [address] [place] [phone] Neurology 03/10/19 Antonio Christina OD [address] [place] [address] Optometry 03/10/19 Fifi Calderón MD [address] [place] [address] Primary Staff Physician Cardiology 11/14/22 Vadim Teixeira APRN.CUT OFF SAW GRADER [address] [facility] [address] [place], [place] [address] Airport Operations Coordinator Internal Medicine 10/12/24 Team Status: Active Member Role Status Dates Dr. Jaspreet Davenport MD Primary Care Provider Active Team Status: Inactive Member Role Status Dates Dr. Jaspreet Davenport MD Primary Care Provider Active Start: April 08, 2025 End: April 08, 2025 Dr. Dandre Melissa MD Attending Provider Activ e Start: April 08, 2025 End: April 08, 2025 Dr. Dandre Melissa MD Referring Provider Activ e Start: April 08, 2025 End: April 08, 2025 Skip Tracer Relationship Specialty Start Date End Date Isabel Davenport MD [address] [place] [address] PCP - General Family Medicine 10/25/10 Merari Camarillo MD [address] [facility], [place] [address] [place], [place] [id number] Cardiology 03/10/19 Cortez Forrester Jr., MD [address] [facility] [place] [address] [place] [phone] Neurology 03/10/19 Antonio Christina OD [address] [place] [address] Optometry 03/10/19 Fifi Calderón MD [address] [place] [address] Primary Staff Physician Cardiology 11/14/22 Vdaim Teixeira APRN.CUT OFF SAW GRADER [address] [facility] [facility] [address] [place], [place] [address] Airport Operations Coordinator Internal Medicine 10/12/24 Team Status: Inactive Member Role Status Dates Dr. Jaspreet Davenport MD Primary Care Provider Active Start: April 20, 2025 End: April 20, 2025 Dr. Dandre Melissa MD Attending Provider Activ e Start: April 20, 2025 End: April 20, 2025 Dr. Dandre Melissa MD Referring Provider Activ e Start: April 20, 2025 End: April 20, 2025 Goals (unrecognized section and content) Goals may be documented in a n alternate sectionGoals may be documented in an alternate sectionGoals may be documented in an alternate section FOR RECORDS PERTAINING TO PATIENTS [...] BE BASED ON THE PRIMARY CLINICAL RECORDS. [email or web address] provides no warranty or guarantee of the accuracy or completeness of information in this document.
[2025-04-24 08:21] LABS: Hematocrit 37.5 % (37-47); Mean Corpuscular Hgb 26.5 pg (27.0-32.0); Mean Corpuscular Volume 82.8 fL (81-99); Mean Platelet Vol. 10.9 fl (6.2-12.0); Platelet Count 325 K/mm3 (150-450); RBC Distribution Width CV 14.2 % (11.6-14.6); RBC Distribution Width SD 42.9 fl (35.1-43.9); Red Blood Count 4.53 M/mm3 (4.2-5.4); White Blood Count 11.6 K/mm3 (4.4-11.0)
[2025-04-24 09:04] LABS: Anion Gap 11 (5-15); BUN 11 mg/dL (4-19); BUN/Creat Ratio 12.8 RATIO (10-20); Calcium,Total 9.4 mg/dL (7.6-11.0); Carbon Dioxide 26.9 mmol/L (21.0-32.0); Chloride 98 mmol/L (98-108); Creatinine, Serum 0.88 mg/dL (0.70-1.20); EST Glomerular Filtration Rate 77 (>60); Glucose 282 mg/dL (70-99); Potassium 4.4 mmol/L (3.3-5.1); Sodium Level 136 mmol/L (133-145)
== END | disposition home or self-care (01) ==
LOC: LAB.FUTURE 07:15 → LAB 07:19
PROVIDERS: PCP Family Medicine; Referring Provider Otolaryngology; Visit Provider Otolaryngology
DX: Z01.810 Encounter for preprocedural cardiovascular examination (principal)
CPT/HCPCS: 36415; 80048; 85027

== ENCOUNTER 2025-08-20 03:45 | Emergency (ER) | payer OTHER, BC, SELFPAY ==
[2025-08-20 03:47] VITALS: BP 187/104; PULSE 66; RESP 18; TEMP 36.9; O2SAT 100; BMI 35.9
--- NOTE | 2025-08-20 03:59 | CT_ITS ---
PROCEDURE: BRAIN/HEAD WITHOUT CONTRAST 08/20/2025 REASON FOR EXAM: HEAD TRAUMA TECHNIQUE: Procedure Code: CTBR Modality: CT Procedure: BRAIN/HEAD WITHOUT CONTRAST Coronal and Sagittal reconstruction series were provided. One or more dose reduction techniques were used (e.g., Automated exposure control, adjustment of the mA and/or kV according to patient size, use of iterative reconstruction technique. RADIATION DOSE SUMMARY: CTDI Vol 44.99 mGy DLP :846.73 mGycm COMPARISON: none FINDINGS: Accentuated bilateral cerebral periventricular deep white matter hypodensities suggesting hypoperfusion with scattered tiny hypodense foci suggestive of microvascular ischemic changes. Bernstein-white matter differentiation is maintained. Normal CT appearance of the posterior fossa structures. No intracerebral or extra axial hemorrhage. No definite calvarial fractures. Unremarkable ventricular system. Cavum septum pellucidum and verge. Variant. Prominent cortical sulci and extra-axial CSF spaces No midline shifts or deformity. The osseous structures in the skull base show left otomastoiditis. The scanned paranasal sinuses are unremarkable. Vascular atheromatous calcifications. CT/Brain/Head without Contrast IMPRESSION: No intracerebral or extra axial hemorrhage. No acute cerebrovascular insult. If clinical symptoms persist, further evaluati on with MRI may be considered as clinically warranted. Bilateral cerebral microvascular ischemic changes. Reading Location: [facility]
--- NOTE | 2025-08-20 03:59 | EX.ED.DYSGE1 ---
HPI History of Present Illness Chief Complaint: Head Injury Narrative Narrative: Patient is a 55-year-old female with past medical history of CVA, asthma, diabetes, hypertension who presents to the emergency department the chief complaint of headache and hitting her head on a metal pole. She states that she was getting trash off the ground and stood up and hit her head on a metal pole. States that she did not pass out. States that she does have a headache and blurry vision which is new. She states that she her peripheral vision is bad but that is already secondary to a old stroke this is not new. [facility] Medical History CVA (cerebral vascular accident) Asthma Diabetes HTN (hypertension) Home Medications ?Medication ?Instructions ?Recorded ?Last Taken ?Type hydrochlorothiazide 12.5 mg capsule 1 tab PO DAILY BLOOD PRESSURE 09/21/16 Unknown History amlodipine 10 mg tablet 10 mg PO DAILY ANTIPLATELET 01/25/18 Unknown History days ##30 metformin 500 mg tablet 1,000 mg PO BID BLOOD PRESSURE 01/25/18 Unknown History days ##60 aspirin 81 mg tablet,delayed 81 mg PO DAILY ANTIPLATELET 04/20/19 Unknown History release (Adult Low Dose Aspirin) clopidogrel 75 mg tablet 75 mg PO DAILY 04/20/19 Unknown History metoprolol tartrate 25 mg tablet 25 mg PO DAILY 04/20/19 Unknown History atorvastatin 40 mg tablet 40 mg PO DAILY 08/20/25 Unknown History fexofenadine 180 mg tablet 180 mg PO DAILY 08/20/25 Unknown History (Heather Allergy) fluticasone propionate 50 2 spray intranasal Q12H 08/20/25 Unknown History mcg/actuation nasal spray,suspension levothyroxine 50 mcg tablet 50 mcg PO DAILY 08/20/25 Unknown History losartan 100 mg tablet 100 mg PO DAILY 08/20/25 Unknown History sitagliptin phosphate 100 mg 100 mg PO DAILY 08/20/25 Unknown History tablet (Januvia) Allergy/AdvReac Type Severity Reaction Status Date / Time Fish Containing Products Allergy NEEDS Verified 08/20/25 03:46 FOLLOW-UP tetanus and diphtheria Allergy NEEDS Verified 08/20/25 03:46 toxoids FOLLOW-UP Surgical History Status post percutaneous patent foramen ovale closure Ovarian mass Social History Smoking Status: Never smoker alcohol intake: current alcohol intake frequency: holidays/special occasions only ROS ROS ED ROS Narrative Constitutional: Complains of headache as noted above denies lightness or dizziness Eyes: Denies double vision Cardiovascular: Denies chest pain Respiratory: Denies shortness of breath Abdomen: Denies nausea vomiting diarrhea Neurological: Denies numbness, weakness, tingling Skin: Complains of swelling to the left side of her head from where she hit it on a pole EXAM Physical Exam Narrative Exam Narrative: General: Patient lying in bed rest comfortably did not appear to be in acute distress Head: Atraumatic, normocephalic Eyes: PERRL bilaterally, EOMI bilaterally, no conjunctival injection noted Neck: Soft, supple, trachea midline Cardiovascular: Regular rate Extremities: +5/5 strength noted in the bilateral upper lower extremities Neurological: Patient following commands knew that she was at [facility] year is 2024 NIH of 0 GCS 15 Skin: Warm, dry, patient does have a swelling to the left aspect of her head suggesting underlying hematoma Const Vital Signs: 08/20/25 03:47 08/20/25 03:47 08/20/25 04:10 Temperature 98.5 F Temperature Source Oral Pulse Rate 66 Respiratory Rate 18 Respiratory Effort Normal Non-Labored Respiratory Depth Normal Respiratory Pattern Normal Blood Pressure 187/104 H 171/92 H Blood Pressure Mean 131 118 Pulse Ox 100 100 Oxygen Delivery Method Room Air Room Air MDM MDM MDM Narrative Medical decision making narrative: Patient is a 55-year-old female who presents to the emergency department the chief complaint of closed head injury without loss conscious. On the differential diagnose includes but limited to headache, intracranial hemorrhage, concussion. Once workup is obtained reviewed she will be reevaluated. Patient be given a gram of Tylenol. Patient CT head brain and without contrast was reviewed which showed no intracerebral or extra-axial hemorrhage. Bilateral cerebral microvascular schema changes noted. Discussed results with patient she like to go home at this point time. She is vies use Tylenol for headache. She is encouraged to follow-up with her doctor in outpatient setting and return with worsening symptoms or any concerns. She is agreeable to plan all question concerns answered she is discharged home in stable condition. Radiography Diagnostic Testing: Clinical Impression(s) from Imaging Studies Brain CT 08/20/25 03:59 IMPRESSION: No intracerebral or extra axial hemorrhage. No acute cerebrovascular insult. If clinical symptoms persist, further evaluation with MRI may be considered as clinically warranted. Bilateral cerebral microvascular ischemic changes. Reading Location: [place] [address] Discharge Plan Triage Chief Complaint: Head Injury ED Provider: Jt Manuel Dx/Rx/DC Orders Clinical Impression: Closed head injury without loss of consciousness, History of cardioembolic cerebrovascular accident (CVA), History of diabetes mellitus, Hypertension Prescriptions: No Action metformin 500 mg tablet 1,000 mg PO BID 30 Days Qty: 60 Patient Comments: amlodipine 10 mg tablet 10 mg PO DAILY 30 Days Qty: 30 Patient Comments: take 1 tablet by mouth once daily hydrochlorothiazide 12.5 MG capsule 1 tab PO DAILY clopidogrel 75 MG tablet 75 mg PO DAILY metoprolol tartrate 25 MG tablet 25 mg PO DAILY aspirin [Adult Low Dose Aspirin] 81 MG tablet,delayed release (DR/EC) 81 mg PO DAILY losartan 100 mg tablet 100 mg PO DAILY Patient Comments: take 1 tablet by mouth once daily levothyroxine 50 mcg tablet 50 mcg PO DAILY Patient Comments: take 1 tablet by mouth every morning ON AN EMPTY STOMACH fluticasone propionate 50 mcg/actuation spray,suspension 2 spray INTRANASAL Q12H Patient Comments: instill 2 sprays into each nostril once daily Rinse mouth after use fexofenadine [Heather Allergy] 180 mg tablet 180 mg PO DAILY atorvastatin 40 mg tablet 40 mg PO DAILY Patient Comments: take 1 tablet by mouth once daily Januvia 100 mg tablet 100 mg PO DAILY Primary Care Provider: Jaspreet Henry Referrals: Jaspreet Henry MD [Primary Care Provider, Family Practice] [facility] [Group of Physicians, Medical] Activity Restrictions/Additional Instructions: Use Tylenol for headache control max dose of Tylenol in [address] of your head did not show any acute findings. Follow-up your doctor in outpatient setting. Return with worsening symptoms or other concerns Print Language: Sinhala Disposition Disposition: Home, Self Care
[2025-08-20 04:10] VITALS: BP 171/92
--- OUTSIDE RECORDS SUMMARY | 2025-08-20 04:17 | XMS RPT_ITS | CCD ---
Author Organization [facility] CliniSyny Care Team Providers Care Student Teacher Name Role Phone PROVIDER, UNKNOWN Attending Unavailable [...] Unavailable Isabel Davenport MD Primary Care Provider [phone] Merari Camarillo MD Unavailable Usama Briseno MD, William J Unavailable [facility] REGALADO Antonio Unavailable Isabel Davenport MD Primary Care Provider Merari Camarillo MD Unavailable Usama Briseno MD, William J Unavailable [phone] [place] REGALADO Antonio Unavailable Isabel Davenport MD Primary Care Provider ISABEL DAVENPORT Primary Care Unavailable SJ MCCARTHY JR Referring Unavailable SJ MCCARTHY JR Referring Unavailable ISABEL DAVENPORT Primary Care Unavailable Isabel Davenoprt MD Primary Care Provider Merari Camarillo MD Unavailable Usama Briseno MD, Cortez Cassidy Unavailable [facility] REGALADOAntonio Unavailable Kaitlynn MACHADO, Fifi Unavailable Kaitlynn MACHADO, Fifi Unavailable Ethel MACHADO, Isabel Stoner Primary Care Provider Marquise MACHADO, Merari Unavailable Puneet RETAIL BUSINESS ANALYST.APPLICATION INFRASTRUCTURE ENGINEER, Vadim Unavailable Ethel MACHADO, Dr. Vogel Primary Care Provider Shin MACHADO, Dr. Amos Attending Provider Shin MACHADO, Dr. Amos Referring Provider Eloise MACHADO, Dr. Cason Attending Provider Dandre Melissa Referring Unavailabl e Kontak, Jaspreet Primary Care Unavailable Dandre Melissa Attending Unavailabl e Shin, Dandre Referring Unavailabl e Kontak, Jaspreet Primary Care Unavailable Dandre Melissa Attending Unavailabl e Roberto Carlosann, Dandre Referring Unavailabl e Kontak, Jaspreet Primary Care Unavailable Dandre Melissa Attending Unavailabl e Kontak, Jaspreet Primary Care Unavailable Yoav Navas Attending Unavailable Dandre Melissa Referring Unavailabl e PHYLLIS BERNARDO Attending Unavailable SELF Referring Unavailable ISABEL DAVENPORT R Primary Care Unavailable ANTONIO CHRISTINA Attending Unavailable SELF Referring Unavailable ISABEL DAVENPORT R Primary Care Unavailable ISABEL DAVENPORT R Primary Care Unavailable PUNEET VADIM Referring Unavailable JEMIMA WINN Attending Unavailable PUNEET, VADIM Referring Unavailable ISABEL DAVENPORT R Primary Care Unavailable ISABEL DAVENPORT Primary Care Unavailable ISABEL DAVENPORT Attending Unavailable KELLI, ELIZABETH Attending Unavailable ISABEL DAVENPORT R Primary Care Unavailable VIDHYA RICH Attending Unavailable PARASROBINA, ELIZABETH Referring Unavailable ISABEL DAVENPORT Primary Care Unavailable RIVERA GANDHI Attending Unavailable ISABEL DAVENPORT R Primary Care Unavailable RIVERA GANDHI Referring Unavailable ISABEL DAVENPORT R Primary Care Unavailable TESTNANCY VILLALOBOS Referring Unavailable DHEERAJISABEL YOUNG R Primary Care Unavailable TESTNANCY VILLALOBOS Referring Unavailable DHEERAJISABEL YOUNG R Primary Care Unavailable ETHEL, ISABEL R Primary Care Unavailable RAKAN LOYOLAGeorgia Morillo Referring Unavailable DHEERAJHANNAH, ISABEL R Primary Care Unavailable TESTSTACEYNANCY Attending Unavailable ISABEL DAVENPORT R Primary Care Unavailable DHEERAJTAGenaro, ISABEL R Primary Care Unavailable ELIZABETH PEREIRA Attending Unavailable SELF Referring Unavailable DHEERAJLOISKISABEL R Primary Care Unavailable DHEERAJTAK, ISABEL R Referring Unavailable VADIM TEIXEIRA Attending Unavailable DHEERAJTAK, ISABEL R Primary Care Unavailable Allergies Allergy Classification Reported Allergen(s) Allergy Type Date of Onset Reaction(s) Facility (20 sources) TETANUS VACCINES AND TOXOID; Translations: [TETANUS VACCINES AND TOXOID] Propensity to adverse reactions to drug (disorder) [facility] Other [facility] (20 sources) Fish; Translations: [FISH CONTAINING PRODUCTS] Drug Allergy 9 Hives, Swelling [facility] Work Phone: (4 sources) Fish Containing Products Allergy to substance 0 Swelling, NEEDS FOLLOW-UP [facility] (20 sources) Iodine; Translations: [IODINE] Drug Allergy 4 Unknown [facility] (20 sources) Shellfish; Translations: [SHELLFISH DERIVED] Drug Allergy 4 Other: See Comments [facility] (4 sources) tetanus and diphtheria toxoids; Translations: [tetanus and diphtheria toxoids] Allergy to substance 3 NEEDS FOLLOW-UP [facility] (1 source) Fish Containing Products Drug allergy (disorder) 3 [facility] Repository Medications Current Medications Medication Drug Class(es) Dates Sig (Normalized) Sig (Original) amLODIPine 10 mg oral tablet (20 sources) Dihydropyridine Calcium Channel Gato Start: 01-25-2018 End: 05-11-2025 take 1 tablet by mouth once daily amLODIPine (NORVASC) 10 mg tablet Indications: Essential hypertension Take 1 tablet by mouth once daily. 90 tablet 3 05/11/2025 Active Comment on above: take 1 tablet [...] on above: Take 1 tablet by garry twice daily for 5 days. aspirin 81 mg delayed release oral tablet (20 sources) Platelet Aggregation Inhibitor, Nonsteroidal Anti-inflammatory Drug Start: 04-20-2019 take 1 tablet by mouth once daily aspirin, enteric coated (ASPIRIN, ENTERIC COATED) 81 mg EC tablet take 1 tablet by mouth once daily 100 tablet 3 12/27/2020 Active Comment on above: take 1 tablet by garry once daily atorvastatin 40 mg oral tablet (20 sources) HMG-CoA Reductase Inhibitor Start: 05-11-2025 End: 11-07-2025 take 1 tablet by mouth once daily atorvastatin (LIPITOR) 40 mg tablet Indications: Essential hypertension Take 1 tablet by mouth once daily. 90 tablet 1 05/11/2025 11/07/2025 Active Start: 12-31-2023 End: 03-14-2025 take 1 tablet [...] Take 1 tablet by garry once daily. 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 90 tablet 3 05/11/2025 05/11/2026 Active Comment on above: take 1 tablet by garry th once daily Take 1 tablet by garry th once daily. docosanol 100 mg/ml topical cream (20 sources) Start: 01-05-2025 docosanol (ABREVA) 10 % crea Apply to affected area five times a day. 2 g 1 01/05/2025 Active [id number] 0.3 ml EPINEPHrine 1 mg/ml auto-injector (20 sources) alpha-Adrenergic Agonist, beta-Adrenergic Agonist, Catecholamine Start: 01-15-2025 EPINEPHrine (EPIPEN) 0.3 mg/0.3 mL auto-injector Inject 0.3 mL intramuscularly as needed. 2 Each 01/15/2025 Active fexofenadine hydrochloride 180 mg oral tablet (20 sources) Histamine-1 Receptor Antagonist Start: 01-15-2025 End: 05-11-2026 take 1 tablet by mouth once daily as needed fexofenadine (HEATHER) 180 mg tablet Take 1 tablet by mouth once daily as needed. 90 tablet 1 05/11/2025 05/11/2026 Active fluticasone propionate 0.05 mg/actuat metered dose nasal spray (20 sources) Corticosteroid Start: 05-11-2025 End: 08-09-2025 take 2 spray(s) nasal route once daily fluticasone (FLONASE) 50 mcg/actuation nasal spray Use 2 sprays in each nostril once daily. 18.2 mL 2 05/11/2025 08/09/2025 Active Start: 10-21-2024 End: 05-11-2025 take 1-2 spray(s) nasal route once daily fluticasone (FLONASE) 50 mcg/actuation nasal spray instill 1 TO 2 sprays into each nostril once daily if needed 10/21/2024 05/11/2025 Discontinued Start: 10-06-2022 take 2 spray(s) by out once daily fluticasone (FLONASE) 50 mcg/actuation nasal spray Use 2 Sprays in each nostril once daily. Rinse mouth after use. 1 Each 0 10/06/2022 Active Comment on above: Use 2 Sprays in each nostril once daily. Rinse mouth after use. hydroCHLOROthiazide 25 mg oral tablet (20 sources) Thiazide Diuretic Start: 023 End: 025 take 1 tablet by mouth once daily hydroCHLOROthiazide 25 mg tablet Indications: Essential hypertension TAKE 1 TABLET BY MOUTH DAILY 30 tablet 06/08/2025 Active Start: 11-30-2021 End: 11-30-2022 take 1 tablet by mouth once daily hydroCHLOROthiazide (HYDRODIURIL, ESIDRIX) 25 mg tablet Indications: Essential hypertension Take 1 tablet by mouth once daily. 90 tablet 3 11/30/2021 11/30/2022 Active Start: 09-21-2016 Hydrochlorothi azide 12.5 MG capsule Active 1 {tbl} PO DAILY September 21, 2016 1:00am Comment on above: Take 1 tablet by [facility] once daily. levothyroxine sodium 0.05 mg oral tablet (20 sources) l-Thyroxine Start: 06-28-20 End: 05-11-20 take 1 tablet by mouth once daily for thyroid dysfunction levothyroxine (LEVOXYL) 50 mcg tablet Indications: Type 2 diabetes mellitus without complication, without long-term current use of insulin (HCC) , Acquired hypothyroidism Take 1 tablet by mouth once daily. Take on empty stomach. For Thyroid 90 tablet 3 05/11/2025 Active Start: 04-20-2021 End: 03-14-2022 take 1 [...] Angiotensin 2 Receptor Gato Start: 3 End: take 1 tablet by mouth once daily losartan (COZAAR) 100 mg tablet Indications: Essential hypertension Take 1 tablet by mouth once daily. 90 tablet 3 05/11/2025 05/11/2026 Active Start: 08-11-2021 End: 11-20-2022 take 1 [...] 0 06/28/2022 10/24/2022 Discontinued Start: 01-25-2018 End: 05-11-2025 take 2 tablets by mouth twice daily at mealtime metFORMIN (GLUCOPHAGE) 500 mg tablet Indications: Type 2 diabetes mellitus without complication, without long-term current use of insulin (HCC) Take 2 tablets by mouth two times a day with meals. 360 tablet 3 05/11/2025 Active Start: 01-25-2018 take 1000 mg by mout h twice daily Metformin Active 1000 MG PO [...] tablet (20 sources) beta-Adrenergic Gato Start: 06-11-2024 End: 05-11-2025 take 1 tablet by mouth once daily metoprolol succinate ER (TOPROL XL) 25 mg 24 hr tablet Take 1 tablet by mouth once daily. 90 tablet 3 05/11/2025 Active Start: 06-14-2022 End: 06-11-2024 take 0.5 [...] d aily. naproxen 500 mg oral tablet (3 sources) Nonsteroidal Anti-inflammatory Drug Start: 3 take [...] 2.5 % 1 Drop (AK-DILATE, IZA-SYNEPHRINE) SITagliptin 100 mg oral tablet (20 sources) Dipeptidyl Peptidase 4 Inhibitor Start: 04-27-2025 End: 11-07-2025 take 1 tablet by mouth once daily SITagliptin phosphate (JANUVIA) 100 mg tablet Take 1 tablet by mouth once daily. 90 tablet 1 05/11/2025 11/07/2025 Active Start: 01-05-2025 End: 04-27-2025 take 1 tablet by mouth once daily SITagliptin phosphate (JANUVIA) 50 mg tablet Take 1 tablet by mouth once daily. 30 tablet 11 01/05/2025 04/27/2025 Discontinued (Changing Therapy/Dosage Form) 125 ml sodium chloride 9 mg/ml prefilled syringe (20 sources) Start: 08-02-2022 End: 02-18-2024 sodium chloride 0.9 % (flush) 10 mL (BD POSIFLUSH) tiZANidine 4 mg oral tablet (5 sources) Central alpha-2 Adrenergic Agonist Start: 07-16-2025 take 1 tablet by mouth every eight hours as needed tiZANidine (ZANAFLEX) 4 mg tablet Indications: Right-sided chest pain Take 1 tablet by mouth every 8 hours as needed. 20 tablet 07/16/2025 Active Start: 03-25-2023 take 1 capsule by mo [facility] every eight hours as needed Tizanidine (Zanaflex) 4 mg capsule Active 4 mg PO Q8H as needed for muscle spasticity March 25, 2023 12:00am tropicamide 10 mg/ml ophthalmic solution (3 sources) Anticholinergic Start: 05-25-2025 End: 05-25-2025 tropicamide 1 % 1 drop (MYDRIACYL) Start: 03-28-2024 End: 03-28-2024 tropicamide 1 % 1 Drop (MYDR IACYL) Start: 07-12-2022 End: 07-12-2022 tropicamide 1 % [...] mg / caffeine 65 mg oral tablet (4 sources) Platelet Aggregation Inhibitor, Nonsteroidal Anti-inflammatory Drug, Central Nervous System Stimulant, Methylxanthine Start: 09-21-2016 End: 01-25-2018 Aspirin-Acetaminop hen-Caffeine 1 EACH tablet Discontinued 1 NMA PO DAILY September 21, 2016 1:00am January 25, 2018 11:22am Start: 09-21-2016 End: 01-25-2018 Qcxzumk-Vunufjsxeumkp-Fhblpl ne Discontinued 1 EACH PO DAILY September 21, 2016 12:00am January 25, 2018 10:22am acetaminophen 325 mg / HYDROcodone bitartrate 5 mg oral tablet (4 sources) Opioid Agonist Start: 07-18-2020 End: 07-20-2020 [...] Start: 09-06-2022 take 1 capsule by mo [facility] every eight hours as needed benzonatate (TESSALON PERLES) 100 mg capsule Take 1 capsule by mouth three times daily as needed for cough. 12 capsule 0 09/06/2022 Active Comment on above: Take 1 capsule by mo ut three times daily as needed for cough. Take 2 capsules by out three times daily as needed. clindamycin 300 mg oral capsule (4 sources) Lincosamide Antibacterial Start: 2019 End: 2022 [...] once daily glimepiride 2 mg oral tablet (8 sources) Sulfonylurea Start: 2021 End: 2021 take [...] times daily. methylPREDNISolone 4 mg oral tablet (4 sources) Corticosteroid Start: 2018 End: 2022 Methylprednisolone 4 MG tablet Discontinued 4 mg PO DIRECTED 1 April 21, 2019 12:00am December 26, 2022 [...] 5, 1 tab day 6. triamcinolone acetonide 0.73838 mg/mg topical ointment (13 sources) Corticosteroid Start: [...] [Adjustment disorder, unspecified] 01-05-2025 Chronic Allergic reactions (12 sources) Inflammatory dermatosis; Translations: [Dermatitis, unspecified] Onset: [...] Translations: [Diabetes mellitus] Onset: 10-10-2016 03-31-2021 Chronic Disorders of lipid metabolism (20 sources) Mixed [...] Translations: [Suspected COVID-19 virus infection] Episodic Influenza (4 sources) Influenza due to Influenza A virus; Translations: [Influenza due to other identified influenza virus with other respiratory manifestations] 10-30-2022 Episodic Mood disorders (20 sources) Depressive disorder; Translations: [Depression] Onset: 05-12-2020 05-12-2020 Chronic Nonspecific chest pain (5 sources) Right sided chest pain; Translations: [Chest pain, unspecified] Onset: 07-16-2025 07-16-2025 Episodic Open wounds of extremities (3 sources) Laceration of left hand; Translations: [Laceration without foreign body of left hand, initial encounter] 12-16-2022 Episodic Osteoarthritis (1 source) Osteoarthritis of right hip joint; Translations: [Unilateral primary osteoarthritis, right hip] Chronic Other aftercare (2 sources) residential (current) use of oral hypoglycemic drugs; Translations: [residential (current) use of oral hypoglycemic drugs] Onset: 01-19-2019 Other and unspecified benign neoplasm (1 source) Melanocytic nevi, unspecified; Translations: [Nevus] Onset: 08-03-2025 Episodic Other circulatory disease (20 sources) History of cardiovascular surgery; Translations: [Presence of other cardiac implants and grafts] 01-16-2025 Chronic Other connective tissue disease (1 source) Plantar fascial fibromatosis; Translations: [Plantar fascial fibromatosis] Onset: 08-03-2025 Episodic Other gastrointestinal disorders (2 sources) Occult blood in stools; Translations: [Other fecal abnormalities] 03-09-2025 Episodic Other injuries and conditions due [...] [Obesity, unspecified] Onset: 10-06-2008 06-10-2019 Chronic Other nutritional; endocrine; and metabolic disorders (2 sources) 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; Translations: [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 and body mass index (BMI) of 34.0 to 34.9 in adult] 06-03-2025 Chronic Other upper respiratory infections (1 source) Chronic sinusitis, unspecified; Translations: [Chronic sinusitis, unspecified] Onset: 04-14-2025 Chronic Other upper respiratory infections (2 sources) Acute maxillary sinusitis; Translations: [Acute maxillary sinusitis, unspecified] Episodic Residual codes; unclassified (1 source) Pain, unspecified; Translations: [Pain] Onset: 08-03-2025 Episodic Spondylosis; intervertebral disc disorders; other back [...] Other Problems Problem Classification Problem Date Documented Da te Episodic/Chronic Blindness and vision defects (20 sources) Diplopia; Translations: [Homonymous bilateral field defects, left side] Onset: 01-16-2019 Episodic Diabetes mellitus without complication (20 sources) Impaired fasting glycemia; Translations: [Impaired fasting glucose] Onset: 04-28-2009 04-28-2009 Episodic Diseases of mouth; excluding dental (5 sources) Oral lesion; Translations: [Unspecified lesions of oral mucosa] Onset: 04-21-2025 01-05-2025 Episodic Disorders of teeth and jaw (20 sources) Jaw pain; Translations: [Jaw pain] Onset: 05-12-2020 05-12-2020 Episodic Other acquired deformities (20 sources) Leg length inequality; Translations: [Unequal limb length (acquired), unspecified site] Onset: 02-05-2023 Episodic Other circulatory disease (20 sources) History of cerebrovascular accident; Translations: [Personal history of transient ischemic attack (TIA), and cerebral infarction without residual deficits] Onset: 05-12-2020 05-12-2020 Episodic Other connective tissue disease (20 sources) [...] menstrual cycle] Onset: 04-29-2013 04-29-2013 Episodic Other gastrointestinal disorders (1 source) Other fecal abnormalities; Translations: [Positive fecal occult blood test] Onset: 03-09-2025 Episodic Other lower respiratory disease (20 sources) Snoring; Translations: [Snoring] Onset: 05-12-2020 05-12-2020 Episodic Other nervous system disorders (20 sources) Abnormal gait; Translations: [Unspecified abnormalities of gait and mobility] Onset: 04-27-2010 04-27-2010 Episodic Other non-traumatic joint disorders (20 sources) Shoulder joint pain; Translations: [Pain in unspecified shoulder] Onset: 09-05-2012 09-05-2012 Episodic Other screening for suspected conditions (not mental disorders or infectious disease) (13 sources) Patient encounter status; Translations: [Encounter for screening mammogram for malignant neoplasm of breast] Onset: 02-27-2025 Episodic Otitis media and related conditions (2 sources) Dysfunction of left eustachian tube; Translations: [Unspecified Eustachian tube disorder, left ear] Onset: 04-27-2025 04-27-2025 Episodic Residual codes; unclassified (20 sources) Family [...] Test Name Value Interpretation Reference Range Facility [facility] 08-03-2025 CNOV Office Visit (PODIWS ) ----- MARTHA VENEGAS ([id number]) 1970 F Date Time Provider Department 08/03/25 8:45 AM NANCY UP PODIWS During your visit today, we recorded the following information about you: Sonal Quinteros LPN 08/03/2025 10:45 PM Signed Patient presents with: Left Foot - New, Pain Right Foot - New, Discolored spot on heel AMB ROOMING INTAKE FLOWSHEET DATA Pain Pain Level: 0 Pain Location: Foot-Left Description: Aching, Pressure Duration Amount of Time: 6 Duration Units: Weeks Frequency: Intermittent Intervention/Comfort measure: Positioning CHEYANNE Kellogg Matthew 08/03/2025 9:02 AM Addendum Powerstep Original Full length. Can purchase at [facility] [employer] and boots,shoes and more here in [place], [employer] in [place] or [place]. Also can find in [employer] in [facility]. Powersteps can also be purchased online, starting around $45.00 If you have a metatarsal or dancer pad for your feet apply the pad directly to the insole so you can interchange between your shoes. Find a shoe with a removable insole and take this out and replace with your powerstep insole. Always bring powersteps with you when shopping for shoes so that you can make sure that everything fits well together We discussed the lump on your left foot: - The lump on your left foot is likely a plantar fibroma, which is a thickening of the plantar fascia. - I recommend trying a gel insert in your shoe to provide cushioning and reduce discomfort. I will provide this for you. - I will also call in a prescription for a topical cream to help shrink the lump. Please note that the cream may not always be effective, and there is a possibility the lump could return. - Follow up with me in 6 weeks to 2 months to assess your progress. If the lump does not improve or continues to cause pain, we can discuss other options, including surgery. Surgery would involve a recovery period of 3-4 weeks and carries a risk of recurrence in a different location. We discussed the small lesion on your right foot: - The lesion on your right foot appears to be a nevus (mole). It is symmetrical, has regular borders, and is uniform in color, which are reassuring features. - I recommend monitoring the lesion for any changes, including: - Increase in size (larger than a pencil eraser). - Changes in color, shape, or symmetry. - I encourage you to discuss this lesion with your supervisor tower during your next visit. If you are concerned, you can request a biopsy, which would involve a small punch biopsy with one stitch if needed. Next steps: - Use the gel insert and topical cream as discussed for the lump on your left foot. - Monitor the lesion on your right foot for any changes and bring it to your supervisor tower's attention. - Follow up with me in 6 weeks to 2 months to evaluate your progress with the lump on your left foot. If you have any questions or concerns before your follow-up, please contact our office. Marlen Johnson RN 08/03/2025 10:[address] Up Martha was provided with Powerstep Comfortlast Inserts, size 9-10.5, and instructed/educated in its application, wear, and care. All questions were answered, and patient was able to demonstrate competence with the necessary skills to utilize the above equipment. KELLEN Garrett Matthew 08/03/2025 10:45 PM Signed Subjective The patient is a 55-year-old female presenting with a lump on the left foot and a skin lesion on the right foot. The patient reports a lump on the left foot, first noticed in August. She has been preoccupied with personal matters, including the recent deaths of her mother and grandmother, which has delayed seeking medical attention. 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 The pain is alleviated by removing her shoe and massaging the area. She has also tried stretching exercises. She has a history of plantar fasciitis and has undergone plantar fascial surgery on both feet. She also had a similar lump on the right foot, which was removed during surgery but later recurred. Additionally, the patient reports a small, pen-sized lesion on the right foot that has been present for a couple of years and is gradually spreading. She is currently seeing a supervisor tower but has not yet discussed this lesion with them. Musculoskeletal: (+) left foot lump, (+) left foot pain with ambulation Skin: (+) enlarging right heel pigmented lesion Objective There were no vitals taken for this visit. - Cardiovascular: Dorsalis pedis and posterior tibial pulses palpable bilaterally; capillary refill time <5 seconds; skin temperature warm proximally and distally. - Skin: No open sores on b (more content not included)... Normal [facility] XR FOOT 3V AP/LAT/OBL LTon 0 08-03-2025 XR FOOT 3V AP/LAT/OBL LT * * *Final Report* * * DATE OF EXAM: Aug 03 2025 8:31AM [id number] - XR FOOT 3V AP/LAT/OBL LT / PROCEDURE REASON: Pain * * * * Physician Interpretation * * * * EXAMINATION / TECHNIQUE: XR FOOT 3V AP/LAT/OBL LT HISTORY: PT STATES CYST ON LEFT PLANTAR FOOT Pain . COMPARISON: 01/26/2017 RESULT: Left foot: Degenerative changes throughout the interphalangeal joints. There is os naviculare. Mild degenerative changes first MTP joint. There is os peroneus. Plantar and posterior calcaneal enthesophytes. Degenerative changes at the midfoot. AP image right foot demonstrates scattered degenerative changes without acute osseous findings. There is os naviculare. IMPRESSION: Degenerative changes without acute osseous findings. 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: PSCEsau Transcribe Date/Time: Aug 06 2025 2:09P Dictated by : MIGUEL MENDIETA MD This examination was interpreted and the report reviewed and electronically signed by: MIGUEL MENDIETA MD on Aug 06 2025 2:11PM EST [id number] [facility] CNOVon 07-16-2025 CNOV Office Visit (WOUCA) ----- MARTHA VENEGAS ([id number]) 1970 F Date Time Provider Department 07/16/25 8:15 AM RIVERA GANDHI During your visit today, we recorded the following information about you: Temperature Pulse Respiration Blood pressure 97 degrees 67/minute 18/minute 186/97 Weight 93 kg Rivera Gandhi APRN.APPLICATION INFRASTRUCTURE ENGINEER 07/16/2025 8:39 AM Signed [facility] Subjective Martha Preciado Theo is a 55 year old female c/o right sided chest and rib pain after falling down stairs on accident at nite in dark a week ago, lingering pain with pulling and pushing, certain movements, taking tylenol with no relief, denies bruising or swelling, no shortness of breath or difficulty breathing Patient presents with: Fall: Fell down stairs last week and was starting to feel better and then has had increased pain since trying to return to normal daily living pain on R side ant and post The history is provided by the patient. Chest Pain This is a new problem. The current episode started more than 2 days ago. The problem occurs constantly. The problem has not changed since onset.The pain is associated with raising an arm, movement and lifting. The pain is present in the lateral region. The pain is moderate. The quality of the pain is described as brief and sharp. The pain does not radiate. Pertinent negatives include no cough, no fever and no shortness of breath. Review of Systems Constitutional: Negative for chills, fatigue and fever. HENT: Negative. Respiratory: Negative for cough, chest tightness, shortness of breath and wheezing. Cardiovascular: Positive for chest pain. Musculoskeletal: Positive for arthralgias. Negative for joint swelling. Skin: Negative. Objective BP 186/97 Pulse 67 Temp 36.1 ?C (97 ?F) Resp 18 Wt 93 kg (205 lb 0.4 oz) SpO2 100% BMI 35.18 kg/m? Physical Exam Vitals and nursing note reviewed. Constitutional: Appearance: Normal appearance. Cardiovascular: Rate and Rhythm: Regular rhythm. Heart sounds: Normal heart sounds. Pulmonary: Effort: Pulmonary effort is normal. Breath sounds: Normal breath sounds. Abdominal: General: Abdomen is flat. Bowel sounds are normal. Palpations: Abdomen is soft. Musculoskeletal: Arms: Comments: No rashes, bruising or swelling evident Skin: General: Skin is dry. Neurological: General: No focal deficit present. Mental Status: She is alert. {ASSESSMENT/PLAN: 1. Right-sided chest pain - ICD9: 786.50, ICD10: R07.9 Atypical chest pain, symptoms are not consistent with cardiac ischemia due to pleuritic nature of pain and localization of the pain possible etiology include Costochondritis/chest wall pain and musculoskeletal - Oxygen saturation 99% - XR RIBS/CHEST 3V AP RIB/OBLS/CXR RIGHT- will notify if any results positive for further care recommendations -Rest and elevate the affected painful area. Apply cold compresses intermittently. . As pain recedes, begin normal activities slowly as tolerated. - TIZANIDINE 4 MG TABLET - blood pressure 186-97, has not taking blood pressure medications yet this morning, instructed to take LETHA, and follow up with PCP for further evaluation/recheck Rivera Gandhi APRN.APPLICATION INFRASTRUCTURE ENGINEER -I have reviewed and updated with the patient: allergies, VS, current medications, Past Medical History,Past Surgical History,Past Family Medical History, Past Social History. - Patient education provided today - Discussed with patient medications that are indicated and how to use the medications and what the potential side effects are. - Warning signs of worsening condition explained to patient -Instructed to follow up with PCP if symptoms not improving in next 2-3 days - Patient left in stable condition after questions answered and patient verbalizes understanding - Instructed to go to Emergency Department right away with any severe worsening chest pain, shortness of breath, headache, dizziness, weakness, numbness,leg swelling , tingling, problems walking or speaking or any other concerning symptoms History and Record Review External record(s) reviewed: prior outpatient record. Differential Diagnoses - costocondritis is more likely for the following reason(s): suggested by HANDP - acute mi is less likely for the following reason(s): HANDP not suggestive Disposition The patient was discharged. OTC Medications were advised: Procedures Rivera Gandhi, DALIA.APPLICATION INFRASTRUCTURE ENGINEER 07/16/2025 8:37 AM Addendum ASSESSMENT/PLAN: 1. Right-sided chest pain - ICD9: 786.50, ICD10: R07.9 Atypical chest pain, symptoms are not consistent with cardiac ischemia due to pleuritic nature of pain and localization of the pain possible etiology include Costochondritis/chest wall pain and musculoskeletal - Oxygen saturation 99% - XR RIBS/CHEST 3V AP RIB/OBLS/CXR RIGHT- will notify if any results positive for (more content not included)... Normal [facility] XR RIB/CHST 3V AP RIB/OBL/CH [facility] 07-16-2025 XR RIB/CHST 3V AP RIB/OBL/CHST R * * *Final Report* * * DATE OF EXAM: Jul 16 2025 8:48AM WOX [id number] - XR RIB/CHST 3V AP RIB/OBL/CHST R / PROCEDURE REASON: Right-sided chest pain * * * * Physician Interpretation * * * * HISTORY: Right-sided chest pain Right sided rib pain after recent fall. Pain in mid to upper frontal and posterior ribs. TECHNIQUE: AP and oblique right ribs and PA chest COMPARISON: 11/11/2024 chest x-ray RESULT: Right ribs appear intact. Lungs and pleura appear clear. Heart does not appear enlarged. IMPRESSION: No right rib fracture is noted. 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 Pain in mid to upper frontal and posterior ribs. TECHNIQUE: AP and oblique right ribs and PA chest COMPARISON: 11/11/2024 chest x-ray RESULT: Right ribs appear intact. Lungs and pleura appear clear. Heart does not appear enlarged. DIVISION OF RADIOLOGY Provider, [facility] - 07/16/2025 * * *Final Report* * * DATE OF EXAM: Jul 16 2025 8:48AM WOX [id number] - XR RIB/CHST 3V AP RIB/OBL/CHST R / PROCEDURE REASON: Right-sided chest pain * * * * Physician Interpretation * * * * HISTORY: Right-sided chest pain Right sided rib pain after recent fall. Pain in mid to upper frontal and posterior ribs. TECHNIQUE: AP and oblique right ribs and PA chest COMPARISON: 11/11/2024 chest x-ray RESULT: Right ribs appear intact. Lungs and pleura appear clear. Heart does not appear enlarged. IMPRESSION IMPRESSION: No right rib fracture is noted. 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: [employer] Transcribe Date/Time: Jul 16 2025 9:07A Dictated by : PANCHO SCHMIDT MD This examination was interpreted and the report reviewed and electronically signed by: PANCHO SCHMIDT MD on Jul 16 2025 9:10AM EST [facility] Radiology Study observation (narrative) Armaan Cruz XR Ribs - right Views and est PAOrdered By: [facility] Provider on 07-16-2025 [facility] CNPHerminia 06-16-2025 CNPN Telephone (AGCARDPOB ) ----- MARTHA VENEGAS ([id number]) 1970 F Date Time Provider Department 06/16/25 BELÉN ALCALAKSANDROVICHAGCARDPOB During your visit today, we recorded the following information about you: Norma Nieto 06/18/2025 11:25 AM Addendum Patient is scheduled for Loop Recorder Removal on 07/[address] lAcala. The hospital will call the day before between 2-5pm with your arrival time. You should not eat or drink after midnight the night before the procedure. It is a same day procedure but you will need a bus van driver when released from the hospital. You should continue to take medications as prescribed the morning of the procedure with just a sip of water. Please hold Januvia for 2 days prior. Left message for Martha Venegas to call back and confirm date AND instructions Norma Nieto Office use: Allergies As of Date: 06/16/2025 Noted Allergy Reaction FISH CONTAINING PRODUCTS 04/29/2019 4 - Hives 7 - Swelling IODINE 08/14/2024 16 - Unknown SHELLFISH DERIVED 08/14/2024 14 - Other: See Comments TETANUS VACCINES AND TOXOID 04/30/2009 Comments: Local Reaction Date Reviewed: 06/01/2025 Reviewed by: Vidhya Rich PA-C - Fully Assessed Reason for Visit: Preparations For Procedures [899] Prescriptions as of 06/18/2025 - hydroCHLOROthiazide 25 mg tablet TAKE 1 TABLET BY MOUTH DAILY - SITagliptin phosphate (JANUVIA) 100 mg tablet Take 1 tablet by mouth once daily. - atorvastatin (LIPITOR) 40 mg tablet Take 1 tablet by mouth once daily. - amLODIPine (NORVASC) 10 mg tablet Take 1 tablet by mouth once daily. - clopidogrel (PLAVIX) 75 mg tablet Take 1 tablet by mouth once daily. - fexofenadine (HEATHER) 180 mg tablet Take 1 tablet by mouth once daily as needed. - fluticasone (FLONASE) 50 mcg/actuation nasal spray Use 2 sprays in each nostril once daily. - levothyroxine (LEVOXYL) 50 mcg tablet Take 1 tablet by mouth once daily. Take on empty stomach. For Thyroid - losartan (COZAAR) 100 mg tablet Take 1 tablet by mouth once daily. - metFORMIN (GLUCOPHAGE) 500 mg tablet Take 2 tablets by mouth two times a day with meals. - metoprolol succinate ER (TOPROL XL) 25 mg 24 hr tablet Take 1 tablet by mouth once daily. - EPINEPHrine (EPIPEN) 0.3 mg/0.3 mL auto-injector Inject 0.3 mL intramuscularly as needed. - docosanol (ABREVA) 10 % crea Apply to affected area five times a day. - blood sugar diagnostic (BLOOD GLUCOSE TEST) [...] once daily Problem List As Of Date 06/16/2025 Noted Resolved CALCANEAL SPUR [M77.30] 09/22/2008 Primary [...] of implantable loop recor* Encounter Status:Closed by NORMA NIETO on 06/18/25 [facility] CNOVon 06-01-2025 CNOV Office Visit (DERMST ) ----- MARTHA VENEGAS ([id number]) 1970 F Date Time Provider Department 06/01/25 10:40 AM VIDHYA RICH During your visit today, we recorded the following information about you: Vidhya Rich PA-C 06/01/2025 2:19 PM Signed NEW PATIENT NI in Dermatology: Visit date not found Chief Complaint: Derm Problem History of Present Ilness: Martha Venegas is a 54 year old female who presents today for a focused skin examination. 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 Believes it could be from a potential enzyme that is used in the foods. 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 Pertinent History: History of skin cancer: No History of atypical nevi: No History of immunosuppression/organ transplant: No , planning , or ? No Pertinent Family medical history: History of melanoma: No History of non melanoma skin cancer: No Past Medical History is reviewed. Medication List is reviewed. ROS: Skin as above. Physical Exam: The patient is a pleasant female in no apparent distress. Alert and oriented x 3. A skin exam performed of the lips is significant for: Left Lower Vermilion Lip, Left Upper Vermilion Lip, Mid Lower Vermilion Lip, Mid Upper Vermilion Lip, Right Lower Vermilion Lip, Right Upper Vermilion Lip Resolved on exam today. Pictures shown from patients phone showed hyperpigmented and erythematous papules on upper and lower lips. Assessment and Plan: CRACKED LIPS Related Procedures CONSULT TO DERMATOLOGY OTHER ALLERGIC CONTACT DERMATITIS Left Lower Vermilion Lip, Left Upper Vermilion Lip, Mid Lower Vermilion Lip, Mid Upper Vermilion Lip, Right Lower Vermilion Lip, Right Upper Vermilion Lip Discussed treatment options. 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 Continue Heather as needed for flares. OTC hydrocortisone cream twice daily as needed for flares. Recommend Patch testing to find out potential cause of dermatitis. Patch Testing Consult - Left Lower Vermilion Lip, Left Upper Vermilion Lip, Mid Lower Vermilion Lip, Mid Upper Vermilion Lip, Right Lower Vermilion Lip, Right Upper Vermilion Lip Follow up: patch testing consult Intake completed by Danette Bossone, BENEFITS MANAGER I agree with the Chief Complaint, ROS, and Past Histories independently gathered by the clinical network and threat support specialist and the remaining scribed note accurately describes my personal service to the patient. Vidhya Rich PA-C Referring Provider: ELIZABETH PEREIRA [[id number]] Allergies As of Date: 06/01/2025 Noted Allergy Reaction FISH CONTAINING PRODUCTS 04/29/2019 4 - Hives 7 - Swelling IODINE 08/14/2024 16 - Unknown SHELLFISH DERIVED 08/14/2024 14 - Other: See Comments TETANUS VACCINES AND TOXOID 04/30/2009 Comments: Local Reaction Date Reviewed: 06/01/2025 Reviewed by: Vidhya Rich PA-C - Fully Assessed Reason for Visit: Derm Problem [33] Primary Visit Diagnosis:Other allergic contact dermatitis [L23.89] Other Visit Diagnosis:Cracked lips [K13.0] Order(s):CONSULT TO DERMATOLOGY [9006] Order #: [id number]: [facility] [7852650] Order #: [id number]: 1 FUTURE Prescriptions as of 06/01/2025 - SITagliptin phosphate (JANUVIA) 100 mg tablet Take 1 tablet by mouth once daily. - atorvastatin (LIPITOR) 40 mg tablet Take 1 tablet by mouth once daily. - amLODIPine (NORVASC) 10 mg tablet Take 1 tablet by mouth once daily. - clopidogrel (PLAVIX) 75 mg tablet Take 1 tablet by mouth once daily. - fexofenadine (HEATHER) 180 mg tablet Take 1 tablet by mouth once daily as needed. - fluticasone (FLONASE) 50 mcg/actuation nasal spray Use 2 sprays in each nostril once daily. - levothyroxine (LEVOXYL) 50 mcg tablet Take 1 tablet by mouth once daily. Take on empty stomach. For Thyroid - losartan (COZAAR) 100 mg tablet Take 1 tablet by mouth once daily. - metFORMIN (GLUCOPHAGE) 500 mg tablet Take 2 tablets by mouth two times a day with meals. - metoprolol succinate ER (TOPROL XL) 25 mg 24 hr tablet Take 1 tablet by mouth once daily. - EPINEPHrine (EPIPEN) 0.3 mg/0.3 mL auto-injector Inject 0.3 mL intramuscularly as needed. - docosanol (ABREVA) 10 % crea Apply to affected area five times a day. - hydroCHLOROthiazide 25 mg tablet Take 1 tablet by mouth once daily. - blood sugar diagnostic (BLOOD GLUCOSE TEST) test strip Test blood sugar(s) 2 times daily. Dx: Type 2 DM - Uncontrolled E11 (more content not included)... Normal [facility] CNCOon 05-25-2025 CNCO Letter Text Normal [facility] OCT MACULA CIRRUS OU (BOTH E YES)on 05-25-2025 [facility] Radiology Study observation (narrative) Armaan israel [facility] CNOVon 04-27-2025 CNOV Office Visit (FPWADS ) ----- MARTHA VENEGAS ([id number]) 1970 F Date Time Provider Department 04/27/25 1:40 PM VADIM TEIXEIRA During your visit today, we recorded the following information about you: Pulse Blood pressure Weight Height 62/minute 123/84 91 kg 1.626 m Vadim Teixeira APRN.APPLICATION INFRASTRUCTURE ENGINEER 04/27/2025 2:55 PM Signed Patient here for pre-op evaluation for left ear myringotomy and eustachian tube dilation. 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 A1C today is 10.6%, improved from last check which was 12.3%. Taking metformin and januvia. Also requesting [place] paperwork for her daughter to be able to take days off work to get her to and from medical appointments because she can only drive short distances due to her eye condition. Have you or anyone in your family ever had a problem with anesthesia?No Could you be ?No Do you have a cough/bronchitis/sinusiti s? No Have you had or have a asthma/hayfever/pneumonia ?No Do you have a cold?No Have you had any difficulties breathing/SOB or emphysema?No Do you have any bleeding tendencies?No Have you had anemia or any other blood disease or blood transfusion?Yes, as a child, no transfusions Do you have a heart murmur or irregular heart beat?No Have you ever had a heart attack?No Have you ever had angina or pain in your chest? No Do you have any pain? No Have you ever had high blood pressure/low blood pressure?Yes, currently treated Do you have any contagious disease or infection/HIV?No Do you have diabetes/low blood sugar? Yes Have you ever had thyroid problems? Yes Have you ever had a stroke? Yes, 2019 Have you ever had epilepsy or had seizures?No Have you ever had kidney problems?No Have you ever had liver problems/jaundice/hepatit is?No Have you ever had any gallbladder disease?No Do you drink alcoholic beverages? If so how much?Yes, rare Do you smoke, or did you ever? If so, how much? For how long?No Do you use social drugs?No ADVANCED DIRECTIVES: Educated/Pamphlet Given:Yes Instructed to bring copy:Yes Do you have Health Care Surrogate?No Do you wish to select one? No Living will?(if yes, obtain copy and place on chart) No Are you an organ donor? No PAST MEDICAL HISTORY Diagnosis Date Asthma (HCC) [...] vaginal XTRNL PT ACTIV ECG TRANSMIS W/GABRIELE Allergies: ALLERGIES Allergen Reactions Fish Containing Pro* Hives, Swelling Iodine Unknown Shellfish Derived Other: See Comments Tetanus Vaccines An* Local Reaction Medications: fexofenadine (HEATHER) 180 mg tablet Take 1 tablet by mouth once daily as needed. losartan (COZAAR) 100 mg tablet take 1 [...] mouth once daily. aspirin, enteric coated (ASPIRIN, ENTERI (more content not included)... Normal [facility] HEMOGLOBIN A1C (POC)on 04-27 HbA1c (Bld) [Mass fraction] 10.6 % Abnormal 4.3 - 5.6 % [facility] Comment on above: Location:[facility], [address] [place] [address], [address] Point of care (POC) Hemoglobin A1c (HGBA1C) testing is intended to assess glucose control and provide a management tool for patients known to have diabetes and their healthcare providers. Target HGBA1C levels may depend on specific clinical circumstances. POC HGBA1C is not intended for use as a diagnostic or screening test; laboratory-based testing should be used for diagnostic purposes. The following information is supplemental and may not be applicable to specific diabetes management situations: The POC device golf caddy provides a normal range of 4.2% to 6.5% for the HGBA1C POC test. However, the [place] [employer] guidelines indicate that patients with HGBA1C in the range of 5.7% to 6.4% are at increased risk for development of diabetes and that intervention by lifestyle modification may be beneficial. A HGBA1C level greater than or equal to 6.5% is considered diagnostic of diabetes, pending confirmatory testing. Use of HGBA1C testing to evaluate glucose control may not be appropriate for patients with hemoglobin variants or other conditions (e.g. anemia) that alter red blood cell lifespan. Interpretation and review of laboratory results Abnormal [facility] Anion gap in Serum or Plasma on 04-24-2025 Anion gap [Moles/Vol] 11 mmol/L 5-15 [facility] Automated blood erythrocyte counton 04-24-2025 RBC (Bld) [#/Vol] 4.53 10*6/uL Normal 4.2-5.4 [facility] Comment on above: Performed By: #### L 100.0500, L500.2500 #### [facility] [address] [place], [address] Automated blood hematocrit ( percentage)on 04-24-2025 Hematocrit (Bld) [Volume fraction] 37.5 % Normal 37-47 [facility] Comment on above: Performed By: #### L 100.0500, L500.2500 #### [facility] [address] [place], [address] BMP - EXTERNALon 04-24-2025 GFR 77 mL/MIN [facility] HCO3 (Bld) [Moles/Vol] 26.9 mmol/L [facility] BUN/creatinine ratioOrdered By: Dandre Melissa on 04-24-2025 Urea nitrogen/Creatinine [Mass ratio] 12.8 mg/mg 08-24 [facility] Basic Metabolic Profile (BMP )on 04-24-2025 BUN/CRE 12.8 RATIO Normal 08-24 [facility] Comment on above: Performed By: #### L 100.0500, L500.2500 #### [facility] [address] [place], [address] CO2 [Moles/Vol] 26.9 mmol/L Normal 21.0-32.0 [facility] Comment on above: Performed By: #### L 100.0500, L500.2500 #### [facility] [address] [place], [address] GAP 11 Normal 5-15 [facility] Comment on above: Performed By: #### L 100.0500, L500.2500 #### [facility] [address] [place], [address] GFR/1.73 sq M.predicted among non-blacks MDRD (S/P/Bld) [Vol rate/Area] 77 mL/min/{1.73_m2} Normal >60 [facility] Comment on above: Result Comment: mL/m in/1.73m2 CKD-EPI Creatinine Equation (2020) Performed By: #### L 100.0500, L500.2500 #### [facility] [address] [place], [address] Potassium [Moles/Vol] 4.4 mmol/L Normal 3.3-5.1 [facility] Comment on above: Result Comment: Hemo lysis present, Results??could be affected. ?? Performed By: #### L 100.0500, L500.2500 #### [facility] [address] [place], [address] CBCon 04-24-2025 Hemoglobin (Bld) [Mass/Vol] 12 g/dL [facility] MCHC (RBC) [Mass/Vol] 32 g/dL 30 - 3 6 g/dL [facility] RDW-SD 42.9 [facility] CBC-Complete Blood Cnt No Di ffon 04-24-2025 Hemoglobin (Bld) [Mass/Vol] 12.0 g/dL Normal 12.0-15.0 [facility] Comment on above: Performed By: #### L 100.0500, L500.2500 #### [facility] [address] [place], [address] MCHC (RBC) [Mass/Vol] 32.0 g/dL Normal 32-36 [facility] Comment on above: Performed By: #### L 100.0500, L500.2500 #### [facility] [address] [place], [address] RDW SD 42.9 fl Normal 35.1-43.9 [facility] Comment on above: Performed By: #### L 100.0500, L500.2500 #### [facility] [address] [place], [address] CNPNon 04-24-2025 CNPN Telephone (AMADA) ----- MARTHA VENEGAS ([id number]) 1970 F Date Time Provider Department 04/24/25 ISABEL DAVENPORT During your visit today, we recorded the following information about you: Lorene Jasso LPN 04/24/2025 2:23 PM Signed Received 04/24/2025 from [facility]. Placed in provider's inbox for review. Route to [place] for scanning. Allergies As of Date: 04/24/2025 Noted Allergy Reaction FISH CONTAINING PRODUCTS 04/29/2019 4 - Hives 7 - Swelling IODINE 08/14/2024 16 - Unknown SHELLFISH DERIVED 08/14/2024 14 - Other: See Comments TETANUS VACCINES AND TOXOID 04/30/2009 Comments: Local Reaction Date Reviewed: 04/21/2025 Reviewed by: Tayler Villanueva MA - Fully Assessed Reason for Visit: Received Outside Medical Records [6973] Cmt: [facility] Copy of labs ordered by Dr Melissa 04/24/2025 Order(s):BMP - EXTERNAL [[id number]] Order #: [id number] [facility] [[id number]] Order #: [id number] Prescriptions as of 04/28/2025 - SITagliptin phosphate (JANUVIA) 100 mg tablet Take 1 tablet by mouth once daily. - fexofenadine (HEATHER) 180 mg tablet Take 1 tablet by mouth once daily as needed. - losartan (COZAAR) 100 mg tablet take 1 tablet by mouth once daily - clopidogrel (PLAVIX) 75 mg tablet take 1 tablet by mouth once daily - EPINEPHrine (EPIPEN) 0.3 mg/0.3 mL auto-injector Inject 0.3 mL intramuscularly as needed. - fluticasone (FLONASE) 50 mcg/actuation nasal spray instill 1 TO 2 sprays into each nostril once daily if needed - docosanol (ABREVA) 10 % crea Apply [...] once daily Problem List As Of Date 04/24/2025 Noted Resolved CALCANEAL SPUR [M77.30] 09/22/2008 Primary [...] recor* Encounter Status:Closed by LORENE JASSO on 6/24/25 Normal [facility] Carbon dioxide, total [Moles /volume] in Central venous bloodOrdered By: Dandre Melissa on 04-24-2025 CO2 [Moles/Vol] 26.9 mmol/L 21.0-32.0 [facility] Chloride assayon 04-24-2025 Chloride [Moles/Vol] 98 mmol/L Normal 98-108 [facility] Comment on above: Performed By: #### L 100.0500, L500.2500 #### [facility] [address] [place], [place], [address] Erythrocyte distribution wid th ratioon 04-24-2025 Erythrocyte distribution width (RBC) [Ratio] 14.2 % Normal 11.6-14.6 [facility] Comment on above: Performed By: #### L 100.0500, L500.2500 #### [facility] [address] [place], [place], [address] Erythrocyte distribution wid th standard deviationOrdered By: Dandre Melissa on 04-24-2025 Erythrocyte distribution width (RBC) [Ratio] 42.9 fl 35.1-43.9 [facility] Glomerular filtration rate ( GFR) estimation/1.73 sq m using serum, plasma, or whole bOrdered By: Dandre Melissa on 04-24-2025 GFR/1.73 sq M.predicted among non-blacks MDRD (S/P/Bld) [Vol rate/Area] 77 mL/min/{1.73_m2} >60 [facility] Comment on above: mL/min/1.73m2 CKD-EP I Creatinine Equation (2020) Hemoglobin measurementOrdere d By: Dandre Melissa on 04-24-2025 Hemoglobin (Bld) [Mass/Vol] 12.0 g/dL 12.0-15.0 [facility] MCV (mean corpuscular volume ) determinationon 04-24-2025 MCV (RBC) [Entitic vol] 82.8 fL Normal 81-[address] [facility] Comment on above: Performed By: #### L 100.0500, L500.2500 #### [facility] [address] [place], [address] Mean corpuscular hemoglobin (MCH) determinationon 04-24-2025 MCH (RBC) [Entitic mass] 26.5 pG Low 27.0-32.0 [facility] Comment on above: Performed By: #### L 100.0500, L500.2500 #### [facility] [address] [place], [address] Mean corpuscular hemoglobin concentration (MCHC) determinationOrdered By: Dnadre Melissa on 04-24-2025 MCHC (RBC) [Mass/Vol] 32.0 g/dL 32-36 [facility] Mean platelet volume determi nationon 04-24-2025 Platelet mean volume (Bld) [Entitic vol] 10.9 fL Normal 6.2-12.0 [facility] Comment on above: Performed By: #### L 100.0500, L500.2500 #### [facility] [address] [place], [place], [id number] No Panel Informationon 04-24 Interpretation and review of laboratory results Abnormal [facility] Platelet counton 04-24-2025 Platelets (Bld) [#/Vol] 325 10*3/uL Normal 150-450 [facility] Comment on above: Performed By: #### L 100.0500, L500.2500 #### [facility] [address] [place], [address] Potassium measurement (mass/ volume)Ordered By: Dandre Melissa on 04-24-2025 Potassium (Unsp spec) [Mass/Vol] 4.4 mmol/L 3.3-5.1 [facility] Comment on above: Hemolysis present, R esults could be affected. Serum creatinine measurement (mass/volume)on 04-24-2025 Creatinine [Mass/Vol] 0.88 mg/dL Normal 0.70-1.20 [facility] Comment on above: Performed By: #### L 100.0500, L500.2500 #### [facility] [address] [place], [address] Serum glucose measurement (m ass/volume)on 04-24-2025 Glucose [Mass/Vol] 282 mg/dL High 70-99 [facility] Comment on above: Performed By: #### L 100.0500, L500.2500 #### [facility] [address] [place], [address] Serum or plasma calcium loulou urement (mass/volume)on 04-24-2025 Calcium [Mass/Vol] 9.4 mg/dL Normal 7.6-11.0 [facility] Comment on above: Performed By: #### L 100.0500, L500.2500 #### [facility] [address] [place], [address] Serum or plasma urea nitroge n measurement (mass/volume)on 04-24-2025 Urea nitrogen [Mass/Vol] 11 mg/dL Normal 4-19 [facility] Comment on above: Performed By: #### L 100.0500, L500.2500 #### [facility] [address] [place], [address] Sodium levelon 04-24-2025 Sodium [Moles/Vol] 136 mmol/L Normal 133-145 [facility] Comment on above: Performed By: #### L 100.0500, L500.2500 #### [facility] [address] [place], [address] White blood cell (WBC) count on 04-24-2025 WBC (Bld) [#/Vol] 11.6 10*3/uL High 4.4-11.0 [facility] Comment on above: Performed By: #### L 100.0500, L500.2500 #### [facility] [address] [place], [address] CNOVon 04-21-2025 CNOV Office Visit (ALLEST ) ----- MARTHA VENEGAS ([id number]) 1970 F Date Time Provider Department 04/21/25 [...] last visit, she notes that she took heather 1-2 tablets for 1 week after we [...] if n (more content not included)... Normal [facility]JAILENELooxiiRUTHIE[facility] ----- MARTHA VENEGAS ([id number]) 1970 F Date Time Provider Department 04/21/25 ISABEL DAVENPORT During your visit today, we recorded the following information about you: Anastasia Ulloa LPN 04/21/2025 9:09 AM Signed Received EKG report from [facility]. Placed in provider's inbox for review. Route [...] Reason for Visit: Received Outside Medical Records [1826] Cmt: [facility] E[facility] Prescriptions as of 04/21/2025 - losartan (COZAAR) 100 mg tablet take 1 tablet by mouth once daily - clopidogrel (PLAVIX) 75 mg tablet take 1 tablet by mouth once daily - EPINEPHrine (EPIPEN) 0.3 mg/0.3 mL auto-injector Inject 0.3 mL intramuscularly as needed. - fexofenadine (HEATHER) 180 mg tablet Take 1 tablet daily. [...] Status:Closed by ANASTASIA ULLOA on 04/21/25 Normal [facility] Electrocardiogram reportOrde red By: Yoav Navas on 04-21-2025 EKG study [facility] [address] [place] [address] 12 Lead EKG 04/20/25 0754 MR#: [id number] Acct: [id number] Name: MARTHA VENEGAS Rep #:[id number] : 1970 54 From: Yoav Navas MD Attending Dr: Dr. Dandre Melissa MD Status: REG CLI Ordering Dr: Dandre Melissa MD D ate: 04/20/25 Location: [facility] Sex: F AA Admitted: Test Reason : PRE OP Blood Pressure : */* mmHG Vent. Rate : 68 BPM Atrial Rate : 68 BPM P-R Int : 144 ms QRS Dur : 82 ms QT Int : 408 ms P-R-T Axes : 26 0 22 degrees QTcB Int : 433 ms Normal sinus rhythm Normal ECG Confirmed by ELOISE MACHADO, YOAV ([id number]), index editor MARLEN DOS SANTOS ([id number]) on 58:23:28 AM Referred By: Dandre Melissa Confirmed By: YOAV NAVAS MD 04/21/25 0823 Date _ Yoav Navas MD CC: Dr. Dandre Melissa MD; Dr. Jaspreet Davenport MD ~ Signed [facility] Other Phone: 12 Lead EKGon 04-20-2025 12 Lead EKG [facility] [address] [place] [address] 12 Lead EKG 04/20/25 0754 MR#: [id number] Acct: [id number] Name: MARTHA VENEGAS Rep #: [id number] : 1970 54 From: Yoav Navas MD Attending Dr: Dr. Dandre Melissa MD Statu s: REG CLI Ordering Dr: Dandre Melissa MD Date: 5 Location: [facility] Sex: F AA Admitted: Test Reason : PRE OP Blood Pressure : */* mmHG Vent. Rate : 68 BPM Atrial Rate : 68 BPM P-R Int : 144 ms QRS Dur : 82 ms QT Int : 408 ms P-R-T Axes : 26 0 22 degrees QTcB Int : 433 ms Normal sinus rhythm Normal ECG Confirmed by ELOISE MACHADO, YOAV ([id number]), index editor MARLEN DOS SANTOS ([id number]) on 04/21/2025 8:23:28 AM Referred By: Dandre Melissa Confirmed By: YOAV NAVAS MD 04/21/25 0823 Date Yoav Navas MD CC: Dr. Dandre Melissa MD; Dr. Jaspreet Davenport MD Signed Normal [facility] 04-10-2025 [facility] Telephone (AGCARDPOB ) ----- MARTHA VENEGAS ([id number]) 1970 F Date Time Provider Department 04/10/25 PHYLLIS BERNARDO During your visit today, we recorded the following information about you: Duane Norris 04/10/2025 11:39 AM Signed Cardiac Clearance received from [facility] for Left myringotomy with T-Tube [...] Fully Assessed Reason for Visit: Cardiac Clearance [4105] Prescriptions as of 04/10/2025 - losartan (COZAAR) 100 mg tablet take 1 tablet by mouth once daily - clopidogrel (PLAVIX) 75 mg tablet take 1 tablet by mouth once daily - EPINEPHrine (EPIPEN) 0.3 mg/0.3 mL auto-injector Inject 0.3 mL intramuscularly as needed. - fexofenadine (HEATHER) 180 mg tablet Take 1 tablet daily. [...] Encounter Status:Closed by DUANE NORRIS on 04/10/25 [facility] Duane 04-09-2025 [facility] Telephone (FPWADS) ----- MARTHA VENEGAS ([id number]) 1970 F Date Time Provider Department 04/09/25 ISABEL DAVENPORT During your visit today, we recorded the following information about you: Anastasia Ulloa LPN 04/09/2025 11:25 AM Signed Received imaging report for sinus/ facial bone from [facility]. Placed in provider's inbox for review. Route [...] Reason for Visit: Received Outside Medical Records [3574] Cmt: [facility] imaging Prescriptions as of 04/09/2025 - losartan (COZAAR) 100 mg tablet take 1 tablet by mouth once daily - clopidogrel (PLAVIX) 75 mg tablet take 1 tablet by mouth once daily - EPINEPHrine (EPIPEN) 0.3 mg/0.3 mL auto-injector Inject 0.3 mL intramuscularly as needed. - fexofenadine (HEATHER) 180 mg tablet Take 1 tablet daily. [...] Status:Closed by ANASTASIA ULLOA on 04/09/25 Normal [facility] Sinus/Facial Boneon 04-08-20 Sinus/Facial Bone [facility] [address] [place], [place] [id number] Sinus/Facial Bone MR#: [id number] Acct: [id number] Name: MARTHA VENEGAS Rep #: [id number] : 1970 F 54 From: Alan Duncan MD PCP: Dr. Jaspreet Davenport MD Status: REG CLI Study: Sinus/Facial Bone Date of Exam: 04/08/25 Exam# [id number] Ordering Dr: Dandre Melissa MD PROCEDURE: SINUS/FACIAL [...] 3. Other findings as noted. Reading Location: [id number] CC: Dr. Dandre Melissa MD; Dr. Jaspreet Davenport MD 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: Signed Normal [facility] 03-13-2025 [facility] Telephone (FPWADS) ----- THEOMARTHA L ([id number]) 1970 F Date Time Provider Department 03/13/25 ISABEL DAVENPORT During your visit today, we recorded the following information about you: Shelia Terrazas MA 03/13/2025 11:41 AM Signed [facility] paperwork faxed today. Allergies As of [...] 0.3 mL intramuscularly as needed. - fexofenadine (HEATHER) 180 mg tablet Take 1 tablet daily. [...] Status:Closed by SHELIA TERRAZAS on 03/13/25 Normal [facility] ANES POSTPROC EVALon 025 ANES POSTPROC EVAL HNO ID: [id number] Author: SUNITHA MOYA APRN.CRNA Service: Anesthesiology Author Type: Nurse Stretcher Helper Type: Anesthesia Postprocedure Evaluation Filed: 03/09/2025 09:26 [...] Anesthesia Observations No Documentation SIGNATURE: Sunitha Moya APRN.HEALTH SAFETY AND ENVIRONMENT MANAGER PATIENT NAME: Martha Venegas DATE: March 09, 2025 TIME: 9:25 AM CSN: [id number] Normal [facility] ANES PRE-OPon 03-09-2025 ANES PRE-OP HNO ID: [id number] Author: SUNITHA MOYA APRN.CRNA Service: Anesthesiology Author Type: Nurse Stretcher Helper Type: Anesthesia Preprocedure Evaluation Filed: 03/09/2025 09:00 [...] (HCC) Cardiovascular (+) PFO (patent foramen ovale) (HCC) I - PHYSICAL EVALUATION AIRWAY Patient intubated: [...] and consent discussed: yes. Patient / Responsible Green Party agrees to proceed: yes Patient / Surrogate [...] Inject 0.3 mL intramuscularly as needed. fexofenadine (HEATHER) 180 mg tablet Take 1 tablet daily. [...] 48 hours of Surgery/Procedure. SIGNATURE: Sunitha Moya APRN.CRNA PATIENT NAME: Martha Venegas DATE: March 09, 2025 (more content not included)... 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 Refer to note in patient chart for documentation of history and physical. Last Colonoscopy: none. The patient's first colonoscopy is today. Referring Physician: Vadim Lau (Referring ) Medicines: Monitored Anesthesia Care Complications: No immediate [...] bowel preparation was evaluated using the BBPS (Winner Bowel Preparation Scale) with scores of: Right [...] the patient. Procedure Code(s): --- Professional --- 16233, Colonoscopy, flexible; diagnostic, including (more content not included)... Normal [facility] Flexible sigmoidoscopy study on 03-09-2025 [facility] Gastroenterology Gastrointestinal Endoscopy Patient Name: Martha Venegas Procedure Date: 03/09/2025 8:41 AM Date of : 1970 Admit Type: Outpatient Age: 54 Room: [place] [address] Gender: Female Note Status: Finalized Attending MD: Jemima Winn MD, [id number] Procedure: Colonoscopy Indications: Positive fecal immunochemical test [...] bowel preparation was evaluated using the BBPS (Winner Bowel Preparation Scale) with scores of: Right [...] (more content not included)... PROVATION [facility] Radiology Study [facility]narrative) [facility] HISTORY PHYSICALon HISTORY PHYSICAL HNO ID: [id number] Author: JEMIMA WINN MD Service: Gastroenterology Author [...] Inject 0.3 mL intramuscularly as needed. fexofenadine (HEATHER) 180 mg tablet Take 1 tablet daily. [...] March 09, 2025 TIME: 8:40 AM Normal [facility] NURSING PROGon 03-09-2025 NURSING PROG HNO ID: [id number] Author: CHARO RAVI RN Service: Nursing Author [...] Ferrera RN In Department: AMBULATORY SURGERY Normal [facility] 03-03-2025 [facility] Telephone (BetterLesson) ----- MARTHA VENEGAS ([id number]) 1970 F Date Time Provider Department 03/03/25 ISABEL DAVENPORT During your visit today, we recorded the following information about you: Byron Waddellmauro Luann 03/03/2025 9:03 AM Signed Martha is calling Isabel Davenport MD today to advise she is having a procedure on 03/09/2025 , the FMLA paperwork will be coming to request to be off starting 03/07/2025 and 03/08/2025 which are her colonoscopy prep dates as the patient is already off on 03/09/2025. This is just a fyi that this paperwork with be coming from [employer] for these two FMLA dates Patient has been identified by name and birthdate. Duration of symptoms: N/A Person calling: self Call patient at: on cell [phone] (home) [phone] (cell) Was an appointment scheduled: No Closing statement: Results or non-symptom based questions: Thank you for calling [facility], your call will be returned within the next business day. [facility] Anastasia Ulloa LPN 03/03/2025 10:56 AM Signed Noted, will await receipt of fax Anastasia Ulloa LPN 03/04/2025 1:46 PM Signed [facility]. Placed in pcp inbox for review. Isabel Davenport MD 03/13/2025 8:49 AM Signed FMLA paperwork filled out for absence -03/09/2025. In outbasket. Please fax. Isabel Davenport MD [...] 0.3 mL intramuscularly as needed. - fexofenadine (HEATHER) 180 mg tablet Take 1 tablet daily. [...] [I63.9] 07/06 (more content not included)... Normal [facility] Telephone (ASWSTR) ----- MARTHA VENEGAS ([id number]) 1970 F Date Time Provider Department 03/03/25 KEATON WADE During your visit today, we recorded the following information about you: Yanet Meyer RN 03/03/2025 8:[address] Wade, This pt. needs rescheduled under [facility]. Please reach out to pt and assist in rescheduling. Thank you. Yanet Meyer RN [facility] 03/03/2025 9:32 AM Addendum This patient has been contacted and rescheduled to [facility] Allergies As of Date: 03/03/2025 Noted Allergy [...] 0.3 mL intramuscularly as needed. - fexofenadine (HEATHER) 180 mg tablet Take 1 tablet daily. [...] Status:Closed by OFELIA JOE on 03/03/25 Normal [facility] THAD SCREENING W TOMOon 02-27 THAD SCREENING W CAMILLA * * *Final Report* * * DATE OF EXAM: Feb 27 2025 7:55AM [facility] 0582 - THAD SCREENING W CAMILLA / PROCEDURE REASON: Screening mammogram for breast cancer * * * * Physician Interpretation * * * * RESULT: [facility] [place] [address] [place] [id number] #[id number] [facility] SCREENING W CAMILLA HISTORY: 54 year-old patient [...] has dense breast tissue. Interpreting Radiologist: Chika Posadas M.D. 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 - fexofenadine (HEATHER) 180 mg tablet Take 1 tablet daily. [...] Encounter Status:Closed by CESIA FLORES on 02/23/25 [facility] CNPN Telephone (AGCARDPOB ) ----- MARTHA VENEGAS ([id number]) 1970 F Date Time Provider Department 02/23/25 [...] before the procedure. 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 Informed of instructions as stated above. Patient verbalized understanding. Colleen Velazco RN 02/23/2025 3:04 PM Signed Pt's name has been added to [facility] procedure board. Colleen Herrera RN Katie Fernandez [...] 0.3 mL intramuscularly as needed. - fexofenadine (HEATHER) 180 mg tablet Take 1 tablet daily. [...] 04/08/2024 Statu (more content not included)... Normal [facility] CNOVon 02-16-2025 CN Office Visit ([place]) ----- MARTHA VENEGAS ([id number]) 1970 F Date Time Provider Department 02/16/25 10:00 AM PHYLLIS BERNARDOSAIRA During your visit today, we recorded the [...] have any questions or concerns Phyllis Bernardo APRN.CNP 02/16/2025 10:07 AM Signed Chief Complaint: Patient [...] Allergies. 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 fexofenadine (HEATHER) 180 mg tablet Take 1 tablet daily. [...] - Uncontrolle (more content not included)... Normal [facility] [place] 02-16-2025 [facility] Telephone (CARDAGHWW ) ----- MARTHA VENEGAS ([id number]) 1970 F Date Time Provider Department 02/16/25 PHYLLIS BERNARDOWFranklin During your visit today, we recorded the following information about you: Phyllis Bernardo APRN.APPLICATION INFRASTRUCTURE ENGINEER 02/16/2025 10:03 AM Signed This patient has [...] 0.3 mL intramuscularly as needed. - fexofenadine (HEATHER) 180 mg tablet Take 1 tablet daily. [...] Status:Closed by PHYLLIS BERNARDO on 02/23/25 Normal [facility] Hemoccult Stl Ql IAon 2024 Lower GI hemoglobin IA Ql (Stl) Positive Abnormal Negative [facility] Comment on above: Order Comment: Speci men Type: STOOL SPECIMENOrdering Facility: [facility] Address: [address] [place] [address] Performed By: #### 2 9771-3 ####[facility] LABCLIA [id number] [place] [address] [place] 02-03-2025 [facility] Telephone (FPWADS) ----- MARTHA VENEGAS ([id number]) 1970 F Date Time Provider Department 02/03/25 ISABEL DAVENPORT During your visit today, we recorded the following information about you: Lorene Jasso LPN 02/03/2025 3:51 PM Signed Received 02/03/2025 from [employer] . Placed in provider's inbox for review. Route to [place] for faxing. Lorene Jasso LPN 02/10/2025 10:35 AM Signed Patient can not remember the dates. She is going to email her the company to get dates she was off. Isabel Davenport MD 02/12/2025 9:24 AM Signed FMLA paperwork filled out with retrospective dates off [...] Reason for Visit: Received Outside Medical Records [3578] Cmt: [employer] [facility] Certification of Health Care provider for employees serious health condition 02/03/2025 Prescriptions as of 02/12/2025 - losartan (COZAAR) 100 mg tablet take 1 tablet by mouth once daily - clopidogrel (PLAVIX) 75 mg tablet take 1 tablet by mouth once daily - EPINEPHrine (EPIPEN) 0.3 mg/0.3 mL auto-injector Inject 0.3 mL intramuscularly as needed. - fexofenadine (HEATHER) 180 mg tablet Take 1 tablet daily. [...] Encounter Status:Closed by LORENE JASSO on 02/03/[address] 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 fexofenadine (HEATHER) 180 mg tablet Take 1 tablet daily. [...] once daily (more content not included)... 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 Paperwork will be completed and returned (K13.70) Oral lesion Comment: Intermittent, seeping. Description does not sound like HSV, Consider food reaction Plan: Will continue to monitor will try topical abreva for next outbreak. Requested Prescript (more content not included)... Normal [facility] CBC panel Auto (Bld)on 01-02 Erythrocyte distribution width (RBC) [Ratio] 14.6 % Normal 11.5-15.0 [facility] Comment on above: Order Comment: Speci men Type: BLOOD SPECIMENOrdering Facility: [facility] Address: [address] [place] [address] Performed By: #### 5 8410-2 ####[facility] [id number] [place] [id number] [place] Hematocrit (Bld) [Volume fraction] 39.2 % Normal 36.0-46.0 [facility] Comment on above: Order Comment: Speci men Type: BLOOD SPECIMENOrdering Facility: [facility] Address: [address] [place] [address] Performed By: #### 5 8410-2 ####[facility] [id number] [place] [address] [place] Hemoglobin (Bld) [Mass/Vol] 12.3 g/dL Normal 11.5-15.5 [facility] Comment on above: Order Comment: Speci men Type: BLOOD SPECIMENOrdering Facility: [facility] Address: [address] [place] [address] Performed By: #### 5 8410-2 ####[facility] [id number] [place] [address] [place] MCH (RBC) [Entitic mass] 25.9 pg Low 26.0-34.0 [facility] Comment on above: Order Comment: Speci men Type: BLOOD SPECIMENOrdering Facility: [facility] Address: [address] [place] [address] Performed By: #### 5 8410-2 ####[facility]SAUNCL[facility] [id number] [place] [address] [place] MCHC (RBC) [Mass/Vol] 31.4 g/dL Normal 30.5-36.0 [facility] Comment on above: Order Comment: Speci men Type: BLOOD SPECIMENOrdering Facility: [facility] Address: [address] [place] [address] Performed By: #### 5 8410-2 ####[facility] [id number] [place] [address] [place] MCV (RBC) [Entitic vol] 82.5 fL Normal 80.0-100.0 C [facility] Comment on above: Order Comment: Speci men Type: BLOOD SPECIMENOrdering Facility: [facility] Address: [address] [place] [address] Performed By: #### 5 8410-2 ####[facility] [id number] [place] [address] [place] Nucleated RBC (Bld) [#/Vol] 10*3/uL Normal <0.01 [facility] Comment on above: Order Comment: Speci men Type: BLOOD SPECIMENOrdering Facility: [facility] Address: [address] [place] [address] Performed By: #### 5 8410-2 ####[facility] [id number] [place] [address] [place] Platelet mean volume (Bld) [Entitic vol] 11.0 fL Normal 9.0-12.7 [facility] Comment on above: Order Comment: Speci men Type: BLOOD SPECIMENOrdering Facility: [facility] Address: [address] [place] [address] Performed By: #### 5 8410-2 ####[facility] [id number] [place] [address] [place] Platelets (Bld) [#/Vol] 289 10*3/uL Normal 150-400 [facility] Comment on above: Order Comment: Speci men Type: BLOOD SPECIMENOrdering Facility: [facility] Address: [address] [place] [address] Performed By: #### 5 8410-2 ####[facility] NASSAUDAHIANALIA [id number] [place] [address] [place] RBC (Bld) [#/Vol] 4.75 10*6/uL Normal 3.90-5.20 [facility] Comment on above: Order Comment: Speci men Type: BLOOD SPECIMENOrdering Facility: [facility] Address: [address] [place] [address] Performed By: #### 5 8410-2 ####[facility] NASSAUNCLIA [id number] [place] [address] [place] WBC (Bld) [#/Vol] 12.61 10*3/uL High 3.70-11.00 [facility] Comment on above: Order Comment: Speci men Type: BLOOD SPECIMENOrdering Facility: [facility] Address: [address] [place] [address] Performed By: #### 5 8410-2 ####[facility] [id number] [place] [address] [place] HbA1c (Bld)on 01-02-2025 Average glucose Estimated from glycated hemoglobin (Bld) [Mass/Vol] 306 mg/dL Normal [facility] Comment on above: Order Comment: Speci men Type: BLOOD SPECIMENOrdering Facility: [facility] Address: [address] [place] [address] Result Comment: eAG: (Estimated average glucose) is a calculated value from HgbA1c and is contact center representative of the average blood glucose level in the last 2-3 month period. Performed By: #### 5 5454-3 ####[facility] LABCLIA [id number] [place] [address] [place] [facility] HbA1c (Bld) [Mass fraction] 12.3 % High 4.3-5.6 [facility] Comment on above: Order Comment: Speci men Type: BLOOD SPECIMENOrdering Facility: [facility] Address: [address] [place] [address] Result Comment: Amer ican Diabetes Association guidelines indicate that patients with HgbA1c in the range 5.7-6.4% are at increased risk for development of diabetes, and intervention by lifestyle modification may be beneficial. HgbA1c greater or equal to 6.5% is considered diagnostic of diabetes. Performed By: #### 5 5454-3 ####[facility] LABCLIA [id number] [place] [id number] [place] Lipid 1996 panelon 5 Cholesterol [Mass/Vol] 182 mg/dL Normal <200 [facility] Comment on above: Order Comment: Speci men Type: BLOOD SPECIMENOrdering Facility: [facility] Address: [address] [place] [address] Result Comment: <200 mg/dL, Desirable 200-239 mg/dL, Borderline high >239 mg/dL, High Performed By: #### 2 4331-1 ####[facility]ORY[facility] [id number] [address] [id number] [place] [address] OF [facility] Cholesterol in HDL [Mass/Vol] 49 mg/dL Normal >39 [facility] Comment on above: Order Comment: Speci men Type: BLOOD SPECIMENOrdering Facility: [facility] Address: [address] [place] [address] Result Comment: 40-5 9 mg/dL, Acceptable >59 mg/dL, High: Negative risk factor for coronary heart disease <40 mg/dL, Low: Positive risk factor for coronary heart disease Performed By: #### 2 4331-1 ####[facility]ORATORYCLIA [id number] [address] [id number] [place] [address] Cholesterol in LDL [Mass/Vol] 107 mg/dL High <100 [facility] Comment on above: Order Comment: Speci men Type: BLOOD SPECIMENOrdering Facility: [facility] Address: [address] [place] [address] Result Comment: <100 mg/dL, Optimal 100-129 mg/dL, Near optimal/above optimal 130-159 mg/dL, Borderline high 160-189 mg/dL, High >189 mg/dL, Very high Secondary prevention optimal LDL Cholesterol levels are recommended to be < 70 mg/dL Performed By: #### 2 4331-1 ####[facility]ORY[facility] [id number] [address] [id number] [address] Cholesterol in LDL/Cholesterol in HDL [Mass ratio] 2.18 {ratio} Normal <2.54 [facility] Comment on above: Order Comment: Speci men Type: BLOOD SPECIMENOrdering Facility: [facility] Address: [address] [place] [address] Result Comment: Refrosalba tomce: 1. National Cholesterol Education Program ATP III Guideline At-A-Glance Quick Desk Reference: National Heart, Lung, and Blood [place]. National Institutes of Health. 2001: NIH Publication No. 01-3305. 2. An International Atherosclerosis Society position paper: global recommendations for the management of dyslipidemia: executive summary, Atherosclerosis. 2014: 232(2):410-413. Performed By: #### 2 4331-1 ####[facility] LABORATORYCLIA [id number] [address] [id number] [place] [address] [place] Cholesterol in VLDL [Mass/Vol] 26 mg/dL Normal <30 [facility] Comment on above: Order Comment: Speci men Type: BLOOD SPECIMENOrdering Facility: [facility] Address: [address] [place] [address] Performed By: #### 2 4331-1 ####[facility] LABORATORYCLIA [id number] [address] [id number] [place] [address] [place] Cholesterol non HDL [Mass/Vol] 133 mg/dL High <130 [facility] Comment on above: Order Comment: Speci men Type: BLOOD SPECIMENOrdering Facility: [facility] Address: [address] [place] [address] Result Comment: <130 mg/dL, Optimal 130-159 mg/dL, Near optimal/above optimal 160-189 mg/dL, Borderline high 190-219 mg/dL, High >219 mg/dL, Very high Secondary prevention optimal non HDL Cholesterol levels are recommended to be <100 mg/dL Performed By: #### 2 4331-1 ####[facility] [id number] [address] [id number] [place] [address] Cholesterol.total/Hollie sterol in HDL [Mass ratio] 3.71 {ratio} Normal <5.10 [facility] Comment on above: Order Comment: Speci men Type: BLOOD SPECIMENOrdering Facility: [facility] Address: [address] [place] [address] Performed By: #### 2 4331-1 ####[facility]ORY[facility] [id number] [address] [id number] [place] [address] FASTING TIME 12 hrs Normal [facility] Comment on above: Order Comment: Speci men Type: BLOOD SPECIMENOrdering Facility: [facility] Address: [address] [place] [address] Performed By: #### 2 4331-1 ####[facility]ORY[facility] [id number] [address] [id number] [place] [address] Triglyceride [Mass/Vol] 131 mg/dL Normal <150 C [facility] Comment on above: Order Comment: Speci men Type: BLOOD SPECIMENOrdering Facility: [facility] Address: [address] [place] [address] Result Comment: <150 mg/dL, Normal 150-199 mg/dL, Borderline high 200-499 mg/dL, High >499 mg/dL, Very high Performed By: #### 2 4331-1 ####[facility]ORYCLIA [id number] [place] [address] [place] [facility] [id number] [address] [place] CNPHerm[place] 12-25-2024 MANNY Telephone (FPWADS) ----- MARTHA VENEGAS ([id number]) 1970 F Date Time Provider Department 12/25/24 ISABEL DAVENPORT During your visit today, we recorded the following information about you: Anastasia Ulloa LPN 12/25/2024 4:21 PM Signed Received [facility] paperwork from victoriano. Placed in provider's inbox for review. Route to [place] fax Isabel Davenport MD 01/12/2025 2:33 PM [...] MA - Fully Assessed Reason for Visit: [facility] Paperwork [4185] Cmt: Victoriano Prescriptions as [...] Encounter Status:Closed by ANASTASIA ULLOA on 12/25/[address] [facility] Duane 11-12-2024 [facility] Telephone ([facility]) ----- MARTHA VENEGAS ([id number]) 1970 F Date Time Provider Department 11/12/24 JORGE HOBSON [facility] During your visit today, we recorded [...] days, such as taking additional steps for street cleaner air, hygiene, masks, physical distancing, and/or [...] Encounter Status:Closed by TED DAVE on 11/12/[address] [facility] CNOVon 11-11-2024 CNOV Office Visit (UCWSTR ) ----- MARTHA VENEGAS ([id number]) 1970 F Date Time Provider Department 11/11/24 2:45 PM ENEIDA LOYOLA [facility] During your visit today, we recorded the following information about you: Temperature Pulse Respiration Blood pressure 97.8 degrees 87/minute 18/minute 128/82 Weight 89.2 kg Eneida Loyola PA 11/11/2024 3:21 PM Signed This note was created using Lumiatariter. Subjective Martha Venegas is a 54 year [...] rate and (more content not included)... Normal [facility] COVID AND INFLUENZA A/B AND RSV PCR, ROUTINEon 11-11-2024 SARS-CoV-2 (COVID-19) RNA STEVO+probe Ql (Unsp spec) SARS-COV-2 (AGENT OF COVID-19) RNA: Detected INFLUENZA A RNA: Not detected INFLUENZA B RNA: Not detected RESPIRATORY SYNCYTIAL VIRUS (RSV) RNA: Not detected Abnormal [facility] Comment on above: Performed By: #### C VFLRS ####[facility] LABCLIA [id number] [place] [address] [place] XR CHEST 2V FRONTAL/LATon XR CHEST 2V FRONTAL/LAT * * *Final Repor t* * * DATE OF EXAM: Nov 11 [...] thoracic spine. IMPRESSION: No acute radiographic abnormality. 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: STEFANIE Transcribe Date/Time: Nov 11 2024 3:06P Dictated by : KOMAL GALE DO This examination was interpreted and the report reviewed and electronically signed by: KOMAL GALE DO on Nov 11 2024 3:08PM EST [id number] Normal [facility] XR Chest PA and Lateralon IMPRESSION: No acute radiographic abnormality. 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: [facility] Transcribe Date/Time: Nov 11 2024 3:06P Dictated [...] thoracic spine. DIVISION OF RADIOLOGY Provider, Christina Webb [facility] - 11/11/2024 * * *Final Report* * [...] spine. IMPRESSION IMPRESSION: No acute radiographic abnormality. 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: STEFANIE Transcribe Date/Time: Nov 11 2024 3:06P Dictated by : KOMAL GALE DO This examination was interpreted and the report reviewed and electronically signed by: KOMAL GALE DO on Nov 11 2024 3:08PM EST [facility] Radiology Study observation (narrative) Armaan Cruz XR Chest PA and LateralOrder ed By: Cc Provider on 11-11-2024 [facility] HEMOGLOBIN A1C (POC)on 01-07 HbA1c (Bld) [Mass fraction] 10.5 % Abnormal 4.3 - 5.6 % [facility] Absolute lymphocyte counton 10-22-2022 Lymphocytes Auto (Unsp spec) [#/Vol] 2.28 10*3/uL 0.83-4.51 [facility] Work Phone: Basophil percentageon 2021 Basophils/100 WBC (Bld) 0.2 % 0-[address] [facility] Work Phone: Chloride [Moles/Vol] 105 mmol/L 98-107 [facility]: Eosinophils/100 WBC (Bld) 1.6 % 0-5 [facility] Work Phone: Glucose [Mass/Vol] 183 mg/dL 74-106 [facility] Work Phone: Comment on above: Fasting Glucose resu lt greater than or equal to 126 mg/dL suggests DIABETES MELLITUS per A.D.A. criteria. Neutrophils (Bld) [#/Vol] 1.3 10*3/uL 2.0-7.7 [facility] Work Phone: [phone] Neutrophils/100 WBC (Bld) 30.4 % 47-70 [facility] Work Phone: [phone] Potassium [Moles/Vol] 3.5 mmol/L 3.5-5.1 [facility] Work Phone: Sodium [Moles/Vol] 140 mmol/L 136-145 [facility] Work Phone: WBC (Bld) [#/Vol] 4.4 10*3/uL 4.4-11.0 [facility] Work Phone: [phone] Blood erythrocytes count (nu mber/volume)on 10-22-2022 RBC (Bld) [#/Vol] 5.13 10*6/uL 4.2-5.[address] [facility] [facility] Work Phone: Blood hemoglobin measurement (mass/volume)on 10-22-2022 Hemoglobin (Bld) [Mass/Vol] 13.4 g/dL 12.0-15.0 [facility] Work Phone: Blood lymphocytes/100 leukoc yteson 10-22-2022 Lymphocytes/100 WBC (Bld) 52.1 % 19-41 [facility] Work Phone: Blood monocytes/100 leukocyt eson 10-22-2022 Monocytes/100 WBC (Bld) 15.5 % 0-[address] [facility] Work Phone: Blood platelet mean volumeon 10-22-2022 Platelet mean volume (Bld) [Entitic vol] 10.8 fL 6.2-12.0 [facility] Work Phone: Determination of erythrocyte mean corpuscular volume (MCV)on 10-22-2022 MCV (RBC) [Entitic vol] 82.7 fL 81-[address] [facility] Work Phone: Hematocrit Auto (Bld) [Volum e fraction]on 10-22-2022 Hematocrit (Bld) [Volume fraction] 42.4 % 37-47 [facility] Work Phone: Laboratory - Chemistry and C hemistry - challengeon 10-22-2022 CO2 [Moles/Vol] 30.0 mmol/L 21.0-32.0 [facility] Work Phone: Urea nitrogen/Creatinine [Mass ratio] 16.3 mg/mg 10-20 [facility] Work Phone: Laboratory - Hematology and Cell countson 10-22-2022 Erythrocyte distribution width (RBC) [Entitic vol] 47.3 fL 35.1-43.9 [facility] Work Phone: Erythrocyte distribution width (RBC) [Ratio] 15.5 % 11.6-14.6 [facility] Work Phone: Immature granulocytes/100 WBC (Bld) 0.200 % 0.0-0.9 [facility] Work Phone: Comment on above: IG% - Immature Granu locytes (promyelocytes, myelocytes and metamyelocytes) > 1% indicates that a LEFT SHIFT is Present. MCH (RBC) [Entitic mass] 26.1 pg 27.0-32.0 [facility] Work Phone: Nucleated RBC/100 WBC (Bld) [Ratio] 0 % 0-5 [facility] Work Phone: MCHC Auto (RBC) [Mass/Vol]on 10-22-2022 MCHC (RBC) [Mass/Vol] 31.6 g/dL 32-36 [facility] Work Phone: No Panel Informationon 10-22 Estimated Creatinine Clearance Calc 56.67 ml/min [facility] Work Phone: Estimated GFR (MDRD) Amer 76 mL/min >60 [facility] Work Phone: Comment on above: GFR Calc Estimated GFR (MDRD) Non-Af Amer 63 mL/min >60 [facility] Work Phone: Comment on above: Non- GFR Calc Troponin I High Sensitivity 8 pg/mL 3.0-54.0 [facility] Work Phone: Comment on above: Please Note: New Ester t Units and Gender Specific Reference Ranges. For more information see Policy Stat Procedure [place] High Sensitivity Troponin (TNIH) and attachments. Platelets bldon 10-22-2022 Platelets (Bld) [#/Vol] 291 10*3/uL 150-450 [facility] Work Phone: Serum or plasma calcium loulou urement (mass/volume)on 10-22-2022 Calcium [Mass/Vol] 8.6 mg/dL 8.5-10.1 [facility] Work Phone: Serum or plasma creatinine m easurement (mass/volume)on 10-22-2022 Creatinine [Mass/Vol] 0.98 mg/dL 0.55-1.02 [facility] Work Phone: Comment on above: The validity of the calculated GFR & GFRAA in patients over 70 years has not been determined. Clinical correlation is essential. Serum or plasma urea nitroge n measurement (mass/volume)on 10-22-2022 Urea nitrogen [Mass/Vol] 16 mg/dL - [facility] Work Phone: Thin prep Papanicolaou smear with manual screeningon 10-22-2022 Thin prep Papanicolaou smear with manual screening 5 5-15 [facility] Work Phone: Influenza virus A and B RNA and SARS-CoV-2 (COVID-19) N gene panel STEVO+probe (Resp)on 09-06-2022 FLUAV RNA STEVO+probe Ql (Unsp spec) Negative Negative for Influenza A by RT-PCR [facility] FLUBV RNA STEVO+probe Ql (Unsp spec) Negative Negative for Influenza B by RT-PCR [facility] SARS-CoV-2 (COVID-19) RNA STEVO+probe Ql (Resp) SARS-CoV-2 (Agent of COVID-19) Not Detected by RT-PCR or equivalent method. Not Detected [facility] Basic Metabolic Panelon 01-03 Calcium mass conc 9.2 mg/dL Normal 8.4-10.4 [facility] Comment on above: Performed By: #### H EMDF, HA1C2, LIPD2, BMP3 #### [facility] [address] [place], [place] Glucose mass conc 110 mg/dL High 70-100 [facility] Comment on above: Performed By: #### H EMDF, HA1C2, LIPD2, BMP3 #### [facility] [address] [place], [place] Urea nitrogen mass conc 24 mg/dL High 7-20 [facility] Comment on above: Performed By: #### H EMDF, HA1C2, LIPD2, BMP3 #### [facility] [address] [place] [address] Anion gap molar conc 12 Normal [facility] Comment on above: Performed By: #### H EMDF, HA1C2, LIPD2, BMP3 #### [facility] [address], [place] CO2 molar conc 31 mmol/L High 22-30 [facility] Comment on above: Performed By: #### H EMDF, HA1C2, LIPD2, BMP3 #### [facility] [address] [place] [address] Creatinine mass conc 1.17 mg/dL Normal 0.52-1.25 [facility] Comment on above: Performed By: #### H EMDF, HA1C2, LIPD2, BMP3 #### [facility] [address], [place] GFR/1.73 sq M predicted among blacks MDRD vol rate/area (S/P/Bld) 59.2 mL/min/{1.73_m2} Normal >60 [facility] Comment on above: Performed By: #### H EMDF, HA1C2, LIPD2, BMP3 #### [facility] [address] [place] [address] GFR/1.73 sq M predicted among non-blacks MDRD vol rate/area (S/P/Bld) 48.9 mL/min/{1.73_m2} Normal >60 [facility] Comment on above: Result Comment: Sour ce- MDRD equation with creatinine calibration to IDMS(NKDEP) eGFR not recommended for drug dose adjustment Performed By: #### H EMDF, HA1C2, LIPD2, BMP3 #### [address] [address] Chloride molar conc 99 mmol/L Normal 98-107 [facility] Comment on above: Performed By: #### H EMDF, HA1C2, LIPD2, BMP3 #### [address] [address] Potassium molar conc 3.3 mmol/L Low 3.5-5.1 [facility] Comment on above: Performed By: #### H EMDF, HA1C2, LIPD2, BMP3 #### [address] [address] Sodium molar conc 142 mmol/L Normal 135-145 [facility] Comment on above: Performed By: #### H EMDF, HA1C2, LIPD2, BMP3 #### [address] [address] Echo 2D/3D LB w/wo Contrast on 01-20-2019 Echo 2D/3D LB w/wo Contrast Patient Name: MARTHA VENEGAS Ultrasound Exam Date/Time 01/20/2019 15:03:36 EDT Exam Echo 2D/3D LB w/wo Contrast Ordering Physician MD ALIZA, [facility] Accession Number [id number] Reason For Exam CVA Report TRANSESOPHAGEAL ECHOCARDIOGRAM PATIENT: Martha Venegas STUDY DATE: 01/20/2019 : 1970 AGE: 48 HT/WT: 170.2 cm (67 92.3 kg (203 in) lb) GENDER: F BP: 143 / 92 LOCATION: [facility] PATIENT Inpatient [facility] STATUS: *ORDERING PHYSICIAN: * Lisandro Abrams *READING PHYSICIAN: * Lisandro Abrams *NEEDLE POLISHER: Jaskaran ALVARADO --- INDICATIONS: CVA. --- HISTORY: Echocardiography (01/17/2019). --- CONCLUSIONS SUMMARY: 1. Left ventricle: Systolic function is normal. The estimated ejection fraction is 55%. 2. Left atrium: No evidence of thrombus in the atrial cavity or appendage. 3. Atrial septum: Color Doppler shows a [id number]-hc-[id number] shunt. There is evidence of right to [...] transesophageal probe was inserted by the attending rubber stamps and dies supervisor without difficulty. Intrvenous imaging enhancement Agitated saline [...] patent foramen ovale. Color Doppler shows a [id number]-vj-gwde shunt. There is evidence of right to [...] flow profile are normal. Electronically signed by Lisandro Abrams 01/20/2019 16:41 Final Dictated: 01/20/2019 4:41 pm Dictating Physician: MD ABRAMS MUHAMMAD A Signed Date and Time: 01/20/2019 4:41 pm Signed by: MD ABRAMS MUHAMMAD A Normal [facility] Glucose,Bedsideon 01-20-2019 Glucose mass conc 100 mg/dL Normal 70-100 [facility] Comment on above: Result Comment: Test performed by glucose meter. Results may be 10%-15% lower than serum/plasma values. (CLIA ID [id number]) Performed By: #### H EMDF, HA1C2, LIPD2, BMP3 #### [facility] [address] [place] [address] Glucose mass conc 114 mg/dL High 70-100 [facility] Comment on above: Result Comment: Test performed by glucose meter. Results may be 10%-15% lower than serum/plasma values. (CLIA ID [id number]) Performed By: #### H EMDF, HA1C2, LIPD2, BMP3 #### [facility] [address] [place] [address] Glucose,Bedsideon 01-19-2019 Glucose mass conc 117 mg/dL High 70-100 [facility] Comment on above: Result Comment: Test performed by glucose meter. Results may be 10%-15% lower than serum/plasma values. (CLIA ID [id number]) Performed By: #### H EMDF, HA1C2, LIPD2, BMP3 #### [place] [address] [place] [address] Glucose mass conc 98 mg/dL Normal 70-100 [facility] Comment on above: Result Comment: Test performed by glucose meter. Results may be 10%-15% lower than serum/plasma values. (CLIA ID [id number]) Performed By: #### H EMDF, HA1C2, LIPD2, BMP3 #### [facility] [address] [place] [address] Glucose mass conc 111 mg/dL High 70-100 [facility] Comment on above: Result Comment: Test performed by glucose meter. Results may be 10%-15% lower than serum/plasma values. (CLIA ID [id number]) Performed By: #### H EMDF, HA1C2, LIPD2, BMP3 #### [facility] [address] [place] [address] Glucose mass conc 154 mg/dL High 70-100 [facility] Comment on above: Result Comment: Test performed by glucose meter. Results may be 10%-15% lower than serum/plasma values. (CLIA ID [id number]) Performed By: #### H EMDF, HA1C2, LIPD2, BMP3 #### [facility] [address] [place] [address] Glucose,Bedsideon 01-18-2019 Glucose mass conc 123 mg/dL High 70-100 [facility] Comment on above: Result Comment: Test performed by glucose meter. Results may be 10%-15% lower than serum/plasma values. (CLIA ID [id number]) Performed By: #### H EMDF, HA1C2, LIPD2, BMP3 #### [facility] [address] [place] [address] Glucose mass conc 231 mg/dL High 70-100 [facility] Comment on above: Result Comment: Test performed by glucose meter. Results may be 10%-15% lower than serum/plasma values. (CLIA ID [id number]) Performed By: #### H EMDF, HA1C2, LIPD2, BMP3 #### [facility] [address] [place] [address] Glucose mass conc 84 mg/dL Normal 70-100 [facility] Comment on above: Result Comment: Test performed by glucose meter. Results may be 10%-15% lower than serum/plasma values. (CLIA ID [id number]) Performed By: #### H EMDF, HA1C2, LIPD2, BMP3 #### [facility] [address] [place] [address] Glucose mass conc 121 mg/dL High 70-100 [facility] Comment on above: Result Comment: Test performed by glucose meter. Results may be 10%-15% lower than serum/plasma values. (CLIA ID [id number]) Performed By: #### H EMDF, HA1C2, LIPD2, BMP3 #### [facility] [address] [place] [address] MRA Head w/o Contraston 01-03 MRA Head w/o Contrast Patient Name: MARTHA PATEL MRI Exam Date/Time 01/17/2019 18:34:49 EDT Exam MRA Head w/o Contrast Ordering Physician MD VILLALTA SHREEBATSA Accession Number [id number] CPT4 Codes 01848 () Reason For Exam STROKE Report MRA HEAD WITHOUT CONTRAST CLINICAL INDICATION: Stroke Noncontrast three-dimensional [id number]-cf-[id number] MRA images of the intracranial circulation were [...] the intracranial circulation. Report Dictated on Workstation: [facility] Final Dictated: 01/17/2019 10:54 pm Dictating Physician: MD PIPER JONATHAN R Signed Date and Time: 01/17/2019 10:56 pm Signed by: MD PIPER JONATHAN R Transcribed Date and Time: 01/17/2019 10:54 Normal [facility] MRA Neck w/ + w/o Contraston 01-18-2019 MRA Neck w/ + w/o Contrast Patient Name: MARTHA VENEGAS MRI Exam Date/Time 01/17/2019 18:34:49 EDT Exam MRA Neck w/ + w/o Contrast Ordering Physician [id number] DAY Accession Number [id number] CPT4 Codes 48266 () Reason For Exam Stroke, L visual loss Report MRA NECK WITH AND WITHOUT CONTRAST CLINICAL INDICATION: Stroke Noncontrast 2-D [id number]-ax-rhujvt MR angiographic images of the neck were [...] significant vertebrobasilar stenosis. Report Dictated on Workstation: [facility] Final Dictated: 01/17/2019 10:56 pm Dictating Physician: MD PIPER JONATHAN R Signed Date and Time: 01/17/2019 10:58 pm Signed by: MD PIPER JONATHAN R Transcribed Date and Time: 01/17/2019 10:56 Normal [facility] MRI Brain w/ + w/o Contrasto n 01-18-2019 MRI Brain w/ + w/o Contrast Patient Name: MARTHA VENEGAS MRI Exam Date/Time 01/17/2019 18:34:49 EDT Exam MRI Brain w/ + w/o Contrast Ordering Physician [id number] HASSAN Accession Number [id number] CPT4 Codes 48423 () Reason For Exam stroke, L visual [...] of gadolinium contrast. Report Dictated on Workstation: [facility] Final Dictated: 01/17/2019 10:49 pm Dictating Physician: MD PIPER JONATHAN R Signed Date and Time: 01/17/2019 10:54 pm Signed by: MD PIPER JONATHAN R Transcribed Date and Time: 01/17/2019 10:49 Normal [facility] Add on test from HISon 01-17 Add on test from HIS Accepted Normal [facility] Comment on above: Result Comment: Spec imen available & acceptable for analysis. Performed By: #### A DDON #### [address] [place], [place] Basic Metabolic Panelon 01-03 Calcium mass conc 9.4 mg/dL Normal 8.4-10.4 [facility] Comment on above: Performed By: #### H EMDF, HA1C2, LIPD2, BMP3 #### [address] [place] [place], [place] Anion gap molar conc 14 Normal [facility] Comment on above: Performed By: #### H EMDF, HA1C2, LIPD2, BMP3 #### [address] [place], [place] CO2 molar conc 28 mmol/L Normal 22-30 [facility] Comment on above: Performed By: #### H EMDF, HA1C2, LIPD2, BMP3 #### [address] [place] [place], [place] Creatinine mass conc 0.84 mg/dL Normal 0.52-1.25 [facility] Comment on above: Performed By: #### H EMDF, HA1C2, LIPD2, BMP3 #### [address] [address] [place] [address] GFR/1.73 sq M predicted among blacks MDRD vol rate/area (S/P/Bld) mL/min/{1.73_m2} Normal >60 [facility] Comment on above: Performed By: #### H EMDF, HA1C2, LIPD2, BMP3 #### [address] [address] [place] [address] GFR/1.73 sq M predicted among non-blacks MDRD vol rate/area (S/P/Bld) mL/min/{1.73_m2} Normal >60 [facility] Comment on above: Result Comment: Sour ce- MDRD equation with creatinine calibration to IDMS(NKDEP) eGFR not recommended for drug dose adjustment Performed By: #### H EMDF, HA1C2, LIPD2, BMP3 #### [address] [address] Glucose mass conc 155 mg/dL High 70-100 [facility] Comment on above: Performed By: #### H EMDF, HA1C2, LIPD2, BMP3 #### [address] [address] Urea nitrogen mass conc 19 mg/dL Normal 7-20 [facility] Comment on above: Performed By: #### H EMDF, HA1C2, LIPD2, BMP3 #### [address] [address] Chloride molar conc 97 mmol/L Low 98-107 [facility] Comment on above: Performed By: #### H EMDF, HA1C2, LIPD2, BMP3 #### [address] [place] [address] Potassium molar conc 3.3 mmol/L Low 3.5-5.1 [facility] Comment on above: Performed By: #### H EMDF, HA1C2, LIPD2, BMP3 #### [address] [place] [address] Sodium molar conc 139 mmol/L Normal 135-145 [facility] Comment on above: Performed By: #### H EMDF, HA1C2, LIPD2, BMP3 #### [facility] [address] [place] [address] Echo Complete w/wo Contrasto n 01-17-2019 Echo Complete w/wo Contrast Patient Name: MARTHA VENEGAS Ultrasound Exam Date/Time 01/17/2019 15:33:54 EDT Exam Echo Complete w/wo Contrast Ordering Physician Jamie AMADOR, STACEY Accession Number [id number] Reason For Exam stroke Report TRANSTHORACIC ECHOCARDIOGRAM PATIENT: Martha Venegas STUDY DATE: 01/17/2019 : 1970 AGE: 48 HT/WT: 165.1 cm (65 92.1 kg (202.6 in) lb) GENDER: F BP: 137 / 95 LOCATION: [facility] PATIENT Observation [facility] STATUS: *ORDERING PHYSICIAN: * Stacey Amador *READING PHYSICIAN: * Wesley Gracia, *NEEDLE POLISHER: * Raymond Gotti RDCS, MD AE --- [...] Signed by: MD GRACIA STEPHEN A Normal [facility] Glucose,Bedsideon 01-17-2019 Glucose mass conc 117 mg/dL High 70-100 [facility] Comment on above: Result Comment: Test performed by glucose meter. Results may be 10%-15% lower than serum/plasma values. (CLIA ID [id number]) Performed By: #### H EMDF, HA1C2, LIPD2, BMP3 #### [facility] [address] [address] Glucose mass conc 125 mg/dL High 70-100 [facility] Comment on above: Result Comment: Test performed by glucose meter. Results may be 10%-15% lower than serum/plasma values. (CLIA ID [id number]) Performed By: #### B GLU #### [address] [place] [address] Glucose mass conc 106 mg/dL High 70-100 [facility] Comment on above: Result Comment: Test performed by glucose meter. Results may be 10%-15% lower than serum/plasma values. (CLIA ID [id number]) Performed By: #### B GLU #### [address] [place] [address] Glucose mass conc 132 mg/dL High 70-100 [facility] Comment on above: Result Comment: Test performed by glucose meter. Results may be 10%-15% lower than serum/plasma values. (CLIA ID [id number]) Performed By: #### B GLU #### [address] [address] [place] [address] Hemoglobin A1Con 01-17-2019 Hemoglobin A1c/Hemoglobin.total mass fraction (Bld) 240 mg/dL Normal [facility] Comment on above: Performed By: #### H EMDF, HA1C2, LIPD2, BMP3 #### [address] [place] [address] Hemoglobin A1c/Hemoglobin.total mass fraction (Bld) 10.0 % High 4.0-5.7 [facility] Comment on above: Result Comment: --Hg bA1C levels may not be accurate in patients who have renal disease, received recent blood transfusions, are anemic, or who have dyshemoglobinemia. Performed By: #### H EMDF, HA1C2, LIPD2, BMP3 #### [address] [place] [place] [address] Hemogram w/ Autodiffon 01-17 Abs Baso Cnt 0.0 10*3/uL Normal 0.0-0.2 [facility] Comment on above: Performed By: #### H EMDF, HA1C2, LIPD2, BMP3 #### [address] [address] [place], [place] Abs Neutrophile Cnt 5.3 10*3/uL Normal 1.8-7.0 [facility] Comment on above: Performed By: #### H EMDF, HA1C2, LIPD2, BMP3 #### [address] Basophils/100 WBC (Bld) 0.4 % Normal 0.0-2.0 [facility] Comment on above: Performed By: #### H EMDF, HA1C2, LIPD2, BMP3 #### [address] Eosinophils #/vol (Bld) 0.3 10*3/uL Normal 0.0-0.5 [facility] Comment on above: Performed By: #### H EMDF, HA1C2, LIPD2, BMP3 #### [address] Eosinophils/100 WBC (Bld) 3.0 % Normal 1.0-6.0 [facility] Comment on above: Performed By: #### H EMDF, HA1C2, LIPD2, BMP3 #### [address] Erythrocyte distribution width Ratio (RBC) 14.0 % Normal 11.5-14.5 [facility] Comment on above: Performed By: #### H EMDF, HA1C2, LIPD2, BMP3 #### [address] Granulocytes/100 WBC (Bld) 57.6 % Normal 40.0-80.0 [facility] Comment on above: Performed By: #### H EMDF, HA1C2, LIPD2, BMP3 #### [address] Hematocrit Volume Fraction (Bld) 41.2 % Normal 35.0-47.0 [facility] Comment on above: Performed By: #### H EMDF, HA1C2, LIPD2, BMP3 #### [address] Hemoglobin mass conc (Bld) 13.6 g/dL Normal 11.7-16.0 [facility] Comment on above: Performed By: #### H EMDF, HA1C2, LIPD2, BMP3 #### [address] Lymphocytes #/vol (Bld) 2.7 10*3/uL Normal 1.0-4.3 [facility] Comment on above: Performed By: #### H EMDF, HA1C2, LIPD2, BMP3 #### [address] [address] [place], [place] Lymphocytes/100 WBC (Bld) 28.7 % Normal 20.0-40.0 [facility] Comment on above: Performed By: #### H EMDF, HA1C2, LIPD2, BMP3 #### [address] MCH Entitic mass (RBC) 26.6 pg Normal 26.0-34.0 [facility] Comment on above: Performed By: #### H EMDF, HA1C2, LIPD2, BMP3 #### [address] MCHC mass conc (RBC) 33.0 % Normal 32.0-36.0 [facility] Comment on above: Performed By: #### H EMDF, HA1C2, LIPD2, BMP3 #### [address] MCV Entitic volume (RBC) 80.8 fL Normal 79.0-98.0 [facility] Comment on above: Performed By: #### H EMDF, HA1C2, LIPD2, BMP3 #### [address] Monocytes #/vol (Bld) 1.0 10*3/uL High 0.0-0.8 [facility] Comment on above: Performed By: #### H EMDF, HA1C2, LIPD2, BMP3 #### [address] Monocytes/100 WBC (Bld) 10.3 % High 2.0-10.0 [facility] Comment on above: Performed By: #### H EMDF, HA1C2, LIPD2, BMP3 #### [facility] [address] [place], [place] Platelet mean volume Entitic volume (Bld) 8.6 fL Normal 7.4-10.4 [facility] Comment on above: Performed By: #### H EMDF, HA1C2, LIPD2, BMP3 #### [address] [place], [place] Platelets #/vol (Bld) 328 10*3/uL Normal 140-440 [facility] Comment on above: Performed By: #### H EMDF, HA1C2, LIPD2, BMP3 #### [address] RBC #/vol (Bld) 5.09 10*6/uL Normal 3.80-5.20 [facility] Comment on above: Performed By: #### H EMDF, HA1C2, LIPD2, BMP3 #### [address] [address] [place], [place] WBC #/vol (Bld) 9.2 10*3/uL Normal 3.6-10.7 [facility] Comment on above: Performed By: #### H EMDF, HA1C2, LIPD2, BMP3 #### [address] Lipid Panelon 01-17-2019 Cholesterol in HDL mass conc 36 mg/dL Low 40-60 [facility] Comment on above: Performed By: #### H EMDF, HA1C2, LIPD2, BMP3 #### [address] [place], [place] Cholesterol.total/Hollie sterol in HDL mass ratio 5 Normal [facility] Comment on above: Result Comment: Ref Range: < 3 Low Risk for CHD 3-6 Mod Risk for CHD > 6 High Risk for CHD Performed By: #### H EMDF, HA1C2, LIPD2, BMP3 #### [address] [place] [address] Protein mass conc 121 mg/dL Abnormal <100 [facility] Comment on above: Performed By: #### H EMDF, HA1C2, LIPD2, BMP3 #### [facility] [address] [place] [address] Cholesterol mass conc 195 mg/dL Normal < 200 [facility] Comment on above: Performed By: #### H EMDF, HA1C2, LIPD2, BMP3 #### [facility] [address] [place] [address] Triglyceride mass conc 192 mg/dL Abnormal <150 [facility] Comment on above: Performed By: #### H EMDF, HA1C2, LIPD2, BMP3 #### [facility] [address] [place] [address] Troponin Ion 01-17-2019 Troponin I.cardiac mass conc ng/mL Normal 0.000-0.034 [facility] Comment on above: Result Comment: 0.04 6 - 0.400 = Indeterminate > 0.400 = Consider Myocardial Injury Performed By: #### T ROPN #### [address] [address] [place] [address] ALLIED HEALTHon 01-16-2019 ALLIED HEALTH HNO ID: [id number] Author: CHARANJIT Anna (Ct) Service: ? Author Type: Clinical Physical Therapist Aide Type: Allied Health Filed: 01/16/2019 5:55 PM [...] Anna January 16, 2019 5:55 PM Normal [facility] APTTon 01-16-2019 aPTT Coag time (Bld) 21.4 s Low 23.0-32.4 [facility] Comment on above: Result Comment: Unfr actionated [...] laboratory APTT reagent in use throughout the [facility]. Performed By: #### C BCDIF, PT, PTT, CMP #### [facility] [address] [place] [address] CBC and Differentialon 01-16 Abs Baso <0.03 Normal <0.11 [facility] Comment on above: Performed By: #### C BCDIF, PT, PTT, CMP #### [facility] [address] [place] [address] Abs Laporte 0.96 k/uL High <0.87 [facility] Comment on above: Performed By: #### C BCDIF, PT, PTT, CMP #### [facility] [address] [place] [address] Abs Neut 6.92 k/uL Normal 1.45-7.50 [facility] Comment on above: Performed By: #### C BCDIF, PT, PTT, CMP #### [facility] [address] [place] [address] Basophils/100 WBC (Bld) 0.2 % Normal [facility] Comment on above: Performed By: #### C BCDIF, PT, PTT, CMP #### [facility] [address] [place] [address] Eosinophils #/vol (Bld) 0.35 10*3/uL Normal <0.46 [facility] Comment on above: Performed By: #### C BCDIF, PT, PTT, CMP #### [facility] [address] [place] [address] Eosinophils/100 WBC (Bld) 3.2 % Normal [facility] Comment on above: Performed By: #### C BCDIF, PT, PTT, CMP #### [facility] [address] [place] [address] Erythrocyte distribution width Ratio (RBC) 14.5 % Normal 11.5-15.0 [facility] Comment on above: Performed By: #### C BCDIF, PT, PTT, CMP #### [facility] [address] [place] [address] Hematocrit Volume Fraction (Bld) 44.9 % Normal 36.0-46.0 [facility] Comment on above: Performed By: #### C BCDIF, PT, PTT, CMP #### [facility] [address] [place] [address] Hemoglobin mass conc (Bld) 14.1 g/dL Normal 11.5-15.5 [facility] Comment on above: Performed By: #### C BCDIF, PT, PTT, CMP #### [facility] [address] [place] [address] Lymphocytes #/vol (Bld) 2.77 10*3/uL Normal 1.00-4.00 [facility] Comment on above: Performed By: #### C BCDIF, PT, PTT, CMP #### [facility] [address] [place] [address] Lymphocytes/100 WBC (Bld) 25.1 % Normal [facility] Comment on above: Performed By: #### C BCDIF, PT, PTT, CMP #### [facility] [address] [place] [address] MCH Entitic mass (RBC) 25.8 pG Low 26.0-34.0 [facility] Comment on above: Performed By: #### C BCDIF, PT, PTT, CMP #### [facility] [address] [place] [address] MCHC mass conc (RBC) 31.4 g/dL Normal 30.5-36.0 [facility] Comment on above: Performed By: #### C BCDIF, PT, PTT, CMP #### [facility] [address] [place] [address] MCV Entitic volume (RBC) 82.2 fL Normal 80.0-100.0 [facility] Comment on above: Performed By: #### C BCDIF, PT, PTT, CMP #### [facility] [address] [place] [address] Monocytes/100 WBC (Bld) 8.7 % Normal [facility] Comment on above: Performed By: #### C BCDIF, PT, PTT, CMP #### [facility] [address] [phone] Neutrophils/100 WBC (Bld) 62.8 % Normal [facility] Comment on above: Performed By: #### C BCDIF, PT, PTT, CMP #### [facility] [address] [place], [place] [address] Platelet mean volume Entitic volume (Bld) 11.2 fL Normal 9.0-12.7 [facility] Comment on above: Performed By: #### C BCDIF, PT, PTT, CMP #### [facility] [address] [place], [place] [id number] Platelets #/vol (Bld) 274 10*3/uL Normal 150-400 [facility] Comment on above: Performed By: #### C BCDIF, PT, PTT, CMP #### [facility] [address] [place], [place] [address] RBC #/vol (Bld) 5.46 10*6/uL High 3.90-5.20 [facility] Comment on above: Performed By: #### C BCDIF, PT, PTT, CMP #### [facility] [address] [place], [place] [address] WBC #/vol (Bld) 11.02 10*3/uL High 3.70-11.00 [facility] Comment on above: Performed By: #### C BCDIF, PT, PTT, CMP #### [facility] [address] [place], [place] [address] CT BRAIN WO IVCONon 01-17-[address] BRAIN WO IVCON * * *Final Report* * * DATE OF EXAM: Jan 16 2019 5:54PM [facility] - CT BRAIN WO IVCON / [...] are unremarkable. IMPRESSION: No acute intracranial process. 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: PSCB Transcribe Date/Time: Jan 16 2019 5:57P Dictated by : VIVIAN WARD MD This examination was interpreted and the report reviewed and electronically signed by: VIVIAN WARD MD on Jan 16 2019 5:59PM EST [id number] Normal [facility] Comp Metabolic Panelon 01-16 Albumin mass conc 4.6 g/dL Normal 3.9-4.9 [facility] Comment on above: Performed By: #### C BCDIF, PT, PTT, CMP #### [facility] [address] [place] [address] ALP enzyme act/vol 71 U/L Normal 34-123 [facility] Comment on above: Performed By: #### C BCDIF, PT, PTT, CMP #### [facility] [address] [place] [address] ALT enzyme act/vol 38 U/L Normal 7-38 [facility] Comment on above: Performed By: #### C BCDIF, PT, PTT, CMP #### [facility] [address] [place] [address] Anion gap molar conc 16 mmol/L Normal 9-18 [facility] Comment on above: Performed By: #### C BCDIF, PT, PTT, CMP #### [facility] [address] [place] [address] AST enzyme act/vol 27 U/L Normal 13-35 [facility] Comment on above: Performed By: #### C BCDIF, PT, PTT, CMP #### [facility] [address] [address] Bilirubin mass conc 0.3 mg/dL Normal 0.2-1.3 [facility] Comment on above: Performed By: #### C BCDIF, PT, PTT, CMP #### [facility] [address] [place] [address] Calcium mass conc 9.9 mg/dL Normal 8.5-10.2 [facility] Comment on above: Performed By: #### C BCDIF, PT, PTT, CMP #### [facility] [address] [place] [address] Chloride molar conc 96 mmol/L Low 97-105 [facility] Comment on above: Performed By: #### C BCDIF, PT, PTT, CMP #### [facility] [address] [place] [address] CO2 molar conc 25 mmol/L Normal 22-30 [facility] Comment on above: Performed By: #### C BCDIF, PT, PTT, CMP #### [facility] [address] [place] [address] Creatinine mass conc 0.92 mg/dL Normal 0.58-0.96 [facility] Comment on above: Performed By: #### C BCDIF, PT, PTT, CMP #### [facility] [address] [place] [address] eGFR- Amer. >60 Normal [facility] Comment on above: Performed By: #### C BCDIF, PT, PTT, CMP #### [facility] [address] [place] [address] GFR/1.73 sq M predicted among non-blacks MDRD vol rate/area (S/P/Bld) mL/min/{1.73_m2} Normal [facility] Comment on above: Result Comment: eGFR (Estimated [...] #### C BCDIF, PT, PTT, CMP #### [facility] [address] [place] [address] Glucose mass conc 145 mg/dL High 74-99 [facility] Comment on above: Result Comment: The [place] [employer] (ADA) provides guidance for cutoff [...] Standards of Medical Care in Diabetes 2016, [place] [employer]. Diabetes Care. 2016.39(Suppl 1). Performed By: #### C BCDIF, PT, PTT, CMP #### [facility] [address] [place] [address] Potassium molar conc 3.5 mmol/L Low 3.7-5.1 [facility] Comment on above: Performed By: #### C BCDIF, PT, PTT, CMP #### [facility] [address] [place] [address] Protein mass conc 8.4 g/dL High 6.3-8.0 [facility] Comment on above: Performed By: #### C BCDIF, PT, PTT, CMP #### [facility] [address] [place] [address] Sodium molar conc 137 mmol/L Normal 136-144 [facility] Comment on above: Performed By: #### C BCDIF, PT, PTT, CMP #### [facility] [address] [place] [address] Urea nitrogen mass conc 20 mg/dL Normal 7-21 [facility] Comment on above: Performed By: #### C BCDIF, PT, PTT, CMP #### [facility] [address] [place] [address] ECG COMPLETEon 01-16-2019 ECG COMPLETE NAME : THEO,MARTHA PID : [id number] : 1970 Gender : Female Race : ORD : [id number] Procedure Date : Jan 16 2019 18:02:19 Edit Date : Jan 17 2019 08:54:46 Diagnosis:NORMAL SINUS RHYTHM MINIMAL VOLTAGE CRITERIA FOR LVH, MAY BE NORMAL VARIANT BORDERLINE ECG NO PREVIOUS ECGS AVAILABLE agree Confirmed by MD ESPINOZA CHRISTOPHER ([id number]), index editor MALINA TAMAYO ([id number]) on 01/17/2019 8:54:44 AM Ventricular Rate : 86 BPM Atrial Rate : 86 BPM P-R Interval : 138 ms QRS Duration : 82 ms Q-T Interval : 380 ms QTC Calculation(Bezet) : 454 ms P [place] : 32 degrees R [place] : -3 degrees T [place] : 37 degrees Test Reason : Chest Pain Location : 1 : ER ED Overread By : MD ESPINOZA CHRISTOPHER Edited By : MALINA TAMAYO Referred By : , Acquired by : GEO [facility] ED NOTEon 01-16-2019 ED NOTE HNO ID: [id number] Author: Zhane (Rn) KELLEN Becerra Service: ? Author Type: Registered Nurse Type: ED Notes Filed: 01/16/2019 6:37 PM Note Text: Pt was explained the need for admit to hospital and need to transfer [facility] ED NOTE HNO ID: [id number] Author: Zhane MarroquinRn) KELLEN Becerra Service: ? Author Type: Registered Nurse Type: ED Notes Filed: 01/16/2019 5:42 PM Note Text: C/o of lightheadedness and dizzeness for 1 month and blurred vision [facility] ED NOTE HNO ID: [id number] Author: Opal MarroquinRn) KELLEN Fletcher Service: ? Author Type: Registered Nurse Type: ED Notes Filed: 01/16/2019 4:49 PM Note Text: [facility] with vision issues and need for MRI, patient states it all started over a month ago with some lightheadedness, vision is getting worse over the past 2 weeks. [facility] ED PROV NOTEon 01-16-2019 Protein mass conc HNO ID: [id number] Author: Dandre Espinoza DO Service: Emergency Medicine Author Type: Physician Type: ED Provider Notes Filed: 01/18/2019 12:52 AM Note Text: ED Provider Note Patient Name: Martha Venegas SERVICE DATE: 01/16/19 History Patient presents with: Blurred Vision: sent over from [facility] for an MRI, been having these vision [...] has a diplopia. She was saw an computer networking instructor adjunct today who diagnosed her with left-sided homonymous [...] OF OVARY(S) 2006 Right - VAGINAL HYSTERECTOMY 2006 Hysterectomy, vaginal FAMILY HISTORY Problem Relation Age [...] 25.8 (*) 26.0 - 34.0 pG Abs [place] 0.96 (*) <0.87 k/uL All other components [...] signs reviewed Triage note reviewed Placed on compliance monitor Discussed with accepting physician at [facility] Dr. Villalta - agreeable to admission/transfer Patient [...] evaluation. She would like to go to [facility]. The patient will be transferred. She stable at this time. Dr. Villalta is accepting. The patient was TRANSFERRED to: [facility] Condition at time of disposition: stable SIGNATURE: KAREN Carrizales (Pa) 01/16/192012 Attending Note I have personally performed a face to face assessment of the patient and have reviewed the PA/NEUROPSYCHOLOGY DIRECTOR note. My bradshaw findings include: History is [...] gait instability. She was evaluated by an can patcher today and was noted to have left [...] normal sinus rhythm. Patient be transferred to [facility] per her request for further evaluation of potential subacute stroke as the cause of her visual disturbance. Patient updated and agreeable to current plan of care. All questions answered bedside. Transfer. Other additions or changes: As edited - bold type Signature: Dandre Espinoza DO Date: 01/18/2019 Time: 12:48 AM Dandre Espinoza DO 01/18/19 0052 Normal [facility] Protimeon 01-16-2019 Prothrombin time (PT) Coag time (PPP) 9.7 s Normal 9.7-13.0 [facility] Comment on above: Performed By: #### C BCDIF, PT, PTT, CMP #### [facility] [address] [place] [address] Prothrombin time (PT) Coag time (PPP) s Low 0.9-1.3 [facility] Comment on above: Result Comment: Denisse min K Antagonist (VKA) Therapeutic Range: INR 2 to 3 (Target INR of 2.5) Note: For patients treated with VKA drugs, such as warfarin, the [place] [employer] 2012 Guideline recommends [...] to 3.5 (target INR of 3). Adilene DANGELO, et al. Chest 2012, 141:7S-47S Steven SHEARER, et al. [facility] 2017, 70: 252-289 Performed By: #### C BCDIF, PT, PTT, CMP #### [facility] [address] [facility] [phone] Troponin Ton 01-16-2019 Troponin T.cardiac mass conc ug/L Normal 0.000-0.029 [facility] Comment on above: Performed By: #### T NT #### [facility] [address] [facility] [phone] XR CHEST 1V FRONTAL PORTon 0 01-16-2019 [...] is unremarkable. 4. Other: Bony structures unremarkable. 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: STEFANIE Transcribe Date/Time: Jan 16 2019 5:31P Dictated by : NEYMAR SEVERINO DO This examination was interpreted and the report reviewed and electronically signed by: NEYMAR SEVERINO DO on Jan 16 2019 5:32PM EST [id number] Normal [facility] VISUAL FIELD 30-2 OU (BOTH E YES) [facility] Vital Signs Date Time Vital Sign Value Performing Clinician Facility 07-16-2025 08:13-0400 Body mass index (BMI) [Ratio] 35.18 kg/m2 Rivera Gandhi APRN.APPLICATION INFRASTRUCTURE ENGINEER Work Phone: [facility] 07-16-2025 08:13-0400 Body temperature 97 [degF] Rivera Gandhi RETAIL BUSINESS ANALYST.APPLICATION INFRASTRUCTURE ENGINEER Work Phone: [facility] 07-16-2025 08:13-0400 Body weight 93 kg Rivera Gandhi RETAIL BUSINESS ANALYST.APPLICATION INFRASTRUCTURE ENGINEER Work Phone: [facility] 07-16-2025 08:13-0400 Diastolic blood pressure 97 mm[Hg] Rivera Gandhi RETAIL BUSINESS ANALYST.APPLICATION INFRASTRUCTURE ENGINEER Work Phone: [facility] Comment on above: no medications worked 3rd shift 07-16-2025 08:13-0400 Heart rate 67 /min Rivera Gandhi RETAIL BUSINESS ANALYST.APPLICATION INFRASTRUCTURE ENGINEER Work Phone: [facility] 07-16-2025 08:13-0400 Respiratory rate 18 /min Rivera Gandhi RETAIL BUSINESS ANALYST.APPLICATION INFRASTRUCTURE ENGINEER Work Phone: [facility] 07-16-2025 08:13-0400 SaO2% (BldA) [Mass fraction] 100 % Rivera Gandhi RETAIL BUSINESS ANALYST.APPLICATION INFRASTRUCTURE ENGINEER Work Phone: [facility] 07-16-2025 08:13-0400 Systolic blood pressure 186 mm[Hg] Rivera Gandhi RETAIL BUSINESS ANALYST.APPLICATION INFRASTRUCTURE ENGINEER Work Phone: [facility] Comment on above: no medications worked 3rd shift 04-27-2025 13:35-0400 Body height 162.6 cm Vadim Teixeira APRN.APPLICATION INFRASTRUCTURE ENGINEER Work Phone: [facility] 04-27-2025 13:35-0400 Body mass index (BMI) [Ratio] 34.42 kg/m2 Vadim Teixeira APRN.APPLICATION INFRASTRUCTURE ENGINEER Work Phone: [facility] 04-27-2025 13:35-0400 Body weight 91 kg Vadim Teixeira APRN.APPLICATION INFRASTRUCTURE ENGINEER Work Phone: [facility] 04-27-2025 13:35-0400 Diastolic blood pressure 84 mm[Hg] Vadim Teixeira APRN.APPLICATION INFRASTRUCTURE ENGINEER Work Phone: [facility] 04-27-2025 13:35-0400 Heart rate 62 /min Vadim Teixeira RETAIL BUSINESS ANALYST.APPLICATION INFRASTRUCTURE ENGINEER Work Phone: [facility] 04-27-2025 13:35-0400 Systolic blood pressure 123 mm[Hg] Vadim Teixeira RETAIL BUSINESS ANALYST.APPLICATION INFRASTRUCTURE ENGINEER Work Phone: [facility] 04-21-2025 10:26-0400 Body mass index (BMI) [Ratio] 34.44 kg/m2 Elizabeth Pereira MD Work Phone: [facility] 04-21-2025 10:26-0400 Body weight 91 kg Elizabeth Pereira MD Work Phone: [facility] 04-21-2025 10:26-0400 Heart rate 64 /min Elizabeth Pereira MD Work Phone: [facility] 04-21-2025 10:26-0400 SaO2% (BldA) [Mass fraction] 100 % Elizabeth Pereira MD Work Phone: [facility] 03-09-2025 09:35-0400 Diastolic blood pressure 91 mm[Hg] Jemima Winn MD Work Phone: [facility] 03-09-2025 09:35-0400 Heart rate 57 /min Jemima Winn MD Work Phone: [facility] 03-09-2025 09:35-0400 Respiratory rate 13 /min Jemima iWnn MD Work Phone: [facility] 03-09-2025 09:35-0400 SaO2% (BldA) [Mass fraction] 100 % Jemima Winn MD Work Phone: [facility] 03-09-2025 09:35-0400 Systolic blood pressure 127 mm[Hg] Jemima Winn MD Work Phone: [facility] 02-16-2025 09:49-0400 Body height 162.6 cm Phyllis Bernardo APRN.APPLICATION INFRASTRUCTURE ENGINEER Work Phone: [facility] 02-16-2025 09:49-0400 Body mass index (BMI) [Ratio] 33.99 kg/m2 Phyllis Bernardo APRN.APPLICATION INFRASTRUCTURE ENGINEER Work Phone: [facility] 02-16-2025 09:49-0400 Body weight 89.81 kg Phyllis Bernardo APRN.APPLICATION INFRASTRUCTURE ENGINEER Work Phone: [facility] 02-16-2025 09:49-0400 Diastolic blood pressure 78 mm[Hg] Phyllis Bernardo APRN.APPLICATION INFRASTRUCTURE ENGINEER Work Phone: [facility] 02-16-2025 09:49-0400 Heart rate 68 /min Phyllis Bernardo APRN.APPLICATION INFRASTRUCTURE ENGINEER Work Phone: [facility] 02-16-2025 09:49-0400 Respiratory rate 18 /min Phyllis Bernardo APRN.APPLICATION INFRASTRUCTURE ENGINEER Work Phone: [facility] 02-16-2025 09:49-0400 SaO2% (BldA) [Mass fraction] 98 % Phyllis Bernardo APRN.APPLICATION INFRASTRUCTURE ENGINEER Work Phone: [facility] 02-16-2025 09:49-0400 Systolic blood pressure 128 mm[Hg] Phyllis Bernardo APRN.APPLICATION INFRASTRUCTURE ENGINEER Work Phone: [facility] 01-15-2025 13:24-0400 Body mass index (BMI) [Ratio] 33.68 kg/m2 Elizabeth Pereira MD Work Phone: [facility] 01-15-2025 13:24-0400 Body weight 89 kg Elizabeth Pereira MD Work Phone: [facility] 01-15-2025 13:24-0400 Heart rate 75 /min Elizabeth Pereira MD Work Phone: [facility] 01-15-2025 13:24-0400 SaO2% (BldA) [Mass fraction] 100 % Elizabeth Pereira MD Work Phone: [facility] 01-05-2025 09:29-0500 Body height 162.6 cm Isabel Davenport MD Work Phone: [facility] 01-05-2025 09:29-0500 Body mass index (BMI) [Ratio] 34.06 kg/m2 Isabel Davenport MD Work Phone: [facility] 01-05-2025 09:29-0500 Body weight 90 kg Isabel Davenport MD Work Phone: [facility] 01-05-2025 09:29-0500 Diastolic blood pressure 80 mm[Hg] Isabel Davenport MD Work Phone: [facility] 01-05-2025 09:29-0500 Heart rate 70 /min Isabel Davenport MD Work Phone: [facility] 01-05-2025 09:29-0500 SaO2% (BldA) [Mass fraction] 97 % Isabel Davenport MD Work Phone: [facility] 01-05-2025 09:29-0500 Systolic blood pressure 132 mm[Hg] Isabel Davenport MD Work Phone: [facility] 11-11-2024 14:45-0500 Body mass index (BMI) [Ratio] 33.76 kg/m2 Krislyn Aberegg PA Work Phone: [facility] 11-11-2024 14:45-0500 Body temperature 97.81 [degF] Krislyn Aberegg PA Work Phone: [facility] 11-11-2024 14:45-0500 Body weight 89.2 kg Krislyn Aberegg PA Work Phone: [facility] 11-11-2024 14:45-0500 Diastolic blood pressure 82 mm[Hg] Krislyn Aberegg PA Work Phone: [facility] 11-11-2024 14:45-0500 Heart rate 87 /min Krislyn Aberegg PA Work Phone: [facility] 11-11-2024 14:45-0500 Respiratory rate 18 /min Krislyn Aberegg PA Work Phone: [facility] 11-11-2024 14:45-0500 SaO2% (BldA) [Mass fraction] 97 % Eneida Loyola PA Work Phone: [facility] 11-11-2024 14:45-0500 Systolic blood pressure 128 mm[Hg] Eneida Trinhgg PA Work Phone: [facility] 06-11-2024 14:12-0400 Body height 162.6 cm Merari Camarillo MD Work Phone: [facility] 06-11-2024 14:12-0400 Body mass index (BMI) [Ratio] 35.19 kg/m2 Merari Camarillo MD Work Phone: [facility] 06-11-2024 14:12-0400 Body weight 92.99 kg Merari Camarillo MD Work Phone: [facility] 06-11-2024 14:12-0400 Diastolic blood pressure 103 mm[Hg] Merari Camarillo MD Work Phone: [facility] Comment on above: hasnt taken medication yet today 06-11-2024 14:12-0400 Heart rate 72 /min Merari Camarillo MD Work Phone: [facility] 06-11-2024 14:12-0400 Respiratory rate 16 /min Merari Camarillo MD Work Phone: [facility] 06-11-2024 14:12-0400 SaO2% (BldA) [Mass fraction] 100 % Merari Camarillo MD Work Phone: [facility] 06-11-2024 14:12-0400 Systolic blood pressure 180 mm[Hg] Merari Camarillo MD Work Phone: [facility] Comment on above: hasnt taken medication yet today 01-08-2024 16:42-0500 Body height 162.6 cm Isabel Davenport MD Work Phone: [facility] 01-08-2024 16:42-0500 Body weight 94 kg Isabel Davenport MD Work Phone: [facility] 01-08-2024 16:42-0500 Diastolic blood pressure 104 mm[Hg] Isabel Davenport MD Work Phone: [facility] 01-08-2024 16:42-0500 Heart rate 79 /min Isabel Davenport MD Work Phone: [facility] 01-08-2024 16:42-0500 SaO2% (BldA) [Mass fraction] 98 % Isabel Davenport MD Work Phone: [facility] 01-08-2024 16:42-0500 Systolic blood pressure 164 mm[Hg] Isabel Davenport MD Work Phone: [facility] 12-31-2023 16:19-0500 Body height 162.6 cm Isabel Davenport MD Work Phone: [facility] 01-29-2023 14:25-0400 Body height 162.6 cm Brianda Vetovitz PA-C Work Phone: [facility] 01-29-2023 14:25-0400 Body weight 95.25 kg Brianda Vetovitz PA-C Work Phone: [facility] 12-25-2022 08:41-0500 Body height 162.6 cm Merari Camarillo MD Work Phone: [facility] 12-25-2022 08:41-0500 Body weight 95.25 kg eMrari Camarillo MD Work Phone: [facility] 12-25-2022 08:41-0500 Diastolic blood pressure 100 mm[Hg] Merari Camarillo MD Work Phone: [facility] 12-25-2022 08:41-0500 Heart rate 72 /min Merari Camarillo MD Work Phone: [facility] 12-25-2022 08:41-0500 Respiratory rate 18 /min Merari Camarillo MD Work Phone: [facility] 12-25-2022 08:41-0500 SaO2% (BldA) [Mass fraction] 98 % Merari Camarillo MD Work Phone: [facility] 12-25-2022 08:41-0500 Systolic blood pressure 146 mm[Hg] Merari Camarillo MD Work Phone: [facility] 11-20-2022 11:27-0500 Body height 166 cm Isabel Davenport MD Work Phone: [facility] 11-20-2022 11:27-0500 Body weight 94.35 kg Isabel Davenport MD Work Phone: [facility] 11-20-2022 11:27-0500 Diastolic blood pressure 80 mm[Hg] Isabel Davenport MD Work Phone: [facility] 11-20-2022 11:27-0500 Heart rate 78 /min Isabel Davenport MD Work Phone: [facility] 11-20-2022 11:27-0500 Systolic blood pressure 150 mm[Hg] Isabel Davenport MD Work Phone: [facility] 10-22-2022 22:41-0500 Diastolic blood pressure 87 mm[Hg] [facility] Work Phone: 10-22-2022 22:41-0500 Heart rate 65 /min [facility] Work Phone: 10-22-2022 22:41-0500 Respiratory rate 16 /min [facility] Work Phone: 10-22-2022 22:41-0500 SaO2% (BldA) [Mass fraction] 100 % [facility] Work Phone: 10-22-2022 22:41-0500 Systolic blood pressure 152 mm[Hg] [facility] Work Phone: 10-22-2022 20:17-0500 Body height 162.56 cm [facility] Work Phone: 10-22-2022 20:17-0500 Body mass index (BMI) [Ratio] 35.1 kg/m2 [facility] Work Phone: 10-22-2022 20:17-0500 Body temperature 96 [degF] [facility] Work Phone: 10-22-2022 20:17-0500 Body weight 92.85 kg [facility] Work Phone: 09-05-2022 18:17-0400 Body temperature 98.4 [degF] Jaspreet Pendlebury RETAIL BUSINESS ANALYST.APPLICATION INFRASTRUCTURE ENGINEER Work Phone: [facility] 09-05-2022 18:17-0400 Body weight 94.35 kg Jaspreet Pendlebury RETAIL BUSINESS ANALYST.APPLICATION INFRASTRUCTURE ENGINEER Work Phone: [facility] 09-05-2022 18:17-0400 Diastolic blood pressure 80 mm[Hg] Jaspreet Pendlebury RETAIL BUSINESS ANALYST.APPLICATION INFRASTRUCTURE ENGINEER Work Phone: [facility] 09-05-2022 18:17-0400 Heart rate 98 /min Jaspreet Pendlebury RETAIL BUSINESS ANALYST.APPLICATION INFRASTRUCTURE ENGINEER Work Phone: [facility] 09-05-2022 18:17-0400 Respiratory rate 16 /min Jaspreet Pendlebury RETAIL BUSINESS ANALYST.APPLICATION INFRASTRUCTURE ENGINEER Work Phone: [facility] 09-05-2022 18:17-0400 SaO2% (BldA) [Mass fraction] 98 % Jaspreet Pendlegenevieve RETAIL BUSINESS ANALYST.APPLICATION INFRASTRUCTURE ENGINEER Work Phone: [facility] 09-05-2022 18:17-0400 Systolic blood pressure 124 mm[Hg] Jaspreet Pendlegenevieve RETAIL BUSINESS ANALYST.APPLICATION INFRASTRUCTURE ENGINEER Work Phone: [facility] 07-21-2022 10:31-0400 Body height 162.6 cm Parish Koch MD Work Phone: [facility] 07-21-2022 10:31-0400 Body weight 93.89 kg Parish Koch MD Work Phone: [facility] 07-21-2022 10:31-0400 Diastolic blood pressure 89 mm[Hg] Parish Koch MD Work Phone: [facility] 07-21-2022 10:31-0400 Heart rate 74 /min Parish Koch MD Work Phone: [facility] 07-21-2022 10:31-0400 SaO2% (BldA) [Mass fraction] 99 % Parish Koch MD Work Phone: [facility] 07-21-2022 10:31-0400 Systolic blood pressure 134 mm[Hg] Parish Koch MD Work Phone: [facility] 06-14-2022 10:43-0400 Body height 162.6 cm Merari Camarillo MD Work Phone: [facility] 06-14-2022 10:43-0400 Body weight 93.89 kg Merari Camarillo MD Work Phone: [facility] 06-14-2022 10:43-0400 Diastolic blood pressure 84 mm[Hg] Merari Camarillo MD Work Phone: [facility] 06-14-2022 10:43-0400 Heart rate 73 /min Merari Camarillo MD Work Phone: [facility] 06-14-2022 10:43-0400 Respiratory rate 18 /min Merari Camarillo MD Work Phone: [facility] 06-14-2022 10:43-0400 SaO2% (BldA) [Mass fraction] 97 % Merari Camarillo MD Work Phone: [facility] 06-14-2022 10:43-0400 Systolic blood pressure 134 mm[Hg] Merari Camarillo MD Work Phone: [facility] 03-14-2022 07:59-0400 Body height 162.6 cm Jennie Sosa APRN.APPLICATION INFRASTRUCTURE ENGINEER Work Phone: [facility] 03-14-2022 07:59-0400 Body weight 93.89 kg Jennie Sosa APRN.APPLICATION INFRASTRUCTURE ENGINEER Work Phone: [facility] 03-14-2022 07:59-0400 Diastolic blood pressure 88 mm[Hg] Jennie Sosa RETAIL BUSINESS ANALYST.APPLICATION INFRASTRUCTURE ENGINEER Work Phone: [facility] 03-14-2022 07:59-0400 Heart rate 77 /min Jennie Sosa RETAIL BUSINESS ANALYST.APPLICATION INFRASTRUCTURE ENGINEER Work Phone: [facility] 03-14-2022 07:59-0400 Respiratory rate 18 /min Jennie Sosa RETAIL BUSINESS ANALYST.APPLICATION INFRASTRUCTURE ENGINEER Work Phone: [facility] 03-14-2022 07:59-0400 SaO2% (BldA) [Mass fraction] 98 % Jennie Sosa RETAIL BUSINESS ANALYST.APPLICATION INFRASTRUCTURE ENGINEER Work Phone: [facility] 03-14-2022 07:59-0400 Systolic blood pressure 132 mm[Hg] Jennie Sosa RETAIL BUSINESS ANALYST.APPLICATION INFRASTRUCTURE ENGINEER Work Phone: [facility] 02-18-2022 13:45-0400 Body temperature 97.2 [degF] Danette Lopez RETAIL BUSINESS ANALYST.APPLICATION INFRASTRUCTURE ENGINEER Work Phone: [facility] 02-18-2022 13:45-0400 Body weight 97.61 kg Danette Lopez RETAIL BUSINESS ANALYST.APPLICATION INFRASTRUCTURE ENGINEER Work Phone: [facility] 02-18-2022 13:45-0400 Diastolic blood pressure 74 mm[Hg] Danette Lopez RETAIL BUSINESS ANALYST.APPLICATION INFRASTRUCTURE ENGINEER Work Phone: [facility] 02-18-2022 13:45-0400 Heart rate 70 /min Danette Lopez RETAIL BUSINESS ANALYST.APPLICATION INFRASTRUCTURE ENGINEER Work Phone: [facility] 02-18-2022 13:45-0400 Respiratory rate 18 /min Danette Lopez RETAIL BUSINESS ANALYST.APPLICATION INFRASTRUCTURE ENGINEER Work Phone: [facility] 02-18-2022 13:45-0400 SaO2% (BldA) [Mass fraction] 97 % Danette Lopez RETAIL BUSINESS ANALYST.APPLICATION INFRASTRUCTURE ENGINEER Work Phone: [facility] 02-18-2022 13:45-0400 Systolic blood pressure 130 mm[Hg] Danette Lopez RETAIL BUSINESS ANALYST.APPLICATION INFRASTRUCTURE ENGINEER Work Phone: [facility] Encounters Encounter Date Encounter Type Care Provider Facility Start: 08-03-2025 End: 08-03-2025 ambulatory NANCY UP Facility:[facility] Start: 07-16-2025 End: 07-16-2025 Subsequent hospital visit by physician Marcel [facility] Work Phone: Radiology Comment on above: Right-sided chest pa in [R07.9] Start: 07-16-2025 End: 07-16-2025 Office outpatient visit 25 minutes Rivera Gandhi RETAIL BUSINESS ANALYST.APPLICATION INFRASTRUCTURE ENGINEER Work Phone: [facility] Comment on above: Right-sided chest pa in (Primary Dx) Start: 07-16-2025 End: 07-16-2025 ambulatory RIVERA GANDHI Facility:[facility] Start: 06-16-2025 End: 06-18-2025 Telephone encounter Belén Alcala MD Work Phone: [facility] Cardiology [place] Comment on above: Preparations For Pro cedures Start: 06-05-2025 End: 06-08-2025 Refill Farnaz Flores RETAIL BUSINESS ANALYST.APPLICATION INFRASTRUCTURE ENGINEER Work Phone: [facility] Comment on above: Refill Request Start: 06-03-2025 End: 06-03-2025 ambulatory Isabel Davenport MD Work Phone: [facility] Comment on above: FMLA Start: 06-01-2025 End: 06-01-2025 Patient encounter procedure Vidhya Rich PA-C Work Phone: Dermatology Comment on above: Other allergic conta ct dermatitis (Primary Dx); Cracked lips Start: 06-01-2025 End: 06-01-2025 ambulatory VIDHAY RICH Facility:[facility] Start: 05-25-2025 End: 05-25-2025 Patient encounter procedure Antonio Christina OD Work Phone: Ophthalmology Comment on above: Type 2 diabetes tavo itus without retinopathy (HCC) (Primary Dx); Homonymous hemianopsia, left Start: 05-25-2025 End: 05-25-2025 ambulatory ANTONIO DAISHACAROLINE Facility:[facility] Start: 05-23-2025 End: 05-25-2025 ambulatory Elizabeth Pereira MD Work Phone: Allergy Comment on above: [place] product enzyme Start: 05-08-2025 End: 05-11-2025 Refill Vadim Teixeira APRN.APPLICATION INFRASTRUCTURE ENGINEER Work Phone: [facility] Comment on above: Refill Request Start: 04-30-2025 Encounter for preprocedural cardiovascular examination [facility] Start: 04-29-2025 Encounter for other preprocedural examination [facility] Start: 04-27-2025 End: 04-27-2025 Office outpatient visit 25 minutes Vadim Teixeira APRN.APPLICATION INFRASTRUCTURE ENGINEER Work Phone: [facility] Comment on above: ETD (Eustachian tube dysfunction), left (Primary Dx); Pre-op evaluation; Type 2 diabetes mellitus without complication, without long-term current use of insulin ([facility]) Start: 04-27-2025 End: 04-27-2025 Preprocedural examination done Vadim Teixeira APRN.APPLICATION INFRASTRUCTURE ENGINEER Work Phone: [facility] Start: 04-27-2025 End: 04-27-2025 ambulatory VADIM TEIXEIRA Facility:[facility] Start: 04-27-2025 Encounter for other preprocedural examination VADIM TEIXEIRA [facility] Start: 04-24-2025 End: 04-24-2025 Follow-up encounter Isabel Davenport MD Work Phone: [facility] Start: 04-24-2025 End: 04-28-2025 Telephone encounter Isabel Davenport MD Work Phone: [facility] Comment on above: Received Outside Med ical Records ([facility] Copy of labs ordered by Dr Melissa 04/24/2025) Start: 04-24-2025 End: 04-24-[address] Jaspreet Davenport MD Work Phone: [facility] Work Phone: Start: 04-24-2025 End: 04-24-[address] Dandre Melissa MD -Laboratory Work Phone: Start: 04-24-2025 End: 04-24-2025 ambulatory [facility] Facility:[facility] Start: 04-21-2025 End: 04-21-2025 Telephone encounter Isabel Davenport MD Work Phone: [facility] Comment on above: Received Outside Med ical Records ([facility] EKG) Start: 04-21-2025 End: 04-21-2025 Office outpatient visit 25 minutes Elizabeth Pereira MD Work Phone: Allergy Comment on above: Chronic idiopathic u rticaria (Primary Dx); Angioedema, subsequent encounter; Cracked lips; Adverse reaction to food, subsequent encounter Start: 04-21-2025 End: 04-21-2025 ambulatory ELIZABETH PEREIRA Facility:[facility] Start: 04-20-2025 End: 04-20-2025 Non-patient / Non-visit Dr. Yoav Navas MD -[employer] Work Phone: Start: 04-20-2025 End: 04-20-[address] Jaspreet Davenport MD Work Phone: [facility] Work Phone: Start: 04-20-2025 End: 04-20-[address] Dandre Melissa MD -Pulmonary Services/Neurology Work Phone: Start: 04-20-2025 End: 04-20-2025 ambulatory [facility] Facility:[facility] Start: 04-10-2025 End: 04-10-2025 Telephone encounter Phyllis Bernardo APRN.CNP Work Phone: [facility] Comment on above: Cardiac Clearance Start: 04-09-2025 End: 04-09-2025 Telephone encounter Isabel Davenport MD Work Phone: [facility] Comment on above: Received Outside Med ical Records ([facility] imaging ) Start: 04-08-2025 End: 04-08-[address] Jaspreet Davenport MD Work Phone: [facility] Work Phone: Start: 04-08-2025 End: 04-08-[address] Dandre Melissa MD -Cat Scan [facility] Work Phone: Start: 04-08-2025 End: 04-08-2025 ambulatory Dandre Melissa Facility:[facility] Start: 03-13-2025 End: 03-13-2025 Telephone encounter Isabel Davenport MD Work Phone: [facility] Start: 03-09-2025 End: 05-09-2025 Follow-up encounter Vadim Teixeira APRN.CNP Work Phone: [facility] Start: 03-09-2025 ambulatory ISABEL Neff ty:[facility] Start: 03-09-2025 End: 03-09-2025 Subsequent hospital visit by physician Jemima Winn MD Work Phone: Ambulatory Surgery Comment on above: Positive fecal occul t blood test [R19.5] Start: 03-03-2025 End: 03-03-2025 ambulatory Isabel Davenport MD Work Phone: [facility] Comment on above: Fax number Start: 03-03-2025 End: 03-04-2025 Telephone encounter Keaton Wade MD Work Phone: Ambulatory Surgery Comment on above: Appointment Patient Update Start: 03-02-2025 End: 05-02-2025 Follow-up encounter Isabel Davenport MD Work Phone: [facility] Start: 02-27-2025 ambulatory ISABEL Neff ty:[facility] Start: 02-23-2025 End: 02-23-2025 Telephone encounter Belén Alcala MD Work Phone: [facility] Comment on above: 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 - [employer] Start: 02-16-2025 End: 02-23-2025 Telephone encounter Phyllis Bernardo APRN.APPLICATION INFRASTRUCTURE ENGINEER Work Phone: [facility] Comment on above: Appointment Start: 02-16-2025 End: 02-16-2025 Patient encounter procedure Phyllis Bernardo APRN.APPLICATION INFRASTRUCTURE ENGINEER Work Phone: [facility] Comment on above: PFO (patent foramen ovale) (HCC) (Primary Dx); Essential (primary) hypertension; Mixed hyperlipidemia Start: 02-16-2025 End: 02-16-2025 ambulatory PHYLLIS BERNARDO Facility:[facility] Start: 02-03-2025 End: 02-03-2025 Telephone encounter Isabel Davenport MD Work Phone: [facility] Comment on above: Received Outside [employer] Records ([employer] [facility] Certification of Health Care provider for employees serious health condition 02/03/2025) Start: 01-29-2025 End: 01-29-2025 Refill Isabel Davenport MD Work Phone: [facility] Comment on above: Refill Request Start: 01-15-2025 End: 01-15-2025 ambulatory ISABEL DAVENPORT Facility:[facility] Start: 01-15-2025 End: 01-15-2025 Office outpatient new 45 minutes Elizabeth Pereira MD Work Phone: Allergy Comment on above: Chronic idiopathic u rticaria (Primary Dx); Angioedema, initial encounter; Adverse food reaction, initial encounter Start: 01-05-2025 End: 03-07-2025 Follow-up encounter Isabel Davenport MD Work Phone: Family Medicine Start: 01-05-2025 End: 01-05-2025 ambulatory ISABEL DAVENPORT Facility:[facility] Start: 01-05-2025 End: 01-05-2025 Office outpatient visit 25 minutes Isabel Davenport MD Work Phone: [facility] Comment on above: Type 2 diabetes tavo [...] Start: 01-02-2025 End: 01-02-2025 ambulatory VADIM TEIXEIRA Facility:[facility] Start: 12-25-2024 End: 12-25-2024 Telephone encounter Isabel Davenport MD Work Phone: [facility] Comment on above: 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 (Dannie finch ) Start: 12-23-2024 End: 12-26-2024 ambulatory Isabel Davenport MD Work Phone: Internal Medicine [place] [id number] Start: 12-17-2024 End: 12-19-2024 ambulatory Isabel Davenport MD Work Phone: [facility] Start: 11-12-2024 End: 11-12-2024 Telephone encounter Jorge Hobson MD Work Phone: [facility] Comment on above: Results (COVID+) Start: 11-11-2024 End: 11-11-2024 Subsequent hospital visit by physician Xr [facility] Melissa Work Phone: Radiology Comment on above: Acute cough [R05.1] Start: 11-11-2024 End: 11-11-2024 ambulatory ISABEL DAVENPORT Facility:[facility] Start: 11-11-2024 End: 11-11-2024 Patient encounter procedure Eneida GREENWOOD Work Phone: [facility] Comment on above: Acute cough (Primary Dx); URI, acute Start: 09-13-2024 End: 09-15-2024 Refill Isabel Davenport MD Work Phone: [facility] Comment on above: Refill Request Start: 07-04-2024 End: 07-04-2024 Refill Farnaz Flores APRN.CNP Work Phone: [facility] Comment on above: Refill Request Start: 06-11-2024 End: 06-11-2024 Patient encounter procedure Merari Camarillo MD Work Phone: [facility] Comment on above: History of CVA (cere brovascular accident) (Primary Dx); Primary hypertension; Mixed hyperlipidemia Start: 05-11-2024 Refill Isabel chan MD Work Phone: [facility] Comment on above: Refill Request Start: 04-16-2024 ambulatory Isabel chan MD Work Phone: [facility] Comment on above: lab Start: 04-16-2024 E-mail encounter fro m caregiver Isabel Davenport MD Work Phone: [facility] Start: 04-08-2024 End: 04-08-2024 Patient encounter procedure Fernando Bakaristeve OD Work Phone: [facility] Comment on above: Low vision right eye category 1, low vision left eye category 1 (Primary Dx); Homonymous hemianopsia, left; Occipital stroke (HCC); Presbyopia Start: 03-28-2024 End: 03-28-2024 Patient encounter procedure Antonio Christina OD Work Phone: Ophthalmology Comment on above: Type 2 diabetes tavo itus without retinopathy (HCC) (Primary Dx); Homonymous hemianopsia, left Start: 02-29-2024 ambulatory Isabel chan MD Work Phone: [facility] Start: 02-29-2024 E-mail encounter fro m caregiver Isabel Davenport MD Work Phone: [facility] Start: 02-27-2024 ambulatory Isabel chan MD Work Phone: [facility] Comment on above: Wellness Screening F rom Start: 02-27-2024 Documentation procedure Mammog hamlet Coordinator [facility] Department Start: 02-27-2024 Letter encounter Mammography Coordinator [facility] Start: 02-26-2024 End: 02-26-2024 Subsequent hospital visit by physician Screen Mammo [facility] Start: 01-08-2024 End: 01-08-2024 Patient encounter procedure Isabel Davenport MD Work Phone: [facility] Comment on above: Cerebrovascular acci dent (CVA) [...] Merari lemos MD Work Phone: [facility] Comment on above: Results Start: 01-06-2024 ambulatory Hermelinda SALDANA [employer] Comment on above: Patient Question Start: 12-31-2023 End: 12-31-2023 Patient encounter procedure Isabel Davenport MD Work Phone: [facility] Comment on above: NO SHOW (Primary Dx) Start: 12-30-2023 Refill Isabel chan MD Work Phone: [facility] Comment on above: Refill Request Start: 04-10-2023 Refill Merari Israel Work Phone: [facility] Comment on above: Refill Request Start: 03-27-2023 Telephone encounter Isabel Davenport MD Work Phone: [facility] Comment on above: Received Outside [facility] Records ([facility] Emergency Department Summary 03/25/2023) Start: 03-06-2023 End: 03-06-2023 ambulatory Johny Flores PT Work Phone: [facility] Comment on above: Leg length discrepan cy (Primary Dx) Start: 02-19-2023 Orders Only Sheron Albert nn RETAIL BUSINESS ANALYST.APPLICATION INFRASTRUCTURE ENGINEER Work Phone: Cardiology Comment on above: PFO (patent foramen ovale) (Primary Dx) Start: 02-15-2023 Refill Merari Israel Work Phone: [facility] Comment on above: Refill Request Start: 02-15-2023 End: 02-15-2023 ambulatory Johny Flores PT [facility] Comment on above: Leg length discrepan cy (Primary Dx) Start: 02-02-2023 ambulatory Isabel chan MD Work Phone: Family Practice Comment on above: Prescription [employer] p Sticker [...] Start: 01-26-2023 End: 01-26-2023 Follow-up encounter Rem [facility] Comment on above: Remote Pacemaker Fol low Up Start: 01-26-2023 End: 01-26-2023 Patient encounter procedure Rem Device [facility] Start: 01-05-2023 Documentation procedure Mammog hamlet Coordinator [facility] Start: 01-05-2023 Letter encounter Mammography Coordinator [facility] Start: 01-01-[address] [facility] Fifi Calderón MD Work Phone: Cardiology Comment on above: After Surgery/Return to work Start: 01-01-2023 ambulatory Fifi preciado MD Work Phone: [facility] Start: 01-01-2023 Telephone encounter Merari lemos MD Work Phone: [facility] Comment on above: Patient Question (As ked why appointment Dr. Duffy) Start: 12-29-[address] [facility] Fifi Calderón MD Work Phone: Cardiology Comment on above: After Surgery/Return to work Start: 02-24-2023 ambulatory Fifi preciado MD Work Phone: [facility] Start: 12-27-2022 End: 12-27-2022 Follow-up encounter Rem [facility] Comment on above: Remote ILR Follow Up Start: 12-27-2022 End: 12-27-2022 Patient encounter procedure Rem Device [facility] Start: 12-26-[address] [facility] Fifi Calderón MD Work Phone: Cardiology Comment on above: After Surgery/Return to work Start: 12-26-2022 ambulatory Fifi preciado MD Work Phone: [facility] Start: 12-25-2022 End: 12-25-2022 Patient encounter procedure Merari Camarillo MD Work Phone: [facility] [place] Comment on above: Primary hypertension (Primary Dx); Mixed hyperlipidemia; Recurrent cerebrovascular accidents (CVAs) (HCC) Start: 12-19-[address] [facility] Fifi Calderón MD Work Phone: Cardiology Comment on above: Reply: After Surgery Start: 12-19-2022 ambulatory Fifi preciado MD Work Phone: [facility] Start: 12-15-[address] [facility] Fifi Calderón MD Work Phone: Cardiology Comment on above: After Surgery/Return to work Start: 12-15-2022 ambulatory Fifi preciado MD Work Phone: [facility] Start: 12-10-2022 Telephone encounter Fifi emanuel MD Work Phone: Cardiology Comment on above: Education Of Patient /family Start: 11-27-2022 End: 11-27-2022 [facility] Comment on above: Remote ILR Follow Up Start: 11-27-2022 End: 11-27-2022 Patient encounter procedure Rem Device [facility] Start: 11-20-2022 End: 11-20-2022 Patient encounter procedure Isabel Davenport MD Work Phone: [facility] Comment on above: Essential hypertensi on [...] above: Refill Request Start: 11-10-2022 Refill Vadim Trent PRN.CNP Work Phone: [facility] Comment on above: Refill Request Start: 10-28-2022 End: 11-01-2022 Follow-up encounter Rem [facility] Comment on above: Remote ILR Follow Up Start: 10-28-2022 End: 11-01-2022 Patient encounter procedure Rem Device [facility] Start: 10-23-2022 Telephone encounter Isabel Davenport MD Work Phone: [facility] Comment on above: Received Outside [facility] Records ([facility]) Start: 10-22-2022 End: 10-22-2022 Emergency department patient visit [facility]-Emergency Department Start: 10-22-2022 Refill Zenobia malik PA-C Work Phone: [facility] Comment on above: Refill Request Start: 09-28-2022 End: 09-28-2022 Follow-up encounter Rem [facility] Comment on above: Remote Pacemaker Fol low Up Start: 09-28-2022 End: 09-28-2022 Patient encounter procedure Rem Device [facility] Start: 09-09-2022 End: 09-10-2022 ambulatory Covid Vaccine [facility] COVID Vaccine Comment on above: Arrived Start: 09-05-2022 End: 09-05-2022 Patient encounter procedure Jaspreet Acuña APRN.APPLICATION INFRASTRUCTURE ENGINEER Work Phone: [facility] Comment on above: Suspected COVID-19 v irus infection (Primary Dx); Acute maxillary sinusitis, recurrence not specified Start: 08-29-2022 End: 08-29-2022 Follow-up encounter Rem [facility] Comment on above: Remote ILR Follow Up Start: 08-29-2022 End: 08-29-2022 Patient encounter procedure Rem Device [facility] Start: 08-12-2022 End: 08-12-2022 ambulatory Covid Vaccine [facility] COVID Vaccine Comment on above: Arrived Start: 08-12-2022 End: 08-13-2022 ambulatory ISABEL DAVENPORT Facility:[facility] Start: 08-02-2022 Orders Only Fifi preciado MD Work Phone: Cardiology Comment on above: Primary hypertension (Primary Dx) Start: 07-21-2022 End: 07-21-2022 Patient encounter procedure Parish Koch MD Work Phone: [facility] [place] Comment on above: PFO (patent foramen ovale) (Primary Dx); Primary hypertension; Mixed hyperlipidemia; 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, unspecified blood vessel laterality (HCC) Start: 07-14-2022 Telephone encounter Isabel Davenport MD Work Phone: [facility] Comment on above: Orders Start: 07-12-2022 End: 07-12-2022 Patient encounter procedure Antonio Sanford OD Work Phone: Ophthalmology Comment on above: Homonymous hemianops ia, left (Primary Dx); Occipital stroke (HCC); Type 2 diabetes mellitus without retinopathy (HCC); Presbyopia Start: 06-30-2022 End: 06-30-2022 Follow-up encounter Rem [facility] Comment on above: Remote ILR Follow Up Start: 06-30-2022 End: 06-30-2022 Patient encounter procedure Rem Device [facility] Start: 06-14-2022 End: 06-14-2022 Patient encounter procedure Merari Camarillo MD Work Phone: [facility] Comment on above: History of stroke (P rimary Dx); Essential hypertension; PFO (patent foramen ovale); Mixed hyperlipidemia Start: 06-13-2022 ambulatory Isabel chan MD Work Phone: [facility] Start: 05-03-2022 ambulatory Isabel chan MD Work Phone: [facility] Start: 04-01-2022 End: 04-01-2022 Follow-up encounter [facility] Comment on above: Remote ILR Follow Up Start: 04-01-2022 End: 04-01-2022 Patient encounter procedure Rem Device [facility] Start: 03-15-2022 Telephone encounter Jennie mckeon RETAIL BUSINESS ANALYST.APPLICATION INFRASTRUCTURE ENGINEER Work Phone: [facility] Comment on above: Cardiac Clearance Start: 03-14-2022 End: 03-14-2022 Patient encounter procedure Jennie Sosa RETAIL BUSINESS ANALYST.APPLICATION INFRASTRUCTURE ENGINEER Work Phone: [facility] Comment on above: Pre-operative cardio vascular examination (Primary Dx); Essential hypertension; Mixed hyperlipidemia; PFO (patent foramen ovale); Cerebrovascular accident (CVA), unspecified mechanism (HCC) Start: 03-14-2022 End: 03-14-2022 Patient encounter status Jennie Sosa RETAIL BUSINESS ANALYST.APPLICATION INFRASTRUCTURE ENGINEER Work Phone: [facility] Start: 03-02-2022 End: 03-02-2022 Follow-up encounter [facility] Comment on above: Remote Pacemaker Fol low Up Start: 03-02-2022 End: 03-02-2022 Patient encounter procedure Rem Device [facility] Start: 03-01-2022 Telephone encounter Merari lemos MD Work Phone: [facility] Comment on above: Cardiac Clearance Start: 02-18-2022 End: 02-18-2022 Patient encounter procedure Danette Lopez RETAIL BUSINESS ANALYST.APPLICATION INFRASTRUCTURE ENGINEER Work Phone: [facility] Comment on above: Dermatitis (Primary Dx); Chronic right shoulder pain Start: 03-31-2021 Patient encounter status Paty Lopez RETAIL BUSINESS ANALYST.APPLICATION INFRASTRUCTURE ENGINEER Work Phone: [facility] Work Phone: Start: 05-14-2019 Patient encounter procedure MERARI MARQUISE Facility:[facility] Start: 05-05-2019 Patient encounter procedure FERNANDO Alvares ALISON Facility:[facility] Start: 03-03-2019 End: 03-03-2019 Patient encounter procedure CORTEZ FORRESTER Facility:[facility] Start: 02-05-2019 End: 02-05-2019 Patient encounter procedure MERARI CAMARILLO Facility:[facility] Start: 01-19-2019 Evaluation and management of inpatient UNKNOWN PROVIDER [facility] Start: 01-16-2019 End: 01-16-2019 Emergency department patient visit UNKNOWN PROVIDER [facility] Procedures Date Procedure Procedure Detail Performing Clinician Start: 07-16-2025 Radex ribs uni w/posteroant ch minimum 3 views Rivera Gandhi RETAIL BUSINESS ANALYST.APPLICATION INFRASTRUCTURE ENGINEER Work Phone: Start: 05-25-2025 Computerized ophthalmic imaging retina Antonio Christina OD Work Phone: Start: 04-27-2025 Hemoglobin A1c/Hemoglobin.total in Blood Vadim Teixeira RETAIL BUSINESS ANALYST.APPLICATION INFRASTRUCTURE ENGINEER Work Phone: Start: 04-24-2025 BMP - EXTERNAL [facility] Provider Start: 04-24-2025 CBC panel - Blood by Automated count [facility] Provider Start: 04-08-[address] Jaspreet Israel Work Phone: Start: 03-09-2025 Colonoscopy flx dx w/collj spec when pfrmd Vadim Teixeira RETAIL BUSINESS ANALYST.APPLICATION INFRASTRUCTURE ENGINEER Work Phone: Start: 03-09-2025 Colonoscopy Jemima Winn [...] 09-05-2022 COVID WITH FLUA+B, ROUTINE Jaspreet Acuña APRNPatrickAPPLICATION INFRASTRUCTURE ENGINEER Work Phone: Start: 08-12-2022 P[employer] COVID-19 PRIMARY SERIES VACCINE, AGE 12+ YR Sj Mccarthy MD Work Phone: Start: 07-12-2022 Visual field xm uni/bi w/interp extended exam Antonio Christina OD Work Phone: Start: 03-19-2018 Mammography Danette Lopez RETAIL BUSINESS ANALYST.C BOARD MACHINE SET UP OPERATOR Work Phone: H/O: surgery History of loop recorder Belén Alcala MD Work Phone: Plan of Treatment Date Care Activity Detail Author Start: 05-25-2026 Glaucoma screening Dilated Retinal Exam [facility] Start: 04-27-2026 Annual PCP Team Chronic Disease Visit Annual PCP Team Chronic Disease Visit [facility] Start: 03-09-2026 Screening for malignant neoplasm of colon [facility] Start: 02-27-2026 Screening for malignant neoplasm of breast Mammogram Screening [facility] Start: 02-16-2026 BP Controlled (<130/80) BP Controlled (<130/80) [facility] in Start: 02-10-2026 Screening for malignant neoplasm of colon [facility] Start: 01-05-2026 Annual PCP Team Chronic Disease Visit Annual PCP Team Chronic Disease Visit [facility] Start: 01-05-2026 Diabetic foot examination Diabetic Foot Exam [facility] Start: 01-02-2026 Hepatitis B surface antibody level LDL Cholesterol [facility] Start: 09-28-2025 End: 09-28-2025 Patient encounter procedure 09/28/2025 9:00 AM EST Office Visit [facility] [address] [place] [address] Merari Camarillo MD [address] [place], [place] [id number] 6 month follow up [facility] Comment on above: 6 month follow up Start: 09-15-2025 Subsequent hospital visit by physician 09/15/2025 Hospital Encounter [address] [place] [address] Belén Alcala MD [address] [place] [id number] History of loop recorder [Z98.890] [facility] Comment on above: History of loop recorder [Z98.890] Start: 08-31-2025 Subsequent hospital visit by physician 08/31/2025 Hospital Encounter [address] [address] Belén Alcala MD [address] [address] [place] [address] History of loop recorder [Z98.890] [facility] Comment on above: History of loop recorder [Z98.890] Start: 08-17-2025 End: 08-17-2025 Patient encounter procedure Dermatology Comment on above: Patch Testing Consult Start: 08-03-2025 End: 08-03-2025 Patient encounter procedure Dermatology [facility] Comment on above: Cracked lips [K13.0] XR FOOT GENERAL 3V A P/LAT/OBL LEFT Left bottom of foot. Lump about the size of a kidney mtz in the arch Start: 07-28-2025 Hemoglobin A1c measurement HbA1C [facility] Start: 07-20-2025 Subsequent hospital visit by physician 07/20/2025 Hospital Encounter [address] [address] Belén Alcala MD [address] [place] [address] (Fax) History of loop recorder [Z98.890] [facility] Comment on above: History of loop recorder [Z98.890] Start: 07-06-2025 Influenza vaccination [facility] Start: 06-23-2025 Subsequent hospital visit by physician 06/23/2025 Hospital Encounter [address] [address] Belén Alcala MD [address] [place] [address] (Fax) History of loop recorder [Z98.890] [facility] Comment on above: History of loop recorder [Z98.890] Start: 06-22-2025 Subsequent hospital visit by physician 06/22/2025 Hospital Encounter [address] [address] Belén Alcala MD [address] [place] [address] (Fax) History of loop recorder [Z98.890] [facility] Comment on above: History of loop recorder [Z98.890] Start: 06-11-2025 End: 06-11-2025 Patient encounter procedure 06/11/2025 7:20 AM EDT Office Visit Dermatology [address] [id number] Vidhya Rich PA-C [address] [place] [address] Cracked lips [K13.0] Dermatology Comment on above: Cracked lips [K13.0] Start: 05-25-2025 End: 05-25-2025 Patient encounter procedure 05/25/2025 8:15 AM EDT Office Visit [facility] Ophthalmology [address] [place] [address] Antonio Christina OD [address] [place] [address] Annual dilated eye exam Ophthalmology Comment on above: Annual dilated eye exam Start: 04-27-2025 End: 04-27-2025 Patient encounter procedure 04/27/2025 1:40 PM EDT Office Visit Family Practice [address] [place], [place] [phone] Vadim Teixeira APRN.APPLICATION INFRASTRUCTURE ENGINEER [address] [place], [place] [address] pre op exam [facility] Comment on above: pre op exam Start: 04-21-2025 End: 07-21-2025 ALGN RED DYE IGE ALGN RED DYE IGE Lab Routine Cracked lips Expected: 04/21/2025, Expires: 07/21/2025 [facility] Work Phone: Comment on above: Expected: 04/21/2025, Expires: Start: 04-21-2025 End: 04-21-2025 Patient encounter procedure 04/21/2025 10:30 AM EDT Office Visit Allergy [address] [place] [address] [place] [address] [place] [address] HIVES FOLLOW UP Allergy Comment on above: HIVES FOLLOW UP Start: 04-14-2025 Hepatitis B screening Urine Albumin:Creatinine Ratio [facility] Start: 04-09-2025 Subsequent hospital visit by physician 04/09/2025 Hospital Encounter [facility] [address] [place] [address] Belén Alcala MD [address] [place] [address] History of loop recorder [Z98.890] [facility] Comment on above: History of loop recorder [Z98.890] Start: 04-09-2025 End: 04-09-2025 Removal subcutaneous cardiac rhythm monitor REMOVAL SUBCUTANEOUS CARDIAC RHYTHM MONITOR History of loop recorder 04/09/2025 11:45 AM EDT [facility] Start: 04-01-2025 Hemoglobin A1c measurement HbA1C [facility] Start: 03-28-2025 Glaucoma screening Dilated Retinal Exam [facility] Start: 03-09-2025 End: 03-09-2025 Patient encounter procedure 03/09/2025 12:30 PM EDT Appointment Ambulatory Surgery [address] [place] [address] Positive fecal occult blood test [R19.5] Ambulatory Surgery Comment on above: Positive fecal occult blood test [R19.5] Start: 03-09-2025 End: 03-09-2025 Patient encounter procedure Ambulatory Surgery Comment on above: colonoscopy Positive fecal occul t blood test Start: 03-03-2025 End: 03-03-2025 Anesthesia consultation 03/03/2025 11:59 PM EDT Anesthesia Event Ambulatory Surgery [address] [place] [address] Miranda Hernandez, RETAIL BUSINESS ANALYST.HEALTH SAFETY AND ENVIRONMENT MANAGER [address] [place] [address] Ambulatory Surgery Start: 02-27-2025 End: 02-27-2025 Patient encounter procedure 02/27/2025 7:50 AM EDT Appointment Mammogram [address] [place] [address] Mammogram Start: 02-26-2025 End: 02-04-2026 MG Breast Screening THAD SCREENING Radiology Routine Screening mammogram for breast cancer Expected: 02/26/2025, Expires: 02/04/2026 [facility] Work Phone: Comment on above: Expected: 02/26/2025, Expires: Start: 02-25-2025 Screening for malignant neoplasm of breast Mammogram Screening [facility] Start: 02-16-2025 End: 02-16-2025 Patient encounter procedure 02/16/2025 10:00 AM EDT Office Visit [facility] [address] [place] [address] Phyllis Bernardo, RETAIL BUSINESS ANALYST.[facility] [address], [address] [place] [address] overdue 2 month follow up jt [facility] Comment on above: overdue 2 month follow up jt Start: 01-21-2025 End: 01-21-2025 Patient encounter procedure 01/21/2025 11:00 AM EDT Office Visit [facility] [address] [place] [address] Merari Camarillo MD [address], [address] [place] [address] overdue 2 month follow up [facility] Comment on above: overdue 2 month follow up Start: 01-07-2025 Annual PCP Team Chronic Disease Visit Annual PCP Team Chronic Disease Visit [facility] Start: 01-07-2025 Diabetic foot examination Diabetic Foot Exam [facility] Start: 01-06-2025 Hepatitis B surface antibody level LDL Cholesterol [facility] Start: 01-05-2025 End: 01-05-2025 Patient encounter procedure 01/05/2025 9:20 AM EST Office Visit Family Practice [address] [place] [address] [place] [address] Isabel Davenport MD [address] [place] [address] f/u Family Practice Comment on above: f/u Start: 01-02-2025 End: 01-02-2025 Results Only 01/02/2025 7:30 AM EST Results Only [facility] [address] [place] [address] 2 orders [facility] Comment on above: 2 orders Start: 12-31-2024 Annual PCP Team Chronic Disease Visit Annual PCP Team Chronic Disease Visit [facility] Start: 12-23-2024 End: 03-24-2025 CBC panel - Blood by Automated count COMPLETE BLOOD COUNT Lab Routine Diabetes mellitus (HCC) Expected: 12/23/2024, Expires: 03/24/2025 [facility] Work Phone: Comment on above: Expected: 12/23/2024, Expires: Start: 12-17-2024 End: 03-18-2025 Hemoglobin A1c in Blood HEMOGLOBIN A1C Lab Routine Type 2 diabetes mellitus without complication, without long-term current use of insulin (HCC) Expected: 12/17/2024, Expires: 03/18/2025 [facility] Comment on above: Expected: 12/17/2024, Expires: Start: 12-17-2024 End: 03-18-2025 Lipid 1996 panel - Serum or Plasma LIPID PANEL BASIC Lab Routine Mixed hyperlipidemia Expected: 12/17/2024, Expires: 03/18/2025 [facility] Work Phone: Comment on above: Expected: 12/17/2024, Expires: Start: 09-22-2024 End: 09-22-2024 Patient encounter procedure 09/22/2024 2:30 PM EST Office Visit [facility] [address] [facility] [address] [place], [place] [address] Jackie Smith, DALIA.APPLICATION INFRASTRUCTURE ENGINEER [address] [place] [address] 2 month follow up [facility] Stevie Comment on above: 2 month follow up Start: 07-15-2024 Hemoglobin A1c measurement HbA1C [facility] Start: 07-09-2024 End: 09-30-2025 [place] [facility] Imaging Routine Low vision right eye category 1, low vision left eye category 1 Homonymous hemianopsia, left Expected: 07/09/2024, Expires: 09/30/2025 [facility] Work Phone: Comment on above: Expected: 07/09/2024, Expires: Start: 07-06-2024 Covid-19 Vaccine ( season) Covid-19 Vaccine () [facility] Start: 07-06-2024 Influenza vaccination Influenza Vaccine (#1) [facility] Start: 06-11-2024 End: 06-11-2024 Patient encounter procedure [facility] Comment on above: Overdue 6 month f/u Start: 04-14-2024 End: 04-14-2024 ambulatory 04/14/2024 7:00 AM EDT Results Only [facility] [place] [facility] [address] [place] [address] Melissa [place]ard [facility] Start: 04-09-2024 End: 07-09-2024 ALBUMIN/CREAT RATIO RND UR ALBUMIN/CREAT RATIO RND UR Lab Routine Type 2 diabetes mellitus without complication, without long-term current use of insulin (HCC) Expected: 04/09/2024, Expires: 07/09/2024 [facility] Work Phone: Comment on above: Expected: 04/09/2024, Expires: Start: 04-09-2024 End: 07-09-2024 Comprehensive metabolic 2000 panel - Serum or Plasma COMP METABOLIC PANEL Lab Routine Type 2 diabetes mellitus without complication, without long-term current use of insulin (HCC) Essential hypertension Expected: 04/09/2024, Expires: 07/09/2024 [facility] Work Phone: Comment on above: Expected: 04/09/2024, Expires: Start: 04-09-2024 End: 07-09-2024 Hemoglobin A1c in Blood HGB A1C Lab Routine Type 2 diabetes mellitus without complication, with no history of insulin use (HCC) Expected: 04/09/2024, Expires: 07/09/2024 [facility] Work Phone: Comment on above: Expected: 04/09/2024, Expires: Start: 04-09-2024 Hemoglobin A1c measurement HbA1C [facility] Start: 04-09-2024 End: 07-09-2024 HIV 1+2 Ab [Presence] in Serum or Plasma by Immunoassay HIV 1 2 COMBO(AG/AB),WITH REFLEX TO DIFFERENTIATION Lab Routine Screening for HIV (human immunodeficiency virus) Expected: 04/09/2024, Expires: 07/09/2024 [facility] Work Phone: Comment on above: Expected: 04/09/2024, Expires: Start: 04-09-2024 End: 07-09-2024 Thyrotropin [Units/volume] in Serum or Plasma TSH BLD Lab Routine Acquired hypothyroidism Expected: 04/09/2024, Expires: 07/09/2024 [facility] Work Phone: Comment on above: Expected: 04/09/2024, Expires: 4 Start: 03-28-2024 End: 03-28-2024 Patient encounter procedure 03/28/2024 10:00 AM EDT Office Visit [facility] Ophthalmology [address] [place], [place] [phone] Antonio Christina, SABINE [address] [facility] [facility] [address] [place], [place] [id number] Routine eye exam Ophthalmology Comment on above: Routine eye exam Start: 03-20-2024 End: 03-20-2024 ambulatory 03/20/2024 8:00 AM EDT [facility] [address] [place], [place] [id number] Merari Camarillo MD [address], [facility] [address] [place], [place] [id number] Overdue 6 month f/u, NI 12/25/22 [facility] Comment on above: Overdue 6 month f/u, NI 12/25/22 Start: 03-08-2024 Hzv zoster vacc recombinant adjuvanted im njx ZOSTER VACCINE, RECOMBINANT (SHINGRIX) Immunization/Injection Routine Encounter for immunization Expected: 03/08/2024 [facility] Work Phone: Comment on above: Expected: 03/08/2024 Start: 03-04-2024 Shingrix Vaccine (2 of 2) Shingrix Vaccine (2 of 2) [facility] Start: 01-06-2024 Mammography MAMMOGRAM [facility] Start: 01-06-2024 Screening for malignant neoplasm of breast Mammogram Screening [facility] Start: 11-20-2023 ANNUAL PCP TEAM CHRONIC DISEASE VISIT ANNUAL PCP TEAM CHRONIC DISEASE VISIT [facility] Start: 11-14-2023 Hepatitis B surface antibody level LDL CHOLESTEROL [facility] Start: 09-05-2023 BP CONTROLLED (<130/80) BP CONTROLLED (<130/80) [facility] Start: 07-12-2023 Glaucoma screening Dilated Retinal Exam [facility] Start: 07-12-2023 Hepatitis C antibody, confirmatory test DILATED RETINAL EXAM [facility] Start: 07-06-2023 Covid-19 Vaccine () Covid-19 Vaccine () [facility] Start: 07-06-2023 Influenza vaccination [facility] Start: 06-28-2023 3 comp foot exam completed DIABETIC FOOT EXAM [facility] Start: 06-28-2023 ANNUAL PCP TEAM CHRONIC DISEASE VISIT ANNUAL PCP TEAM CHRONIC DISEASE VISIT [facility] Start: 06-28-2023 BP CONTROLLED (<130/80) BP CONTROLLED (<130/80) [facility] Start: 06-28-2023 Diabetic foot examination Diabetic Foot Exam [facility] Start: 06-28-2023 Urine microalbumin profile DTAP,TDAP,TD (2 - Td or Tdap) [facility] Comment on above: Postponed from 04/28/2019 (Declined at t his time) Start: 06-26-2023 Hepatitis B screening URINE ALBUMIN:CREATININE RATIO [facility] Start: 05-05-2023 End: 07-05-2023 Basic metabolic 2000 panel - Serum or Plasma BASIC METABOLIC PNL Lab Routine Essential hypertension Expected: 05/05/2023, Expires: 07/05/2023 [facility] Work Phone: Comment on above: Expected: 05/05/2023, Expires: 3 Start: 05-05-2023 End: 07-05-2023 Hemoglobin A1c in Blood HGB A1C Lab Routine Type 2 diabetes mellitus without complication, without long-term current use of insulin (HCC) Expected: 05/05/2023, Expires: 07/05/2023 [facility] Work Phone: Comment on above: Expected: 05/05/2023, Expires: 3 Start: 02-19-2023 End: 04-21-2023 CBC W Auto Differential panel - Blood CBC + DIFF Lab Routine PFO (patent foramen ovale) Expected: 02/19/2023, Expires: 04/21/2023 [facility] Work Phone: Comment on above: Expected: 02/19/2023, Expires: 3 Start: 02-19-2023 End: 04-21-2023 Comprehensive metabolic 2000 panel - Serum or Plasma COMP METABOLIC PANEL Lab Routine PFO (patent foramen ovale) Expected: 02/19/2023, Expires: 04/21/2023 [facility] Work Phone: Comment on above: Expected: 02/19/2023, Expires: 3 Start: 02-19-2023 End: 04-21-2023 Lipid 1996 panel - Serum or Plasma LIPID PANEL BASIC Lab Routine PFO (patent foramen ovale) Expected: 02/19/2023, Expires: 04/21/2023 [facility] Work Phone: Comment on above: Expected: 02/19/2023, Expires: 3 Start: 02-19-2023 End: 04-21-2023 Natriuretic peptide.B prohormone N-Terminal [Mass/volume] in Serum or Plasma NT PRO BNP Lab Routine PFO (patent foramen ovale) Expected: 02/19/2023, Expires: 04/21/2023 [facility] Work Phone: Comment on above: Expected: 02/19/2023, Expires: 3 Start: 02-12-2023 Hemoglobin A1c measurement HbA1C [facility] Start: 02-12-2023 Hemoglobin A1c/Hemoglobin.total in Blood HBA1C [facility] Start: 11-19-2022 End: 01-19-2023 CBC panel - Blood by Automated count CBC Lab Routine PFO (patent foramen ovale) Primary hypertension Hypertension, unspecified type Expected: 11/19/2022, Expires: 01/19/2023 [facility] Work Phone: Comment on above: Expected: 11/19/2022, Expires: 3 Start: 11-19-2022 End: 01-19-2023 Comprehensive metabolic 2000 panel - Serum or Plasma COMP METABOLIC PANEL Lab Routine PFO (patent foramen ovale) Primary hypertension Hypertension, unspecified type Expected: 11/19/2022, Expires: 01/19/2023 [facility] Work Phone: Comment on above: Expected: 11/19/2022, Expires: 3 Start: 11-19-2022 End: 01-19-2023 Natriuretic peptide.B prohormone N-Terminal [Mass/volume] in Serum or Plasma NT PRO BNP Lab Routine PFO (patent foramen ovale) Primary hypertension Hypertension, unspecified type Expected: 11/19/2022, Expires: 01/19/2023 [facility] Work Phone: Comment on above: Expected: 11/19/2022, Expires: 3 Start: 11-04-2022 COVID-19 VACCINE (3 - Booster for Pfizer series) COVID-19 VACCINE (3 - Booster for Pfizer series) [facility] Start: 09-26-2022 Hemoglobin A1c/Hemoglobin.total in Blood HBA1C [facility] Start: 09-02-2022 COVID-19 VACCINE (2 - Pfizer series) COVID-19 VACCINE (2 - Pfizer series) [facility] Start: 09-02-2022 PFIZER SARS-COV-2 VACCINE 2D DOSE APPT PFIZER SARS-COV-2 VACCINE 2D DOSE APPT Procedures Routine Expected: 09/02/2022 [facility] Work Phone: Comment on above: Expected: 09/02/2022 Start: 08-05-2022 PNEUMOCOCCAL (1 - PCV) PNEUMOCOCCAL (1 - PCV) [facility] ic Comment on above: Postponed from 1974 (Declined at t his time) Start: 08-02-2022 End: 12-05-2022 CBC W Auto Differential panel - Blood CBC + DIFF Lab Routine Primary hypertension Expected: 08/02/2022, Expires: 12/05/2022 [facility] Work Phone: Comment on above: Expected: 08/02/2022, Expires: 3 Start: 08-02-2022 End: 12-05-2022 Comprehensive metabolic 2000 panel - Serum or Plasma COMP METABOLIC PANEL Lab Routine Primary hypertension Expected: 08/02/2022, Expires: 12/05/2022 [facility] Work Phone: Comment on above: Expected: 08/02/2022, Expires: 3 Start: 08-02-2022 End: 12-05-2022 Lipid 1996 panel - Serum or Plasma LIPID PANEL BASIC Lab Routine Primary hypertension Expected: 08/02/2022, Expires: 12/05/2022 [facility] Work Phone: Comment on above: Expected: 08/02/2022, Expires: 3 Start: 08-02-2022 End: 12-05-2022 Natriuretic peptide.B prohormone N-Terminal [Mass/volume] in Serum or Plasma NT PRO BNP Lab Routine Primary hypertension Expected: 08/02/2022, Expires: 12/05/2022 [facility] Work Phone: Comment on above: Expected: 08/02/2022, Expires: 3 Start: 07-06-2022 COVID-19 VACCINE (#1) COVID-19 VACCINE (#1) [facility] Comment on above: Postponed from 01/02/1969 (Declined at t his time) Start: 07-06-2022 Influenza vaccination [facility] Start: 06-13-2022 End: 08-13-2022 ALBUMIN/CREAT RATIO RND UR ALBUMIN/CREAT RATIO RND UR Lab Routine Diabetes mellitus (HCC) Expected: 06/13/2022, Expires: 08/13/2022 [facility] Work Phone: Comment on above: Expected: 06/13/2022, Expires: 2 Start: 06-13-2022 End: 08-13-2022 CBC panel - Blood by Automated count CBC Lab Routine Diabetes mellitus (HCC) Expected: 06/13/2022, Expires: 08/13/2022 [facility] Work Phone: Comment on above: Expected: 06/13/2022, Expires: 2 Start: 06-13-2022 End: 08-13-2022 Hemoglobin A1c in Blood HGB A1C Lab Routine Diabetes mellitus (HCC) Expected: 06/13/2022, Expires: 08/13/2022 [facility] Work Phone: Comment on above: Expected: 06/13/2022, Expires: 2 Start: 06-13-2022 End: 08-13-2022 SCHEDULE LAB TESTING SCHEDULE LAB TESTING Lab Routine Expected: 06/13/2022, Expires: 08/13/2022 [facility] Work Phone: Comment on above: Expected: 06/13/2022, Expires: 2 Start: 06-13-2022 End: 08-13-2022 Thyrotropin [Units/volume] in Serum or Plasma TSH BLD Lab Routine Acquired hypothyroidism Expected: 06/13/2022, Expires: 08/13/2022 [facility] Work Phone: Comment on above: Expected: 06/13/2022, Expires: 2 Start: 04-20-2022 ANNUAL PCP TEAM CHRONIC DISEASE VISIT ANNUAL PCP TEAM CHRONIC DISEASE VISIT [facility] Start: 01-06-2022 Hepatitis B surface antibody level LDL CHOLESTEROL [facility] Start: 10-20-2021 Hemoglobin A1c/Hemoglobin.total in Blood HBA1C [facility] Start: 01-17-2020 Hepatitis C antibody, confirmatory test DILATED RETINAL EXAM [facility] Start: 12-18-2019 Hepatitis B screening URINE ALBUMIN:CREATININE RATIO [facility] Start: 12-12-2019 3 comp foot exam completed DIABETIC FOOT EXAM [facility] Start: 04-28-2019 Urine microalbumin profile [facility] Start: 03-19-2019 Mammography MAMMOGRAM [facility] Start: 2018 SHINGRIX VACCINE (1 of 2) SHINGRIX VACCINE (1 of 2) [facility] Start: 2013 COLOGUARD (FIT-DNA) COLOGUARD (FIT-DNA) [facility] Start: 2013 Colonoscopy COLONOSCOPY [facility] Start: 2013 COLORECTAL CANCER SCREENING COLORECTAL CANCER SCREENING [facility] Start: [address] COLONOGRAPHY [facility] Start: 2013 FECAL OCCULT BLOOD FECAL OCCULT BLOOD [facility] Start: 2013 Screening for malignant neoplasm of colon [facility] Start: 2013 SIGMOIDOSCOPY SIGMOIDOSCOPY [facility] Start: 1987 HEPATITIS B (1 of 3 - Risk 3-dose series) HEPATITIS B (1 of 3 - Risk 3-dose series) [facility] Start: 1987 Hepatitis B Vaccine (1 of 3 - 19+ 3-dose series) Hepatitis B Vaccine (1 of 3 - 19+ 3-dose series) [facility] Start: 1986 Anxiety Screening Anxiety Screening [facility] Start: 1986 BP CONTROLLED (<130/80) BP CONTROLLED (<130/80) [facility] Start: 1986 HIV SCREENING HIV SCREENING [facility] Start: 1986 HIV screening HIV Screening [facility] Start: 1986 SPIROMETRY SPIROMETRY [facility] Start: 1984 ONE PNEUMOVAX PRIOR TO AGE 65 ONE PNEUMOVAX PRIOR TO AGE 65 [facility] Start: 1974 PNEUMOCOCCAL (1 - PCV) PNEUMOCOCCAL (1 - PCV) [facility] Start: 1973 COVID-19 VACCINE (#1) COVID-19 VACCINE (#1) [facility] Start: 1973 COVID-19 VACCINE (1) COVID-19 VACCINE (1) [facility] Start: 01-02-1969 COVID-19 VACCINE (#1) COVID-19 VACCINE (#1) [facility] Start: 1968 HEPATITIS B (1 of 3 - 3-dose series) HEPATITIS B (1 of 3 - 3-dose series) [facility] Start: 1968 Hepatitis B Vaccine (1 of 3 - 3-dose series) Hepatitis B Vaccine (1 of 3 - 3-dose series) [facility] COVID & INFLUENZA A/ B & RSV PCR, ROUTINE COVID & INFLUENZA A/B & RSV PCR, ROUTINE Microbiology Routine URI, acute Ordered: 11/11/2024 [facility] Work Phone: Comment on above: Ordered: 11/11/2024 End: 02-26-2024 DBT Breast - bilateral screening [facility] Work Phone: Comment on above: ONCE for 1 Occurrences starting 02/26/20 24 until 02/26/2024 ECG B/O W INTERP (ME D OFFICE) ECG B/O W INTERP (MED OFFICE) ECG Routine Pre-operative cardiovascular examination Ordered: 03/14/2022 [facility] Work Phone: Comment on above: Ordered: 03/14/2022 ECG B/O W INTERP (ME D OFFICE) ECG B/O W INTERP (MED OFFICE) ECG Routine PFO (patent foramen ovale) Ordered: 07/21/2022 [facility] Work Phone: Comment on above: Ordered: 07/21/2022 End: 08-02-2023 ECG COMPLETE ECG COMPLETE ECG Routine Primary hypertension 1 Occurrences starting 08/02/2022 until 08/02/2023 [facility] Work Phone: Comment on above: 1 Occurrences starting 08/02/2022 until 08/02/2023 End: 11-19-2023 ECG COMPLETE ECG COMPLETE ECG Routine PFO (patent foramen ovale) Primary hypertension Hypertension, unspecified type 1 Occurrences starting 11/19/2022 until 11/19/2023 [facility] Work Phone: Comment on above: 1 Occurrences starting 11/19/2022 until 11/19/2023 End: 08-02-2023 Echocardiography [facility] Cardiology Routine Primary hypertension 1 Occurrences starting 08/02/2022 until 08/02/2023 [facility] Work Phone: Comment on above: 1 Occurrences starting 08/02/2022 until 08/02/2023 End: 11-19-2023 Echocardiography [facility] Cardiology Routine PFO (patent foramen ovale) Primary hypertension Hypertension, unspecified type 1 Occurrences starting 11/19/2022 until 11/19/2023 [facility] Work Phone: Comment on above: 1 Occurrences starting 11/19/2022 until 11/19/2023 Hemoglobin.gastroint crispin nal.lower [Presence] in Stool by Immunoassay FECAL OCCULT BLOOD TEST Lab Routine Encounter for screening fecal occult blood testing Ordered: 11/20/2022 [facility] [facility] Work Phone: Comment on above: Ordered: 11/20/2022 Hemoglobin.gastroint crispin nal.lower [Presence] in Stool by Immunoassay FECAL OCCULT BLOOD TEST Lab Routine Encounter for screening fecal occult blood testing Ordered: 01/08/2024 [facility] Work Phone: Comment on above: Ordered: 01/08/2024 Hemoglobin.gastroint crispin nal.lower [Presence] in Stool by Immunoassay IMMUNOCHEMICAL FECAL OCCULT BLOOD TEST Lab Routine Encounter for screening fecal occult blood testing Ordered: 01/05/2025 [facility] Comment on above: Ordered: 01/05/2025 HIV 1+2 Ab [Presence ] in Serum or Plasma by Immunoassay HIV 1 2 COMBO(AG/AB),WITH REFLEX TO DIFFERENTIATION Lab Routine Screening for HIV (human immunodeficiency virus) Ordered: 11/20/2022 [facility] Work Phone: Comment on above: Ordered: 11/20/2022 End: 06-02-2023 THAD SCREENING [facility] SCREENING [facility] Radiology Routine Encounter for screening mammogram for breast cancer 1 Occurrences starting 05/03/2022 until 06/02/2023 [facility] Work Phone: Comment on above: 1 Occurrences starting 05/03/2022 until 06/02/2023 End: 02-06-2025 MG Breast Screening THAD SCREENING Radiology Routine Encounter for screening mammogram for breast cancer 1 Occurrences starting 01/08/2024 until 02/06/2025 [facility] Work Phone: Comment on above: 1 Occurrences starting 01/08/2024 until 02/06/2025 Patient Education ED Influenza (Adult) [facility] Work Phone: Patient referral [facility] Work Phone: PT PLAN OF CARE CERTIFICATION PT PLAN OF CARE CERTIFICATION Procedures Routine Leg length discrepancy Ordered: 03/06/2023 [facility] Work Phone: Comment on above: Ordered: 03/06/2023 Removal subcutaneous cardiac rhythm monitor REMOVAL SUBCUTANEOUS CARDIAC RHYTHM MONITOR History of loop recorder [place] [facility] LAB SARS-CoV-2 & FLU Ant igen (Rapid) SARS-CoV-2 & FLU Antigen (Rapid) [facility] Work Phone: End: 02-28-2024 XR HIP GENERAL 3V PELV/AP/LAT RIGHT XR HIP GENERAL 3V PELV/AP/LAT RIGHT Radiology Routine Pain in right hip 1 Occurrences starting 01/29/2023 until 02/28/2024 [facility] Work Phone: Comment on above: 1 Occurrences starting 01/29/2023 until 02/28/2024 XR HIP GENERAL 3V PELV/AP/LAT RIGHT XR HIP GENERAL 3V PELV/AP/LAT RIGHT Radiology Routine Pain in right hip 01/29/2023 2:20 PM EDT [facility] Work Phone: [facility] Immunizations Immunization Date Immunization Notes Care Provider Fa [facility] 01-08-2024 influenza, injectabl e, quadrivalent, contains preservative Isabel Davenport MD Work Phone: [facility] 01-08-2024 zoster vaccine recombinant Isabel Davenport MD Work Phone: [facility] 01-08-2024 influenza virus vaccine, unspecified formulation Isabel Davenport MD Work Phone: [facility] 11-20-2022 pneumococcal (PCV20) vaccine, 20 valent (PREVNAR 20) Isabel Davenport MD Work Phone: [facility] 11-20-2022 pneumococcal Conjugate, unspecified formulation Isabel Davenport MD Work Phone: [facility] Work Phone: 09-09-2022 COVID-19 original vaccine, age 12+ yr, monovalent (PFIZER-BIONTECH - NAIR TOP) [facility] Work Phone: 08-12-2022 COVID-19 original vaccine, age 12+ yr, monovalent (PFIZER-BIONTECH - NAIR TOP) [facility] 12-12-2018 influenza virus vaccine, unspecified formulation Isabel Davenport MD Work Phone: [facility] 09-05-2012 influenza virus vaccine, unspecified formulation Danette Lopez RETAIL BUSINESS ANALYST.APPLICATION INFRASTRUCTURE ENGINEER Work Phone: [facility] 04-28-2009 tetanus toxoid, reduced diphtheria toxoid, and acellular pertussis vaccine, adsorbed Danette Lopez RETAIL BUSINESS ANALYST.APPLICATION INFRASTRUCTURE ENGINEER Work Phone: [facility] Payers Date Payer Category Payer Self-pay [id number] 2023 [employer] Blue [employer] BLUE CARD PPO OOS [id number] 2022 Unknown 2020 Medicaid [place] [employer] [id number] 2020-Present [phone] [address] [place] [address] Medicaid [id number] 2020 Medicaid [id number] 2020 Medicaid [id number] 2007 Private Health Insurance [employer]ET[employer] [id number] 2007 Unknown [id number] 2007 Unknown [id number] 1968 Unknown [id number] 1968 Unknown [id number] 1968 Unknown [id number] 1968 Unknown [id number] 1968 Unknown [id number] Unknown [facility] [id number] Unknown SELF INS [facility]USH [id number] Unknown [id number] Unknown [id number] Unknown [id number] Unknown [id number] Social History Date Type Detail Facility Start: 06-14-2022 End: 05-21-2023 Tobacco smoking status NHIS Never smoked tobacco [facility] Start: 02-18-2022 End: 07-16-2025 Alcohol intake Current drinker of alcohol (finding) [facility] Start: 05-12-2020 End: 11-20-2022 History SDOH Alcohol Frequency 2 [facility] Start: 05-12-2020 End: 11-20-2022 History SDOH Alcohol Std Drinks 1 [facility] Start: 02-02-2020 End: 07-05-2020 History SDOH Social Connections Phone 3 [facility] Start: 02-02-2020 End: 11-20-2022 History SDOH Social Connections Living 7 [facility] Start: 02-02-2020 History SDOH Stress 4 [facility] Start: 07-05-2020 Education 21 [facility] Start: 1970 Sex Assigned At Female C [facility] Start: 02-08-2022 End: 07-21-2022 Exposure to SARS-CoV-2 (event) Not sure [facility] Start: 06-14-2022 Tobacco use and exposure Smokeless tobacco non-user [facility] Start: 10-22-2022 Tobacco smoking stat us NHIS Unknown if ever smoked [facility] Work Phone: Start: 11-20-2022 History SDOH Social Connections Get Together 98 [facility] Start: 03-27-2023 End: 12-30-2023 History of Social function [facility] Start: 03-27-2023 End: 12-30-2023 [facility] Leap[employer] Has the [employer], [employer], or [employer] threatened to shut off services in your home in past 12Mo Yes [facility] Start: 10-06-2012 How often do you get together with friends or relatives? Patient refused [facility] Are you now , , , , never or living with a partner? Never [facility] How often to you hav e a drink containing alcohol? Monthly or less [facility] How many standard drinks containing alcohol do you have on a typical day? 1 or 2 [facility] How often do you hav e 6 or more drinks on 1 occasion? Never [facility] How hard is it for y ou to pay for the very basics like food, housing, medical care, and heating Hard [facility] Do you feel stress - tense, restless, nervous, or anxious, or unable to sleep at night because your mind is troubled all the time - these days [OSQ] Not at all [facility] (I/We) worried jeremy er (my/our) food would run out before (I/we) got money to buy more. Never true [facility] In the past 12 month s, was there a time when you were not able to pay the mortgage or rent on time? No [facility] Start: 02-01-2020 Gender identity Identifies as female gender (finding) [facility] Start: 02-01-2020 Sexual orientation Heterosexual (kristine farnsworth) [facility] How hard is it for y ou to pay for the very basics like food, housing, medical care, and heating Somewhat hard [facility] Do you feel stress - tense, restless, nervous, or anxious, or unable to sleep at night because your mind is troubled all the time - these days [OSQ] To some extent [facility] Medical Equipment Procedure Code Equipment Code Equipment Origin al Text Equipment Identifier Dates Test blood sugar (s) 2 times daily. Dx: Type 2 DM - Uncontrolled E11.65 Insulin: No [id number], [id number] Start: 11-13-2022 Comment on above: Test blood sugar(s) 2 times daily. Dx: Type 2 DM - Uncontrolled E11.65 Insulin: No Goals Date Patient Goal Desired Activity /State Personal health goal Functional Status Date Assessment Result Facility 12-11-2022 Are you deaf, or do you have serious difficulty hearing No 12/11/2022 5:04 PM Elisabeth Avina, KELLEN No [facility] 12-11-2022 Are you blind, or do you have serious difficulty seeing, even when wearing glasses No 12/11/2022 5:04 PM Elisabeth Avina, KELLEN No [facility] 12-11-2022 Do you have serious difficulty walking or climbing stairs No 12/11/2022 5:04 PM Elisabeth Avina, KELLNE No [facility] 12-11-2022 Do you have difficul ty dressing or bathing No 12/11/2022 5:04 PM Elisabeth Avina, RN No [facility] 12-11-2022 Because of a physica l, mental, or emotional condition, do you have difficulty doing errands alone such as visiting a physician's office or shopping No 12/11/2022 5:04 PM Elisabeth Avina, KELLEN No [facility] Mental Status Date Assessment Result Facility 12-11-2022 Because of a physica l, mental, or emotional condition, do you have serious difficulty concentrating, remembering, or making decisions No 12/11/2022 5:04 PM Elisabeth Avina, KELLEN No [facility] 10-22-2022 Cognitive function Level Of Cons ciousness Awake;Alert;Appropriate;Fol lows Commands [facility] Work Phone: Clinical Notes 01-16-2019 to 08-03-2025 Verna Crowley, (Herbie) - 07/16/2025 8:30 AM EDTPatient InstructionsRivera Gandhi APRN.APPLICATION INFRASTRUCTURE ENGINEER - 07/16/2025 8:17 AM EDTTelephone Encounter - Norma Nieto - 06/16/2025 3:45 PM EDTPatient Instructions Note Date & Type Note Facility 08-03-2025 Note HNO ID: [id number] Author: NANCY UP, ? Service: ? Author Type: Physician Type: Progress Notes Filed: 08/03/2025 22:45 Note Text: Subjective The patient is a 55-year-old female presenting with a lump on the left foot and a skin lesion on the right foot. The patient reports a lump on the left foot, first noticed in August. She has been preoccupied with personal matters, including the recent deaths of her mother and grandmother, which has delayed seeking medical attention. 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 The pain is alleviated by removing her shoe and massaging the area. She has also tried stretching exercises. She has a history of plantar fasciitis and has undergone plantar fascial surgery on both feet. She also had a similar lump on the right foot, which was removed during surgery but later recurred. Additionally, the patient reports a small, pen-sized lesion on the right foot that has been present for a couple of years and is gradually spreading. She is currently seeing a supervisor tower but has not yet discussed this lesion with them. Musculoskeletal: (+) left foot lump, (+) left foot pain with ambulation Skin: (+) enlarging right heel pigmented lesion Objective There were no vitals taken for this visit. - Cardiovascular: Dorsalis pedis and posterior tibial pulses palpable bilaterally; capillary refill time <5 seconds; skin temperature warm proximally and distally. - Skin: No open sores on bilateral feet; feet well-hydrated with normal color and temperature; web spaces clean and dry; 2 mm symmetrical lesion on right medial heel, likely a nevus; surgical scars on central tubercle of bilateral heels consistent with prior plantar fasciotomy. - Musculoskeletal: - Left Foot: Palpable soft tissue mass on plantar medial instep measuring approximately 1.5 x 1.2 cm, slight tenderness on palpation; no pain on heel palpation. Assessment AND Plan # Plantar fascial fibromatosis (M72.2) Chronic plantar fascial fibromatosis with a palpable soft tissue mass on the plantar medial instep of the left foot, measuring approximately 1.5 x 1.2 cm, with slight tenderness on palpation. - Provided education on the benign nature of the condition and discussed treatment options, including gel inserts, topical cream, steroid injection, radiation, and surgical excision. - Discussed risks and benefits of each treatment option, including potential recurrence with surgery and the sensitive nature of the area for steroid injections. - Start topical cream to attempt reduction in size of the mass. - Provided gel insert for cushioning. - Follow-up in 6 weeks to 2 months to reassess. # Nevus (D22.9) Small, symmetrical, 2 mm lesion on the right medial heel, most likely representing a benign nevus. - Educated patient on the ABCD criteria for monitoring nevi (asymmetry, border, color, diameter). - Advised patient to monitor for any changes in size, color, or shape, and to discuss the lesion with their supervisor tower. - Discussed the option of a punch biopsy if desired. Recording using [employer] software for draft documentation of the visit was discussed with the patient/authorized contact center representative; all questions welcomed and answered. Patient/authorized contact center representative agreed to proceed Nancy Up DPM [facility] 08-03-2025 Note HNO ID: [id number] Author: MARLEN JOHNSON RN Service: ? Author Type: Registered Nurse Type: Progress Notes Filed: 08/03/2025 22:45 Note Text: Per Dr. Up, Martha was provided with Powerstep Comfortlast Inserts, size 9-10.5, and instructed/educated in its application, wear, and care. All questions were answered, and patient was able to demonstrate competence with the necessary skills to utilize the above equipment. Marlen Johnson RN [facility] 08-03-2025 Note HNO ID: [id number] Author: SONAL QUINTEROS LPN Service: ? Author Type: Licensed Nurse Type: Progress Notes Filed: 08/03/2025 22:45 Note Text: Patient presents with: Left Foot - New, Pain Right Foot - New, Discolored spot on heel AMB ROOMING INTAKE FLOWSHEET DATA Pain Pain Level: 0 Pain Location: Foot-Left Description: Aching, Pressure Duration Amount of Time: 6 Duration Units: Weeks Frequency: Intermittent Intervention/Comfort measure: Positioning Sonal Quinteros LPN [facility] 08-03-2025 Note HNO ID: [id number] Author: ELISABETH ARELLANO RT(R) Service: ? Author Type: Technologist Type: Progress Notes Filed: 08/03/2025 12:00 Note Text: Radiology Service Progress Note PATIENT NAME: Martha Venegas DATE OF SERVICE: August 03, 2025 TIME: 12:00 PM PATIENT IDENTITY VERIFICATION COMPLETED USING TWO [...] PATIENT PRESENTS WITH AN IMPLANTABLE OR ATTACHED METAL GAUGE MAKER: No RADIOLOGY DEPARTMENT: General X-ray: Exam(s) Completed: Lower Extremity X-Ray(s): Foot, Left and Wt. Bearing PERIPHERAL IV DATA: Not applicable SIGNED BY: RT Jarret(R) August 03, 2025 12:00 PM [facility] 07-16-2025 History of Present illness Narrative Radiology Service Progress Note PATIENT NAME: Martha Venegas DATE OF SERVICE: July 16, 2025 TIME: 8:33 AM PATIENT IDENTITY VERIFICATION COMPLETED USING TWO [...] status: NO. PATIENT RELEVANT IMPLANT DATA REVIEWED: Yes PATIENT PRESENTS WITH AN IMPLANTABLE OR ATTACHED METAL GAUGE MAKER: No RADIOLOGY DEPARTMENT: General X-ray: Exam(s) Completed: Rib X-Ray: Right PERIPHERAL IV DATA: Not applicable SIGNED BY: RT Lucy(Herbie) July 16, 2025 8:33 AM documented in this encounter [facility] 07-16-2025 Note HNO ID: [id number] Author: VERNA CROWLEY RT(R) Service: ? Author Type: Physical Therapist Aide Type: Progress Notes Filed: 07/16/2025 08:47 Note Text: Radiology Service Progress Note PATIENT NAME: Martha Venegas DATE OF SERVICE: July 16, 2025 TIME: 8:33 AM PATIENT IDENTITY VERIFICATION COMPLETED USING TWO [...] status: NO. PATIENT RELEVANT IMPLANT DATA REVIEWED: Yes PATIENT PRESENTS WITH AN IMPLANTABLE OR ATTACHED METAL GAUGE MAKER: No RADIOLOGY DEPARTMENT: General X-ray: Exam(s) Completed: Rib X-Ray: Right PERIPHERAL IV DATA: Not applicable SIGNED BY: RT Lucy(R) July 16, 2025 8:33 AM [facility] 07-16-2025 Instructions Rivera Gandhi APRN.[facility] - 07/16/2025 8:25 AM EDT ASSESSMENT/PLAN: 1. Right-sided chest pain - ICD9: 786.50, ICD10: R07.9 Atypical chest pain, symptoms are not consistent with cardiac ischemia due to pleuritic nature of pain and localization of the pain possible etiology include Costochondritis/chest wall pain and musculoskeletal - Oxygen saturation 99% - XR RIBS/CHEST 3V AP RIB/OBLS/CXR RIGHT- will notify if any results positive for further care recommendations -Rest and elevate the affected painful area. Apply cold compresses intermittently. . As pain recedes, begin normal activities slowly as tolerated. - TIZANIDINE 4 MG TABLET Rivera Gandhi, DALIA.APPLICATION INFRASTRUCTURE ENGINEER -I have reviewed and updated with the patient: allergies, VS, current medications, Past Medical History,Past Surgical History,Past Family Medical History, Past Social History. - Patient education provided today - Discussed with patient medications that are indicated and how to use the medications and what the potential side effects are. - Warning signs of worsening condition explained to patient -Instructed to follow up with PCP if symptoms not improving in next 2-3 days - Patient left in stable condition after questions answered and patient verbalizes understanding - Instructed to go to Emergency Department right away with any severe worsening chest pain, shortness of breath, headache, dizziness, weakness, numbness,leg swelling , tingling, problems walking or speaking or any other concerning symptoms Patient education: Costochondritis (The Basics) What is costochondritis? -- Costochondritis is a condition that causes pain and tenderness in your chest. The pain happens in an area called the costosternal joints, where the ribs meet the breastbone. The pain from costochondritis affects only a small area and does not get worse when you move around. What causes costochondritis? -- Most of the time, doctors don't know why people get costochondritis. But in some people, it seems to be caused by: ?A blow to the chest ?Heavy lifting or hard exercise ?An illness that causes you to cough and sneeze What are the symptoms of costochondritis? -- The symptoms include: ?Pain and tenderness in the chest - The pain can be sharp, or it might be dull and gnawing ?Pain when you take a deep breath ?Pain when you cough ?Trouble breathing Is there a test for costochondritis? -- No. There is no test. But your doctor or nurse should be able to tell if you have it by learning about your symptoms and doing an exam. Sometimes, he or she might do other tests to make sure you do not have a different problem. Is there anything I can do on my own to feel better? -- Yes. Some people feel better if they: ?Do stretching exercises ?Put a heating pad on the painful area a few times a day. How is costochondritis treated? -- Often, costochondritis goes away without treatment. Kjqx-sdq-avqwqrb medicines to ease pain include: ?Pain-relieving creams that have capsaicin or salicylates in them ?Pain-relieving pills such as acetaminophen (sample brand name: Tylenol) or ibuprofen (sample brand name: Advil) Your doctor might prescribe medicines that ease pain, including: ?1% diclofenac gel (sample brand name Voltaren) ?Cyclobenzaprine (sample brand name Flexeril) ?Amitriptyline (sample brand name Elavil) This topic retrieved from [employer] documented in this encounter [facility] 07-16-2025 Note HNO ID: [id number] Author: RIVERA GANDHI APRN.SRAVANTHI Service: ? Author Type: Nurse Practitioner Type: Progress Notes Filed: 07/16/2025 08:39 Note Text: [facility] Ale[facility]andro Martha Venegas is a 55 year old female c/o right sided chest and rib pain after falling down stairs on accident at nite in dark a week ago, lingering pain with pulling and pushing, certain movements, taking tylenol with no relief, denies bruising or swelling, no shortness of breath or difficulty breathing Patient presents with: Fall: Fell down stairs last week and was starting to feel better and then has had increased pain since trying to return to normal daily living pain on R side ant and post The history is provided by the patient. Chest Pain This is a new problem. The current episode started more than 2 days ago. The problem occurs constantly. The problem has not changed since onset.The pain is associated with raising an arm, movement and lifting. The pain is present in the lateral region. The pain is moderate. The quality of the pain is described as brief and sharp. The pain does not radiate. Pertinent negatives include no cough, no fever and no shortness of breath. Review of Systems Constitutional: Negative for chills, fatigue and fever. HENT: Negative. Respiratory: Negative for cough, chest tightness, shortness of breath and wheezing. Cardiovascular: Positive for chest pain. Musculoskeletal: Positive for arthralgias. Negative for joint swelling. Skin: Negative. Objective BP 186/97 Pulse 67 Temp 36.1 ?C (97 ?F) Resp 18 Wt 93 kg (205 lb 0.4 oz) SpO2 100% BMI 35.18 kg/m? Physical Exam Vitals and nursing note reviewed. Constitutional: Appearance: Normal appearance. Cardiovascular: Rate and Rhythm: Regular rhythm. Heart sounds: Normal heart sounds. Pulmonary: Effort: Pulmonary effort is normal. Breath sounds: Normal breath sounds. Abdominal: General: Abdomen is flat. Bowel sounds are normal. Palpations: Abdomen is soft. Musculoskeletal: Arms: Comments: No rashes, bruising or swelling evident Skin: General: Skin is dry. Neurological: General: No focal deficit present. Mental Status: She is alert. {ASSESSMENT/PLAN: 1. Right-sided chest pain - ICD9: 786.50, ICD10: R07.9 Atypical chest pain, symptoms are not consistent with cardiac ischemia due to pleuritic nature of pain and localization of the pain possible etiology include Costochondritis/chest wall pain and musculoskeletal - Oxygen saturation 99% - XR RIBS/CHEST 3V AP RIB/OBLS/CXR RIGHT- will notify if any results positive for further care recommendations -Rest and elevate the affected painful area. Apply cold compresses intermittently. . As pain recedes, begin normal activities slowly as tolerated. - TIZANIDINE 4 MG TABLET - blood pressure 186-97, has not taking blood pressure medications yet this morning, instructed to take LETHA, and follow up with PCP for further evaluation/recheck Rivera Gandhi APRN.APPLICATION INFRASTRUCTURE ENGINEER -I have reviewed and updated with the patient: allergies, VS, current medications, Past Medical History,Past Surgical History,Past Family Medical History, Past Social History. - Patient education provided today - Discussed with patient medications that are indicated and how to use the medications and what the potential side effects are. - Warning signs of worsening condition explained to patient -Instructed to follow up with PCP if symptoms not improving in next 2-3 days - Patient left in stable condition after questions answered and patient verbalizes understanding - Instructed to go to Emergency Department right away with any severe worsening chest pain, shortness of breath, headache, dizziness, weakness, numbness,leg swelling , tingling, problems walking or speaking or any other concerning symptoms History and Record Review External record(s) reviewed: prior outpatient record. Differential Diagnoses - costocondritis is more likely for the following reason(s): suggested by HANDP - acute mi is less likely for the following reason(s): HANDP not suggestive Disposition The patient was discharged. OTC Medications were advised: Procedures [facility] 07-16-2025 History of Present illness Narrative [facility] Alejandro Martha Venegas is a 55 year old female c/o right sided chest and rib pain after falling down stairs on accident at nite in dark a week ago, lingering pain with pulling and pushing, certain movements, taking tylenol with no relief, denies bruising or swelling, no shortness of breath or difficulty breathing Patient presents with: Fall: Fell down stairs last week and was starting to feel better and then has had increased pain since trying to return to normal daily living pain on R side ant and post The history is provided by the patient. Chest Pain This is a new problem. The current episode started more than 2 days ago. The problem occurs constantly. The problem has not changed since onset.The pain is associated with raising an arm, movement and lifting. The pain is present in the lateral region. The pain is moderate. The quality of the pain is described as brief and sharp. The pain does not radiate. Pertinent negatives include no cough, no fever and no shortness of breath. Review of Systems Constitutional: Negative for chills, fatigue and fever. HENT: Negative. Respiratory: Negative for cough, chest tightness, shortness of breath and wheezing. Cardiovascular: Positive for chest pain. Musculoskeletal: Positive for arthralgias. Negative for joint swelling. Skin: Negative. Objective BP 186/97 Pulse 67 Temp 36.1 C (97 F) Resp 18 Wt 93 kg (205 lb 0.4 oz) SpO2 100% BMI 35.18 kg/m Physical Exam Vitals and nursing note reviewed. Constitutional: Appearance: Normal appearance. Cardiovascular: Rate and Rhythm: Regular rhythm. Heart sounds: Normal heart sounds. Pulmonary: Effort: Pulmonary effort is normal. Breath sounds: Normal breath sounds. Abdominal: General: Abdomen is flat. Bowel sounds are normal. Palpations: Abdomen is soft. Musculoskeletal: Arms: Comments: No rashes, bruising or swelling evident Skin: General: Skin is dry. Neurological: General: No focal deficit present. Mental Status: She is alert. {ASSESSMENT/PLAN: 1. Right-sided chest pain - ICD9: 786.50, ICD10: R07.9 Atypical chest pain, symptoms are not consistent with cardiac ischemia due to pleuritic nature of pain and localization of the pain possible etiology include Costochondritis/chest wall pain and musculoskeletal - Oxygen saturation 99% - XR RIBS/CHEST 3V AP RIB/OBLS/CXR RIGHT- will notify if any results positive for further care recommendations -Rest and elevate the affected painful area. Apply cold compresses intermittently. . As pain recedes, begin normal activities slowly as tolerated. - TIZANIDINE 4 MG TABLET - blood pressure 186-97, has not taking blood pressure medications yet this morning, instructed to take LETHA, and follow up with PCP for further evaluation/recheck Rivera Gandhi APRN.APPLICATION INFRASTRUCTURE ENGINEER -I have reviewed and updated with the patient: allergies, VS, current medications, Past Medical History,Past Surgical History,Past Family Medical History, Past Social History. - Patient education provided today - Discussed with patient medications that are indicated and how to use the medications and what the potential side effects are. - Warning signs of worsening condition explained to patient -Instructed to follow up with PCP if symptoms not improving in next 2-3 days - Patient left in stable condition after questions answered and patient verbalizes understanding - Instructed to go to Emergency Department right away with any severe worsening chest pain, shortness of breath, headache, dizziness, weakness, numbness,leg swelling , tingling, problems walking or speaking or any other concerning symptoms History and Record Review External record(s) reviewed: prior outpatient record. Differential Diagnoses - costocondritis is more likely for the following reason(s): suggested by H&P - acute mi is less likely for the following reason(s): H&P not suggestive Disposition The patient was discharged. OTC Medications were advised: Procedures documented in this encounter [facility] 06-16-2025 Telephone encounter Note Patient is scheduled for Loop Recorder Removal on 07/[address] Alcala. The hospital will call the day before between 2-5pm with your arrival time. You should not eat or drink after midnight the night before the procedure. It is a same day procedure but you will need a bus van driver when released from the hospital. You should continue to take medications as prescribed the morning of the procedure with just a sip of water. Please hold Januvia for 2 days prior. Left message for Martha Venegas to call back and confirm date & instructions Norma Nieto Office use: [facility] 06-16-2025 Miscellaneous Notes Patient is scheduled for Loop Recorder Removal on 07/[address] Alcala. The hospital will call the day before between 2-5pm with your arrival time. You should not eat or drink after midnight the night before the procedure. It is a same day procedure but you will need a bus van driver when released from the hospital. You should continue to take medications as prescribed the morning of the procedure with just a sip of water. Please hold Januvia for 2 days prior. Left message for Martha Venegas to call back and confirm date & instructions Norma Nieto Office use: documented in this encounter [facility] 06-05-2025 Telephone encounter Note Prescription Refill Information The patient has been identified by name and date of : Yes Caregiver verified no other encounters exist for this prescription request: Yes Caregiver confirmed with patient/requestor that no other refills are due, in the near future, with this provider at this time: Yes The last office visit in the department: 04/27/25 Does the patient have a future office visit with this provider/department: No Requested Prescriptions Pending Prescriptions Disp Refills hydroCHLOROthiazide 25 mg tablet [Pharmacy Med Name: hydroCHLOROthiazide Oral Tablet 25 MG] 30 tablet 0 Sig: TAKE 1 TABLET BY MOUTH DAILY Malina Ram LPN June 05, 2025 9:33 AM [facility] 06-05-2025 Miscellaneous Notes Prescription Refill Information The patient has been identified by name and date of : Yes Caregiver verified no other encounters exist for this prescription request: Yes Caregiver confirmed with patient/requestor that no other refills are due, in the near future, with this provider at this time: Yes The last office visit in the department: 04/27/25 Does the patient have a future office visit with this provider/department: No Requested Prescriptions Pending Prescriptions Disp Refills hydroCHLOROthiazide 25 mg tablet [Pharmacy Med Name: hydroCHLOROthiazide Oral Tablet 25 MG] 30 tablet 0 Sig: TAKE 1 TABLET BY MOUTH DAILY Malina Ram LPN June 05, 2025 9:33 AM documented in this encounter [facility] 06-01-2025 Note HNO ID: [id number] Author: VIDHYA RICH PA-C Service: ? Author Type: Physician Case Manager Specialist Type: Progress Notes Filed: 06/01/2025 14:19 Note Text: NEW PATIENT NI in Dermatology: Visit date not found Chief Complaint: Derm Problem History of Present Ilness: Martha Venegas is a 54 year old female who presents today for a focused skin examination. 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 Believes it could be from a potential enzyme that is used in the foods. 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 Pertinent History: History of skin cancer: No History of atypical nevi: No History of immunosuppression/organ transplant: No , planning , or ? No Pertinent Family medical history: History of melanoma: No History of non melanoma skin cancer: No Past Medical History is reviewed. Medication List is reviewed. ROS: Skin as above. Physical Exam: The patient is a pleasant female in no apparent distress. Alert and oriented x 3. A skin exam performed of the lips is significant for: Left Lower Vermilion Lip, Left Upper Vermilion Lip, Mid Lower Vermilion Lip, Mid Upper Vermilion Lip, Right Lower Vermilion Lip, Right Upper Vermilion Lip Resolved on exam today. Pictures shown from patients phone showed hyperpigmented and erythematous papules on upper and lower lips. Assessment and Plan: CRACKED LIPS Related Procedures CONSULT TO DERMATOLOGY OTHER ALLERGIC CONTACT DERMATITIS Left Lower Vermilion Lip, Left Upper Vermilion Lip, Mid Lower Vermilion Lip, Mid Upper Vermilion Lip, Right Lower Vermilion Lip, Right Upper Vermilion Lip Discussed treatment options. 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 Continue Heather as needed for flares. OTC hydrocortisone cream twice daily as needed for flares. Recommend Patch testing to find out potential cause of dermatitis. Patch Testing Consult - Left Lower Vermilion Lip, Left Upper Vermilion Lip, Mid Lower Vermilion Lip, Mid Upper Vermilion Lip, Right Lower Vermilion Lip, Right Upper Vermilion Lip Follow up: patch testing consult Intake completed by Danette Koo LPN I agree with the Chief Complaint, ROS, and Past Histories independently gathered by the clinical network and threat support specialist and the remaining scribed note accurately describes my personal service to the patient. Vidhya Rich PA-C [facility] 06-01-2025 History of Present illness Narrative NEW PATIENT NI in Dermatology: Visit date not found Chief Complaint: Derm Problem History of Present Ilness: Martha Venegas is a 54 year old female who presents today for a focused skin examination. 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 Believes it could be from a potential enzyme that is used in the foods. 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 Pertinent History: History of skin cancer: No History of atypical nevi: No History of immunosuppression/organ transplant: No , planning , or ? No Pertinent Family medical history: History of melanoma: No History of non melanoma skin cancer: No Past Medical History is reviewed. Medication List is reviewed. ROS: Skin as above. Physical Exam: The patient is a pleasant female in no apparent distress. Alert and oriented x 3. A skin exam performed of the lips is significant for: Left Lower Vermilion Lip, Left Upper Vermilion Lip, Mid Lower Vermilion Lip, Mid Upper Vermilion Lip, Right Lower Vermilion Lip, Right Upper Vermilion Lip Resolved on exam today. Pictures shown from patients phone showed hyperpigmented and erythematous papules on upper and lower lips. Assessment and Plan: CRACKED LIPS Related Procedures CONSULT TO DERMATOLOGY OTHER ALLERGIC CONTACT DERMATITIS Left Lower Vermilion Lip, Left Upper Vermilion Lip, Mid Lower Vermilion Lip, Mid Upper Vermilion Lip, Right Lower Vermilion Lip, Right Upper Vermilion Lip Discussed treatment options. 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 Continue Heather as needed for flares. OTC hydrocortisone cream twice daily as needed for flares. Recommend Patch testing to find out potential cause of dermatitis. Patch Testing Consult - Left Lower Vermilion Lip, Left Upper Vermilion Lip, Mid Lower Vermilion Lip, Mid Upper Vermilion Lip, Right Lower Vermilion Lip, Right Upper Vermilion Lip Follow up: patch testing consult Intake completed by Danette Koo LPN I agree with the Chief Complaint, ROS, and Past Histories independently gathered by the clinical network and threat support specialist and the remaining scribed note accurately describes my personal service to the patient. Vidhya Hilario, PA-C documented in this encounter [facility] 05-25-2025 Note Date of Procedure 05/25/2025. OCT Macula Interpretation Right Eye Normal without fluid. Left Eye Normal without fluid. Interval Change Right Eye Initial. Left Eye Initial. [facility] 05-25-2025 Note HNO ID: [id number] Author: ANTONIO CHRISTINA OD Service: ? Author Type: PARATRANSIT DRIVER Type: Progress Notes Filed: 05/25/2025 09:09 Note Text: Encounter Diagnosis ICD-10-CM 1. Type 2 diabetes mellitus without retinopathy (HCC) E11.9 2. Homonymous hemianopsia, left H53.462 Educated pt No signs of ret Continue strict glucose control Stable left homony miya Lost one of the pelli prisms Wants to see dr. Muniz again to get permanent ones Follow up yearly Antonio Christina OD May 25, 2025 9:07 AM [facility] 05-25-2025 History of Present illness Narrative Encounter Diagnosis ICD-10-CM 1. Type 2 diabetes mellitus without retinopathy (HCC) E11.9 2. Homonymous hemianopsia, left H53.462 Educated pt No signs of ret Continue strict glucose control Stable left homony miya Lost one of the pelli prisms Wants to see dr. Muniz again to get permanent ones Follow up yearly Antonio Christina OD May 25, 2025 9:07 AM documented in this encounter [facility] 05-11-2025 Telephone encounter Note Prescription Refill Information The patient has been identified by name and date of : Yes Caregiver verified no other encounters exist for this prescription request: Yes Caregiver confirmed with patient/requestor that no other refills are due, in the near future, with this provider at this time: Yes The last office visit in the department: 04/27/2025 Does the patient have a future office visit with this provider/department: No Pharmacy closed Requested Prescriptions Pending Prescriptions Disp Refills SITagliptin phosphate (JANUVIA) 100 mg tablet 90 tablet 1 Sig: Take 1 tablet by mouth once daily. atorvastatin (LIPITOR) 40 mg tablet 90 tablet 1 Sig: Take 1 tablet by mouth once daily. amLODIPine (NORVASC) 10 mg tablet 90 tablet 3 Sig: Take 1 tablet by mouth once daily. clopidogrel (PLAVIX) 75 mg tablet 360 tablet 3 Sig: Take 1 tablet by mouth once daily. fexofenadine (HEATHER) 180 mg tablet 120 tablet 2 Sig: Take 1 tablet by mouth once daily as needed. fluticasone (FLONASE) 50 mcg/actuation nasal spray Sig: Use 2 sprays in each nostril once daily. levothyroxine (LEVOXYL) 50 mcg tablet 90 tablet 3 Sig: Take 1 tablet by mouth once daily. Take on empty stomach. For Thyroid losartan (COZAAR) 100 mg tablet 360 tablet 3 Sig: Take 1 tablet by mouth once daily. metFORMIN (GLUCOPHAGE) 500 mg tablet 360 tablet 3 Sig: Take 2 tablets by mouth two times a day with meals. metoprolol succinate ER (TOPROL XL) 25 mg 24 hr tablet 90 tablet 3 Sig: Take 1 tablet by mouth once daily. Lorene Jasso LPN May 11, 2025 8:42 AM [facility] 05-11-2025 Miscellaneous Notes Prescription Refill Information The patient has been identified by name and date of : Yes Caregiver verified no other encounters exist for this prescription request: Yes Caregiver confirmed with patient/requestor that no other refills are due, in the near future, with this provider at this time: Yes The last office visit in the department: 04/27/2025 Does the patient have a future office visit with this provider/department: No Pharmacy closed Requested Prescriptions Pending Prescriptions Disp Refills SITagliptin phosphate (JANUVIA) 100 mg tablet 90 tablet 1 Sig: Take 1 tablet by mouth once daily. atorvastatin (LIPITOR) 40 mg tablet 90 tablet 1 Sig: Take 1 tablet by mouth once daily. amLODIPine (NORVASC) 10 mg tablet 90 tablet 3 Sig: Take 1 tablet by mouth once daily. clopidogrel (PLAVIX) 75 mg tablet 360 tablet 3 Sig: Take 1 tablet by mouth once daily. fexofenadine (HEATHER) 180 mg tablet 120 tablet 2 Sig: Take 1 tablet by mouth once daily as needed. fluticasone (FLONASE) 50 mcg/actuation nasal spray Sig: Use 2 sprays in each nostril once daily. levothyroxine (LEVOXYL) 50 mcg tablet 90 tablet 3 Sig: Take 1 tablet by mouth once daily. Take on empty stomach. For Thyroid losartan (COZAAR) 100 mg tablet 360 tablet 3 Sig: Take 1 tablet by mouth once daily. metFORMIN (GLUCOPHAGE) 500 mg tablet 360 tablet 3 Sig: Take 2 tablets by mouth two times a day with meals. metoprolol succinate ER (TOPROL XL) 25 mg 24 hr tablet 90 tablet 3 Sig: Take 1 tablet by mouth once daily. Lorene Jasso LPN May 11, 2025 8:42 AM documented in this encounter [facility] 04-27-2025 Note HNO ID: [id number] Author: VADIM TEIXEIRA APRN.APPLICATION INFRASTRUCTURE ENGINEER Service: ? Author Type: Nurse Practitioner Type: Progress Notes Filed: 04/27/2025 14:55 Note Text: Patient here for pre-op evaluation for left ear myringotomy and eustachian tube dilation. 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 A1C today is 10.6%, improved from last check which was 12.3%. Taking metformin and januvia. Also requesting [facility] paperwork for her daughter to be able to take days off work to get her to and from medical appointments because she can only drive short distances due to her eye condition. Have you or anyone in your family ever had a problem with anesthesia?No Could you be ?No Do you have a cough/bronchitis/sinusitis? No Have you had or have a asthma/hayfever/pneumonia?No Do you have a cold?No Have you had any difficulties breathing/SOB or emphysema?No Do you have any bleeding tendencies?No Have you had anemia or any other blood disease or blood transfusion?Yes, as a child, no transfusions Do you have a heart murmur or irregular heart beat?No Have you ever had a heart attack?No Have you ever had angina or pain in your chest? No Do you have any pain? No Have you ever had high blood pressure/low blood pressure?Yes, currently treated Do you have any contagious disease or infection/HIV?No Do you have diabetes/low blood sugar? Yes Have you ever had thyroid problems? Yes Have you ever had a stroke? Yes, 2019 Have you ever had epilepsy or had seizures?No Have you ever had kidney problems?No Have you ever had liver problems/jaundice/hepatitis?No Have you ever had any gallbladder disease?No Do you drink alcoholic beverages? If so how much?Yes, rare Do you smoke, or did you ever? If so, how much? For how long?No Do you use social drugs?No ADVANCED DIRECTIVES: Educated/Pamphlet Given:Yes Instructed to bring copy:Yes Do you have Health Care Surrogate?No Do you wish to select one? No Living will?(if yes, obtain copy and place on chart) No Are you an organ donor? No PAST MEDICAL HISTORY Diagnosis Date Asthma (HCC) [...] vaginal XTRNL PT ACTIV ECG TRANSMIS W/GABRIELE Allergies: ALLERGIES Allergen Reactions Fish Containing Pro* Hives, Swelling Iodine Unknown Shellfish Derived Other: See Comments Tetanus Vaccines An* Local Reaction Medications: fexofenadine (HEATHER) 180 mg tablet Take 1 tablet by mouth once daily as needed. losartan (COZAAR) 100 mg tablet take 1 [...] take 1 tablet by mouth once daily Review of Systems Constitutional: Negative for fever. HENT: Positive for ear pain. Negative for congestion. Eyes: Negative for visual disturbance. Respiratory: Negative for shortness (more content not included)... [facility] 04-27-2025 History of Present illness Narrative Patient here for pre-op evaluation for left ear myringotomy and eustachian tube dilation. 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 A1C today is 10.6%, improved from last check which was 12.3%. Taking metformin and januvia. Also requesting [facility] paperwork for her daughter to be able to take days off work to get her to and from medical appointments because she can only drive short distances due to her eye condition. Have you or anyone in your family ever had a problem with anesthesia?No Could you be ?No Do you have a cough/bronchitis/sinusitis? No Have you had or have a asthma/hayfever/pneumonia?No Do you have a cold?No Have you had any difficulties breathing/SOB or emphysema?No Do you have any bleeding tendencies?No Have you had anemia or any other blood disease or blood transfusion?Yes, as a child, no transfusions Do you have a heart murmur or irregular heart beat?No Have you ever had a heart attack?No Have you ever had angina or pain in your chest? No Do you have any pain? No Have you ever had high blood pressure/low blood pressure?Yes, currently treated Do you have any contagious disease or infection/HIV?No Do you have diabetes/low blood sugar? Yes Have you ever had thyroid problems? Yes Have you ever had a stroke? Yes, 2019 Have you ever had epilepsy or had seizures?No Have you ever had kidney problems?No Have you ever had liver problems/jaundice/hepatitis?No Have you ever had any gallbladder disease?No Do you drink alcoholic beverages? If so how much?Yes, rare Do you smoke, or did you ever? If so, how much? For how long?No Do you use social drugs?No ADVANCED DIRECTIVES: Educated/Pamphlet Given:Yes Instructed to bring copy:Yes Do you have Health Care Surrogate?No Do you wish to select one? No Living will?(if yes, obtain copy and place on chart) No Are you an organ donor? 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 PAST SURGICAL HISTORY Procedure Laterality Date OOPHORECTOMY PARTIAL/TOTAL UNI/BI 2007 Right PAST SURGICAL HISTORY OF 2007 Excision abdominal mass PAST SURGICAL HISTORY OF 10/14/2008 right foot soft tissue mass excision PAST SURGICAL HISTORY OF 11/03/2010 Left planter fasciotomy PAST SURGICAL HISTORY OF 12/11/2022 PFO VAGINAL HYSTERECTOMY UTERUS 250 GM/< 2006 Hysterectomy, vaginal XTRNL PT ACTIV ECG TRANSMIS W/R&I </30 DAYS 08/15/2019 Allergies: ALLERGIES Allergen Reactions Fish Containing Pro* Hives, Swelling Iodine Unknown Shellfish Derived Other: See Comments Tetanus Vaccines An* Local Reaction Medications: fexofenadine (HEATHER) 180 mg tablet Take 1 tablet by mouth once daily as needed. losartan (COZAAR) 100 mg tablet take 1 [...] take 1 tablet by mouth once daily Review of Systems Constitutional: Negative for fever. HENT: Positive for ear pain. Negative for congestion. Eyes: Negative for visual disturbance. Respiratory: Negative for shortness of breath. Cardiovascular: Negative for chest pain. Gastrointestinal: Negative for abdominal pain. Genitourinary: Negative for difficulty urinating. Musculoskeletal: Negative for arthralgias and myalgias. Skin: Negative for rash. Allergic/Immunologic: Positive for immunocompromised state. Neurological: Negative for headaches. Hematological: Negative for adenopathy. Objective BP 123/84 Pulse 62 Ht 162.6 cm (5' 4.02) Wt 91 kg (200 lb 9.9 oz) BMI 34.42 kg/m Physical Exam Vitals and nursing note reviewed. Constitutional: Appearance: She is well-developed. She is not ill-appearing. HENT: Head: Normocephalic. Right Ear: Tympanic membrane and ear canal normal. Left Ear: Tympanic membrane and ear canal normal. Nose: Nose normal. Mouth/Throat: Mouth: Mucous membranes are moist. Eyes: Extraocular Movements: Extraocular movements intact. Conjunctiva/sclera: Conjunctivae normal. Pupils: Pupils are equal, round, and reactive to light. Neck: Thyroid: No thyroid mass or thyromegaly. Cardiovascular: Rate and Rhythm: Normal rate and regular rhythm. Pulses: Normal pulses. Heart sounds: Normal heart sounds. Pulmonary: Effort: Pulmonary effort is normal. Breath sounds: Normal breath sounds and air entry. Abdominal: General: Abdomen is flat. Bowel sounds are normal. Palpations: Abdomen is soft. Musculoskeletal: General: Normal range of motion. Cervical back: Normal range of motion. Right lower leg: No edema. Left lower leg: No edema. Lymphadenopathy: Cervical: No cervical adenopathy. Skin: General: Skin is warm and dry. Capillary Refill: Capillary refill takes less than 2 seconds. Neurological: Mental Status: She is alert and oriented to person, place, and time. Cranial Nerves: No cranial nerve deficit. Deep Tendon Reflexes: Reflexes normal. Psychiatric: Mood and Affect: Mood normal. Assessment and Plan 1. ETD (Eustachian tube dysfunction), left (Primary) 2. Pre-op evaluation Cleared for surgery, does not need to hold Plavix per PCP. 3. Type 2 diabetes mellitus without complication, without long-term current use of insulin (HCC) Improving but A1C still above goal. Patient has concern about being able to afford Januvia, but declines any injectable medication options. Recommend to apply for [employer]'s patient assistance program. Increase Januvia to 100 mg and continue metformin 1000mg BID, work on diet. - HEMOGLOBIN A1C (POC) Vadim Teixeira APRN.APPLICATION INFRASTRUCTURE ENGINEER Recording using ambient AI software for draft documentation of the visit was discussed with the patient/authorized contact center representative; all questions welcomed and answered. Patient/authorized contact center representative agreed to proceed documented in this encounter [facility] 04-24-2025 Telephone encounter Note Received 04/24/2025 from [facility]. Placed in provider's inbox for review. [place] to [place] for scanning. [facility] 04-24-2025 Miscellaneous Notes Received 04/24/2025 from [facility]. Placed in provider's inbox for review. [place] to [place] for scanning. documented in this encounter [facility] 04-21-2025 History of Present illness Narrative Images from the original note were not included. Allergy and Immunology All aspects of this note have been reviewed and updated. Martha Venegas is a 54 year old female PMHx CVA, HTN, asthma, acquired hypothyroidism who was last seen by myself on 01/15/2025, here today for follow up. Since last visit, she notes that she took heather 1-2 tablets for 1 week after we [...] 1 tablet by mouth once daily fexofenadine (HEATHER) 180 mg tablet Take 1 tablet by [...] visit. PAST MEDICAL HISTORY Diagnosis Date Asthma ([facility]) Seasonal, uses Albuterol once a month Diabetes mellitus ([facility]) Family history of sleep apnea History of stroke Hypertension Mixed hyperlipidemia PFO (patent foramen ovale) ([facility]) Status post placement of implantable loop recorder Stroke (cerebrum) ([facility]) TMJ arthritis PAST SURGICAL HISTORY Procedure Laterality [...] of ingredients to foods and sending via [employer] message. > Discussed dermatology evaluation and consideration [...] arise. Elizabeth Pereira MD Allergy and Immunology [facility] Medical Decision Making: Problems: Moderate: 2+ stable chronic illnesses Data: Unique test(s) ordered: 2 Risk: Moderate: Drug management Medical Decision Making Level: 4 - Moderate documented in this encounter [facility] 04-21-2025 Note HNO ID: [id number] Author: ELIZABETH PEREIRA MD Service: ? Author [...] last visit, she notes that she took heather 1-2 tablets for 1 week after we [...] Take 1 tab (more content not included)... [facility] 04-21-2025 Telephone encounter Note Received EKG report from [facility]. Placed in provider's inbox for review. Route to [place] scanning [facility] 04-21-2025 Miscellaneous Notes Received EKG report from [facility]. Placed in provider's inbox for review. Route to [place] scanning documented in this encounter [facility] 04-10-2025 Telephone encounter Note Cardiac Clearance received from [facility] for Left myringotomy with T-Tube on 05/19/25 Form scanned and placed in Az's box for review. Duane Norris [facility] 04-10-2025 Miscellaneous Notes Cardiac Clearance received from [facility] for Left myringotomy with T-Tube on 05/19/25 Form scanned and placed in Az's box for review. Duane Norris documented in this encounter [facility] 04-09-2025 Telephone encounter Note Received imaging report for sinus/ facial bone from [facility]. Placed in provider's inbox for review. Route to [place] scanning [facility] 04-09-2025 Miscellaneous Notes Received imaging report for sinus/ facial bone from [facility]. Placed in provider's inbox for review. Route to [place] scanning documented in this encounter [facility] 04-09-2025 Radiology Diagnostic study note [facility] [address] [place] [address] Sinus/Facial Bone MR#: [id number] Acct: [id number] Name: MARTHA VENEGAS Rep #: [id number] : 1970 F 54 From: Brian Duncan MD PCP: Dr. Jaspreet Davenport MD Status: REG CLI Study:Sinus/Facial Bone Date of Exam: Exam# [id number] Ordering Dr: Dandre Melissa MD PROCEDURE: SINUS/FACIAL [...] 3. Other findings as noted. Reading Location: [id number] CC: Dr. Dandre Melissa MD; Dr. 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 [facility] 03-13-2025 Miscellaneous Notes [facility] paperwork faxed today. documented in this encounter [facility] 03-09-2025 History and physical note [facility] [address] HISTORY AND PHYSICAL EXAMINATION SHORT FORM EVALUATION [...] Hypertension Mixed hyperlipidemia PFO (patent foramen ovale) ([facility]) Status post placement of implantable loop recorder Stroke (cerebrum) ([facility]) TMJ arthritis PAST SURGICAL HISTORY: PAST SURGICAL [...] Inject 0.3 mL intramuscularly as needed. fexofenadine (HEATHER) 180 mg tablet Take 1 tablet daily. [...] Obesity PLAN OF TREATMENT: Colonoscopy SIGNATURE: Jemima Wnin MD PATIENT NAME: Martha Venegas DATE: March 09, 2025 TIME: 8:40 AM [facility] Work Phone: 03-09-2025 History and physical note ENDO HISTORY AND PHYSICAL EXAMINATION SHORT FORM EVALUATION DATE: 03/09/2025 EVALUATION TIME: 8:40 AM CHIEF COMPLAINT: Stool Guaiac Positive HPI: This is a 54 year old female who presents with Positive immunochemical fecal occult blood. 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 fexofenadine (HEATHER) 180 mg tablet Take 1 tablet daily. [...] AM documented in this encounter [facility] 03-09-2025 Nurse Note PRE OP LEARNING ASSESSMENT PROCEDURE/SURGERY: GI PROCEDURES: Colonoscopy READINESS TO LEARN COGNITIVE ABILITY: Alert and oriented MOTIVATION TO LEARN: Eager FAMILY SUPPORT: High - Very involved in pt care PATIENT LEARNS BEST BY: Individual Instruction FACTORS AFFECTING LEARNING: None PHYSICAL LIMITATIONS AFFECTING LEARNING: None Electronically Signed By: Charo Ferrera RN In Department: AMBULATORY SURGERY [facility] 03-09-2025 Nurse Note PRE OP LEARNING ASSESSMENT PROCEDURE/SURGERY: GI PROCEDURES: Colonoscopy READINESS TO LEARN COGNITIVE ABILITY: Alert and oriented MOTIVATION TO LEARN: Eager FAMILY SUPPORT: High - Very involved in pt care PATIENT LEARNS BEST BY: Individual Instruction FACTORS AFFECTING LEARNING: None PHYSICAL LIMITATIONS AFFECTING LEARNING: None Electronically Signed By: Charo Ferrera RN In Department: AMBULATORY SURGERY documented in this encounter [facility] 03-04-2025 Telephone encounter Note [facility] forms received. Placed in pcp inbox for review. [facility] 03-04-2025 Miscellaneous Notes [facility] forms received. Placed in pcp inbox for review. Noted, will await receipt of fax Martha is calling Isabel Davenport MD today to advise she is having a procedure on 03/09/2025 , the [facility] paperwork will be coming to request to be off starting 03/07/2025 and 03/08/2025 which are her colonoscopy prep dates as the patient is already off on 03/09/2025. This is just a fyi that this paperwork with be coming from [facility] for these two [facility] dates Patient has been identified by name and birthdate. Duration of symptoms: N/A Person calling: self Call patient at: on cell [phone] (home) [phone] (cell) Was an appointment scheduled: No Closing statement: Results or non-symptom based questions: Thank you for calling [facility], your call will be returned within the next business day. Luann Matthews [employer] documented in this encounter [facility] 03-03-2025 Telephone encounter Note Noted, will await receipt of fax [facility] 03-03-2025 Telephone encounter Note This patient has been contacted and rescheduled to [email or web address] Work Phone: 03-03-2025 Miscellaneous Notes This patient has been contacted and rescheduled to [facility] Per Dr. Wade, This pt. needs rescheduled under MAC. Please reach out to pt and assist in rescheduling. Thank you. Yanet Meyer, RN documented in this encounter [facility] 03-03-2025 Telephone encounter Note Per Dr. Wade, This pt. needs rescheduled under [facility]. Please reach out to pt and assist in rescheduling. Thank you. Yanet Meyer, RN [facility] 03-03-2025 Telephone encounter Note Martha is calling Isabel Davenport MD today to advise she is having a procedure on 03/09/2025 , the [facility] paperwork will be coming to request to be off starting 03/07/2025 and 03/08/2025 which are her colonoscopy prep dates as the patient is already off on 03/09/2025. This is just a fyi that this paperwork with be coming from [facility] for these two [employer] dates Patient has been identified by name and birthdate. Duration of symptoms: N/A Person calling: self Call patient at: on cell [phone] (home) [phone] (cell) Was an appointment scheduled: No Closing statement: Results or non-symptom based questions: Thank you for calling [facility], your call will be returned within the next business day. Luann Huynh [facility] 02-27-2025 Note HNO ID: [id number] Author: ETHAN ROMERO Mammo Tech Service: ? Author Type: Physical Therapist Aide Type: Progress Notes Filed: 02/27/2025 08:38 Note [...] PATIENT PRESENTS WITH AN IMPLANTABLE OR ATTACHED METAL GAUGE MAKER: No RADIOLOGY DEPARTMENT: Mammography PERIPHERAL IV DATA: Not applicable SIGNED BY: Lukasz Sebastian February 27, 2025 8:38 AM [facility] 02-23-2025 Telephone encounter Note Pt's name has been added to [facility]redondo procedure board. Colleen Herrera RN [facility] 02-23-2025 Miscellaneous Notes Pt's name has been added to [facility]redondo procedure board. Colleen Herrera, KELLEN Patient is scheduled for an ILR Removal on 04/[address] Alcala. The hospital will call the day before between 2-5pm with your arrival time. You should not eat or drink after midnight the day before the procedure. 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 Informed of instructions as stated above. Patient verbalized understanding. Sury Oliveira documented in this encounter [facility] 02-23-2025 Telephone encounter Note Patient is scheduled for an ILR Removal on 04/[address] Alcala. The hospital will call the day before between 2-5pm with your arrival time. You should not eat or drink after midnight the day before the procedure. 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 Informed of instructions as stated above. Patient verbalized understanding. Sury Oliveira [facility] 02-23-2025 Telephone encounter Note Informed patient that Dr. Alcala will make arrangements for device explantation. Patient verbalizes understanding. Cesia Flores LPN [facility] 02-23-2025 Miscellaneous Notes Informed patient that Dr. Alcala will make arrangements for device explantation. Patient verbalizes understanding. Cesia Flores LPN Will make arrangements for device explantation, please inform the patient. Belén Alcala MD documented in this encounter [facility] 02-23-2025 Telephone encounter Note Will make arrangements for device explantation, please inform the patient. Belén Alcala MD [facility] 02-16-2025 Telephone encounter Note Looks like Dr. Alcala had implanted the loop recorder. I've included him in this message to see if he can arrange extraction. Thanks, Merari Camarillo MD [facility] 02-16-2025 Miscellaneous Notes Looks like Dr. Alcala [...] about having it removed. Thanks Phyllis Bernardo APRN.APPLICATION INFRASTRUCTURE ENGINEER documented in this encounter [facility] 02-16-2025 Telephone encounter Note This patient has an old loop recorder in that is no longer being used. She has misplaced the card for it and now is being told she can't fly with it. She is inquiring about having it removed. Thanks Phyllis Bernardo APRN.APPLICATION INFRASTRUCTURE ENGINEER [facility] Work Phone: 02-16-2025 Note HNO ID: [id number] Author: PHYLLIS BERNARDO APRN.SRAVANTHI Service: ? 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 fexofenadine (HEATHER) 180 mg tablet Take 1 tablet daily. [...] Review of Systems (more content not included)... [facility] 02-16-2025 History of Present illness Narrative [...] Allergies. 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 fexofenadine (HEATHER) 180 mg tablet Take 1 tablet daily. [...] PFO closure was attempted on 12/11/2022 at [facility], but no intracardiac shunting was found. [...] next follow-up in 6 months. Phyllis Bernardo APRN.APPLICATION INFRASTRUCTURE ENGINEER Return in about 6 months (around 08/18/2025), or with Dr. Camarillo or DALIA. Medical Decision Making: Problems: Moderate: 2+ stable chronic illnesses Data: Unique test result(s) reviewed: 1 Risk: Moderate: Drug management Medical Decision Making Level: 4 - Moderate Please Note: This office note has been created using [email or web address], and consent was obtained by the patient documented in this encounter [facility] 02-16-2025 Instructions Phyllis Bernardo APRN.SRAVANTHI - 02/16/2025 10:00 AM EDT Continue current regimen I will discuss loop recorder removal and update you Follow up in 6 months with DALIA or Dr. Camarillo Please call if you have any questions or concerns documented in this encounter [facility] 02-03-2025 Telephone encounter Note Received 02/03/2025 from [facility] . Placed in provider's inbox for review. [place] to [place] for faxing. [facility] 02-03-2025 Miscellaneous Notes Received 02/03/2025 from [facility] . Placed in provider's inbox for review. [place] to [place] for faxing. documented in this encounter [facility] 01-29-2025 Telephone encounter Note The following approved medication requests have been transmitted electronically. Requested Prescriptions Signed Prescriptions Disp Refills clopidogrel (PLAVIX) 75 mg tablet 360 tablet 3 Sig: take 1 tablet by mouth once daily Authorizing Provider: ISABEL DAVENPORT MD [facility] 01-29-2025 Telephone encounter Note The following approved medication requests have been transmitted electronically. Requested Prescriptions Signed Prescriptions Disp Refills losartan (COZAAR) 100 mg tablet 360 tablet 3 Sig: take 1 tablet by mouth once daily Authorizing Provider: ISABEL DAVENPORT MD [facility] 01-29-2025 Miscellaneous Notes The following approved medication [...] AM documented in this encounter [facility] 01-29-2025 Miscellaneous Notes The following approved medication [...] AM documented in this encounter [facility] 01-29-2025 Telephone encounter Note Prescription Refill Information [...] January 29, 2025 11:37 AM [facility] 01-29-2025 Telephone encounter Note Prescription Refill Information [...] January 29, 2025 10:03 AM [facility] 01-15-2025 Note HNO ID: [id number] Author: CARMELITA LARSON RN Service: ? Author [...] By Carmelita Larson RN In Department: ALLERGY [facility] 01-15-2025 History of Present illness Narrative [...] Inject 0.3 mL intramuscularly as needed. fexofenadine (HEATHER) 180 mg tablet Take 1 tablet daily. [...] Behavior normal. Diagnostic Testing: Labs Latest Ref Rn 04/14/2024 11/11/2024 01/02/2025 WBC 3.70 - 11.00 [...] arise. Elizabeth Pereira MD Allergy and Immunology [facility] Medical Decision Making: Problems: Moderate: New problem with uncertain prognosis Data: Unique test result(s) reviewed: 3+ Risk: Moderate: Drug management Medical Decision Making Level: 4 - Moderate documented in this encounter [facility] 01-15-2025 Note HNO ID: [id number] Author: ELIZABETH PEREIRA MD Service: ? Author [...] Inject 0.3 mL intramuscularly as needed. fexofenadine (HEATHER) 180 mg tablet Take 1 tablet daily. [...] by mouth once (more content not included)... [facility] 01-05-2025 Note HNO ID: [id number] Author: ISABEL DAVENPORT MD Service: ? Author Type: Physician Type: Progress Notes Filed: 01/05/2025 11:09 Note Text: Off work Dec 16. Family Isabel Davenport MD [facility] 01-05-2025 History of Present illness Narrative [...] normal distal pulses Data Reviewed Latest Ref [facility] 01/02/2025 WBC 3.70 - 11.00 k/uL [...] to breast cancer Plan: Pt brought in [facility] paperwork, was out of work from December [...] AM documented in this encounter [facility] 01-05-2025 Note HNO ID: [id number] Author: ISABEL DAVENPORT MD Service: ? Author [...] placement of implantable loop recorder Stroke (cerebrum) ([facility]) TMJ arthritis PHYSICAL EXAMINATION BP 132/80 Pulse [...] complication, without long-term current use of insulin ([facility]) (primary encounter diagnosis) Comment: A1c continues to [...] to breast cancer Plan: Pt brought in [facility] paperwork, was out of work from December [...] sooner as needed (more content not included)... [facility] 12-25-2024 Telephone encounter Note Received [facility] paperwork from [facility]. Placed in provider's inbox for review. Route to [place] fax [facility] 12-25-2024 Miscellaneous Notes Received [facility] paperwork from [facility]. Placed in provider's inbox for review. Route to [place] fax documented in this encounter [facility] 12-23-2024 Note Patient Outreach (IN TMMN) MARTHA VENEGAS ([id number]) 1970 F Date Time Provider Department 12/23/24 [...] [E11.9] Order(s):COMPLETE BLOOD COUNT [SQCBC] Order #: [id number] FUTURE Prescriptions as of 12/26/2024 - atorvastatin [...] DM - Uncontrolled 63 Insulin: No - Lancets lancets Test blood [...] 04/08/2024 Presbyopia [H52.4] 04/08/2024 Encounter Status:Closed by KRUPA PRAJAPATIR on 12/26/24 [facility] 12-19-2024 Note HNO ID: [id number] Author: ?, ?, ? Service: ? Author Type: ? Type: Progress Notes Filed: 12/19/2024 09:12 Note Text: Called and scheduled pt appts. [facility] 12-19-2024 History of Present illness Narrative Called and scheduled pt appts. 1st attempt to schedule with primary care, sent [employer] message. Millie Balderrama Patient is overdue for office visit for diabetes management, please schedule LETHA with either provider. Also due for fasting labs, please complete 1 week prior to appointment, offer to schedule lab as well Vadim Teixeira APRN.SRAVANTHI documented in this encounter [facility] 12-17-2024 Note HNO ID: [id number] Author: ?, ?, ? Service: ? Author Type: ? Type: Progress Notes Filed: 12/19/2024 09:12 Note Text: 1st attempt to schedule with primary care, sent [employer] message. Millie Balderrama [facility] 12-17-2024 Note HNO ID: [id number] Author: VADIM TEIXEIRA APRN.CNP Service: ? Author Type: Nurse Practitioner Type: Progress Notes Filed: 12/19/2024 09:12 Note Text: Patient is overdue for office visit for diabetes management, please schedule LETHA with either provider. Also due for fasting labs, please complete 1 week prior to appointment, offer to schedule lab as well Vadim Teixeira APRN.SRAVANTHI [facility] 12-17-2024 Note Patient Outreach (JAILENE VIRAMONTES) THEOMARTHA ([id number]) 1970 F Date Time Provider Department 12/17/24 [...] attempt to schedule with primary care, sent [employer] message. Arun Ni 12/19/2024 9:12 AM Signed [...] [E78.2] Order(s):LIPID PANEL BASIC [SQLIPB] Order #: [id number] FUTURE HEMOGLOBIN A1C [EMPBI1Q] Order #: [id number] FUTURE Prescriptions as of 12/19/2024 - atorvastatin [...] Encounter Status:Closed by ARUN FRAZIER on 12/19/24 [facility] 11-12-2024 Telephone encounter Note Pt was notified of the results. Pt verbalized understanding. Ted Dave MA [facility] 11-12-2024 Miscellaneous Notes Pt was notified of [...] days, such as taking additional steps for street cleaner air, hygiene, masks, physical distancing, and/or [...] improving. documented in this encounter [facility] 11-12-2024 Telephone encounter Note You tested positive [...] days, such as taking additional steps for street cleaner air, hygiene, masks, physical distancing, and/or [...] are worsening or not improving. [facility] Work Phone: 11-11-2024 History of Present illness [...] PATIENT PRESENTS WITH AN IMPLANTABLE OR ATTACHED METAL GAUGE MAKER: No RADIOLOGY DEPARTMENT: General X-ray: Exam(s) Completed: Chest X-Ray PERIPHERAL IV DATA: Not applicable SIGNED BY: RT Mariela(Herbie) November 11, 2024 2:57 PM documented in this encounter [facility] 11-11-2024 Note HNO ID: [id number] Author: LUIS A HADDAD RT(R) Service: Radiology [...] PATIENT PRESENTS WITH AN IMPLANTABLE OR ATTACHED METAL GAUGE MAKER: No RADIOLOGY DEPARTMENT: General X-ray: Exam(s) Completed: Chest X-Ray PERIPHERAL IV DATA: Not applicable SIGNED BY: RT Mariela(Herbie) November 11, 2024 2:57 PM [facility] 11-11-2024 Note HNO ID: [id number] Author: ENEIDA LOYOLA PA Service: ? Author Type: Physician Case Manager Specialist Type: Progress Notes Filed: 11/11/2024 15:21 Note Text: This note was created using CheapFlightsFinderter. Subjective Martha Venegas is a 54 year [...] ICD10: R05.1 (prim (more content not included)... [facility] 11-11-2024 History of Present illness Narrative [...] Renteria documented in this encounter [facility] 09-15-2024 Telephone encounter Note Prescription Refill Information [...] September 15, 2024 9:45 AM [facility] 09-15-2024 Miscellaneous Notes Prescription Refill Information The [...] AM documented in this encounter [facility] 07-04-2024 Telephone encounter Note The following approved medication requests have been transmitted electronically. Requested Prescriptions Signed Prescriptions Disp Refills atorvastatin (LIPITOR) 40 mg tablet 30 tablet 1 Sig: take 1 tablet by mouth once daily Authorizing Provider: ISABEL DAVENPORT MD [facility] 07-04-2024 Miscellaneous Notes The following approved medication [...] AM documented in this encounter [facility] 07-04-2024 Telephone encounter Note Prescription Refill Information [...] Napoles MA July 04, 2024 9:57 AM [facility] 06-11-2024 History of Present illness Narrative HISTORY [...] town. 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 She was found to have hemianopsia and was taken to the ER for further evaluation. She did have an MRI and MRA of the brain revealing scattered areas of acute infarct in the right occipital lobe with an occluded right CHAIN CARRIER. She was admitted to [facility] for further evaluation. Of note, prior to [...] of atrial arrhythmias. Patient was referred to [facility] for PFO closure. 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 Dx: Type 2 DM - Uncontrolled Insulin: No TRUE METRIX GLUCOSE METER Glucose [...] have confirmed and edited as necessary, the [facility] and [facility] PHYSICAL EXAMINATION: BP 180/103[hasnt taken medication [...] aneurysm noted with evidence of PFO with fywb-mk-ctkli shunting by color Doppler and right to left shunting with agitated saline contrast. I have personally reviewed the Electrocardiogram and reports of prior echocardiograms as per above. I also reviewed records of patient's hospitalization at [facility] in 01/21 in [facility]. ASSESSMENT: Ms. Venegas is a 53 year [...] MD documented in this encounter [facility] 06-11-2024 Instructions Merari Camarillo MD - 06/11/2024 2:42 PM EDT Restart taking medications Monitor home blood pressures and call us with readings in 4 weeks Once blood pressures improved, restart regular exercise program with goal of walking 30 minutes, 5 days weekly documented in this encounter [facility] 06-11-2024 Nurse Note Patient has no cardiac complaints today. Mckenzie Flores CMA [facility] 06-11-2024 Nurse Note Patient has no cardiac complaints today. Mckenzie Flores CMA documented in this encounter [facility] 05-12-2024 Telephone encounter Note Prescription Refill Information [...] May 12, 2024 10:55 AM [facility] 05-12-2024 Miscellaneous Notes Prescription Refill Information The [...] AM documented in this encounter [facility] 05-12-2024 Telephone encounter Note Prescription Refill Information [...] May 12, 2024 9:38 AM [facility] 05-12-2024 Miscellaneous Notes Prescription Refill Information The [...] AM documented in this encounter [facility] 04-17-2024 Telephone encounter Note Made appointment for patient [facility] 04-17-2024 Miscellaneous Notes Made appointment for patient Please schedule appointment to address the omar Davenport MD documented in this encounter [facility] 04-16-2024 Telephone encounter Note Please schedule appointment to address the omar Davenport MD [facility] 04-08-2024 History of Present illness Narrative Low vision right eye category 1, low vision left eye category 1 (primary encounter diagnosis) Homonymous hemianopsia, left Occipital stroke (hcc) Presbyopia Recommend [facility] portable video magnifier for reading fine print, writing, 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 Recommend Volusionux 10D LED lighted handheld magnifier and stand [...] doctor. documented in this encounter [facility] 03-28-2024 History of Present illness Narrative Encounter [...] AM documented in this encounter [facility] 03-03-2024 Telephone encounter Note Form scanned into pt chart per request of pt. Chuy sent notifying pt. Closing encounter. [facility] 03-03-2024 Miscellaneous Notes Form scanned into pt chart per request of pt. Chuy sent notifying pt. Closing encounter. Form filled out/ signed. Please advise pt once it's sent. Remind her the glucose was high on the blood test. We need to see her back in the office to address the sugar Isabel Davenport MD documented in this encounter [facility] 02-29-2024 Telephone encounter Note Form filled out/ signed. Please advise pt once it's sent. Remind her the glucose was high on the blood test. We need to see her back in the office to address the sugar Isabel Davenport MD [facility] 02-28-2024 Telephone encounter Note Please review and advise [facility] 02-28-2024 Miscellaneous Notes Please review and advise documented in this encounter [facility] 02-27-2024 Note Formatting of this n ote might be different from the original. February 28, 2024 PID: [id number] Martha Venegas [address] [place] [address] Dear Ms. Venegas, We are pleased to [...] be kept on file at [facility] as part of your permanent medical record and are available for your continuing care. Thank you for allowing us to help in meeting your health care needs. Sincerely, Dr. Griffin Interpreting Radiologist [facility] (Normal over 40) [facility] 02-27-2024 Miscellaneous Notes February 28, 2024 PID: [id number] Martha Venegas [address] [facility] [address] [place] [address] Dear Ms. Venegas, We are pleased to [...] be kept on file at [facility] as part of your permanent medical record and are available for your continuing care. Thank you for allowing us to help in meeting your health care needs. Sincerely, Dr. Griffin Interpreting Radiologist [facility] (Normal over 40) documented in this encounter [facility] 02-26-2024 History of Present illness Narrative Radiology [...] PATIENT PRESENTS WITH AN IMPLANTABLE OR ATTACHED METAL GAUGE MAKER: No RADIOLOGY DEPARTMENT: Mammography PERIPHERAL IV DATA: Not applicable SIGNED BY: Clari Kirko Monik February 26, 2024 2:55 PM documented in this encounter [facility] 01-08-2024 History of Present illness Narrative CHIEF [...] placement of implantable loop recorder Stroke (cerebrum) ([facility]) TMJ arthritis PHYSICAL EXAMINATION BP 164/104 Pulse [...] January 08, 2024 4:41 PM Provider Attestation: I, Isabel Davenport MD, personally [...] PM documented in this encounter [facility] 01-08-2024 Miscellaneous Notes Spoke with Martha Venegas [...] MD documented in this encounter [facility] 01-06-2024 Miscellaneous Notes Patient calling to ask if she needs to fast for her lab tests scheduled for tomorrow. Lipid panel, CBC and BMP ordered. Advised it is an 8-10 hour fast, water as much as she likes and black coffee. Patient verbalized understanding/agreement to all information discussed. documented in this encounter [facility] 01-04-2024 History of Present illness Narrative Patient did not attend appointment. Isabel Davenport MD documented in this encounter [facility] 01-02-2024 Miscellaneous Notes 1st attempt,called pt to [...] medication. Vadim Lau APRN.SRAVANTHI Pharmacy verified in [facility] Patient has been identified by name [...] LPN documented in this encounter [facility] 04-10-2023 Miscellaneous Notes Patient's request for medication [...] LPN documented in this encounter [facility] 03-27-2023 Miscellaneous Notes Received 03/27/2023 from [facility]. Placed in provider's inbox for review. Route to [place] for scanning Right gluteal pain Zanaflex 4 mg Naproxen 500 mg documented in this encounter [facility] 03-06-2023 History of Present illness Narrative Episode [...] Patient to be seen for Therapeutic exercise (76629), Neuromuscular re-education (48243), Manual therapy (32031), Self-residential management (13988), Patient/Family/Caregiver Education PLAN FOR NEXT VISIT: Flexion [...] 10 sec each 3: Hooklying PPT with january 2 x 10 (VC's for proper performance of PPT with the entire january) Skilled Intervention: Patient was educated in proper exercise technique and purpose for exercises. Correct performance of therapeutic exercises was facilitated with verbal and visual cuing. Billing Therapeutic Exercise Treatment Minutes: 45 Total Treatment Time Minutes (timed/untimed): 45 Johny Flores PT documented in this encounter [facility] 02-15-2023 Miscellaneous Notes Patient's request for medication is as follows: Requested Prescriptions Pending Prescriptions Disp Refills atorvastatin (LIPITOR) 40 mg tablet [Pharmacy Med Name: ATORVASTATIN 40 MG TABLET] 90 tablet 3 Sig: take 1 tablet by mouth once daily Last seen 12/25/2022. Prescription(s) as above. Please process accordingly. Cesia Flores LPN documented in this encounter [facility] 02-15-2023 History of Present illness Narrative Episode [...] PT documented in this encounter [facility] 02-06-2023 Miscellaneous Notes Patient would like mailed to her home. Letter placed in mail. Handicap placard printed in [employer]. It has to have an original signature on it, can't be sent electronlcally Will mail it Isabel Davenport MD Please advise. documented in this encounter [facility] 01-29-2023 History of Present illness Narrative Brianda Decker PA-C Department of Orthopaedics Orthopaedics [address] 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 Her pain is in her upper thigh and deep into her buttock as well. Works at [employer]. 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 Taking Tylenol for the pain like candy and does not help. She did have a Tramadol she found at home and did not help either. X-rays done today. documented in this encounter [facility] 01-05-2023 Miscellaneous Notes January 08, 2023 PID: [id number] Martha Alvarez Theo [address] [place] [address] Dear Ms. Venegas, We are pleased to [...] be kept on file at [facility] as part of your permanent medical record and are available for your continuing care. Thank you for allowing us to help in meeting your health care needs. Sincerely, Dr. Figueroa Interpreting Radiologist [facility] (Normal over 40) documented in this encounter [facility] 01-03-2023 Miscellaneous Notes Letter has been written sent through Pretty Daniels January 03, 2023 8:06 AM documented in this encounter [facility] 01-01-2023 Miscellaneous Notes Patient called because said see's many appointments and testing in her chart. Asked about Dr. Duffy apointment and why was scheduled. I said could be a referral and could transfer her to scheduling. She decided to call Dr. Camarillo office to speak with them. Bessie documented in this encounter [facility] 12-26-2022 Miscellaneous Notes Hi Ms. Venegas, We [...] AM documented in this encounter [facility] 12-25-2022 History of Present illness Narrative HISTORY [...] town. 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 She was found to have hemianopsia and was taken to the ER for further evaluation. She did have an MRI and MRA of the brain revealing scattered areas of acute infarct in the right occipital lobe with an occluded right CHAIN CARRIER. She was admitted to [facility] for further evaluation. Of note, prior to [...] last clinic visit, patient was referred to [facility] for PFO closure. She did undergo [...] uses Albuterol once a month Diabetes mellitus ([facility]) Family history of sleep apnea History of stroke Hypertension Mixed hyperlipidemia PFO (patent foramen ovale) Status post placement of implantable loop recorder Stroke (cerebrum) ([facility]) TMJ arthritis PAST SURGICAL HISTORY Procedure Laterality [...] have confirmed and edited as necessary, the [facility] and [facility] PHYSICAL EXAMINATION: BP 146/100 Pulse 72 [...] aneurysm noted with evidence of PFO with edgl-yu-bswdz shunting by color Doppler and right to left shunting with agitated saline contrast. I have personally reviewed the Electrocardiogram and reports of prior echocardiograms as per above. I also reviewed records of patient's hospitalization at [facility] in 01/21 in [facility]. ASSESSMENT: Ms. Venegas is a 52 [...] which included preparing to see the patient, uapc-fs-jzma patient care, completing clinical documentation, obtaining and/or reviewing separately obtained history, performing a medically appropriate examination, and counseling and educating the patient/family/caregiver. Merari Camarillo MD documented in this encounter [facility] 12-25-2022 Nurse Note Patient has no cardiac complaints today. Mckenzie Flores CMA documented in this encounter [facility] 12-20-2022 Miscellaneous Notes Called patient: She states she is still sore on both groin sites since intervention. She states she is still having some bloody discharge more on the R>L. She states it is still red but slight yellow like, but since then has cleared up. She did mention she will be seeing her rubber stamps and dies supervisor on Sunday. I did recommend she see someone locally (urgent care, PCP, rubber stamps and dies supervisor) for a site check. Patient states right now it has cleared up so she will have the site checked on Sunday at her local rubber stamps and dies supervisor. We discussed if symptoms worsen (chest pain, N/T in legs, bleeding from the site, discharge from the site, signs of infection) patient needs to be seen at her local urgent care or ED. \ Patient states she will let us know if she needs a return to work letter, but her rubber stamps and dies supervisor might be able to do it. Patient verbalized understanding and agrees with plan of care. Paola Milian RN documented in this encounter [facility] 12-10-2022 Miscellaneous Notes CARDIOVASCULAR LAB INSTRUCTIONS: Readiness [...] CARDIOLOGY. documented in this encounter [facility] 11-20-2022 History of Present illness Narrative Chief [...] started a new job Previously worked for [employer], now [employer]. Past medical history, appointments, medications, allergies reviewed. [...] Abs Lymph 1.00 - 4.00 k/uL 3.47 Laporte% % 7.3 Abs Laporte <0.87 k/uL 0.64 Eosin% % 2.2 Abs [...] November 20, 2022 11:40 AM Provider Attestation: IIsabel MD, personally performed [...] PM documented in this encounter [facility] 11-15-2022 Miscellaneous Notes Patient's request for medication [...] LPN documented in this encounter [facility] 11-13-2022 Miscellaneous Notes 1st attempt. Left patient [...] and supplies to be sent to [facility]. Patient has no preference. She said what ever insurance will pay for. documented in this encounter [facility] 10-24-2022 Miscellaneous Notes The following approved medication [...] Order(s) pended. Please advise. Carmelita Hardwick MA, HEAVY COIL WINDER documented in this encounter [facility] 10-23-2022 Miscellaneous Notes Received ED summary, labs, EKG, chest xray for dizziness from [facility]. Placed in provider's inbox for review. Route to [place] scannning documented in this encounter [facility] 09-05-2022 Instructions Jaspreet Acuña APRN.APPLICATION INFRASTRUCTURE ENGINEER - 09/05/2022 6:31 PM EDT How to [...] you. documented in this encounter [facility] 09-05-2022 History of Present illness Narrative Subjective [...] hyperlipidemia PFO (patent foramen ovale) Stroke (cerebrum) ([facility]) TMJ arthritis PAST SURGICAL HISTORY Procedure Laterality [...] Sinus: Maxillary sinus tenderness present. Mouth/Throat: Lips: [place]. Mouth: Mucous membranes are moist. Pharynx: Oropharynx [...] of care. This note was generated using Biotectix software. It may contain errors in wording, punctuation, or spelling. Jaspreet Acuña APRN.SRAVANTHI documented in this encounter [facility] 07-21-2022 Nurse Note Patient denies any cardiac complaints or symptoms. documented in this encounter [facility] 07-21-2022 History of Present illness Narrative Chief [...] 3. Atrial septum: Color Doppler shows a pjcym-tf-kkum shunt. There is evidence of right to [...] - Continue current medication. Parish Fernandez MD Tangled Yarn Spool Straightener of Internal Medicine [facility] Regional Section of Interventional Cardiology Underwater Hunter Trapper of Structural Heart Disease [place] [address] Facsimile: [phone] Email: documented in this encounter [facility] 07-17-2022 Miscellaneous Notes Called and informed pt. Pt indicated understanding. I sent these to [facility] Wooten. Vadim Lau APRN.SRAVANTHI Please advise. Martha Venegas is calling Isabel Davenport MD today requesting orders for glucose meter and blood pressure monitor. Please fax to [facility] Kate Please contact patient once the orders have been sent documented in this encounter [facility] 07-12-2022 History of Present illness Narrative Encounter [...] AM documented in this encounter [facility] 06-14-2022 History of Present illness Narrative HISTORY [...] town. 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 She was found to have hemianopsia and was taken to the ER for further evaluation. She did have an MRI and MRA of the brain revealing scattered areas of acute infarct in the right occipital lobe with an occluded right CHAIN CARRIER. She was admitted to [facility] for further evaluation. Of note, prior to [...] have confirmed and edited as necessary, the [facility] and ROS PHYSICAL EXAMINATION: BP 134/84 Pulse 73 Resp [...] diastolic function. No significant valve disease. OSH [facility], 01/20/19: Normal LV systolic function with ejection fraction 55%. Redundant noncoronary cusp with mild aortic insufficiency. Small atrial septal aneurysm noted with evidence of PFO with zslv-cz-spslr shunting by color Doppler and right to left shunting with agitated saline contrast. I have personally reviewed the Electrocardiogram and reports of prior echocardiograms as per above. I also reviewed records of patient's hospitalization at [facility] in 01/21 in [facility]. ASSESSMENT: Ms. Venegas is a 51 year [...] her prior TTE and LB performed at [facility]. I reviewed that PFO is a common [...] MD documented in this encounter [facility] 06-14-2022 Instructions Merari Camarillo MD - 06/14/2022 11:12 AM EDT LIFESTYLE CHANGE A healthy lifestyle is the most important component of your overall treatment plan. Please give serious thought to the following areas and commit to making senior care changes. EAT A WHOLE FOOD, PLANT BASED [...] area. documented in this encounter [facility] 06-14-2022 Nurse Note Patient has no cardiac complaints today. Mckenzie Flores CMA documented in this encounter [facility] 03-15-2022 Miscellaneous Notes Cardiac clearance form received and placed in Sosa's door box. Rosalinda Colorado LPN Left voicemail with surgery coordinator at [facility] to call back so we can get another form sent. Rosalinda Colorado LPN Pt Was seen yesterday In Office. Preop Cardiac eval Orthopedic surgery Thru [facility] notes say That clearance form Placed in Dr Shepard mail Box. I reviewed Records and do Not see the form. Nothing scanned into [facility] either Please call [facility] and obtain Clearance form Thanks Jennie Sosa APRN.APPLICATION INFRASTRUCTURE ENGINEER documented in this encounter [facility] 03-14-2022 History of Present illness Narrative Chief Complaint: Patient presents with: Cardiac Clearance: ortho surgery History of Present Illness: Martha Venegas is a 51 year old female with history of hypertension, hyperlipidemia, diabetes, obesity remote CVA in January 2019. To provide brief history patient reported that in January 2019 she had facial symptoms as well as confusion double vision and blurry vision. At [facility] She had an MRI/MRA of the brain revealing scattered areas of acute infarct in the right occipital lobe with an acute right CHAIN CARRIER. She was admitted to [facility]. She did have LB as well as [...] that is yet to be scheduled With [facility] She denies any complaints of chest [...] aneurysm noted with evidence of PFO with hvyr-gy-vohyz shunting by color Doppler and right to [...] 30 documented in this encounter [facility] 03-14-2022 Nurse Note Patient has no cardiac complaints today. Mckenzie Flores CMA documented in this encounter [facility] 03-01-2022 Miscellaneous Notes Clearance form received from [facility]. Form placed in Dr. Camarillo's door box. Rosalinda Colorado LPN documented in this encounter [facility] 02-18-2022 Instructions Danette Lopez APRN.SRAVANTHI - 02/18/2022 2:00 PM EDT Patient instructed to: * Use cold compresses, 20 minutes 4-6 times per day * Use Grabill Solution and Aveeno products as needed. * Wash all clothes. * Return to primary care provider if no relief in 3-4 days. documented in this encounter [facility] 02-18-2022 History of Present illness Narrative This note was created using Lumiatar[employer]. Subjective Martha Venegas is a 51 year [...] MRI. States last weekend she was in [place] and had bed bug bites to her [...] to follow up with ortho. Danette Lopez APRN.APPLICATION INFRASTRUCTURE ENGINEER documented in this encounter [facility] 01-23-2020 History of Past i llness Narrative Problem Noted Date Resolved Date PFO (patent foramen ovale) 01/23/202012/25 TIA (transient ischemic attack) 01/16/2019 03/10/2019 documented as of this encounter (statuses as of 12/25/2022) [facility]2020 History of Past illness Narrative* Problem Noted Date Resolved Date PFO (patent foramen ovale) 01/23/202012/25 TIA (transient ischemic attack) 01/16/2019 03/10/2019 documented as of this encounter (statuses as of 12/28/2022) [facility]2020 History of Past illness Narrative* Problem Noted Date Resolved Date PFO (patent foramen ovale) 01/23/202012/25 TIA (transient ischemic attack) 01/16/2019 03/10/2019 documented as of this encounter (statuses as of 12/29/2022) [facility]2020 History of Past illness Narrative* Problem Noted Date Resolved Date PFO (patent foramen ovale) 01/23/202012/25 TIA (transient ischemic attack) 01/16/2019 03/10/2019 documented as of this encounter (statuses as of 01/01/2023) [address]20-2020 History of Past illness Narrative* Problem Noted Date Resolved Date PFO (patent foramen ovale) 01/23/202012/25 TIA (transient ischemic attack) 01/16/2019 03/10/2019 documented as of this encounter (statuses as of 01/03/2023) [address]20-2020 History of Past illness Narrative* Problem Noted Date Resolved Date PFO (patent foramen ovale) 01/23/202012/25 TIA (transient ischemic attack) 01/16/2019 03/10/2019 documented as of this encounter (statuses as of 01/09/2023) [address]20-2020 History of Past illness Narrative* Problem Noted Date Resolved Date PFO (patent foramen ovale) 01/23/202012/25 TIA (transient ischemic attack) 01/16/2019 03/10/2019 documented as of this encounter (statuses as of 01/29/2023) [address]20-2020 History of Past illness Narrative* Problem Noted Date Resolved Date PFO (patent foramen ovale) 01/23/202012/25 TIA (transient ischemic attack) 01/16/2019 03/10/2019 documented as of this encounter (statuses as of 01/29/2023) [address]20-2020 History of Past illness Narrative* Problem Noted Date Resolved Date PFO (patent foramen ovale) 01/23/202012/25 TIA (transient ischemic attack) 01/16/2019 03/10/2019 documented as of this encounter (statuses as of 01/31/2023) [address]20-2020 History of Past illness Narrative* Problem Noted Date Resolved Date PFO (patent foramen ovale) 01/23/202012/25 TIA (transient ischemic attack) 01/16/2019 03/10/2019 documented as of this encounter (statuses as of 02/01/2023) [address]20-2020 History of Past illness Narrative* Problem Noted Date Resolved Date PFO (patent foramen ovale) 01/23/202012/25 TIA (transient ischemic attack) 01/16/2019 03/10/2019 documented as of this encounter (statuses as of 02/06/2023) [address]20-2020 History of Past illness Narrative* Problem Noted Date Resolved Date PFO (patent foramen ovale) 01/23/202012/25 TIA (transient ischemic attack) 01/16/2019 03/10/2019 documented as of this encounter (statuses as of 02/16/2023) [address]20-2020 History of Past illness Narrative* Problem Noted Date Resolved Date PFO (patent foramen ovale) 01/23/202012/25 TIA (transient ischemic attack) 01/16/2019 03/10/2019 documented as of this encounter (statuses as of 02/16/2023) [address]20-2020 History of Past illness Narrative* Problem Noted Date Resolved Date PFO (patent foramen ovale) 01/23/202012/25 TIA (transient ischemic attack) 01/16/2019 03/10/2019 documented as of this encounter (statuses as of 02/19/2023) [address]20-2020 History of Past illness Narrative* Problem Noted Date Resolved Date PFO (patent foramen ovale) 01/23/202012/25 TIA (transient ischemic attack) 01/16/2019 03/10/2019 documented as of this encounter (statuses as of 03/06/2023) [address]20-2020 History of Past illness Narrative* Problem Noted Date Resolved Date PFO (patent foramen ovale) 01/23/202012/25 TIA (transient ischemic attack) 01/16/2019 03/10/2019 documented as of this encounter (statuses as of 03/27/2023) [address]20-2020 History of Past illness Narrative* Problem Noted Date Resolved Date PFO (patent foramen ovale) 01/23/202012/25 TIA (transient ischemic attack) 01/16/2019 03/10/2019 documented as of this encounter (statuses as of 04/10/2023) [address]20-2020 History of Past illness Narrative* Problem Noted Date Diagnosed Date Resolved Date PFO (patent foramen ovale) 01/23/2020 0 12/25/2022 TIA (transient ischemic attack) 01/16/2019 03/10/2019 documented as of this encounter (statuses as of 01/02/2024) [address]20-2020 History of Past illness Narrative* Problem Noted Date Diagnosed Date Resolved Date PFO (patent foramen ovale) 01/23/2020 0 12/25/2022 TIA (transient ischemic attack) 01/16/2019 03/10/2019 documented as of this encounter (statuses as of 01/04/2024) [address]20-2020 History of Past illness Narrative* Problem Noted Date Diagnosed Date Resolved Date PFO (patent foramen ovale) 01/23/2020 0 12/25/2022 TIA (transient ischemic attack) 01/16/2019 03/10/2019 documented as of this encounter (statuses as of 01/06/2024) [address]20-2020 History of Past illness Narrative* Problem Noted Date Diagnosed Date Resolved Date PFO (patent foramen ovale) 01/23/2020 0 12/25/2022 TIA (transient ischemic attack) 01/16/2019 03/10/2019 documented as of this encounter (statuses as of 01/10/2024) [address]20-2020 History of Past illness Narrative* Problem Noted Date Diagnosed Date Resolved Date PFO (patent foramen ovale) 01/23/2020 0 12/25/2022 TIA (transient ischemic attack) 01/16/2019 03/10/2019 documented as of this encounter (statuses as of 01/10/2024) [address]14-2019 History of Past illness Narrative* Problem Noted Date Resolved Date TIA (transient ischemic attack) 01/16/2019 03/10/2019 documented as of this encounter (statuses as of 02/18/2022) [address]14-2019 History of Past illness Narrative* Problem Noted Date Resolved Date TIA (transient ischemic attack) 01/16/2019 03/10/2019 documented as of this encounter (statuses as of 03/01/2022) [address]14-2019 History of Past illness Narrative* Problem Noted Date Resolved Date TIA (transient ischemic attack) 01/16/2019 03/10/2019 documented as of this encounter (statuses as of 03/03/2022) [address]14-2019 History of Past illness Narrative* Problem Noted Date Resolved Date TIA (transient ischemic attack) 01/16/2019 03/10/2019 documented as of this encounter (statuses as of 03/14/2022) [address]14-2019 History of Past illness Narrative* Problem Noted Date Resolved Date TIA (transient ischemic attack) 01/16/2019 03/10/2019 documented as of this encounter (statuses as of 03/16/2022) [address]14-2019 History of Past illness Narrative* Problem Noted Date Resolved Date TIA (transient ischemic attack) 01/16/2019 03/10/2019 documented as of this encounter (statuses as of 04/04/2022) [address]14-2019 History of Past illness Narrative* Problem Noted Date Resolved Date TIA (transient ischemic attack) 01/16/2019 03/10/2019 documented as of this encounter (statuses as of 05/08/2022) [address]14-2019 History of Past illness Narrative* Problem Noted Date Resolved Date TIA (transient ischemic attack) 01/16/2019 03/10/2019 documented as of this encounter (statuses as of 06/14/2022) [address]14-2019 History of Past illness Narrative* Problem Noted Date Resolved Date TIA (transient ischemic attack) 01/16/2019 03/10/2019 documented as of this encounter (statuses as of 06/16/2022) [address]14-2019 History of Past illness Narrative* Problem Noted Date Resolved Date TIA (transient ischemic attack) 01/16/2019 03/10/2019 documented as of this encounter (statuses as of 07/03/2022) [address]14-2019 History of Past illness Narrative* Problem Noted Date Resolved Date TIA (transient ischemic attack) 01/16/2019 03/10/2019 documented as of this encounter (statuses as of 07/12/2022) [address]14-2019 History of Past illness Narrative* Problem Noted Date Resolved Date TIA (transient ischemic attack) 01/16/2019 03/10/2019 documented as of this encounter (statuses as of 07/17/2022) [address]14-2019 History of Past illness Narrative* Problem Noted Date Resolved Date TIA (transient ischemic attack) 01/16/2019 03/10/2019 documented as of this encounter (statuses as of 07/21/2022) [address]14-2019 History of Past illness Narrative* Problem Noted Date Resolved Date TIA (transient ischemic attack) 01/16/2019 03/10/2019 documented as of this encounter (statuses as of 08/03/2022) [address]14-2019 History of Past illness Narrative* Problem Noted Date Resolved Date TIA (transient ischemic attack) 01/16/2019 03/10/2019 documented as of this encounter (statuses as of 08/12/2022) [address]14-2019 History of Past illness Narrative* Problem Noted Date Resolved Date TIA (transient ischemic attack) 01/16/2019 03/10/2019 documented as of this encounter (statuses as of 08/29/2022) [address]14-2019 History of Past illness Narrative* Problem Noted Date Resolved Date TIA (transient ischemic attack) 01/16/2019 03/10/2019 documented as of this encounter (statuses as of 09/06/2022) [address]14-2019 History of Past illness Narrative* Problem Noted Date Resolved Date TIA (transient ischemic attack) 01/16/2019 03/10/2019 documented as of this encounter (statuses as of 09/09/2022) [address]14-2019 History of Past illness Narrative* Problem Noted Date Resolved Date TIA (transient ischemic attack) 01/16/2019 03/10/2019 documented as of this encounter (statuses as of 09/29/2022) [address]14-2019 History of Past illness Narrative* Problem Noted Date Resolved Date TIA (transient ischemic attack) 01/16/2019 03/10/2019 documented as of this encounter (statuses as of 10/23/2022) [address]14-2019 History of Past illness Narrative* Problem Noted Date Resolved Date TIA (transient ischemic attack) 01/16/2019 03/10/2019 documented as of this encounter (statuses as of 10/24/2022) [address]14-2019 History of Past illness Narrative* Problem Noted Date Resolved Date TIA (transient ischemic attack) 01/16/2019 03/10/2019 documented as of this encounter (statuses as of 11/05/2022) [address]14-2019 History of Past illness Narrative* Problem Noted Date Resolved Date TIA (transient ischemic attack) 01/16/2019 03/10/2019 documented as of this encounter (statuses as of 11/13/2022) [address]14-2019 History of Past illness Narrative* Problem Noted Date Resolved Date TIA (transient ischemic attack) 01/16/2019 03/10/2019 documented as of this encounter (statuses as of 11/15/2022) [address]14-2019 History of Past illness Narrative* Problem Noted Date Resolved Date TIA (transient ischemic attack) 01/16/2019 03/10/2019 documented as of this encounter (statuses as of 11/19/2022) [address]14-2019 History of Past illness Narrative* Problem Noted Date Resolved Date TIA (transient ischemic attack) 01/16/2019 03/10/2019 documented as of this encounter (statuses as of 11/20/2022) [address]14-2019 History of Past illness Narrative* Problem Noted Date Resolved Date TIA (transient ischemic attack) 01/16/2019 03/10/2019 documented as of this encounter (statuses as of 11/28/2022) [address]14-2019 History of Past illness Narrative* Problem Noted Date Resolved Date TIA (transient ischemic attack) 01/16/2019 03/10/2019 documented as of this encounter (statuses as of 12/10/2022) [address]14-2019 History of Past illness Narrative* Problem Noted Date Resolved Date TIA (transient ischemic attack) 01/16/2019 03/10/2019 documented as of this encounter (statuses as of 12/15/2022) [address]14-2019 History of Past illness Narrative* Problem Noted Date Resolved Date TIA (transient ischemic attack) 01/16/2019 03/10/2019 documented as of this encounter (statuses as of 12/22/2022) [facility] Diagnosis Dermatitis- Primary Contact dermatitis and other eczema, due to unspecified cause Chronic right shoulder pain Pain in joint, [facility] Cryptogenic stroke (HCC) Unspecified cerebral artery occlusion with cerebral infarction [facility] Diagnosis Pre-operative cardiovascular examination- Primary Essential hypertension Unspecified essential hypertension Mixed hyperlipidemia PFO (patent foramen ovale) Ostium secundum type atrial septal defect Cerebrovascular accident (CVA), unspecified mechanism (HCC) [facility] Diagnosis Cryptogenic stroke (HCC) Unspecified cerebral artery occlusion with cerebral infarction [facility]* Diagnosis Encounter for screening mammogram for breast cancer documented [facility] Diagnosis History of stroke- Primary Transient ischemic attack (TIA), and cerebral infarction without residual deficits Essential hypertension Unspecified essential hypertension PFO (patent foramen ovale) Ostium secundum type atrial septal defect Mixed hyperlipidemia [facility]* Diagnosis Diabetes mellitus (HCC) Type II or unspecified type diabetes mellitus without mention of complication, not stated as uncontrolled Acquired hypothyroidism Unspecified hypothyroidism [facility] Diagnosis Cryptogenic stroke (HCC)- Primary Unspecified cerebral artery occlusion with cerebral infarction [facility]* Diagnosis Homonymous hemianopsia, left- Primary Occipital stroke (HCC) Unspecified cerebral artery occlusion with cerebral infarction Type 2 diabetes mellitus without retinopathy (HCC) Type II or unspecified type diabetes mellitus without mention of complication, not stated as uncontrolled Presbyopia [facility]* Diagnosis Essential hypertension- Primary Unspecified essential hypertension Type 2 diabetes mellitus without complication, without long-term current use of insulin (HCC) documented in this encounter [facility] note* Diagnosis PFO (patent foramen ovale)- Primary Ostium secundum type atrial septal defect Primary hypertension Unspecified essential hypertension Mixed hyperlipidemia 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, unspecified blood vessel laterality (HCC) documented in this encounter [facility] note* Diagnosis Primary hypertension- Primary Unspecified essential hypertension documented in this encounter [facility] note* Diagnosis Cryptogenic stroke (HCC)- Primary Unspecified cerebral artery occlusion with cerebral infarction [facility]* Diagnosis Suspected COVID-19 virus infection- Primary Acute maxillary sinusitis, recurrence not specified documented in this encounter [facility] note* Diagnosis Cryptogenic stroke (HCC)- Primary Unspecified cerebral artery occlusion with cerebral infarction documented in this encounter [facility] noteNo assessment information availableWMercy Health [facility] Work Phone: Evaluation note* Diagnosis Type 2 diabetes mellitus without complication, without long-term current use of insulin (HCC) [facility] Diagnosis Cryptogenic stroke (HCC)- Primary Unspecified cerebral artery occlusion with cerebral infarction [facility]* Diagnosis PFO (patent foramen ovale)- Primary Ostium secundum type atrial septal defect Primary hypertension Unspecified essential hypertension Hypertension, unspecified type PFO (patent foramen ovale) Ostium secundum type atrial septal defect [facility]* Diagnosis Essential hypertension- Primary Unspecified essential [...] defect [facility]* Diagnosis Cryptogenic stroke (HCC)- Primary Unspecified cerebral artery occlusion with cerebral infarction PFO (patent foramen ovale) Ostium secundum type atrial septal defect [facility] Diagnosis Primary hypertension- Primary Unspecified essential hypertension Mixed hyperlipidemia Recurrent cerebrovascular accidents (CVAs) (HCC) [facility]* Diagnosis Cryptogenic stroke (HCC)- Primary Unspecified cerebral artery occlusion with cerebral infarction [facility] Diagnosis Pain in right hip- Primary Pain in joint, pelvic region and thigh [facility] Diagnosis Primary osteoarthritis of right hip- Primary Primary localized osteoarthrosis, pelvic region and thigh Sacroiliitis (HCC) Sacroiliitis, not elsewhere classified Leg length discrepancy Unequal leg length (acquired) [facility] Diagnosis Leg length discrepancy- Primary Unequal leg length (acquired) [facility] Diagnosis PFO (patent foramen ovale)- Primary Ostium secundum type atrial septal defect [facility]* Diagnosis Leg length discrepancy- Primary Unequal leg length (acquired) [facility]* Diagnosis Essential hypertension Unspecified essential hypertension [facility]* Diagnosis NO SHOW- Primary [facility]* Diagnosis Cerebrovascular accident (CVA) due to [...] specified viral diseases [facility]* Diagnosis Encounter for screening mammogram for breast cancer [facility]* Diagnosis Type 2 diabetes mellitus without retinopathy (HCC)- Primary Type II or unspecified type diabetes mellitus without mention of complication, not stated as uncontrolled Homonymous hemianopsia, left [facility]* Diagnosis Low vision right eye category 1, low vision left eye category 1- Primary Homonymous hemianopsia, left Occipital stroke (HCC) Unspecified cerebral artery occlusion with cerebral infarction Presbyopia [facility]* Diagnosis Essential hypertension Unspecified essential hypertension 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, unspecified blood vessel laterality (HCC) [facility]* Diagnosis Type 2 diabetes mellitus without complication, without long-term current use of insulin (HCC) Essential hypertension Unspecified essential hypertension [facility]* Diagnosis History of CVA (cerebrovascular accident)- Primary Transient ischemic attack (TIA), and cerebral infarction without residual deficits Primary hypertension Unspecified essential hypertension Mixed hyperlipidemia [facility]* Diagnosis Essential hypertension Unspecified essential hypertension [facility]* Diagnosis Essential hypertension Unspecified essential hypertension [facility] Diagnosis Acute cough- Primary URI, acute Acute upper respiratory infections of unspecified site Acute cough [facility]* Diagnosis Acute cough [facility]* Diagnosis Type 2 diabetes mellitus without complication, without long-term current use of insulin (HCC)- Primary Mixed hyperlipidemia [facility]* Diagnosis Diabetes mellitus (HCC) Type II or unspecified type diabetes mellitus without mention of complication, not stated as uncontrolled [facility]* Diagnosis Type 2 diabetes mellitus without [...] malignant neoplasms, colon [facility]* Diagnosis Chronic idiopathic urticaria- Primary Idiopathic urticaria Angioedema, initial encounter Adverse food reaction, initial encounter [facility]* Diagnosis Essential hypertension Unspecified essential hypertension [facility]* Diagnosis 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, unspecified blood vessel laterality (HCC) [facility]* Diagnosis PFO (patent foramen ovale) (HCC)- Primary Ostium secundum type atrial septal defect Essential (primary) hypertension Unspecified essential hypertension Mixed hyperlipidemia [facility]* Diagnosis History of loop recorder- Primary [facility] Diagnosis Positive fecal occult blood test Nonspecific abnormal finding in stool contents [facility]* Diagnosis Chronic idiopathic urticaria- Primary Idiopathic urticaria Angioedema, subsequent encounter Cracked lips Diseases of lips Adverse reaction to food, subsequent encounter [facility] Diagnosis ETD (Eustachian tube dysfunction), left- Primary Pre-op evaluation Preoperative examination, unspecified Type 2 diabetes mellitus without complication, without long-term current use of insulin (HCC) [facility]* Diagnosis Essential hypertension Unspecified essential hypertension 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, unspecified blood vessel laterality (HCC) Type 2 diabetes mellitus without complication, without long-term current use of insulin (HCC) Acquired hypothyroidism Unspecified hypothyroidism documented in this encounter [facility]* Diagnosis Type 2 diabetes mellitus without retinopathy (HCC)- Primary Type II or unspecified type diabetes mellitus without mention of complication, not stated as uncontrolled Homonymous hemianopsia, left documented in this encounter [facility] note* Diagnosis Other allergic contact dermatitis- Primary Contact dermatitis and other eczema due to other specified agent Cracked lips Diseases of lips documented in this encounter [facility] note* Diagnosis 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 and body mass index (BMI) of 34.0 to 34.9 in adult- Primary documented in this encounter [facility] note* Diagnosis Essential hypertension Unspecified essential hypertension documented in this encounter [facility] note* Diagnosis Right-sided chest pain- Primary Right-sided chest pain documented in this encounter [facility] note* Diagnosis Right-sided chest pain documented in this encounter [facility] for referral (narrative)* Diagnostic Procedure Only (Routine) - Pending Review Specialty Diagnoses / Procedures Referred By Tushar burciaga Referred To Contact [facility] Diagnoses Encounter for screening mammogram for breast cancer Procedures THAD SCREENING W CAMILLA SCREENING DIGITAL BREAST TOMOSYNTHESIS BI SCREENING MAMMOGRAPHY BI 2-VIEW BREAST INC Isabel Sanders MD [address] [place] [address] [place] [address] [facility] [address] [place] [id number] Referral ID Status Reason Start Date Expiration Date Visits Requested Visits Authorized [id number] Pending Review Auto-Generat ed Referral 05/03/2022 06/02/2023 1 1 [facility] for referral (narrative)* Outpatient Procedure (Routine) - Pending Review Specialty Diagnoses / Procedures Referred By Tushar burciaga Referred To [facility] Diagnoses Primary hypertension Procedures ECHO ECHO TTHRC R-T 2D W/WOM-MODE COMPL SPEC&COLR D Fifi Calderón MD [address] [place] [address] [place] [id number] Referral ID Status Reason Start Date Expiration Date Visits Requested Visits Authorized [id number] Pending Review Auto-Generat ed Referral 08/02/2022 08/02/2023 1 1 * Outpatient Procedure (Routine) - Authorized Specialty Diagnoses / Procedures Referred By Contac t Referred To Contact [facility] Diagnoses Primary hypertension Procedures ECG COMPLETE ECG ROUTINE ECG W/LEAST 12 LDS W/I&R Fif[place] [address] [place], [place] [id number] [place] [id number] Referral ID Status Reason Start Date Expiration Date Visits Requested Visits Authorized [id number] Authorized Auto-Generat ed Referral 08/02/2022 08/02/2023 1 1 [facility] for referral (narrative)* Outpatient Procedure (Routine) - Pending Review Specialty Diagnoses / Procedures Referred By Contac t Referred To [facility] Diagnoses PFO (patent foramen ovale) Primary hypertension Hypertension, unspecified type Procedures ECHO ECHO TTHRC R-T 2D W/WOM-MODE COMPL SPEC&COLR Fifi Graves MD [address] [place] [id number] [place] [id number] Referral ID Status Reason Start Date Expiration Date Visits Requested Visits Authorized [id number] Pending Review Auto-Generat ed Referral 11/19/2022 11/19/2023 1 1 * Outpatient Procedure (Routine) - Authorized Specialty Diagnoses / Procedures Referred By Contac t Referred To [facility] Diagnoses PFO (patent foramen ovale) Primary hypertension Hypertension, unspecified type Procedures ECG COMPLETE ECG ROUTINE ECG W/LEAST 12 LDS W/I&R Fifi Calderón MD [address] [place] [address] [facility] [address] [place] [address] Referral ID Status Reason Start Date Expiration Date Visits Requested Visits Authorized [id number] Authorized Auto-Generat ed Referral 11/19/2022 11/19/2023 1 1 [facility] for referral (narrative)* Diagnostic Procedure Only (Routine) - Closed Specialty Diagnoses / Procedures Referred By Tushar burciaga Referred To Contact [facility] Diagnoses Pain in right hip Procedures XR HIP GENERAL 3V PELV/AP/LAT RIGHT RADEX HIP UNILATERAL WITH PELVIS 2-3 VIEWS Brianda Decker PA-C [address] [place] [id number] [facility] Referral ID Status Reason Start Date Expiration Date V isits Requested Visits Authorized [id number] Closed Auto-Generate d Referral 01/29/2023 02/28/2024 1 1 [facility] for referral (narrative)* Diagnostic Procedure Only (Routine) - Pending Review Specialty Diagnoses / Procedures Referred By Tushar burciaga Referred To Contact [facility] Diagnoses Encounter for screening mammogram for breast cancer Procedures THAD SCREENING SCREENING MAMMOGRAPHY BI 2-VIEW BREAST INC CAD Isabel Davenport MD [address] [place] [address] [facility] [address] [place] [address] Referral ID Status Reason Start Date Expiration Date Visits Requested Visits Authorized [id number] Pending Review Auto-Generat ed Referral 01/08/2024 02/06/2025 1 1 [facility]No reason for referral information [facility]er[facility] Work Phone: Reason for visit Narrative* Diagnostic Procedure Only (Routine) - Closed Specialty Diagnoses / Procedures Referred By Tushar burciaga Referred To Contact [facility] Diagnoses Encounter for screening mammogram for breast cancer Procedures THAD SCREENING SCREENING MAMMOGRAPHY BI 2-VIEW BREAST INC Isabel Sanders MD [address] [place] [address] [facility] [address] [place] [address] Referral ID Status Reason Start Date Expiration Date V isits Requested Visits Authorized [id number] Closed Auto-Generate d Referral 01/08/2024 02/06/2025 1 1 [facility] for visit Narrative* Outpatient Procedure (Routine) - Closed Specialty Diagnoses / Procedures Referred By Tushar burciaga Referred To Contact [facility] Diagnoses Positive fecal occult blood test Procedures COLONOSCOPY DIAGNOSTIC COLONOSCOPY FLX DX W/COLLJ SPEC WHEN PFVadim Atwood, RETAIL BUSINESS ANALYST.APPLICATION INFRASTRUCTURE ENGINEER [address] [place] [address] Phone: tel: fax: [facility] [address] [place] [address] Referral ID Status Reason Start Date Expiration Date V isits Requested Visits Authorized [id number] Closed Auto-Generate d Referral 02/23/2025 11/04/2025 1 1 [facility] Diagnostic Procedure Only (Urgent) - Closed Specialty Diagnoses / Procedures Referred By Tushar burciaga Referred To Contact [facility] Diagnoses Right-sided chest pain Procedures XR RIBS/CHEST 3V AP RIB/OBLS/CXR RIGHT RADEX RIBS UNI W/POSTEROANT CH MINIMUM 3 VIEWS Rivera Gandhi, RETAIL BUSINESS ANALYST.APPLICATION INFRASTRUCTURE ENGINEER [address] [place] [address] Phone: tel: fax: [place] [address] Referral ID Status Reason Start Date Expiration Date V isits Requested Visits Authorized [id number] Closed Auto-Generate d Referral 07/16/2025 08/15/2026 1 1 [facility] Summary Purpose Family History No Family History Records FoundNo Family History Records FoundNo Family History Records FoundNo Family History Records FoundNo Family History Records FoundNo Family History Records FoundNo Family History Records Found Advance Directives No Advanced Directives Records FoundDocuments on File Type Date Recorded 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 Specialist 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 Advance Directive(s) 08/15/2019 8:36 AM Advance Directive(s) 01/16/2019 6:26 PM Documents on File Type Date Recorded 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 Specialist 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 Advance Directive(s) 08/15/2019 8:36 AM Advance Directive(s) 01/16/2019 6:26 PM Advance Directive Response Recorded Date/ Time Living Will No October 22 8:53pm Power of Cashier Courtesy Booth No October 22, 2022 8:53pm Reason for Referral Specialty Diagnoses / Procedures Referred By Contac t Referred To Contact Cardiology Diagnoses PFO (patent foramen ovale) Procedures CONSULT TO CARDIOLOGY OFFICE/OUTPATIENT [facility] 60-74 MINUTES Merari Camarillo MD [address] [place] [address] Referral ID Status Reason Start Date Expiration Date Visits Requested Visits Authorized [id number] Authorized PCP Requested Referral 06/14/2022 06/14/2023 1 1 Specialty Diagnoses / Procedures Referred By Contac t Referred To Contact [facility] Diagnoses Leg length discrepancy Procedures CONSULT TO PHYSICAL THERAPY PHYSICAL THERAPY EVALUATION HIGH COMPLEX 45 MINS Isabel Davenport MD [address] [place] [address] [facility] [address] [address] Referral ID Status Reason Start Date Expiration Date Visits Requested Visits Authorized [id number] Pending Review Auto-Generat ed Referral 11/20/2022 11/20/2023 1 1 Specialty Diagnoses / Procedures Referred By Contac t Referred To Contact Hematology Diagnoses Recurrent cerebrovascular accidents (CVAs) (HCC) Procedures CONSULT TO HEMATOLOGY OFFICE/OUTPATIENT [facility] 60-74 MINUTES Merari Camarillo MD [address], [address] [place] [address] Referral ID Status Reason Start Date Expiration Date Visits Requested Visits Authorized [id number] Authorized PCP Requested Referral 12/25/2022 12/25/2023 1 1 Specialty Diagnoses / Procedures Referred By Contac t Referred To Contact [facility] Diagnoses Leg length discrepancy Procedures PT REHAB FOLLOW UP ORDER THERAPEUTIC EXERCISES RE, EA 15 MIN. Johny Flores, PT [address] [place] [address] [facility] [address] [place] [address] Referral ID Status Reason Start Date Expiration Date Visits Requested Visits Authorized [id number] Pending Review PCP Requested Referral Auto-Generate d [...] OP. SURGERY 05/19/25 April 20, 2025 7:40am Chief Complaint Admit Date J32.8 chronic sinusitis April 08, 2025 7 :26am PRE OP. SURGERY 05/19/25 April 20, 2025 7:40am PREOP April 20, 2025 7:54 am pre op LABS ONLY/EKG DONE 04/20/25 April 062024 7:15am Additional Source Comments INFORMATION SOURCE (unrecogn ized section and content) DATE CREATED AUTHOR 01/19/2019 [facility] DATE CREATED AUTHOR AUTHOR'S ORGANIZ ATION 02/03/2019 [facility] DATE CREATED AUTHOR AUTHOR'S ORGANIZ ATION 03/07/2019 [facility] DATE CREATED AUTHOR AUTHOR'S ORGANIZ ATION 09/13/2022 [facility] DATE CREATED AUTHOR AUTHOR'S ORGANIZ ATION 05/02/2025 [facility] DATE CREATED AUTHOR AUTHOR'S ORGANIZ ATION 06/20/2025 [facility] DATE CREATED AUTHOR AUTHOR'S ORGANIZ ATION 08/08/2025 [facility] Source Comments (unrecognize d section and content) In the event this informatio n is protected by the Federal Confidentiality of Alcohol and Drug Abuse Patient Records regulations: The Federal rules restrict any use of the information to criminally investigate or prosecute any alcohol or drug abuse patient.[facility] the event this information is protected by the Federal Confidentiality of Alcohol and Drug Abuse Patient Records regulations: The Federal rules restrict any use of the information to criminally investigate or prosecute any alcohol or drug abuse patient.[facility] the event this information is protected by the Federal Confidentiality of Alcohol and Drug Abuse Patient Records regulations: The Federal rules restrict any use of the information to criminally investigate or prosecute any alcohol or drug abuse patient.[facility] the event this information is protected by the Federal Confidentiality of Alcohol and Drug Abuse Patient Records regulations: The Federal rules restrict any use of the information to criminally investigate or prosecute any alcohol or drug abuse patient.[facility] the event this information is protected by the Federal Confidentiality of Alcohol and Drug Abuse Patient Records regulations: The Federal rules restrict any use of the information to criminally investigate or prosecute any alcohol or drug abuse patient.[facility] the event this information is protected by the Federal Confidentiality of Alcohol and Drug Abuse Patient Records regulations: The Federal rules restrict any use of the information to criminally investigate or prosecute any alcohol or drug abuse patient.[facility] the event this information is protected by the Federal Confidentiality of Alcohol and Drug Abuse Patient Records regulations: The Federal rules restrict any use of the information to criminally investigate or prosecute any alcohol or drug abuse patient.[facility]burg[facility] the event this information is protected by the Federal Confidentiality of Alcohol and Drug Abuse Patient Records regulations: The Federal rules restrict any use of the information to criminally investigate or prosecute any alcohol or drug abuse patient.[facility] the event this information is protected by the Federal Confidentiality of Alcohol and Drug Abuse Patient Records regulations: The Federal rules restrict any use of the information to criminally investigate or prosecute any alcohol or drug abuse patient.[facility] the event this information is protected by the Federal Confidentiality of Alcohol and Drug Abuse Patient Records regulations: The Federal rules restrict any use of the information to criminally investigate or prosecute any alcohol or drug abuse patient.[facility] the event this information is protected by the Federal Confidentiality of Alcohol and Drug Abuse Patient Records regulations: The Federal rules restrict any use of the information to criminally investigate or prosecute any alcohol or drug abuse patient.[facility] the event this information is protected by the Federal Confidentiality of Alcohol and Drug Abuse Patient Records regulations: The Federal rules restrict any use of the information to criminally investigate or prosecute any alcohol or drug abuse patient.[facility] the event this information is protected by the Federal Confidentiality of Alcohol and Drug Abuse Patient Records regulations: The Federal rules restrict any use of the information to criminally investigate or prosecute any alcohol or drug abuse patient.[facility] the event this information is protected by the Federal Confidentiality of Alcohol and Drug Abuse Patient Records regulations: The Federal rules restrict any use of the information to criminally investigate or prosecute any alcohol or drug abuse patient.[facility] the event this information is protected by the Federal Confidentiality of Alcohol and Drug Abuse Patient Records regulations: The Federal rules restrict any use of the information to criminally investigate or prosecute any alcohol or drug abuse patient.[facility] the event this information is protected by the Federal Confidentiality of Alcohol and Drug Abuse Patient Records regulations: The Federal rules restrict any use of the information to criminally investigate or prosecute any alcohol or drug abuse patient.[facility] the event this information is protected by the Federal Confidentiality of Alcohol and Drug Abuse Patient Records regulations: The Federal rules restrict any use of the information to criminally investigate or prosecute any alcohol or drug abuse patient.[facility]burg[facility] the event this information is protected by the Federal Confidentiality of Alcohol and Drug Abuse Patient Records regulations: The Federal rules restrict any use of the information to criminally investigate or prosecute any alcohol or drug abuse patient.[facility]burg[facility] the event this information is protected by the Federal Confidentiality of Alcohol and Drug Abuse Patient Records regulations: The Federal rules restrict any use of the information to criminally investigate or prosecute any alcohol or drug abuse patient.[facility]burg[facility] the event this information is protected by the Federal Confidentiality of Alcohol and Drug Abuse Patient Records regulations: The Federal rules restrict any use of the information to criminally investigate or prosecute any alcohol or drug abuse patient.[facility]burg[facility] the event this information is protected by the Federal Confidentiality of Alcohol and Drug Abuse Patient Records regulations: The Federal rules restrict any use of the information to criminally investigate or prosecute any alcohol or drug abuse patient.[facility]burg[facility] the event this information is protected by the Federal Confidentiality of Alcohol and Drug Abuse Patient Records regulations: The Federal rules restrict any use of the information to criminally investigate or prosecute any alcohol or drug abuse patient.[facility]burg[facility] the event this information is protected by the Federal Confidentiality of Alcohol and Drug Abuse Patient Records regulations: The Federal rules restrict any use of the information to criminally investigate or prosecute any alcohol or drug abuse patient.[facility]burg[facility] the event this information is protected by the Federal Confidentiality of Alcohol and Drug Abuse Patient Records regulations: The Federal rules restrict any use of the information to criminally investigate or prosecute any alcohol or drug abuse patient.[facility]burg[facility] the event this information is protected by the Federal Confidentiality of Alcohol and Drug Abuse Patient Records regulations: The Federal rules restrict any use of the information to criminally investigate or prosecute any alcohol or drug abuse patient.[facility] the event this information is protected by the Federal Confidentiality of Alcohol and Drug Abuse Patient Records regulations: The Federal rules restrict any use of the information to criminally investigate or prosecute any alcohol or drug abuse patient.[facility] the event this information is protected by the Federal Confidentiality of Alcohol and Drug Abuse Patient Records regulations: The Federal rules restrict any use of the information to criminally investigate or prosecute any alcohol or drug abuse patient.[facility] the event this information is protected by the Federal Confidentiality of Alcohol and Drug Abuse Patient Records regulations: The Federal rules restrict any use of the information to criminally investigate or prosecute any alcohol or drug abuse patient.[facility]burg[facility] the event this information is protected by the Federal Confidentiality of Alcohol and Drug Abuse Patient Records regulations: The Federal rules restrict any use of the information to criminally investigate or prosecute any alcohol or drug abuse patient.[facility]burg[facility] the event this information is protected by the Federal Confidentiality of Alcohol and Drug Abuse Patient Records regulations: The Federal rules restrict any use of the information to criminally investigate or prosecute any alcohol or drug abuse patient.[facility] the event this information is protected by the Federal Confidentiality of Alcohol and Drug Abuse Patient Records regulations: The Federal rules restrict any use of the information to criminally investigate or prosecute any alcohol or drug abuse patient.[facility] the event this information is protected by the Federal Confidentiality of Alcohol and Drug Abuse Patient Records regulations: The Federal rules restrict any use of the information to criminally investigate or prosecute any alcohol or drug abuse patient.[facility] the event this information is protected by the Federal Confidentiality of Alcohol and Drug Abuse Patient Records regulations: The Federal rules restrict any use of the information to criminally investigate or prosecute any alcohol or drug abuse patient.[facility] the event this information is protected by the Federal Confidentiality of Alcohol and Drug Abuse Patient Records regulations: The Federal rules restrict any use of the information to criminally investigate or prosecute any alcohol or drug abuse patient.[facility] the event this information is protected by the Federal Confidentiality of Alcohol and Drug Abuse Patient Records regulations: The Federal rules restrict any use of the information to criminally investigate or prosecute any alcohol or drug abuse patient.[facility] the event this information is protected by the Federal Confidentiality of Alcohol and Drug Abuse Patient Records regulations: The Federal rules restrict any use of the information to criminally investigate or prosecute any alcohol or drug abuse patient.[facility]burg[facility] the event this information is protected by the Federal Confidentiality of Alcohol and Drug Abuse Patient Records regulations: The Federal rules restrict any use of the information to criminally investigate or prosecute any alcohol or drug abuse patient.[facility]burg[facility] the event this information is protected by the Federal Confidentiality of Alcohol and Drug Abuse Patient Records regulations: The Federal rules restrict any use of the information to criminally investigate or prosecute any alcohol or drug abuse patient.[facility]burg[facility] the event this information is protected by the Federal Confidentiality of Alcohol and Drug Abuse Patient Records regulations: The Federal rules restrict any use of the information to criminally investigate or prosecute any alcohol or drug abuse patient.[facility] the event this information is protected by the Federal Confidentiality of Alcohol and Drug Abuse Patient Records regulations: The Federal rules restrict any use of the information to criminally investigate or prosecute any alcohol or drug abuse patient.[facility]burg[facility] the event this information is protected by the Federal Confidentiality of Alcohol and Drug Abuse Patient Records regulations: The Federal rules restrict any use of the information to criminally investigate or prosecute any alcohol or drug abuse patient.[facility]burg[facility] the event this information is protected by the Federal Confidentiality of Alcohol and Drug Abuse Patient Records regulations: The Federal rules restrict any use of the information to criminally investigate or prosecute any alcohol or drug abuse patient.[facility]burg[facility] the event this information is protected by the Federal Confidentiality of Alcohol and Drug Abuse Patient Records regulations: The Federal rules restrict any use of the information to criminally investigate or prosecute any alcohol or drug abuse patient.[facility] the event this information is protected by the Federal Confidentiality of Alcohol and Drug Abuse Patient Records regulations: The Federal rules restrict any use of the information to criminally investigate or prosecute any alcohol or drug abuse patient.[facility] the event this information is protected by the Federal Confidentiality of Alcohol and Drug Abuse Patient Records regulations: The Federal rules restrict any use of the information to criminally investigate or prosecute any alcohol or drug abuse patient.[facility] the event this information is protected by the Federal Confidentiality of Alcohol and Drug Abuse Patient Records regulations: The Federal rules restrict any use of the information to criminally investigate or prosecute any alcohol or drug abuse patient.[facility] the event this information is protected by the Federal Confidentiality of Alcohol and Drug Abuse Patient Records regulations: The Federal rules restrict any use of the information to criminally investigate or prosecute any alcohol or drug abuse patient.[facility] the event this information is protected by the Federal Confidentiality of Alcohol and Drug Abuse Patient Records regulations: The Federal rules restrict any use of the information to criminally investigate or prosecute any alcohol or drug abuse patient.[facility] the event this information is protected by the Federal Confidentiality of Alcohol and Drug Abuse Patient Records regulations: The Federal rules restrict any use of the information to criminally investigate or prosecute any alcohol or drug abuse patient.[facility]In the event this information is protected by the Federal Confidentiality of Alcohol and Drug Abuse Patient Records regulations: The Federal rules restrict any use of the information to criminally investigate or prosecute any alcohol or drug abuse patient.[facility]In the event this information is protected by the Federal Confidentiality of Alcohol and Drug Abuse Patient Records regulations: The Federal rules restrict any use of the information to criminally investigate or prosecute any alcohol or drug abuse patient.[facility]burgIn the event this information is protected by the Federal Confidentiality of Alcohol and Drug Abuse Patient Records regulations: The Federal rules restrict any use of the information to criminally investigate or prosecute any alcohol or drug abuse patient.[facility]burgIn the event this information is protected by the Federal Confidentiality of Alcohol and Drug Abuse Patient Records regulations: The Federal rules restrict any use of the information to criminally investigate or prosecute any alcohol or drug abuse patient.[facility]burgIn the event this information is protected by the Federal Confidentiality of Alcohol and Drug Abuse Patient Records regulations: The Federal rules restrict any use of the information to criminally investigate or prosecute any alcohol or drug abuse patient.[facility]burgIn the event this information is protected by the Federal Confidentiality of Alcohol and Drug Abuse Patient Records regulations: The Federal rules restrict any use of the information to criminally investigate or prosecute any alcohol or drug abuse patient.[facility]burgIn the event this information is protected by the Federal Confidentiality of Alcohol and Drug Abuse Patient Records regulations: The Federal rules restrict any use of the information to criminally investigate or prosecute any alcohol or drug abuse patient.[facility]burgIn the event this information is protected by the Federal Confidentiality of Alcohol and Drug Abuse Patient Records regulations: The Federal rules restrict any use of the information to criminally investigate or prosecute any alcohol or drug abuse patient.[facility]In the event this information is protected by the Federal Confidentiality of Alcohol and Drug Abuse Patient Records regulations: The Federal rules restrict any use of the information to criminally investigate or prosecute any alcohol or drug abuse patient.[facility]In the event this information is protected by the Federal Confidentiality of Alcohol and Drug Abuse Patient Records regulations: The Federal rules restrict any use of the information to criminally investigate or prosecute any alcohol or drug abuse patient.[facility]In the event this information is protected by the Federal Confidentiality of Alcohol and Drug Abuse Patient Records regulations: The Federal rules restrict any use of the information to criminally investigate or prosecute any alcohol or drug abuse patient.[facility]In the event this information is protected by the Federal Confidentiality of Alcohol and Drug Abuse Patient Records regulations: The Federal rules restrict any use of the information to criminally investigate or prosecute any alcohol or drug abuse patient.[facility]burgIn the event this information is protected by the Federal Confidentiality of Alcohol and Drug Abuse Patient Records regulations: The Federal rules restrict any use of the information to criminally investigate or prosecute any alcohol or drug abuse patient.[facility]burgIn the event this information is protected by the Federal Confidentiality of Alcohol and Drug Abuse Patient Records regulations: The Federal rules restrict any use of the information to criminally investigate or prosecute any alcohol or drug abuse patient.[facility]burgIn the event this information is protected by the Federal Confidentiality of Alcohol and Drug Abuse Patient Records regulations: The Federal rules restrict any use of the information to criminally investigate or prosecute any alcohol or drug abuse patient.[facility]burgIn the event this information is protected by the Federal Confidentiality of Alcohol and Drug Abuse Patient Records regulations: The Federal rules restrict any use of the information to criminally investigate or prosecute any alcohol or drug abuse patient.[facility]In the event this information is protected by the Federal Confidentiality of Alcohol and Drug Abuse Patient Records regulations: The Federal rules restrict any use of the information to criminally investigate or prosecute any alcohol or drug abuse patient.[facility]burgIn the event this information is protected by the Federal Confidentiality of Alcohol and Drug Abuse Patient Records regulations: The Federal rules restrict any use of the information to criminally investigate or prosecute any alcohol or drug abuse patient.[facility]burgIn the event this information is protected by the Federal Confidentiality of Alcohol and Drug Abuse Patient Records regulations: The Federal rules restrict any use of the information to criminally investigate or prosecute any alcohol or drug abuse patient.[facility]burgIn the event this information is protected by the Federal Confidentiality of Alcohol and Drug Abuse Patient Records regulations: The Federal rules restrict any use of the information to criminally investigate or prosecute any alcohol or drug abuse patient.[facility]burgIn the event this information is protected by the Federal Confidentiality of Alcohol and Drug Abuse Patient Records regulations: The Federal rules restrict any use of the information to criminally investigate or prosecute any alcohol or drug abuse patient.[facility]burgIn the event this information is protected by the Federal Confidentiality of Alcohol and Drug Abuse Patient Records regulations: The Federal rules restrict any use of the information to criminally investigate or prosecute any alcohol or drug abuse patient.[facility]burgIn the event this information is protected by the Federal Confidentiality of Alcohol and Drug Abuse Patient Records regulations: The Federal rules restrict any use of the information to criminally investigate or prosecute any alcohol or drug abuse patient.[facility]In the event this information is protected by the Federal Confidentiality of Alcohol and Drug Abuse Patient Records regulations: The Federal rules restrict any use of the information to criminally investigate or prosecute any alcohol or drug abuse patient.[facility]burgIn the event this information is protected by the Federal Confidentiality of Alcohol and Drug Abuse Patient Records regulations: The Federal rules restrict any use of the information to criminally investigate or prosecute any alcohol or drug abuse patient.[facility]burgIn the event this information is protected by the Federal Confidentiality of Alcohol and Drug Abuse Patient Records regulations: The Federal rules restrict any use of the information to criminally investigate or prosecute any alcohol or drug abuse patient.[facility]burgIn the event this information is protected by the Federal Confidentiality of Alcohol and Drug Abuse Patient Records regulations: The Federal rules restrict any use of the information to criminally investigate or prosecute any alcohol or drug abuse patient.[facility]burgIn the event this information is protected by the Federal Confidentiality of Alcohol and Drug Abuse Patient Records regulations: The Federal rules restrict any use of the information to criminally investigate or prosecute any alcohol or drug abuse patient.[facility]burgIn the event this information is protected by the Federal Confidentiality of Alcohol and Drug Abuse Patient Records regulations: The Federal rules restrict any use of the information to criminally investigate or prosecute any alcohol or drug abuse patient.[facility]burgIn the event this information is protected by the Federal Confidentiality of Alcohol and Drug Abuse Patient Records regulations: The Federal rules restrict any use of the information to criminally investigate or prosecute any alcohol or drug abuse patient.[facility]In the event this information is protected by the Federal Confidentiality of Alcohol and Drug Abuse Patient Records regulations: The Federal rules restrict any use of the information to criminally investigate or prosecute any alcohol or drug abuse patient.[facility]burgIn the event this information is protected by the Federal Confidentiality of Alcohol and Drug Abuse Patient Records regulations: The Federal rules restrict any use of the information to criminally investigate or prosecute any alcohol or drug abuse patient.[facility]burgIn the event this information is protected by the Federal Confidentiality of Alcohol and Drug Abuse Patient Records regulations: The Federal rules restrict any use of the information to criminally investigate or prosecute any alcohol or drug abuse patient.[facility]In the event this information is protected by the Federal Confidentiality of Alcohol and Drug Abuse Patient Records regulations: The Federal rules restrict any use of the information to criminally investigate or prosecute any alcohol or drug abuse patient.[facility]burgIn the event this information is protected by the Federal Confidentiality of Alcohol and Drug Abuse Patient Records regulations: The Federal rules restrict any use of the information to criminally investigate or prosecute any alcohol or drug abuse patient.[facility]In the event this information is protected by the Federal Confidentiality of Alcohol and Drug Abuse Patient Records regulations: The Federal rules restrict any use of the information to criminally investigate or prosecute any alcohol or drug abuse patient.[facility]burgIn the event this information is protected by the Federal Confidentiality of Alcohol and Drug Abuse Patient Records regulations: The Federal rules restrict any use of the information to criminally investigate or prosecute any alcohol or drug abuse patient.[facility]burgIn the event this information is protected by the Federal Confidentiality of Alcohol and Drug Abuse Patient Records regulations: The Federal rules restrict any use of the information to criminally investigate or prosecute any alcohol or drug abuse patient.[facility]burgIn the event this information is protected by the Federal Confidentiality of Alcohol and Drug Abuse Patient Records regulations: The Federal rules restrict any use of the information to criminally investigate or prosecute any alcohol or drug abuse patient.[facility]burgIn the event this information is protected by the Federal Confidentiality of Alcohol and Drug Abuse Patient Records regulations: The Federal rules restrict any use of the information to criminally investigate or prosecute any alcohol or drug abuse patient.[facility]burgIn the event this information is protected by the Federal Confidentiality of Alcohol and Drug Abuse Patient Records regulations: The Federal rules restrict any use of the information to criminally investigate or prosecute any alcohol or drug abuse patient.[facility]burgIn the event this information is protected by the Federal Confidentiality of Alcohol and Drug Abuse Patient Records regulations: The Federal rules restrict any use of the information to criminally investigate or prosecute any alcohol or drug abuse patient.[facility]In the event this information is protected by the Federal Confidentiality of Alcohol and Drug Abuse Patient Records regulations: The Federal rules restrict any use of the information to criminally investigate or prosecute any alcohol or drug abuse patient.[facility]In the event this information is protected by the Federal Confidentiality of Alcohol and Drug Abuse Patient Records regulations: The Federal rules restrict any use of the information to criminally investigate or prosecute any alcohol or drug abuse patient.[facility]In the event this information is protected by the Federal Confidentiality of Alcohol and Drug Abuse Patient Records regulations: The Federal rules restrict any use of the information to criminally investigate or prosecute any alcohol or drug abuse patient.[facility]burgIn the event this information is protected by the Federal Confidentiality of Alcohol and Drug Abuse Patient Records regulations: The Federal rules restrict any use of the information to criminally investigate or prosecute any alcohol or drug abuse patient.[facility]burgIn the event this information is protected by the Federal Confidentiality of Alcohol and Drug Abuse Patient Records regulations: The Federal rules restrict any use of the information to criminally investigate or prosecute any alcohol or drug abuse patient.[facility]In the event this information is protected by the Federal Confidentiality of Alcohol and Drug Abuse Patient Records regulations: The Federal rules restrict any use of the information to criminally investigate or prosecute any alcohol or drug abuse patient.[facility]In the event this information is protected by the Federal Confidentiality of Alcohol and Drug Abuse Patient Records regulations: The Federal rules restrict any use of the information to criminally investigate or prosecute any alcohol or drug abuse patient.[facility]In the event this information is protected by the Federal Confidentiality of Alcohol and Drug Abuse Patient Records regulations: The Federal rules restrict any use of the information to criminally investigate or prosecute any alcohol or drug abuse patient.[facility]In the event this information is protected by the Federal Confidentiality of Alcohol and Drug Abuse Patient Records regulations: The Federal rules restrict any use of the information to criminally investigate or prosecute any alcohol or drug abuse patient.[facility]In the event this information is protected by the Federal Confidentiality of Alcohol and Drug Abuse Patient Records regulations: The Federal rules restrict any use of the information to criminally investigate or prosecute any alcohol or drug abuse patient.[facility]In the event this information is protected by the Federal Confidentiality of Alcohol and Drug Abuse Patient Records regulations: The Federal rules restrict any use of the information to criminally investigate or prosecute any alcohol or drug abuse patient.[facility]In the event this information is protected by the Federal Confidentiality of Alcohol and Drug Abuse Patient Records regulations: The Federal rules restrict any use of the information to criminally investigate or prosecute any alcohol or drug abuse patient.[facility]In the event this information is protected by the Federal Confidentiality of Alcohol and Drug Abuse Patient Records regulations: The Federal rules restrict any use of the information to criminally investigate or prosecute any alcohol or drug abuse patient.[facility] Reason for Visit (unrecogniz ed section and [...] ORTH Toan Cortez MD [address] [place] [id number] Johny Flores PT [address] [place] [address] Referral ID Status Reason Start Date Expiration Date V isits Requested Visits Authorized [id number] Authorized 11/05/2022 11/04/2023 30 30 Reason Comments PT Progress Note Specialty Diagnoses / Procedures Referred By Contac t Referred To Contact Physical Therapy / PHYSICAL THERAPY Diagnoses Leg length discrepancy [M21.70] Procedures NEW RS PT ORTH Toan Cortez MD [address] [place] [address] Johny Flores, PT [address] [place] [address] Reason Comments Received Outside Medical Records [facility] Emergency Department Summary 03/25/2023 Reason Onset [...] Comments Results COVID+ Reason Comments 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 Harper Reason Comments Hives Possible hives to li ps Reason Comments Received Outside Medical Records [employer] Certification of Health Care provider for employees serious health condition 02/03/2025 Reason Comments Cardiology Follow Up Follow up 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 Reason Comments Preparations For Procedures Reason Comments Appointment Reason Comments Patient Update Reason Comments Received Outside Medical Records [facility] jr ging Reason Comments Received Outside Medical Records [facility] EKG Reason Comments Hives Follow Up Reason Comments Pre-Op Exam Dr Gonzalez ENT left ear Reason Comments Received Outside Medical Records [facility] Copy of labs ordered by Dr Melissa 04/24/2025 Reason Onset Date Comments Refill Request 05/08/2025 Reason Comments Diabetic Eye Exam Reason Comments Derm Problem Specialty Diagnoses / Procedures Referred By Contac t Referred To Contact Dermatology Diagnoses Cracked lips Procedures CONSULT TO DERMATOLOGY OFFICE/OUTPATIENT [facility] [address] [place] [address] [place] [address] Phone: tel: fax: Referral ID Status Reason Start Date Expiration Date V isits Requested Visits Authorized [id number] Closed PCP Requested Referral 04/21/2025 04/21/2026 1 1 Reason Comments Fall Fell down stairs las t week and was starting to feel better and then has had increased pain since trying to return to normal daily living pain on R side ant and post Care Teams (unrecognized sec tion and content) Student Teacher Relationship Specialty Start Date End Date Isabel Davenport MD [address] [place] [address] PCP - General Family Practice 10/25/10 Merari Camarillo MD [address] [facility] [place] [address] [place], [place] [id number] Cardiology 03/10/19 Cortez Forrester Jr., MD [address] [facility] [address] [place] [phone] Neurology 03/10/19 Antonio Christina OD [address] [place] [address] Optometry 03/10/19 Student Teacher Relationship Specialty Start Date End Date Isabel Davenport MD [address] [place] [address] PCP - General Family Practice 10/25/10 Merari Camarillo MD [address] [place] [address] [place] [address] Cardiology 03/10/19 Cortez Forrester Jr., MD [address] [facility] [address] [place] [phone] Neurology 03/10/19 [facility] [place], [address] [place] [address] Optometry 03/10/19 Student Teacher Relationship Specialty Start Date End Date Isabel Davenport MD [address] [place] [address] PCP - General Family Practice 10/25/10 Merari Camarillo MD [address] [place] [address] [place] [address] Cardiology 03/10/19 Cortez Forrester Jr., MD [address] [phone] Neurology 03/10/19 [facility], [address] [place] [address] Optometry 03/10/19 Student Teacher Relationship Specialty Start Date End Date Isabel Davenport MD [address] [place] [address] PCP - General Family Practice 10/25/10 Merari Camarillo MD [address] [place] [address] [place] [address] Cardiology 03/10/19 Cortez Forrester Jr., MD [address] [facility] [place] [address] [place] [address] Neurology 03/10/19 [facility], OD [address] [place] [address] Optometry 03/10/19 Student Teacher Relationship Specialty Start Date End Date Isabel Davenport MD [address] [place] [address] PCP - General Family Practice 10/25/10 Merari Camarillo MD [address] [place] [address] [place] [address] Cardiology 03/10/19 Cortez Forrester Jr., MD [address] [facility] [place] [address] [place] [address] Neurology 03/10/19 [facility], OD [address] [place] [address] Optometry 03/10/19 Student Teacher Relationship Specialty Start Date End Date Isabel Davenport MD [address] [place] [address] PCP - General Family Practice 10/25/10 Merari Camarillo MD [address] [place] [address] [place] [address] Cardiology 03/10/19 Cortez Forrester Jr., MD [address] [facility] [place] [address] [place] [phone] Neurology 03/10/19 [facility] [address] [place] [address] Optometry 03/10/19 Student Teacher Relationship Specialty Start Date End Date Isabel Davenport MD [address] [place] [address] PCP - General Family Practice 10/25/10 Merari Camarillo MD [address], [place] [address] [place] [address] Cardiology 03/10/19 Cortez Forrester Jr., MD [address] [facility] [address] [place] [phone] Neurology 03/10/19 [facility], OD [address] [place] [address] Optometry 03/10/19 Student Teacher Relationship Specialty Start Date End Date Isabel Davenport MD [address] [place] [address] PCP - General Family Practice 10/25/10 Merari Camarillo MD [address] [place] [address] [place] [address] Cardiology 03/10/19 Cortez Forrester Jr., MD [address] [facility] [address] [place] [phone] Neurology 03/10/19 [facility] Antonio, OD [address] [place] [address] Optometry 03/10/19 Student Teacher Relationship Specialty Start Date End Date Isabel Davenport MD [address] [place] [address] PCP - General Family Practice 10/25/10 Merari Camarillo MD [address] [place] [address] [place] [address] Cardiology 03/10/19 Cortez Forrester Jr., MD [address] [facility] [address] [address] [place] [address] Neurology 03/10/19 [facility], OD [address] [place] [address] Optometry 03/10/19 Student Teacher Relationship Specialty Start Date End Date Isabel Davenport MD [address] [place] [address] PCP - General Family Medicine 10/25/10 Merari Camarillo MD [address] [place] [address] [place] [address] Cardiology 03/10/19 Cortez Forrester Jr., MD [address] [facility] [address] [place] [phone] Neurology 03/10/19 [facility], OD [address] [place] [address] Optometry 03/10/19 Student Teacher Relationship Specialty Start Date End Date Isabel Davenport MD [address] [place] [address] PCP - General Family Medicine 10/25/10 Merari Camarillo MD [address] [place] [address] [place] [address] Cardiology 03/10/19 Cortez Forrester Jr., MD [address] [facility] [address] [place] [address] Neurology 03/10/19 Antonio Christina, OD [address] [place] [address] Optometry 03/10/19 Student Teacher Relationship Specialty Start Date End Date Isabel Davenport MD [address] [place] [address] PCP - General Family Medicine 10/25/10 Merari Camarillo MD [address] [place] [address] [place] [address] Cardiology 03/10/19 Cortez Forrester Jr., MD [address] [facility] [address] [place] [phone] Neurology 03/10/19 Antonio Christina, OD [address] [place] [address] Optometry 03/10/19 Student Teacher Relationship Specialty Start Date End Date Isabel Davenport MD [address] [place] [address] PCP - General Family Medicine 10/25/10 Merari Camarillo MD [address] [place] [address] [place] [address] Cardiology 03/10/19 Cortez Forrester Jr., MD [address] [facility] [address] [place] [address] Neurology 03/10/19 DaishaValeriyon, OD [address] [place] [address] Optometry 03/10/19 Student Teacher Relationship Specialty Start Date End Date Isabel Davenport MD [address] [place] [address] PCP - General Family Medicine 10/25/10 Merari Camarillo MD [address], [place] [address] [place] [address] Cardiology 03/10/19 Cortez Forrester Jr., MD [address]125 [facility] [address] [place] [phone] Neurology 03/10/19 [facility], OD [address] [place] [address] Optometry 03/10/19 Student Teacher Relationship Specialty Start Date End Date Isabel Davenport MD [address] [place] [address] PCP - General Family Medicine 10/25/10 Merari Camarillo MD [address], [place] [address] [place] [address] Cardiology 03/10/19 Cortez Forrester Jr., MD 4125 [facility] [address] [place] [address] Neurology 03/10/19 [facility], OD [address] [place] [address] Optometry 03/10/19 Student Teacher Relationship Specialty Start Date End Date Isabel Davenport MD [address] [place] [address] PCP - General Family Medicine 10/25/10 Merari Camarillo MD [address], [place] [address] [place] [address] Cardiology 03/10/19 Cortez Forerster Jr., MD 4125 [facility] [place] [address] [place] [address] Neurology 03/10/19 [facility], [address] [place] [address] Optometry 03/10/19 Student Teacher Relationship Specialty Start Date End Date Isabel Davenport MD [address] [place] [address] PCP - General Family Medicine 10/25/10 Merari Camarillo MD [address], [place] [address] [place] [address] Cardiology 03/10/19 Cortez Forrester Jr., MD [address] [facility] [address] [place] [address] Neurology 03/10/19 [facility], [address] [place] [address] Optometry 03/10/19 Student Teacher Relationship Specialty Start Date End Date Isabel Davenport MD [address] [place] [address] PCP - General Family Medicine 10/25/10 Merari Camarillo MD [address], [place] [address] [place] [address] Cardiology 03/10/19 Cortez Forrester Jr., MD 4125 [facility] [place] [address] [place] [address] Neurology 03/10/19 Antonio Christina, OD [address] [place] [address] Optometry 03/10/19 Student Teacher Relationship Specialty Start Date End Date Isabel Davenport MD [address] [place] [address] PCP - General Family Medicine 10/25/10 Merari Camarillo MD [address], [place] [address] [place] [address] Cardiology 03/10/19 Cortez Forrester Jr., MD 4125 [facility] [place] [address] [place] [phone] Neurology 03/10/19 Valeriy Christinaon, OD [address] [place] [address] Optometry 03/10/19 Fifi Calderón MD [address] [place] [address] Primary Staff Physician Cardiology 11/14/22 Student Teacher Relationship Specialty Start Date End Date Isabel Davenport MD [address] [place], [place] 675091 PCP - General Family Medicine 10/25/10 Merari Camarillo MD [address], [place] [address] [place] [address] Cardiology 03/10/19 Cortez Forrester Jr., MD 4125 [facility] [place] [address] [place] [address] Neurology 03/10/19 [facility] [address] [place] [address] Optometry 03/10/19 Fifi Calderón MD [address] [place] [address] Primary Staff Physician Cardiology 11/14/22 Student Teacher Relationship Specialty Start Date End Date Isabel Davenport MD [address] [place] [address] PCP - General Family Medicine 10/25/10 Merari Camarillo MD [address], [place] [address] [place] [address] Cardiology 03/10/19 Cortez Forrester Jr., MD 4125 [facility] [place] [address] [place] [phone] Neurology 03/10/19 Antonio Christina, OD [address] [place] [address] Optometry 03/10/19 Fifi Calderón MD [address] [place] [address] Primary Staff Physician Cardiology 11/14/22 Student Teacher Relationship Specialty Start Date End Date Isabel Davenport MD [address] [place] [address] PCP - General Family Medicine 10/25/10 Merari Camarillo MD [address], [place] [address] [place] [address] Cardiology 03/10/19 Cortez Forrester Jr., MD [address]125 [facility] [place] [address] [place] [phone] Neurology 03/10/19 Antonio Christina OD [address] [place] [address] Optometry 03/10/19 Fifi Calderón MD [address] [place] [address] Primary Staff Physician Cardiology 11/14/22 Student Teacher Relationship Specialty Start Date End Date Isabel Davenport MD [address] [place] [address] PCP - General Family Medicine 10/25/10 Merari Camarillo MD [address], [place] [address] [place] [address] Cardiology 03/10/19 Cortez Forrester Jr., MD [address]125 [facility] [address] [place] [phone] Neurology 03/10/19 Antonio Christina, OD [address] [place] [address] Optometry 03/10/19 Fifi Calderón MD [address] [place] [address] Primary Staff Physician Cardiology 11/14/22 Student Teacher Relationship Specialty Start Date End Date Isabel Davenport MD [address] [place] [address] PCP - General Family Medicine 10/25/10 Merari Camarillo MD [address], [place] [address] [place] [address] Cardiology 03/10/19 Cortez Forrester Jr., MD [address] [facility] [address] [place] [phone] Neurology 03/10/19 Antonio Christina, OD [address] [place] [address] Optometry 03/10/19 Fifi Calderón MD [address] [place] [address] Primary Staff Physician Cardiology 11/14/22 Student Teacher Relationship Specialty Start Date End Date Isabel Davenport MD [address] [place] [address] PCP - General Family Medicine 10/25/10 Merari Camarillo MD [address], [place] [address] [place] [address] Cardiology 03/10/19 Cortez Forrester Jr., MD [address]125 [facility] [place] [address] [place] [address] Neurology 03/10/19 Antonio Christina, OD [address] [place] [address] Optometry 03/10/19 Fifi Calderón MD [address] [place] [address] Primary Staff Physician Cardiology 11/14/22 Student Teacher Relationship Specialty Start Date End Date Isabel Davenport MD [address] [place] [address] PCP - General Family Medicine 10/25/10 Merari Camarillo MD [address], [place] [address] [place] [address] Cardiology 03/10/19 Cortez Forrester Jr., MD 4125 [facility] [place] [address] [place] [address] Neurology 03/10/19 Antonio Christina, OD [address] [place] [address] Optometry 03/10/19 Fifi Calderón MD [address] [place] [address] Primary Staff Physician Cardiology 11/14/22 Student Teacher Relationship Specialty Start Date End Date Isabel Davenport MD [address] [place] [address] PCP - General Family Medicine 10/25/10 Merari Camarillo MD [address], [place] [address] [place] [address] Cardiology 03/10/19 Cortez Forrester Jr., MD [address]125 [facility] [place] [address] [place] [phone] Neurology 03/10/19 Antonio Christina, OD [address] [place] [address] Optometry 03/10/19 Fifi Calderón MD [address] [place] [address] Primary Staff Physician Cardiology 11/14/22 Student Teacher Relationship Specialty Start Date End Date Isabel Davenport MD [address] [place] [address] PCP - General Family Medicine 10/25/10 Merari Camarillo MD [address], [place] [address] [place] [address] Cardiology 03/10/19 Cortez Forrester Jr., MD [address] [facility] [address] [place] [address] Neurology 03/10/19 Antonio Christina, OD [address] [place] [address] Optometry 03/10/19 Fifi Calderón MD [address] [place] [address] Primary Staff Physician Cardiology 11/14/22 Student Teacher Relationship Specialty Start Date End Date Isabel Davenport MD [address] [place], [place] 145741 PCP - General Family Medicine 10/25/10 Merari Camarillo MD [address], [place] [address] [place] [address] Cardiology 03/10/19 Cortez Forrester Jr., MD [address]125 [facility] [address] [place] [address] Neurology 03/10/19 Antonio Christina, OD [address] [place] [address] Optometry 03/10/19 Fifi Calderón MD [address] [place] [address] Primary Staff Physician Cardiology 11/14/22 Student Teacher Relationship Specialty Start Date End Date Isabel Davenport MD [address] [place] [address] PCP - General Family Medicine 10/25/10 Merari Camarillo MD [address], [place] [address] [place] [address] Cardiology 03/10/19 Cortez Forrester Jr., MD 4125 [facility] [address] [place] [address] Neurology 03/10/19 Valeriy Christinaon, OD [address] [place] [address] Optometry 03/10/19 Fifi Calderón MD [address] [place] [address] Primary Staff Physician Cardiology 11/14/22 Student Teacher Relationship Specialty Start Date End Date Isabel Davenport MD [address] [place] [address] PCP - General Family Medicine 10/25/10 Merari Camarillo MD [address], [facility] [address] [place] [address] Cardiology 03/10/19 Cortez Forrester Jr., MD [address] [phone] Neurology 03/10/19 [facility], OD [address] [place] [address] Optometry 03/10/19 Fifi Calderón MD [address] [place] [address] Primary Staff Physician Cardiology 11/14/22 Student Teacher Relationship Specialty Start Date End Date Isabel Davenport MD [address] [place] [address] PCP - General Family Medicine 10/25/10 Merari Camarillo MD [address], [place] [address] [place] [address] Cardiology 03/10/19 Cortez Forrester Jr., MD [address] [facility] [address] [place] [address] Neurology 03/10/19 Antonio Christina, OD [address] [place] [address] Optometry 03/10/19 Fifi Calderón MD [address] [place] [address] Primary Staff Physician Cardiology 11/14/22 Student Teacher Relationship Specialty Start Date End Date Isabel Davenport MD [address] [place], [place] 295351 PCP - General Family Medicine 10/25/10 Merari Camarillo MD [address] [facility] [address] [place] [address] Cardiology 03/10/19 Cortez Forrester Jr., MD 4125 [facility] [address] [place] [address] Neurology 03/10/19 Antonio Christina, OD [address] [place] [address] Optometry 03/10/19 Fifi Calderón MD [address] [place] [address] Primary Staff Physician Cardiology 11/14/22 Student Teacher Relationship Specialty Start Date End Date Isabel Davenport MD [address] [place] [address] PCP - General Family Medicine 10/25/10 Merari Camarillo MD [address], [place] [address] [place] [address] Cardiology 03/10/19 Cortez Forrester Jr., MD [address] [facility] [address] [place] [address] Neurology 03/10/19 DaishaValeriyon, OD [address] [place] [address] Optometry 03/10/19 Fifi Calderón MD [address] [place] [address] Primary Staff Physician Cardiology 11/14/22 Student Teacher Relationship Specialty Start Date End Date Isabel Davenport MD [address] [place] [address] PCP - General Family Medicine 10/25/10 Merari Camarillo MD [address], [place] [address] [place] [address] Cardiology 03/10/19 Cortez Forrester Jr., MD [address]125 [facility] [address] [place] [address] Neurology 03/10/19 DaishaAntonio, [address] [place] [address] Optometry 03/10/19 Fifi Calderón MD [address] [place], [place] 6818795 Primary Staff Physician Cardiology 11/14/22 Student Teacher Relationship Specialty Start Date End Date Isabel Davenport MD [address] [place] [address] PCP - General Family Medicine 10/25/10 Merari Camarillo MD [address], [place] [address] [place] [address] Cardiology 03/10/19 Cortez Forrester Jr., MD [address]125 [facility] [address] [place] [phone] Neurology 03/10/19 Antonio Christina, OD [address] [place] [address] Optometry 03/10/19 Fifi Calderón MD [address] [place] [address] Primary Staff Physician Cardiology 11/14/22 Student Teacher Relationship Specialty Start Date End Date Isabel Davenport MD [address] [place] [address] PCP - General Family Medicine 10/25/10 Merari Camarillo MD [address], [place] [address] [place] [address] Cardiology 03/10/19 Cortez Forrester Jr., MD [address]125 [facility] [address] [place] [phone] Neurology 03/10/19 Antonio Christina, OD [address] [place] [address] Optometry 03/10/19 Fifi Calderón MD [address] [place] [address] Primary Staff Physician Cardiology 11/14/22 Student Teacher Relationship Specialty Start Date End Date Isabel Davenport MD [address] [place] [address] PCP - General Family Medicine 10/25/10 Merari Camarillo MD [address], [place] [address] [place] [address] Cardiology 03/10/19 Cortez Forrester Jr., MD [address]125 [facility] [place] [address] [place] [address] Neurology 03/10/19 Sanford AntonioSABINE [address] [place] [address] Optometry 03/10/19 Fifi Calderón MD [address] [place], [place] 4904495 Primary Staff Physician Cardiology 11/14/22 Student Teacher Relationship Specialty Start Date End Date Isabel Davenport MD [address] [place] [address] PCP - General Family Medicine 10/25/10 Merari Camarillo MD [address], [place] [address] [place] [address] Cardiology 03/10/19 Cortez Forrester Jr., MD [address]125 [facility] [address] [place] [address] Neurology 03/10/19 Antonio Christina, OD [address] [place] [address] Optometry 03/10/19 Fifi Calderón MD [address] [place] [address] Primary Staff Physician Cardiology 11/14/22 Student Teacher Relationship Specialty Start Date End Date Isabel Davenport MD [address] [place] [address] PCP - General Family Medicine 10/25/10 Merari Camarillo MD 224 [facility] [address] [place] [address] Cardiology 03/10/19 Cortez Forrester Jr., MD 4125 [facility] [address] [place] [address] Neurology 03/10/19 DaishaAntonio velazquez, OD [address] [place] [address] Optometry 03/10/19 Fifi Calderón MD [address] [place] [address] Primary Staff Physician Cardiology 11/14/22 Student Teacher Relationship Specialty Start Date End Date Isabel Davenport MD [address] [place] [address] PCP - General Family Medicine 10/25/10 Merari Camarillo MD [address], [place] [address] [place] [address] Cardiology 03/10/19 Cortez Forrester Jr., MD [address] [facility] [address] [place] [address]45[address] Neurology 03/10/19 Antonio Christina, OD [address] [place] [address] Optometry 03/10/19 Fifi Calderón MD [address] [place] [address] Primary Staff Physician Cardiology 11/14/22 Student Teacher Relationship Specialty Start Date End Date Isabel Davenport MD [address] [place] [address] PCP - General Family Medicine 10/25/10 Merari Camarillo MD [address], [place] [address] [place] [address] Cardiology 03/10/19 Cortez Forrester Jr., MD [address] [facility] [address] [place] [address] Neurology 03/10/19 Antonio Christina, OD [address] [place] [address] Optometry 03/10/19 Fifi Calderón MD [address] [place] [address] Primary Staff Physician Cardiology 11/14/22 Student Teacher Relationship Specialty Start Date End Date Isabel Davenport MD [address] [place] [address] PCP - General Family Medicine 10/25/10 Merari Camarillo MD [address], [place] [address] [place] [address] Cardiology 03/10/19 Cortez Forrester Jr., MD 4125 [facility] [place] [address] [place] [address]45[address] Neurology 03/10/19 Antonio Christina OD [facility] [place] [address] Optometry 03/10/19 Fifi Calderón MD [address] [place] [address] Primary Staff Physician Cardiology 11/14/22 Student Teacher Relationship Specialty Start Date End Date Isabel Davenport MD [address] [place] [address] PCP - General Family Medicine 10/25/10 Merari Camarillo MD [address], [place] [address] [place] [address] Cardiology 03/10/19 Cortez Forrester Jr., MD [address] [place] [address] [place] [phone] Neurology 03/10/19 Antonio Christina, OD [address] [place] [address] Optometry 03/10/19 Fifi Calderón MD [address] [place] [address] Primary Staff Physician Cardiology 11/14/22 Student Teacher Relationship Specialty Start Date End Date Isabel Davenport MD [address] [place] [address] PCP - General Family Medicine 10/25/10 Merari Camarillo MD 224 [facility], [place] [address] [place] [address] Cardiology 03/10/19 Cortez Forrester Jr., MD 4125 [facility] [address] [place] [phone] Neurology 03/10/19 Antonio Christina, OD [address] [place] [address] Optometry 03/10/19 Fifi Calderón MD [address] [place] [address] Primary Staff Physician Cardiology 11/14/22 Student Teacher Relationship Specialty Start Date End Date Isabel Davenport MD [address] [place] [address] PCP - General Family Medicine 10/25/10 Merari Camarillo MD [address], [place] [address] [place] [address] Cardiology 03/10/19 Cortez Forrester Jr., MD 4125 [facility] [address] [place] [address] Neurology 03/10/19 Antonio Christina, OD [address] [place] [address] Optometry 03/10/19 Fifi Calderón MD [address] [place], [place] 9210495 Primary Staff Physician Cardiology 11/14/22 Student Teacher Relationship Specialty Start Date End Date Isabel Davenport MD [address] [place] [address] PCP - General Family Medicine 10/25/10 Merari Camarillo MD [address], [place] [address] [place] [address] Cardiology 03/10/19 Cortez Forrester Jr., MD 4125 [facility] [address] [place] [address] Neurology 03/10/19 Antonio Christina, OD [address] [place] [address] Optometry 03/10/19 Fifi Calderón MD [address] [place], [place] 2786195 Primary Staff Physician Cardiology 11/14/22 Vadim Teixeira, DALIA.APPLICATION INFRASTRUCTURE ENGINEER [address] [place], [place] [address] New Vehicle Sales Consultant Internal Medicine 10/12/24 Student Teacher Relationship Specialty Start Date End Date Isabel Davenport MD [address] [place] [address] PCP - General Family Medicine 10/25/10 Merari Camarillo MD [address], [place] [address] [place], [place] [id number] Cardiology 03/10/19 Cortez Forrester Jr., MD 4125 [facility] [address] [place] [address]4514 Neurology 03/10/19 Antonio Christina OD [address] [place], [place] 95129[address] Optometry 03/10/19 Fifi Calderón MD [address] [place] [place], [place] [address]95 Primary Staff Physician Cardiology 11/14/22 Vadim Teixeira, DALIA.APPLICATION INFRASTRUCTURE ENGINEER [address] [place] [address] New Vehicle Sales Consultant Internal Medicine 10/12/24 Student Teacher Relationship Specialty Start Date End Date Isabel Davenport MD [address] [place] [address] PCP - General Family Medicine 10/25/10 Merari Camarillo MD [address], [facility] [address] [place] [address] Cardiology 03/10/19 Cortez Forrester Jr., MD [address] [address] Neurology 03/10/19 Antonio Christina, OD [address] [place] [address] Optometry 03/10/19 Fifi Calderón MD [address] [place] [address] Primary Staff Physician Cardiology 11/14/22 Vadim Teixeira, RETAIL BUSINESS ANALYST.APPLICATION INFRASTRUCTURE ENGINEER [address] [place] [address] New Vehicle Sales Consultant Internal Medicine 10/12/24 Student Teacher Relationship Specialty Start Date End Date Isabel Davenport MD [address] [place] [address] PCP - General Family Medicine 10/25/10 Merari Camarillo MD [address] [address] Cardiology 03/10/19 Cortez Forrester Jr., MD [address] [phone] Neurology 03/10/19 Antonio Christina, OD [address] [place] [address] Optometry 03/10/19 Fifi Calderón MD [address] [place], [place] 2666395 Primary Staff Physician Cardiology 11/14/22 Vadim Teixeira APRN.APPLICATION INFRASTRUCTURE ENGINEER [address] [place], [place] [address] New Vehicle Sales Consultant Internal Medicine 10/12/24 Student Teacher Relationship Specialty Start Date End Date Isabel Davenport MD [address] [place], [place] 246601 PCP - General Family Medicine 10/25/10 Merari Camarillo MD [address] [facility], [place] [address] [place], [place] [phone] Cardiology 03/10/19 Cortez Forrester Jr., MD [address] [place] [address] [place] [phone] Neurology 03/10/19 Antonio Christina OD [address] [place] [address] Optometry 03/10/19 Fifi Calderón MD [address] [place] [address] Primary Staff Physician Cardiology 11/14/22 Vadim Teixeira APRN.APPLICATION INFRASTRUCTURE ENGINEER [address] [place], [place] [address] New Vehicle Sales Consultant Internal Medicine 10/12/24 Student Teacher Relationship Specialty Start Date End Date Isabel Davenport MD [address] [place] [address] PCP - General Family Medicine 10/25/10 Merari Camarillo MD [address], [place] [address] [place] [address] Cardiology 03/10/19 Cortez Forrester Jr., MD 4125 [facility] [place] [address] [place] [address] Neurology 03/10/19 Antonio Christina OD [address] [place] [address] Optometry 03/10/19 Fifi Calderón MD [address] [place], [place] 437[address] Primary Staff Physician Cardiology 11/14/22 Vadim Teixeira APRN.APPLICATION INFRASTRUCTURE ENGINEER [address] [place] [address] New Vehicle Sales Consultant Internal Medicine 10/12/24 Student Teacher Relationship Specialty Start Date End Date Isabel Davenport MD [address] [place] [address] PCP - General Family Medicine 10/25/10 Merari Camarillo MD [address], [place] [address] [place] [address] Cardiology 03/10/19 Cortez Forrester Jr., MD 4125 [facility] [address] [place] [address]45[address] Neurology 03/10/19 Antonio Christina OD [address] [place] [address] Optometry 03/10/19 Fifi Calderón MD [address] [place] [address] Primary Staff Physician Cardiology 11/14/22 Vadim Teixeira, DALIA.APPLICATION INFRASTRUCTURE ENGINEER [address] [place], [place] [address] New Vehicle Sales Consultant Internal Medicine 10/12/24 Student Teacher Relationship Specialty Start Date End Date Isabel Davenport MD [address] [place], [place] 327541 PCP - General Family Medicine 10/25/10 Merari Camarillo MD 224 [facility] [address] [place] [address] Cardiology 03/10/19 Cortez Forrester Jr., MD 4125 [facility] [address] [place] [phone] Neurology 03/10/19 Antonio Christina, OD [address] [place] [address] Optometry 03/10/19 Fifi Calderón MD [address] [place] [address] Primary Staff Physician Cardiology 11/14/22 Vadim Teixeira, DALIA.APPLICATION INFRASTRUCTURE ENGINEER [address] [place], [place] [address] New Vehicle Sales Consultant Internal Medicine 10/12/24 Student Teacher Relationship Specialty Start Date End Date Isabel Davenport MD [address] [place] [address] PCP - General Family Medicine 10/25/10 Merari Camarillo MD [address], [place] [address] [place] [address] Cardiology 03/10/19 Cortez Forrester Jr., MD 4125 [facility] [place] [address] [place] [phone] Neurology 03/10/19 Daishacaroline AntonioSABINE [address] [place] [address] Optometry 03/10/19 Fifi Calderón MD [address] [place] [address] Primary Staff Physician Cardiology 11/14/22 Vadim Teixeira APRN.APPLICATION INFRASTRUCTURE ENGINEER [address] [place] [address] New Vehicle Sales Consultant Internal Medicine 10/12/24 Student Teacher Relationship Specialty Start Date End Date Isabel Davenport MD [address] [place] [address] PCP - General Family Medicine 10/25/10 Merari Camarillo MD [address], [place] [address] [place] [address] Cardiology 03/10/19 Cortez Forrester Jr., MD 4125 [facility] [place] [address] [place] [address] Neurology 03/10/19 Daishacaroline Antonio, OD [address] [place] [address] Optometry 03/10/19 Fifi Calderón MD [address] [place], [place] [phone] Primary Staff Physician Cardiology 11/14/22 Vadim Teixeira APRN.APPLICATION INFRASTRUCTURE ENGINEER [address] [place] [address] [place] [address] New Vehicle Sales Consultant Internal Medicine 10/12/24 Student Teacher Relationship Specialty Start Date End Date Isabel Davenport MD [address] [place] [address] PCP - General Family Medicine 10/25/10 Merari Camarillo MD [address] [facility] [place] [address] [place] [address] Cardiology 03/10/19 Cortez Forrester Jr., MD 4125 [facility] [address] [place] [phone] Neurology 03/10/19 Antonio Christina, OD [address] [place] [address] Optometry 03/10/19 Fifi Calderón MD [address] [place], [place] 0474195 Primary Staff Physician Cardiology 11/14/22 Vadim Teixeira, DALIA.APPLICATION INFRASTRUCTURE ENGINEER [address] [facility] [place], [place] [address] New Vehicle Sales Consultant Internal Medicine 10/12/24 Student Teacher Relationship Specialty Start Date End Date Isabel Davenport MD [address] [place] [address] PCP - General Family Medicine 10/25/10 Merari Camarillo MD [address], [place] [address] [place], [place] [id number] Cardiology 03/10/19 Cortez Forrester Jr., MD [address] [facility] [address] [place] [phone] Neurology 03/10/19 Antonio Christina OD [address] [place], [place] [phone] Optometry 03/10/19 Fifi Calderón MD [address] [place], [place] [id number] Primary Staff Physician Cardiology 11/14/22 Vadim Teixeira, DALIA.APPLICATION INFRASTRUCTURE ENGINEER [address] [place] [address] New Vehicle Sales Consultant Internal Medicine 10/12/24 Student Teacher Relationship Specialty Start Date End Date Isabel Davenport MD [address] [place] [address] PCP - General Family Medicine 10/25/10 Merari Camarillo MD [address], [place] [address] [place] [address] Cardiology 03/10/19 Cortez Forrester Jr., MD [address] [facility] [place] [address] [place] [phone] Neurology 03/10/19 Antonio Christina OD [address] [place] [address] Optometry 03/10/19 Fifi Calderón MD [address] [place] [address] Primary Staff Physician Cardiology 11/14/22 Vadim Teixeira APRN.APPLICATION INFRASTRUCTURE ENGINEER [address] [place], [place] [address] New Vehicle Sales Consultant Internal Medicine 10/12/24 Team Status: Active Member [...] April 08, 2025 End: April 08, 2025 Student Teacher Relationship Specialty Start Date End Date Isabel Davenport MD [address] [place] [address] PCP - General Family Medicine 10/25/10 Merari Camarillo MD [address], [place] [address] [place] [address] Cardiology 03/10/19 Cortez Forrester Jr., MD [address] [facility] [place] [address] [place] [phone] Neurology 03/10/19 Antonio Christina OD [address] [place] [address] Optometry 03/10/19 Fifi Calderón MD [address] [place], [place] [phone] Primary Staff Physician Cardiology 11/14/22 Vadim Teixeira APRN.APPLICATION INFRASTRUCTURE ENGINEER [address] [place] [address] New Vehicle Sales Consultant Internal Medicine 10/12/24 Team Status: Inactive Member Role Status Dates Dr. Jaspreet Davenport MD Primary Care Provider Active Start: April 20, 2025 End: April 20, 2025 Dr. Dandre Melissa MD Attending Provider Activ e Start: April 20, 2025 End: April 20, 2025 Dr. Dandre Melissa MD Referring Provider Activ e Start: April 20, 2025 End: April 20, 2025 Student Teacher Relationship Specialty Start Date End Date Isabel Davenport MD [address] [place] [address] PCP - General Family Medicine 10/25/10 Merari Camarillo MD [address] [facility], [place] [address] [place], [place] [id number] Cardiology 03/10/19 Cortez Forrester Jr., MD [address] [facility] [place] [address] [place] [phone] Neurology 03/10/19 Antonio Christina OD [address] [address] Optometry 03/10/19 Fifi Calderón MD [address] [place], [place] [phone] Primary Staff Physician Cardiology 11/14/22 Vadim Teixeira, DALIA.APPLICATION INFRASTRUCTURE ENGINEER [address] [place] [address] New Vehicle Sales Consultant Internal Medicine 10/12/24 Team Status: Active Member Role Status Dates Dr. Jaspreet Davenport MD Primary Care Provider Active Start: April 20, 2025 End: April 20, 2025 Dr. Yoav Navas MD Attending Provider Active S tart: April 20, 2025 End: April 20, 2025 Dr. Dandre Melissa MD Referring Provider Activ e Start: April 20, 2025 End: April 20, 2025 Team Status: Inactive Member Role Status Dates Dr. Jaspreet Davenport MD Primary Care Provider Active Start: April 24, 2025 End: April 24, 2025 Dr. Dandre Melissa MD Attending Provider Activ e Start: April 24, 2025 End: April 24, 2025 Dr. Dandre Melissa MD Referring Provider Activ e Start: April 24, 2025 End: April 24, 2025 Student Teacher Relationship Specialty Start Date End Date Isabel Davenport MD [address] [place] [address] PCP - General Family Medicine 10/25/10 Merari Camarillo MD [address], [facility] [address] [place] [address] Cardiology 03/10/19 Cortez Frorester Jr., MD [address] [facility] [address] [place] [phone] Neurology 03/10/19 Daishacaroline Antonio, OD [address] [place] [address] Optometry 03/10/19 Fifi Calderón MD [address] [place], [place] [phone] Primary Staff Physician Cardiology 11/14/22 Vadim Teixeira APRN.APPLICATION INFRASTRUCTURE ENGINEER [address] [place] [address] New Vehicle Sales Consultant Internal Medicine 10/12/24 Student Teacher Relationship Specialty Start Date End Date Isabel Davenport MD [address] [place] [address] PCP - General Family Medicine 10/25/10 Merari Camarillo MD [address] [facility] [address] [place] [address] Cardiology 03/10/19 Cortez Forrester Jr., MD [address] [facility] [address] [place] [phone] Neurology 03/10/19 Antonio Christina, OD [address] [place] [address] Optometry 03/10/19 Fifi Calderón MD [address] [place], [place] [id number] Primary Staff Physician Cardiology 11/14/22 Vadim Teixeira, DALIA.APPLICATION INFRASTRUCTURE ENGINEER [address] [facility] [place], [place] [address] New Vehicle Sales Consultant Internal Medicine 10/12/24 Student Teacher Relationship Specialty Start Date End Date Isabel Davenport MD [address] [place] [address] PCP - General Family Medicine 10/25/10 Merari Camarillo MD [address], [place] [address] [place] [address] Cardiology 03/10/19 Cortez Forrester Jr., MD [address] [facility] [place] [address] [place] [phone] Neurology 03/10/19 Antonio Christina OD [address] [place] [address] Optometry 03/10/19 Fifi Calderón MD [address] [place], [place] [phone] Primary Staff Physician Cardiology 11/14/22 Vadim Teixeira, DALIA.APPLICATION INFRASTRUCTURE ENGINEER [address] [facility] [place] [address] New Vehicle Sales Consultant Internal Medicine 10/12/24 Student Teacher Relationship Specialty Start Date End Date Isabel Davenport MD [address] [place] [address] PCP - General Family Medicine 10/25/10 Merari Camarillo MD [address], [place] [address] [place] [address] Cardiology 03/10/19 Cortez Forrester Jr., MD [address] [facility] [address] [place] [phone] Neurology 03/10/19 Antonio Christina, OD [address] [place] [address] Optometry 03/10/19 Fifi Calderón MD [address] [place] [address] Primary Staff Physician Cardiology 11/14/22 Vadim Teixeira APRN.APPLICATION INFRASTRUCTURE ENGINEER [address] [facility] [place] [address] New Vehicle Sales Consultant Internal Medicine 10/12/24 Student Teacher Relationship Specialty Start Date End Date Isabel Davenport MD [address] [place] [address] PCP - General Family Medicine 10/25/10 Merari Camarillo MD [address] [facility] [address] [place] [address] Cardiology 03/10/19 Cortez Forrester Jr., MD [address] [facility] [address] [place] [phone] Neurology 03/10/19 Antonio Christina, OD [address] [place] [address] Optometry 03/10/19 Fifi Calderón MD [address] [place] [address] Primary Staff Physician Cardiology 11/14/22 Vadim Teixeira APRN.APPLICATION INFRASTRUCTURE ENGINEER [address] [facility] [place], [place] [address] New Vehicle Sales Consultant Internal Medicine 10/12/24 Student Teacher Relationship Specialty Start Date End Date Isabel Davenport MD [address] [place], [place] [phone] PCP - General Family Medicine 10/25/10 Merari Camarillo MD [address] [facility], [place] [address] [place], [place] [id number] Cardiology 03/10/19 Cortez Forrester Jr., MD [address] [facility] [address] [place] [phone] Neurology 03/10/19 Antonio Christina OD [address] [place] [address] Optometry 03/10/19 Fifi Calderón MD [address] [place] [address] Primary Staff Physician Cardiology 11/14/22 Vadim Teixeira APRN.APPLICATION INFRASTRUCTURE ENGINEER [address] [facility] [place], [place] [address] New Vehicle Sales Consultant Internal Medicine 10/12/24 Student Teacher Relationship Specialty Start Date End Date Isabel Davenport MD [address] [place] [address] PCP - General Family Medicine 10/25/10 Merari Camarillo MD [address], [place] [address] [place] [address] Cardiology 03/10/19 Cortez Forrester Jr., MD [address] [facility] [place] [address] [place] [phone] Neurology 03/10/19 Antonio Christina, OD [address] [place] [address] Optometry 03/10/19 Fifi Calderón MD [address] [place], [place] [phone] Primary Staff Physician Cardiology 11/14/22 Vadim Teixeira APRN.APPLICATION INFRASTRUCTURE ENGINEER [address] [facility] [place] [address] New Vehicle Sales Consultant Internal Medicine 10/12/24 Student Teacher Relationship Specialty Start Date End Date Isabel Davenport MD [address] [place] [address] PCP - General Family Medicine 10/25/10 Merari Camarillo MD [address], [place] [address] [place] [address] Cardiology 03/10/19 Cortez Forrester Jr., MD [address] [facility] [place] [address] [place] [phone] Neurology 03/10/19 Antonio Christina, SABINE [address] [place] [address] Optometry 03/10/19 Fifi Calderón MD [address] [place] [address] Primary Staff Physician Cardiology 11/14/22 Vadim Teixeira APRN.APPLICATION INFRASTRUCTURE ENGINEER [address] [facility] [place], [place] [address] New Vehicle Sales Consultant Internal Medicine 10/12/24 Goals (unrecognized section and [...] BE BASED ON THE PRIMARY CLINICAL RECORDS. [facility] [employer] [facility]. provides no warranty or guarantee of the accuracy or completeness of information in this document.
[2025-08-20 04:50] VITALS: BP 158/90; PULSE 64; RESP 18; TEMP 36.8; O2SAT 99
== END 2025-08-20 05:05 | disposition home or self-care (01) ==
PROVIDERS: Emergency Provider Emergency Medicine; PCP Family Medicine; Visit Provider Emergency Medicine
DX: S09.90XA Unspecified injury of head, initial encounter (principal); E11.9 Type 2 diabetes mellitus without complications; I10 Essential (primary) hypertension; Z86.73 Personal history of transient ischemic attack (TIA), and cerebral infarction without residual deficits; W22.09XA Striking against other stationary object, initial encounter; Y93.89 Activity, other specified; Z79.899 Other long term (current) drug therapy; Z79.84 Long term (current) use of oral hypoglycemic drugs; Z79.82 Long term (current) use of aspirin; Z79.02 Long term (current) use of antithrombotics/antiplatelets; Z79.51 Long term (current) use of inhaled steroids; J45.909 Unspecified asthma, uncomplicated
CPT/HCPCS: 70450; 99282